=== PATIENT | female | born 1945 | race Caucasian/White ===

== ENCOUNTER 2020-06-02 10:29 | Outpatient (REF) | payer MEDICARE, SELFPAY ==
[2020-06-02 11:39] LABS: MANUAL DIFF FLAG NO
[2020-06-02 11:48] LABS: Basophils Absolute Auto 0.1 X10*3/uL (0.0-0.2); Basophils Percent Auto 0.6 % (0-2); Eosinophils Absolute Auto 0.1 X10*3/uL (0.0-0.4); Eosinophils Percent Auto 1.7 % (0-4); Hematocrit 43.7 % (37-47); Hemoglobin 13.7 g/dl (12.0-16.0); Imm Gran Abs Auto 0.02 X10*3/uL (0.00-0.03); Imm Gran Pct Auto 0.3 % (0.0-0.4); Lymphocytes Absolute Auto 2.1 X10*3/uL (1.2-4.9); Lymphocytes Percent Auto 27.5 % (20-40); Mean Corpuscular HGB Conc 31.4 g/dl (31.0-35.0); Mean Corpuscular Hemoglobin 28.5 pg (27.0-33.0); Mean Corpuscular Volume 90.9 fL (80-98); Mean Platelet Volume 10.3 fL (9.4-12.3); Monocytes Absolute Auto 0.7 X10*3/uL (0.1-1.2); Monocytes Percent Auto 9.6 % (2-11); Neutrophils Absolute Auto 4.6 X10*3/uL (2.0-8.3); Neutrophils Percent Auto 60.3 % (45-73); Platelet Count 246 X10*3/uL (160-400); Red Blood Count 4.81 X10*6/uL (4.20-5.50); Red Cell Distribution Width 14.6 % (11.0-16.0); White Blood Count 7.7 X10*3/uL (4.8-10.8)
[2020-06-02 11:56] LABS: Estimated Average Glucose 318 mg/dL; Hemoglobin A1c % 12.7 %
[2020-06-02 12:07] LABS: Alanine Aminotransferase 13 U/L (0-31); Albumin Level 3.8 g/dL (3.5-5.0); Alkaline Phosphatase 92 U/L (39-117); Anion Gap 14 (12-20); Aspartate Amino Transferase 15 U/L (5-31); Bilirubin Total 0.5 mg/dL (0.0-1.0); Blood Urea Nitrogen 13 mg/dL (9-16); Calcium 9.2 mg/dL (8.4-10.2); Carbon Dioxide 28 mmol/L (22-29); Chloride 103 mmol/L (96-108); Cholesterol 182 mg/dL; Estimated Glomerular Filt Rate > 60; Glucose Fasting 167 mg/dL (60-99); HDL Cholesterol 85 mg/dL; LDL Cholesterol Calculated 84 mg/dl; Potassium 4.1 mmol/l (3.3-5.1); Sodium 141 mmol/L (135-145); Total Protein 7.4 g/dL (6.5-8.0); Triglycerides 67 mg/dL
[2020-06-02 12:14] LABS: Creatinine Urine 109.26 mg/dL; Microalbum/Creatinine Ratio Ur 35.6 ug/mg cr
[2020-06-02 12:20] LABS: TSH reflex Free T4 2.21 mIU/mL (0.32-4.0); Vitamin D 25-OH Total 39.4 ng/mL (>30)
[2020-06-02 12:34] LABS: Folate 19.4 ng/mL (> or = 4.0); Vitamin B12 1329 pg/mL (200-900)
== END 2020-06-02 10:30 | disposition home or self-care (01) ==
LOC: HO.LAB 10:29
PROVIDERS: PCP Internal Medicine; Visit Provider Internal Medicine
DX: E11.65 Type 2 diabetes mellitus with hyperglycemia (principal); E11.29 Type 2 diabetes mellitus with other diabetic kidney complication; R63.6 Underweight; R00.2 Palpitations; Z78.0 Asymptomatic menopausal state
CPT/HCPCS: 36415; 80053; 80061; 82043; 82306; 82607; 82746; 83036; 84443; 85025

== ENCOUNTER 2021-08-19 09:16 | Outpatient (REF) | payer MEDICARE, SELFPAY ==
[2021-08-19 10:43] LABS: Creatinine Urine 98.64 mg/dL; Microalbum/Creatinine Ratio Ur 42.5 ug/mg cr
[2021-08-19 10:50] LABS: Alanine Aminotransferase 14 U/L (0-31); Anion Gap 13 (12-20); Aspartate Amino Transferase 14 U/L (5-31); Blood Urea Nitrogen 15 mg/dL (9-16); Calcium 9.7 mg/dL (8.4-10.2); Carbon Dioxide 30 mmol/L (22-29); Chloride 100 mmol/L (96-108); Cholesterol 192 mg/dL; Estimated Glomerular Filt Rate > 60; Glucose Fasting 165 mg/dL (60-99); HDL Cholesterol 84 mg/dL; LDL Cholesterol Calculated 96 mg/dl; Potassium 4.2 mmol/L (3.3-5.1); Sodium 139 mmol/L (135-145); Triglycerides 63 mg/dL
[2021-08-19 11:00] LABS: Vitamin D 25-OH Total 50.9 ng/mL (>30)
== END 2021-08-19 09:17 | disposition home or self-care (01) ==
LOC: HO.LAB 09:16
PROVIDERS: PCP Internal Medicine; Visit Provider Internal Medicine
DX: E11.65 Type 2 diabetes mellitus with hyperglycemia (principal); E11.29 Type 2 diabetes mellitus with other diabetic kidney complication; R00.2 Palpitations; R63.6 Underweight; R80.9 Proteinuria, unspecified
CPT/HCPCS: 36415; 80048; 80061; 82043; 82306; 84450; 84460

== ENCOUNTER 2022-07-11 18:27 | Inpatient (IN) | payer MEDICARE, SELFPAY ==
--- NOTE | ~2022-07-11 | XR_ITS ---
EXAMINATION: XR CHEST CLINICAL INFORMATION: Shortness of breath, hypoxic with O2 sat of 86% COMPARISON: Chest x-ray 01/22/2019 TECHNIQUE: Frontal view of the chest was obtained. FINDINGS: Blunted costophrenic angles consistent with small bilateral pleural effusions. Patchy bibasilar opacities right greater than left. No pneumothorax. There appears to be mild bronchial wall thickening bilaterally. Cardiomediastinal silhouette within normal limits. Slightly prominent pulmonary vascular markings, similar to prior. No evidence of overt pulmonary edema. No acute osseous injury identified. XR/XR chest 1V IMPRESSION: 1. Small bilateral pleural effusions and bibasilar opacities, right greater than left, which may represent atelectasis, sequela of aspiration, or pneumonia. 2. Mild bilateral bronchial wall thickening.
--- NOTE | 2022-07-11 18:35 | ECG_ITS ---
Test Reason : SOB Blood Pressure : / mmHG Vent. Rate : 103 BPM Atrial Rate : 103 BPM P-R Int : 124 ms QRS Dur : 068 ms QT Int : 320 ms P-R-T Axes : 084 015 069 degrees QTc Int : 419 ms Sinus tachycardia Biatrial enlargement Abnormal ECG When compared with ECG of 03-AUG-2018 10:41, T wave inversion no longer evident in Inferior leads Referred By: Gopi Sarmiento Electronically Signed By:SANJAY HARVEY MD
[2022-07-11 18:37] VITALS: BP 122/68; PULSE 111; RESP 18; TEMP 36.9; O2SAT 86; BMI 16.2
--- NOTE | 2022-07-11 18:41 | ED_ITS ---
HPI - General Adult General Chief complaint: Dyspnea Stated complaint: rapid heart beat/ sob Time Seen by Provider: 07/11/22 19:01 Related Data Home Medications Medication Instructions Recorded Confirmed ascorbic acid (vitamin C) 500 mg mg PO 05/26/20 06/16/22 capsule biotin 1 mg capsule 1 mg PO DAILY 05/26/20 06/16/22 lutein 20 mg capsule 20 mg PO DAILY 05/26/20 06/16/22 magnesium citrate 125 mg capsule 125 mg PO BEDTIME 05/26/20 06/16/22 tceesqbs-fki-uqizb ac 400 tab PO 05/26/20 06/16/22 mcg-calcium carb 500 mg-vit K1 20 mcg tablet (Women's 50 Plus Multivitamin) metformin 500 mg tablet 500 mg PO QPM 06/16/22 06/16/22 Previous Rx's Medication Instructions Recorded blood sugar diagnostic (SpendjiTouch #100 ea 07/08/20 Ultra Blue Test Strip) blood-glucose meter #1 ea 07/08/20 lancets 33 gauge (OneTouch Delica #100 ea 07/08/20 Lancets) Allergies Allergy/AdvReac Type Severity Reaction Status Date / Time sulfa Allergy Unknown diarrhea Verified 06/16/22 14:17 [facility] Past Medical History Medical History (Updated 07/11/22 @ 20:05 by Elizabeth Paredes) Diabetes mellitus with hyperglycemia, without long-term current use of insulin Diabetes mellitus with microalbuminuria, without long-term current use of insulin H/O fracture of wrist Hx of fracture of wrist Intermittent palpitations Pneumothorax Underweight Vaccination refused by patient Surgical History History of femoral hernia repair Family History Family History Father Diabetes mellitus Mother Essential hypertension Sister Breast cancer Social History Social History Housing: House Alcohol intake: current Patient Tobacco Use Status: Never used Tobacco e-Cigarette/Vaping Use: Never Used Advance Directives: No Advance Directives Information Provided: Yes Current occupational status: retired Cognitive needs: No Hearing needs: No Vision needs: No Physical Exam ED Vital Signs: Vital Signs - 24 hr 07/11/22 18:37 07/11/22 19:30 Temperature 98.4 F Pulse Rate 111 H 103 H Respiratory Rate 18 20 Blood Pressure 122/68 Pulse Oximetry 86 L Oxygen Delivery Method Room Air BMI result Body Mass Index 16.2 Course Course Course Narrative: RME; 76 yold garrett presents to the ED for coughing and SOB for couple of weeks. 02 sat on room air 86%. patient is tachychardic. lower extremities negative for swelling, pitting edema, or calf tenderness. lungs sounds are clear, but cough sound wet. Charge nurse Tiffany informed and patient will be brought into the ED. nasal canula placed on patient. Medications Administered Discontinued Medications Generic Name Dose Route Start Last Admin Trade Name Freq PRN Reason Stop Dose Admin Albuterol/Ipratropium 3 ml 07/11/22 19:12 07/11/22 19:30 Albuterol/Iprat 2.5/0.5mg 3 Ml Ampul.Neb INHALE 07/11/22 19:13 3 ml ONCE ONE Administration Methylprednisolone Sodium Succinate 125 mg 07/11/22 19:12 07/11/22 19:43 Methylprednisolone Sod Succ 125 Mg/2 Ml Vial IVPUSH 07/11/22 19:13 125 mg ONCE ONE Administration Medical Decision Making Lab Data 07/11/22 18:45 07/11/22 18:45 Labs: Lab Results 07/11/22 07/11/22 07/11/22 Range/Units 18:45 18:45 18:45 WBC 17.2 H (4.8-10.8) X10*3/uL RBC 4.53 (4.20-5.50) X10*6/uL Hgb 13.3 (12.0-16.0) g/dl Hct 40.5 (37.0-47.0) % MCV 89.4 (80.0-98.0) fL MCH 29.4 (27.0-33.0) pg MCHC 32.8 (31.0-35.0) g/dl RDW 14.4 (11.0-16.0) % Plt Count 379 (160-400) X10*3/uL MPV 9.7 (9.4-12.3) fL Immature Gran % (Auto) 1.5 H (0.0-0.4) % Neut % (Auto) 86.8 H (45-73) % Lymph % (Auto) 5.9 L (20-40) % [place] % (Auto) 5.5 (2-11) % Eos % (Auto) 0.2 (0-4) % Baso % (Auto) 0.1 (0-2) % Lymph # (Auto) 1.0 L (1.2-4.9) X10*3/uL [place] # (Auto) 0.9 (0.1-1.2) X10*3/uL Eos # (Auto) 0.0 (0.0-0.4) X10*3/uL Baso # (Auto) 0.0 (0.0-0.2) X10*3/uL Abs Immat Gran (auto) 0.25 H (0.00-0.03) X10*3/uL Absolute Neuts (auto) 15.0 H (2.0-8.3) x10*3/uL Absolute Nucleated RBC 0.000 (0.0-0.012) X10*3/uL Nucleated RBC % (auto) 0.0 (0.0-0.2) /100WBC PT (10.0-13.1) SEC INR (0.9-1.1) APTT (26.0-36.4) SEC Sodium 138 (135-145) mmol/L Potassium 4.1 (3.3-5.1) mmol/L Chloride 96 (96-108) mmol/L Carbon Dioxide 31 H (22-29) mmol/L Anion Gap 15 (12-20) BUN 19 H (9-16) mg/dL Creatinine 0.81 (0.5-1.4) mg/dL Estim Creat Clear Calc 41.4 Estimated GFR > 60 Random Glucose 480 H* (60-115) mg/dL Lactic Acid (0.5-2.0) mmol/L Calcium 9.4 (8.4-10.2) mg/dL Total Bilirubin 0.4 (0.0-1.0) mg/dL AST 14 (5-31) U/L ALT 19 (0-31) U/L Alkaline Phosphatase 104 (39-117) U/L Troponin I High Sens < 3.5 (<3.5-17.0) ng/L B-Natriuretic Peptide (<100) pg/mL Total Protein 6.6 (6.5-8.0) g/dL Albumin 3.1 L (3.5-5.0) g/dL Influenza Type A (PCR) (Negative) Influenza Type B (PCR) (Negative) RSV RNA Qual (PCR) (Negative) SARS-CoV-2 RNA (RT-PCR) (Negative) 07/11/22 07/11/22 07/11/22 Range/Units 18:45 18:45 18:45 WBC (4.8-10.8) X10*3/uL RBC (4.20-5.50) X10*6/uL Hgb (12.0-16.0) g/dl Hct (37.0-47.0) % MCV (80.0-98.0) fL MCH (27.0-33.0) pg MCHC (31.0-35.0) g/dl RDW (11.0-16.0) % Plt Count (160-400) X10*3/uL MPV (9.4-12.3) fL Immature Gran % (Auto) (0.0-0.4) % Neut % (Auto) (45-73) % Lymph % (Auto) (20-40) % [place] % (Auto) (2-11) % Eos % (Auto) (0-4) % Baso % (Auto) (0-2) % Lymph # (Auto) (1.2-4.9) X10*3/uL [place] # (Auto) (0.1-1.2) X10*3/uL Eos # (Auto) (0.0-0.4) X10*3/uL Baso # (Auto) (0.0-0.2) X10*3/uL Abs Immat Gran (auto) (0.00-0.03) X10*3/uL Absolute Neuts (auto) (2.0-8.3) x10*3/uL Absolute Nucleated RBC (0.0-0.012) X10*3/uL Nucleated RBC % (auto) (0.0-0.2) /100WBC PT 13.5 H (10.0-13.1) SEC INR 1.2 H (0.9-1.1) APTT 30.6 (26.0-36.4) SEC Sodium (135-145) mmol/L Potassium (3.3-5.1) mmol/L Chloride (96-108) mmol/L Carbon Dioxide (22-29) mmol/L Anion Gap (12-20) BUN (9-16) mg/dL Creatinine (0.5-1.4) mg/dL Estim Creat Clear Calc Estimated GFR Random Glucose (60-115) mg/dL Lactic Acid (0.5-2.0) mmol/L Calcium (8.4-10.2) mg/dL Total Bilirubin (0.0-1.0) mg/dL AST (5-31) U/L ALT (0-31) U/L Alkaline Phosphatase (39-117) U/L Troponin I High Sens (<3.5-17.0) ng/L B-Natriuretic Peptide 138 H (<100) pg/mL Total Protein (6.5-8.0) g/dL Albumin (3.5-5.0) g/dL Influenza Type A (PCR) NEGATIVE (Negative) Influenza Type B (PCR) NEGATIVE (Negative) RSV RNA Qual (PCR) NEGATIVE (Negative) SARS-CoV-2 RNA (RT-PCR) NEGATIVE (Negative) 07/11/22 Range/Units 19:31 WBC (4.8-10.8) X10*3/uL RBC (4.20-5.50) X10*6/uL Hgb (12.0-16.0) g/dl Hct (37.0-47.0) % MCV (80.0-98.0) fL MCH (27.0-33.0) pg MCHC (31.0-35.0) g/dl RDW (11.0-16.0) % Plt Count (160-400) X10*3/uL MPV (9.4-12.3) fL Immature Gran % (Auto) (0.0-0.4) % Neut % (Auto) (45-73) % Lymph % (Auto) (20-40) % [place] % (Auto) (2-11) % Eos % (Auto) (0-4) % Baso % (Auto) (0-2) % Lymph # (Auto) (1.2-4.9) X10*3/uL [place] # (Auto) (0.1-1.2) X10*3/uL Eos # (Auto) (0.0-0.4) X10*3/uL Baso # (Auto) (0.0-0.2) X10*3/uL Abs Immat Gran (auto) (0.00-0.03) X10*3/uL Absolute Neuts (auto) (2.0-8.3) x10*3/uL Absolute Nucleated RBC (0.0-0.012) X10*3/uL Nucleated RBC % (auto) (0.0-0.2) /100WBC PT (10.0-13.1) SEC INR (0.9-1.1) APTT (26.0-36.4) SEC Sodium (135-145) mmol/L Potassium (3.3-5.1) mmol/L Chloride (96-108) mmol/L Carbon Dioxide (22-29) mmol/L Anion Gap (12-20) BUN (9-16) mg/dL Creatinine (0.5-1.4) mg/dL Estim Creat Clear Calc Estimated GFR Random Glucose (60-115) mg/dL Lactic Acid 1.6 (0.5-2.0) mmol/L Calcium (8.4-10.2) mg/dL Total Bilirubin (0.0-1.0) mg/dL AST (5-31) U/L ALT (0-31) U/L Alkaline Phosphatase (39-117) U/L Troponin I High Sens (<3.5-17.0) ng/L B-Natriuretic Peptide (<100) pg/mL Total Protein (6.5-8.0) g/dL Albumin (3.5-5.0) g/dL Influenza Type A (PCR) (Negative) Influenza Type B (PCR) (Negative) RSV RNA Qual (PCR) (Negative) SARS-CoV-2 RNA (RT-PCR) (Negative) Discharge Plan Discharge Clinical Impression: Pneumonia, Acute hyperglycemia Patient Disposition: Admitted As Inpatient
--- NOTE | 2022-07-11 18:44 | PC.NURSE ---
Patient placed on 2 L of O2 with good effect O2 sat up to 91% ON o2
--- OUTSIDE RECORDS SUMMARY | 2022-07-11 18:58 | XMS_ITS | Continuity of Care Document ---
:1945 Author Organization [facility] Endocrinology and D willarddavid Address [address] [place] [address]- Care Team Providers Name Role Phone Ho VALENTINO, Rosalinda Li Primary Care Physician [phone] Encounter [facility] [place](s): 12/08/21 - 01/07/22 [facility] Endocrinology and Diabetes [address] [place] [id number] Allergies, Adverse Reactions, Alerts Substance Reaction Severity Status sulfADIAZINE strange feeling all over my body , kind of lik e a hot Active feeling Versed flat lined Active Medications Accu-Chek Sandy Test Strips See Instructions, # 50 bottle, Refills 11, Tot. Refills 11, Maintenance, TEST BLOOD GLUCOSE TWICE DAILY DIRECTED, 11/05/09 13:40:55, [id number], AA Test Pharmacy-Do Not Use Start Date: 11/05/09 Status: OrderedAccu-Chek Multiclix Drum Lancets See Instructions, # 102 application, Refills 11, Tot. Refills 11, Maintenance, TEST BLOOD GLUCOSE TWICE DAILY DIRECTED, 11/05/09 13:41:03, [id number], AA Test Pharmacy-Do Not Use Start Date: 11/05/09 Status: OrderedBiotin By Mouth, Daily, 0 Refills, Maintenance, 12/02/21 13:53:00 EDT, Partial fill upon patient request ifthe prescription is for a schedule II opioid drug. Start Date: 12/02/21 Status: OrderedCalcium Acetate = 2,001 mg, By Mouth, 3 times a day, 0 Refills, Maintenance Start Date: 05/03/12 Status: OrderedFlax Seed Oil By Mouth, Daily, 0 Refills, Maintenance Start Date: 05/03/12 Status: Orderedgabapentin 100 mg oral capsule 100 mg, 1, capsule, By Mouth, 3 times a day, # 90 capsule, Refills 0, Tot. Refills 0, Maintenance, 08/24/17 13:32:45, Route to Pharmacy Electronically, [id number], [id number] Start Date: 08/24/17 Status: OrderedLutein By Mouth, Daily, 0 Refills, Maintenance, 12/02/21 13:53:00 EDT, Partial fill upon patient request ifthe prescription is for a schedule II opioid drug. Start Date: 12/02/21 Status: OrderedMagnesium Magnesium, Refills 0, Maintenance, 12/02/21 13:54:00 EDT, Supply Start Date: 12/02/21 Status: OrderedMagnesium Carbonate 0 Refills, Maintenance Start Date: 05/03/12 Status: OrderedMetformin By Mouth, 0 Refills, Maintenance, 12/02/21 13:54:00 EDT, Partial fill upon patient request if the prescription is for a schedule II opioid drug. Start Date: 12/02/21 Status: OrderedMisc Rx Daily, Refills 0, Maintenance, 05/03/12 14:33:40 Start Date: 05/03/12 Status: OrderedMisc Rx Refills 0, Maintenance, 05/03/12 14:35:07 Start Date: 05/03/12 Status: OrderedMultivitamin By Mouth, Daily, 0 Refills, Maintenance Start Date: 05/03/12 Status: OrderedVitamin B12 0 Refills, Maintenance Start Date: 05/03/12 Status: OrderedVitamin C 0 Refills, Maintenance Start Date: 05/03/12 Status: OrderedVitamin E By Mouth, Daily, 0 Refills, Maintenance Start Date: 05/03/12 Status: Ordered Problem List Condition Effective Dates Status Health Status Informant Underweight(Confirmed) Active Social History Social History Type Response Smoking Status Never smoker entered on: 08/24/17 Sex
--- OUTSIDE RECORDS SUMMARY | 2022-07-11 18:58 | XMS_ITS | Continuity of Care Document ---
:1945 Author Organization [facility] Endocrinology and D willarddavid Address [address] [place] [address]- Care Team Providers Name Role Phone Ho VALENTINO, Rosalinda Li Primary Care Physician Encounter [facility] [place] Date(s): 12/02/21 - 01/01/22 [facility] Endocrinology and Diabetes [address] [place] [id number]- Attending Physician: Storm Obrien Admitting Physician: AdmStorm dawkins Referring Physician: Admtr, Mayo8 Allergies, Adverse Reactions, Alerts Substance Reaction Severity Status sulfADIAZINE strange feeling all over my body , kind of lik e a hot Active feeling Versed flat lined Active Medications Accu-Chek Sandy Test Strips See Instructions, # 50 bottle, Refills 11, Tot. Refills 11, Maintenance, TEST BLOOD GLUCOSE TWICE DAILY DIRECTED, 11/05/09 13:40:55, [id number], AA Test Pharmacy-Do Not Use Start Date: 11/05/09 Status: OrderedAccu-Chek Multiclix Drum Lancets See Instructions, # 102 application, Refills 11, Tot. Refills 11, Maintenance, TEST BLOOD GLUCOSE TWICE DAILY DIRECTED, 11/05/09 13:41:03, [id number], AA Test Pharmacy-Do Not Use Start Date: [...] Maintenance, 08/24/17 13:32:45, Route to Pharmacy Electronically, [id number], [id number] Start Date: 08/24/17 Status: OrderedLutein [...]
--- OUTSIDE RECORDS SUMMARY | 2022-07-11 18:58 | XMS_ITS | Continuity of Care Document ---
:1945 Author Organization [facility] Address [address] [place] [address]- Care Team Providers Name Role Phone Not on Staff, PCP Primary Care Physician Unavailable Encounter [facility] [place] Date(s): 08/17/21 - 09/16/21 [facility] Endocrinology and Diabetes [address] [place] [id number] Allergies, Adverse Reactions, Alerts Substance Reaction Severity Status sulfADIAZINE strange feeling all over my body , kind of lik e a hot Active feeling Versed flat lined Active Medications Accu-Chek Sandy Test Strips See Instructions, # 50 bottle, Refills 11, Tot. Refills 11, Maintenance, TEST BLOOD GLUCOSE TWICE DAILY DIRECTED, 11/05/09 13:40:55, [id number], AA Test Pharmacy-Do Not Use Start Date: 11/05/09 Status: OrderedAccu-Chek Multiclix Drum Lancets See Instructions, # 102 application, Refills 11, Tot. Refills 11, Maintenance, TEST BLOOD GLUCOSE TWICE DAILY DIRECTED, 11/05/09 13:41:03, [id number], AA Test Pharmacy-Do Not Use Start Date: 11/05/09 Status: OrderedCalcium Acetate = 2,001 mg, By Mouth, 3 times a day, 0 Refills, Maintenance Start Date: 05/03/12 Status: OrderedFlax Seed Oil By Mouth, Daily, 0 Refills, Maintenance Start Date: 05/03/12 Status: Orderedgabapentin 100 mg oral capsule 100 mg, 1, capsule, By Mouth, 3 times a day, # 90 capsule, Refills 0, Tot. Refills 0, Maintenance, 08/24/17 13:32:45, Route to Pharmacy Electronically, [id number], [id number] Start Date: 08/24/17 Status: OrderedMagnesium Carbonate 0 Refills, Maintenance Start Date: 05/03/12 Status: OrderedMisc Rx Daily, Refills 0, Maintenance, [...] Refills, Maintenance Start Date: 05/03/12 Status: Ordered Social History Social History Type Response Smoking Status Never smoker entered on: 08/24/17 Sex
--- OUTSIDE RECORDS SUMMARY | 2022-07-11 18:58 | XMS_ITS | Continuity of Care Document ---
:1945 Author Organization [facility] Address [address] [place] [address]- Care Team Providers Name Role Phone Not on Staff, PCP Primary Care Physician Unavailable [place] [facility] [place] [facility] Endocrinology and Diabetes [address] [place] [id number] Allergies, Adverse Reactions, Alerts Substance Reaction Severity Status sulfADIAZINE strange feeling all over my body , kind of lik e a hot Active feeling Versed flat lined Active Medications Accu-Chek Sandy Test Strips See Instructions, # 50 bottle, Refills 11, Tot. Refills 11, Maintenance, TEST BLOOD GLUCOSE TWICE DAILY DIRECTED, 11/05/09 13:40:55, [id number], AA Test Pharmacy-Do Not Use Start Date: 11/05/09 Status: OrderedAccu-Chek Multiclix Drum Lancets See Instructions, # 102 application, Refills 11, Tot. Refills 11, Maintenance, TEST BLOOD GLUCOSE TWICE DAILY DIRECTED, 11/05/09 13:41:03, [id number], AA Test Pharmacy-Do Not Use Start Date: [...] Maintenance, 08/24/17 13:32:45, Route to Pharmacy Electronically, [id number], [id number] Start Date: 08/24/17 Status: [...]
--- OUTSIDE RECORDS SUMMARY | 2022-07-11 18:58 | XMS_ITS | Continuity of Care Document ---
:1945 Author Organization [facility] Endocrinology and D willarddavid Address [address] [place] [address]- Care Team Providers Name Role Phone Ho VALENTINO, Rosalinda Li Primary Care Physician [place] [facility] [place]21 [facility] Endocrinology and Diabetes [address] [place] [place] [id number] Allergies, Adverse Reactions, Alerts Substance Reaction Severity Status sulfADIAZINE strange feeling all over my body , kind of lik e a hot Active feeling Versed flat lined Active Medications Accu-Chek Sandy Test Strips See Instructions, # 50 bottle, Refills 11, Tot. Refills 11, Maintenance, TEST BLOOD GLUCOSE TWICE DAILY DIRECTED, 11/05/09 13:40:55, [id number], AA Test Pharmacy-Do Not Use Start Date: 11/05/09 Status: OrderedAccu-Chek Multiclix Drum Lancets See Instructions, # 102 application, Refills 11, Tot. Refills 11, Maintenance, TEST BLOOD GLUCOSE TWICE DAILY DIRECTED, 11/05/09 13:41:03, [id number], AA Test Pharmacy-Do Not Use Start Date: [...] Maintenance, 08/24/17 13:32:45, Route to Pharmacy Electronically, [id number], [id number] Start Date: 08/24/17 Status: OrderedLutein [...]
[2022-07-11 19:05] LABS: MANUAL DIFF FLAG NO
[2022-07-11 19:12] LABS: Basophils Percent Auto 0.1 % (0-2); Eosinophils Percent Auto 0.2 % (0-4); Hematocrit 40.5 % (37.0-47.0); Hemoglobin 13.3 g/dl (12.0-16.0); INTERNATIONAL NORM RATIO 1.2 (0.9-1.1); Imm Gran Abs Auto 0.25 X10*3/uL (0.00-0.03); Imm Gran Pct Auto 1.5 % (0.0-0.4); Lymphocytes Percent Auto 5.9 % (20-40); Mean Corpuscular HGB Conc 32.8 g/dl (31.0-35.0); Mean Corpuscular Hemoglobin 29.4 pg (27.0-33.0); Mean Corpuscular Volume 89.4 fL (80.0-98.0); Mean Platelet Volume 9.7 fL (9.4-12.3); Monocytes Absolute Auto 0.9 X10*3/uL (0.1-1.2); Monocytes Percent Auto 5.5 % (2-11); Neutrophils Percent Auto 86.8 % (45-73); Platelet Count 379 X10*3/uL (160-400); Prothrombin Time 13.5 SEC (10.0-13.1); Red Blood Count 4.53 X10*6/uL (4.20-5.50); Red Cell Distribution Width 14.4 % (11.0-16.0); White Blood Count 17.2 X10*3/uL (4.8-10.8)
[2022-07-11 19:15] LABS: Partial Thromboplastin Time 30.6 SEC (26.0-36.4)
[2022-07-11 19:30] VITALS: PULSE 103; RESP 20; O2SAT 96
[2022-07-11 19:30] LABS: Alanine Aminotransferase 19 U/L (0-31); Albumin Level 3.1 g/dL (3.5-5.0); Alkaline Phosphatase 104 U/L (39-117); Anion Gap 15 (12-20); Aspartate Amino Transferase 14 U/L (5-31); B Type Natriuretic Peptide 138 pg/mL (<100); Bilirubin Total 0.4 mg/dL (0.0-1.0); Blood Urea Nitrogen 19 mg/dL (9-16); Calcium 9.4 mg/dL (8.4-10.2); Carbon Dioxide 31 mmol/L (22-29); Chloride 96 mmol/L (96-108); Creatinine Clr Calc Pharmacy 41.4; Estimated Glomerular Filt Rate > 60; Glucose Random 480 mg/dL (60-115); Potassium 4.1 mmol/L (3.3-5.1); Sodium 138 mmol/L (135-145); Total Protein 6.6 g/dL (6.5-8.0)
[2022-07-11] MEDS: Albuterol/Iprat 2.5/0.5MG 3 ML AMPUL.NEB INHALE (19:30)
[2022-07-11 19:36] LABS: Troponin-I High Sensitivity < 3.5 ng/L (<3.5-17.0)
[2022-07-11 19:43] LABS: Influenza A PCR NEGATIVE (Negative); Influenza B PCR NEGATIVE (Negative); Resp Syncy Virus RNA Qual PCR NEGATIVE (Negative); SARS COV2 PCR INHOUSE NEGATIVE (Negative)
[2022-07-11] MEDS: methylPREDNISolone Sod Succ 125 MG/2 ML VIAL IVPUSH (19:43)
--- NOTE | 2022-07-11 19:43 | ED_ITS ---
HPI - General Adult General Chief complaint: Dyspnea Stated complaint: rapid heart beat/ sob Time Seen by Provider: 07/11/22 19:01 Source: patient, family and old records reviewed Limitations: no limitations History of Present Illness HPI narrative: Patient with cough for the past 2 weeks now with increasing shortness of breath over the last few days. Today very short of breath even with minimal exertion. Cough with hazel sputum. Chest pain with cough and breathing. No nausea vomiting Some chills no documented fevers No prior history of similar issues. No history of COPD or asthma. She is not a smoker. Never smoked. Some mild pedal edema which is also new. Breathing is worse lying flat. No prior history of cardiac disease or CHF No history of thromboembolic disease Related Data Home Medications Medication Instructions Recorded Confirmed ascorbic acid (vitamin C) 500 mg mg PO 05/26/20 06/16/22 capsule biotin 1 mg capsule 1 mg PO DAILY 05/26/20 06/16/22 lutein 20 mg capsule 20 mg PO DAILY 05/26/20 06/16/22 magnesium citrate 125 mg capsule 125 mg PO BEDTIME 05/26/20 06/16/22 llfobyce-dmw-zualt ac 400 tab PO 05/26/20 06/16/22 mcg-calcium carb 500 mg-vit K1 20 mcg tablet (Women's 50 Plus Multivitamin) metformin 500 mg tablet 500 mg PO QPM 06/16/22 06/16/22 Previous Rx's Medication Instructions Recorded blood sugar diagnostic (Recruit.netTouch #100 ea 07/08/20 Ultra Blue Test Strip) blood-glucose meter #1 ea 07/08/20 lancets 33 gauge (OneTouch Delica #100 ea 07/08/20 Lancets) Allergies Allergy/AdvReac Type Severity Reaction Status Date / Time sulfa Allergy Unknown diarrhea Verified 06/16/22 14:17 Review of Systems Constitutional: Comments: General malaise Cardiovascular: Comments: Chest pain is described Respiratory: Comments: Dyspnea as described Gastrointestinal: Comments: No nausea vomiting diarrhea or abdominal pain Genitourinary: Comments: No dysuria hematuria hesitancy or frequency Musculoskeletal: Comments: Bilateral mild pedal edema Integumentary/Breasts: Comments: No new rash Neurologic: Comments: No weakness numbness or paresthesias [facility] Past Medical History Medical History (Updated 07/11/22 @ 19:51 by Chevy Craft MD) Diabetes mellitus with hyperglycemia, without long-term current use of insulin Diabetes mellitus with microalbuminuria, without long-term current use of insulin H/O fracture of wrist Hx of fracture of wrist Intermittent palpitations Underweight Vaccination refused by patient Surgical History History of femoral hernia repair Family History Family History Father Diabetes mellitus Mother Essential hypertension Sister Breast cancer Social History Social History Housing: House Alcohol intake: current Patient Tobacco Use Status: Never used Tobacco e-Cigarette/Vaping Use: Never Used Advance Directives: No Advance Directives Information Provided: Yes Current occupational status: retired Cognitive needs: No Hearing needs: No Vision needs: No Physical Exam ED Vital Signs: Vital Signs - 24 hr 07/11/22 18:37 07/11/22 19:30 Temperature 98.4 F Pulse Rate 111 H 103 H Respiratory Rate 18 20 Blood Pressure 122/68 Pulse Oximetry 86 L Oxygen Delivery Method Room Air BMI result Body Mass Index 16.2 Const Other: Awake alert. Dyspnea. Resp Other: Bilateral expiratory wheezes. Bibasilar rales. Cardio Other: Regular rate rhythm without murmurs rubs or gallops GI Other: Soft nontender nondistended with normoactive bowel sounds Skin Other: Warm pink and dry without rash Neuro Other: Nonfocal neuro exam Medications Administered Discontinued Medications Generic Name Dose Route Start Last Admin Trade Name Freq PRN Reason Stop Dose Admin Albuterol/Ipratropium 3 ml 07/11/22 19:12 07/11/22 19:30 Albuterol/Iprat 2.5/0.5mg 3 Ml Ampul.Neb INHALE 07/11/22 19:13 3 ml ONCE ONE Administration Methylprednisolone Sodium Succinate 125 mg 07/11/22 19:12 07/11/22 19:43 Methylprednisolone Sod Succ 125 Mg/2 Ml Vial IVPUSH 07/11/22 19:13 125 mg ONCE ONE Administration Medical Decision Making Medical Decision Making MDM Narrative: Patient with acute dyspnea after 2 weeks of cough. Pneumonia, CHF, bronchitis, reactive airways, viral syndrome are all possibilities. More likely infectious at this point. Will order Solu-Medrol with a Duo[place]eb. 19:46[place] [address] Chest x-ray by my interpretation shows right lower lobe infiltrate. Will order IV fluids, ceftriaxone, Zithromax. No evidence of sepsis at this point given normal blood pressure. Awaiting lactic acid. Blood glucose 480. IV insulin ordered Lab Data 07/11/22 18:45 07/11/22 18:45 Labs: Lab Results 07/11/22 07/11/22 07/11/22 Range/Units 18:45 18:45 18:45 WBC 17.2 H (4.8-10.8) X10*3/uL RBC 4.53 (4.20-5.50) X10*6/uL Hgb 13.3 (12.0-16.0) g/dl Hct 40.5 (37.0-47.0) % MCV 89.4 (80.0-98.0) fL MCH 29.4 (27.0-33.0) pg MCHC 32.8 (31.0-35.0) g/dl RDW 14.4 (11.0-16.0) % Plt Count 379 (160-400) X10*3/uL MPV 9.7 (9.4-12.3) fL Immature Gran % (Auto) 1.5 H (0.0-0.4) % Neut % (Auto) 86.8 H (45-73) % Lymph % (Auto) 5.9 L (20-40) % Motley % (Auto) 5.5 (2-11) % Eos % (Auto) 0.2 (0-4) % Baso % (Auto) 0.1 (0-2) % Lymph # (Auto) 1.0 L (1.2-4.9) X10*3/uL Motley # (Auto) 0.9 (0.1-1.2) X10*3/uL Eos # (Auto) 0.0 (0.0-0.4) X10*3/uL Baso # (Auto) 0.0 (0.0-0.2) X10*3/uL Abs Immat Gran (auto) 0.25 H (0.00-0.03) X10*3/uL Absolute Neuts (auto) 15.0 H (2.0-8.3) x10*3/uL Absolute Nucleated RBC 0.000 (0.0-0.012) X10*3/uL Nucleated RBC % (auto) 0.0 (0.0-0.2) /100WBC PT (10.0-13.1) SEC INR (0.9-1.1) APTT (26.0-36.4) SEC Sodium 138 (135-145) mmol/L Potassium 4.1 (3.3-5.1) mmol/L Chloride 96 (96-108) mmol/L Carbon Dioxide 31 H (22-29) mmol/L Anion Gap 15 (12-20) BUN 19 H (9-16) mg/dL Creatinine 0.81 (0.5-1.4) mg/dL Estim Creat Clear Calc 41.4 Estimated GFR > 60 Random Glucose 480 H* (60-115) mg/dL Calcium 9.4 (8.4-10.2) mg/dL Total Bilirubin 0.4 (0.0-1.0) mg/dL AST 14 (5-31) U/L ALT 19 (0-31) U/L Alkaline Phosphatase 104 (39-117) U/L Troponin I High Sens < 3.5 (<3.5-17.0) ng/L B-Natriuretic Peptide (<100) pg/mL Total Protein 6.6 (6.5-8.0) g/dL Albumin 3.1 L (3.5-5.0) g/dL Influenza Type A (PCR) (Negative) Influenza Type B (PCR) (Negative) RSV RNA Qual (PCR) (Negative) SARS-CoV-2 RNA (RT-PCR) (Negative) 07/11/22 07/11/22 07/11/22 Range/Units 18:45 18:45 18:45 WBC (4.8-10.8) X10*3/uL RBC (4.20-5.50) X10*6/uL Hgb (12.0-16.0) g/dl Hct (37.0-47.0) % MCV (80.0-98.0) fL MCH (27.0-33.0) pg MCHC (31.0-35.0) g/dl RDW (11.0-16.0) % Plt Count (160-400) X10*3/uL MPV (9.4-12.3) fL Immature Gran % (Auto) (0.0-0.4) % Neut % (Auto) (45-73) % Lymph % (Auto) (20-40) % Motley % (Auto) (2-11) % Eos % (Auto) (0-4) % Baso % (Auto) (0-2) % Lymph # (Auto) (1.2-4.9) X10*3/uL Motley # (Auto) (0.1-1.2) X10*3/uL Eos # (Auto) (0.0-0.4) X10*3/uL Baso # (Auto) (0.0-0.2) X10*3/uL Abs Immat Gran (auto) (0.00-0.03) X10*3/uL Absolute Neuts (auto) (2.0-8.3) x10*3/uL Absolute Nucleated RBC (0.0-0.012) X10*3/uL Nucleated RBC % (auto) (0.0-0.2) /100WBC PT 13.5 H (10.0-13.1) SEC INR 1.2 H (0.9-1.1) APTT 30.6 (26.0-36.4) SEC Sodium (135-145) mmol/L Potassium (3.3-5.1) mmol/L Chloride (96-108) mmol/L Carbon Dioxide (22-29) mmol/L Anion Gap (12-20) BUN (9-16) mg/dL Creatinine (0.5-1.4) mg/dL Estim Creat Clear Calc Estimated GFR Random Glucose (60-115) mg/dL Calcium (8.4-10.2) mg/dL Total Bilirubin (0.0-1.0) mg/dL AST (5-31) U/L ALT (0-31) U/L Alkaline Phosphatase (39-117) U/L Troponin I High Sens (<3.5-17.0) ng/L B-Natriuretic Peptide 138 H (<100) pg/mL Total Protein (6.5-8.0) g/dL Albumin (3.5-5.0) g/dL Influenza Type A (PCR) NEGATIVE (Negative) Influenza Type B (PCR) NEGATIVE (Negative) RSV RNA Qual (PCR) NEGATIVE (Negative) SARS-CoV-2 RNA (RT-PCR) NEGATIVE (Negative) Discharge Plan Discharge Prescriptions: No Action Women's 50 Plus Multivitamin 400 mcg-500 mg calcium-20 mcg tablet PO magnesium citrate 125 mg capsule 125 mg PO BEDTIME lutein 20 mg capsule 20 mg PO DAILY Rx Instructions: give with meal/snack ascorbic acid (vitamin C) 500 mg capsule PO biotin 1 mg capsule 1 mg PO DAILY (DME) OneTouch Ultra Blue Test Strip Strip See Rx Instructions .ROUTE .MEDSUPPLY Qty: 100 5RF Rx Instructions: Check fasting blood sugar daily at varied time (DME) blood-glucose meter Kit See Rx Instructions .ROUTE .MEDSUPPLY Qty: 1 0RF Rx Instructions: As directed- poc daily at varied time (DME) lancets [OneTouch Delica Lancets] 33 gauge misc See Rx Instructions .ROUTE .MEDSUPPLY Qty: 100 4RF Rx Instructions: Check blood sugar daily at varied time metformin 500 mg tablet 500 mg PO QPM
[2022-07-11 19:56] LABS: Lactic Acid 1.6 mmol/L (0.5-2.0)
[2022-07-11 20:07] VITALS: BP 135/73; PULSE 93; RESP 37; TEMP 36.7; O2SAT 94
[2022-07-11 20:07] LABS: Acetone, serum QL Negative (Negative)
[2022-07-11] MEDS: Insulin Regular, Human 100 UNIT/ML 3 ML VIAL IVPUSH (20:31)
[2022-07-11] MEDS: cefTRIAXone sodium 1 GM in 0.9 % Sodium Chloride 50 ML IV (20:33)
[2022-07-11] MEDS: Azithromycin 500 MG TABLET PO (20:33)
[2022-07-11] MEDS: 0.9 % Sodium Chloride 1,000 ML 999 ML IV (20:35)
--- NOTE | 2022-07-11 20:36 | PC.NURSE ---
pt AOx3, respiratory rate 32, pt on 2L o2, sat 95%. 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 Craft IV fluids to run slowly.
--- NOTE | 2022-07-11 20:46 | PC.NURSE ---
left lower lobe fine crackles noted, +1 pitting edema in feet.
[2022-07-11 21:12] VITALS: BP 134/77; PULSE 94; RESP 19; O2SAT 95
[2022-07-11 21:19] LABS: Glucose, Whole Blood 316 mg/dL (60-115)
--- NOTE | 2022-07-11 21:19 | PHA.MEDREC ---
MED REC COMPLETE, NO ISSUES Pharmacy Consult ? Medication Reconciliation Pharmacy has completed the medication reconciliation.
--- NOTE | 2022-07-11 22:07 | P.HPHOSP_ITS ---
History of Present Illness Date of Service: 07/11/22 Chief Complaint: sob 81-year-old female with past medical history of diabetes, and previous history of pneumonia presents to the hospital with complaints of not feeling well for the past 1 and half week. Patient reports weakness, shortness of breath, coughing, phlegm, rhinorrhea, feeling feverish, chills, weakness in the legs, loss of appetite. Patient reports no chest pain, no abdominal pain, no nausea or vomiting, no diarrhea constipation, no urinary symptoms and no lower extremity edema. Denies any orthopnea or PND. On arrival to the ED patient found to have a heart rate of 111, satting 86% on room air Labs are significant for WBC count of 17.2, left shift, glucose of 40 80, BNP of 138, troponin less than 3.5, COVID-19 RSV influenza negative Chest x-ray shows small bilateral pleural effusion and bibasilar opacities right greater than left which may represent atelectasis or sequelae of aspiration or pneumonia Mild bilateral bronchial wall thickening patient will be admitted for further management Review of Systems Review of Systems: Yes all other systems are reviewed and are negative [facility] Medical History Diabetes mellitus with hyperglycemia, without long-term current use of insulin Diabetes mellitus with microalbuminuria, without long-term current use of insulin H/O fracture of wrist Hx of fracture of wrist Intermittent palpitations Pneumothorax Underweight Vaccination refused by patient Family History Father Diabetes mellitus Mother Essential hypertension Sister Breast cancer Surgical History History of femoral hernia repair Social History Housing: House Alcohol intake: never Patient Tobacco Use Status: Never used Tobacco Smoked in Last 30 Days: No e-Cigarette/Vaping Use: Never Used Use of substances other than those prescribed or required for medical reasons: No Advance Directives: No Advance Directives Information Provided: Yes Current occupational status: retired Cognitive needs: No Hearing needs: No Vision needs: No Meds Allergies Allergy/AdvReac Type Severity Reaction Status Date / Time sulfa Allergy Unknown diarrhea Verified 06/16/22 14:17 Home Medications Medication Instructions Recorded Confirmed Last Taken Type ascorbic acid (vitamin C) 500 mg 500 mg PO DAILY 05/26/20 07/11/22 07/11/22 History capsule biotin 1 mg capsule 1 mg PO DAILY 05/26/20 07/11/22 Unknown History lutein 20 mg capsule 20 mg PO DAILY 05/26/20 07/11/22 Unknown History magnesium citrate 125 mg capsule 125 mg PO BEDTIME 05/26/20 07/11/22 Unknown History txjtorbo-tfz-xphvv ac 400 1 tab PO DAILY 05/26/20 07/11/22 Unknown History mcg-calcium carb 500 mg-vit K1 20 mcg tablet (Women's 50 Plus Multivitamin) metformin 500 mg tablet 500 mg PO BID 06/16/22 07/11/22 07/11/22 History cholecalciferol (vitamin D3) 10 10 mcg PO DAILY 07/11/22 07/11/22 Unknown History mcg (400 unit) tablet (Vitamin D3) Physical Exam Vital Signs and Narrative: Vital Signs: Last Vital Signs Temp 98.1 F 07/11/22 20:07 Pulse 94 07/11/22 21:12 Resp 19 07/11/22 21:12 BP 134/77 07/11/22 21:12 Pulse Ox 95 07/11/22 21:12 O2 Del Method 07/11/22 21:12 O2 Flow Rate 2 07/11/22 20:07 BMI result Body Mass Index 16.2 Const: General: cooperative and no acute distress Orientation/consciousness: patient oriented x3 Eyes: General: appearance normal, both eyes and all related structures Resp: Other: crackles bilaterally Effort & Inspection: normal respiratory effort Cardio: Rate: regular rate Rhythm: regular rhythm GI: Palpation (GI): Soft to palpation Auscultation: normal bowel sounds Skin: General skin exam: no rashes or lesions noted Neuro: General: patient oriented x3 Cognition (Neuro): normal cognition Extrem: General: Yes normal to inspection and Yes no pedal edema Results Labs 07/11/22 18:45 07/11/22 18:45 Labs: Laboratory Results - last 24 hr 07/11/22 07/11/22 07/11/22 18:45 18:45 18:45 MCV 89.4 MCH 29.4 MCHC 32.8 RDW 14.4 Plt Count 379 MPV 9.7 Immature Gran % (Auto) 1.5 H Neut % (Auto) 86.8 H Lymph % (Auto) 5.9 L Curry % (Auto) 5.5 Eos % (Auto) 0.2 Baso % (Auto) 0.1 Lymph # (Auto) 1.0 L Curry # (Auto) 0.9 Eos # (Auto) 0.0 Baso # (Auto) 0.0 Abs Immat Gran (auto) 0.25 H Absolute Neuts (auto) 15.0 H Absolute Nucleated RBC 0.000 Nucleated RBC % (auto) 0.0 PT INR APTT Anion Gap 15 Estim Creat Clear Calc 41.4 Estimated GFR > 60 POC Glucose Random Glucose 480 H* Lactic Acid Calcium 9.4 Total Bilirubin 0.4 AST 14 ALT 19 Alkaline Phosphatase 104 Troponin I High Sens < 3.5 B-Natriuretic Peptide Total Protein 6.6 Albumin 3.1 L Acetone, Qual Negative Influenza Type A (PCR) Influenza Type B (PCR) RSV RNA Qual (PCR) SARS-CoV-2 RNA (RT-PCR) 07/11/22 07/11/22 07/11/22 18:45 18:45 18:45 MCV MCH MCHC RDW Plt Count MPV Immature Gran % (Auto) Neut % (Auto) Lymph % (Auto) Curry % (Auto) Eos % (Auto) Baso % (Auto) Lymph # (Auto) Curry # (Auto) Eos # (Auto) Baso # (Auto) Abs Immat Gran (auto) Absolute Neuts (auto) Absolute Nucleated RBC Nucleated RBC % (auto) PT 13.5 H INR 1.2 H APTT 30.6 Anion Gap Estim Creat Clear Calc Estimated GFR POC Glucose Random Glucose Lactic Acid Calcium Total Bilirubin AST ALT Alkaline Phosphatase Troponin I High Sens B-Natriuretic Peptide 138 H Total Protein Albumin Acetone, Qual Influenza Type A (PCR) NEGATIVE Influenza Type B (PCR) NEGATIVE RSV RNA Qual (PCR) NEGATIVE SARS-CoV-2 RNA (RT-PCR) NEGATIVE 07/11/22 07/11/22 19:31 21:14 MCV MCH MCHC RDW Plt Count MPV Immature Gran % (Auto) Neut % (Auto) Lymph % (Auto) Curry % (Auto) Eos % (Auto) Baso % (Auto) Lymph # (Auto) Curry # (Auto) Eos # (Auto) Baso # (Auto) Abs Immat Gran (auto) Absolute Neuts (auto) Absolute Nucleated RBC Nucleated RBC % (auto) PT INR APTT Anion Gap Estim Creat Clear Calc Estimated GFR POC Glucose 316 H Random Glucose Lactic Acid 1.6 Calcium Total Bilirubin AST ALT Alkaline Phosphatase Troponin I High Sens B-Natriuretic Peptide Total Protein Albumin Acetone, Qual Influenza Type A (PCR) Influenza Type B (PCR) RSV RNA Qual (PCR) SARS-CoV-2 RNA (RT-PCR) Imaging Radiologist's Impressions: Impressions Chest X-Ray 07/11/22 19:40 IMPRESSION: 1. Small bilateral pleural effusions and bibasilar opacities, right greater than left, which may represent atelectasis, sequela of aspiration, or pneumonia. 2. Mild bilateral bronchial wall thickening. Assessment and Plan (1) Community acquired pneumonia: Status: Acute (2) Acute hyperglycemia: Status: Acute Plan 76-year-old female with past medical history of diabetes presents to the hospital with complaints of not feeling well including shortness of breath, cough and sputum production found to have pneumonia # sepsis - patient meets sepsis criteria with leukocytosis as well as tachycardia - pneumonia as a source - follow cultures - IV antibiotics # acute hypoxic respiratory failure - likely secondary to pneumonia - CHF less likely, with no history of CHF, patient has no orthopnea or PND, no lower extremity edema - BNP inconclusive # acute community-acquired pneumonia - has leukocytosis, tachycardia, afebrile, - will treat with IV antibiotics - follow cultures # hyperglycemia - patient on metformin only - comes in with glucose of 400s - not in HHS or DKA - will obtain hemoglobin A1c - will place on insulin low-dose sliding scale DVT prophylaxis: Lovenox given need for IV antibiotics patient require minimal tonight inpatient hospital stay for further management monitor Time Spent With Patient Time: Total time managing care of this patient today ____ minutes. Quality Stroke Does the patient have a stroke diagnosis?: No VTE Prior VTE?: No VTE Risk Level:: Medical - moderate - high VTE Device Contraindication: Treatment Not Indicated VTE Drug Contraindication: N/A - Med Ordered
[2022-07-12] VITALS (8 sets, daily range): BP systolic 108–126; BP diastolic 54–63; PULSE 70–94; RESP 20–22; TEMP 36.6–37.1; O2SAT 91–100
[2022-07-12] MEDS: Enoxaparin Sodium 40 MG/0.4 ML SYRINGE SUBCUT ×2 (00:37→21:36)
[2022-07-12] MEDS: Lactated Ringers 1,000 ML 100 ML IVCONT ×3 (00:37→21:40)
[2022-07-12 06:12] LABS: Glucose, Whole Blood 318 mg/dL (60-115)
[2022-07-12 06:19] LABS: MANUAL DIFF FLAG NO
[2022-07-12 06:23] LABS: Basophils Percent Auto 0.1 % (0-2); Hematocrit 37.4 % (37.0-47.0); Imm Gran Abs Auto 0.06 X10*3/uL (0.00-0.03); Imm Gran Pct Auto 0.5 % (0.0-0.4); Lymphocytes Absolute Auto 0.6 X10*3/uL (1.2-4.9); Lymphocytes Percent Auto 4.9 % (20-40); Mean Corpuscular HGB Conc 32.1 g/dl (31.0-35.0); Mean Corpuscular Hemoglobin 28.6 pg (27.0-33.0); Mean Platelet Volume 9.3 fL (9.4-12.3); Monocytes Absolute Auto 0.1 X10*3/uL (0.1-1.2); Monocytes Percent Auto 0.5 % (2-11); Neutrophils Absolute Auto 11.8 x10*3/uL (2.0-8.3); Platelet Count 301 X10*3/uL (160-400); Red Cell Distribution Width 14.3 % (11.0-16.0); SCAN SMEAR FLAG 1; White Blood Count 12.5 X10*3/uL (4.8-10.8)
[2022-07-12 06:39] LABS: Anion Gap 19 (12-20); Blood Urea Nitrogen 16 mg/dL (9-16); Calcium 8.6 mg/dL (8.4-10.2); Carbon Dioxide 25 mmol/L (22-29); Chloride 102 mmol/L (96-108); Creatinine Clr Calc Pharmacy 53.2; Estimated Glomerular Filt Rate > 60; Glucose Random 341 mg/dL (60-115); Potassium 4.6 mmol/L (3.3-5.1); Sodium 141 mmol/L (135-145)
[2022-07-12] MEDS: Insulin Lispro 100 UNIT/ML 3 ML VIAL SUBCUT ×2 (07:16→13:46)
--- NOTE | 2022-07-12 08:27 | PC.NURSE ---
New LR bag started at 100ml/hr. Pt alert/oriented. Assisted to bedside commode. Requested and given ice chips. No SOB noted on rest or with transfer to commode. Skin midly pale, warm and dry
--- NOTE | 2022-07-12 09:21 | PC.NURSE ---
patient a&ox3, vss, ivf running per order, pt has bilateral lower lobe fine crackles, nurse monitoring intact nsr 80s, call roland within reach, fall precautions intact, will continue to monitor
--- NOTE | 2022-07-12 10:00 | PC.NURSE ---
Dr. Vasques came to speak with patient about new medications, pt refusing to take glipizide Dr. Vasques said to hold the medication- he will discontinue and will also increase the metformin. He does wish for the patient to have metformin and sliding scale.
[2022-07-12] MEDS: metFORMIN HCl 500 MG TABLET PO (11:08)
[2022-07-12] MEDS: Ascorbic Acid 500 MG TABLET PO (11:09)
[2022-07-12] MEDS: Cholecalciferol (Vitamin D3) 10 MCG TABLET PO (11:09)
[2022-07-12] MEDS: Multivitamin TABLET 1 TAB PO (11:09)
--- NOTE | 2022-07-12 11:18 | PC.NURSE ---
pt AOx3, patient medicated with metformin per order. LR running per order. Will continue to monitor.
[2022-07-12 12:58] LABS: Glucose, Whole Blood 286 mg/dL (60-115)
--- NOTE | 2022-07-12 14:42 | MHC.SL.SWA ---
Speech Pathologist Impression: Risk of Aspiration Due to: History of Pneumonia Dysphasia Diet Status: Liquid Consistency and Strategies for Safe Swallow: Liquid Intake Recommendation: Thin Liquid Intake Strategies: Unrestricted Solid Food Consistency: Dietary Recommendations: Regular Additional Modifications to Solid Foods: Oral Medication Intake: Whole with Liquid Please contact the pharmacy regarding appropriate crushable or liquid drug formulations that are available whenever modified delivery is recommended. Compensatory Strategies and Precautions to be Taken for Safe Swallow: Supervision While Eating and Drinking for Safe Swallow: None Needed Foods to Avoid: Swallowing Recommended Treatments: Recommendation for Speech: NA:Typical Evaluation Comment: Patient presents with all aspects of swallow WFL. Continue on regular diet, thin liquids, pills whole with liquid, all unrestricted. Patient is able to independently feed self. No additional services needed, will discharge from speech. MICHELLE VALENTINO notified by secure text. Frequency/Duration: Date Range for Service Req: Timeline to reassess: Air Sealing Technician Clinican/Clinical Fellow: No Supervisory Statement: I have reviewed and agree with the student/clinical fellow's documentation: N/A Speech Language Pathologist: Anna Ladd M.A., CCC-ONLINE MARKETING MANAGER
--- NOTE | 2022-07-12 16:43 | PC.NURSE ---
Addendum entered by Robby Edwards RN 07/12/22 18:10: Pt got a bed, 371; pt aware. Report given to RN receiving the pt. Safety maintained throughout. Pt left the [facility] in the bed at 1820. Original Note: Pt arrived to [facility] at approximately 1600 from ED in a stretcher. Pt settled in bed and is AAOX4. Pt denied any pain. LR infusing at 100mls/hr as ordered. Pt on 2L n/c and satting in the mid 90s. Will continue to monitor.
[2022-07-12 18:41] LABS: Glucose, Whole Blood 55 mg/dL (60-115)
--- NOTE | 2022-07-12 18:42 | P.PNIM_ITS ---
Subjective Subjective Date of Service: 07/12/22 Interval History: Sepsis, acute hypoxic respiratory failure, pneumonia. Review of Systems Shortness of breath seems to be improving still has cough with some sputum. No fevers Fingersticks are fluctuating in 300 range Physical Exam Vital Signs: Vital Signs: Last Vital Signs Temp 98.6 F 07/12/22 18:38 Pulse 94 07/12/22 18:38 Resp 20 07/12/22 14:33 BP 126/58 L 07/12/22 18:38 Pulse Ox 91 L 07/12/22 18:38 O2 Del Method 07/12/22 18:38 O2 Flow Rate 2 07/12/22 18:38 BMI result Body Mass Index 16.2 Appearance: Alert.? Oriented X3.?sob cvs: rrr, [id number] , no murmur res: air entry seems diminshed at bases ,few scattered dry cracles. abd: no rebound or guarding ,nt, bs present. ext pulses present , no cyanosis. neuro: axo3 , nonfocal. Objective Data Active Medications Acetaminophen (Acetaminophen 325 Mg Tablet) 650 mg PO Q6H PRN PRN Reason: Pain, Mild (Pain Scale 1-3) Ascorbic Acid (Ascorbic Acid 500 Mg Tablet) 500 mg PO DAILY [facility] Last Admin: 07/12/22 11:09 Dose: 500 mg Documented By: JUANITO Dextrose (Dextrose 50 % 25 Gm/50 Ml Vial) 25 gm IVPUSH Q15M PRN; Protocol PRN Reason: per Hypoglycemia Standing Ord. Docusate Sodium (Docusate Sodium 100 Mg Capsule) 100 mg PO DAILY PRN PRN Reason: Constipation Enoxaparin Sodium (Enoxaparin Sodium 40 Mg/0.4 Ml Syringe) 40 mg SUBCUT Q24H [facility] Last Admin: 07/12/22 00:37 Dose: 40 mg Documented By: PAYAL Glucose (Glucose Gel 15 Gm Gel..Gram.) 15 gm PO Q15M PRN; Protocol PRN Reason: per Hypoglycemia Standing Ord. Ceftriaxone Sodium 1 gm/ (Sodium Chloride) 50 mls @ 100 mls/hr IV Q24H [facility] Azithromycin 500 mg/ Sodium (Chloride) 250 mls @ 125 mls/hr IV Q24H [facility] Lactated Ringer's (Lr) 1,000 mls @ 100 mls/hr IVCONT .Q10H [facility] Last Admin: 07/12/22 08:27 Dose: 100 mls/hr Documented By: JEFF Insulin Human Lispro (Insulin Lispro 100 Unit/Ml 3 Ml Vial) 0 unit SUBCUT QIDACHS [facility]; Protocol Last Admin: 07/12/22 18:40 Dose: Not Given Documented By: CAYDEN Non-Admin Reason: No Insulin Coverage Metformin HCl (Metformin Hcl 500 Mg Tablet) 500 mg PO BID [facility] Last Admin: 07/12/22 11:08 Dose: 500 mg Documented By: JUANITO Multivitamins/Vitamin C (Multivitamin Tablet) 1 tab PO DAILY [facility] Last Admin: 07/12/22 11:09 Dose: 1 tab Documented By: JUANITO Ondansetron HCl (Ondansetron Hcl 4 Mg/2 Ml Vial) 4 mg IVPUSH Q8H PRN PRN Reason: Nausea and Vomiting Sodium Chloride (0.9 % Sodium Chloride Flush 3 Ml Syringe) 3 ml IVFLUSH QSHIFT [facility] Last Admin: 07/12/22 15:00 Dose: Not Given Documented By: CALISTA Non-Admin Reason: IV Running Vitamin D (Cholecalciferol (Vitamin D3) 10 Mcg Tablet) 10 mcg PO DAILY [facility] Last Admin: 07/12/22 11:09 Dose: 10 mcg Documented By: JUANITO Labs 07/12/22 06:14 07/12/22 06:14 Labs: Laboratory Results - last 24 hr 07/11/22 07/11/22 07/11/22 18:45 18:45 18:45 MCV 89.4 MCH 29.4 MCHC 32.8 RDW 14.4 Plt Count 379 MPV 9.7 Immature Gran % (Auto) 1.5 H Neut % (Auto) 86.8 H Lymph % (Auto) 5.9 L Creek % (Auto) 5.5 Eos % (Auto) 0.2 Baso % (Auto) 0.1 Lymph # (Auto) 1.0 L Creek # (Auto) 0.9 Eos # (Auto) 0.0 Baso # (Auto) 0.0 Abs Immat Gran (auto) 0.25 H Absolute Neuts (auto) 15.0 H Absolute Nucleated RBC 0.000 Nucleated RBC % (auto) 0.0 PT INR APTT Anion Gap 15 Estim Creat Clear Calc 41.4 Estimated GFR > 60 POC Glucose Random Glucose 480 H* Lactic Acid Calcium 9.4 Total Bilirubin 0.4 AST 14 ALT 19 Alkaline Phosphatase 104 Troponin I High Sens < 3.5 B-Natriuretic Peptide Total Protein 6.6 Albumin 3.1 L Acetone, Qual Negative Influenza Type A (PCR) Influenza Type B (PCR) RSV RNA Qual (PCR) SARS-CoV-2 RNA (RT-PCR) 07/11/22 07/11/22 07/11/22 18:45 18:45 18:45 MCV MCH MCHC RDW Plt Count MPV Immature Gran % (Auto) Neut % (Auto) Lymph % (Auto) Creek % (Auto) Eos % (Auto) Baso % (Auto) Lymph # (Auto) Creek # (Auto) Eos # (Auto) Baso # (Auto) Abs Immat Gran (auto) Absolute Neuts (auto) Absolute Nucleated RBC Nucleated RBC % (auto) PT 13.5 H INR 1.2 H APTT 30.6 Anion Gap Estim Creat Clear Calc Estimated GFR POC Glucose Random Glucose Lactic Acid Calcium Total Bilirubin AST ALT Alkaline Phosphatase Troponin I High Sens B-Natriuretic Peptide 138 H Total Protein Albumin Acetone, Qual Influenza Type A (PCR) NEGATIVE Influenza Type B (PCR) NEGATIVE RSV RNA Qual (PCR) NEGATIVE SARS-CoV-2 RNA (RT-PCR) NEGATIVE 07/11/22 07/11/22 07/12/22 19:31 21:14 06:07 MCV MCH MCHC RDW Plt Count MPV Immature Gran % (Auto) Neut % (Auto) Lymph % (Auto) Creek % (Auto) Eos % (Auto) Baso % (Auto) Lymph # (Auto) Creek # (Auto) Eos # (Auto) Baso # (Auto) Abs Immat Gran (auto) Absolute Neuts (auto) Absolute Nucleated RBC Nucleated RBC % (auto) PT INR APTT Anion Gap Estim Creat Clear Calc Estimated GFR POC Glucose 316 H 318 H Random Glucose Lactic Acid 1.6 Calcium Total Bilirubin AST ALT Alkaline Phosphatase Troponin I High Sens B-Natriuretic Peptide Total Protein Albumin Acetone, Qual Influenza Type A (PCR) Influenza Type B (PCR) RSV RNA Qual (PCR) SARS-CoV-2 RNA (RT-PCR) 07/12/22 07/12/22 07/12/22 06:14 06:14 12:32 MCV 89.0 MCH 28.6 MCHC 32.1 RDW 14.3 Plt Count 301 MPV 9.3 L Immature Gran % (Auto) 0.5 H Neut % (Auto) 94.0 H Lymph % (Auto) 4.9 L Creek % (Auto) 0.5 L Eos % (Auto) 0.0 Baso % (Auto) 0.1 Lymph # (Auto) 0.6 L Creek # (Auto) 0.1 Eos # (Auto) 0.0 Baso # (Auto) 0.0 Abs Immat Gran (auto) 0.06 H Absolute Neuts (auto) 11.8 H Absolute Nucleated RBC 0.000 Nucleated RBC % (auto) 0.0 PT INR APTT Anion Gap 19 Estim Creat Clear Calc 53.2 Estimated GFR > 60 POC Glucose 286 H Random Glucose 341 H Lactic Acid Calcium 8.6 D Total Bilirubin AST ALT Alkaline Phosphatase Troponin I High Sens B-Natriuretic Peptide Total Protein Albumin Acetone, Qual Influenza Type A (PCR) Influenza Type B (PCR) RSV RNA Qual (PCR) SARS-CoV-2 RNA (RT-PCR) 07/12/22 18:36 MCV MCH MCHC RDW Plt Count MPV Immature Gran % (Auto) Neut % (Auto) Lymph % (Auto) Creek % (Auto) Eos % (Auto) Baso % (Auto) Lymph # (Auto) Creek # (Auto) Eos # (Auto) Baso # (Auto) Abs Immat Gran (auto) Absolute Neuts (auto) Absolute Nucleated RBC Nucleated RBC % (auto) PT INR APTT Anion Gap Estim Creat Clear Calc Estimated GFR POC Glucose 55 L* Random Glucose Lactic Acid Calcium Total Bilirubin AST ALT Alkaline Phosphatase Troponin I High Sens B-Natriuretic Peptide Total Protein Albumin Acetone, Qual Influenza Type A (PCR) Influenza Type B (PCR) RSV RNA Qual (PCR) SARS-CoV-2 RNA (RT-PCR) Assessment and Plan (1) Community acquired pneumonia: Status: Acute (2) Acute hyperglycemia: Status: Acute (3) Acute hypoxemic respiratory failure: Status: Acute (4) Sepsis: Status: Acute (5) Malnutrition of mild degree: Status: Acute Plan 76-year-old female with past medical history of diabetes presents to the hospit al with complaints of not feeling well including shortness of breath, cough and sputum production found to have pneumonia #? sepsis -? patient meets sepsis criteria with leukocytosis as well as tachycardia- somewhat improving,blood cultures pending -? pneumonia as a source -? follow cultures -? IV antibiotics #? acute hypoxic respiratory failure -? likely secondary to pneumonia -? CHF less likely, with no history of CHF, patient has no orthopnea or PND, no lower extremity edema -? BNP inconclusive #? acute community-acquired pneumonia -? has leukocytosis, tachycardia, afebrile, -? will treat with IV antibiotics -? follow cultures #? dm with hyperglycemia -? patient on metformin only fs improving in 200-300. -? not in HHS or DKA hemoglobin A1c: 10.4 continue metformin and insulin low-dose sliding scale. possible mild protein calorie malnutrition : bmi's in 16 will add bar welder consult ?DVT prophylaxis:? Lovenox inaptient need :sepsis /acute hypoxemic respiratory failure : iv antibiotics ,taper oxygen , uncontrolled dm -needs fs monitoring and renal function and electrolyte monitoring. Time Spent With Patient Time: Total time managing care of this patient today ____ minutes. Quality Stroke Does the patient have a stroke diagnosis?: No VTE Prior VTE?: No VTE Risk Level:: Medical - moderate - high VTE Device Contraindication: Treatment Not Indicated VTE Drug Contraindication: N/A - Med Ordered
[2022-07-12 19:35] LABS: Glucose, Whole Blood 95 mg/dL (60-115)
--- NOTE | 2022-07-12 21:00 | PC.NURSE ---
Patients repeat blood glucose went up to 95. MD notified and said to hold metformin.
[2022-07-12] MEDS: Azithromycin 500 MG in 0.9 % Sodium Chloride 250 ML 125 MG IV (21:34)
[2022-07-13] VITALS (13 sets, daily range): BP systolic 111–140; BP diastolic 57–76; PULSE 74–91; RESP 18–20; TEMP 36.4–37.7; O2SAT 91–98; BMI 16.2
[2022-07-13] MEDS: cefTRIAXone sodium 1 GM in 0.9 % Sodium Chloride 50 ML IV ×2 (00:04→20:53)
[2022-07-13] MEDS: Lactated Ringers 1,000 ML 100 ML IVCONT (05:54)
[2022-07-13 07:34] LABS: Glucose, Whole Blood 136 mg/dL (60-115)
[2022-07-13] MEDS: Multivitamin TABLET 1 TAB PO (07:50)
[2022-07-13] MEDS: Cholecalciferol (Vitamin D3) 10 MCG TABLET PO (07:50)
[2022-07-13] MEDS: metFORMIN HCl 500 MG TABLET PO ×2 (07:50→20:53)
[2022-07-13] MEDS: Ascorbic Acid 500 MG TABLET PO (07:50)
[2022-07-13] MEDS: 0.9 % Sodium Chloride Flush 3 ML SYRINGE IVFLUSH ×3 (07:51→20:56)
--- NOTE | 2022-07-13 09:32 | MHC.CM.PN ---
CM met with Patient at bedside and addressed IMM with her, providing her with the original and placing a copy on the chart.Patient lives in a house with her /HCP and home/self care is the goal.CM has initiated and will follow for dc planning. Patient has received no covid vax and her PCP is Dr. Teague.
--- NOTE | 2022-07-13 10:37 | MHC.CLN ---
NUTRITION CONSULT FOR MALNUTRITION. DIET=DIABETIC 1800 KCALS. ADDING GLUCERNA TID TO PROVIDE ADDITIONAL 870 KCALS, 35 G PROTEIN. TAKES GLUCERNA AT HOME. ENCOURAGE PATIENT TO TAKE TID. POOR APPETITE WITH DECREASED INTAKE X 2 WEEKS DUE TO ACUTE ILLNESS. SIGNIFICANT WEIGHT LOSS X 30 DAYS COMPARING REPORTED RUD=[id number]#. NUTRITION DX MODERATE (NON SEVERE) MALNUTRITION IN THE CONTEXT OF ACUTE ILLNESS. ATE 100% THIS BREAKFAST AND REPORTS IMPROVING APPETITE. FOLLOW FOR INTAKE AND WEIGHT. SEE CLINICAL ASSESSMENT 07/13/22.
[2022-07-13 11:13] LABS: Glucose, Whole Blood 234 mg/dL (60-115)
[2022-07-13] MEDS: Insulin Lispro 100 UNIT/ML 3 ML VIAL SUBCUT ×3 (11:59→20:53)
--- NOTE | 2022-07-13 14:00 | P.PNIM_ITS ---
Subjective Subjective Date of Service: 07/13/22 Interval History: Sepsis, acute hypoxic respiratory failure, pneumonia. Review of Systems Shortness of breath seems to be improving still has cough with some sputum.? No fevers Fingersticks are fluctuating in 300 range Physical Exam Vital Signs: Vital Signs: Last Vital Signs Temp 99.9 F 07/13/22 11:55 Pulse 81 07/13/22 11:55 Resp 19 07/13/22 11:55 BP 123/70 07/13/22 11:55 Pulse Ox 93 07/13/22 11:55 O2 Del Method 07/13/22 11:55 O2 Flow Rate 2.5 07/13/22 11:55 BMI result Body Mass Index 16.2 ?Appearance: Alert.? Oriented X3.?sob cvs: rrr, [id number] , no murmur res: air entry seems diminshed at bases ,few scattered dry cracles. abd: no rebound or guarding ,nt, bs present. ext pulses present , no cyanosis. neuro: axo3 , nonfocal. Objective Data Active Medications Acetaminophen (Acetaminophen 325 Mg Tablet) 650 mg PO Q6H PRN PRN Reason: Pain, Mild (Pain Scale 1-3) Ascorbic Acid (Ascorbic Acid 500 Mg Tablet) 500 mg PO DAILY [facility] Last Admin: 07/13/22 07:50 Dose: 500 mg Documented By: AGATA Dextrose (Dextrose 50 % 25 Gm/50 Ml Vial) 25 gm IVPUSH Q15M PRN; Protocol PRN Reason: per Hypoglycemia Standing Ord. Dextrose (Dextrose 50 % 25 Gm/50 Ml Syringe) 25 gm IVPUSH Q15M PRN PRN Reason: per Hypoglycemia Standing Ord. Docusate Sodium (Docusate Sodium 100 Mg Capsule) 100 mg PO DAILY PRN PRN Reason: Constipation Enoxaparin Sodium (Enoxaparin Sodium 40 Mg/0.4 Ml Syringe) 40 mg SUBCUT Q24H [facility] Last Admin: 07/12/22 21:36 Dose: 40 mg Documented By: HU Glucose (Glucose Gel 15 Gm Gel..Gram.) 15 gm PO Q15M PRN; Protocol PRN Reason: per Hypoglycemia Standing Ord. Ceftriaxone Sodium 1 gm/ (Sodium Chloride) 50 mls @ 100 mls/hr IV Q24H [facility] Last Infusion: 07/13/22 01:15 Dose: 0 mls/hr Documented By: HU Azithromycin 500 mg/ Sodium (Chloride) 250 mls @ 125 mls/hr IV Q24H [facility] Last Infusion: 07/13/22 00:04 Dose: 0 mls/hr Documented By: HU Insulin Human Lispro (Insulin Lispro 100 Unit/Ml 3 Ml Vial) 0 unit SUBCUT QIDACHS [facility]; Protocol Last Admin: 07/13/22 11:59 Dose: 4 unit Documented By: AGATA Metformin HCl (Metformin Hcl 500 Mg Tablet) 500 mg PO BID [facility] Last Admin: 07/13/22 07:50 Dose: 500 mg Documented By: AGATA Multivitamins/Vitamin C (Multivitamin Tablet) 1 tab PO DAILY [facility] Last Admin: 07/13/22 07:50 Dose: 1 tab Documented By: AGATA Ondansetron HCl (Ondansetron Hcl 4 Mg/2 Ml Vial) 4 mg IVPUSH Q8H PRN PRN Reason: Nausea and Vomiting Sodium Chloride (0.9 % Sodium Chloride Flush 3 Ml Syringe) 3 ml IVFLUSH QSHIFT [facility] Last Admin: 07/13/22 07:51 Dose: 3 ml Documented By: AGATA Vitamin D (Cholecalciferol (Vitamin D3) 10 Mcg Tablet) 10 mcg PO DAILY [facility] Last Admin: 07/13/22 07:50 Dose: 10 mcg Documented By: AGATA Labs 07/12/22 06:14 07/12/22 06:14 Labs: Laboratory Results - last 24 hr 07/12/22 07/12/22 07/13/22 18:36 19:01 07:22 POC Glucose 55 L* 95 136 H 07/13/22 11:05 POC Glucose 234 H Microbiology Microbiology Results: Microbiology 07/11/22 19:31 Blood Culture - Preliminary Blood - Venous No growth after 24 hours. 07/11/22 19:31 Blood Culture - Preliminary Blood - Venous No growth after 24 hours. Assessment and Plan (1) Community acquired pneumonia: Status: Acute (2) Acute hyperglycemia: Status: Acute (3) Acute hypoxemic respiratory failure: Status: Acute (4) Sepsis: Status: Acute (5) Malnutrition of mild degree: Status: Acute Plan 76-year-old female with past medical history of diabetes presents to the hospital with complaints of not feeling well including shortness of breath, cough and sputum production found to have pneumonia #? sepsis -? patient meets sepsis criteria with leukocytosis as well as tachycardia- somewhat improving,blood cultures pending -? pneumonia as a source -? follow cultures -? IV antibiotics #? acute hypoxic respiratory failure -? likely secondary to pneumonia -? CHF less likely, with no history of CHF, patient has no orthopnea or PND, no lower extremity edema -? BNP inconclusive #? acute community-acquired pneumonia -? has leukocytosis, tachycardia, afebrile, -? will treat with IV antibiotics -? follow cultures #? dm with hyperglycemia -? patient on metformin only fs improving in 200-300. -? not in HHS or DKA hemoglobin A1c: 10.4 continue metformin and insulin low-dose sliding scale. moderate protein calorie malnutrition : bmi's in 16 will add heel emery buffer consult ?DVT prophylaxis:? Lovenox inaptient need :sepsis /acute hypoxemic respiratory failure : iv antibiotics ,taper oxygen , uncontrolled dm -needs fs monitoring and renal function and electrolyte monitoring. Time Spent With Patient Time: Total time managing care of this patient today ____ minutes. Quality Stroke Does the patient have a stroke diagnosis?: No VTE Prior VTE?: No VTE Risk Level:: Medical - moderate - high VTE Device Contraindication: Treatment Not Indicated VTE Drug Contraindication: N/A - Med Ordered
[2022-07-13 16:01] LABS: Glucose, Whole Blood 188 mg/dL (60-115)
[2022-07-13 19:46] LABS: Glucose, Whole Blood 190 mg/dL (60-115)
[2022-07-13] MEDS: Azithromycin 500 MG in 0.9 % Sodium Chloride 250 ML 125 MG IV (21:33)
[2022-07-13] MEDS: Enoxaparin Sodium 40 MG/0.4 ML SYRINGE SUBCUT (22:57)
--- NOTE | 2022-07-14 | ECG_ITS ---
Test Reason : cp Blood Pressure : / mmHG Vent. Rate : 085 BPM Atrial Rate : 085 BPM P-R Int : 130 ms QRS Dur : 070 ms QT Int : 360 ms P-R-T Axes : 085 038 052 degrees QTc Int : 428 ms Normal sinus rhythm Low voltage QRS Borderline ECG When compared with ECG of 11-JUL-2022 18:49, No significant change was found Referred By: Ricardo Ricks Electronically Signed By:SANJAY HARVEY MD
[2022-07-14 01:35] VITALS: BP 132/62; PULSE 84; RESP 18; TEMP 36.3; O2SAT 96
[2022-07-14 03:39] VITALS: BP 129/63; PULSE 82; RESP 18; TEMP 36.7; O2SAT 97
[2022-07-14 07:31] LABS: Glucose, Whole Blood 88 mg/dL (60-115)
[2022-07-14 07:35] VITALS: BP 117/66; PULSE 80; RESP 18; TEMP 37.1; O2SAT 95
--- NOTE | 2022-07-14 08:05 | MHC.CDI.CONC ---
CDI Concurrent Query Documentation Clarification: PHYSICIAN'S DOCUMENTATION REQUEST Date of Query: 07/14/22 0805 Patient Name: Anu Stephens Admit Date: 07/11/22 Dear Doctor, A review of the medical record indicates additional documentation may be needed. Please review below and update the documentation accordingly. Clinical Indicators: Risk Factors/Clinical Indicators/Treatments PN: 07/13 - Diabetes mellitus Type 2 POC glucose 07/12 - 55L Please clarify the following regarding Diabetes Mellitus (DM): Hypoglycemia No complications of DM Other complication ? please specify Unable to determine Use of terms such as suspected, likely, concern for, or probable (associated with a specific diagnosis that is being evaluated, monitored, or treated as if it exists) are acceptable and can be coded in the inpatient setting, when documented at the time of discharge. Thank you, Kacey Jordan [facility], CDIS Extension: [phone] Please use your independent medical judgment in providing your response. THIS QUERY IS PART OF THE PERMANENT MEDICAL RECORD Provider Response: Other Other Diagnosis: dm with episode of hypoglycemia (asymptomtaic)
[2022-07-14] MEDS: Ascorbic Acid 500 MG TABLET PO (08:09)
[2022-07-14] MEDS: Multivitamin TABLET 1 TAB PO (08:09)
[2022-07-14] MEDS: metFORMIN HCl 500 MG TABLET PO ×2 (08:10→20:18)
[2022-07-14] MEDS: Cholecalciferol (Vitamin D3) 10 MCG TABLET PO (08:10)
[2022-07-14] MEDS: 0.9 % Sodium Chloride Flush 3 ML SYRINGE IVFLUSH ×3 (08:15→23:34)
[2022-07-14 11:06] VITALS: BP 117/66; PULSE 80; O2SAT 95
[2022-07-14 11:20] LABS: Glucose, Whole Blood 185 mg/dL (60-115)
[2022-07-14] MEDS: Insulin Lispro 100 UNIT/ML 3 ML VIAL SUBCUT ×3 (12:00→21:28)
--- NOTE | 2022-07-14 13:15 | HO.PM.IMPN ---
Subjective Subjective Date of Service: 07/14/22 Interval History: Sepsis, acute hypoxic respiratory failure, pneumonia. Review of Systems Shortness of breath seems to be improving still has cough with some sputum.? No fevers Fingersticks are fluctuating 100-190 Physical Exam Vital Signs: Vital Signs: Last Vital Signs Temp 98.8 F 07/14/22 07:35 Pulse 80 07/14/22 11:06 Resp 18 07/14/22 07:35 BP 117/66 07/14/22 11:06 Pulse Ox 95 07/14/22 11:06 O2 Del Method 07/14/22 07:35 O2 Flow Rate 2.5 07/14/22 07:35 BMI result Body Mass Index 16.2 Appearance: Alert.? Oriented X3.?sob cvs: rrr, [id number] , no murmur res: air entry seems diminshed at bases ,few scattered dry cracles. abd: no rebound or guarding ,nt, bs present. ext pulses present , no cyanosis. neuro: axo3 , nonfocal. Objective Data Active Medications Acetaminophen (Acetaminophen 325 Mg Tablet) 650 mg PO Q6H PRN PRN Reason: Pain, Mild (Pain Scale 1-3) Ascorbic Acid (Ascorbic Acid 500 Mg Tablet) 500 mg PO DAILY [facility] Last Admin: 07/14/22 08:09 Dose: 500 mg Documented By: INNA Dextrose (Dextrose 50 % 25 Gm/50 Ml Vial) 25 gm IVPUSH Q15M PRN; Protocol PRN Reason: per Hypoglycemia Standing Ord. Dextrose (Dextrose 50 % 25 Gm/50 Ml Syringe) 25 gm IVPUSH Q15M PRN PRN Reason: per Hypoglycemia Standing Ord. Docusate Sodium (Docusate Sodium 100 Mg Capsule) 100 mg PO DAILY PRN PRN Reason: Constipation Enoxaparin Sodium (Enoxaparin Sodium 40 Mg/0.4 Ml Syringe) 40 mg SUBCUT Q24H [facility] Last Admin: 07/13/22 22:57 Dose: 40 mg Documented By: TORSTEN Glucose (Glucose Gel 15 Gm Gel..Gram.) 15 gm PO Q15M PRN; Protocol PRN Reason: per Hypoglycemia Standing Ord. Ceftriaxone Sodium 1 gm/ (Sodium Chloride) 50 mls @ 100 mls/hr IV Q24H [facility] Last Infusion: 07/13/22 21:23 Dose: 0 mls/hr Documented By: TORSTEN Azithromycin 500 mg/ Sodium (Chloride) 250 mls @ 125 mls/hr IV Q24H [facility] Last Infusion: 07/13/22 23:33 Dose: 0 mls/hr Documented By: TORSTEN Insulin Human Lispro (Insulin Lispro 100 Unit/Ml 3 Ml Vial) 0 unit SUBCUT QIDACHS [facility]; Protocol Last Admin: 07/14/22 12:00 Dose: 2 unit Documented By: INNA Loperamide HCl (Loperamide Hcl 2 Mg Capsule) 2 mg PO Q4H PRN PRN Reason: diarrahae Metformin HCl (Metformin Hcl 500 Mg Tablet) 500 mg PO BID [facility] Last Admin: 07/14/22 08:10 Dose: 500 mg Documented By: INNA Multivitamins/Vitamin C (Multivitamin Tablet) 1 tab PO DAILY [facility] Last Admin: 07/14/22 08:09 Dose: 1 tab Documented By: INNA Omeprazole (Omeprazole 20 Mg Capsule.Dr) 20 mg PO BID@0630,1630 [facility] Ondansetron HCl (Ondansetron Hcl 4 Mg/2 Ml Vial) 4 mg IVPUSH Q8H PRN PRN Reason: Nausea and Vomiting Sodium Chloride (0.9 % Sodium Chloride Flush 3 Ml Syringe) 3 ml IVFLUSH QSHIFT [facility] Last Admin: 07/14/22 08:15 Dose: 3 ml Documented By: INNA Vitamin D (Cholecalciferol (Vitamin D3) 10 Mcg Tablet) 10 mcg PO DAILY [facility] Last Admin: 07/14/22 08:10 Dose: 10 mcg Documented By: INNA Labs 07/12/22 06:14 07/12/22 06:14 Labs: Laboratory Results - last 24 hr 07/13/22 07/13/22 07/14/22 15:34 19:37 07:24 POC Glucose 188 H 190 H 88 07/14/22 11:13 POC Glucose 185 H Microbiology Microbiology Results: Microbiology 07/11/22 19:31 Blood Culture - Preliminary Blood - Venous No growth after 48 hours. 07/11/22 19:31 Blood Culture - Preliminary Blood - Venous No growth after 48 hours. Assessment and Plan (1) Community acquired pneumonia: Status: Acute (2) Acute hyperglycemia: Status: Acute (3) Acute hypoxemic respiratory failure: Status: Acute (4) Malnutrition of mild degree: Status: Acute (5) Hypoglycemia: Status: Acute Plan Hospital day:3. 76-year-old female with past medical history of diabetes presents to the hospital with complaints of not feeling well including shortness of breath, cough and sputum production found to have pneumonia ? sepsis possible sec to , pneumonia as a source sepsis imporved ,blood cultures @48hrs continue IV antibiotics #? acute hypoxic respiratory failure-? likely secondary to pneumonia -? CHF less likely, with no history of CHF, patient has no orthopnea or PND, no lower extremity edema -? BNP inconclusive stilll sob with minimum excersion ,talking with sob. -? has leukocytosis,afebrile. -? will treat with IV antibiotics,slwoly taper oxygen. #? dm with hyperglycemia yesterday has 1 episode of hypoglycemia (asymptomatc) -likely due to poor oral intake. -? patient on metformin only fs improving in 100-190 hemoglobin A1c: 10.4 continue metformin and insulin low-dose sliding scale. moderate protein calorie malnutrition : bmi's in 16 will add industrial mechanic consult generlaised weak: added Pt eval. ?DVT prophylaxis:? Lovenox inaptient need :acute hypoxemic respiratory failure : iv antibiotics ,taper oxygen , uncontrolled dm -needs fs monitoring and renal function and electrolyte monitoring, Pt eval. Time Spent With Patient Time: Total time managing care of this patient today ____ minutes. Quality Stroke Does the patient have a stroke diagnosis?: No VTE Prior VTE?: No VTE Risk Level:: Medical - moderate - high VTE Device Contraindication: Treatment Not Indicated VTE Drug Contraindication: N/A - Med Ordered
[2022-07-14] MEDS: Loperamide HCl 2 MG CAPSULE PO (14:22)
[2022-07-14 16:00] VITALS: BP 120/61; PULSE 91; RESP 17; TEMP 36.8; O2SAT 93
[2022-07-14 16:52] LABS: Glucose, Whole Blood 325 mg/dL (60-115)
[2022-07-14] MEDS: cefTRIAXone sodium 1 GM in 0.9 % Sodium Chloride 50 ML IV (19:37)
[2022-07-14 20:00] VITALS: BP 104/61; BP 124/67; PULSE 84; PULSE 91; RESP 17; RESP 18; TEMP 36.4; TEMP 36.6; O2SAT 93; O2SAT 95
[2022-07-14] MEDS: Azithromycin 500 MG in 0.9 % Sodium Chloride 250 ML 125 MG IV (20:11)
[2022-07-14 20:58] LABS: Troponin-I High Sensitivity < 3.5 ng/L (<3.5-17.0)
[2022-07-14 21:12] LABS: Glucose, Whole Blood 202 mg/dL (60-115)
[2022-07-14] MEDS: Enoxaparin Sodium 40 MG/0.4 ML SYRINGE SUBCUT (23:04)
[2022-07-15 03:28] VITALS: BP 109/52; PULSE 81; RESP 14; TEMP 36.6; O2SAT 97
--- NOTE | 2022-07-15 04:37 | PC.NURSE ---
pt complained above the diaphragm feels pressure up to ears and pain, dr Ricks notified ordered ECG, troponin. hour later she said after burped up feels better and symptoms gone.
[2022-07-15] MEDS: Omeprazole 20 MG CAPSULE.DR PO (05:55)
[2022-07-15 07:29] LABS: Glucose, Whole Blood 74 mg/dL (60-115)
[2022-07-15 07:37] VITALS: BP 129/64; PULSE 90; RESP 16; TEMP 36.9; O2SAT 92
[2022-07-15 09:27] VITALS: BP 129/64; PULSE 90; O2SAT 92
[2022-07-15] MEDS: Ascorbic Acid 500 MG TABLET PO (09:36)
[2022-07-15] MEDS: Cholecalciferol (Vitamin D3) 10 MCG TABLET PO (09:36)
[2022-07-15] MEDS: Multivitamin TABLET 1 TAB PO (09:36)
[2022-07-15] MEDS: metFORMIN HCl 500 MG TABLET PO (09:36)
[2022-07-15] MEDS: 0.9 % Sodium Chloride Flush 3 ML SYRINGE IVFLUSH (09:36)
[2022-07-15 11:17] LABS: Glucose, Whole Blood 213 mg/dL (60-115)
[2022-07-15] MEDS: Insulin Lispro 100 UNIT/ML 3 ML VIAL SUBCUT (12:12)
--- NOTE | 2022-07-15 12:28 | MHC.CM.PN ---
EMR REVIEWED. PER MD ROUNDS, PT NOT MEDICALLY CLEARED FOR DC. (DECREASE IN 02 SAT WITH AMBULATION, SUPPLEMENTAL 02 USE) PER P.T. NOTE, MAY NEED HOME PT. REFERRAL PLACED TO [facility] . CM WILL CONTINUE TO FOLLOW FOR NEEDS.
[2022-07-15 14:01] VITALS: PULSE 102; PULSE 109; PULSE 89; O2SAT 82; O2SAT 84; O2SAT 90; O2SAT 92
--- NOTE | 2022-07-15 14:22 | MHC.CLN ---
F/U DIET=DIABETIC 1800 KCALS. GLUCERNA TID PROVIDES ADDITIONAL 710 KCALS, 30 G PROTEIN. TAKES GLUCERNA AT HOME. ENCOURAGE PATIENT TO TAKE TID. CURRENT INTAKE VARIABLE, 25-100%, WITH MOST MEALS 100%. FOLLOW FOR INTAKE AND WEIGHT.
--- NOTE | 2022-07-15 15:13 | PM.DS ---
DS: Providers Provider Date of Service: 07/15/22 Date of admission: 07/11/22 22:04 Date of discharge: 07/15/22 Primary care physician: Rosalinda Teague MD Attending physician on discharge: Vania Vasques DS: Diagnosis Discharge Diagnosis (1) Community acquired pneumonia: Status: Acute (2) Acute hyperglycemia: Status: Acute (3) Acute hypoxemic respiratory failure: Status: Acute (4) Malnutrition of mild degree: Status: Acute (5) Hypoglycemia: Status: Acute DS: Summary Hospital Course Hospital Course: 81-year-old female with past medical history of diabetes, and previous history of pneumonia presents to the hospital with complaints of not feeling well for the past 1 and half week.? Patient reports weakness, shortness of breath, coughing, phlegm, rhinorrhea, feeling feverish, chills, weakness in the legs, loss of appetite.? Patient reports no chest pain, no abdominal pain, no nausea or vomiting, no diarrhea constipation, no urinary symptoms and no lower extremity edema.? Denies any orthopnea or PND.? On arrival to the ED patient found to have a heart rate of 111, satting 86% on room air Labs are significant for WBC count of 17.2, left shift, glucose of 40 80, BNP of 138, troponin less than 3.5, COVID-19 RSV influenza negative Chest x-ray shows small bilateral pleural effusion and bibasilar opacities right greater than left which may represent atelectasis or sequelae of aspiration or pneumonia Mild bilateral bronchial wall thickening ?patient will be admitted for further management. Hospital course: Patient admitted for acute hypoxemic respite failure secondary to pneumonia: Started on antibiotics seems to improving,oxygen demand is improving also: Patient significantly feeling better, leukocytosis improving, blood cultures negative, no fevers. Patient improved significantly-with going home with p.o. antibiotics, respiratory will arrange home oxygen around 2 liter . Malnutrition : Patient was encouraged for p.o. as consider outpatient supplements if needed. dm: blood sugars flactauatin( one episode of asymptomatic hypoglycemia), continue metformin , repeat hba1c levels outpatient with pcp. plan: Please complete the course of antibiotic, repeat chest imaging in 3-4 weeks to see resolution of pneumonia. Repeat Hemoglobin A1c Slowly taper oxygen out patiently If possible. Assessment and plan coordination time spent 50 minute . Time Spent with Patient Time attestation: Total time managing care of this patient today ____ minutes. Discharge coordination time: Greater than 30 minutes Quality: Safe Use of Opioids Does Pt have an Active Cancer Diagnosis on the Problem List?: No Quality: Stroke Does the patient have a stroke diagnosis?: No Physical Exam Vital Signs: Vital Signs: Last Vital Signs Temp 98.4 F 07/15/22 07:37 Pulse 90 07/15/22 09:27 Resp 16 07/15/22 07:37 BP 129/64 07/15/22 09:27 Pulse Ox 92 07/15/22 09:27 O2 Del Method 07/15/22 07:37 O2 Flow Rate 2.5 07/15/22 07:37 BMI result Body Mass Index 16.2 Appearance: Alert.? Oriented X3.?sob cvs: rrr, [id number] , no murmur res: air entry seems diminshed at bases ,few scattered dry cracles. abd: no rebound or guarding ,nt, bs present. ext pulses present , no cyanosis. neuro: axo3 , nonfocal. DS: Data Data Completed and Pending Labs on day of discharge: Laboratory Results - last 24 hr 07/14/22 07/14/22 07/14/22 16:45 20:25 20:34 POC Glucose 325 H 202 H Troponin I High Sens < 3.5 07/15/22 07/15/22 07:19 11:08 POC Glucose 74 213 H Troponin I High Sens Preliminary micro results at discharge 07/11/22 19:31 Blood Culture - Preliminary Blood - Venous No growth after 48 hours. 07/11/22 19:31 Blood Culture - Preliminary Blood - Venous No growth after 48 hours. Imaging Chest x-ray: Radiologist's impression: ITS Impressions Chest X-Ray 07/11/22 19:40 IMPRESSION: 1. Small bilateral pleural effusions and bibasilar opacities, right greater than left, which may represent atelectasis, sequela of aspiration, or pneumonia. 2. Mild bilateral bronchial wall thickening. Discharge Plan Discharge Anticipated Discharge Date/Time: 07/15/22 15:04 Patient Disposition: Home Health Service Discharge Diagnosis: Acute hypoxemic respiratory failure secondary to pneumonia. Referrals: Rosalinda Teague MD [Primary Care Provider] - 1 Week Discharge Medications: New azithromycin 500 mg tablet 500 mg PO DAILY 5 Days Qty: 5 0RF cefuroxime axetil 500 mg tablet 500 mg PO BID Qty: 12 0RF Continued cholecalciferol (vitamin D3) [Vitamin D3] 10 mcg (400 unit) Tablet 10 mcg PO DAILY Women's 50 Plus Multivitamin 400 mcg-500 mg calcium-20 mcg tablet 1 tab PO DAILY magnesium citrate 125 mg capsule 125 mg PO BEDTIME lutein 20 mg capsule 20 mg PO DAILY Rx Instructions: give with meal/snack ascorbic acid (vitamin C) 500 mg capsule 500 mg PO DAILY biotin 1 mg capsule 1 mg PO DAILY (DME) OneTouch Ultra Blue Test Strip Strip See Rx Instructions .ROUTE .MEDSUPPLY Qty: 100 5RF Rx Instructions: Check fasting blood sugar daily at varied time (DME) blood-glucose meter Kit See Rx Instructions .ROUTE .MEDSUPPLY Qty: 1 0RF Rx Instructions: As directed- poc daily at varied time (DME) lancets [OneTouch Delica Lancets] 33 gauge misc See Rx Instructions .ROUTE .MEDSUPPLY Qty: 100 4RF Rx Instructions: Check blood sugar daily at varied time metformin 500 mg tablet 500 mg PO BID Discharge Orders: Discharge Order (Routine); Ordered 07/15/22 Ordered By: Vania Vasques Diet: Advance to usual diet Activity on Discharge: As tolerated Stand Alone Forms: Patient Portal Discharge page Care Plan Goals: Patient admitted for shortness of breath and pneumonia: Started on antibiotics seems to improving,oxygen demand is improving also: Patient significantly feeling better, leukocytosis improving, blood cultures negative, no fevers. Patient improved significantly-with going home with p.o. antibiotics, respiratory will arrange home oxygen around 2 liter . Malnutrition : Patient was encouraged for p.o. as consider outpatient supplements if needed. dm: blood sugars flactauatin, continue metformin , repeat hba1c levels outpatient with pcp. Health Concerns: as above. Plan of Treatment: as above. Assessment: As above.
--- NOTE | 2022-07-15 15:18 | W.MHC.F2F ---
Service Date Service Date: 07/15/22 Encounter Date of encounter: 07/15/22 Encounter: Acute hypoxemic respiratory failure, pneumonia, nutrition Reasons for Services Signs and symptoms assessed: Shortness of breath, fever or decreased p.o. intake. Reason for nursing home: medication management, medication treatment and teach disease management Reason for physical therapy: home safety and mobility, therapeutic exercises, restore joint function, gait/transfer training, assess need for DME, ADL training, energy conservation and other MD Overseeing Care: Rosalinda Teague Homebound: Leaving the home is medically contraindicated at this time without the asist of a device and/or another person due th the listed conditions above and below. Reason homebound: weakness related to hospital stay Homebound supporting statement: Patient on multiple comorbidities including to hypoxemic respiratory failure with pneumonia, generalized weak and malnutrition need help to go to appointments . Certification: Based on the above findings, I certify that this patient is confined to the home and needs intermittent nursing home care, physical therapy and/or speech therapy, or continues to need occupational therapy. The patient is under my care, and I have initiated the establishment of the plan of care. The patient will be followed by a physician who will periodically review the plan of care. Time Spent With Patient Time: Total time managing care of this patient today ____ minutes.
[2022-07-15 15:20] VITALS: BP 123/63; PULSE 90; RESP 17; TEMP 37.2; O2SAT 92
--- NOTE | 2022-07-15 15:41 | MHC.CM.PN ---
DP: IMM DELIVERED PT HAS BEEN MEDICALLY CLEARED FOR DC HOME WITH NEW [facility] SERVICES FOR SN AND PT. PT WILL HAVE NEW HOME 02 THROUGH [facility]. RN AWARE. PT WILL CALL FOR TRANSPORT.
[2022-07-15] MEDS: Azithromycin 500 MG TABLET PO (16:06)
--- NOTE | 2022-07-19 09:48 | P.CDIR_ITS ---
Documented by User: Kacey Jordan CCS, CDIS 07/19/22 09:51 Retrospective Query PHYSICIAN'S DOCUMENTATION REQUEST Date of Query: 07/19/22948 Patient Name: Anu Stephens Admit Date: 07/11/22 Dear Doctor, A review of the medical record indicates additional documentation may be needed. Please review below and update the documentation accordingly. Risk Factors/Clinical Indicators/Treatments H&P: 2/6 - Assessment/plan - Sepsis due to pneumonia WBC 17.2 HR 111 RR 37 IV Antibiotics/oxygen. Based on the above, could you clarify in the Progress Notes the appropriate diagnosis, if significant, that supports the above abnormalities and additional evaluation, monitoring, and/or treatment rendered: * Sepsis due to pneumonia * Other (please specify) * Unable to determine Use of terms such as suspected, likely, concern for, or probable (associated with a specific diagnosis that is being evaluated, monitored, or treated as if it exists) are acceptable and can be coded in the inpatient setting, when docum ented at the time of discharge. Thank you, Kacey Jordan CCS, CDIS Extension: [phone] Please use your independent medical judgment in providing your response. THIS QUERY IS PART OF THE PERMANENT MEDICAL RECORD Documented by User: Vania Vasques MD 07/19/22 14:00 Retrospective Query Provider Response: Other (sepsis sec to pneumonia)
== END 2022-07-15 16:36 | disposition home health service (06) | DRG 871 ==
LOC: HO.ED 19:51 → HO.EDOVER 22:15 → HO.S3 07-12 17:13
PROVIDERS: Physician Assistant; Admitting Provider Internal Medicine; Emergency Provider Emergency Medicine; PCP Internal Medicine; Visit Provider Internal Medicine
DX: A41.9 Sepsis, unspecified organism (principal); J18.9 Pneumonia, unspecified organism; J96.01 Acute respiratory failure with hypoxia; E44.1 Mild protein-calorie malnutrition; Z68.1 Body mass index [BMI] 19.9 or less, adult; J91.8 Pleural effusion in other conditions classified elsewhere; E11.649 Type 2 diabetes mellitus with hypoglycemia without coma; E11.65 Type 2 diabetes mellitus with hyperglycemia; Z20.822 Contact with and (suspected) exposure to COVID-19; Z87.01 Personal history of pneumonia (recurrent); Z88.2 Allergy status to sulfonamides; Z79.84 Long term (current) use of oral hypoglycemic drugs; Z79.899 Other long term (current) drug therapy
CPT/HCPCS: 0241U; 36415; 71045; 80048; 80053; 82009; 82947; 83605; 83880; 84484; 85025; 85610; 85730; 87040; 92610; 93005; 94640; 97116; 97162; 99285; J0456; J0696; J1650; J2930

== ENCOUNTER → 2022-10-14 11:27 | Outpatient (REF) | payer MEDICARE, SELFPAY ==
--- NOTE | 2022-10-14 11:31 | HM_ITS ---
Conclusion: 1. Patient was monitored for total period of 3 days 2. Baseline was normal sinus rhythm with average heart rate of 88 beats per minute 3. Occasional PVCs noted with total burden of 0.25% 4. No significant pauses greater than 2.5 seconds noted 5. No patient reported events MTDD
== END ==
LOC: HO.CARD 11:27
PROVIDERS: PCP Nurse Practitioner Family; Visit Provider Nurse Practitioner Family
DX: R00.2 Palpitations (principal)
CPT/HCPCS: 93242

== ENCOUNTER → 2022-10-27 14:42 | Outpatient (BNVA) | payer MEDICARE, SELFPAY | PROVIDERS: PCP Nurse Practitioner Family; Visit Provider Internal Medicine | DX: J18.9 Pneumonia, unspecified organism (principal); J43.9 Emphysema, unspecified; R09.02 Hypoxemia | CPT/HCPCS: 99202 ==

== ENCOUNTER 2022-12-21 15:47 | Outpatient (AMB) | payer MEDICARE, SELFPAY ==
[2022-12-21 15:48] VITALS: BP 112/64; PULSE 93; O2SAT 92; BMI 13.9
--- NOTE | 2022-12-21 15:48 | A.OFFPC_ITS ---
Vital Signs 12/21/22 15:48 Height 5 ft 4 in Weight 81 lb 0.6 oz BMI 13.9 BP 112/64 Blood Pressure Location Lt brachial Position Sitting Pulse 93 Pulse Source Pulse Oximeter Temp Source Skin Pulse Oximetry (%) 92 Oxygen Delivery Method Room Air Intake Visit Reasons: F/U DM Intake Note: Patient is here to follow up on DM Manager [employer] Required: No Allergies sulfa Allergy (Unknown, Verified 12/21/22 16:03) diarrhea midazolam [From Versed] Adverse Reaction (Severe, Verified 12/21/22 16:03) bradycardia Medication List - Last Reconciled 12/21/22 by NAVID Arboleda ascorbic acid (vitamin C) 500 mg PO DAILY biotin 1 mg PO DAILY blood sugar diagnostic (Mass Vector Ultra Blue Test Strip) Check fasting blood sugar daily at varied time blood-glucose meter As directed- poc daily at varied time cholecalciferol (vitamin D3) (Vitamin D3) 10 mcg PO DAILY lancets (B2B-[place] Delica Lancets) Check blood sugar daily at varied time lutein 20 mg PO DAILY magnesium citrate 125 mg PO BEDTIME metformin 500 mg PO BID [id number] [id number] 400 mcg-500 mg calcium-20 mcg (Women's 50 Plus Multivitamin) 1 tab PO DAILY Tobacco use date assessed: 12/21/22 Fall risk assessment: No Falls in past year Last assessed Fall Risk: 12/21/22 HPI F/U DM HPI Details Patient is a 77-year-old female presents today to follow-up on diabetes. Medical history significant for diabetes mellitus, intermittent palpitations-will be seeing [facility], underweight, pulmonary emphysema-followed by [facility]. Patient reports that she is compliant with her metformin and she is followed by [facility] endocrinology for diabetes - will request records. She reports diabetic eye exam in spring with Dr. Schofield. She denies shortness of breath or chest pain. Patient is 81 lb today, patient reports that she tries to eat 3 meals per day, will refer to nutrition for an evaluation. Patient was encouraged to complete her blood work that was ordered at the last office visit. [facility] Medical History Diabetes mellitus with hyperglycemia, without long-term current use of insulin Diabetes mellitus with microalbuminuria, without long-term current use of insulin H/O fracture of wrist Hx of fracture of wrist Hypoxemia Intermittent palpitations Pneumothorax Pulmonary emphysema Underweight Vaccination refused by patient Surgical History History of femoral hernia repair Family History Father Diabetes mellitus Mother Essential hypertension Sister Breast cancer Social History Household Members: Significant Other Housing: House Do you presently have visiting nurse or other home services: No Alcohol intake: never Patient Tobacco Use Status: Never used Tobacco e-Cigarette/Vaping Use: Never Used service: No Current occupational status: retired Cognitive needs: No Hearing needs: No Vision needs: No Questionnaire Thrive Questionnaire Date Thrive assessed: 08/24/22 AUDIT C Alcohol Use Questionnaire (AUDIT-C) 1. How often do you have a drink containing alcohol?: Never 3. How often do you have six or more drinks on one occasion?: Never Total Score: 0 Score Reviewed/Action Taken: No ANA MARIA-7 AMB Questionnaire ANA MARIA-7 Date ANA MARIA - 7 assessed: 08/24/22 Source: Developed by Drs. Elias Gautam, Manasa Benedict, Lizandro Thomas and colleagues, with an educational lauren from [employer]. Review of Systems Const Denies body aches, Denies chills, Denies fever(s) and Denies headache(s) Eyes Denies blurry vision and Denies change in vision ENT Denies dizziness, Denies otalgia, Denies headache(s), Denies nasal discharge, Reports post nasal drip, Denies sinus pain and Denies sore throat Card Details: Intermittent palpitations Denies chest pain, Denies edema, Denies lightheadedness and Denies dyspnea Resp Denies cough and Denies dyspnea GI Denies constipation, Denies diarrhea, Denies nausea and Denies vomiting Denies dysuria Musc Denies myalgias Skin/Breast Denies lesions and Denies rash Neuro Denies dizziness and Denies headache(s) Physical exam (Primary Care) Vital Signs: Last Vital Signs Pulse 93 12/21/22 15:48 BP 112/64 12/21/22 15:48 Pulse Ox 92 12/21/22 15:48 Oxygen Delivery Method Room Air 12/21/22 15:48 BMI result Body Mass Index 13.9 Tobacco/Smoking Status: Tobacco use Status Tobacco use date assessed 12/21/22 12/21/22 15:50 Patient Tobacco Use Status Never used Tobacco 12/21/22 15:50 e-Cigarette/Vaping Use Never Used 12/21/22 15:50 Thrive Assessment: Date of Thrive Assessment Date Thrive assessed 08/24/22 12/21/22 15:50 Const General: cooperative and no acute distress Orientation/consciousness: patient oriented x3 HENMT Head: Yes normocephalic and Yes atraumatic Face and sinus: Yes sinuses nontender Mouth: oropharynx normal and moist mucous membranes Throat: Yes posterior oropharynx normal Eyes General: appearance normal, both eyes and all related structures Pupils: Equal, round and reactive pupils present EOM: EOMs intact bilaterally Neck Neck: Yes normal visual inspection, Yes full ROM and Yes no lymphadenopathy Thyroid: Thyroid normal Resp Effort & Inspection: normal respiratory effort and able to speak in complete sentences Auscultation: clear to auscultation bilaterally, no crackles, no rales, no rh onchi and no wheezes Cardio Rate: regular rate Rhythm: regular rhythm Heart sounds: S1 normal heart sound present, S2 normal heart sound present and no murmurs GI Palpation (GI): Soft to palpation, not firm, nontender, no guarding, not rigid and no hepatosplenomegaly Auscultation: normal bowel sounds Skin General skin exam: no rashes or lesions noted Neuro General: patient oriented x3 Cranial nerves: Yes Equal, round and reactive pupils present Gait exam (Neuro): Normal gait present Extrem General: Yes full ROM and No edema Results AMB Hemoglobin A1c AMB Hemoglobin A1c 9.2 % Last Edit by ALICE Domingo on 12/21/22 16:07 Results Reviewed Results Reviewed: Laboratory Last Values Hgb A1c (Clinic) 9.2 % (4.0-6.0) H 12/21/22 15:55 Assessment and Plan Assessment & Plan (1) Diabetes mellitus with microalbuminuria, without long-term current use of insulin: Comment: Currently being seen by Dr. Sue Vincent at [facility] endocrine clinic Code(s): E11.29 - Type 2 diabetes mellitus with other diabetic kidney complication; R80.9 - Proteinuria, unspecified Plan: A1c 9.2 today, goal less than 7 (she reports blood sugars at home ranging between 150 and 160s) Patient is on metformin 500 mg b.i.d. Low carbohydrate diet Patient reports diabetic eye exam in spring with Dr. Schofield Continue to follow-up with [facility] endocrinology - will request records (2) Underweight: Code(s): R63.6 - Underweight Plan: Patient reports that she tries to eat 3 meals per day, her weight is 81 lb today, encouraged 3 meals in a day with snacks.? Patient reports her weight in younger years about 100-110 lb.? Will refer to survey research teacher. (3) Pulmonary emphysema: Comment: Physical examination and the chest x-ray on 07/11/2022, indicate hyperinflated lungs, c/w pulmonary emphysema. Patient has had no pulmonary function testing. I explained to her about the chest x-ray finding, and my clinical impression. She should have pulmonary function test, which will be done before her next visit. Then we can decide if she would benefit from any bronchodilator treatment. Code(s): J43.9 - Emphysema, unspecified Plan: Continue to follow-up with pulmonology Dr. Garcia (4) Intermittent palpitations: Code(s): R00.2 - Palpitations Plan: Patient has an upcoming appointment with [facility] 10/2022 Holter monitor 1. Patient was monitored for total period of 3 days 2. Baseline was normal sinus rhythm with average heart rate of 88 beats per minute 3. Occasional PVCs noted with total burden of 0.25% 4. No significant pauses greater than 2.5 seconds noted 5.? No patient reported events? Plan Follow-up in 4 months for PE or sooner as needed, patient was encouraged to complete her fasting blood work Orders: Orders AMB Hemoglobin A1c Today E11.65 - Type 2 diabetes mellitus with hyperglycemia Referrals [employer] Specialist Nutrition Referral R63.6 - Underweight Coding Level of Care Code Est Pt Level 3 (03457) Diagnoses Diabetes mellitus with microalbuminuria, without long-term current use of insulin E11.29; R80.9 Underweight R63.6 Pulmonary emphysema J43.9 Intermittent palpitations R00.2
== END 2022-12-21 16:35 | disposition home or self-care (01) ==
PROVIDERS: PCP Nurse Practitioner Family; Visit Provider Nurse Practitioner Family
DX: E11.29 Type 2 diabetes mellitus with other diabetic kidney complication (principal); R80.9 Proteinuria, unspecified; R63.6 Underweight; J43.9 Emphysema, unspecified; R00.2 Palpitations; E11.65 Type 2 diabetes mellitus with hyperglycemia
CPT/HCPCS: 83036; 99213

== ENCOUNTER 2023-02-14 09:25 | Outpatient (REF) | payer MEDICARE, SELFPAY ==
[2023-02-14 10:24] LABS: Hematocrit 45.5 % (37.0-47.0); Hemoglobin 14.6 g/dl (12.0-16.0); Mean Corpuscular HGB Conc 32.1 g/dl (31.0-35.0); Mean Corpuscular Hemoglobin 30.5 pg (27.0-33.0); Mean Platelet Volume 10.1 fL (9.4-12.3); Platelet Count 192 X10*3/uL (160-400); Red Blood Count 4.79 X10*6/uL (4.20-5.50); Red Cell Distribution Width 14.6 % (11.0-16.0); White Blood Count 7.1 X10*3/uL (4.8-10.8)
[2023-02-14 11:03] LABS: Alanine Aminotransferase 21 U/L (0-31); Alkaline Phosphatase 60 U/L (39-117); Anion Gap 13 (12-20); Aspartate Amino Transferase 14 U/L (5-31); Bilirubin Total 0.6 mg/dL (0.0-1.0); Blood Urea Nitrogen 19 mg/dL (9-16); Carbon Dioxide 32 mmol/L (22-29); Chloride 101 mmol/L (96-108); Cholesterol 201 mg/dL (<200); Estimated Glomerular Filt Rate > 60; Glucose Fasting 177 mg/dL (60-99); HDL Cholesterol 101 mg/dL (>40); LDL Cholesterol Calculated 87 mg/dL (<100); Potassium 3.8 mmol/L (3.3-5.1); Sodium 142 mmol/L (135-145); Total Protein 7.4 g/dL (6.5-8.0); Triglycerides 69 mg/dL (<150)
[2023-02-14 11:22] LABS: TSH reflex Free T4 2.58 uIU/mL (0.32-4.0); Vitamin D 25-OH Total 54.5 ng/mL (>30)
[2023-02-14 11:26] LABS: Folate 15.6 ng/mL (> or = 4.0); Vitamin B12 739 pg/mL (200-900)
[2023-02-14 11:30] LABS: Creatinine Urine 122.09 mg/dL
[2023-02-14 11:49] LABS: Microalbum/Creatinine Ratio Ur 1205.6 ug/mg cr (<30)
== END 2023-02-14 09:26 | disposition home or self-care (01) ==
LOC: HO.LAB 09:25
PROVIDERS: PCP Nurse Practitioner Family; Visit Provider Nurse Practitioner Family
DX: E11.29 Type 2 diabetes mellitus with other diabetic kidney complication (principal); R80.9 Proteinuria, unspecified; R09.02 Hypoxemia; R00.2 Palpitations
CPT/HCPCS: 36415; 80053; 80061; 82043; 82306; 82570; 82607; 82746; 84443; 85027

== ENCOUNTER 2023-03-30 16:45 | Emergency (ER) | payer MEDICARE, SELFPAY ==
[2023-03-30 17:09] VITALS: BP 127/73; PULSE 100; RESP 16; TEMP 36.7; O2SAT 89; BMI 14.1
--- NOTE | 2023-03-30 17:10 | ED.GENADULT ---
HPI - General Adult General Chief complaint: Epistaxis Stated complaint: nose bleed Time Seen by Provider: 03/30/23 17:32 Source: patient, RN notes reviewed and old records reviewed Mode of arrival: ambulatory Limitations: no limitations History of Present Illness HPI narrative: 77-year-old female presents for evaluation a nosebleed. Patient reports that she noticed her symptoms started 9:00 a.m. this morning about 8 hours prior to arrival Her symptoms started after she was using supplemental oxygen via nasal cannula She is unsure the rate of oxygen that she receives when using p.r.n. oxygen. She has not tried anything to help stop the a nose bleed. She states that in the past she has used saline nasal spray or Vaseline to help prevent mucosal injury while using supplemental oxygen but has not done now over the summer. Denies any pain Related Data Home Medications Medication Instructions Recorded Confirmed ascorbic acid (vitamin C) 500 mg 500 mg PO DAILY 05/26/20 12/21/22 capsule biotin 1 mg capsule 1 mg PO DAILY 05/26/20 12/21/22 lutein 20 mg capsule 20 mg PO DAILY 05/26/20 12/21/22 magnesium citrate 125 mg capsule 125 mg PO BEDTIME 05/26/20 12/21/22 [id number] ac 400 1 tab PO DAILY 05/26/20 12/21/22 mcg-calcium carb 500 mg-vit K1 20 mcg tablet (Women's 50 Plus Multivitamin) metformin 500 mg tablet 500 mg PO BID 06/16/22 12/21/22 cholecalciferol (vitamin D3) 10 10 mcg PO DAILY 07/11/22 12/21/22 mcg (400 unit) tablet (Vitamin D3) Previous Rx's Medication Instructions Recorded blood sugar diagnostic (XAPPmediaTouch #100 ea 07/08/20 Ultra Blue Test Strip) blood-glucose meter #1 ea 07/08/20 lancets 33 gauge (OneTouch Delica #100 ea 07/08/20 Lancets) amoxicillin 875 mg-potassium 1 tab PO Q12H #9 tabs 03/30/23 clavulanate 125 mg tablet Allergies Allergy/AdvReac Type Severity Reaction Status Date / Time sulfa Allergy Unknown diarrhea Verified 03/30/23 17:09 midazolam [From Versed] AdvReac Severe bradycardia Verified 03/30/23 17:09 Review of Systems Constitutional: Constitutional: Denies chills and Denies fever(s) ENT: Reports epistaxis Cardiovascular: Cardiovascular: Denies chest pain and Denies dyspnea Respiratory: Respiratory: Denies cough and Denies dyspnea Gastrointestinal: Gastrointestinal: Denies abdominal pain, Denies melena and Denies hematochezia [facility] Past Medical History Medical History Diabetes mellitus with hyperglycemia, without long-term current use of insulin Diabetes mellitus with microalbuminuria, without long-term current use of insulin H/O fracture of wrist Hx of fracture of wrist Hypoxemia Intermittent palpitations Pneumothorax Pulmonary emphysema Underweight Vaccination refused by patient Surgical History History of femoral hernia repair Family History Family History Father Diabetes mellitus Mother Essential hypertension Sister Breast cancer Social History Social History Household Members: Significant Other Housing: House Do you presently have visiting nurse or other home services: No Alcohol intake: never Patient Tobacco Use Status: Never used Tobacco e-Cigarette/Vaping Use: Never Used Advance Directives: No Advance Directives Information Provided: No service: No Current occupational status: retired Cognitive needs: No Hearing needs: No Vision needs: No Physical Exam ED Vital Signs: Vital Signs - 24 hr 03/30/23 17:09 Temperature 98.1 F Pulse Rate 100 Respiratory Rate 16 Blood Pressure 127/73 Pulse Oximetry 89 L Oxygen Delivery Method Room Air BMI result Body Mass Index 14.1 Const General: healthy appearing, comfortable, no acute distress, alert and awake Nutritional Appearance: well nourished Orientation/consciousness: patient oriented x3 HENMT Head: Yes normocephalic and Yes atraumatic Eyes Eyelids: Yes eyelids normal Conjunctivae: conjunctivae normal Sclerae: sclerae normal Corneas: corneas normal Pupils: Equal, round and reactive pupils present EOM: EOMs intact bilaterally Neck Neck: Yes full ROM Resp Effort & Inspection: normal respiratory effort, able to speak in complete sentences and not labored Skin General skin exam: elasticity normal Neuro General: patient oriented x3 Cranial nerves: Yes Equal, round and reactive pupils present and Yes Bilaterally intact EOM present Cognition (Neuro): normal cognition Extrem Other: Moving all extremities well without any obvious deformities Course Course Course Narrative: RME- 77 year old female presents for evaluation of a nose bleed for the last 8 hours. She reports that she uses oxygen PRN and her symptoms started after removing the nasal canula. Plan for labs and coags Reevaluation(s) Reevaluation #1: Patient is still bleeding after Afrin nasal clamping. Will trial topical cocaine to attempt to stop the nosebleed. I do not see any location amenable to silver nitrate cauterization Time: 18:56 Reevaluation #2: Patient declined topical cocaine use and would prefer to attempt afrin one more time with nasal clamping. If this fails, she will likely require rapid rhino Time: 19:11 Reevaluation #3: Patient still bleeding after 2nd attempt with Afrin nasal clamping. Discussed risks and benefits of ruptured with the patient which will be performed. The patient was provided with an OxyMask slight issue to use her p.r.n. oxygen at home she would not have to use a nasal cannula with her right eye in place. Time: 20:22 Additional Reevaluation(s): Patient has had no further bleeding after rapid rhino inserted. Will discharge patient with Augmentin and ENT follow-up. Patient was given return precautions Medications Administered Discontinued Medications Generic Name Dose Route Start Last Admin Trade Name Freq PRN Reason Stop Dose Admin Cocaine HCl 4 ml 03/30/23 18:41 03/30/23 20:21 Cocaine Hcl 4 % 4 Ml Solution TOPICAL 03/30/23 18:42 Not Given ONCE ONE Protocol Oxymetazoline HCl 2 spray 03/30/23 17:33 03/30/23 17:46 Oxymetazoline Hcl 0.05 % Nasal 15 Ml Paulina NOSTRIL-B 03/30/23 17:34 2 spray ONCE ONE Administration Procedures Procedure Narrative Procedure Narrative: Discussed risks and benefits of the procedure the patient Informed consent was obtained I attempted to insert a 7.5 cm rapid rhino into the patient's right nostril and the patient was unable to tolerate this. This was then removed and I inserted a 5.5 cm rapid rhino into the right nostril all the way to the hub. This was inflated with 6 cc of normal saline Patient tolerated this procedure well without complication Medical Decision Making Medical Decision Making MDM Narrative: 77-year-old male presents for evaluation nose bleed for the last 8 hours. She is not on any anticoagulation or antiplatelet medication. Will trial Afrin nasal spray with nasal clamping initially. Labs were ordered which do not show any significant anemia or coagulopathy Differential Diagnosis Differential Diagnoses: The differential diagnosis associated with the presentation includes Coagulopathy Epistaxis Nose bleed Nasal mucosal injury Lab Data MDM Lab Attestation statement: I reviewed the patient's lab results. No anemia or leukocytosis. The patient does have a high BUN to creatinine ratio which is likely related to blood from and epistaxis getting into the GI tract. She denies any black or bloody stool. 03/30/23 18:08 03/30/23 18:07 Labs: Lab Results 03/30/23 03/30/23 Range/Units 18:07 18:08 WBC 10.1 (4.8-10.8) X10*3/uL RBC 4.26 (4.20-5.50) X10*6/uL Hgb 13.2 (12.0-16.0) g/dl Hct 40.1 (37.0-47.0) % MCV 94.1 (80.0-98.0) fL MCH 31.0 (27.0-33.0) pg MCHC 32.9 (31.0-35.0) g/dl RDW 14.2 (11.0-16.0) % Plt Count 177 (160-400) X10*3/uL MPV 9.9 (9.4-12.3) fL Immature Gran % (Auto) 0.2 (0.0-0.4) % Neut % (Auto) 80.4 H (45-73) % Lymph % (Auto) 11.6 L (20-40) % Frederick % (Auto) 6.4 (2-11) % Eos % (Auto) 1.0 (0-4) % Baso % (Auto) 0.4 (0-2) % Lymph # (Auto) 1.2 (1.2-4.9) X10*3/uL Frederick # (Auto) 0.7 (0.1-1.2) X10*3/uL Eos # (Auto) 0.1 (0.0-0.4) X10*3/uL Baso # (Auto) 0.0 (0.0-0.2) X10*3/uL Abs Immat Gran (auto) 0.02 (0.00-0.03) X10*3/uL Absolute Neuts (auto) 8.1 (2.0-8.3) x10*3/uL Absolute Nucleated RBC 0.000 (0.0-0.012) X10*3/uL Nucleated RBC % (auto) 0.0 (0.0-0.2) /100WBC PT 13.1 (11.1-13.3) SEC INR 1.1 (0.9-1.1) APTT 32.4 (26.0-36.4) SEC Sodium 140 (135-145) mmol/L Potassium 4.1 (3.3-5.1) mmol/L Chloride 99 (96-108) mmol/L Carbon Dioxide 29 (22-29) mmol/L Anion Gap 16 (12-20) BUN 44 H (9-16) mg/dL Creatinine 0.87 (0.5-1.4) mg/dL Estim Creat Clear Calc 37.1 Estimated GFR > 60 Random Glucose 282 H (60-115) mg/dL Calcium 10.2 (8.4-10.2) mg/dL Total Bilirubin 0.4 (0.0-1.0) mg/dL AST 15 (5-31) U/L ALT 17 (0-31) U/L Alkaline Phosphatase 61 (39-117) U/L Total Protein 7.2 (6.5-8.0) g/dL Albumin 3.9 (3.5-5.0) g/dL Discharge Plan Discharge Clinical Impression: Epistaxis Patient Disposition: Home, Self-Care Instructions: Nosebleed (ED) Additional Instructions: You had a Rapid rhino inserted into her nostril to control your nose bleed This needs to stay in for about 3 days You may follow-up with Dr. Ahmadi by calling tomorrow to see if he will given appointment If not, you may return to the ER in 72 hours Take Augmentin twice daily to prevent infection Prescriptions: New amoxicillin-pot clavulanate 875-125 mg tablet 1 tab PO Q12H Qty: 9 0RF No Action cholecalciferol (vitamin D3) [Vitamin D3] 10 mcg (400 unit) Tablet 10 mcg PO DAILY Women's 50 Plus Multivitamin 400 mcg-500 mg calcium-20 mcg tablet 1 tab PO DAILY magnesium citrate 125 mg capsule 125 mg PO BEDTIME lutein 20 mg capsule 20 mg PO DAILY Rx Instructions: give with meal/snack ascorbic acid (vitamin C) 500 mg capsule 500 mg PO DAILY biotin 1 mg capsule 1 mg PO DAILY (DME) OneTouch Ultra Blue Test Strip Strip See Rx Instructions .ROUTE .MEDSUPPLY Qty: 100 5RF Rx Instructions: Check fasting blood sugar daily at varied time (DME) blood-glucose meter Kit See Rx Instructions .ROUTE .MEDSUPPLY Qty: 1 0RF Rx Instructions: As directed- poc daily at varied time (DME) lancets [OneTouch Delica Lancets] 33 gauge misc See Rx Instructions .ROUTE .MEDSUPPLY Qty: 100 4RF Rx Instructions: Check blood sugar daily at varied time metformin 500 mg tablet 500 mg PO BID
[2023-03-30] MEDS: Oxymetazoline HCl 0.05 % Nasal 15 ML SPRAY 2 SPRAY NOSTRIL-B (17:46)
--- NOTE | 2023-03-30 17:51 | PC.NURSE ---
pt medicated per MAR- nose clamp applied- pending provider pamellaal
[2023-03-30 18:11] LABS: MANUAL DIFF FLAG NO
[2023-03-30 18:15] LABS: Basophils Percent Auto 0.4 % (0-2); Eosinophils Absolute Auto 0.1 X10*3/uL (0.0-0.4); Hematocrit 40.1 % (37.0-47.0); Hemoglobin 13.2 g/dl (12.0-16.0); Imm Gran Abs Auto 0.02 X10*3/uL (0.00-0.03); Imm Gran Pct Auto 0.2 % (0.0-0.4); Lymphocytes Absolute Auto 1.2 X10*3/uL (1.2-4.9); Lymphocytes Percent Auto 11.6 % (20-40); Mean Corpuscular HGB Conc 32.9 g/dl (31.0-35.0); Mean Corpuscular Volume 94.1 fL (80.0-98.0); Mean Platelet Volume 9.9 fL (9.4-12.3); Monocytes Absolute Auto 0.7 X10*3/uL (0.1-1.2); Monocytes Percent Auto 6.4 % (2-11); Neutrophils Absolute Auto 8.1 x10*3/uL (2.0-8.3); Neutrophils Percent Auto 80.4 % (45-73); Platelet Count 177 X10*3/uL (160-400); Red Blood Count 4.26 X10*6/uL (4.20-5.50); Red Cell Distribution Width 14.2 % (11.0-16.0); White Blood Count 10.1 X10*3/uL (4.8-10.8)
[2023-03-30 18:24] LABS: INTERNATIONAL NORM RATIO 1.1 (0.9-1.1); Prothrombin Time 13.1 SEC (11.1-13.3)
[2023-03-30 18:26] LABS: Partial Thromboplastin Time 32.4 SEC (26.0-36.4)
[2023-03-30 18:26] LABS: Alanine Aminotransferase 17 U/L (0-31); Albumin Level 3.9 g/dL (3.5-5.0); Alkaline Phosphatase 61 U/L (39-117); Anion Gap 16 (12-20); Aspartate Amino Transferase 15 U/L (5-31); Bilirubin Total 0.4 mg/dL (0.0-1.0); Blood Urea Nitrogen 44 mg/dL (9-16); Calcium 10.2 mg/dL (8.4-10.2); Carbon Dioxide 29 mmol/L (22-29); Chloride 99 mmol/L (96-108); Creatinine Clr Calc Pharmacy 37.1; Estimated Glomerular Filt Rate > 60; Glucose Random 282 mg/dL (60-115); Potassium 4.1 mmol/L (3.3-5.1); Sodium 140 mmol/L (135-145); Total Protein 7.2 g/dL (6.5-8.0)
--- NOTE | 2023-03-30 19:51 | PC.NURSE ---
spoke with respiratory, okay to use oxy mask in place of NC while rhino rocket in place
[2023-03-30] MEDS: Amoxicillin/Potassium Clav 875 MG TABLET PO (20:49)
== END 2023-03-30 21:01 | disposition home or self-care (01) ==
PROVIDERS: Physician Assistant; Emergency Provider Emergency Medicine; PCP Nurse Practitioner Family
DX: R04.0 Epistaxis (principal); Z79.899 Other long term (current) drug therapy
CPT/HCPCS: 30901; 36415; 80053; 85025; 85610; 85730; 99282; 99283

== ENCOUNTER 2023-04-02 17:05 | Emergency (ER) | payer MEDICARE, SELFPAY ==
--- NOTE | 2023-04-02 17:07 | ED.GENADULT ---
HPI - General Adult General Chief complaint: General Medical Stated complaint: Removal of Nasal tube Time Seen by Provider: 04/02/23 18:29 Related Data Home Medications ?Medication ?Instructions ?Recorded ?Confirmed ascorbic acid (vitamin C) 500 mg 500 mg PO DAILY 05/26/20 09/07/23 capsule lutein 20 mg capsule 20 mg PO DAILY 05/26/20 09/07/23 magnesium citrate 125 mg capsule 125 mg PO BEDTIME 05/26/20 09/07/23 ysbevcpf-ylz-wbysj ac 400 1 tab PO DAILY 05/26/20 09/07/23 mcg-calcium carb 500 mg-vit K1 20 mcg tablet (Women's 50 Plus Multivitamin) cholecalciferol (vitamin D3) 10 10 mcg PO DAILY 07/11/22 09/07/23 mcg (400 unit) tablet (Vitamin D3) aspirin 81 mg chewable tablet 81 mg PO DAILY PRN Pain 09/01/23 09/07/23 Previous Rx's ?Medication ?Instructions ?Recorded blood sugar diagnostic (tocarioTouch #100 ea 07/08/20 Ultra Blue Test Strip) blood-glucose meter #1 ea 07/08/20 lancets 33 gauge (OneTouch Delica #100 ea 07/08/20 Lancets) cefuroxime axetil 500 mg tablet 500 mg PO BID 3 days #6 tabs 09/05/23 insulin lispro 100 unit/mL 1 sliding scale dose subcut 09/05/23 subcutaneous half-unit pen USEASDIRECTD #15 mL metformin 850 mg tablet 850 mg PO BID #60 tabs 09/05/23 Allergies Allergy/AdvReac Type Severity Reaction Status Date / Time sulfa Allergy Unknown diarrhea Verified 09/07/23 17:35 midazolam [From Versed] AdvReac Severe bradycardia Verified 09/07/23 17:35 [facility] Past Medical History Medical History Sepsis Pneumonia Acute sinusitis Hypoxemia Pulmonary emphysema Pneumothorax Diabetes mellitus with microalbuminuria, without long-term current use of insulin Vaccination refused by patient Underweight Intermittent palpitations Diabetes mellitus with hyperglycemia, without long-term current use of insulin Hx of fracture of wrist H/O fracture of wrist Surgical History H/O wrist surgery History of femoral hernia repair Family History Family History Father Diabetes mellitus Mother Essential hypertension Sister Breast cancer Social History Social History Household Members: Spouse Housing: House Do you presently have visiting nurse or other home services: No Alcohol intake: never Comment: bed alarm is not working. put chair alarm on her Patient Tobacco Use Status: Never used Tobacco e-Cigarette/Vaping Use: Never Used Advance Directives Date on File: 06/16/22 service: No Current occupational status: retired Cognitive needs: No Hearing needs: No Vision needs: No Physical Exam ED Vital Signs: BMI result Body Mass Index 14.0 Course Course Course Narrative: This is an RME: Additional HPI, ROS, PE not included below will be deferred to primary provider. 77 year old female presents requesting to get her rapid rhino removed had it put in on 03/30/23 reports no bleeding . Taking augmentin. Plan- removal [facility]MC appropriate Discharge Plan Discharge Clinical Impression: Eloped from emergency department Patient Disposition: Left W/O Completing Treatment Prescriptions: No Action cholecalciferol (vitamin D3) [Vitamin D3] 10 mcg (400 unit) Tablet 10 mcg PO DAILY aspirin 81 mg Tablet,Chewable 81 mg PO DAILY PRN (Reason: Pain) cefuroxime axetil 500 mg tablet 500 mg PO BID 3 Days Qty: 6 0RF metformin 850 mg tablet 850 mg PO BID Qty: 60 0RF insulin lispro 100 unit/mL insulin pen, half-unit 1 sliding scale dose subcut USEASDIRECTD Qty: 15 0RF Rx Instructions: BG <111 0 units, 111-150 - 0 units, 151-200 2 units, 201-250 4 units, 251-300 6 units, 301-350 8 units, >350 10 units Women's 50 Plus Multivitamin 400 mcg-500 mg calcium-20 mcg tablet 1 tab PO DAILY magnesium citrate 125 mg capsule 125 mg PO BEDTIME lutein 20 mg capsule 20 mg PO DAILY Rx Instructions: give with meal/snack ascorbic acid (vitamin C) 500 mg capsule 500 mg PO DAILY (DME) OneTouch Ultra Blue Test Strip Strip See Rx Instructions .ROUTE .MEDSUPPLY Qty: 100 5RF Rx Instructions: Check fasting blood sugar daily at varied time (DME) blood-glucose meter Kit See Rx Instructions .ROUTE .MEDSUPPLY Qty: 1 0RF Rx Instructions: As directed- poc daily at varied time (DME) lancets [OneTouch Delica Lancets] 33 gauge misc See Rx Instructions .ROUTE .MEDSUPPLY Qty: 100 4RF Rx Instructions: Check blood sugar daily at varied time Discharge Date/Time: 04/02/23 18:37
[2023-04-02 17:15] VITALS: BP 111/69; PULSE 96; RESP 17; TEMP 36.8; O2SAT 93; BMI 14.0
== END 2023-04-02 18:37 | disposition left against medical advice (07) ==
PROVIDERS: Emergency Provider Emergency Medicine
DX: Z46.89 Encounter for fitting and adjustment of other specified devices (principal)
CPT/HCPCS: 99281

== ENCOUNTER 2023-04-05 14:51 | Outpatient (AMB) | payer MEDICARE, SELFPAY ==
[2023-04-05 14:53] VITALS: BP 96/58; PULSE 105; BMI 14.7
--- NOTE | 2023-04-05 14:53 | A.OFFVIS_ITS ---
Intake Vital Signs 04/05/23 14:53 Height 5 ft 3 in Weight 83 lb 1.828 oz BMI 14.7 BP 96/58 L Blood Pressure Location Lt brachial Position Sitting Pulse 105 H Intake Visit Reasons: NPV/Palpitations/B. [place] Intake Note: NPV Literacy Coach Required: No Accompanied by: Spouse Allergies sulfa Allergy (Unknown, Verified 04/05/23 14:55) diarrhea midazolam [From Versed] Adverse Reaction (Severe, Verified 04/05/23 14:55) bradycardia Medication List - Last Reconciled 04/05/23 by Garfield Rapp MD amoxicillin-pot clavulanate 875-125 mg 1 tab PO Q12H ascorbic acid (vitamin C) 500 mg PO DAILY biotin 1 mg PO DAILY blood sugar diagnostic ([employer] Ultra Blue Test Strip) Check fasting blood sugar daily at varied time blood-glucose meter As directed- poc daily at varied time cholecalciferol (vitamin D3) (Vitamin D3) 10 mcg PO DAILY lancets ([employer] Delica Lancets) Check blood sugar daily at varied time lutein 20 mg PO DAILY magnesium citrate 125 mg PO BEDTIME metformin 500 mg PO BID uz-oqe-hfgsd-calcium carb-K1 400 mcg-500 mg calcium-20 mcg (Women's 50 Plus Multivitamin) 1 tab PO DAILY HPI HPI Comments History of Present Illness Details Anu is here for consultation regarding tachycardia. She states that she has been having elevated heart rates intermittently for quite some t radha. Apparently, she has had heart rate issues being retic for many decades even her 30s. However, more recently she is noticing that her heart rates radically run as much as 180/Min. She is noticing these in her pulse oximeter. Sometimes, these last as much as a few hours. She can feel her heart pounding during those times. Otherwise, no history of any coronary disease myocardial infarction or cardiomyopathy. She seems to be underweight. Carries diagnosis of emphysema, hypoxemia requiring some supplemental oxygen as well as diabetes. [facility], [facility] Medical History Diabetes mellitus with hyperglycemia, without long-term current use of insulin Diabetes mellitus with microalbuminuria, without long-term current use of insulin H/O fracture of wrist Hx of fracture of wrist Hypoxemia Intermittent palpitations Pneumothorax Pulmonary emphysema Underweight Vaccination refused by patient Surgical History History of femoral hernia repair Family History Father Diabetes mellitus Mother Essential hypertension Sister Breast cancer Social History Household Members: Significant Other Housing: House Do you presently have visiting nurse or other home services: No Alcohol intake: never Patient Tobacco Use Status: Never used Tobacco e-Cigarette/Vaping Use: Never Used Advance Directives Date on File: 06/16/22 service: No Current occupational status: retired Cognitive needs: No Hearing needs: No Vision needs: No Review of Systems Const All systems reviewed & are unremarkable except as noted in HPI and below Reports as per HPI and Reports no additional complaints Eyes Reports as per HPI and Denies no additional complaints ENT Denies no additional complaints and Reports as per HPI Card Reports as per HPI, Reports no additional complaints, Denies acrocyanosis, Denies chest pain, Denies leg edema, Denies lightheadedness, Denies palpitations and Denies dyspnea Resp Reports as per HPI, Denies no additional complaints and Denies dyspnea GI Reports as per HPI and Denies no additional complaints Reports as per HPI Musc Reports no additional complaints and Reports as per HPI Skin/Breast Reports system reviewed and no additional complaints, except as documented Neuro Reports no additional complaints and Reports as per HPI Psych Reports no additional complaints and Reports as per HPI Endo Reports no additional complaints, Reports as per HPI and Denies palpitations Félix/Lymph Reports no additional complaints and Reports as per HPI Aller/Immun Reports no additional complaints and Reports as per HPI Physical Exam Vital Signs: Last Vital Signs Pulse 105 H 04/05/23 14:53 BP 96/58 L 04/05/23 14:53 BMI result Body Mass Index 14.7 Const General: comfortable and no acute distress Orientation/consciousness: patient oriented x3 HEENT Other: Unremarkable Head: Yes normal to inspection Neck Neck: Yes normal visual inspection Chest Chest palpation & inspection: normal inspection of the chest Resp Auscultation: clear to auscultation bilaterally Cardio Palpation: normal PMI Heart sounds: S1 normal heart sound present, S2 normal heart sound present, no gallops, no murmurs and no rubs GI Palpation (GI): Soft to palpation Back/Spine/Pelvis Other: unremarkable Skin General skin exam: no rashes or lesions noted Neuro General: patient oriented x3 Extrem General: Yes normal to inspection Psych Mental Status: mental status grossly normal Assessment & Plan Assessment & Plan (1) Tachycardia: Code(s): R00.0 - Tachycardia, unspecified Plan EKG with sinus rhythm at 85/Min; lowered QRS complex in the limb leads; cannot exclude old anterior infarct, but could be from body habitus; normal MD and corrected QT. Holter monitor shows underlying sinus rhythm, 88/Min; occasional PVCs with a burden of 0.25%. Patient described episodes of tachycardia but no clear findings on Holter. We can do longer monitoring for about 2 weeks time as she states the episodes are intermittent. Need to evaluate for atrial arrhythmias like atrial fibrillation. We will also get an echocardiogram for cardiac function assessment including valvular structure and function. Follow-up after testing. Discussed with significant other who came for appointment. Orders: Orders ECG 14 day holter monitor Today R00.0 - Tachycardia, unspecified, R00.2 - Palpitations CA echo transthoracic complete Today I25.10 - Atherosclerotic heart disease of [place] coronary artery without angina pectoris, R00.0 - Tachycardia, unspecified Coding Level of Care Code New Pt Level 3 (28371) Diagnoses Tachycardia R00.0
== END 2023-04-05 15:19 | disposition home or self-care (01) ==
PROVIDERS: PCP Nurse Practitioner Family; Visit Provider Internal Medicine
DX: R00.0 Tachycardia, unspecified (principal)
CPT/HCPCS: 99203

== ENCOUNTER → 2023-04-05 14:51 | Outpatient (BNVA) | payer MEDICARE, SELFPAY | PROVIDERS: PCP Nurse Practitioner Family; Visit Provider Internal Medicine | DX: R00.0 Tachycardia, unspecified (principal) | CPT/HCPCS: 99202 ==

== ENCOUNTER 2023-04-07 14:54 | Outpatient (AMB) | payer MEDICARE, SELFPAY ==
[2023-04-07 15:02] VITALS: BP 96/60; PULSE 105; O2SAT 91; BMI 14.2
--- NOTE | 2023-04-07 15:02 | HO.NEPHOV ---
HPI HPI Comments History of Present Illness Details 77-year-old female presents today to follow-up on diabetes. Medical history significant for diabetes mellitus, intermittent palpitations-will be seeing [facility], underweight, pulmonary emphysema-followed by [place] [facility]. Patient reports that she is compliant with her metformin and she is followed by [facility] endocrinology for diabetes Epistaxis last week Sinus infections 3 x in 2 years [facility] Medical History (Updated 04/07/23 @ 15:19 by Vlad Carmona MD) Hypoxemia Pulmonary emphysema Pneumothorax Diabetes mellitus with microalbuminuria, without long-term current use of insulin Vaccination refused by patient Underweight Intermittent palpitations Diabetes mellitus with hyperglycemia, without long-term current use of insulin Hx of fracture of wrist H/O fracture of wrist Surgical History (Updated 04/07/23 @ 15:05 by Kamille Oglesby MA) H/O wrist surgery History of femoral hernia repair Family History Father Diabetes mellitus Mother Essential hypertension Sister Breast cancer Household Members: Significant Other Housing: House Do you presently have visiting nurse or other home services: No Alcohol intake: never Patient Tobacco Use Status: Never used Tobacco e-Cigarette/Vaping Use: Never Used Advance Directives Date on File: 06/16/22 service: No Current occupational status: retired Cognitive needs: No Hearing needs: No Vision needs: No Vital Signs 04/07/23 15:02 Height 5 ft 3 in Weight 80 lb 2 oz BMI 14.2 BP 96/60 Blood Pressure Location Lt brachial Position Sitting Pulse 105 H Pulse Source Pulse Oximeter Pulse Oximetry (%) 91 L Oxygen Delivery Method Room Air Intake Medication List - Last Reconciled 04/07/23 by Vlad Carmona MD ascorbic acid (vitamin C) 500 mg PO DAILY biotin 1 mg PO DAILY blood sugar diagnostic ([employer] Ultra Blue Test Strip) Check fasting blood sugar daily at varied time blood-glucose meter As directed- poc daily at varied time cholecalciferol (vitamin D3) (Vitamin D3) 10 mcg PO DAILY lancets ([employer] Delica Lancets) Check blood sugar daily at varied time losartan 12.5 mg (1/2 x 25 mg) PO .evening lutein 20 mg PO DAILY magnesium citrate 125 mg PO BEDTIME metformin 500 mg PO BID sv-knq-vergl-calcium carb-K1 400 mcg-500 mg calcium-20 mcg (Women's 50 Plus Multivitamin) 1 tab PO DAILY Physical Exam Vital Signs: Last Vital Signs Pulse 105 H 04/07/23 15:02 BP 96/60 04/07/23 15:02 Pulse Ox 91 L 04/07/23 15:02 Oxygen Delivery Method Room Air 04/07/23 15:02 BMI result Body Mass Index 14.2 Const General: comfortable; No acute distress Nutritional Appearance: well nourished Orientation/consciousness: patient oriented x3 HEENT Head: No normal to inspection Mouth: moist mucous membranes Eyes General: appearance normal, both eyes and all related structures Visual Bolanos: normal visual bolanos by confrontation Neck Neck: Yes supple and Yes no JVD Resp Effort & Inspection: normal respiratory effort and respiratory effort not decreased Auscultation: rhonchi Cardio Jugular venous distension: no JVD Palpation: no palpable S3 and no palpable S4 Heart sounds: no rubs GI Inspection: Yes normal to inspection Palpation (GI): Soft to palpation Percussion: Yes normal to percussion Auscultation: normal bowel sounds General: Yes no CVA tenderness Back/Spine/Pelvis Back: no CVA tenderness Skin General skin exam: no petechiae and no purpura Neuro General: patient oriented x3 and no focal motor deficits Extrem General: No clubbing and No edema Results Reviewed Results Reviewed: Urine microalbumin creatinine ratio of 1205 mg Assessment & Plan Assessment & Plan (1) Proteinuria: Code(s): R80.9 - Proteinuria, unspecified Plan Elderly woman with diabetes mellitus and significant proteinuria of more than 1 g. This may be due to underlying diabetic kidney disease. However other glomerular causes should be ruled out especially with a history of epistaxis. I ordered a serological workup as noted below. In the meantime I will order a small dose of losartan 12.5 mg. Given the degree of proteinuria she will benefit from YANN inhibition in an attempt to preserve the renal function. I have explained this to her. Orders: Orders Complement C3 04/07/23 R80.9 - Proteinuria, unspecified Protein Electrophoresis, Serum 04/07/23 R80.9 - Proteinuria, unspecified Creatinine Urine 04/07/23 R80.9 - Proteinuria, unspecified UA and rflx microscopic 04/07/23 R80.9 - Proteinuria, unspecified OLIVER Reflex Titer and Pattern 04/07/23 R80.9 - Proteinuria, unspecified Neutrophil Cytoplasma Ab 04/07/23 R80.9 - Proteinuria, unspecified Myeloperoxidase Antibody 04/07/23 R80.9 - Proteinuria, unspecified Complement C4 04/07/23 R80.9 - Proteinuria, unspecified Total Protein Urine Random 04/07/23 R80.9 - Proteinuria, unspecified Medications: New losartan 12.5 mg (1/2 x 25 mg) PO .evening 30 tabs 2RF Coding Level of Care Code New Pt Level 4 (53875) Diagnoses Proteinuria R80.9
== END 2023-04-07 15:31 | disposition home or self-care (01) ==
LOC: HO.HKA 14:54
PROVIDERS: PCP Nurse Practitioner Family; Visit Provider Internal Medicine Hypertension Specialist
DX: R80.9 Proteinuria, unspecified (principal)
CPT/HCPCS: 99204

== ENCOUNTER → 2023-04-07 14:54 | Outpatient (BNVA) | payer MEDICARE, SELFPAY | PROVIDERS: PCP Nurse Practitioner Family; Visit Provider Internal Medicine Hypertension Specialist | DX: R80.9 Proteinuria, unspecified (principal) | CPT/HCPCS: 99202 ==

== ENCOUNTER 2023-05-04 15:02 | Outpatient (AMB) | payer MEDICARE, SELFPAY ==
[2023-05-04 15:06] VITALS: BP 96/60; PULSE 72; O2SAT 90; BMI 13.8
--- NOTE | 2023-05-04 15:06 | AM.OFFVISMDC ---
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: No Allergies sulfa Allergy (Unknown, Verified 05/04/23 15:26) diarrhea midazolam [From Versed] Adverse Reaction (Severe, Verified 05/04/23 15:26) bradycardia Medication List - Last Reconciled 05/04/23 by NAVID Arboleda ascorbic acid (vitamin C) 500 mg PO DAILY biotin 1 mg PO DAILY blood sugar diagnostic ([place] Ultra Blue Test Strip) Check fasting blood sugar daily at varied time blood-glucose meter As directed- poc daily at varied time cholecalciferol (vitamin D3) (Vitamin D3) 10 mcg PO DAILY lancets ([employer] Delica Lancets) Check blood sugar daily at varied time losartan 12.5 mg (1/2 x 25 mg) PO .evening lutein 20 mg PO DAILY magnesium citrate 125 mg PO BEDTIME metformin 500 mg PO BID ua-ttb-gmqea-calcium carb-K1 400 mcg-500 mg calcium-20 mcg (Women's 50 Plus Multivitamin) 1 tab PO DAILY HPI AWV HPI Details Patient is a 77-year-old female who presents today for subsequent wellness visit. Today we discussed patient's need for colon cancer screening-she is interested in a Cologuard. Also discussed her need in pneumonia and tetanus vaccines, patient has declined such vaccines. Mammogram normal 10/2022 with [facility]. 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 [place] of care was reviewed with the patient and she was provided with a screening schedule. Healthcare proxy and MOLST forms on file. [facility] Medical History (Updated 05/04/23 @ 17:26 by NAVID Arboleda) Sepsis Pneumonia Acute sinusitis Hypoxemia Pulmonary emphysema Pneumothorax Diabetes mellitus with microalbuminuria, without long-term current use of insulin Vaccination refused by patient Underweight Intermittent palpitations Diabetes mellitus with hyperglycemia, without long-term current use of insulin Hx of fracture of wrist H/O fracture of wrist Surgical History H/O wrist surgery History of femoral hernia repair Family History Father Diabetes mellitus Mother Essential hypertension Sister Breast cancer Social History Household Members: Significant Other Housing: House Do you presently have visiting nurse or other home services: No Alcohol intake: never Patient Tobacco Use Status: Never used Tobacco e-Cigarette/Vaping Use: Never Used Advance Directives Date on File: 06/16/22 service: No Current occupational status: retired Cognitive needs: No Hearing needs: No Vision needs: No Questionnaire Medicare Wellness Checkup [age] What gender do you identify with?: female During the past 4 weeks, how much have you been bothered by emotional problems such as feeling anxious, depressed, irritable, sad or downhearted, and blue?: not at all During the past 4 weeks, has your physical & emotional health limited your social activities with family, friends, neighbors, or groups?: moderately During the past 4 weeks, how much bodily pain have you generally had?: very mild pain (left shoulder pain ) During the past 4 weeks, was someone available to help you if you needed & wanted help?: yes, as much as I wanted During the past 4 weeks, what was the hardest physical activity you could do for at least 2 minutes?: moderate Can you get to places out of walking distance without help? (For eg., can you travel alone on buses, taxis or drive your car?): Yes Can you go shopping for groceries or clothes without someone's help?: Yes Can you prepare your own meals?: Yes Can you do your housework without help?: Yes Because of any health problems, do you need the help of another person with your personal care needs such as eating, bathing, dressing or getting around the house?: No Can you handle your own money without help?: Yes During the past 4 weeks, how would you rate your health in general?: fair During the past 4 weeks how have things been going for you?: good & bad parts about equal Are you having difficulties driving your car?: no Do you always fasten your seat belt when you are in a car?: yes, usually During past 4 weeks, have you been bothered by the following: never: Falling or dizzy when standing up, Sexual problems?, Trouble eating well?, Teeth or denture problems? and Problems using the telephone? and sometimes: Tiredness or fatigue? Have you fallen 2 or more times in the past year?: No Are you afraid of falling?: Yes Are you a smoker?: no During the past 4 weeks, how many drinks of wine, beer, or other alcoholic beverages did you have?: no alcohol at all Do you exercise for about 20 minutes 3 or more times a week?: yes, some of the time Have you been given information to help with the following?: yes: Hazards in your house that might hurt you? and yes: Keeping track of your medications? How often do you have trouble taking medicines the way you have been told to take them?: I always take medicine as prescribed How confident are you that you can control & manage most of your health problems?: somewhat confident What is your race?: White Mini Mental State Exam (MMSE) Orientation What is the (year) (season) (date) (day) (month)?: year, season, date, day and month Score Score: 5 Activity of Daily Living Bathing - sponge bath, tub bath or shower: receives no assistance (gets in/out by self, if usual bathing means Dressing - getting clothes from closets & drawers, including inner/outer garments & fasteners.: gets clothes & gets completely dressed without help Toileting - going to the 'toilet room' for urine/bowel elimination & cleaning self/arranging clothes: goes to toilet room, cleans self, arranges clothes without help Transfer: moves in & out of bed and chair without help (may use support object) Continence: controls urination/bowel movements completely by self Feeding: feeds self without help Total Score: 0 Information obtained from: patient Using telephone: independent Traveling: independent Shopping: independent Preparing meals: independent Housework: independent Taking medicine: independent Managing money: independent PHQ-9 Over the last 2 weeks, how often have you been bothered by any of the following problems? 1. Little interest or pleasure in doing things: not at all 2. Feeling down, depressed, or hopeless: not at all 3. Trouble falling or staying asleep, or sleeping too much: several days 4. Feeling tired or having little energy: not at all 5. Poor appetite or overeating: not at all 6. Feeling bad about yourself - or that you are a failure or have let yourself or your family down: not at all 7. Trouble concentrating on things, such as reading the newspaper or watching television: not at all 8. Moving or speaking so slowly that other people could have noticed. Or the opposite - being so fidgety or restless that you have been moving around a lot more than usual: not at all 9. Thoughts that you would be better off or of hurting yourself in some way: not at all Total score: 1 Depression Screening Interpretation: Negative Depression Screening Done: Yes 24878 - PHQ-9 Billing: Yes Source: Developed by Drs. Elias Gautam, Manasa Benedict, Lizandro Thomas and colleagues, with an educational lauren from [employer]. Physical Exam Vital Signs: Last Vital Signs Pulse 72 05/04/23 15:06 BP 96/60 05/04/23 15:06 Pulse Ox 92 05/04/23 15:26 Oxygen Delivery Method Room Air 05/04/23 15:26 BMI result Body Mass Index 13.8 Const General: cooperative and no acute distress Orientation/consciousness: patient oriented x3 HEENT Other: Whisper test: pass Neuro Other: Balance: Normal Get up and walk: unable to Romberg: negative Tandem gait: unable to General: patient oriented x3 Results AMB Hemoglobin A1c AMB Hemoglobin A1c 10.4 % Last Edit by ALICE Domingo on 05/04/23 15:35 Results Reviewed Results Reviewed: Laboratory Last Values Hgb A1c (Clinic) 10.4 % (4.0-6.0) H 05/04/23 15:35 Assessment & Plan Assessment & Plan (1) Microalbuminuria: Code(s): R80.9 - Proteinuria, unspecified Plan: Continue to follow-up with nephrology Dr. Carmona (2) Pulmonary emphysema: Comment: Physical examination and the chest x-ray on 07/11/2022, indicate hyperinflated lungs, c/w pulmonary emphysema. Patient has had no pulmonary function testing. I explained to her about the chest x-ray finding, and my clinical impression. She should have pulmonary function test, which will be done before her next visit. Then we can decide if she would benefit from any bronchodilator treatment. Code(s): J43.9 - Emphysema, unspecified Plan: Continue to follow-up with Dr. Garcia (3) Diabetes mellitus with microalbuminuria, without long-term current use of insulin: Comment: Currently being seen by Dr. Sue Vincent at [facility] endocrine clinic Code(s): E11.29 - Type 2 diabetes mellitus with other diabetic kidney complication; R80.9 - Proteinuria, unspecified Plan: A1c 10.4 today, goal less than 7 Diabetes is managed by [facility] - currently on metformin 500 mg b.i.d. - patient reports that she saw Endocrinology about 1 month ago, patient is not interested in insulin at this time, will increase metformin to 1 tablet t.i.d. with meals - patient was encouraged to notify her endocrinology about high A1c today. Reinforced low-carbohydrate diet (4) Vaccination refused by patient: Code(s): Z28.21 - Immunization not carried out because of patient refusal Plan: Declined pneumonia and tetanus vaccines (5) Underweight: Code(s): R63.6 - Underweight Plan: Patient reports that she has been improving her diet lately (6) Intermittent palpitations: Code(s): R00.2 - Palpitations Plan: Patient is followed by [facility] (7) Adult general medical exam: Code(s): Z00.00 - Encounter for general adult medical examination without abnormal findings Plan: Repeat in 1 year (8) Screening for colon cancer: Code(s): Z12.11 - Encounter for screening for malignant neoplasm of colon Plan: Cologuard ordered Orders: Orders AMB Hemoglobin A1c Today E11.29 - Type 2 diabetes mellitus with other diabetic kidney complication, R80.9 - Proteinuria, unspecified Referrals Cologuard Test Z12.11 - Encounter for screening for malignant neoplasm of colon, Z12.12 - Encounter for screening for malignant neoplasm of rectum Medications: Changed From metformin 500 mg PO BID E11.29 - Type 2 diabetes mellitus with other diabetic kidney complication, R80.9 - Proteinuria, unspecified To metformin 500 mg PO TID 30 tabs 0RF E11.29 - Type 2 diabetes mellitus with other diabetic kidney complication, R80.9 - Proteinuria, unspecified Quality Reporting (2019) Depression/Bipolar (159/160/161/177) PHQ-9: Total score: 1 Coding Level of Care Code Medicare Subsequent (G0439) Diagnoses Microalbuminuria R80.9 Pulmonary emphysema J43.9 Diabetes mellitus with microalbuminuria, without long-term current use of insulin E11.29; R80.9 Vaccination refused by patient Z28.21 Underweight R63.6 Intermittent palpitations R00.2 Adult general medical exam Z00.00 Screening for colon cancer Z12.11 CPT Codes Advance Care Planning - Advance Care Planning discussion: On file, no changes ([id number]) Advance Care Planning - Time spent: 1-15 minutes, on File ([id number]) Advance Care Planning Advance Care Planning discussion: On file, no changes Date of discussion: 05/04/23 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
[2023-05-04 15:26] VITALS: O2SAT 92
== END 2023-05-04 15:48 | disposition home or self-care (01) ==
PROVIDERS: PCP Nurse Practitioner Family; Visit Provider Nurse Practitioner Family
DX: Z00.00 Encounter for general adult medical examination without abnormal findings (principal); E11.29 Type 2 diabetes mellitus with other diabetic kidney complication; R80.9 Proteinuria, unspecified; J43.9 Emphysema, unspecified; R00.2 Palpitations
CPT/HCPCS: 1123F; 83036; 99213; G0439

== ENCOUNTER → 2023-06-02 14:00 | Outpatient (REF) | payer MEDICARE, SELFPAY ==
--- NOTE | 2023-06-02 14:03 | CA_ITS ---
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 Study Quality: Technically Difficult ECG Rhythm: Sinus Conclusions: - The left ventricular systolic function is normal. The calculated ejection fraction is 62% by biplane method. - No obvious valvular pathology seen on this study. - Mild pulmonary hypertension is present. Findings Procedure Information The study quality is limited by patients body habitus. Left Ventricle Normal left ventricular cavity size. There is normal left ventricular wall thickness. The left ventricular systolic function is normal. The calculated ejection fraction is 62% by biplane method. There is no evidence of regional wall motion abnormalities. Evidence suggests grade I (mild) diastolic dysfunction. Right Ventricle The right ventricle was not well visualized. There is normal right ventricular systolic function. Atria Both atria are normal in size. Aortic Valve There is a normal trileaflet aortic valve. There is no aortic valve stenosis. There is no aortic valve regurgitation. Mitral Valve The mitral valve appears normal. There is no mitral valve regurgitation. There is no mitral valve stenosis. Pulmonic Valve The pulmonic valve is likely normal. Tricuspid Valve There is mild tricuspid valve regurgitation. Mild pulmonary hypertension is present. Great Vessels The asc aorta is normal in size. Venous The inferior vena cava is normal in size and collapses greater than 50% with inspiration. Pericardium/Pleural There is no evidence of pericardial effusion. Prior Study Comparison No prior study available for comparison. Recommendations, Care & Conclusions No obvious valvular pathology seen on this study. Measurements 2D Linear Measurements IVSd: 0.77 0.6-0.9/0.6-1.0 cm LVIDd: 3.03 3.9-5.3/4.2-5.9 cm LVIDd Index: 2.20 2.4-3.2/2.2-3.1 cm/m2 LVIDs: 1.59 2.0-3.6 cm LVPWd: 1.05 0.7-1.1 cm LA Diam: 1.90 2.7-3.8/3.0-4.0 cm LAIDs Index: 1.38 1.5-2.3 cm/m2 LV Mass: 89.64 67-162/88-224 g LV Mass Index: 64.96 43-95/49-115 g/m2 LVOT Diam: 1.80 3.0+(-)1.3 cm 2D Systolic Function EF 4C: 60.90 >55% EF 2C: 64.10 >55% EF BiP: 61.90 >55% Mitral Valve MV Pk E: 0.54 MV PK A: 0.72 MV Decel Time: 153.00 E/A: 0.80 E'Lateral: 6.31 E'Medial: 6.31 E/E' Med: 8.60 E/E' Lat: 8.60 PHT: 45.00 MVA PHT: 4.89 Decel [place]: 3.55 Aortic Valve AoV Pk Lawrence: 0.93 AoV Mn Lawrence: 0.71 AoV VTI: 0.19 AoV Pk Grad: 3.00 Aov Mn Grad: 2.00 GAB Cont.VTI: 2.02 LVOT LVOT Pk Lawrence: 0.76 LVOT Mn Lawrence: 0.53 LVOT VTI: 0.15 LVOT Pk Grad: 2.00 LVOT Mn Grad: 1.00 LVOT Diam: 1.80 LVOT Area: 2.54 Diastolic Function MV Pk E: 0.54 MV Pk A: 0.72 E/A: 0.80 E'Medial: 6.31 E/E' Med: 8.60 E' Laterial: 6.31 E/E' Lat: 8.60 Right Ventricle TAPSE (mm): 19.00 TVS' Lawrence: 10.90 Tricuspid Valve TR Pk Lawrence: 3.05 TR Pk Grad: 37.00 RA Press: 3.00 RVSP: 40.00 Great Vessels Aorta Sinus of Valsalva: 3.70 2.0-3.5 cm Ao Asc: 3.40 2.1-3.4 cm Pulmonary Valve PV Pk Lawrence: 0.61 Peak PV Grad: 1.00 Updated in Other Vendor System with Status of Final Garfield Rapp MD electronically signed on 06/03/2023 2:47:57 PM with status of Final
--- NOTE | 2023-06-02 14:03 | HM_ITS ---
Conclusion: 1. Patient was monitored for total period of 14 days 2. Baseline was normal sinus rhythm with average heart rate of 90 beats per minute 3. No significant pauses noted 4. Occasional PACs noted 5. Twenty-four episodes of SVT, the fastest at 195 beats per minute and longest at 24 beats 6. Patient reported 1 symptom of palpitation with feeling faint correlating with SVT MTDD
== END ==
LOC: HO.CARD 14:00
PROVIDERS: PCP Nurse Practitioner Family; Visit Provider Internal Medicine
DX: R00.2 Palpitations (principal); R00.0 Tachycardia, unspecified; I25.10 Atherosclerotic heart disease of native coronary artery without angina pectoris
CPT/HCPCS: 93246; 93306

== ENCOUNTER → 2023-06-02 14:03 | Outpatient (BNV) | payer MEDICARE, SELFPAY | PROVIDERS: PCP Nurse Practitioner Family; Visit Provider Internal Medicine | DX: I47.10 Supraventricular tachycardia, unspecified (principal) | CPT/HCPCS: 93248; 93306 ==

== ENCOUNTER 2023-06-22 15:13 | Outpatient (AMB) | payer MEDICARE, SELFPAY ==
--- NOTE | 2023-06-22 15:03 | A.OFFVIS_ITS ---
Intake Intake Visit Reasons: fu test results Mail Weigher Required: No Allergies sulfa Allergy (Unknown, Verified 06/22/23 15:06) diarrhea midazolam [From Versed] Adverse Reaction (Severe, Verified 06/22/23 15:06) bradycardia Medication List - Last Reconciled 06/22/23 by Dorys Munson [employer]ALE STACKER-C ascorbic acid (vitamin C) 500 mg PO DAILY biotin 1 mg PO DAILY blood sugar diagnostic (Octane LendingTouch Ultra Blue Test Strip) Check fasting blood sugar daily at varied time blood-glucose meter As directed- poc daily at varied time cholecalciferol (vitamin D3) (Vitamin D3) 10 mcg PO DAILY lancets (Octane LendingTouch Delica Lancets) Check blood sugar daily at varied time losartan 12.5 mg (1/2 x 25 mg) PO .evening lutein 20 mg PO DAILY magnesium citrate 125 mg PO BEDTIME metformin 500 mg PO TID metoprolol succinate ER 12.5 mg (1/2 x 25 mg) PO DAILY 30 days mf-dwl-fqema-calcium carb-K1 400 mcg-500 mg calcium-20 mcg (Women's 50 Plus Multivitamin) 1 tab PO DAILY HPI fu test results HPI Details Parisa is a 77-year-old female with past medical history of being underweight, diabetes, emphysema who was recently seen for report of heart palpitations. She underwent a 2 week Holter and now is having a telephone visit follow-up. Today she reports that she fell in her kitchen 2 days ago due to weakness. She continues to have discomfort in her back and pelvic region but states she is able to walk. If she is still sore tomorrow she will seek emergency medical care. She tells me that feeling weak is not unusual for her. She says she had cut out carbs and lost a lot of weight. Now she is only eating a few carbs daily. She will feel heart palpitations at times, mostly if she bends over and occurring randomly. The episodes are brief and rapid. No presyncope, syncope. She did not fall because of heart palpitations. No chest discomfort at rest or with activity. No concerning shortness of breath, lightheadedness, PND, orthopnea or edema. Compliant with meds. [facility] Medical History Sepsis Pneumonia Acute sinusitis Hypoxemia Pulmonary emphysema Pneumothorax Diabetes mellitus with microalbuminuria, without long-term current use of insulin Vaccination refused by patient Underweight Intermittent palpitations Diabetes mellitus with hyperglycemia, without long-term current use of insulin Hx of fracture of wrist H/O fracture of wrist Surgical History H/O wrist surgery History of femoral hernia repair Family History Father Diabetes mellitus Mother Essential hypertension Sister Breast cancer Social History Household Members: Significant Other Housing: House Do you presently have visiting nurse or other home services: No Alcohol intake: never Patient Tobacco Use Status: Never used Tobacco e-Cigarette/Vaping Use: Never Used Advance Directives Date on File: 06/16/22 service: No Current occupational status: retired Cognitive needs: No Hearing needs: No Vision needs: No Review of Systems Const Details: Fell 2 days ago and has some back and hip area discomfort. Able to walk. All systems reviewed & are unremarkable except as noted in HPI and below Reports weakness Card Denies chest pain, Reports rapid heart rate, Reports palpitations and Denies d yspnea on exertion Resp Denies dyspnea on exertion Neuro Details: No dizziness or presyncope Reports weakness Endo Reports palpitations Assessment & Plan Assessment & Plan (1) Palpitations: Code(s): R00.2 - Palpitations Plan: Report of heart palpitations. Holter monitor done 06/02/2023 for 14 days showed sinus rhythm with average heart rate 90, 24 episodes of SVT, fastest 195 beats per minute and longest 24 beats. Patient is report of palpitations did correlate with SVT. Echocardiogram done 06/02/2023 showed EF 62%, normal valves, mild pulmonary hypertension. Test results reviewed with her in detail. She tells me she has been having heart palpitations like this since she was in her 30s. She was told in the past that she had SVT. She has currently not on any medications to control this rhythm. Her blood pressure does run on the low side. She did have a recent fall which she describes as related to generalized weakness, not palpitations or lightheadedness. Will have her start on metoprolol XL 12.5 mg daily. Instructed to call if she is having any lightheadedness with this medication. Reviewed the need to cut out all caffeine which she says she already has done. Spent time reviewing vagal maneuvers with her in detail. Emergency care if needed for sustained rapid heart palpitations. Cardiology follow-up in 2 months, sooner if needed. (2) Supraventricular tachycardia: Code(s): I47.10 - Supraventricular tachycardia, unspecified Plan: As above (3) Discomfort of back: Code(s): M54.9 - Dorsalgia, unspecified Plan: Patient reports having a fall in her kitchen 2 days ago. She said she had weakness in her legs and was reaching for something then lost her balance. She is experiencing discomfort in her back and pelvic region. She states she is able to ambulate. She tells me that if she continues to have discomfort by tomorrow she will be seeking medical attention. Plan Time spent on chart review, documentation, interview Medications: New metoprolol succinate ER 12.5 mg (1/2 x 25 mg) PO DAILY 30 days 15 tabs 5RF Telehealth Telehealth Location of provider rendering services: practice address Location of patient: address on file Patient Identification confirmed using: Name, : Yes Telehealth method: voice only Patient verbally consented to treatment: Yes Patient verbally consented to billing insurance company: Yes Patient informed of any privacy concerns related to visit: Yes Coding Level of Care Code Est Pt Level 3 (75929) Diagnoses Palpitations R00.2 Supraventricular tachycardia I47.10 Discomfort of back M54.9 Time Spent (min) 20
== END 2023-06-22 16:15 | disposition home or self-care (01) ==
LOC: HO.HCS 15:13
PROVIDERS: PCP Nurse Practitioner Family; Visit Provider Nurse Practitioner Family
DX: R00.2 Palpitations (principal); I47.10 Supraventricular tachycardia, unspecified; M54.9 Dorsalgia, unspecified
CPT/HCPCS: 99213

== ENCOUNTER → 2023-06-22 15:13 | Outpatient (BNVA) | payer MEDICARE, SELFPAY | PROVIDERS: PCP Nurse Practitioner Family; Visit Provider Nurse Practitioner Family | DX: I47.10 Supraventricular tachycardia, unspecified (principal); M54.9 Dorsalgia, unspecified; R00.2 Palpitations | CPT/HCPCS: 99212 ==

== ENCOUNTER 2023-07-01 12:35 | Emergency (ER) | payer MEDICARE, SELFPAY ==
--- NOTE | ~2023-07-01 | XR_ITS ---
EXAMINATION: XR CHEST CLINICAL INFORMATION: SOB and wheezing COMPARISON: Chest x-ray 07/11/2022 TECHNIQUE: Frontal view of the chest was obtained. FINDINGS: The lungs are well-expanded and clear of acute pneumonic process. Heart size and pulmonary vascularity is normal. No gross bony abnormality seen. XR/XR chest 1V IMPRESSION: Unremarkable chest exam.
--- NOTE | ~2023-07-01 | CT_ITS ---
EXAMINATION: CT PELVIS WITHOUT CONTRAST CLINICAL INFORMATION: Sacral pain COMPARISON: None available. TECHNIQUE: Helical scanning was performed with submillimeter collimation through the pelvis. Sagittal and coronal multiplanar 2-D reconstructions were obtained. This CT examination was performed using dose optimization techniques as appropriate, variously including the following: *Automated exposure control *Adjustment of mA and/or kV according to patient size (this includes techniques or standardized protocols for targeted exams where dose is matched to indication/reason for exam; i.e. extremities or head) *Use of iterative reconstruction technique DLP: 324, bowel distention. mGy-cm FINDINGS: PELVIS: There is moderate stool, diverticuli and gas seen in the colon without distention. There are no radiopaque renal or bladder calculi on the visualized images. The bladder is distended without wall thickening. No free air or free fluid seen on the pelvic exam. OSSEOUS STRUCTURES: There is bilateral L5-S1 and L4-L5 facet joint arthropathy and hypertrophy. No aggressive lytic or sclerotic process seen. CT/CT pelvis wo IV con IMPRESSION: Unremarkable CT pelvis without contrast. Especially there is no visible fracture or bony abnormality involving the sacrum or the lower lumbar spine. Constipation with colonic diverticulosis most prominent in the sigmoid region.
--- NOTE | ~2023-07-01 | CT_ITS ---
EXAMINATION: CT LUMBAR SPINE WITHOUT CONTRAST CLINICAL INFORMATION: Lumbar pain and bowel retention. COMPARISON: None available. TECHNIQUE: Multidetector helical imaging acquired in the axial plane with generation of reformatted acquisitions. This CT examination was performed using dose optimization techniques as appropriate, variously including the following: *Automated exposure control *Adjustment of mA and/or kV according to patient size (this includes techniques or standardized protocols for targeted exams where dose is matched to indication/reason for exam; i.e. extremities or head) *Use of iterative reconstruction technique DLP; 324 mGy-cm FINDINGS: Diffuse bony demineralization noted. There is a mild anterolisthesis at the L4 on L5 level. There is an age-indeterminate superior endplate compression fracture deformity with a mild 40% loss of vertebral body height at the L3 level. Very mild osseous retropulsion visible. There is mild vacuum disc phenomenon at the L2-L3 level with an inferior endplate concavity and large Schmorl's node at the L2 level, chronic in appearance, with mild marginal sclerosis. No fractures are identified elsewhere. Mild leftward lumbar spinal curvature evident. L1-L2: Left paracentral disc protrusion with minimal impression upon the ventral thecal sac. No central canal stenosis or foraminal narrowing. L2-L3: Mild anterolisthesis and diffuse disc bulge with exdr-rp-txhbqawe facet arthropathy and mild central canal stenosis. Bulging disc and endplate spurring mildly encroach upon the neural foramina. L3-L4: Generalized disc bulge and moderate facet arthropathy with mild central canal stenosis and mild foraminal narrowing. L4-L5: Mild anterolisthesis and severe facet arthropathy with thickening of ligamentum flavum. Zedf-gx-wvowwutl central canal stenosis and foraminal narrowing with a diffuse disc bulge. L5-S1: Mild disc bulge and severe facet arthropathy without central canal stenosis. Patent neural foramina. Significant sigmoid colonic diverticulosis noted with a large amount of stool in the imaged colon. The lung bases are clear, though mild bronchiectasis is visible with areas of soft tissue impaction in the distal bronchiolar airways. CT/CT lumbar spine wo IV con IMPRESSION: Age-indeterminate mild superior endplate compression fracture at the L3 level. No obvious paraspinal soft tissue inflammatory changes. Mild retropulsion of the superior endplate. Chronic-appearing inferior endplate compression deformity and large Schmorl's node at the L2 level. Significant bony demineralization. Multilevel spondylosis. Focal left paracentral disc protrusion at the L1-L2 level. Mild central canal stenosis at the L2-L3 and L3-L4 levels. Mild anterolisthesis and severe facet arthropathy with dgaw-ie-nehwckhx central canal stenosis and foraminal narrowing at the L4-L5 level. Severe facet arthropathy at the L5-S1 level. Extensive sigmoid colonic diverticulosis and large stool burden. Mild bronchiectasis in the lower lobes with areas of soft tissue impaction in the distal bronchiolar airways.
[2023-07-01 12:39] VITALS: BP 137/81; PULSE 98; RESP 16; TEMP 37.2; O2SAT 90; BMI 14.2
--- NOTE | 2023-07-01 12:39 | ED.FALL ---
HPI - Fall General Chief Complaint: Back Pain/Injury Stated Complaint: fell / back pain Time Seen by Provider: 07/01/23 13:59 Source: patient Mode of arrival: ambulatory Limitations: no limitations History of Present Illness HPI Narrative: 77 year old femal w/ BMI of 14.2, hypoxemia w/ PRN 2L at home as needed, diabetes, presents s/p fall two days ago w/ lower back, rectal numbness, stool retention X 2 days. Patient reports she doesn't quite know how she fell but when she fell she fell right on her lower back, and ? hit her head unclear no LOC however. Reports is having difficulty in walking. Before the fall she was having diarrhea but now states she cant poop she took stool softners and had a bM she was not aware of until she looked in the toiled. Tells me her rectum is very numb and so is the surrounding area and pelvis. Denies hx of incontinence. October of had palpitations prior to fall but unclear. Not n thinners. Related Data Home Medications Medication Instructions Recorded Confirmed ascorbic acid (vitamin C) 500 mg 500 mg PO DAILY 05/26/20 05/04/23 capsule biotin 1 mg capsule 1 mg PO DAILY 05/26/20 05/04/23 lutein 20 mg capsule 20 mg PO DAILY 05/26/20 05/04/23 magnesium citrate 125 mg capsule 125 mg PO BEDTIME 05/26/20 05/04/23 lggnodcb-txg-xpomk ac 400 1 tab PO DAILY 05/26/20 05/04/23 mcg-calcium carb 500 mg-vit K1 20 mcg tablet (Women's 50 Plus Multivitamin) cholecalciferol (vitamin D3) 10 10 mcg PO DAILY 07/11/22 05/04/23 mcg (400 unit) tablet (Vitamin D3) Previous Rx's Medication Instructions Recorded blood sugar diagnostic (Thinking Screen MediaTouch #100 ea 07/08/20 Ultra Blue Test Strip) blood-glucose meter #1 ea 07/08/20 lancets 33 gauge (OneTouch Delica #100 ea 07/08/20 Lancets) losartan 25 mg tablet 12.5 mg (1/2 x 25 mg) PO .evening 04/07/23 #30 tabs metformin 500 mg tablet 500 mg PO TID #30 tabs 05/04/23 metoprolol succinate 25 mg 12.5 mg (1/2 x 25 mg) PO DAILY 30 06/22/23 tablet,extended release 24 hr days #15 tabs Allergies Allergy/AdvReac Type Severity Reaction Status Date / Time sulfa Allergy Unknown diarrhea Verified 07/01/23 12:39 midazolam [From Versed] AdvReac Severe bradycardia Verified 07/01/23 12:39 Review of Systems Review of Systems: Constitutional : No Weight loss, No Fever, No Chills, ENT/Mouth : No Hearing loss, No Ear Pain, No Nasal Congestion, No Sinus Pain, No Hoarseness, No sore throat, No Rhinorrhea, No Swallowing Difficulty Cardiovascular : No Chest Pain, No SOB Respiratory : No Cough, No Dyspnea Gastrointestinal : No Nausea, No Vomiting, No Diarrhea, No abdominal Pain, No Hematochezia, No Melena Genitourinary : No Dysuria, No Urinary Frequency, No Hematuria, No Urinary Incontinence, Musculoskeletal : positive back pain Skin : No Skin Lesions, No rash Neuro : No Weakness, + Numbness, No Paresthesias, + loss of+ bowel no bladder incontinence, no saddle anesthesia Yes all other systems are reviewed and are negative [facility] Past Medical History Attestation statement: The following information was validated with the patient. Source: old records reviewed and nursing notes reviewed Medical History Sepsis Pneumonia Acute sinusitis Hypoxemia Pulmonary emphysema Pneumothorax Diabetes mellitus with microalbuminuria, without long-term current use of insulin Vaccination refused by patient Underweight Intermittent palpitations Diabetes mellitus with hyperglycemia, without long-term current use of insulin Hx of fracture of wrist H/O fracture of wrist Surgical History H/O wrist surgery History of femoral hernia repair Family History Family History Father Diabetes mellitus Mother Essential hypertension Sister Breast cancer Social History Social History Household Members: Significant Other Housing: House Do you presently have visiting nurse or other home services: No Alcohol intake: never Patient Tobacco Use Status: Never used Tobacco Smoked in Last 30 Days: No e-Cigarette/Vaping Use: Never Used Use of substances other than those prescribed or required for medical reasons: No Advance Directives: Yes Advance Directives on File: Yes Advance Directives Date on File: 06/16/22 service: No Current occupational status: retired Cognitive needs: No Hearing needs: No Vision needs: No Physical Exam Vital Signs: Vital Signs: Last Vital Signs Temp 98.0 F 07/01/23 15:16 Pulse 86 07/01/23 15:16 Resp 16 07/01/23 15:16 BP 154/89 H 07/01/23 15:16 Pulse Ox 97 07/01/23 15:16 O2 Del Method Nasal Cannula 07/01/23 15:16 O2 Flow Rate 2.5 07/01/23 15:16 BMI result Body Mass Index 14.2 vss Appearance: Alert.? Oriented X3.? No acute distress.? Head: Normocephalic, atraumatic, no step-offs or deformities Eyes: Pupils equal, round and reactive to light.? ENT: Pharynx normal.? Neck: Normal inspection.? Neck supple.? CVS: Normal heart rate and rhythm.? Pulses normal.? Respiratory: No respiratory distress.? Breath sounds normal.? Abdomen: Soft and nontender.? Skin: Skin warm and dry.? Normal skin color.? Normal skin turgor.? Extremities: No lower extremity edema.? No calf ttp. global weakness on exam Back: Midline tenderness to lower lumbar region and upper sacral region. no C-spine tenderness, full range of motion, no CVA tenderness bilaterally Rectal exam: Normal rectal tone on digital rectal examination w/ diminished sensation ( Vaishnavi PA-S special education resource teacher consent obtianed before hand) Neuro: Oriented X 3.? No motor deficit.? No sensory deficit. CN 2-12 intact Course Course Course Narrative: RME:?77 yo female w/ hx of SVT, DM, CAP here w/ back pain after falling backwards in her kitchen 2 days ago when her right leg suddenly gave out. Reports bumping the back of her head. Denies LOC. Not on AC. Able to ambulate with difficulty secondary to pain. admits to bowel retention since fall. denies urinary incontinence or retention. CT ordered in triage. Full HPI, ROS and PE to be performed by the primary ED provider. Reevaluation(s) Reevaluation #1: Chest x-ray unremarkable chest exam. CT abdomen and pelvis unremarkable pelvis without contrast. No visible fracture bony abnormality involving the sacrum or the lower lumbar spine. Constipation without colonic diverticulosis most prominent in the sigmoid region. CT lumbar spine age indeterminate mild superior endplate compression fracture of L3 no obvious paraspinal soft tissue inflammatory changes. Mild retropulsion of the superior endplate. Chronic appearing inferior endplate compression deformity at large stromal node at L2. Multilevel spondylosis focal left paracentral disc protrusion at the L1-L2 level with mild central canal stenosis at L2-L3 and L3 and L4. Central canal stenosis and foraminal narrowing at L4 and L5. Facet arthropathy at L5-S1. Will reach out to [facility] neuro spine. Time: 15:57 Reevaluation #2: Neuro Surgery from [facility] recommends STAT MRI and transfer if needed based of sx. Time: 16:08 Reevaluation #3: MRI oncall till 5, patient will likely need neuro spine eval for foraminal narrowing and numbness to rectal region. Will speak to [facility] and ask whether or not they want MRI before transfer or if they will get one there. Did confirm w/ Dr. Goodman they do not do inpatient consults. Time: 16:14 Additional Reevaluation(s): 1624 Dr. Barahona accept transfer [facility] Emergency Department, explained this to patient agreeable to plan. He recommends just transferring patient there soon as possible in obtaining MRI there. No need to call an MRI here. 1626 CBC with slight leukocytosis this could be reactive secondary to fall and or pain. Chemistry unremarkable no acute findings requiring intervention. Troponin negative. CRP slightly elevated 0.88. Medications Administered Discontinued Medications Generic Name Dose Route Start Last Admin Trade Name Prudencioq PRN Reason Stop Dose Admin Lidocaine 1 patch 07/01/23 15:38 07/01/23 15:55 Lidocaine 4 % Patch Adh..Patch TRANSDERMA 07/01/23 15:39 1 patch ONCE ONE Administration Protocol Morphine Sulfate 15 mg 07/01/23 15:38 07/01/23 15:56 Morphine Sulfate Immed Release 15 Mg Tablet PO 07/01/23 15:39 Not Given ONCE ONE Medical Decision Making Medical Decision Making MDM Narrative: 77-year-old female presents for evaluation of back pain status post fall 2 days ago now experiencing numbness in the periarea as well as incontinence of stool. This has been going on for 2 days. Having severe pain. Physical exam patient reports perirectal numbness, normal rectal tone. No numbness in the legs. Will rule out fracture/dislocation of lumbar and sacral region as this was a traumatic fall. Also some concern for cord compression or cauda equina due to patient history and physical exam. Unlikely epidural abscess. There was no head strike or loss of consciousness. Patient not on blood thinners. Unlikely traumatic injury to head, neck, chest, abdomen or pelvis. Low suspicion for ACS or PE . Patient hypoxic at baseline and has home O2 this is unlikely acute. Plan at this time labs, imaging. Differential Diagnosis Differential Diagnoses: The differential diagnosis associated with the presentation includes Will rule out fracture/dislocation of lumbar and sacral region as this was a traumatic fall. Also some concern for cord compression or cauda equina due to patient history and physical exam. Unlikely epidural abscess. There was no head strike or loss of consciousness. Patient not on blood thinners. Unlikely traumatic injury to head, neck, chest, abdomen or pelvis. Low suspicion for ACS or PE . Patient hypoxic at baseline and has home O2 this is unlikely acute. Admission/Observation Consideration of admission/observation: Escalation of care including admission/observation considered Possible Consult Healthcare Provider Management of the patient was discussed with: Poultry Husbandman Lab Data MDM Lab Attestation statement: I reviewed the patient's lab results. 07/01/23 15:47 07/01/23 15:47 Labs: Lab Results 07/01/23 Range/Units 15:47 WBC 12.1 H (4.8-10.8) X10*3/uL RBC 4.19 L (4.20-5.50) X10*6/uL Hgb 12.4 (12.0-16.0) g/dl Hct 37.4 (37.0-47.0) % MCV 89.3 (80.0-98.0) fL MCH 29.6 (27.0-33.0) pg MCHC 33.2 (31.0-35.0) g/dl RDW 15.9 (11.0-16.0) % Plt Count 320 D (160-400) X10*3/uL MPV 8.9 L (9.4-12.3) fL Immature Gran % (Auto) 0.3 (0.0-0.4) % Neut % (Auto) 84.7 H (45-73) % Lymph % (Auto) 8.2 L (20-40) % [place] % (Auto) 5.8 (2-11) % Eos % (Auto) 0.8 (0-4) % Baso % (Auto) 0.2 (0-2) % Lymph # (Auto) 1.0 L (1.2-4.9) X10*3/uL [place] # (Auto) 0.7 (0.1-1.2) X10*3/uL Eos # (Auto) 0.1 (0.0-0.4) X10*3/uL Baso # (Auto) 0.0 (0.0-0.2) X10*3/uL Abs Immat Gran (auto) 0.04 H (0.00-0.03) X10*3/uL Absolute Neuts (auto) 10.3 H (2.0-8.3) x10*3/uL Absolute Nucleated RBC 0.000 (0.0-0.012) X10*3/uL Nucleated RBC % (auto) 0.0 (0.0-0.2) /100WBC D-Dimer High Sensitivty Cancelled Sodium 140 (135-145) mmol/L Potassium 4.2 (3.3-5.1) mmol/L Chloride 99 (96-108) mmol/L Carbon Dioxide 32 H (22-29) mmol/L Anion Gap 13 (12-20) BUN 29 H (9-16) mg/dL Creatinine 0.80 (0.5-1.4) mg/dL Estim Creat Clear Calc 34.8 Estimated GFR > 60 Random Glucose 224 H (60-115) mg/dL Calcium 9.4 D (8.4-10.2) mg/dL Magnesium 2.0 (1.6-2.6) mg/dL Total Bilirubin 0.4 (0.0-1.0) mg/dL AST 16 (5-31) U/L ALT 14 (0-31) U/L Alkaline Phosphatase 137 H (39-117) U/L Troponin I High Sens 4.6 (<3.5-17.0) ng/L C-Reactive Protein 0.88 H (< or = 0.50) mg/dL Total Protein 7.0 (6.5-8.0) g/dL Albumin 3.3 L (3.5-5.0) g/dL Independent Interpretation I performed an independent interpretation of an: CT Scan (CT/CT pelvis wo IV con IMPRESSION: Unremarkable CT pelvis without contrast. Especially there is no visible fracture or bony abnormality involving the sacrum or the lower lumbar spine. Constipation with colonic diverticulosis most prominent in the sigmoid region. ) Interpretation: CT/CT lumbar spine wo IV con IMPRESSION: Age-indeterminate mild superior endplate compression fracture at the L3 level. No obvious paraspinal soft tissue inflammatory changes. Mild retropulsion of the superior endplate. Chronic-appearing inferior endplate compression deformity and large Schmorl's node at the L2 level. Significant bony demineralization. Multilevel spondylosis. Focal left paracentral disc protrusion at the L1-L2 level. Mild central canal stenosis at the L2-L3 and L3-L4 levels. Mild anterolisthesis and severe facet arthropathy with [id number]-fm-jyewkpgy central canal stenosis and foraminal narrowing at the L4-L5 level. Severe facet arthropathy at the L5-S1 level. Extensive sigmoid colonic diverticulosis and large stool burden. Mild bronchiectasis in the lower lobes with areas of soft tissue impaction in the distal bronchiolar airways. Radiology Impression Discussion of test interpretation with radiology: I have reviewed the radiologist's reading. External Record Review External record reviewed: Inpatient record, Office record, Outpatient record, Prior outpatient labs, Prior outpatient radiology, Primary care record and Outside ED record Critical Care Time Critical Care Time Critical Care Time: Yes Total Critical Care Time: 45 Attestation: I attest to this time spent taking care of the patient, obtaining history, physical, reviewing labs, imaging, speaking to my attending, speaking to specialist. Discharge Plan Discharge Clinical Impression: Lower back pain, Fall, Closed compression fracture of L3 vertebra, Central stenosis of spinal canal, Saddle anesthesia Patient Disposition: er [facility] Transfer Details: Dr. Barahona [facility] ED--> ED Prescriptions: No Action cholecalciferol (vitamin D3) [Vitamin D3] 10 mcg (400 unit) Tablet 10 mcg PO DAILY Women's 50 Plus Multivitamin 400 mcg-500 mg calcium-20 mcg tablet 1 tab PO DAILY magnesium citrate 125 mg capsule 125 mg PO BEDTIME lutein 20 mg capsule 20 mg PO DAILY Rx Instructions: give with meal/snack ascorbic acid (vitamin C) 500 mg capsule 500 mg PO DAILY biotin 1 mg capsule 1 mg PO DAILY (DME) OneTouch Ultra Blue Test Strip Strip See Rx Instructions .ROUTE .MEDSUPPLY Qty: 100 5RF Rx Instructions: Check fasting blood sugar daily at varied time (DME) blood-glucose meter Kit See Rx Instructions .ROUTE .MEDSUPPLY Qty: 1 0RF Rx Instructions: As directed- poc daily at varied time (DME) lancets [OneTouch Delica Lancets] 33 gauge misc See Rx Instructions .ROUTE .MEDSUPPLY Qty: 100 4RF Rx Instructions: Check blood sugar daily at varied time metformin 500 mg tablet 500 mg PO TID Qty: 30 0RF losartan 25 mg tablet 12.5 mg PO .evening Qty: 30 2RF metoprolol succinate 25 mg tablet extended release 24 hr 12.5 mg PO DAILY 30 Days Qty: 15 5RF
[2023-07-01 13:38] VITALS: BP 130/78; PULSE 95; RESP 18; TEMP 36.8; O2SAT 88
--- NOTE | 2023-07-01 13:47 | PC.NURSE ---
Pt awake, alert and oriented. Breathing even and unlabored, pt noted to have congestion and wet-sounding cough. Skin warm and dry. Pt reports slip and fall at home on Monday, with head hit, no LOC. Pt reports she hit the back of her head and lower back/ buttocks on kitchen floor. Pt reports lower back and buttocks pain worsening, 8/10, describes as constant and sharp. Pt does report some numbness in her lower back as well. CSMsX4 intact. No bleeding, swelling or deformity noted to back of head.
--- NOTE | 2023-07-01 13:50 | PC.NURSE ---
Pts vitals assessed, SPO2 on RA noted to be 86-87%. Pt reports she is on O2 at home as needed since she had pneumonia. Provider aware, pt placed on 2L O2 via NC per provider order with improvements in SPO2 to 94-96%.
[2023-07-01 15:16] VITALS: BP 154/89; PULSE 86; RESP 16; TEMP 36.7; O2SAT 97
[2023-07-01 15:51] LABS: MANUAL DIFF FLAG NO
[2023-07-01 15:53] LABS: Basophils Percent Auto 0.2 % (0-2); Eosinophils Absolute Auto 0.1 X10*3/uL (0.0-0.4); Eosinophils Percent Auto 0.8 % (0-4); Hematocrit 37.4 % (37.0-47.0); Hemoglobin 12.4 g/dl (12.0-16.0); Imm Gran Abs Auto 0.04 X10*3/uL (0.00-0.03); Imm Gran Pct Auto 0.3 % (0.0-0.4); Lymphocytes Percent Auto 8.2 % (20-40); Mean Corpuscular HGB Conc 33.2 g/dl (31.0-35.0); Mean Corpuscular Hemoglobin 29.6 pg (27.0-33.0); Mean Corpuscular Volume 89.3 fL (80.0-98.0); Mean Platelet Volume 8.9 fL (9.4-12.3); Monocytes Absolute Auto 0.7 X10*3/uL (0.1-1.2); Monocytes Percent Auto 5.8 % (2-11); Neutrophils Absolute Auto 10.3 x10*3/uL (2.0-8.3); Neutrophils Percent Auto 84.7 % (45-73); Platelet Count 320 X10*3/uL (160-400); Red Blood Count 4.19 X10*6/uL (4.20-5.50); Red Cell Distribution Width 15.9 % (11.0-16.0); White Blood Count 12.1 X10*3/uL (4.8-10.8)
[2023-07-01] MEDS: Lidocaine 4 % Patch ADH..PATCH 1 PATCH TRANSDERMA (15:55)
[2023-07-01 16:06] LABS: Alanine Aminotransferase 14 U/L (0-31); Albumin Level 3.3 g/dL (3.5-5.0); Alkaline Phosphatase 137 U/L (39-117); Anion Gap 13 (12-20); Aspartate Amino Transferase 16 U/L (5-31); Bilirubin Total 0.4 mg/dL (0.0-1.0); Blood Urea Nitrogen 29 mg/dL (9-16); C Reactive Protein 0.88 mg/dL (< or = 0.50); Calcium 9.4 mg/dL (8.4-10.2); Carbon Dioxide 32 mmol/L (22-29); Chloride 99 mmol/L (96-108); Creatinine Clr Calc Pharmacy 34.8; Estimated Glomerular Filt Rate > 60; Glucose Random 224 mg/dL (60-115); Potassium 4.2 mmol/L (3.3-5.1); Sodium 140 mmol/L (135-145)
--- NOTE | 2023-07-01 16:08 | PC.NURSE ---
Pt refused PO morphine, reports she would like to try the lido patch only at this time. Patch applied to lower back, pt reports pain is 5/10 at this time.
[2023-07-01 16:13] LABS: Troponin-I High Sensitivity 4.6 ng/L (<3.5-17.0)
--- NOTE | 2023-07-01 16:25 | ECG_ITS ---
Test Reason : FALL Blood Pressure : / mmHG Vent. Rate : 078 BPM Atrial Rate : 078 BPM P-R Int : 134 ms QRS Dur : 078 ms QT Int : 378 ms P-R-T Axes : 083 072 079 degrees QTc Int : 430 ms Normal sinus rhythm Biatrial enlargement Minimal voltage criteria for LVH, may be normal variant ( Isacc product ) Nonspecific T wave abnormality Abnormal ECG When compared to the previous EKG of nonspecific T wave changes Present Referred By: Raven Carrillo Electronically Signed By:Deon Laura
[2023-07-01 16:30] LABS: Erythrocyte Sedimentation Rate 28 MM/HR (0-20)
[2023-07-01 17:35] VITALS: BP 158/82; PULSE 77; RESP 16; TEMP 36.7; O2SAT 97
--- NOTE | 2023-07-01 17:50 | PC.NURSE ---
Report called to RN at [facility] ED via phone. EMS here now to transport pt.
== END 2023-07-01 17:57 | disposition short-term general hospital (02) ==
PROVIDERS: Physician Assistant; Emergency Provider Emergency Medicine
DX: S32.030A Wedge compression fracture of third lumbar vertebra, initial encounter for closed fracture (principal); W18.39XA Other fall on same level, initial encounter; M48.061 Spinal stenosis, lumbar region without neurogenic claudication; M40.46 Postural lordosis, lumbar region; M54.50 Low back pain, unspecified; Y93.89 Activity, other specified; Y92.030 Kitchen in apartment as the place of occurrence of the external cause; Y99.9 Unspecified external cause status; E11.9 Type 2 diabetes mellitus without complications; R09.02 Hypoxemia; R63.6 Underweight; Z68.1 Body mass index [BMI] 19.9 or less, adult; Z79.84 Long term (current) use of oral hypoglycemic drugs; Z79.899 Other long term (current) drug therapy
CPT/HCPCS: 36415; 71045; 72131; 72192; 80053; 83735; 84484; 85025; 85652; 86140; 93005; 99285

== ENCOUNTER → 2023-07-01 16:25 | Outpatient (BNV) | payer MEDICARE, SELFPAY | PROVIDERS: Emergency Provider Emergency Medicine; Visit Provider Internal Medicine Cardiovascular Disease | DX: R94.31 Abnormal electrocardiogram [ECG] [EKG] (principal) | CPT/HCPCS: 93010 ==

== ENCOUNTER → 2023-08-25 14:33 | Outpatient (BNVA) | payer MEDICARE, SELFPAY | PROVIDERS: PCP Nurse Practitioner Family; Visit Provider Nurse Practitioner Family | DX: R00.2 Palpitations (principal); I47.10 Supraventricular tachycardia, unspecified | CPT/HCPCS: 99212 ==

== ENCOUNTER 2023-08-25 14:34 | Outpatient (AMB) | payer MEDICARE, SELFPAY ==
[2023-08-25 14:35] VITALS: BP 150/62; PULSE 98; BMI 13.3
--- NOTE | 2023-08-25 14:35 | A.OFFVIS_ITS ---
Intake Vital Signs 08/25/23 14:35 Height 5 ft 3 in Weight 74 lb 15.315 oz BMI 13.3 BP 150/62 H Blood Pressure Location Lt brachial Position Sitting Pulse 98 Pulse Source Pulse Oximeter Intake Visit Reasons: 2 mth f/up Intake Note: pt its here for 2 mnth f/up/ pt states that her o2 has been low, in OV its 89, Cost Coordinator Required: No Accompanied by: Self / Same As Patient Allergies sulfa Allergy (Unknown, Verified 07/01/23 12:39) diarrhea midazolam [From Versed] Adverse Reaction (Severe, Verified 07/01/23 12:39) bradycardia Medication List - Last Reconciled 08/25/23 by ROHITH Wadsworth ascorbic acid (vitamin C) 500 mg PO DAILY biotin 1 mg PO DAILY blood sugar diagnostic ([place] [employer] Ultra Blue Test Strip) Check fasting blood sugar daily at varied time blood-glucose meter As directed- poc daily at varied time cholecalciferol (vitamin D3) (Vitamin D3) 10 mcg PO DAILY lancets (RhapsoTouch Delica Lancets) Check blood sugar daily at varied time losartan 12.5 mg (1/2 x 25 mg) PO .evening lutein 20 mg PO DAILY magnesium citrate 125 mg PO BEDTIME metformin 500 mg PO TID metoprolol succinate ER 12.5 mg (1/2 x 25 mg) PO DAILY 30 days ff-rbi-cckqn-calcium carb-K1 400 mcg-500 mg calcium-20 mcg (Women's 50 Plus Multivitamin) 1 tab PO DAILY HPI 2 mth f/up HPI Details Parisa is a 77-year-old female with past medical history of being underweight, diabetes, emphysema who recently reported heart palpitations and was found to have runs of SVT. She was started on low-dose metoprolol for heart rate control. Today she reports that she continues to notice brief heart palpitations. She says when she gets the episodes she just sits still and it will go away suddenly. She has been experiencing some weakness and fatigue. She tells me she has a lack of appetite and has been trying to gain weight. No concerning shortness of breath, lightheadedness, presyncope, syncope, falls. She is still recovering from a prior fall where she hurt her pelvic region. No PND, orthopnea or edema. She tells me she checks her oxygen with a sat monitor periodically during the day. She believes that her readings have been lower since starting the metoprolol. She has had readings as low as 78. She has oxygen that she can wear as needed. She says she typically wears it if her sat is less than 89%. [facility] Medical History Sepsis Pneumonia Acute sinusitis Hypoxemia Pulmonary emphysema Pneumothorax Diabetes mellitus with microalbuminuria, without long-term current use of insulin Vaccination refused by patient Underweight Intermittent palpitations Diabetes mellitus with hyperglycemia, without long-term current use of insulin Hx of fracture of wrist H/O fracture of wrist Surgical History H/O wrist surgery History of femoral hernia repair Family History Father Diabetes mellitus Mother Essential hypertension Sister Breast cancer Social History Household Members: Significant Other Housing: House Do you presently have visiting nurse or other home services: No Alcohol intake: never Patient Tobacco Use Status: Never used Tobacco e-Cigarette/Vaping Use: Never Used Advance Directives Date on File: 06/16/22 service: No Current occupational status: retired Cognitive needs: No Hearing needs: No Vision needs: No Review of Systems Const Details: frailty All systems reviewed & are unremarkable except as noted in HPI and below Denies chills, Denies fatigue, Denies fever(s), Denies frequent falls, Denies weakness, Denies weight gain and Reports weight loss ENT Denies dizziness Card Details: hypoxia at times, wears O2 for sat < 89% Denies chest pain, Denies leg edema, Denies lightheadedness, Denies palpitations, Denies dyspnea and Reports dyspnea on exertion Resp Denies cough, Denies dyspnea and Reports dyspnea on exertion GI Denies hematochezia Musc Denies abnormal gait, Denies muscle weakness, Denies numbness, Denies radiating pain into limb and Denies tingling Neuro Denies abnormal gait, Denies dizziness, Denies frequent falls, Denies numbness, Denies tingling and Denies weakness Endo Denies fatigue and Denies palpitations Physical Exam Vital Signs: Last Vital Signs Pulse 98 03/22/24 14:35 BP 150/62 H 08/25/23 14:35 BMI result Body Mass Index 13.3 Const Other: thin, frail elderly female General: comfortable and no acute distress Orientation/consciousness: patient oriented x3 Neck Neck: Yes normal visual inspection Resp Effort & Inspection: normal respiratory effort Auscultation: clear to auscultation bilaterally, no rales, no rhonchi and no wheezes Cardio Jugular venous distension: no JVD Rate: regular rate Rhythm: regular rhythm Heart sounds: S1 normal heart sound present, S2 normal heart sound present, no murmurs and no rubs Neuro General: patient oriented x3 Extrem General: Yes normal to inspection and No no pedal edema Psych Mental Status: mental status grossly normal Speech and movement: Normal speech and movement present Assessment & Plan Assessment & Plan (1) Palpitations: Code(s): R00.2 - Palpitations Plan: Report of heart palpitations. Holter monitor done 06/02/2023 for 14 days showed sinus rhythm with average heart rate 90, 24 episodes of SVT, fastest 195 beats per minute and longest 24 beats. Patient is report of palpitations did correlate with SVT. Echocardiogram done 06/02/2023 showed EF 62%, normal valves, mild pulmonary hypertension. On last visit she was started on low-dose metoprolol. She tells me she continues to have brief episodes of heart palpitations. She also is noticing decreasing oxygen saturations since the addition of metoprolol. She does have a known history of emphysema and wears oxygen as needed. 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 Instructed to call if she is having any lightheadedness with this medication. Reviewed the need to cut out all caffeine which she says she already has done. Spent time reviewing vagal maneuvers with her in detail. Emergency care if needed for sustained rapid heart palpitations. Cardiology follow-up in 3 months, sooner if needed. (2) Supraventricular tachycardia: Code(s): I47.10 - Supraventricular tachycardia, unspecified Plan: As above Plan Time spent on chart review, documentation, interview Medications: New diltiazem HCl Stop Metoprolol Start Diltiazem 30 mg PO BID 60 tabs 5RF Discontinued metoprolol succinate ER Discontinued Reason: Doctor's Order 12.5 mg (1/2 x 25 mg) PO DAILY 30 days 15 tabs 5RF Coding Level of Care Code Est Pt Level 3 (77536) Diagnoses Palpitations R00.2 Supraventricular tachycardia I47.10 Time Spent (min) 24
== END 2023-08-25 15:07 | disposition home or self-care (01) ==
PROVIDERS: PCP Nurse Practitioner Family; Visit Provider Nurse Practitioner Family
DX: R00.2 Palpitations (principal); I47.10 Supraventricular tachycardia, unspecified
CPT/HCPCS: 99213

== ENCOUNTER 2023-08-31 23:10 | Inpatient (IN) | payer MEDICARE, SELFPAY ==
--- NOTE | ~2023-08-31 | XR_ITS ---
EXAMINATION: XR CHEST CLINICAL INFORMATION: Hypoxia. COMPARISON: Chest 07/01/2023 TECHNIQUE: Frontal view of the chest was obtained. FINDINGS: The lungs are hyperinflated with increased interstitial markings and groundglass opacities throughout both lungs slightly more prominent than 07/11/2022 and 07/01/2023. No focal consolidation seen. There is minimal blunting of CP angle. Heart size and pulmonary vascularity is normal. There is mild bilateral apical pleural thickening. No gross bony abnormality seen. XR/XR chest 1V IMPRESSION: Hyperinflated lungs with increased interstitial markings and groundglass opacities throughout both lungs slightly more prominent than 07/11/2022 and 07/01/2023. Findings are suggestive of chronic parenchymal changes. Superimposed pneumonitis cannot be excluded.
--- NOTE | ~2023-08-31 | CT_ITS ---
EXAMINATION: CT ANGIOGRAM OF THE CHEST WITH AND WITHOUT CONTRAST (CT PULMONARY ANGIOGRAM FOR PE) CLINICAL INFORMATION: Reason for Exam hypoxic, tachycardic COMPARISON: Chest x-ray 08/31/2023 TECHNIQUE: Prior to contrast administration, noncontrast localization images were obtained. Subsequently, multidetector volumetric imaging was performed from the thoracic inlet to below the diaphragms following the administration of 65 mL Omnipaque 350 intravenous contrast. No contrast reaction reported Sagittal, coronal, and MIP oblique sagittal reformatted images were obtained on the CT workstation, uploaded to PACS, and reviewed. This CT examination was performed using dose optimization techniques as appropriate, variously including the following: *Automated exposure control *Adjustment of mA and/or kV according to patient size (this includes techniques or standardized protocols for targeted exams where dose is matched to indication/reason for exam; i.e. extremities or head) *Use of iterative reconstruction technique Total exam dose-length product 169 mGy-cm FINDINGS: QUALITY OF STUDY/CONTRAST BOLUS: Satisfactory. PULMONARY ARTERIES: No pulmonary emboli. THORACIC AORTA: Scattered calcifications. No evidence of dissection. LUNG: There are moderately extensive, multifocal regions of groundglass opacity bilaterally. Impacted airways are present most prominently in the bilateral lower lobes, lingula, and right middle lobe. Patchy areas of denser consolidation are present in the basilar lower lobes. PLEURA: No pneumothorax or pleural effusion. MEDIASTINUM: Thyroid gland is grossly unremarkable. No discrete lymphadenopathy is seen. Cardiac size is within normal limits; no pericardial effusion. CORONARY ARTERY CALCIFICATION: Present CHEST WALL/AXILLA: No axillary or internal mammary lymphadenopathy. OSSEOUS STRUCTURES: Moderate to severe compression deformity of T9, age-indeterminate UPPER ABDOMEN: Unremarkable. No reflux of contrast into the hepatic veins to suggest elevated right heart pressures. CT/CT angio chest PE protocol IMPRESSION: 1. No pulmonary embolus identified. 2. Moderately extensive multifocal regions of groundglass opacity bilaterally. Impacted airways most prominently in the bilateral lower lobes, lingula, and right middle lobe. Patchy areas of denser consolidation in the basilar lower lobes. Appearance is nonspecific and may be secondary to aspiration or multifocal pneumonia. 3. Moderate to severe compression deformity of T9, age-indeterminate. VTE: negative.
--- NOTE | ~2023-08-31 | XR_ITS ---
EXAMINATION: XR CHEST CLINICAL INFORMATION: Pneumonia COMPARISON: CTA chest September 01, 2023 and chest x-ray August 31, 2023 TECHNIQUE: 2 views of the chest were obtained. FINDINGS: Cardiac silhouette is normal in size. The lungs are hyperinflated. Similar diffuse coarsening of the interstitial markings. Mild patchy airspace opacities. There is mildly accentuated blunting of both costophrenic angles which may represent tiny developing bilateral pleural effusions. Biapical scarring. No pneumothorax. XR/XR chest 2V IMPRESSION: Chronic emphysematous changes of the lungs with no superimposed airspace disease and suspected tiny developing bilateral pleural effusions. Follow-up imaging recommended status post treatment to ensure resolution.
--- NOTE | 2023-08-31 23:23 | ECG_ITS ---
Test Reason : WEAKNESS Blood Pressure : / mmHG Vent. Rate : 082 BPM Atrial Rate : 082 BPM P-R Int : 136 ms QRS Dur : 072 ms QT Int : 384 ms P-R-T Axes : 077 064 051 degrees QTc Int : 448 ms Normal sinus rhythm Possible Left atrial enlargement Borderline ECG When compared with ECG of 01-JUL-2023 17:47, No significant change was found Referred By: Nora Marcelino Electronically Signed By:Deon Laura
[2023-08-31 23:32] VITALS: BP 143/85; PULSE 78; RESP 17; TEMP 36.4; O2SAT 91
--- NOTE | 2023-08-31 23:32 | ED_ITS ---
HPI - General Adult General Chief complaint: Upper Respiratory Symptoms Stated complaint: sob x1wk,weakness,RA 80'S,NONREBREATHER,O2 NOW 96% Time Seen by Provider: 08/31/23 23:22 Source: patient and EMS Mode of arrival: EMS Limitations: no limitations History of Present Illness HPI narrative: Patient comes to the emergency room complaining of shortness of breath for 2 weeks. Patient states that earlier today, patient seemed to be almost unconscious when her found her, he got scared and called 911. Patient woke up immediately. Patient states that she has been feeling short of breath for 2 weeks, coughing more than usual. Patient states that she does not have history of asthma or COPD or any significant cardiac history other than palpitations. Patient does have oxygen at home p.r.n. shortness of breath. Patient states that she has oxygen p.r.n. since the last time she was diagnosed with pneumonia. Usually patient does not needed but for the last 2 weeks she has been using it almost all the time. When EMS arrived, patient's oxygen saturation was in the low 80s on room air. When patient walked from her couch to the stretcher, with mild exertion, oxygen dropped to the 70s. Patient was put on non-rebreather and recovered to the mid 90s. Related Data Home Medications Medication Instructions Recorded Confirmed ascorbic acid (vitamin C) 500 mg 500 mg PO DAILY 05/26/20 08/25/23 capsule biotin 1 mg capsule 1 mg PO DAILY 05/26/20 08/25/23 lutein 20 mg capsule 20 mg PO DAILY 05/26/20 08/25/23 magnesium citrate 125 mg capsule 125 mg PO BEDTIME 05/26/20 08/25/23 boimsneu-ljg-obeci ac 400 1 tab PO DAILY 05/26/20 08/25/23 mcg-calcium carb 500 mg-vit K1 20 mcg tablet (Women's 50 Plus Multivitamin) cholecalciferol (vitamin D3) 10 10 mcg PO DAILY 07/11/22 08/25/23 mcg (400 unit) tablet (Vitamin D3) Previous Rx's Medication Instructions Recorded blood sugar diagnostic ([employer] #100 ea 07/08/20 Ultra Blue Test Strip) blood-glucose meter #1 ea 07/08/20 lancets 33 gauge (OneTouch Delica #100 ea 07/08/20 Lancets) losartan 25 mg tablet 12.5 mg (1/2 x 25 mg) PO .evening 04/07/23 #30 tabs metformin 500 mg tablet 500 mg PO TID #30 tabs 05/04/23 diltiazem HCl 30 mg tablet 30 mg PO BID #60 tabs 08/25/23 Allergies Allergy/AdvReac Type Severity Reaction Status Date / Time sulfa Allergy Unknown diarrhea Verified 08/31/23 23:33 midazolam [From Versed] AdvReac Severe bradycardia Verified 08/31/23 23:33 Review of Systems 2 Review of Systems: Constitutional : No Weight loss, No Fever, No Chills, No Night Sweats, No Fatigue, No Malaise ENT/Mouth : No Hearing loss, No Ear Pain, No Nasal Congestion, No Sinus Pain, No Hoarseness, No sore throat, No Rhinorrhea, No Swallowing Difficulty Eyes: No Eye Pain, No Swelling, No Redness, No Foreign Body, No Discharge, No Vision Changes Cardiovascular : No Chest Pain, palpitations, new orthopnea, no lower extremity edema Respiratory : Complaining of cough, no wheezing, shortness of breath worse with exertion Gastrointestinal : No Nausea, No Vomiting, No Diarrhea, No Constipation, No abdominal Pain, No Hematochezia, No Melena Genitourinary : no irregular bleeding, No Dysuria, No Urinary Frequency, No Hematuria, No Urinary Incontinence, No Urgency, No Flank Pain, No Urinary Flow Changes, No Hesitancy Musculoskeletal : No joint pain, No Myalgias, No Joint Swelling Skin : No Skin Lesions, No rash Neuro : No Weakness, No Numbness, No Paresthesias, No Loss of Consciousness, No Dizziness, No Headache Psych : No Anxiety/Panic, No Depression, No SI/HI/AH/VH, No Social Issues, Heme/Lymph: No Bruising, No Bleeding,No Lymphadenopathy Endocrine : No Polyuria, No Polydipsia, No Temperature Intolerance PMFSH Past Medical History Medical History Sepsis Pneumonia Acute sinusitis Hypoxemia Pulmonary emphysema Pneumothorax Diabetes mellitus with microalbuminuria, without long-term current use of insulin Vaccination refused by patient Underweight Intermittent palpitations Diabetes mellitus with hyperglycemia, without long-term current use of insulin Hx of fracture of wrist H/O fracture of wrist Surgical History H/O wrist surgery History of femoral hernia repair Family History Family History Father Diabetes mellitus Mother Essential hypertension Sister Breast cancer Social History Social History Household Members: Significant Other Housing: House Do you presently have visiting nurse or other home services: No Alcohol intake: never Patient Tobacco Use Status: Never used Tobacco e-Cigarette/Vaping Use: Never Used Advance Directives: Yes Advance Directives on File: Yes Advance Directives Date on File: 06/16/22 service: No Current occupational status: retired Cognitive needs: No Hearing needs: No Vision needs: No Physical Exam ED Vital Signs: Vital Signs - 24 hr 08/31/23 23:32 08/31/23 23:34 Temperature 97.6 F 97.6 F Pulse Rate 78 84 Respiratory Rate 17 30 H Blood Pressure 143/85 H 132/87 Pulse Oximetry 91 L 85 L Oxygen Delivery Method Room Air Room Air BMI result Body Mass Index 13.8 Const Other: Appearance: Alert. Oriented X3. No acute distress. Cachectic Eyes: Pupils equal, round and reactive to light. ENT: Pharynx normal. Neck: Normal inspection. Neck supple. No lymph nodes noted. No crepitus CVS: Normal heart rate and rhythm. Pulses normal. Normal S1 and S2 Respiratory: Patient is speaking in full sentences, oxygen saturation 95% on room air. However, with minimal exertion before even getting out of bed, oxygen dropped to the low 80s. To recover, patient was initially placed on 6 L of oxygen, O2 saturation state in the mid 80s, patient has switched to a non- rebreather, oxygen saturation improved to the low 90s. Abdomen: Soft and nontender. No rigidity. No distention. Skin: Skin warm and dry. Normal skin color. Normal skin turgor. Extremities: No lower extremity edema. No Lacerations. No Rash Neuro: Oriented X 3. No motor deficit. No sensory deficit. Moving all extremities. No slurred speech. CN 2 through 12 grossly intact Psych: calm, cooperative, normal affect Course Course Course Narrative: Patient receiving IV fluids and antibiotics. Patient is significantly hypoxic. Patient is empirically being treated with IV fluids and antibiotics. -patient's blood pressure, heart rate within normal limits. No fever, Sepsis is not suspected at this time, 23:48. -all of patient's labs and imaging pending Medications Administered Discontinued Medications Generic Name Dose Route Start Last Admin Trade Name Trish PRN Reason Stop Dose Admin Iohexol 65 ml 09/01/23 00:48 09/01/23 00:49 Iohexol 350 Mg/Ml 100 Ml Infus..Btl IV 09/01/23 00:49 65 ml ONCE ONE Administration Medical Decision Making Medical Decision Making [facility] Narrative: -my interpretation of labs: Hematology and chemistry no significant abnormalities, glucose 361, BNP 252 (on physical exam no crackles, no lower extremity edema) -patient was empirically treated with IV antibiotics and fluids -patient received 5 units of insulin for hyperglycemia. -my interpretation of CTA scan: No obvious pulmonary embolism, multifocal pneumonia present -I discussed the patient with Dr. Jansen, patient being admitted Differential Diagnosis Differential Diagnoses: The differential diagnosis associated with the presentation includes (Pulmonary embolism, COVID, pneumonia) Admission/Observation Consideration of admission/observation: Escalation of care including admission/observation considered Consult Healthcare Provider Management of the patient was discussed with: Hospitalist Lab Data [facility] Lab Attestation statement: I reviewed the patient's lab results. 08/31/23 23:45 08/31/23 23:45 Labs: Lab Results 08/31/23 08/31/23 08/31/23 Range/Units 23:39 23:45 23:49 WBC 7.1 (4.8-10.8) X10*3/uL RBC 4.36 (4.20-5.50) X10*6/uL Hgb 12.8 (12.0-16.0) g/dl Hct 39.5 (37.0-47.0) % MCV 90.6 (80.0-98.0) fL MCH 29.4 (27.0-33.0) pg MCHC 32.4 (31.0-35.0) g/dl RDW 15.6 (11.0-16.0) % Plt Count 245 (160-400) X10*3/uL MPV 9.1 L (9.4-12.3) fL Immature Gran % (Auto) 0.1 (0.0-0.4) % Neut % (Auto) 75.2 H (45-73) % Lymph % (Auto) 11.4 L (20-40) % Talbot % (Auto) 7.8 (2-11) % Eos % (Auto) 5.1 H (0-4) % Baso % (Auto) 0.4 (0-2) % Lymph # (Auto) 0.8 L (1.2-4.9) X10*3/uL Talbot # (Auto) 0.6 (0.1-1.2) X10*3/uL Eos # (Auto) 0.4 (0.0-0.4) X10*3/uL Baso # (Auto) 0.0 (0.0-0.2) X10*3/uL Abs Immat Gran (auto) 0.01 (0.00-0.03) X10*3/uL Absolute Neuts (auto) 5.3 (2.0-8.3) x10*3/uL Absolute Nucleated RBC 0.000 (0.0-0.012) X10*3/uL Nucleated RBC % (auto) 0.0 (0.0-0.2) /100WBC PT 11.7 (11.1-13.3) SEC INR 1.0 (0.9-1.1) VBG pH 7.40 (7.32-7.43) VBG pCO2 69 mmHg VBG pO2 43 mmHg VBG HCO3 43 H (22-26) mmol/L VBG O2 Saturation 64.0 % VBG Base Excess 15.5 mmol/L Sodium 140 (135-145) mmol/L Potassium 4.2 (3.3-5.1) mmol/L Chloride 94 L (96-108) mmol/L Carbon Dioxide 35 H (22-29) mmol/L Anion Gap 15 (12-20) BUN 28 H (9-16) mg/dL Creatinine 0.80 (0.5-1.4) mg/dL Estim Creat Clear Calc 33.3 Estimated GFR > 60 Random Glucose 361 H* (60-115) mg/dL Lactic Acid 1.0 (0.5-2.0) mmol/L Calcium 9.9 (8.4-10.2) mg/dL Magnesium 1.7 (1.6-2.6) mg/dL Total Bilirubin 0.3 (0.0-1.0) mg/dL Direct Bilirubin 0.2 (0.0-0.5) mg/dL AST 11 (5-31) U/L ALT 11 (0-31) U/L Alkaline Phosphatase 79 (39-117) U/L Troponin I High Sens 4.2 (<3.5-17.0) ng/L B-Natriuretic Peptide 252 H (<100) pg/mL Total Protein 6.9 (6.5-8.0) g/dL Albumin 3.1 L (3.5-5.0) g/dL Influenza Type A (PCR) NEGATIVE (Negative) Influenza Type B (PCR) NEGATIVE (Negative) RSV RNA Qual (PCR) NEGATIVE (Negative) SARS-CoV-2 RNA (RT-PCR) NEGATIVE (Negative) Independent Interpretation I performed an independent interpretation of an: EKG (My interpretation of EKG, normal sinus rhythm, heart rate 82, no ST segment depression, nonspecific less than 1 mm elevation in V3 with T-wave inversion, QTC 448), Plain X-Ray (My interpretation of chest x-ray: No obvious infiltrates) and CT Scan Radiology Impression Discussion of test interpretation with radiology: I have reviewed the radiologist's reading. Radiologist Impression: FINDINGS: QUALITY OF STUDY/CONTRAST BOLUS: Satisfactory. PULMONARY ARTERIES: No pulmonary emboli. THORACIC AORTA: Scattered calcifications. No evidence of dissection. LUNG: There are moderately extensive, multifocal regions of groundglass opacity bilaterally. Impacted airways are present most prominently in the bilateral lower lobes, lingula, and right middle lobe. Patchy areas of denser consolidation are present in the basilar lower lobes. PLEURA: No pneumothorax or pleural effusion. MEDIASTINUM: Thyroid gland is grossly unremarkable. No discrete lymphadenopathy is seen. Cardiac size is within normal limits; no pericardial effusion. CORONARY ARTERY CALCIFICATION: Present CHEST WALL/AXILLA: No axillary or internal mammary lymphadenopathy. OSSEOUS STRUCTURES: Moderate to severe compression deformity of T9, age-indeterminate UPPER ABDOMEN: Unremarkable. No reflux of contrast into the hepatic veins to suggest elevated right heart pressures. CT/CT angio chest PE protocol IMPRESSION: 1. No pulmonary embolus identified. 2. Moderately extensive multifocal regions of groundglass opacity bilaterally. Impacted airways most prominently in the bilateral lower lobes, lingula, and right middle lobe. Patchy areas of denser consolidation in the basilar lower lobes. Appearance is nonspecific and may be secondary to aspiration or multifocal pneumonia. 3. Moderate to severe compression deformity of T9, age-indeterminate. VTE: negative. Critical Care Time Critical Care Time Critical Care Time: Yes Total Critical Care Time: 75 Attestation: I have personally provided critical care time. Time includes review of lab data, radiology results, discussion with consultants, and monitoring for potential decompensation. Intervention performed as documented. Discharge Plan Discharge Clinical Impression: Multifocal pneumonia, Acute hyperglycemia Patient Disposition: Admitted As Inpatient Prescriptions: No Action cholecalciferol (vitamin D3) [Vitamin D3] 10 mcg (400 unit) Tablet 10 mcg PO DAILY Women's 50 Plus Multivitamin 400 mcg-500 mg calcium-20 mcg tablet 1 tab PO DAILY magnesium citrate 125 mg capsule 125 mg PO BEDTIME lutein 20 mg capsule 20 mg PO DAILY Rx Instructions: give with meal/snack ascorbic acid (vitamin C) 500 mg capsule 500 mg PO DAILY biotin 1 mg capsule 1 mg PO DAILY (DME) OneTouch Ultra Blue Test Strip Strip See Rx Instructions .ROUTE .MEDSUPPLY Qty: 100 5RF Rx Instructions: Check fasting blood sugar daily at varied time (DME) blood-glucose meter Kit See Rx Instructions .ROUTE .MEDSUPPLY Qty: 1 0RF Rx Instructions: As directed- poc daily at varied time (DME) lancets [OneTouch Delica Lancets] 33 gauge misc See Rx Instructions .ROUTE .MEDSUPPLY Qty: 100 4RF Rx Instructions: Check blood sugar daily at varied time metformin 500 mg tablet 500 mg PO TID Qty: 30 0RF diltiazem HCl 30 mg tablet 30 mg PO BID Qty: 60 5RF Rx Instructions: Stop Metoprolol Start Diltiazem losartan 25 mg tablet 12.5 mg PO .evening Qty: 30 2RF
[2023-08-31 23:34] VITALS: BP 132/87; PULSE 84; RESP 30; TEMP 36.4; O2SAT 85; O2SAT 88; BMI 13.8
[2023-08-31 23:49] LABS: MANUAL DIFF FLAG NO
[2023-08-31 23:51] LABS: Basophils Percent Auto 0.4 % (0-2); Eosinophils Absolute Auto 0.4 X10*3/uL (0.0-0.4); Eosinophils Percent Auto 5.1 % (0-4); Hematocrit 39.5 % (37.0-47.0); Hemoglobin 12.8 g/dl (12.0-16.0); Imm Gran Abs Auto 0.01 X10*3/uL (0.00-0.03); Imm Gran Pct Auto 0.1 % (0.0-0.4); Lymphocytes Absolute Auto 0.8 X10*3/uL (1.2-4.9); Lymphocytes Percent Auto 11.4 % (20-40); Mean Corpuscular HGB Conc 32.4 g/dl (31.0-35.0); Mean Corpuscular Hemoglobin 29.4 pg (27.0-33.0); Mean Corpuscular Volume 90.6 fL (80.0-98.0); Mean Platelet Volume 9.1 fL (9.4-12.3); Monocytes Absolute Auto 0.6 X10*3/uL (0.1-1.2); Monocytes Percent Auto 7.8 % (2-11); Neutrophils Absolute Auto 5.3 x10*3/uL (2.0-8.3); Neutrophils Percent Auto 75.2 % (45-73); Platelet Count 245 X10*3/uL (160-400); Red Blood Count 4.36 X10*6/uL (4.20-5.50); Red Cell Distribution Width 15.6 % (11.0-16.0); White Blood Count 7.1 X10*3/uL (4.8-10.8)
[2023-08-31 23:52] LABS: Venous Blood Gas Refer to POC result
[2023-08-31 23:56] LABS: VBG Base Excess 15.5 mmol/L; VBG HCO3 43 mmol/L (22-26); VBG pCO2 69 mmHg; VBG pO2 43 mmHg
[2023-08-31 23:56] LABS: Prothrombin Time 11.7 SEC (11.1-13.3)
[2023-09-01 00:10] LABS: Alanine Aminotransferase 11 U/L (0-31); Albumin Level 3.1 g/dL (3.5-5.0); Alkaline Phosphatase 79 U/L (39-117); Anion Gap 15 (12-20); Aspartate Amino Transferase 11 U/L (5-31); Bilirubin Direct 0.2 mg/dL (0.0-0.5); Bilirubin Total 0.3 mg/dL (0.0-1.0); Blood Urea Nitrogen 28 mg/dL (9-16); Calcium 9.9 mg/dL (8.4-10.2); Carbon Dioxide 35 mmol/L (22-29); Chloride 94 mmol/L (96-108); Creatinine Clr Calc Pharmacy 33.3; Estimated Glomerular Filt Rate > 60; Glucose Random 361 mg/dL (60-115); Magnesium 1.7 mg/dL (1.6-2.6); Potassium 4.2 mmol/L (3.3-5.1); Sodium 140 mmol/L (135-145); Total Protein 6.9 g/dL (6.5-8.0)
[2023-09-01 00:12] LABS: Troponin-I High Sensitivity 4.2 ng/L (<3.5-17.0)
[2023-09-01 00:17] LABS: B Type Natriuretic Peptide 252 pg/mL (<100)
[2023-09-01 00:28] LABS: Influenza A PCR NEGATIVE (Negative); Influenza B PCR NEGATIVE (Negative); Resp Syncy Virus RNA Qual PCR NEGATIVE (Negative); SARS COV2 PCR INHOUSE NEGATIVE (Negative)
[2023-09-01] MEDS: iohexoL 350 MG/ML 100 ML INFUS..BTL 65 ML IV (00:49)
[2023-09-01] MEDS: cefTRIAXone sodium 1 GM in 0.9 % Sodium Chloride 50 ML IV ×2 (01:50→22:13)
[2023-09-01] MEDS: 0.9 % Sodium Chloride 1,200 ML 999 ML IVCONT (01:50)
[2023-09-01] MEDS: Insulin Regular, Human 100 UNIT/ML 3 ML VIAL IVPUSH (01:54)
[2023-09-01] MEDS: Azithromycin 500 MG in 0.9 % Sodium Chloride 250 ML 125 MG IV ×2 (02:00→22:15)
[2023-09-01 02:25] VITALS: BP 133/87; PULSE 83; RESP 22; TEMP 36.9; O2SAT 95
--- NOTE | 2023-09-01 02:27 | P.HPHOSP_ITS ---
History of Present Illness Date of Service: 09/01/23 Chief Complaint: Dyspnea This is a 78-year-old female with pertinent history of qri-essnmhc-bpptytqok diabetes mellitus, essential hypertension, chronic hypoxemic respiratory failure due to pneumonia with 1-2 L baseline oxygen as needed who presents to the emergency department for evaluation of dyspnea. Patient is a poor historian. Patient states she has home oxygen which she was given while she was in the hospital a year ago. Patient states she only uses oxygen as needed. Patient was feeling short of breath for the last few days. She checked her home O2 sat with pulse ox and it was found to be low. She tried to use her oxygen but her O2 sat was not coming up. Also endorses productive cough that has been ongoing for the last few days. No history of asthma or COPD. No history of smoking tobacco. No coughing episodes or choking episodes with food or water. No fever, chills, chest discomfort, palpitations, abdominal pain, changes in urinary or bowel habits. In the emergency department, patient was found be hypoxemic and requiring 5 L supplemental oxygen. Imaging with multifocal pneumonia. Review of Systems 2 Constitutional: Constitutional: Reports fatigue, Reports lethargy, Reports malaise, Reports poor appetite and Reports weakness Cardiovascular: Cardiovascular: Reports dyspnea on exertion Respiratory: Respiratory: Reports cough and Reports dyspnea on exertion Gastrointestinal: Gastrointestinal: Reports no additional gastrointestinal complaints Genitourinary: Genitourinary: Reports no additional female genitourinary complaints Musculoskeletal: Musculoskeletal: Reports no additional musculoskeletal complaints Neurologic: Reports weakness Endocrine: Endocrine: Reports fatigue [facility] Medical History Sepsis Pneumonia Acute sinusitis Hypoxemia Pulmonary emphysema Pneumothorax Diabetes mellitus with microalbuminuria, without long-term current use of insulin Vaccination refused by patient Underweight Intermittent palpitations Diabetes mellitus with hyperglycemia, without long-term current use of insulin Hx of fracture of wrist H/O fracture of wrist Family History Father Diabetes mellitus Mother Essential hypertension Sister Breast cancer Surgical History H/O wrist surgery History of femoral hernia repair Social History Household Members: Significant Other Housing: House Do you presently have visiting nurse or other home services: No Alcohol intake: never Patient Tobacco Use Status: Never used Tobacco e-Cigarette/Vaping Use: Never Used Advance Directives: Yes Advance Directives on File: Yes Advance Directives Date on File: 06/16/22 service: No Current occupational status: retired Cognitive needs: No Hearing needs: No Vision needs: No Meds Allergies Allergy/AdvReac Type Severity Reaction Status Date / Time sulfa Allergy Unknown diarrhea Verified 08/31/23 23:33 midazolam [From Versed] AdvReac Severe bradycardia Verified 08/31/23 23:33 Home Medications Medication Instructions Recorded Confirmed Last Taken Type ascorbic acid (vitamin C) 500 mg 500 mg PO DAILY 05/26/20 08/25/23 07/11/22 History capsule biotin 1 mg capsule 1 mg PO DAILY 05/26/20 08/25/23 Unknown History lutein 20 mg capsule 20 mg PO DAILY 05/26/20 08/25/23 Unknown History magnesium citrate 125 mg capsule 125 mg PO BEDTIME 05/26/20 08/25/23 Unknown History pmyjszfq-jdg-mtaec ac 400 1 tab PO DAILY 05/26/20 08/25/23 Unknown History mcg-calcium carb 500 mg-vit K1 20 mcg tablet (Women's 50 Plus Multivitamin) cholecalciferol (vitamin D3) 10 10 mcg PO DAILY 07/11/22 08/25/23 Unknown History mcg (400 unit) tablet (Vitamin D3) Physical Exam 2 Vital Signs and Narrative: Vital Signs: Last Vital Signs Temp 97.6 F 08/31/23 23:34 Pulse 84 08/31/23 23:34 Resp 30 H 08/31/23 23:34 BP 132/87 08/31/23 23:34 Pulse Ox 85 L 08/31/23 23:34 O2 Del Method Room Air 08/31/23 23:34 BMI result Body Mass Index 13.8 Middle-aged female in mild distress on supplemental oxygen Neck supple, no JVD Regular rate and rhythm, S1-S2 heard Bilateral crackles without wheezing Abdomen soft nontender, no guarding, no rigidity Patient is awake, alert and oriented to self, place, disoriented to time ; no focal motor deficit Psych: Normal mood No pedal edema Results Labs 08/31/23 23:45 08/31/23 23:45 Labs: Laboratory Results - last 24 hr 08/31/23 08/31/23 08/31/23 23:39 23:45 23:49 MCV 90.6 MCH 29.4 MCHC 32.4 RDW 15.6 Plt Count 245 MPV 9.1 L Immature Gran % (Auto) 0.1 Neut % (Auto) 75.2 H Lymph % (Auto) 11.4 L [place] % (Auto) 7.8 Eos % (Auto) 5.1 H Baso % (Auto) 0.4 Lymph # (Auto) 0.8 L [place] # (Auto) 0.6 Eos # (Auto) 0.4 Baso # (Auto) 0.0 Abs Immat Gran (auto) 0.01 Absolute Neuts (auto) 5.3 Absolute Nucleated RBC 0.000 Nucleated RBC % (auto) 0.0 PT 11.7 INR 1.0 VBG pH 7.40 VBG pCO2 69 VBG pO2 43 VBG HCO3 43 H VBG O2 Saturation 64.0 VBG Base Excess 15.5 Anion Gap 15 Estim Creat Clear Calc 33.3 Estimated GFR > 60 Random Glucose 361 H* Lactic Acid 1.0 Calcium 9.9 Magnesium 1.7 Total Bilirubin 0.3 Direct Bilirubin 0.2 AST 11 ALT 11 Alkaline Phosphatase 79 Troponin I High Sens 4.2 B-Natriuretic Peptide 252 H Total Protein 6.9 Albumin 3.1 L Influenza Type A (PCR) NEGATIVE Influenza Type B (PCR) NEGATIVE RSV RNA Qual (PCR) NEGATIVE SARS-CoV-2 RNA (RT-PCR) NEGATIVE Imaging Radiologist's Impressions: Impressions Chest X-Ray 08/31/23 23:34 IMPRESSION: Hyperinflated lungs with increased interstitial markings and groundglass opacities throughout both lungs slightly more prominent than 07/11/2022 and 07/01/2023. Findings are suggestive of chronic parenchymal changes. Superimposed pneumonitis cannot be excluded. Chest CTA 09/01/23 00:50 IMPRESSION: 1. No pulmonary embolus identified. 2. Moderately extensive multifocal regions of groundglass opacity bilaterally. Impacted airways most prominently in the bilateral lower lobes, lingula, and right middle lobe. Patchy areas of denser consolidation in the basilar lower lobes. Appearance is nonspecific and may be secondary to aspiration or multifocal pneumonia. 3. Moderate to severe compression deformity of T9, age-indeterminate. VTE: negative. Assessment and Plan (1) Hypoxia: Status: Acute (2) Multifocal pneumonia: Status: Acute Plan This is a 78-year-old female with pertinent history of suc-gikpljm-kcjjagqec diabetes mellitus, essential hypertension, chronic hypoxemic respiratory failure due to pneumonia with 1-2 L baseline oxygen as needed who presents to the emergency department for evaluation of dyspnea. #. Acute on chronic hypoxemic respiratory failure due to multifocal pneumonia: Will admit patient with supplemental oxygen. Initiating empiric IV antibiotics. Sputum culture and blood culture pending. Monitor O2 saturation and wean as tolerated. Concern for aspiration, will keep NPO until patient passes swallow screen #. Krf-uhisxhu-lqbkxzixf diabetes mellitus with hyperglycemia: Initiating basal plus insulin regimen #. Essential hypertension: Continue home antihypertensives #. Protein calorie malnutrition: Patient is underweight with BMI of 13. Nutrition consult Med rec pending DVT prophylaxis: Lovenox Full code Admit as inpatient and will require two night minimum hospital stay for IV antibiotics, supplemental oxygen (as above), which is not possible in a lesser acute setting. Quality Stroke Does the patient have a stroke diagnosis?: No VTE Prior VTE?: No VTE Risk Level:: Medical - moderate - high VTE Device Contraindication: Treatment Not Indicated VTE Drug Contraindication: N/A - Med Ordered
[2023-09-01 03:15] LABS: Glucose, Whole Blood 175 mg/dL (60-115)
[2023-09-01] MEDS: Enoxaparin Sodium 40 MG/0.4 ML SYRINGE SUBCUT (03:32)
[2023-09-01] MEDS: Insulin Glargine,Hum.rec.anlog 100 UNIT/ML 10 ML VIAL SUBCUT ×2 (03:32→21:48)
[2023-09-01 05:31] LABS: MANUAL DIFF FLAG NO
[2023-09-01 05:35] LABS: Basophils Percent Auto 0.5 % (0-2); Eosinophils Absolute Auto 0.6 X10*3/uL (0.0-0.4); Eosinophils Percent Auto 6.9 % (0-4); Hematocrit 37.3 % (37.0-47.0); Hemoglobin 11.8 g/dl (12.0-16.0); Imm Gran Abs Auto 0.04 X10*3/uL (0.00-0.03); Imm Gran Pct Auto 0.5 % (0.0-0.4); Lymphocytes Absolute Auto 0.9 X10*3/uL (1.2-4.9); Mean Corpuscular HGB Conc 31.6 g/dl (31.0-35.0); Mean Corpuscular Hemoglobin 29.4 pg (27.0-33.0); Mean Platelet Volume 9.4 fL (9.4-12.3); Monocytes Absolute Auto 0.8 X10*3/uL (0.1-1.2); Monocytes Percent Auto 9.4 % (2-11); Neutrophils Absolute Auto 5.8 x10*3/uL (2.0-8.3); Neutrophils Percent Auto 71.7 % (45-73); Platelet Count 271 X10*3/uL (160-400); Red Blood Count 4.01 X10*6/uL (4.20-5.50); Red Cell Distribution Width 15.5 % (11.0-16.0); White Blood Count 8.1 X10*3/uL (4.8-10.8)
[2023-09-01 05:55] LABS: Anion Gap 9 (12-20); Blood Urea Nitrogen 24 mg/dL (9-16); Calcium 8.9 mg/dL (8.4-10.2); Carbon Dioxide 31 mmol/L (22-29); Chloride 104 mmol/L (96-108); Creatinine Clr Calc Pharmacy 38.1; Estimated Glomerular Filt Rate > 60; Glucose Random 181 mg/dL (60-115); Sodium 140 mmol/L (135-145)
--- NOTE | 2023-09-01 06:50 | PC.NURSE ---
Pt titrated off of oxy mask down to 6L nasal cannula. O2 sat 100% on 6L, titrated down to 2L nasal cannula. O2 sat 99% at this time.
[2023-09-01 06:53] VITALS: PULSE 85
[2023-09-01 07:11] VITALS: O2SAT 95
--- NOTE | 2023-09-01 07:50 | HO.PM.IMPN ---
Subjective Subjective Date of Service: 09/01/23 Interval History: follow-up on acute hypoxic respiratory failure due to multifocal pneumonia. Interval history: her breathing is better, ans seems more comfotaable, she is on oxyen at home but could not tell what the reason is Physical Exam Vital Signs: Vital Signs: Last Vital Signs Temp 98.5 F 09/01/23 02:25 Pulse 83 09/01/23 02:25 Resp 22 H 09/01/23 02:25 BP 133/87 09/01/23 02:25 Pulse Ox 95 09/01/23 07:11 O2 Del Method Nasal Cannula 09/01/23 07:11 O2 Flow Rate 4 09/01/23 02:25 Oxygen Flow Rate 2 09/01/23 07:11 BMI result Body Mass Index 13.8 General: AO X 3, no acute distress, frail and cachectic looking Resp: beto rhonchi, normal respiratory effort CVS: S1,S2,RRR GI: +BS, NT, no distention Skin: No rash Neuro: motor grossly intact Psych: appropriate affect Objective Data Active Medications Acetaminophen (Acetaminophen 325 Mg Tablet) 650 mg PO Q6H PRN PRN Reason: Pain, Mild (Pain Scale 1-3) Dextrose (Dextrose 50 % 25 Gm/50 Ml Syringe) 25 gm IVPUSH Q15M PRN; Protocol PRN Reason: per Hypoglycemia Standing Ord. Enoxaparin Sodium (Enoxaparin Sodium 40 Mg/0.4 Ml Syringe) 40 mg SUBCUT DAILY@0600 [facility] Last Admin: 09/01/23 03:32 Dose: 40 mg Documented By: HERBERT Glucose (Glucose Gel 15 Gm Gel..Gram.) 15 gm PO Q15M PRN; Protocol PRN Reason: per Hypoglycemia Standing Ord. Ceftriaxone Sodium 1 gm/ (Sodium Chloride) 50 mls @ 100 mls/hr IV Q24H MARBELLA Azithromycin 500 mg/ Sodium (Chloride) 250 mls @ 125 mls/hr IV Q24H [facility] Insulin Glargine (Insulin Glargine,Hum.Rec.Anlog 100 Unit/Ml 10 Ml Vial) 5 unit SUBCUT BEDTIME [facility] Last Admin: 09/01/23 03:32 Dose: 5 unit Documented By: HERBERT Insulin Human Lispro (Insulin Lispro 100 Unit/Ml 3 Ml Vial) 0 unit SUBCUT QIDACHS [facility]; Protocol Melatonin (Melatonin 3 Mg Tablet) 6 mg PO BEDTIME PRN PRN Reason: Insomnia Ondansetron HCl (Ondansetron Hcl 4 Mg/2 Ml Vial) 4 mg IVPUSH Q8H PRN PRN Reason: Nausea and Vomiting Sodium Chloride (0.9 % Sodium Chloride Flush 3 Ml Syringe) 3 ml IVFLUSH QSHIFT [facility] Labs 09/01/23 04:57 09/01/23 04:57 Labs: Laboratory Results - last 24 hr 08/31/23 08/31/23 08/31/23 23:39 23:45 23:49 MCV 90.6 MCH 29.4 MCHC 32.4 RDW 15.6 Plt Count 245 MPV 9.1 L Immature Gran % (Auto) 0.1 Neut % (Auto) 75.2 H Lymph % (Auto) 11.4 L [place] % (Auto) 7.8 Eos % (Auto) 5.1 H Baso % (Auto) 0.4 Lymph # (Auto) 0.8 L [place] # (Auto) 0.6 Eos # (Auto) 0.4 Baso # (Auto) 0.0 Abs Immat Gran (auto) 0.01 Absolute Neuts (auto) 5.3 Absolute Nucleated RBC 0.000 Nucleated RBC % (auto) 0.0 PT 11.7 INR 1.0 VBG pH 7.40 VBG pCO2 69 VBG pO2 43 VBG HCO3 43 H VBG O2 Saturation 64.0 VBG Base Excess 15.5 Anion Gap 15 Estim Creat Clear Calc 33.3 Estimated GFR > 60 POC Glucose Random Glucose 361 H* Lactic Acid 1.0 Calcium 9.9 Magnesium 1.7 Total Bilirubin 0.3 Direct Bilirubin 0.2 AST 11 ALT 11 Alkaline Phosphatase 79 Troponin I High Sens 4.2 B-Natriuretic Peptide 252 H Total Protein 6.9 Albumin 3.1 L Influenza Type A (PCR) NEGATIVE Influenza Type B (PCR) NEGATIVE RSV RNA Qual (PCR) NEGATIVE SARS-CoV-2 RNA (RT-PCR) NEGATIVE 09/01/23 09/01/23 03:11 04:57 MCV 93.0 MCH 29.4 MCHC 31.6 RDW 15.5 Plt Count 271 MPV 9.4 Immature Gran % (Auto) 0.5 H Neut % (Auto) 71.7 Lymph % (Auto) 11.0 L [place] % (Auto) 9.4 Eos % (Auto) 6.9 H Baso % (Auto) 0.5 Lymph # (Auto) 0.9 L [place] # (Auto) 0.8 Eos # (Auto) 0.6 H Baso # (Auto) 0.0 Abs Immat Gran (auto) 0.04 H Absolute Neuts (auto) 5.8 Absolute Nucleated RBC 0.000 Nucleated RBC % (auto) 0.0 PT INR VBG pH VBG pCO2 VBG pO2 VBG HCO3 VBG O2 Saturation VBG Base Excess Anion Gap 9 L Estim Creat Clear Calc 38.1 Estimated GFR > 60 POC Glucose 175 H Random Glucose 181 H Lactic Acid Calcium 8.9 D Magnesium Total Bilirubin Direct Bilirubin AST ALT Alkaline Phosphatase Troponin I High Sens B-Natriuretic Peptide Total Protein Albumin Influenza Type A (PCR) Influenza Type B (PCR) RSV RNA Qual (PCR) SARS-CoV-2 RNA (RT-PCR) Assessment and Plan (1) Multifocal pneumonia: Status: Acute Plan 78-year-old female with pertinent history of ejh-ncpbxba-njxhziayr diabetes mellitus, essential hypertension, chronic hypoxemic respiratory failure due to pneumonia with 1-2 L baseline oxygen as needed who presents to the emergency department for evaluation of dyspnea. Acute on chronic hypoxemic respiratory failure due to multifocal pneumonia -treat underlying Pneumonia with abx -oxygen with gaol of O2 88 to 92 -pulmonology consult if worsening Multifocal PNA with, with initial concern of asspiration but no sings of aspiration on swallowig test -continue Azithromycin + Ceftriaxone -follow cultures -speech swallow eval d/t cocern for aspiration--safe for regular food Fsn-rgebftr-wkggaqzys diabetes mellitus with hyperglycemia -continue sliding scale + Lantus, hold Metformin until eating, check glucose per protocol, check A1C Hypertension: BP within normal. Med rec not yet completed Severe Protein calorie malnutrition: Nutrition consult, suplement Med rec pending DVT prophylaxis: Lovenox Full code hospitalization for acute hypoxic resp failure due to PNA and in need for IV Abx A Quality Stroke Does the patient have a stroke diagnosis?: No VTE Prior VTE?: No VTE Risk Level:: Medical - moderate - high VTE Device Contraindication: Treatment Not Indicated VTE Drug Contraindication: N/A - Med Ordered
[2023-09-01 08:19] LABS: Glucose, Whole Blood 123 mg/dL (60-115)
[2023-09-01 10:25] VITALS: BP 115/65; PULSE 87; RESP 23; TEMP 37.1; O2SAT 92
[2023-09-01] MEDS: 0.9 % Sodium Chloride Flush 3 ML SYRINGE IVFLUSH ×3 (10:26→22:13)
--- NOTE | 2023-09-01 11:04 | PHA.MEDREC ---
Pharmacy Consult ? Medication Reconciliation Pharmacy has completed the medication reconciliation. Spoke to patient and confirmed medication list. Patient was prescribed metformin 500 mg tid but only takes it as bid (due to side effect of diarrhea when she takes it tid). She also felt palpitations, not sure if it's due to taking metoprolol, so she spoke to her doctor (Dorys Munson). Her doctor then changed her to diltiazem 30 mg but patient was worried about the side effects of diltiazem so she hasn't started taking it yet.
[2023-09-01 11:17] LABS: Estimated Average Glucose 272 mg/dL; Hemoglobin A1c % 11.1 % (<6.0)
--- NOTE | 2023-09-01 11:36 | MHC.CM.PN ---
Met with patient in regards to discharge planning. Patient lives with her , has a walker at home if needed and has PRN oxygen at home through [facility]. PCP verified. Copy of HCP verified to be on file. Patient has not received any Covid vaccines. IMM explained and signed. Patient was inquiring about changing filters on her home concentrator and portable tanks. Patient was encouraged to reach out to [facility] for assistance with this. Patient's will transport her home when medically stable. Continue to monitor for d/c needs.
--- NOTE | 2023-09-01 11:55 | MHC.SL.SWA ---
Speech Pathologist Impression: WFL Risk of Aspiration Due to: History of Pneumonia Dysphasia Diet Status: Start on REGULAR/THIN w/ periodic supervision Liquid Consistency and Strategies for Safe Swallow: Liquid Intake Recommendation: Thin Liquid Intake Strategies: Small Sips Solid Food Consistency: Dietary Recommendations: Regular Additional Modifications to Solid Foods: Patient seen for bedside dysphagia evaluation this morning while in the ED. Patient was able to feed herself without difficulty. She consumed crackers and water by self-administered cup. Oral phase was timely and efficient. Timely swallow. Good oral clearance. No overt s/s of aspiration with PO intake. Patient was recommended UPGRADE from NPO, START on REGULAR solids and THIN liquids with intermittent supervision and aspiration precautions. Oral Medication Intake: Whole with Liquid Please contact the pharmacy regarding appropriate crushable or liquid drug formulations that are available whenever modified delivery is recommended. Compensatory Strategies and Precautions to be Taken for Safe Swallow: Sitting Upright (90 deg) No Straw Small Bites and Sips Alternate Liquids/Solids Rate of Ingestion Change Supervision While Eating and Drinking for Safe Swallow: Intermittent Supervision Swallowing Recommended Treatments: Compens. Strategy Educat. Recommendation for Speech: Inpatient Speech Therapy Comment: 1 f/u to monitor Frequency/Duration: Date Range for Service Req: Timeline to reassess: Ride Mechanic Clinican/Clinical Fellow: No Supervisory Statement: I have reviewed and agree with the student/clinical fellow's documentation: N/A Speech Language Pathologist: Chayo Mandel M.A., CCC-LAY OUT MAKER
[2023-09-01] MEDS: Insulin Lispro 100 UNIT/ML 3 ML VIAL SUBCUT ×3 (13:08→21:48)
[2023-09-01 13:09] LABS: Glucose, Whole Blood 225 mg/dL (60-115)
--- NOTE | 2023-09-01 13:10 | PC.NURSE ---
insulin administered per sliding scale. pt continues to rest in bed in no apparent distress at this time. pt remains on 2L via NC. no sob/wob noted. respirations even and unlabored. pt positioned upright to promote patent airway. pt c/o slight headache - rating pain at a 2/10. requesting medication. pt waiting for bed assignment at this time. call roland placed within reach.
[2023-09-01] MEDS: Acetaminophen 325 MG TABLET 650 MG PO (13:37)
--- NOTE | 2023-09-01 13:50 | PC.NURSE ---
admission worksheet complete. transport notified that pt is ready to be transported upstairs at this time.
[2023-09-01 14:07] VITALS: BMI 13.8
--- NOTE | 2023-09-01 14:26 | MHC.CLN ---
NUTRITION CONSULT FOR UNDERWEIGHT. VISITED PATIENT IN ED. WANTS TO CONTINUE DIABETIC DIET. READS FOOD LABELS FOR CARBOHYDRATE CONTENT. BROUGHT ENSURE MAX PROTEIN TO PATIENT AND WOULD NOT TRY UNTIL SHE READ THE LABEL. AGREES TO ENSURE MAX PROTEIN BID. PROVIDES 300 KCALS, 60 G PROTEIN. QUALIFIES SEVERELY MALNOURISHED WITH SEVERE DEPLETION OF BODY FAT AND MUSCLE MASS NOTED. OBTAINED FOOD PREFERENCES FROM PATIENT AND COMMUNICATED WITH [facility]. PROVIDE FOOD PREFERENCES AND ENCOURAGE PO ABLE. SEE CLINICAL NUTRITION ASSESSMENT 09/01/23.
--- NOTE | 2023-09-01 14:54 | PC.NURSE ---
pt being transported upstairs at this time.
[2023-09-01 15:06] VITALS: BP 135/71; PULSE 93; RESP 16; TEMP 36.6; O2SAT 92
[2023-09-01 16:23] LABS: Glucose, Whole Blood 272 mg/dL (60-115)
[2023-09-01 19:37] VITALS: BP 131/67; PULSE 96; RESP 18; TEMP 36.6; O2SAT 93
[2023-09-01 20:18] LABS: Glucose, Whole Blood 245 mg/dL (60-115)
[2023-09-02] VITALS (9 sets, daily range): BP systolic 135–147; BP diastolic 68–82; PULSE 87–100; RESP 18–32; TEMP 36.2–36.6; O2SAT 87–98
[2023-09-02 00:01] LABS: Glucose, Whole Blood 146 mg/dL (60-115)
[2023-09-02 04:42] LABS: Glucose, Whole Blood 107 mg/dL (60-115)
[2023-09-02] MEDS: Enoxaparin Sodium 40 MG/0.4 ML SYRINGE SUBCUT (06:13)
[2023-09-02 07:49] LABS: Glucose, Whole Blood 79 mg/dL (60-115)
[2023-09-02] MEDS: 0.9 % Sodium Chloride Flush 3 ML SYRINGE IVFLUSH ×3 (09:01→21:20)
[2023-09-02] MEDS: Ascorbic Acid 500 MG TABLET PO (09:01)
[2023-09-02] MEDS: Cholecalciferol (Vitamin D3) 10 MCG TABLET PO (09:01)
[2023-09-02] MEDS: Acetaminophen 325 MG TABLET PO ×2 (09:05→18:04)
--- NOTE | 2023-09-02 09:05 | P.PNIM_ITS ---
Subjective Subjective Date of Service: 09/02/23 Interval History: follow-up on acute hypoxic respiratory failure due to multifocal pneumonia. Interval history: she continues to make progress, still requiring more O2 Overall remains hypoxic and requiring oxygen Physical Exam 2 Vital Signs: Vital Signs: Last Vital Signs Temp 97.9 F 09/02/23 07:41 Pulse 90 09/02/23 07:41 Resp 24 H 09/02/23 07:41 BP 138/74 09/02/23 07:41 Pulse Ox 91 L 09/02/23 07:41 O2 Del Method Nasal Cannula 09/02/23 07:41 O2 Flow Rate 4 09/02/23 07:41 Oxygen Flow Rate 2 09/01/23 07:11 BMI result Body Mass Index 13.8 General: AO X 3, no acute distress, frail and cachectic looking Resp: beto rhonchi, some wheezing, normal respiratory effort CVS: S1,S2,RRR GI: +BS, NT, no distention Skin: No rash Neuro: motor grossly intact Psych: appropriate affect Objective Data Active Medications Acetaminophen (Acetaminophen 325 Mg Tablet) 325 mg PO Q6H PRN PRN Reason: Pain, Mild (Pain Scale 1-3) Ascorbic Acid (Ascorbic Acid 500 Mg Tablet) 500 mg PO DAILY [facility] Last Admin: 09/02/23 09:01 Dose: 500 mg Documented By: DIOGO Dextrose (Dextrose 50 % 25 Gm/50 Ml Syringe) 25 gm IVPUSH Q15M PRN; Protocol PRN Reason: per Hypoglycemia Standing Ord. Enoxaparin Sodium (Enoxaparin Sodium 40 Mg/0.4 Ml Syringe) 40 mg SUBCUT DAILY@0600 [facility] Last Admin: 09/02/23 06:13 Dose: 40 mg Documented By: TORSTEN Glucose (Glucose Gel 15 Gm Gel..Gram.) 15 gm PO Q15M PRN; Protocol PRN Reason: per Hypoglycemia Standing Ord. Ceftriaxone Sodium 1 gm/ (Sodium Chloride) 50 mls @ 100 mls/hr IV Q24H [facility] Last Infusion: 09/01/23 22:43 Dose: Infused Documented By: TORSTEN Azithromycin 500 mg/ Sodium (Chloride) 250 mls @ 125 mls/hr IV Q24H [facility] Last Infusion: 09/02/23 00:15 Dose: Infused Documented By: TORSTEN Insulin Glargine (Insulin Glargine,Hum.Rec.Anlog 100 Unit/Ml 10 Ml Vial) 5 unit SUBCUT BEDTIME [facility] Last Admin: 09/01/23 21:48 Dose: 5 unit Documented By: TORSTEN Insulin Human Lispro (Insulin Lispro 100 Unit/Ml 3 Ml Vial) 0 unit SUBCUT QIDACHS [facility]; Protocol Last Admin: 09/02/23 07:48 Dose: Not Given Documented By: DIOGO Non-Admin Reason: No Insulin Coverage Melatonin (Melatonin 3 Mg Tablet) 6 mg PO BEDTIME PRN PRN Reason: Insomnia Ondansetron HCl (Ondansetron Hcl 4 Mg/2 Ml Vial) 4 mg IVPUSH Q8H PRN PRN Reason: Nausea and Vomiting Sodium Chloride (0.9 % Sodium Chloride Flush 3 Ml Syringe) 3 ml IVFLUSH QSHIFT [facility] Last Admin: 09/02/23 09:01 Dose: 3 ml Documented By: DIOGO Vitamin D (Cholecalciferol (Vitamin D3) 10 Mcg Tablet) 10 mcg PO DAILY [facility] Last Admin: 09/02/23 09:01 Dose: 10 mcg Documented By: DIOGO Labs 09/01/23 04:57 09/01/23 04:57 Labs: Laboratory Results - last 24 hr 09/01/23 09/01/23 09/01/23 04:57 13:00 16:18 POC Glucose 225 H 272 H Estimat Average Glucose 272 Hemoglobin A1c % 11.1 H 09/01/23 09/01/23 09/02/23 20:10 23:54 04:38 POC Glucose 245 H 146 H 107 Estimat Average Glucose Hemoglobin A1c % 09/02/23 07:45 POC Glucose 79 Estimat Average Glucose Hemoglobin A1c % Microbiology Microbiology Results: Microbiology 09/01/23 01:49 Blood Culture - Preliminary Blood - Venous No growth after 24 hours. 09/01/23 01:49 Blood Culture - Preliminary Blood - Venous No growth after 24 hours. Assessment and Plan (1) Multifocal pneumonia: Status: Acute Plan 78-year-old female with pertinent history of xzo-wgcobfu-uzhznamvx diabetes mellitus, essential hypertension, chronic hypoxemic respiratory failure due to copd with 1-2 L baseline oxygen as needed who presents to the emergency department for evaluation of dyspnea. Acute on chronic hypoxemic respiratory failure due to multifocal pneumonia -treat underlying Pneumonia with abx -oxygen with gaol of O2 88 to 92 -pulmonology consult if worsening COPD with probably exacerbation -Add inhalers -IV steroid, solumedrol 20 bid Multifocal PNA with, with initial concern of asspiration but no sings of aspiration on swallowig test -continue Azithromycin + Ceftriaxone for CAP -follow cultures -speech swallow eval d/t cocern for aspiration--safe for regular food Vzw-epopjhe-dbdlcqkkd diabetes mellitus with hyperglycemia -continue sliding scale + Lantus, hold Metformin for 48 post iv contrast, check glucose per protocol, A1C =11 Hypertension: BP within normal. Not on meds Severe Protein calorie malnutrition: Nutrition consult, suplement DVT prophylaxis: Lovenox Full code hospitalization for acute hypoxic resp failure due to PNA and in need for IV Abx Quality Stroke Does the patient have a stroke diagnosis?: No VTE Prior VTE?: No VTE Risk Level:: Medical - moderate - high VTE Device Contraindication: Treatment Not Indicated VTE Drug Contraindication: N/A - Med Ordered
[2023-09-02] MEDS: methylPREDNISolone Sod Succ 40 MG/ML VIAL 20 MG IVPUSH ×2 (10:10→21:12)
[2023-09-02] MEDS: Albuterol Sulfate (0.083%) 2.5 MG/3 ML VIAL.NEB INHALE ×3 (11:25→20:11)
[2023-09-02 11:37] LABS: Glucose, Whole Blood 256 mg/dL (60-115)
[2023-09-02] MEDS: Insulin Lispro 100 UNIT/ML 3 ML VIAL SUBCUT ×3 (11:51→21:20)
[2023-09-02 15:57] LABS: Glucose, Whole Blood 318 mg/dL (60-115)
[2023-09-02 21:08] LABS: Glucose, Whole Blood 321 mg/dL (60-115)
[2023-09-02] MEDS: Insulin Glargine,Hum.rec.anlog 100 UNIT/ML 10 ML VIAL SUBCUT (21:19)
[2023-09-02] MEDS: cefTRIAXone sodium 1 GM in 0.9 % Sodium Chloride 50 ML IV (21:47)
[2023-09-02] MEDS: Azithromycin 500 MG in 0.9 % Sodium Chloride 250 ML 125 MG IV (22:20)
[2023-09-03] VITALS (9 sets, daily range): BP systolic 127–155; BP diastolic 70–83; PULSE 80–106; RESP 16–24; TEMP 36.2–36.7; O2SAT 88–98
[2023-09-03] MEDS: Magnesium Hydrox/Alum Hydrox 30 ML ORAL.SUSP 15 ML PO (05:09)
[2023-09-03] MEDS: Enoxaparin Sodium 40 MG/0.4 ML SYRINGE SUBCUT (05:09)
[2023-09-03 07:42] LABS: Glucose, Whole Blood 170 mg/dL (60-115)
[2023-09-03] MEDS: Insulin Lispro 100 UNIT/ML 3 ML VIAL SUBCUT ×6 (07:48→21:14)
[2023-09-03] MEDS: 0.9 % Sodium Chloride Flush 3 ML SYRINGE IVFLUSH ×3 (07:48→21:14)
[2023-09-03] MEDS: Albuterol Sulfate (0.083%) 2.5 MG/3 ML VIAL.NEB INHALE ×4 (07:54→20:31)
[2023-09-03] MEDS: Ascorbic Acid 500 MG TABLET PO (07:59)
[2023-09-03] MEDS: Cholecalciferol (Vitamin D3) 10 MCG TABLET PO (07:59)
--- NOTE | 2023-09-03 08:04 | P.PNIM_ITS ---
Subjective Subjective Date of Service: 09/03/23 Interval History: follow-up on acute hypoxic respiratory failure due to multifocal pneumonia. Interval history: She is feeling better today, oxygenation seems better as well, no fever or chills of note, oxygen level is poor in the finger and has better result in the left big toe with huge discrepencies Physical Exam 2 Vital Signs: Vital Signs: Last Vital Signs Temp 97.2 F 09/03/23 07:40 Pulse 83 09/03/23 07:57 Resp 20 09/03/23 07:57 BP 140/70 H 09/03/23 07:40 Pulse Ox 93 09/03/23 07:40 O2 Del Method Nasal Cannula 09/03/23 07:40 O2 Flow Rate 2 09/03/23 07:40 Oxygen Flow Rate 2 09/01/23 07:11 BMI result Body Mass Index 13.8 General: AO X 3, no acute distress, frail and cachectic looking Resp: beto rhonchi, some wheezing, normal respiratory effort CVS: S1,S2,RRR GI: +BS, NT, no distention Skin: No rash Neuro: motor grossly intact Psych: appropriate affect Objective Data Active Medications Acetaminophen (Acetaminophen 325 Mg Tablet) 325 mg PO Q6H PRN PRN Reason: Pain, Mild (Pain Scale 1-3) Last Admin: 09/02/23 18:04 Dose: 325 mg Documented By: DIOGO Albuterol Sulfate (Albuterol Sulfate (0.083%) 2.5 Mg/3 Ml Vial.Neb) 2.5 mg INHALE RQ4H WHILE AWAKE [facility] Last Admin: 09/03/23 07:54 Dose: 2.5 mg Documented By: CALLIE Albuterol Sulfate (Albuterol Sulfate (0.083%) 2.5 Mg/3 Ml Vial.Neb) 2.5 mg INHALE Q2H PRN PRN Reason: Shortness of Breath/Wheezing Ascorbic Acid (Ascorbic Acid 500 Mg Tablet) 500 mg PO DAILY [facility] Last Admin: 09/03/23 07:59 Dose: 500 mg Documented By: MED Aspirin (Aspirin 81 Mg Tab.Chew) 81 mg PO DAILY PRN PRN Reason: Pain, Moderate(Pain Scale 4-6) Dextrose (Dextrose 50 % 25 Gm/50 Ml Syringe) 25 gm IVPUSH Q15M PRN; Protocol PRN Reason: per Hypoglycemia Standing Ord. Enoxaparin Sodium (Enoxaparin Sodium 40 Mg/0.4 Ml Syringe) 40 mg SUBCUT DAILY@0600 [facility] Last Admin: 09/03/23 05:09 Dose: 40 mg Documented By: TORSTEN Glucose (Glucose Gel 15 Gm Gel..Gram.) 15 gm PO Q15M PRN; Protocol PRN Reason: per Hypoglycemia Standing Ord. Ceftriaxone Sodium 1 gm/ (Sodium Chloride) 50 mls @ 100 mls/hr IV Q24H [facility] Last Infusion: 09/02/23 22:17 Dose: Infused Documented By: TORSTEN Azithromycin 500 mg/ Sodium (Chloride) 250 mls @ 125 mls/hr IV Q24H [facility] Last Infusion: 09/03/23 00:20 Dose: Infused Documented By: TORSTEN Insulin Glargine (Insulin Glargine,Hum.Rec.Anlog 100 Unit/Ml 10 Ml Vial) 5 unit SUBCUT BEDTIME [facility] Last Admin: 09/02/23 21:19 Dose: 5 unit Documented By: TORSTEN Insulin Human Lispro (Insulin Lispro 100 Unit/Ml 3 Ml Vial) 0 unit SUBCUT QIDACHS [facility]; Protocol Last Admin: 09/03/23 07:48 Dose: 2 unit Documented By: MED Melatonin (Melatonin 3 Mg Tablet) 6 mg PO BEDTIME PRN PRN Reason: Insomnia Methylprednisolone Sodium Succinate (Methylprednisolone Sod Succ 40 Mg/Ml Vial) 20 mg IVPUSH Q12H [facility] Last Admin: 09/02/23 21:12 Dose: 20 mg Documented By: TORSTEN Multivitamins/Vitamin C (Multivitamin Tablet) 1 tab PO DAILY [facility] Ondansetron HCl (Ondansetron Hcl 4 Mg/2 Ml Vial) 4 mg IVPUSH Q8H PRN PRN Reason: Nausea and Vomiting Sodium Chloride (0.9 % Sodium Chloride Flush 3 Ml Syringe) 3 ml IVFLUSH QSHIFT [facility] Last Admin: 09/03/23 07:48 Dose: 3 ml Documented By: MED Vitamin D (Cholecalciferol (Vitamin D3) 10 Mcg Tablet) 10 mcg PO DAILY [facility] Last Admin: 09/03/23 07:59 Dose: 10 mcg Documented By: MED Labs 09/01/23 04:57 09/01/23 04:57 Labs: Laboratory Results - last 24 hr 09/02/23 09/02/23 09/02/23 11:32 15:46 20:52 POC Glucose 256 H 318 H 321 H 09/03/23 07:38 POC Glucose 170 H Microbiology Microbiology Results: Microbiology 09/01/23 01:49 Blood Culture - Preliminary Blood - Venous No growth after 48 hours. 09/01/23 01:49 Blood Culture - Preliminary Blood - Venous No growth after 48 hours. Assessment and Plan (1) Multifocal pneumonia: Status: Acute Plan 78-year-old female with pertinent history of ecu-dykgita-gzdjexzlr diabetes mellitus, essential hypertension, chronic hypoxemic respiratory failure due to copd with 1-2 L baseline oxygen as needed who presents to the emergency department for evaluation of dyspnea. Acute on chronic hypoxemic respiratory failure due to multifocal pneumonia -treat underlying Pneumonia with abx -oxygen with gaol of O2 88 to 92 -pulmonology consult if worsening COPD with probably exacerbation -continue inhalers -IV steroid, solumedrol 20 bid Multifocal PNA with, with initial concern of asspiration but no sings of aspiration on swallowig test, clinically responding to IV -continue Azithromycin + Ceftriaxone for CAP -cultures thus far negative, -speech swallow eval d/t cocern for aspiration--safe for regular food -repeat CXR -if continues to improve, change to PO Abx by tomorrow Yuw-retiejn-swkeodumj diabetes mellitus with hyperglycemia -continue sliding scale + Lantus, resume metformin, check glucose per protocol, A1C =11 Hypertension: BP within normal. Not on meds Severe Protein calorie malnutrition: Nutrition consult, suplement DVT prophylaxis: Lovenox Full code hospitalization for acute hypoxic resp failure due to PNA and in need for IV Abx Quality Stroke Does the patient have a stroke diagnosis?: No VTE Prior VTE?: No VTE Risk Level:: Medical - moderate - high VTE Device Contraindication: Treatment Not Indicated VTE Drug Contraindication: N/A - Med Ordered
[2023-09-03] MEDS: methylPREDNISolone Sod Succ 40 MG/ML VIAL 20 MG IVPUSH (09:50)
[2023-09-03] MEDS: Multivitamin TABLET 1 TAB PO (09:50)
[2023-09-03 11:18] LABS: Glucose, Whole Blood 373 mg/dL (60-115)
[2023-09-03] MEDS: metFORMIN HCl 500 MG TABLET PO ×2 (12:16→17:31)
[2023-09-03 16:28] LABS: Glucose, Whole Blood 343 mg/dL (60-115)
[2023-09-03] MEDS: Insulin Lispro 100 UNIT/ML 3 ML VIAL 7 UNIT SUBCUT (17:31)
[2023-09-03 20:31] LABS: Glucose, Whole Blood 323 mg/dL (60-115)
[2023-09-03] MEDS: methylPREDNISolone Sod Succ 40 MG/ML VIAL 10 MG IVPUSH (21:12)
[2023-09-03] MEDS: Insulin Glargine,Hum.rec.anlog 100 UNIT/ML 10 ML VIAL 10 UNIT SUBCUT (21:13)
[2023-09-03] MEDS: cefTRIAXone sodium 1 GM in 0.9 % Sodium Chloride 50 ML IV (21:14)
[2023-09-03] MEDS: Azithromycin 500 MG in 0.9 % Sodium Chloride 250 ML 125 MG IV (22:32)
[2023-09-04 03:50] VITALS: BP 149/95; PULSE 94; RESP 17; TEMP 36.7; O2SAT 93
[2023-09-04 05:01] LABS: Glucose, Whole Blood 114 mg/dL (60-115)
[2023-09-04] MEDS: Enoxaparin Sodium 40 MG/0.4 ML SYRINGE SUBCUT (05:45)
[2023-09-04 06:34] LABS: Hematocrit 36.4 % (37.0-47.0); Hemoglobin 11.8 g/dl (12.0-16.0); Mean Corpuscular HGB Conc 32.4 g/dl (31.0-35.0); Mean Corpuscular Hemoglobin 29.1 pg (27.0-33.0); Mean Corpuscular Volume 89.9 fL (80.0-98.0); Mean Platelet Volume 9.7 fL (9.4-12.3); Platelet Count 297 X10*3/uL (160-400); Red Blood Count 4.05 X10*6/uL (4.20-5.50); Red Cell Distribution Width 15.7 % (11.0-16.0); White Blood Count 9.3 X10*3/uL (4.8-10.8)
[2023-09-04 06:56] LABS: Anion Gap 12 (12-20); Blood Urea Nitrogen 31 mg/dL (9-16); Calcium 9.2 mg/dL (8.4-10.2); Carbon Dioxide 36 mmol/L (22-29); Chloride 100 mmol/L (96-108); Creatinine Clr Calc Pharmacy 40.4; Estimated Glomerular Filt Rate > 60; Glucose Random 122 mg/dL (60-115); Potassium 5.5 mmol/L (3.3-5.1); Sodium 142 mmol/L (135-145)
[2023-09-04 07:20] VITALS: BP 154/84; PULSE 91; RESP 18; TEMP 36; O2SAT 94
[2023-09-04 07:51] LABS: Glucose, Whole Blood 134 mg/dL (60-115)
[2023-09-04] MEDS: Multivitamin TABLET 1 TAB PO (09:36)
[2023-09-04] MEDS: Cholecalciferol (Vitamin D3) 10 MCG TABLET PO (09:36)
[2023-09-04] MEDS: metFORMIN HCl 500 MG TABLET PO ×2 (09:36→17:58)
[2023-09-04] MEDS: 0.9 % Sodium Chloride Flush 3 ML SYRINGE IVFLUSH ×3 (09:36→21:23)
[2023-09-04] MEDS: Ascorbic Acid 500 MG TABLET PO (09:36)
[2023-09-04] MEDS: methylPREDNISolone Sod Succ 40 MG/ML VIAL 10 MG IVPUSH ×2 (09:36→21:22)
--- NOTE | 2023-09-04 10:09 | MHC.CLN ---
F/U DIET=DIABETIC 1800 KCALS. ENSURE MAX PROTEIN BID PROVIDES 300 KCALS, 60 G PROTEIN. QUALIFIES SEVERELY MALNOURISHED WITH SEVERE DEPLETION OF BODY FAT AND MUSCLE MASS NOTED. PATIENT DID NOT WANT TO LIBERALIZE DIET TO REGULAR. PO INTAKE PER DOC USUALLY GOOD, 50-75%. PROVIDE FOOD PREFERENCES AND ENCOURAGE PO ABLE.
[2023-09-04 11:15] LABS: Glucose, Whole Blood 264 mg/dL (60-115)
[2023-09-04] MEDS: Insulin Lispro 100 UNIT/ML 3 ML VIAL SUBCUT ×3 (12:35→21:22)
--- NOTE | 2023-09-04 13:33 | MHC.CM.PN ---
pt recommends homewith pt referal made to [facility] will notify vna when dcd
--- NOTE | 2023-09-04 14:06 | MHC.SL.SWA ---
Speech Pathologist Impression: Risk of aspiration Risk of Aspiration Due to: History of Pneumonia Dysphasia Diet Status: No changes Liquid Consistency and Strategies for Safe Swallow: Liquid Intake Recommendation: Thin Liquid Intake Strategies: Small Sips No Straws Solid Food Consistency: Dietary Recommendations: Regular Additional Modifications to Solid Foods: Patient is tolerating REGULAR solids and THIN liquids (AVOID STRAWS). Recommend pills to be administered one at a time WHOLE with bites of PUREE. Continue with aspiration precautions and periodic supervision. Please re-refer if [employer] can be of further assistance. Oral Medication Intake: Whole with Puree Please contact the pharmacy regarding appropriate crushable or liquid drug formulations that are available whenever modified delivery is recommended. Compensatory Strategies and Precautions to be Taken for Safe Swallow: Sitting Upright (90 deg) No Straw Small Bites and Sips Alternate Liquids/Solids Rate of Ingestion Change Supervision While Eating and Drinking for Safe Swallow: Intermittent Supervision Swallowing Recommended Treatments: Compens. Strategy Educat. Recommendation for Speech: D/C Program Specialist Clinican/Clinical Fellow: No Supervisory Statement: I have reviewed and agree with the student/clinical fellow's documentation: N/A Speech Language Pathologist: Chayo Mandel M.A., [facility]
[2023-09-04 14:58] VITALS: PULSE 91; RESP 18; O2SAT 92
[2023-09-04] MEDS: Albuterol Sulfate (0.083%) 2.5 MG/3 ML VIAL.NEB INHALE ×2 (14:58→19:52)
--- NOTE | 2023-09-04 14:59 | HO.PM.IMPN ---
Subjective Subjective Date of Service: 10/03/23 Interval History: follow-up on acute hypoxic respiratory failure due to multifocal pneumonia. Interval history: Continue to feel better, breathing is comfortable, no fever or cough, no wheeze, blood sugars are better Physical Exam Vital Signs: Vital Signs: Last Vital Signs Temp 96.8 F 09/04/23 07:20 Pulse 91 09/04/23 14:58 Resp 18 09/04/23 14:58 BP 154/84 H 09/04/23 07:20 Pulse Ox 94 09/04/23 07:20 O2 Del Method Nasal Cannula 09/04/23 07:20 O2 Flow Rate 2 09/04/23 07:20 Oxygen Flow Rate 2 09/01/23 07:11 BMI result Body Mass Index 13.8 General: AO X 3, no acute distress Resp: CTA bilateral CVS: S1,S2,RRR GI: +BS, NT, no distention Skin: No rash, no accessory muslce use Neuro: motor grossly intact Psych: appropriate affect Objective Data Active Medications Acetaminophen (Acetaminophen 325 Mg Tablet) 325 mg PO Q6H PRN PRN Reason: Pain, Mild (Pain Scale 1-3) Last Admin: 09/02/23 18:04 Dose: 325 mg Documented By: DIOGO Albuterol Sulfate (Albuterol Sulfate (0.083%) 2.5 Mg/3 Ml Vial.Neb) 2.5 mg INHALE RQ4H WHILE AWAKE [facility] Last Admin: 09/04/23 14:58 Dose: 2.5 mg Documented By: MARISA Albuterol Sulfate (Albuterol Sulfate (0.083%) 2.5 Mg/3 Ml Vial.Neb) 2.5 mg INHALE Q2H PRN PRN Reason: Shortness of Breath/Wheezing Ascorbic Acid (Ascorbic Acid 500 Mg Tablet) 500 mg PO DAILY [facility] Last Admin: 09/04/23 09:36 Dose: 500 mg Documented By: COTEMA Aspirin (Aspirin 81 Mg Tab.Chew) 81 mg PO DAILY PRN PRN Reason: Pain, Moderate(Pain Scale 4-6) Dextrose (Dextrose 50 % 25 Gm/50 Ml Syringe) 25 gm IVPUSH Q15M PRN; Protocol PRN Reason: per Hypoglycemia Standing Ord. Enoxaparin Sodium (Enoxaparin Sodium 40 Mg/0.4 Ml Syringe) 40 mg SUBCUT DAILY@0600 [facility] Last Admin: 09/04/23 05:45 Dose: 40 mg Documented By: TORSTEN Glucose (Glucose Gel 15 Gm Gel..Gram.) 15 gm PO Q15M PRN; Protocol PRN Reason: per Hypoglycemia Standing Ord. Ceftriaxone Sodium 1 gm/ (Sodium Chloride) 50 mls @ 100 mls/hr IV Q24H [facility] Last Infusion: 09/03/23 21:44 Dose: Infused Documented By: TORSTEN Azithromycin 500 mg/ Sodium (Chloride) 250 mls @ 125 mls/hr IV Q24H [facility] Last Infusion: 09/04/23 00:32 Dose: Infused Documented By: TORSTEN Insulin Glargine (Insulin Glargine,Hum.Rec.Anlog 100 Unit/Ml 10 Ml Vial) 10 unit SUBCUT BEDTIME [facility] Last Admin: 09/03/23 21:13 Dose: 10 unit Documented By: TORSTEN Insulin Human Lispro (Insulin Lispro 100 Unit/Ml 3 Ml Vial) 0 unit SUBCUT QIDACHS [facility]; Protocol Last Admin: 09/04/23 12:35 Dose: 6 unit Documented By: JOSELYN Melatonin (Melatonin 3 Mg Tablet) 6 mg PO BEDTIME PRN PRN Reason: Insomnia Metformin HCl (Metformin Hcl 500 Mg Tablet) 500 mg PO BIDWM [facility] Last Admin: 09/04/23 09:36 Dose: 500 mg Documented By: PEPEEMA Methylprednisolone Sodium Succinate (Methylprednisolone Sod Succ 40 Mg/Ml Vial) 10 mg IVPUSH Q12H [facility] Last Admin: 09/04/23 09:36 Dose: 10 mg Documented By: PEPEEMA Multivitamins/Vitamin C (Multivitamin Tablet) 1 tab PO DAILY [facility] Last Admin: 09/04/23 09:36 Dose: 1 tab Documented By: PEPEEMA Ondansetron HCl (Ondansetron Hcl 4 Mg/2 Ml Vial) 4 mg IVPUSH Q8H PRN PRN Reason: Nausea and Vomiting Sodium Chloride (0.9 % Sodium Chloride Flush 3 Ml Syringe) 3 ml IVFLUSH QSHIFT [facility] Last Admin: 09/04/23 09:36 Dose: 3 ml Documented By: PEPEEMA Vitamin D (Cholecalciferol (Vitamin D3) 10 Mcg Tablet) 10 mcg PO DAILY [facility] Last Admin: 09/04/23 09:36 Dose: 10 mcg Documented By: JOSELYN Labs 09/04/23 05:45 09/04/23 05:45 Labs: Laboratory Results - last 24 hr 09/03/23 09/03/23 09/04/23 16:22 20:27 04:57 MCV MCH MCHC RDW Plt Count MPV Absolute Nucleated RBC Nucleated RBC % (auto) Anion Gap Estim Creat Clear Calc Estimated GFR POC Glucose 343 H 323 H 114 Random Glucose Calcium 09/04/23 09/04/23 09/04/23 05:45 07:24 11:07 MCV 89.9 MCH 29.1 MCHC 32.4 RDW 15.7 Plt Count 297 MPV 9.7 Absolute Nucleated RBC 0.000 Nucleated RBC % (auto) 0.0 Anion Gap 12 Estim Creat Clear Calc 40.4 Estimated GFR > 60 POC Glucose 134 H 264 H Random Glucose 122 H Calcium 9.2 Microbiology Microbiology Results: Microbiology 09/02/23 12:36 Gram Stain - Final Sputum - Expectorated Sputum Culture - Final Assessment and Plan (1) Diabetes: Status: Inactive Plan 78-year-old female with pertinent history of psb-hztmmth-onkqkcxop diabetes mellitus, essential hypertension, chronic hypoxemic respiratory failure due to copd with 1-2 L baseline oxygen as needed who presents to the emergency department for evaluation of dyspnea. Acute on chronic hypoxemic respiratory failure due to multifocal pneumonia -treat underlying Pneumonia with abx -oxygen with gaol of O2 88 to 92 COPD with probably exacerbation -continue inhalers solumedrol 20 bid Multifocal PNA with, with initial concern of asspiration but no sings of aspiration on swallowig test, clinically responding to IV -continue Azithromycin + Ceftriaxone for CAP -cultures thus far negative, -speech swallow eval d/t cocern for aspiration--safe for regular food -transition to po Abx Uil-wkmfovl-drbisadge diabetes mellitus with hyperglycemia -continue sliding scale + Lantus, resume metformin, check glucose per protocol, A1C =11, i have proposed that she use insulin at home Hypertension: BP within normal. Not on meds Severe Protein calorie malnutrition: ensure need for hospitalazation; pneumonia, copd exacerbation neding iv abx, iv steroid and use of of oxygen Quality Stroke Does the patient have a stroke diagnosis?: No VTE Prior VTE?: No VTE Risk Level:: Medical - moderate - high VTE Device Contraindication: Treatment Not Indicated VTE Drug Contraindication: N/A - Med Ordered
[2023-09-04 15:11] VITALS: BP 126/75; PULSE 98; RESP 16; TEMP 37.1; O2SAT 99
[2023-09-04 16:48] LABS: Glucose, Whole Blood 298 mg/dL (60-115)
[2023-09-04 19:27] VITALS: BP 128/80; PULSE 95; RESP 17; TEMP 36.7; O2SAT 98
[2023-09-04 19:52] VITALS: PULSE 95; RESP 16; O2SAT 98
[2023-09-04 19:59] LABS: Glucose, Whole Blood 294 mg/dL (60-115)
[2023-09-04] MEDS: Insulin Glargine,Hum.rec.anlog 100 UNIT/ML 10 ML VIAL 10 UNIT SUBCUT (21:22)
[2023-09-04] MEDS: cefTRIAXone sodium 1 GM in 0.9 % Sodium Chloride 50 ML IV (21:45)
[2023-09-04] MEDS: Azithromycin 500 MG in 0.9 % Sodium Chloride 250 ML 125 MG IV (21:46)
[2023-09-05 03:39] VITALS: BP 138/75; PULSE 92; RESP 17; TEMP 36.8; O2SAT 97
[2023-09-05] MEDS: Enoxaparin Sodium 40 MG/0.4 ML SYRINGE SUBCUT (06:09)
[2023-09-05 07:15] VITALS: BP 152/77; PULSE 85; RESP 16; TEMP 36.4; O2SAT 100
[2023-09-05 07:41] VITALS: PULSE 85; RESP 16; O2SAT 96
[2023-09-05] MEDS: Albuterol Sulfate (0.083%) 2.5 MG/3 ML VIAL.NEB INHALE ×2 (07:41→11:21)
[2023-09-05 08:10] LABS: Glucose, Whole Blood 46 mg/dL (60-115)
[2023-09-05] MEDS: Glucose Gel 15 GM GEL..GRAM. PO (08:21)
[2023-09-05 08:22] LABS: Glucose, Whole Blood 47 mg/dL (60-115)
[2023-09-05] MEDS: 0.9 % Sodium Chloride Flush 3 ML SYRINGE IVFLUSH (08:23)
[2023-09-05] MEDS: Multivitamin TABLET 1 TAB PO (08:32)
[2023-09-05] MEDS: methylPREDNISolone Sod Succ 40 MG/ML VIAL 10 MG IVPUSH (08:32)
[2023-09-05] MEDS: Cholecalciferol (Vitamin D3) 10 MCG TABLET PO (08:32)
[2023-09-05] MEDS: Ascorbic Acid 500 MG TABLET PO (08:32)
[2023-09-05 09:03] LABS: Glucose, Whole Blood 99 mg/dL (60-115)
[2023-09-05 11:02] LABS: Glucose, Whole Blood 167 mg/dL (60-115)
[2023-09-05 11:21] VITALS: PULSE 80; RESP 16; O2SAT 94
[2023-09-05] MEDS: Insulin Lispro 100 UNIT/ML 3 ML VIAL SUBCUT (11:27)
[2023-09-05 13:59] LABS: Glucose, Whole Blood 290 mg/dL (60-115)
[2023-09-05 15:27] VITALS: BP 119/60; PULSE 90; RESP 18; TEMP 36.7; O2SAT 91
--- NOTE | 2023-09-06 10:15 | P.F2F_ITS ---
Service Date Service Date: 09/06/23 Encounter Date of encounter: 09/05/23 Reasons for Services Signs and symptoms assessed: shortness of breath Reason for care home: diabetic teaching, medication management and teach disease management Homebound: Leaving the home is medically contraindicated at this time without the asist of a device and/or another person due th the listed conditions above and below. Reason homebound: shortness of breath with minimal effort and weakness related to hospital stay Homebound supporting statement: homebound due to shortness of with minimal effort, weakness due to recent hospitalization and therefore needs the assistance of another person Certification: Based on the above findings, I certify that this patient is confined to the home and needs intermittent care home care, physical therapy and/or speech therapy, or continues to need occupational therapy. The patient is under my care, and I have initiated the establishment of the plan of care. The patient will be followed by a physician who will periodically review the plan of care. Time Spent With Patient Time: Total time managing care of this patient today ____ minutes.
--- NOTE | 2023-10-03 13:20 | PM.DS ---
DS: Providers Provider Date of Service: 09/05/23 Date of admission: 09/01/23 02:25 Primary care physician: Gigi Osorio MD DS: Diagnosis Discharge Diagnosis (1) Diabetes: Status: Inactive DS: Summary Hospital Course Hospital Course: Admission hpi Chief Complaint: Dyspnea This is a 78-year-old female with pertinent history of mjn-stwmejj-uzqqkwkka diabetes mellitus, essential hypertension, chronic hypoxemic respiratory failure due to pneumonia with 1-2 L baseline oxygen as needed who presents to the emergency department for evaluation of dyspnea. Patient is a poor historian. Patient states she has home oxygen which she was given while she was in the hospital a year ago. Patient states she only uses oxygen as needed. Patient was feeling short of breath for the last few days. She checked her home O2 sat with pulse ox and it was found to be low. She tried to use her oxygen but her O2 sat was not coming up. Also endorses productive cough that has been ongoing for the last few days. No history of asthma or COPD. No history of smoking tobacco. No coughing episodes or choking episodes with food or water. No fever, chills, chest discomfort, palpitations, abdominal pain, changes in urinary or bowel habits. In the emergency department, patient was found be hypoxemic and requiring 5 L supplemental oxygen. Imaging with multifocal pneumonia. hospital course: 78-year-old female with pertinent history of xdu-rjmqqmy-gugjmgiba diabetes mellitus, essential hypertension, chronic hypoxemic respiratory failure due to copd with 1-2 L baseline oxygen as needed who presents to the emergency department for evaluation of dyspnea. Acute on chronic hypoxemic respiratory failure due to multifocal pneumonia, complicated by copd exacerbation. Her treatement conisted of IV Abx for pneumonia, oxygen to maintain O2 of 88 to 92, Steroid and bronchodilators for exacerbation of copd. She made gradual improvement and is being transition to oral antibiotics to complete treatment for pneumonia. As for copd exacerbation, this has resolved with treatment with IV steroid, bronchodilators by Neb and Oxygen. She instructed to avoid smoking. Cvg-fpkrcob-jjqshdhap diabetes mellitus with hyperglycemia due to steroid but in general her blood sugars are not well controlled and she's not compliant, in addtion to metformin, insulin is being added to her regimena and she's agreable to to this. Hypertension: BP within normal, not on med Severe Protein calorie malnutrition Final diagnoses: Acute hypoxic respiratory failure Multifocal pneumonia acute exacerbation of copd diabetes with hyperglycemia Severe protein calory manutrtition Time Attestation Discharge Coordination Time (in mins): 35 Quality: Safe Use of Opioids Does Pt have an Active Cancer Diagnosis on the Problem List?: No Quality: Stroke Does the patient have a stroke diagnosis?: No Physical Exam Vital Signs: Vital Signs: Last Vital Signs Temp 98.1 F 09/05/23 15:27 Pulse 90 09/05/23 15:27 Resp 18 09/05/23 15:27 BP 119/60 09/05/23 15:27 Pulse Ox 91 L 09/05/23 15:27 O2 Del Method Nasal Cannula 09/05/23 15:27 O2 Flow Rate 2 09/05/23 15:27 Oxygen Flow Rate 2 09/01/23 07:11 BMI result Body Mass Index 13.8 Discharge Plan Discharge Anticipated Discharge Date/Time: 09/05/23 13:52 Patient Disposition: Home Health Service Discharge Diagnosis: pneumonia, copd, diabetes Referrals: hvns [Other] - 1 Week Gigi Osorio MD [Primary Care Provider] - 1 Week Discharge Medications: New metformin 850 mg tablet 850 mg PO BID Qty: 60 0RF Continued cholecalciferol (vitamin D3) [Vitamin D3] 10 mcg (400 unit) Tablet 10 mcg PO DAILY Women's 50 Plus Multivitamin 400 mcg-500 mg calcium-20 mcg tablet 1 tab PO DAILY magnesium citrate 125 mg capsule 125 mg PO BEDTIME lutein 20 mg capsule 20 mg PO DAILY Rx Instructions: give with meal/snack ascorbic acid (vitamin C) 500 mg capsule 500 mg PO DAILY (DME) OneTouch Ultra Blue Test Strip Strip See Rx Instructions .ROUTE .MEDSUPPLY Qty: 100 5RF Rx Instructions: Check fasting blood sugar daily at varied time (DME) blood-glucose meter Kit See Rx Instructions .ROUTE .MEDSUPPLY Qty: 1 0RF Rx Instructions: As directed- poc daily at varied time (DME) lancets [OneTouch Delica Lancets] 33 gauge misc See Rx Instructions .ROUTE .MEDSUPPLY Qty: 100 4RF Rx Instructions: Check blood sugar daily at varied time Discontinued metformin 500 mg tablet 500 mg PO BID No Action metoprolol succinate 25 mg tablet extended release 24 hr 12.5 mg PO DAILY Qty: 30 0RF diltiazem HCl 30 mg tablet 30 mg PO BID Discharge Orders: Discharge Order (Routine); Ordered 09/05/23 Ordered By: Devin Juárez Diet: Diabetic diet Activity on Discharge: As tolerated Stand Alone Forms: Patient Portal Discharge page Print Language: Italian Care Plan Goals: Recovery from pneumonia Health Concerns: see above Plan of Treatment: Take Cefuroxime as recommend to complete treatment for pneumonia and follow up with your Doctor Metformin dose has been increased to 850 twice daily from 500 twice daily. In addition take insulin per sliding scale depending on your sugar level Please check your sugars before meals and at bedtime and adhere to diabetic diet Call your printing machine operator for follo up Make an appointment to go see your Doctor in a week, call for an appointment Assessment: see above Patient Instructions: Insulin Lispro Protamine/Insulin Lispro (By injection), Insulin Glargine (By injection), Basic Carbohydrate Counting (GEN), Meal Planning with the Plate Method (DC), Pneumonia (GEN), Type 2 Diabetes in the Older Adult (GEN) Discharge Date/Time: 09/05/23 16:57
== END 2023-09-05 16:57 | disposition home health service (06) | DRG 193 ==
LOC: HO.ED 09-01 01:45 → HO.EDOVER 09-01 02:29 → HO.S3 09-01 13:32
PROVIDERS: Admitting Provider Student in an Organized Health Care Education/Training Program; Emergency Provider Emergency Medicine; PCP Internal Medicine; Visit Provider Internal Medicine
DX: J18.9 Pneumonia, unspecified organism (principal); E43 Unspecified severe protein-calorie malnutrition; J96.21 Acute and chronic respiratory failure with hypoxia; Z68.1 Body mass index [BMI] 19.9 or less, adult; J43.9 Emphysema, unspecified; E88.A Wasting disease (syndrome) due to underlying condition; Z91.148 Patient's other noncompliance with medication regimen for other reason; I10 Essential (primary) hypertension; Z20.822 Contact with and (suspected) exposure to COVID-19; Z99.81 Dependence on supplemental oxygen; Z79.82 Long term (current) use of aspirin; Z79.4 Long term (current) use of insulin; Z79.84 Long term (current) use of oral hypoglycemic drugs; Z79.899 Other long term (current) drug therapy
CPT/HCPCS: 0241U; 36415; 71045; 71046; 71275; 80048; 80076; 82803; 82947; 83036; 83605; 83735; 83880; 84484; 85025; 85027; 85610; 87040; 87070; 87205; 92526; 92610; 93005; 94640; 97116; 97161; 99285; J0456; J0696; J1650; J2920; Q9967

== ENCOUNTER → 2023-08-31 23:23 | Outpatient (BNV) | payer MEDICARE, SELFPAY | PROVIDERS: Admitting Provider Student in an Organized Health Care Education/Training Program; Emergency Provider Emergency Medicine; PCP Internal Medicine; Visit Provider Internal Medicine Cardiovascular Disease | DX: R53.1 Weakness (principal) | CPT/HCPCS: 93010 ==

== ENCOUNTER → 2023-09-01 02:25 | Outpatient (BNV) | payer MEDICARE, SELFPAY | PROVIDERS: Admitting Provider Student in an Organized Health Care Education/Training Program; Emergency Provider Emergency Medicine; Visit Provider Student in an Organized Health Care Education/Training Program | DX: E11.9 Type 2 diabetes mellitus without complications (principal) | CPT/HCPCS: 99222; 99232; 99239; 99499; G0180 ==

== ENCOUNTER 2023-09-07 17:16 | Observation (INO) | payer MEDICARE, SELFPAY ==
--- NOTE | ~2023-09-07 | XR_ITS ---
EXAMINATION: XR CHEST CLINICAL INFORMATION: Cough. COMPARISON: 09/03/2023. Correlation made with CT performed 09/01/2023. TECHNIQUE: Frontal view of the chest was obtained. FINDINGS: The cardiomediastinal silhouette is stable. There is emphysematous change with diffuse increased markings and patchy faint multilobar lung opacities. There is blunting costophrenic angles with patchy opacities at both lung bases. The bony structures are osteopenic. The soft tissues are unremarkable. XR/XR chest 1V IMPRESSION: Emphysematous change with diffuse increased markings and patchy multilobar lung opacities. Similar findings were seen previously and on prior CT. Blunted costophrenic angles with bibasilar airspace disease possibly atelectasis or infiltrate.
--- NOTE | 2023-09-07 17:31 | ECG_ITS ---
Test Reason : SOB Blood Pressure : / mmHG Vent. Rate : 094 BPM Atrial Rate : 094 BPM P-R Int : 134 ms QRS Dur : 072 ms QT Int : 364 ms P-R-T Axes : 075 062 071 degrees QTc Int : 455 ms Normal sinus rhythm Possible Left atrial enlargement Borderline ECG When compared with ECG of 31-AUG-2023 23:27, No significant change was found Referred By: Nora Marcelino Electronically Signed By:SANJAY HARVEY MD
--- NOTE | 2023-09-07 17:32 | ED.GENADULT ---
HPI - General Adult General Chief complaint: Dyspnea Stated complaint: SOB, hypoxia, 77 RA, 96% on 4L Time Seen by Provider: 09/07/23 17:18 Source: patient and EMS Mode of arrival: EMS Limitations: no limitations History of Present Illness HPI narrative: patient comes to the emergency room complaining of low oxygen. Patient was recently discharged, 2 days ago from this hospital for multifocal pneumonia. Patient was discharged home with a home oxygen concentrator. Patient states that she has not been using it. seems that patient is not sure how to use it. Patient believes that she is supposed to have an oxygen tank which she does not Have 1 at home, since she has a concentrated your. Patient started coughing, started wheezing. EMS gave the patient 1 DuoNeb. Patient states that when she is at rest, she feels well. But when she walks, her oxygen drops. According to EMS, patient has a working concentrator and also enough tubing. Related Data Home Medications ?Medication ?Instructions ?Recorded ?Confirmed ascorbic acid (vitamin C) 500 mg 500 mg PO DAILY 05/26/20 09/07/23 capsule lutein 20 mg capsule 20 mg PO DAILY 05/26/20 09/07/23 magnesium citrate 125 mg capsule 125 mg PO BEDTIME 05/26/20 09/07/23 [id number] ac 400 1 tab PO DAILY 05/26/20 09/07/23 mcg-calcium carb 500 mg-vit K1 20 mcg tablet (Women's 50 Plus Multivitamin) cholecalciferol (vitamin D3) 10 10 mcg PO DAILY 07/11/22 09/07/23 mcg (400 unit) tablet (Vitamin D3) aspirin 81 mg chewable tablet 81 mg PO DAILY PRN Pain 09/01/23 09/07/23 Previous Rx's ?Medication ?Instructions ?Recorded blood sugar diagnostic (NDI MedicalTouch #100 ea 07/08/20 Ultra Blue Test Strip) blood-glucose meter #1 ea 07/08/20 lancets 33 gauge (OneTouch Delica #100 ea 07/08/20 Lancets) cefuroxime axetil 500 mg tablet 500 mg PO BID 3 days #6 tabs 09/05/23 insulin lispro 100 unit/mL 1 sliding scale dose subcut 09/05/23 subcutaneous half-unit pen USEASDIRECTD #15 mL metformin 850 mg tablet 850 mg PO BID #60 tabs 09/05/23 Allergies Allergy/AdvReac Type Severity Reaction Status Date / Time sulfa Allergy Unknown diarrhea Verified 09/07/23 17:35 midazolam [From Versed] AdvReac Severe bradycardia Verified 09/07/23 17:35 Review of Systems Review of Systems: Constitutional : No Weight loss, No Fever, No Chills, No Night Sweats, No Fatigue, No Malaise ENT/Mouth : No Hearing loss, No Ear Pain, No Nasal Congestion, No Sinus Pain, No Hoarseness, No sore throat, No Rhinorrhea, No Swallowing Difficulty Eyes: No Eye Pain, No Swelling, No Redness, No Foreign Body, No Discharge, No Vision Changes Cardiovascular : No Chest Pain, No SOB, No orthopnea, no edema or palpitations Respiratory : No Cough, No Sputum, complaining of wheezing and shortness of breath with exertion Gastrointestinal : No Nausea, No Vomiting, No Diarrhea, No Constipation, No abdominal Pain, No Hematochezia, No Melena Genitourinary : no irregular bleeding, No Dysuria, No Urinary Frequency, No Hematuria, No Urinary Incontinence, No Urgency, No Flank Pain, No Urinary Flow Changes, No Hesitancy Musculoskeletal : No joint pain, No Myalgias, No Joint Swelling Skin : No Skin Lesions, No rash Neuro : No Weakness, No Numbness, No Paresthesias, No Loss of Consciousness, No Dizziness, No Headache Psych : No Anxiety/Panic, No Depression, No SI/HI/AH/VH, No Social Issues, Heme/Lymph: No Bruising, No Bleeding,No Lymphadenopathy Endocrine : No Polyuria, No Polydipsia, No Temperature Intolerance PMFSH Past Medical History Medical History Sepsis Pneumonia Acute sinusitis Hypoxemia Pulmonary emphysema Pneumothorax Diabetes mellitus with microalbuminuria, without long-term current use of insulin Vaccination refused by patient Underweight Intermittent palpitations Diabetes mellitus with hyperglycemia, without long-term current use of insulin Hx of fracture of wrist H/O fracture of wrist Surgical History H/O wrist surgery History of femoral hernia repair Family History Family History Father Diabetes mellitus Mother Essential hypertension Sister Breast cancer Social History Social History Household Members: Spouse Housing: House Do you presently have visiting nurse or other home services: No Alcohol intake: never Comment: bed alarm is not working. put chair alarm on her Patient Tobacco Use Status: Never used Tobacco e-Cigarette/Vaping Use: Never Used Advance Directives: Yes Advance Directives on File: Yes Advance Directives Date on File: 06/16/22 service: No Current occupational status: retired Cognitive needs: No Hearing needs: No Vision needs: No Physical Exam ED Vital Signs: Vital Signs - 24 hr 09/07/23 17:34 09/07/23 18:59 09/07/23 22:30 Temperature 98.0 F 97.9 F Pulse Rate 98 94 88 Respiratory Rate 32 H 24 H 16 Blood Pressure 107/63 118/67 142/66 H Pulse Oximetry 86 L 96 96 Oxygen Delivery Method Room Air Nasal Cannula Nasal Cannula Oxygen Flow Rate 2 2 BMI result Body Mass Index 15.8 Const Other: Appearance: Alert. Oriented X3. No acute distress. Eyes: Pupils equal, round and reactive to light. ENT: Pharynx normal. Neck: Normal inspection. Neck supple. No lymph nodes noted. No crepitus CVS: Normal heart rate and rhythm. Pulses normal. Normal S1 and S2 Respiratory: No respiratory distress. Breath sounds normal. no wheezing, bilateral rales, no crackles Abdomen: Soft and nontender. No rigidity. No distention. Skin: Skin warm and dry. Normal skin color. Normal skin turgor. Extremities: No lower extremity edema. No Lacerations. No Rash Neuro: Oriented X 3. No motor deficit. No sensory deficit. Moving all extremities. No slurred speech. CN 2 through 12 grossly intact Psych: calm, cooperative, normal affect Course Course Course Narrative: - seems that patient is having trouble learning how to use her concentrated. We ask Respiratory therapy to talk to her while she is here in the emergency room to explain to her that she does not need a physical tank of oxygen at home since she has the concentrated. Medications Administered Discontinued Medications Generic Name Dose Route Start Last Admin Trade Name Freq PRN Reason Stop Dose Admin Sodium Chloride 1,000 mls @ 999 mls/hr 09/07/23 20:39 09/07/23 22:49 Ns IVCONT 09/07/23 21:39 Infused .Q1H1M ONE Infusion Insulin Human Regular 10 unit 09/07/23 20:39 09/07/23 21:04 Insulin Regular, Human 100 Unit/Ml 3 Ml Vial IVPUSH 09/07/23 20:40 10 unit ONCE ONE Administration Methylprednisolone Sodium Succinate 125 mg 09/07/23 17:32 09/07/23 17:58 Methylprednisolone Sod Succ 125 Mg/2 Ml Vial IVPUSH 09/07/23 17:33 125 mg ONCE ONE Administration Medical Decision Making Medical Decision Making MDM Narrative: -my interpretation of labs: Hematology at baseline, patient's chemistry shows the patient is a bit dehydrated, patient given IV fluids, glucose 395, also received IV insulin. Troponin negative, BNP 126 at baseline. -my interpretation of EKG: Normal sinus rhythm, heart rate 94, no ST segment depression or elevation, no T-wave inversion, QTC 455 -patient is doing very well on oxygen 2 L. the problem at home is that the patient would benefit from using oxygen 26/12. However, patient states that she was informed per Helen mcfadden, the she currently only has orders for p.r.n. oxygen and they can not changes setting. They need a doctor's note or a respiratory therapist notes from her last admission here, both which could not be found on the patient's chart. -after talking with the patient, carries management and respiratory therapist, the best course of action would be to have a full respiratory therapist evaluation. However, they can not do this from an outpatient basis, patient will have to be admitted. -I discussed the above-mentioned situation with our hospitalist Dr. Samson, patient being admitted under observation Lab Data 09/07/23 17:49 09/07/23 17:49 Labs: Lab Results 09/07/23 09/07/23 09/07/23 Range/Units 17:49 17:50 17:55 WBC 8.7 (4.8-10.8) X10*3/uL RBC 3.93 L (4.20-5.50) X10*6/uL Hgb 11.6 L (12.0-16.0) g/dl Hct 36.4 L (37.0-47.0) % MCV 92.6 (80.0-98.0) fL MCH 29.5 (27.0-33.0) pg MCHC 31.9 (31.0-35.0) g/dl RDW 15.2 (11.0-16.0) % Plt Count 258 (160-400) X10*3/uL MPV 9.3 L (9.4-12.3) fL Immature Gran % (Auto) 0.7 H (0.0-0.4) % Neut % (Auto) 80.6 H (45-73) % Lymph % (Auto) 9.4 L (20-40) % Hutchinson % (Auto) 5.9 (2-11) % Eos % (Auto) 3.1 (0-4) % Baso % (Auto) 0.3 (0-2) % Lymph # (Auto) 0.8 L (1.2-4.9) X10*3/uL Hutchinson # (Auto) 0.5 (0.1-1.2) X10*3/uL Eos # (Auto) 0.3 (0.0-0.4) X10*3/uL Baso # (Auto) 0.0 (0.0-0.2) X10*3/uL Abs Immat Gran (auto) 0.06 H (0.00-0.03) X10*3/uL Absolute Neuts (auto) 7.0 (2.0-8.3) x10*3/uL Absolute Nucleated RBC 0.000 (0.0-0.012) X10*3/uL Nucleated RBC % (auto) 0.0 (0.0-0.2) /100WBC PT 11.5 (11.1-13.3) SEC INR 0.9 (0.9-1.1) VBG pH 7.49 H (7.32-7.43) VBG pCO2 57 mmHg VBG pO2 101 mmHg VBG HCO3 45 H (22-26) mmol/L VBG O2 Saturation 99.0 % VBG Base Excess 18.7 mmol/L Sodium 137 (135-145) mmol/L Potassium 4.3 D (3.3-5.1) mmol/L Chloride 92 L (96-108) mmol/L Carbon Dioxide 39 H (22-29) mmol/L Anion Gap 10 L (12-20) BUN 29 H (9-16) mg/dL Creatinine 0.73 (0.5-1.4) mg/dL Estim Creat Clear Calc 41.9 Estimated GFR > 60 POC Glucose (60-115) mg/dL Random Glucose 395 H* (60-115) mg/dL Calcium 9.4 (8.4-10.2) mg/dL Total Bilirubin 0.2 (0.0-1.0) mg/dL Direct Bilirubin < 0.2 (0.0-0.5) mg/dL AST 14 (5-31) U/L ALT 16 (0-31) U/L Alkaline Phosphatase 70 (39-117) U/L Troponin I High Sens < 2.7 (<3.5-17.0) ng/L B-Natriuretic Peptide 126 H (<100) pg/mL Total Protein 6.0 L (6.5-8.0) g/dL Albumin 2.8 L (3.5-5.0) g/dL Influenza Type A (PCR) NEGATIVE (Negative) Influenza Type B (PCR) NEGATIVE (Negative) RSV RNA Qual (PCR) NEGATIVE (Negative) SARS-CoV-2 RNA (RT-PCR) NEGATIVE (Negative) 09/07/23 09/07/23 09/07/23 Range/Units 17:57 19:58 22:00 WBC (4.8-10.8) X10*3/uL RBC (4.20-5.50) X10*6/uL Hgb (12.0-16.0) g/dl Hct (37.0-47.0) % MCV (80.0-98.0) fL MCH (27.0-33.0) pg MCHC (31.0-35.0) g/dl RDW (11.0-16.0) % Plt Count (160-400) X10*3/uL MPV (9.4-12.3) fL Immature Gran % (Auto) (0.0-0.4) % Neut % (Auto) (45-73) % Lymph % (Auto) (20-40) % Hutchinson % (Auto) (2-11) % Eos % (Auto) (0-4) % Baso % (Auto) (0-2) % Lymph # (Auto) (1.2-4.9) X10*3/uL Hutchinson # (Auto) (0.1-1.2) X10*3/uL Eos # (Auto) (0.0-0.4) X10*3/uL Baso # (Auto) (0.0-0.2) X10*3/uL Abs Immat Gran (auto) (0.00-0.03) X10*3/uL Absolute Neuts (auto) (2.0-8.3) x10*3/uL Absolute Nucleated RBC (0.0-0.012) X10*3/uL Nucleated RBC % (auto) (0.0-0.2) /100WBC PT (11.1-13.3) SEC INR (0.9-1.1) VBG pH (7.32-7.43) VBG pCO2 mmHg VBG pO2 mmHg VBG HCO3 (22-26) mmol/L VBG O2 Saturation % VBG Base Excess mmol/L Sodium (135-145) mmol/L Potassium (3.3-5.1) mmol/L Chloride (96-108) mmol/L Carbon Dioxide (22-29) mmol/L Anion Gap (12-20) BUN (9-16) mg/dL Creatinine (0.5-1.4) mg/dL Estim Creat Clear Calc Estimated GFR POC Glucose 348 H 368 H* 329 H (60-115) mg/dL Random Glucose (60-115) mg/dL Calcium (8.4-10.2) mg/dL Total Bilirubin (0.0-1.0) mg/dL Direct Bilirubin (0.0-0.5) mg/dL AST (5-31) U/L ALT (0-31) U/L Alkaline Phosphatase (39-117) U/L Troponin I High Sens (<3.5-17.0) ng/L B-Natriuretic Peptide (<100) pg/mL Total Protein (6.5-8.0) g/dL Albumin (3.5-5.0) g/dL Influenza Type A (PCR) (Negative) Influenza Type B (PCR) (Negative) RSV RNA Qual (PCR) (Negative) SARS-CoV-2 RNA (RT-PCR) (Negative) Discharge Plan Discharge Clinical Impression: Hypoxemia Patient Disposition: Admitted as Observation Prescriptions: No Action cholecalciferol (vitamin D3) [Vitamin D3] 10 mcg (400 unit) Tablet 10 mcg PO DAILY aspirin 81 mg Tablet,Chewable 81 mg PO DAILY PRN (Reason: Pain) cefuroxime axetil 500 mg tablet 500 mg PO BID 3 Days Qty: 6 0RF metformin 850 mg tablet 850 mg PO BID Qty: 60 0RF insulin lispro 100 unit/mL insulin pen, half-unit 1 sliding scale dose subcut USEASDIRECTD Qty: 15 0RF Rx Instructions: BG <111 0 units, 111-150 - 0 units, 151-200 2 units, 201-250 4 units, 251-300 6 units, 301-350 8 units, >350 10 units Women's 50 Plus Multivitamin 400 mcg-500 mg calcium-20 mcg tablet 1 tab PO DAILY magnesium citrate 125 mg capsule 125 mg PO BEDTIME lutein 20 mg capsule 20 mg PO DAILY Rx Instructions: give with meal/snack ascorbic acid (vitamin C) 500 mg capsule 500 mg PO DAILY (DME) OneTouch Ultra Blue Test Strip Strip See Rx Instructions .ROUTE .MEDSUPPLY Qty: 100 5RF Rx Instructions: Check fasting blood sugar daily at varied time (DME) blood-glucose meter Kit See Rx Instructions .ROUTE .MEDSUPPLY Qty: 1 0RF Rx Instructions: As directed- poc daily at varied time (DME) lancets [OneTouch Delica Lancets] 33 gauge misc See Rx Instructions .ROUTE .MEDSUPPLY Qty: 100 4RF Rx Instructions: Check blood sugar daily at varied time Print Language: Spanish
[2023-09-07 17:34] VITALS: BP 107/63; PULSE 98; RESP 32; TEMP 36.7; O2SAT 86; BMI 15.8
[2023-09-07 17:38] VITALS: O2SAT 77
--- NOTE | 2023-09-07 17:38 | PC.NURSE ---
Addendum entered by Nikki Robins 09/07/23 17:38: placed on 2L nasal cannula now 93% Original Note: found to be 86% on room air during triage, -oa
--- NOTE | 2023-09-07 17:54 | PHA.MEDREC ---
Pharmacy Consult ? Medication Reconciliation Pharmacy has completed the medication reconciliation. Patient just discharge 09/04 from [facility] [place], utilized discharge summary for med rec. Fiorella Colon, KvngD
[2023-09-07 17:58] LABS: MANUAL DIFF FLAG NO
[2023-09-07] MEDS: methylPREDNISolone Sod Succ 125 MG/2 ML VIAL IVPUSH (17:58)
[2023-09-07 18:03] LABS: Venous Blood Gas Refer to POC result
[2023-09-07 18:03] LABS: VBG Base Excess 18.7 mmol/L; VBG HCO3 45 mmol/L (22-26); VBG pCO2 57 mmHg; VBG pH 7.49 (7.32-7.43); VBG pO2 101 mmHg
[2023-09-07 18:06] LABS: INTERNATIONAL NORM RATIO 0.9 (0.9-1.1); Prothrombin Time 11.5 SEC (11.1-13.3)
[2023-09-07 18:11] LABS: Basophils Percent Auto 0.3 % (0-2); Eosinophils Absolute Auto 0.3 X10*3/uL (0.0-0.4); Eosinophils Percent Auto 3.1 % (0-4); Hematocrit 36.4 % (37.0-47.0); Hemoglobin 11.6 g/dl (12.0-16.0); Imm Gran Abs Auto 0.06 X10*3/uL (0.00-0.03); Imm Gran Pct Auto 0.7 % (0.0-0.4); Lymphocytes Absolute Auto 0.8 X10*3/uL (1.2-4.9); Lymphocytes Percent Auto 9.4 % (20-40); Mean Corpuscular HGB Conc 31.9 g/dl (31.0-35.0); Mean Corpuscular Hemoglobin 29.5 pg (27.0-33.0); Mean Corpuscular Volume 92.6 fL (80.0-98.0); Mean Platelet Volume 9.3 fL (9.4-12.3); Monocytes Absolute Auto 0.5 X10*3/uL (0.1-1.2); Monocytes Percent Auto 5.9 % (2-11); Neutrophils Percent Auto 80.6 % (45-73); Platelet Count 258 X10*3/uL (160-400); Red Blood Count 3.93 X10*6/uL (4.20-5.50); Red Cell Distribution Width 15.2 % (11.0-16.0); White Blood Count 8.7 X10*3/uL (4.8-10.8)
[2023-09-07 18:29] LABS: Glucose, Whole Blood 348 mg/dL (60-115)
[2023-09-07 18:30] LABS: B Type Natriuretic Peptide 126 pg/mL (<100)
[2023-09-07 18:32] LABS: Alanine Aminotransferase 16 U/L (0-31); Albumin Level 2.8 g/dL (3.5-5.0); Alkaline Phosphatase 70 U/L (39-117); Anion Gap 10 (12-20); Aspartate Amino Transferase 14 U/L (5-31); Bilirubin Direct < 0.2 mg/dL (0.0-0.5); Bilirubin Total 0.2 mg/dL (0.0-1.0); Blood Urea Nitrogen 29 mg/dL (9-16); Calcium 9.4 mg/dL (8.4-10.2); Carbon Dioxide 39 mmol/L (22-29); Chloride 92 mmol/L (96-108); Creatinine Clr Calc Pharmacy 41.9; Estimated Glomerular Filt Rate > 60; Glucose Random 395 mg/dL (60-115); Potassium 4.3 mmol/L (3.3-5.1); Sodium 137 mmol/L (135-145)
[2023-09-07 18:33] LABS: Troponin-I High Sensitivity < 2.7 ng/L (<3.5-17.0)
[2023-09-07 18:51] LABS: Influenza A PCR NEGATIVE (Negative); Influenza B PCR NEGATIVE (Negative); Resp Syncy Virus RNA Qual PCR NEGATIVE (Negative); SARS COV2 PCR INHOUSE NEGATIVE (Negative)
[2023-09-07 18:59] VITALS: BP 118/67; PULSE 94; RESP 24; O2SAT 96
--- NOTE | 2023-09-07 19:17 | MHC.CM.ED ---
Pt d[place]c [place] [facility] [place]04 with [facility]. Has home Oxygen used at hs. O2sats decreased at home. [facility] felt patient needed to be seen in ED.
[2023-09-07 20:02] LABS: Glucose, Whole Blood 368 mg/dL (60-115)
[2023-09-07] MEDS: 0.9 % Sodium Chloride 1,000 ML 999 ML IVCONT (21:04)
[2023-09-07] MEDS: Insulin Regular, Human 100 UNIT/ML 3 ML VIAL 10 UNIT IVPUSH (21:04)
[2023-09-07 22:03] LABS: Glucose, Whole Blood 329 mg/dL (60-115)
[2023-09-07 22:30] VITALS: BP 142/66; PULSE 88; RESP 16; TEMP 36.6; O2SAT 96
--- NOTE | 2023-09-07 23:20 | MHC.CM.ED ---
Dr. Marcelino requested CM to speak with patient regarding her home oxygen. Pt tells CM that she has had home oxygen with a concentrator from [facility] for the past 2 years. She was only using it prn. She sees Dr. Garcia. When patient was discharged home on 09/04 on 09/04, she was told she needed oxygen /. No discharge summary on record and no resp notes found. Pt states she called [facility] and they told her she needs a respiratory test for her oxygen. She has no emergency tank or small portable tanks to take when she leaves home. Pt did not have respiratory testing done prior to discharge according to medical record. Pt thought she could not use concentrator near her stove, so she was taking it off. CM explained that oxygen is reclaimed and concentrated from the ambient air and she can wear it near the stove. Pt did de-sat without her oxygen on. Dr. Marcelino aware. CM did speak with respiratory. Pt will be admitted and have respiratory assessment for continuous oxygen at home. Respiratory will then order appropriate supplies from [facility]. [facility] requested to follow patient for discharge via [facility].
[2023-09-08] VITALS: BP 107/58; PULSE 85; RESP 20; O2SAT 99
[2023-09-08 00:17] LABS: Glucose, Whole Blood 367 mg/dL (60-115)
[2023-09-08] MEDS: cefuroxime axetiL 500 MG TABLET PO (01:13)
[2023-09-08] MEDS: 0.9 % Sodium Chloride 500 ML IV (01:16)
[2023-09-08] MEDS: Insulin Lispro 100 UNIT/ML 3 ML VIAL 8 UNIT SUBCUT (01:17)
--- NOTE | 2023-09-08 01:22 | PC.NURSE ---
Pt is nervous about sugars dropping quickly, requested that I space out insulin administrations. We will recheck sugars prior to next dose
[2023-09-08 01:54] LABS: Glucose, Whole Blood 343 mg/dL (60-115)
[2023-09-08] MEDS: Insulin Glargine,Hum.rec.anlog 100 UNIT/ML 10 ML VIAL 10 UNIT SUBCUT (01:57)
--- NOTE | 2023-09-08 02:38 | P.HPHOSP_ITS ---
History of Present Illness Date of Service: 09/08/23 Attending physician on admission: Eric Vega Chief Complaint: Issues with oxygen concentrator Anu Stephens is a 78 years old woman with past medical history significant for COPD -on home O2 a recent discharge from the hospital after being found to have hypoxic respiratory failure due to multifocal pneumonia presents to the emergency department stating that she was discharged home with a home oxygen concentrator but needs an oxygen tank as now she is requiring oxygen 24/ (she said that she used to use home O2 only as needed). She is currently denying shortness on breath or chest pain. Persists with some cough. She denied any headache, palpitation, dizziness, fevers chills. She also did not report any acute gastrointestinal or genitourinary symptoms. In the ED, she was found to have stable vital signs except low oxygen saturation on room air. She is currently requiring 2 L/min of supplemental oxygen. Her blood workup including CBC, CMP, BNP and troponin are basically unchanged if not better than prior; except for marked hyperglycemia. CXR findings are similar to prior. ECG showed no acute ischemia. ED tx: Solu-Medrol 125 mg IV, NS 1 L bolus, insulin R 10 mg IV. Review of Systems 2 Review of Systems: All 12 systems were reviewed and normal except as noted in HPI. [facility] Medical History Sepsis Pneumonia Acute sinusitis Hypoxemia Pulmonary emphysema Pneumothorax Diabetes mellitus with microalbuminuria, without long-term current use of insulin Vaccination refused by patient Underweight Intermittent palpitations Diabetes mellitus with hyperglycemia, without long-term current use of insulin Hx of fracture of wrist H/O fracture of wrist Family History Father Diabetes mellitus Mother Essential hypertension Sister Breast cancer Surgical History H/O wrist surgery History of femoral hernia repair Social History Household Members: Spouse Housing: House Do you presently have visiting nurse or other home services: No Alcohol intake: never Comment: bed alarm is not working. put chair alarm on her Patient Tobacco Use Status: Never used Tobacco e-Cigarette/Vaping Use: Never Used Advance Directives: Yes Advance Directives on File: Yes Advance Directives Date on File: 06/16/22 service: No Current occupational status: retired Cognitive needs: No Hearing needs: No Vision needs: No Meds Allergies Allergy/AdvReac Type Severity Reaction Status Date / Time sulfa Allergy Unknown diarrhea Verified 09/07/23 17:35 midazolam [From Versed] AdvReac Severe bradycardia Verified 09/07/23 17:35 Active Medications: Current Medications Acetaminophen (Acetaminophen 325 Mg Tablet) 650 mg PO Q6H PRN PRN Reason: Pain, Mild (Pain Scale 1-3) Cefuroxime Axetil (Cefuroxime Axetil 500 Mg Tablet) 500 mg PO BID [facility] Last Admin: 09/08/23 01:13 Dose: 500 mg Dextrose (Dextrose 50 % 25 Gm/50 Ml Syringe) 25 gm IVPUSH Q15M PRN; Protocol PRN Reason: per Hypoglycemia Standing Ord. Glucose (Glucose Gel 15 Gm Gel..Gram.) 15 gm PO Q15M PRN; Protocol PRN Reason: per Hypoglycemia Standing Ord. Insulin Glargine (Insulin Glargine,Hum.Rec.Anlog 100 Unit/Ml 10 Ml Vial) 10 unit SUBCUT BEDTIME [facility] Last Admin: 09/08/23 01:57 Dose: 10 unit Insulin Human Lispro (Insulin Lispro 100 Unit/Ml 3 Ml Vial) 0 unit SUBCUT QIDACHS [facility]; Protocol Metformin HCl (Metformin Hcl 850 Mg Tablet) 850 mg PO BID [facility] Non-Formulary Medication (Lutein) 20 mg PO DAILY [facility] Non-Formulary Medication (Magnesium Citrate) 125 mg PO BEDTIME [facility] Sodium Chloride (0.9 % Sodium Chloride Flush 3 Ml Syringe) 3 ml IVFLUSH QSHIFT [facility] Home Medications ?Medication ?Instructions ?Recorded ?Confirmed ?Last Taken ?Type ascorbic acid (vitamin C) 500 mg 500 mg PO DAILY 05/26/20 09/07/23 08/31/23 History capsule lutein 20 mg capsule 20 mg PO DAILY 05/26/20 09/07/23 08/31/23 History magnesium citrate 125 mg capsule 125 mg PO BEDTIME 05/26/20 09/07/23 Unknown History omxczrer-jnp-dckzx ac 400 1 tab PO DAILY 05/26/20 09/07/23 08/31/23 History mcg-calcium carb 500 mg-vit K1 20 mcg tablet (Women's 50 Plus Multivitamin) cholecalciferol (vitamin D3) 10 10 mcg PO DAILY 07/11/22 09/07/23 08/31/23 History mcg (400 unit) tablet (Vitamin D3) aspirin 81 mg chewable tablet 81 mg PO DAILY PRN Pain 09/01/23 09/07/23 Unknown History Physical Exam 2 Vital Signs and Narrative: Vital Signs: Last Vital Signs Temp 97.9 F 09/07/23 22:30 Pulse 85 09/08/23 00:00 Resp 20 09/08/23 00:00 BP 107/58 L 09/08/23 00:00 Pulse Ox 99 09/08/23 00:00 O2 Del Method Nasal Cannula 09/08/23 00:00 O2 Flow Rate 3 09/08/23 00:00 BMI result Body Mass Index 15.8 Constitutional - Awake and Alert, No apparent distress. NC in place. Cachectic. HEENT - atraumatic. Temporal wasting. Normal sclerae. Dry oral mucosa. Heart - S1S2, RRR. Lungs - Normal lung expansion, Normal respiratory effort, No respiratory distress, CTA bilaterally Abdomen - NT, mildly distended; +BS; No rebound or guarding Extremities - no calf tenderness bilaterally, no swelling Musculoskeletal - atrophic muscles Skin - Warm/Dry Neurological - Alert & oriented x3. No focal weakness. Normal speech. Psychological - Appropriate affect Results Labs 09/07/23 17:49 09/07/23 17:49 Labs: Laboratory Results - last 24 hr 09/07/23 09/07/23 09/07/23 17:49 17:50 17:55 MCV 92.6 MCH 29.5 MCHC 31.9 RDW 15.2 Plt Count 258 MPV 9.3 L Immature Gran % (Auto) 0.7 H Neut % (Auto) 80.6 H Lymph % (Auto) 9.4 L [place] % (Auto) 5.9 Eos % (Auto) 3.1 Baso % (Auto) 0.3 Lymph # (Auto) 0.8 L [place] # (Auto) 0.5 Eos # (Auto) 0.3 Baso # (Auto) 0.0 Abs Immat Gran (auto) 0.06 H Absolute Neuts (auto) 7.0 Absolute Nucleated RBC 0.000 Nucleated RBC % (auto) 0.0 PT 11.5 INR 0.9 VBG pH 7.49 H VBG pCO2 57 VBG pO2 101 VBG HCO3 45 H VBG O2 Saturation 99.0 VBG Base Excess 18.7 Anion Gap 10 L Estim Creat Clear Calc 41.9 Estimated GFR > 60 POC Glucose Random Glucose 395 H* Calcium 9.4 Total Bilirubin 0.2 Direct Bilirubin < 0.2 AST 14 ALT 16 Alkaline Phosphatase 70 Troponin I High Sens < 2.7 B-Natriuretic Peptide 126 H Total Protein 6.0 L Albumin 2.8 L Influenza Type A (PCR) NEGATIVE Influenza Type B (PCR) NEGATIVE RSV RNA Qual (PCR) NEGATIVE SARS-CoV-2 RNA (RT-PCR) NEGATIVE 09/07/23 09/07/23 09/07/23 17:57 19:58 22:00 MCV MCH MCHC RDW Plt Count MPV Immature Gran % (Auto) Neut % (Auto) Lymph % (Auto) [place] % (Auto) Eos % (Auto) Baso % (Auto) Lymph # (Auto) [place] # (Auto) Eos # (Auto) Baso # (Auto) Abs Immat Gran (auto) Absolute Neuts (auto) Absolute Nucleated RBC Nucleated RBC % (auto) PT INR VBG pH VBG pCO2 VBG pO2 VBG HCO3 VBG O2 Saturation VBG Base Excess Anion Gap Estim Creat Clear Calc Estimated GFR POC Glucose 348 H 368 H* 329 H Random Glucose Calcium Total Bilirubin Direct Bilirubin AST ALT Alkaline Phosphatase Troponin I High Sens B-Natriuretic Peptide Total Protein Albumin Influenza Type A (PCR) Influenza Type B (PCR) RSV RNA Qual (PCR) SARS-CoV-2 RNA (RT-PCR) 09/08/23 09/08/23 00:09 01:50 MCV MCH MCHC RDW Plt Count MPV Immature Gran % (Auto) Neut % (Auto) Lymph % (Auto) [place] % (Auto) Eos % (Auto) Baso % (Auto) Lymph # (Auto) [place] # (Auto) Eos # (Auto) Baso # (Auto) Abs Immat Gran (auto) Absolute Neuts (auto) Absolute Nucleated RBC Nucleated RBC % (auto) PT INR VBG pH VBG pCO2 VBG pO2 VBG HCO3 VBG O2 Saturation VBG Base Excess Anion Gap Estim Creat Clear Calc Estimated GFR POC Glucose 367 H* 343 H Random Glucose Calcium Total Bilirubin Direct Bilirubin AST ALT Alkaline Phosphatase Troponin I High Sens B-Natriuretic Peptide Total Protein Albumin Influenza Type A (PCR) Influenza Type B (PCR) RSV RNA Qual (PCR) SARS-CoV-2 RNA (RT-PCR) Imaging Radiologist's Impressions: Impressions Chest X-Ray 09/08/23 00:30 IMPRESSION: Emphysematous change with diffuse increased markings and patchy multilobar lung opacities. Similar findings were seen previously and on prior CT. Blunted costophrenic angles with bibasilar airspace disease possibly atelectasis or infiltrate. 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 insulin use: without adjunct faculty for medical terminology use Diabetes mellitus complication status: without complication Qualified Code(s): E11.9 - Type 2 diabetes mellitus without complications Status: Acute (3) Multifocal pneumonia: Status: Acute (4) Uncontrolled type 2 diabetes mellitus with hyperglycemia: Status: Acute (5) Malnutrition: Qualifiers: Malnutrition type: protein-calorie malnutrition Protein-calorie malnutrition severity: severe Qualified Code(s): E43 - Unspecified severe protein-calorie malnutrition Status: Acute Plan Anu Stephens is a 78 years old woman with past medical history significant for COPD -on home O2 a recent * Hypoxia, chronic secondary to COPD. Continue supplemental oxygen. RT consult to assess for home oxygen. Case management consult for home oxygen arrangements. * Multifocal pneumonia, clinically improving. Continue PO cefuroxime 500 mg PO BID. * Essential hypertension. Blood pressure is soft. Avoid anti hypertensive meds for now. Continue to monitor. * Uncontrolled diabetes, last A1c 11%. Continue Lantus, insulin sliding scale and metformin. Blood glucose monitoring before meals and bedtime. * Severe protein caloric malnutrition, BMI 15.8 kg/m2. Glucerna. Quality Stroke Does the patient have a stroke diagnosis?: No VTE Prior VTE?: No VTE Risk Level:: Medical - moderate - high VTE Device Contraindication: N/A - Device Ordered VTE Drug Contraindication: Treatment Not Indicated
[2023-09-08 03:01] LABS: Glucose, Whole Blood 301 mg/dL (60-115)
[2023-09-08] MEDS: Insulin Lispro 100 UNIT/ML 3 ML VIAL SUBCUT ×2 (03:42→12:26)
[2023-09-08 04:16] LABS: Glucose, Whole Blood 234 mg/dL (60-115)
[2023-09-08 05:23] LABS: Hemoglobin 10.8 g/dl (12.0-16.0); Imm Gran Abs Auto 0.02 X10*3/uL (0.00-0.03); Imm Gran Pct Auto 0.4 % (0.0-0.4); Lymphocytes Absolute Auto 0.3 X10*3/uL (1.2-4.9); Lymphocytes Percent Auto 4.7 % (20-40); MANUAL DIFF FLAG SCAN; Mean Corpuscular HGB Conc 31.8 g/dl (31.0-35.0); Mean Corpuscular Hemoglobin 29.3 pg (27.0-33.0); Mean Corpuscular Volume 92.1 fL (80.0-98.0); Mean Platelet Volume 8.9 fL (9.4-12.3); Monocytes Absolute Auto 0.2 X10*3/uL (0.1-1.2); Monocytes Percent Auto 3.2 % (2-11); Neutrophils Absolute Auto 4.9 x10*3/uL (2.0-8.3); Neutrophils Percent Auto 91.7 % (45-73); Platelet Count 218 X10*3/uL (160-400); Red Blood Count 3.69 X10*6/uL (4.20-5.50); Red Cell Distribution Width 15.2 % (11.0-16.0); SCAN SMEAR FLAG 1; White Blood Count 5.3 X10*3/uL (4.8-10.8)
[2023-09-08 05:43] LABS: Alanine Aminotransferase 14 U/L (0-31); Albumin Level 2.6 g/dL (3.5-5.0); Alkaline Phosphatase 62 U/L (39-117); Anion Gap 8 (12-20); Aspartate Amino Transferase 11 U/L (5-31); Bilirubin Total 0.2 mg/dL (0.0-1.0); Blood Urea Nitrogen 25 mg/dL (9-16); Calcium 9.1 mg/dL (8.4-10.2); Carbon Dioxide 36 mmol/L (22-29); Chloride 101 mmol/L (96-108); Creatinine Clr Calc Pharmacy 50.2; Estimated Glomerular Filt Rate > 60; Glucose Random 233 mg/dL (60-115); Potassium 4.1 mmol/L (3.3-5.1); Sodium 141 mmol/L (135-145); Total Protein 5.5 g/dL (6.5-8.0)
[2023-09-08 05:59] LABS: SLIDE REVIEW VERIFIED
[2023-09-08 06:59] VITALS: BP 107/63; PULSE 72; RESP 19; TEMP 36.5; O2SAT 94
[2023-09-08 07:25] LABS: Glucose, Whole Blood 143 mg/dL (60-115)
--- NOTE | 2023-09-08 07:25 | PC.RT ---
I went to see patient and do her Home Oxygen Evaluation. Pt refused to do it now as she wants breakfast susana. Her Sats are 99% on 3 liters I turned it down to 2 liters. Pt does have oxygen at home at 2 liters for night time. Pt said she does not know how to work the oxygen concentrator at home and she thinks that the oxygen tanks need to be filled. I educated her on this matter. I also will speak to Matthias today about re-educating the patient and the family on how to use the 0xygen concentraor and the tanks at home if needed. Once patient goes to [facility], I will do her Home Oxygen Evaluation.
[2023-09-08 08:00] VITALS: BP 103/57; PULSE 81; RESP 18; TEMP 36.4; O2SAT 91
[2023-09-08] MEDS: 0.9 % Sodium Chloride Flush 3 ML SYRINGE IVFLUSH (08:23)
--- NOTE | 2023-09-08 08:34 | PC.NURSE ---
Pt refusing AM Metformin. Pt educated last admission extensively about Diabetes and Resp status. Discharged last week, Questions pt compliance?
[2023-09-08 10:47] VITALS: PULSE 81; PULSE 94; PULSE 96; O2SAT 87; O2SAT 88; O2SAT 91
--- NOTE | 2023-09-08 11:13 | PM.DS ---
DS: Providers Provider Date of Service: 09/08/23 Date of admission: 09/08/23 01:13 Date of discharge: 09/08/23 Primary care physician: NAVID Arboleda Consults: 09/08/23 03:06 Consult to Case Management Routine Comment: Home O2 arrangements Attending physician on discharge: Vania Vasques Discharging clinician: Vania Vasques DS: Diagnosis Discharge Diagnosis (1) Hypoxemia: Status: Acute (2) Diabetes: Status: Acute (3) Multifocal pneumonia: Status: Acute (4) Uncontrolled type 2 diabetes mellitus with hyperglycemia: Status: Acute (5) Malnutrition: Status: Acute DS: Summary Hospital Course Hospital Course: 78 years old woman with past medical history significant for COPD -on home O2 a recent discharge from the hospital after being found to have hypoxic respiratory failure due to multifocal pneumonia presents to the emergency department stating that she was discharged home with a home oxygen concentrator but needs an oxygen tank as now she is requiring oxygen 24/7 (she said that she used to use home O2 only as needed). She is currently denying shortness on breath or chest pain. Persists with some cough. She denied any headache, palpitation, dizziness, fevers chills. She also did not report any acute gastrointestinal or genitourinary symptoms. In the ED, she was found to have stable vital signs except low oxygen saturation on room air. She is currently requiring 2 L/min of supplemental oxygen. Her blood workup including CBC, CMP, BNP and troponin are basically unchanged if not better than prior; except for marked hyperglycemia. CXR findings are similar to prior. ECG showed no acute ischemia. ED tx: Solu-Medrol 125 mg IV, NS 1 L bolus, insulin R 10 mg IV. Hospital course: Hypoxia, chronic secondary to COPD. Continue supplemental oxygen. RT consult to assess for home oxygen. consult for home oxygen arrangements-seen by repiratrory -home oxygen arrnaged -use oxygen 2 liter with ambulationa nd 1 liter at rest. dm with hyper glycemia :fs improving ,seems like received iv Solu-Medrol that might have caused more hypercalcemia which is improving now. Continue diabetic diet, diabetic education given, continue current diabetic regimen, follow-up with PCP for further management. Malnutrition: Patient was strongly advised for adequate p.o. intake, consider nutrition supplements out patiently. recently discharged for Multifocal pneumonia, clinically improving.complete antibiotics course as given last admission . Denies any cough or fever , no leukocytosis this admission. Consider repeating chest imaging in next 3 to 4 weeks . Follow-up PCP outpatient. Above management discussed with the patient in detail length with the present, time spent 40 min. Both understand above management and in agreement with the plan. Time Attestation Total time managing care of this patient today: 40 mintues. Discharge Coordination Time (in mins): 40min Quality: Safe Use of Opioids Does Pt have an Active Cancer Diagnosis on the Problem List?: No Quality: Stroke Does the patient have a stroke diagnosis?: No Physical Exam Vital Signs: Vital Signs: Last Vital Signs Temp 97.6 F 09/08/23 08:00 Pulse 81 09/08/23 08:00 Resp 18 09/08/23 08:00 BP 103/57 L 09/08/23 08:00 Pulse Ox 91 L 09/08/23 08:00 O2 Del Method Nasal Cannula 09/08/23 08:00 O2 Flow Rate 2 09/08/23 08:00 BMI result Body Mass Index 15.8 Appearance: Alert.? Oriented X3.? comfortable. cvs: rrr, [id number] , no murmur res: clear to auscultation ,no rhonchii or wheezing abd: no rebound or guarding ,nt, bs present. ext pulses present , no cyanosis . neuro: axo3 , nonfocal. DS: Data Data Completed and Pending Labs on day of discharge: Laboratory Results - last 24 hr 09/07/23 09/07/23 09/07/23 17:49 17:50 17:55 WBC 8.7 RBC 3.93 L Hgb 11.6 L Hct 36.4 L MCV 92.6 MCH 29.5 MCHC 31.9 RDW 15.2 Plt Count 258 MPV 9.3 L Immature Gran % (Auto) 0.7 H Neut % (Auto) 80.6 H Lymph % (Auto) 9.4 L [place] % (Auto) 5.9 Eos % (Auto) 3.1 Baso % (Auto) 0.3 Lymph # (Auto) 0.8 L [place] # (Auto) 0.5 Eos # (Auto) 0.3 Baso # (Auto) 0.0 Abs Immat Gran (auto) 0.06 H Absolute Neuts (auto) 7.0 Absolute Nucleated RBC 0.000 Nucleated RBC % (auto) 0.0 Smear Tech's Comments PT 11.5 INR 0.9 VBG pH 7.49 H VBG pCO2 57 VBG pO2 101 VBG HCO3 45 H VBG O2 Saturation 99.0 VBG Base Excess 18.7 Sodium 137 Potassium 4.3 D Chloride 92 L Carbon Dioxide 39 H Anion Gap 10 L BUN 29 H Creatinine 0.73 Estim Creat Clear Calc 41.9 Estimated GFR > 60 POC Glucose Random Glucose 395 H* Calcium 9.4 Total Bilirubin 0.2 Direct Bilirubin < 0.2 AST 14 ALT 16 Alkaline Phosphatase 70 Troponin I High Sens < 2.7 B-Natriuretic Peptide 126 H Total Protein 6.0 L Albumin 2.8 L Influenza Type A (PCR) NEGATIVE Influenza Type B (PCR) NEGATIVE RSV RNA Qual (PCR) NEGATIVE SARS-CoV-2 RNA (RT-PCR) NEGATIVE 09/07/23 09/07/23 09/07/23 17:57 19:58 22:00 WBC RBC Hgb Hct MCV MCH MCHC RDW Plt Count MPV Immature Gran % (Auto) Neut % (Auto) Lymph % (Auto) [place] % (Auto) Eos % (Auto) Baso % (Auto) Lymph # (Auto) [place] # (Auto) Eos # (Auto) Baso # (Auto) Abs Immat Gran (auto) Absolute Neuts (auto) Absolute Nucleated RBC Nucleated RBC % (auto) Smear Tech's Comments PT INR VBG pH VBG pCO2 VBG pO2 VBG HCO3 VBG O2 Saturation VBG Base Excess Sodium Potassium Chloride Carbon Dioxide Anion Gap BUN Creatinine Estim Creat Clear Calc Estimated GFR POC Glucose 348 H 368 H* 329 H Random Glucose Calcium Total Bilirubin Direct Bilirubin AST ALT Alkaline Phosphatase Troponin I High Sens B-Natriuretic Peptide Total Protein Albumin Influenza Type A (PCR) Influenza Type B (PCR) RSV RNA Qual (PCR) SARS-CoV-2 RNA (RT-PCR) 09/08/23 09/08/23 09/08/23 00:09 01:50 02:56 WBC RBC Hgb Hct MCV MCH MCHC RDW Plt Count MPV Immature Gran % (Auto) Neut % (Auto) Lymph % (Auto) [place] % (Auto) Eos % (Auto) Baso % (Auto) Lymph # (Auto) [place] # (Auto) Eos # (Auto) Baso # (Auto) Abs Immat Gran (auto) Absolute Neuts (auto) Absolute Nucleated RBC Nucleated RBC % (auto) Smear Tech's Comments PT INR VBG pH VBG pCO2 VBG pO2 VBG HCO3 VBG O2 Saturation VBG Base Excess Sodium Potassium Chloride Carbon Dioxide Anion Gap BUN Creatinine Estim Creat Clear Calc Estimated GFR POC Glucose 367 H* 343 H 301 H Random Glucose Calcium Total Bilirubin Direct Bilirubin AST ALT Alkaline Phosphatase Troponin I High Sens B-Natriuretic Peptide Total Protein Albumin Influenza Type A (PCR) Influenza Type B (PCR) RSV RNA Qual (PCR) SARS-CoV-2 RNA (RT-PCR) 09/08/23 09/08/23 09/08/23 04:12 05:13 07:22 WBC 5.3 RBC 3.69 L Hgb 10.8 L Hct 34.0 L MCV 92.1 MCH 29.3 MCHC 31.8 RDW 15.2 Plt Count 218 MPV 8.9 L Immature Gran % (Auto) 0.4 Neut % (Auto) 91.7 H Lymph % (Auto) 4.7 L [place] % (Auto) 3.2 Eos % (Auto) 0.0 Baso % (Auto) 0.0 Lymph # (Auto) 0.3 L [place] # (Auto) 0.2 Eos # (Auto) 0.0 Baso # (Auto) 0.0 Abs Immat Gran (auto) 0.02 Absolute Neuts (auto) 4.9 Absolute Nucleated RBC 0.000 Nucleated RBC % (auto) 0.0 Smear Tech's Comments VERIFIED PT INR VBG pH VBG pCO2 VBG pO2 VBG HCO3 VBG O2 Saturation VBG Base Excess Sodium 141 Potassium 4.1 Chloride 101 Carbon Dioxide 36 H Anion Gap 8 L BUN 25 H Creatinine 0.61 Estim Creat Clear Calc 50.2 Estimated GFR > 60 POC Glucose 234 H 143 H Random Glucose 233 H Calcium 9.1 Total Bilirubin 0.2 Direct Bilirubin AST 11 ALT 14 Alkaline Phosphatase 62 Troponin I High Sens B-Natriuretic Peptide Total Protein 5.5 L Albumin 2.6 L Influenza Type A (PCR) Influenza Type B (PCR) RSV RNA Qual (PCR) SARS-CoV-2 RNA (RT-PCR) Imaging Chest x-ray: Radiologist's impression: ITS Impressions Chest X-Ray 09/08/23 00:30 IMPRESSION: Emphysematous change with diffuse increased markings and patchy multilobar lung opacities. Similar findings were seen previously and on prior CT. Blunted costophrenic angles with bibasilar airspace disease possibly atelectasis or infiltrate. Discharge Plan Discharge Anticipated Discharge Date/Time: 09/08/23 11:00 Patient Disposition: Home, Self-Care Discharge Diagnosis: hypoxia- sec to copd ,need oxygen arrangement Referrals: Angel CRAWFORD [Outside] Vicky Treviño FNP [Primary Care Provider] - 1 Week Discharge Medications: Continued cholecalciferol (vitamin D3) [Vitamin D3] 10 mcg (400 unit) Tablet 10 mcg PO DAILY aspirin 81 mg Tablet,Chewable 81 mg PO DAILY PRN (Reason: Pain) cefuroxime axetil 500 mg tablet 500 mg PO BID 3 Days Qty: 6 0RF metformin 850 mg tablet 850 mg PO BID Qty: 60 0RF insulin lispro 100 unit/mL insulin pen, half-unit 1 sliding scale dose subcut USEASDIRECTD Qty: 15 0RF Rx Instructions: BG <111 0 units, 111-150 - 0 units, 151-200 2 units, 201-250 4 units, 251-300 6 units, 301-350 8 units, >350 10 units Women's 50 Plus Multivitamin 400 mcg-500 mg calcium-20 mcg tablet 1 tab PO DAILY magnesium citrate 125 mg capsule 125 mg PO BEDTIME lutein 20 mg capsule 20 mg PO DAILY Rx Instructions: give with meal/snack ascorbic acid (vitamin C) 500 mg capsule 500 mg PO DAILY (DME) OneTouch Ultra Blue Test Strip Strip See Rx Instructions .ROUTE .MEDSUPPLY Qty: 100 5RF Rx Instructions: Check fasting blood sugar daily at varied time (DME) blood-glucose meter Kit See Rx Instructions .ROUTE .MEDSUPPLY Qty: 1 0RF Rx Instructions: As directed- poc daily at varied time (DME) lancets [OneTouch Delica Lancets] 33 gauge misc See Rx Instructions .ROUTE .MEDSUPPLY Qty: 100 4RF Rx Instructions: Check blood sugar daily at varied time Discharge Orders: Discharge Order (Routine); Ordered 09/08/23 Ordered By: Vania Vasques Diet: Advance to usual diet Activity on Discharge: As tolerated Stand Alone Forms: Patient Portal Discharge page Print Language: [place] Care Plan Goals: Hypoxia, chronic secondary to COPD. Continue supplemental oxygen. RT consult to assess for home oxygen. consult for home oxygen arrangements-seen by repiratrory -home oxygen arrnaged -use oxygen 2 liter with ambulationa nd 1 liter at rest. recently discharged for Multifocal pneumonia, clinically improving.complete antibiotics course as given last admission . Consider repeating chest imaging in next 3 to 4 weeks . Follow-up PCP outpatient. Health Concerns: As above. Plan of Treatment: as above . Assessment: as above .
[2023-09-08 11:28] LABS: Glucose, Whole Blood 283 mg/dL (60-115)
[2023-09-08 12:00] VITALS: BP 110/55; PULSE 87; RESP 18; TEMP 36.2; O2SAT 91
--- NOTE | 2023-09-08 12:04 | PC.RT ---
Home Oxygen Evaluation done. Pt will require 1 L at rest and 2 L during ambulation. pt was showed how to use the Oxygen tank when she is at home. Matthias tank was given in full. [employer] rep well aware that the patient and family will need re-education on the use of her 02 concentrator as well as the use of the oxygen tank at home. I reminded pt to call Matthias when she got home with her .
== END 2023-09-08 13:45 | disposition home or self-care (01) ==
LOC: HO.ED 09-08 00:13 → HO.EDOVER 09-08 01:23 → HO.S3 09-08 07:17
PROVIDERS: Admitting Provider Internal Medicine; Emergency Provider Emergency Medicine; PCP Nurse Practitioner Family; Visit Provider Internal Medicine
DX: J96.11 Chronic respiratory failure with hypoxia (principal); J18.9 Pneumonia, unspecified organism; E11.65 Type 2 diabetes mellitus with hyperglycemia; R05.9 Cough, unspecified; E43 Unspecified severe protein-calorie malnutrition; Z68.1 Body mass index [BMI] 19.9 or less, adult; I10 Essential (primary) hypertension; E86.0 Dehydration; Z11.52 Encounter for screening for COVID-19; Z20.828 Contact with and (suspected) exposure to other viral communicable diseases; Z99.81 Dependence on supplemental oxygen; Z79.899 Other long term (current) drug therapy
CPT/HCPCS: 0241U; 36415; 71045; 80048; 80053; 80076; 82803; 82947; 83880; 84484; 85025; 85610; 93005; 96361; 96374; 99221; 99285; J2919; J2930

== ENCOUNTER → 2023-09-07 17:31 | Outpatient (BNV) | payer MEDICARE, SELFPAY | PROVIDERS: Admitting Provider Internal Medicine; Emergency Provider Emergency Medicine; PCP Nurse Practitioner Family; Visit Provider Internal Medicine Cardiovascular Disease | DX: R06.02 Shortness of breath (principal) | CPT/HCPCS: 93010 ==

== ENCOUNTER → 2023-09-08 01:13 | Outpatient (BNV) | payer MEDICARE, SELFPAY | PROVIDERS: Admitting Provider Internal Medicine; Emergency Provider Emergency Medicine; PCP Nurse Practitioner Family; Visit Provider Internal Medicine | DX: R09.02 Hypoxemia (principal); E11.9 Type 2 diabetes mellitus without complications; J18.9 Pneumonia, unspecified organism; E11.65 Type 2 diabetes mellitus with hyperglycemia; E43 Unspecified severe protein-calorie malnutrition | CPT/HCPCS: 99234; 99499 ==

== ENCOUNTER 2023-09-21 09:20 | Outpatient (AMB) | payer MEDICARE, SELFPAY ==
[2023-09-21 09:37] VITALS: PULSE 170; O2SAT 91; BMI 14.3
--- NOTE | 2023-09-21 09:37 | A.OFFVIS_ITS ---
Intake Vital Signs 09/21/23 09:37 Height 5 ft 3 in Weight 80 lb 7.5 oz BMI 14.3 Pulse 170 H Pulse Source Pulse Oximeter Pulse Oximetry (%) 91 L Oxygen Delivery Method Nasal Cannula Oxygen Flow Rate 2 Intake Visit Reasons: S/p hospital admit Intake Note: pt is here for follow up from , and states she is concerned over pulse being high, she is getting short, mostly doing things, moving around getting ready. Matthias is DME. Stock Selector Required: No Allergies sulfa Allergy (Unknown, Verified 09/21/23 10:15) diarrhea midazolam [From Versed] Adverse Reaction (Severe, Verified 09/21/23 10:15) bradycardia Medication List - Last Reconciled 09/21/23 by May Garcia MD ascorbic acid (vitamin C) 500 mg PO DAILY blood sugar diagnostic ([employer] Ultra Blue Test Strip) Check fasting blood sugar daily at varied time blood-glucose meter As directed- poc daily at varied time cholecalciferol (vitamin D3) (Vitamin D3) 10 mcg PO DAILY diltiazem HCl 30 mg PO BID lancets (RidePostTouch Delica Lancets) Check blood sugar daily at varied time lutein 20 mg PO DAILY magnesium citrate 125 mg PO BEDTIME metformin 850 mg PO BID [id number]-calcium carb-K1 400 mcg-500 mg calcium-20 mcg (Women's 50 Plus Multivitamin) 1 tab PO DAILY Do you need a note to return to daycare/school/sports/work: No HPI S/p hospital admit HPI Details 78 YEARS OLD FEMALE OF A VERY THIN BUILD , POST DISCHARGE FROM THE HOSPITAL, COMES FOR PULMONARY FOLLOW-UP. SHE DESCRIBES THE MAIN GOAL FOR COMING HERE IS TO GET [facility] FOR PORTABILITY. SHE WAS TREATED IN THE HOSPITAL 2 WEEKS AGO FOR PNEUMONIA AND RESPIRATORY FAILURE, TREATED WITH STEROIDS AND ANTIBIOTICS. DISCHARGED HOME ON OXYGEN, PATIENT HAS NOT BEEN USING ANY INHALER. SHE HAS BEEN USING OXYGEN , 2 L/MINUTE. SHE WAS PROBABLY FOUND TO BE TACHYCARDIAC WHEN SHE WAS IN THE HOSPITAL AND SHE IS SUPPOSED TO BE TAKING DILTIAZEM 30 MG B.I.D.. SHE IS NOT SURE IF SHE IS TAKING THIS MEDICINE. SHE IS VERY POOR HISTORIAN DENIES FEVER OR CHILLS . [facility] Medical History (Updated 09/21/23 @ 10:19 by May Garcia MD) Hypotension Hypotension Tachycardia Diabetes Sepsis Pneumonia Acute sinusitis Hypoxemia Pulmonary emphysema Pneumothorax Diabetes mellitus with microalbuminuria, without long-term current use of insulin Vaccination refused by patient Underweight Intermittent palpitations Diabetes mellitus with hyperglycemia, without long-term current use of insulin Hx of fracture of wrist H/O fracture of wrist Surgical History H/O wrist surgery History of femoral hernia repair Family History Father Diabetes mellitus Mother Essential hypertension Sister Breast cancer Social History Household Members: Spouse Housing: House Do you presently have visiting nurse or other home services: No Alcohol intake: never Comment: bed alarm is not working. put chair alarm on her Patient Tobacco Use Status: Never used Tobacco e-Cigarette/Vaping Use: Never Used Advance Directives Date on File: 06/16/22 service: No Current occupational status: retired Cognitive needs: No Hearing needs: No Vision needs: No Physical Exam Vital Signs: Last Vital Signs Pulse 170 H 09/21/23 09:37 Pulse Ox 91 L 09/21/23 09:37 Oxygen Delivery Method Nasal Cannula 09/21/23 09:37 Oxygen Flow Rate 2 09/21/23 09:37 BMI result Body Mass Index 14.3 Assessment & Plan Assessment & Plan (1) Pulmonary emphysema: Comment: Physical examination and the chest x-ray on 07/11/2022, indicate hyperinflated lungs, c/w pulmonary emphysema. Patient has had no pulmonary function testing. She was seen last year for the similar reason, never came back for follow-up and never had pulmonary function test. Again she is post hospitalization and treatment for pneumonia with respiratory failure. The main reason she comes in today is with the expectation that she will get a POC. It is hard for her to understand the process. Code(s): J43.9 - Emphysema, unspecified Plan: see below (2) Hypoxemia: Comment: Patient has chronic respiratory failure, with hypoxemia and mild hypercapnia. She is on oxygen at home 2 L/minute with the oxygen concentrator. She does have portable cylinders. Code(s): R09.02 - Hypoxemia Plan: She I advised her that she needs to have testing for oxygen conserving unit before she can get POC. (3) Tachycardia: Comment: She was sitting and the heart rate is persistently 170 per minute. Code(s): R00.0 - Tachycardia, unspecified Plan: Patient is being transported to the emergency room for cardiac monitoring and necessary treatment (4) Hypotension: Comment: She was sitting and we were not able to check her blood pressure. It may be because of persistent tachycardia. Code(s): I95.9 - Hypotension, unspecified Plan: See under tachycardia Coding Level of Care Code Est Pt Level 4 (98849) Diagnoses Pulmonary emphysema J43.9 Hypoxemia R09.02 Tachycardia R00.0 Hypotension I95.9
== END 2023-09-21 10:05 | disposition home or self-care (01) ==
PROVIDERS: PCP Nurse Practitioner Family; Visit Provider Internal Medicine
DX: J43.9 Emphysema, unspecified (principal); R09.02 Hypoxemia; R00.0 Tachycardia, unspecified; I95.9 Hypotension, unspecified
CPT/HCPCS: 99214

== ENCOUNTER 2023-09-21 10:10 | Emergency (ER) | payer MEDICARE, SELFPAY ==
--- NOTE | 2023-09-21 | ECG_ITS ---
Test Reason : TACHYCARDIA Blood Pressure : / mmHG Vent. Rate : 167 BPM Atrial Rate : 000 BPM P-R Int : 000 ms QRS Dur : 088 ms QT Int : 276 ms P-R-T Axes : 000 139 161 degrees QTc Int : 460 ms Suspect limb lead reversal, interpretation assumes no reversal Supraventricular tachycardia Minimal voltage criteria for LVH, may be normal variant ( [place] product ) Lateral infarct , age undetermined Abnormal ECG When compared with ECG of 07-SEP-2023 19:42, Vent. rate has increased BY 73 BPM Lateral infarct is now Present Referred By: Generic ED Physician Electronically Signed By:DELFINO YODER
--- NOTE | ~2023-09-21 | XR_ITS ---
EXAMINATION: XR CHEST CLINICAL INFORMATION: Tachycardia COMPARISON: Chest radiograph 09/08/2023 and 09/03/2023. CT angiogram chest 09/01/2023 TECHNIQUE: Frontal view of the chest was obtained. FINDINGS: The lungs are hyperinflated. Heart size is normal. There is no evidence of CHF. Chronic changes are seen consistent with bronchial thickening and plugging better demonstrated on the recent CT chest. No new focal consolidation. No significant pleural effusions or pneumothorax. XR/XR chest 1V IMPRESSION: No acute intrathoracic disease. Chronic changes as described above.
[2023-09-21 10:12] VITALS: BP 91/74; PULSE 168; RESP 18; TEMP 36.6; O2SAT 95; BMI 14.6
--- NOTE | 2023-09-21 10:44 | ED_ITS ---
HPI - Arrhythmia/Palpitations General Chief Complaint: Arrhythmia/Palpitations Stated Complaint: unable to find heart rate Time Seen by Provider: 09/21/23 10:25 Source: patient, family and old records reviewed Mode of arrival: ambulatory Limitations: no limitations History of Present Illness HPI narrative: 78 yo female with hx of hypotension, frequent SVT was on metoprolol until 08/24 switched to diltiazem 30mg by Arpit given her dyspnea and O2 needs, emphysema, DM, she comes in with c/o intermittent worsening heart rate that normally resolves when she goes to sleep but now her HR goes up to 170s and stays there. She has runs of this that last 2 days and go away. She thinks the diltiazem made it worse so she stopped it a couple of days ago. She feels more short of breath. She denies CP, dizziness, n/v/d. MD complaint: rapid heart beat, heart racing and palpitations Onset (ago): day(s) (1) Duration: constant Severity: severe Context: occurred during rest and occurred during exertion Arrhythmia history: SVT Associated symptoms: shortness of breath Related Data Home Medications ?Medication ?Instructions ?Recorded ?Confirmed ascorbic acid (vitamin C) 500 mg 500 mg PO DAILY 05/26/20 09/21/23 capsule lutein 20 mg capsule 20 mg PO DAILY 05/26/20 09/21/23 magnesium citrate 125 mg capsule 125 mg PO BEDTIME 05/26/20 09/21/23 yraolsjv-ksv-wtdey ac 400 1 tab PO DAILY 05/26/20 09/21/23 mcg-calcium carb 500 mg-vit K1 20 mcg tablet (Women's 50 Plus Multivitamin) cholecalciferol (vitamin D3) 10 10 mcg PO DAILY 07/11/22 09/21/23 mcg (400 unit) tablet (Vitamin D3) diltiazem HCl 30 mg tablet 30 mg PO BID 09/21/23 09/21/23 Previous Rx's ?Medication ?Instructions ?Recorded blood sugar diagnostic ([employer] #100 ea 07/08/20 Ultra Blue Test Strip) blood-glucose meter #1 ea 07/08/20 lancets 33 gauge (OneTouch Delica #100 ea 07/08/20 Lancets) metformin 850 mg tablet 850 mg PO BID #60 tabs 09/05/23 metoprolol succinate 25 mg 12.5 mg (1/2 x 25 mg) PO DAILY #30 09/21/23 tablet,extended release 24 hr tabs Allergies Allergy/AdvReac Type Severity Reaction Status Date / Time sulfa Allergy Unknown diarrhea Verified 09/21/23 10:15 midazolam [From Versed] AdvReac Severe bradycardia Verified 09/21/23 10:15 Review of Systems 2 Review of Systems: Constitutional : No Fever, No Chills ENT/Mouth : No sore throat, No Rhinorrhea, No Swallowing Difficulty Eyes: No Eye Pain, No Swelling, No Redness Cardiovascular : No Chest Pain, positive SOB, No Orthopnea, no Edema, pos palpitations Respiratory : No Cough, No Sputum, No Wheezing, positive dyspnea Gastrointestinal : No Nausea, No Vomiting, No Diarrhea, No abdominal Pain, No Hematochezia, No Melena Genitourinary : No Dysuria, No Urinary Frequency, No Hematuria Musculoskeletal : No joint pain, No Myalgias Skin : No Skin Lesions, No rash Neuro : No Weakness, No Numbness, No Dizziness, No Headache Psych : No Anxiety/Panic, No Depression All other systems reviewed and are negative [facility] Past Medical History Attestation statement: The following information was validated with the patient. Source: old records reviewed Medical History Hypotension Hypotension Tachycardia Diabetes Sepsis Pneumonia Acute sinusitis Hypoxemia Pulmonary emphysema Pneumothorax Diabetes mellitus with microalbuminuria, without long-term current use of insulin Vaccination refused by patient Underweight Intermittent palpitations Diabetes mellitus with hyperglycemia, without long-term current use of insulin Hx of fracture of wrist H/O fracture of wrist Surgical History H/O wrist surgery History of femoral hernia repair Family History Family History Father Diabetes mellitus Mother Essential hypertension Sister Breast cancer Social History Social History Household Members: Spouse Housing: House Do you presently have visiting nurse or other home services: No Alcohol intake: never Comment: bed alarm is not working. put chair alarm on her Patient Tobacco Use Status: Never used Tobacco e-Cigarette/Vaping Use: Never Used Advance Directives: Yes Advance Directives on File: Yes Advance Directives Date on File: 06/16/22 service: No Current occupational status: retired Cognitive needs: No Hearing needs: No Vision needs: No Physical Exam 2 Vital Signs: Vital Signs: Last Vital Signs Temp 97.4 F 09/21/23 10:46 Pulse 73 09/21/23 10:57 Resp 25 H 09/21/23 10:57 BP 99/65 09/21/23 10:57 Pulse Ox 96 09/21/23 10:57 O2 Del Method Room Air 09/21/23 10:57 Oxygen Flow Rate 2 09/21/23 10:12 BMI result Body Mass Index 14.6 Appearance: Alert. Oriented X3. No acute distress. Frail and thin Eyes: Pupils equal, round and reactive to light. ENT: Pharynx normal. Neck: Normal inspection. Neck supple. CVS: tachycardic and regular heart rate and rhythm. Pulses normal. Respiratory: No respiratory distress. Breath sounds diminished Abdomen: Soft and nontender. Skin: Skin warm and dry. Normal skin color. Normal skin turgor. Extremities: No lower extremity edema. Neuro: Oriented X 3. No motor deficit. No sensory deficit. Course Course Course Narrative: broke after 2.5mg of lopressor Reevaluation(s) Reevaluation #1: the patient's blood sugar is high she keeps eating and we have spoken to her about holding off but she continues to try to eat and is demanding a diet. I am worried at times she is not able to grasp her medical disease and issues. Reevaluation #2: IVF not given we have tried to control her blood sugar from the beginning but she is repeatedly just drinking and eating sugary things and does not want to follow diet. at this time she can manage her DM with her doctor as she is not following treatment in ED Medications Administered Discontinued Medications Generic Name Dose Route Start Last Admin Trade Name Freq PRN Reason Stop Dose Admin Sodium Chloride 1,000 mls @ 999 mls/hr 09/21/23 10:30 09/21/23 13:29 Ns IV 09/21/23 11:30 Infused .Q1H1M MARBELLA Infusion Insulin Human Regular 5 unit 09/21/23 11:59 09/21/23 12:53 Insulin Regular, Human 100 Unit/Ml 3 Ml Vial IVPUSH 09/21/23 12:00 5 unit ONCE ONE Administration Metoprolol Tartrate 2.5 mg 09/21/23 10:41 09/21/23 10:53 Metoprolol Tartrate 5 Mg/5 Ml Vial IVPUSH 09/21/23 10:42 2.5 mg ONCE ONE Administration Protocol Medical Decision Making Medical Decision Making [facility] Narrative: 78 yo female with hx of hypotension, frequent SVT was on metoprolol until 08/24 switched to diltiazem 30mg by Arpit given her dyspnea and O2 needs, emphysema, DM here with narrow complex tachycardia has known SVT in setting of not taking her diltiazem because it makes her feel worse. She has soft pressures but mentating well. At this time will obtain labs, CXR, EKG and start on very low dose lopressor 2.5mg. No signs of clinical CHF Differential Diagnosis Differential Diagnoses: The differential diagnosis associated with the presentation includes SVT, noncompliance, lyte abnormality Admission/Observation Consideration of admission/observation: Escalation of care including admission/observation considered trop no delta has been in NSR no clinical signs of CHF but BNP is elevated Consult Healthcare Provider Management of the patient was discussed with: Urban Forester will put her back on metoprolol 12.5mg daily ER as she tolerated that better after discussion with cardiology I think the BNP is from rapid rate no increased O2 use, no hypoxia, no peripheral edema, no JVD and no CHF on CXR Lab Data [facility] Lab Attestation statement: I reviewed the patient's lab results. 09/21/23 13:39 09/21/23 11:26 Labs: Lab Results 09/21/23 09/21/23 09/21/23 Range/Units 10:42 11:26 11:26 Sodium 140 (135-145) mmol/L Potassium 4.4 (3.3-5.1) mmol/L Chloride 103 (96-108) mmol/L Carbon Dioxide 28 (22-29) mmol/L Anion Gap 13 (12-20) BUN 29 H (9-16) mg/dL Creatinine 1.17 (0.5-1.4) mg/dL Estim Creat Clear Calc 23.4 Estimated GFR 45 POC Glucose (60-115) mg/dL Random Glucose 447 H* (60-115) mg/dL Calcium 9.5 (8.4-10.2) mg/dL Magnesium 1.9 1.9 (1.6-2.6) mg/dL Total Bilirubin 0.3 (0.0-1.0) mg/dL AST 22 (5-31) U/L ALT 20 (0-31) U/L Alkaline Phosphatase 88 (39-117) U/L Troponin I High Sens 69.3 H* D (<3.5-17.0) ng/L B-Natriuretic Peptide 1353 H (<100) pg/mL Total Protein 7.0 (6.5-8.0) g/dL Albumin 3.4 L (3.5-5.0) g/dL TSH 2.74 (0.32-4.0) uIU/mL 09/21/23 09/21/23 Range/Units 12:53 13:39 Sodium (135-145) mmol/L Potassium (3.3-5.1) mmol/L Chloride (96-108) mmol/L Carbon Dioxide (22-29) mmol/L Anion Gap (12-20) BUN (9-16) mg/dL Creatinine (0.5-1.4) mg/dL Estim Creat Clear Calc Estimated GFR POC Glucose 398 H* (60-115) mg/dL Random Glucose (60-115) mg/dL Calcium (8.4-10.2) mg/dL Magnesium (1.6-2.6) mg/dL Total Bilirubin (0.0-1.0) mg/dL AST (5-31) U/L ALT (0-31) U/L Alkaline Phosphatase (39-117) U/L Troponin I High Sens 79.3 H* (<3.5-17.0) ng/L B-Natriuretic Peptide (<100) pg/mL Total Protein (6.5-8.0) g/dL Albumin (3.5-5.0) g/dL TSH (0.32-4.0) uIU/mL Independent Interpretation I performed an independent interpretation of an: EKG and Plain X-Ray (no CHF) Interpretation: Rate: 167 Rhythm: narrow regular complex tachycardia [place]: rightward. Normal QRS complex. ST T wave : artifact noted but no CATINA qTC: 460 prior studies: The study has been interpreted contemporaneously by me. Rate: 83 Rhythm: NSR [place]: normal Normal P waves. Normal NOEL. Normal QRS complex. ST T wave : normal no [place], inverted t waves V1 and V2 qTC: 437 prior studies: no acute ischemia The study has been interpreted contemporaneously by me. . Radiology Impression Discussion of test interpretation with radiology: I have reviewed the radiologist's reading. Independent Historian Clinical information obtained from an independent historian. History obtained from or confirmed by: Spouse External Record Review External record reviewed: Inpatient record and Office record Prescription Management I considered prescription management with: Other Critical Care Time Critical Care Time Critical Care Time: Yes Total Critical Care Time: 60 Attestation: repeat labs, IV insulin, IV lopressor, treatment of SVT I attest to this time spent taking care of the patient Discharge Plan Discharge Clinical Impression: Supraventricular tachycardia, Acute hyperglycemia Patient Disposition: Home, Self-Care Instructions: Supraventricular Tachycardia (ED), Diabetic Hyperglycemia (ED) Additional Instructions: return for worsening breathing, swelling, chest pain, dizziness or any other concerns. STOP THE DILTIAZEM start back on metoprolol succinate 12.5mg daily follow up your heart doctor Prescriptions: New metoprolol succinate 25 mg tablet extended release 24 hr 12.5 mg PO DAILY Qty: 30 0RF No Action cholecalciferol (vitamin D3) [Vitamin D3] 10 mcg (400 unit) Tablet 10 mcg PO DAILY metformin 850 mg tablet 850 mg PO BID Qty: 60 0RF Women's 50 Plus Multivitamin 400 mcg-500 mg calcium-20 mcg tablet 1 tab PO DAILY magnesium citrate 125 mg capsule 125 mg PO BEDTIME lutein 20 mg capsule 20 mg PO DAILY Rx Instructions: give with meal/snack ascorbic acid (vitamin C) 500 mg capsule 500 mg PO DAILY (DME) OneTouch Ultra Blue Test Strip Strip See Rx Instructions .ROUTE .MEDSUPPLY Qty: 100 5RF Rx Instructions: Check fasting blood sugar daily at varied time (DME) blood-glucose meter Kit See Rx Instructions .ROUTE .MEDSUPPLY Qty: 1 0RF Rx Instructions: As directed- poc daily at varied time (DME) lancets [OneTouch Delica Lancets] 33 gauge misc See Rx Instructions .ROUTE .MEDSUPPLY Qty: 100 4RF Rx Instructions: Check blood sugar daily at varied time diltiazem HCl 30 mg tablet 30 mg PO BID Print Language: American
[2023-09-21 10:46] VITALS: BP 81/48; PULSE 165; RESP 26; TEMP 36.3
[2023-09-21] MEDS: Metoprolol Tartrate 5 MG/5 ML VIAL 2.5 MG IVPUSH (10:53)
[2023-09-21] MEDS: 0.9 % Sodium Chloride 1,000 ML 999 ML IV (10:53)
[2023-09-21 10:57] VITALS: BP 99/65; PULSE 73; RESP 25; O2SAT 96
--- NOTE | 2023-09-21 11:02 | ECG_ITS ---
Test Reason : CONVERTED TO NSR Blood Pressure : / mmHG Vent. Rate : 083 BPM Atrial Rate : 083 BPM P-R Int : 144 ms QRS Dur : 072 ms QT Int : 372 ms P-R-T Axes : 077 064 065 degrees QTc Int : 437 ms Normal sinus rhythm Possible Left atrial enlargement Borderline ECG When compared with ECG of 21-SEP-2023 10:23, Vent. rate has decreased BY 84 BPM Criteria for Lateral infarct are no longer Present Nonspecific T wave abnormality no longer evident in Lateral leads Referred By: Diana Wright Electronically Signed By:DELFINO YODER
[2023-09-21 11:16] LABS: Troponin-I High Sensitivity 69.3 ng/L (<3.5-17.0)
[2023-09-21 11:50] LABS: Alanine Aminotransferase 20 U/L (0-31); Albumin Level 3.4 g/dL (3.5-5.0); Alkaline Phosphatase 88 U/L (39-117); Anion Gap 13 (12-20); Aspartate Amino Transferase 22 U/L (5-31); Bilirubin Total 0.3 mg/dL (0.0-1.0); Blood Urea Nitrogen 29 mg/dL (9-16); Calcium 9.5 mg/dL (8.4-10.2); Carbon Dioxide 28 mmol/L (22-29); Chloride 103 mmol/L (96-108); Creatinine Clr Calc Pharmacy 23.4; Estimated Glomerular Filt Rate 45; Magnesium 1.9 mg/dL (1.6-2.6); Potassium 4.4 mmol/L (3.3-5.1); Sodium 140 mmol/L (135-145)
[2023-09-21 11:52] LABS: Glucose Random 447 mg/dL (60-115)
[2023-09-21 11:55] LABS: B Type Natriuretic Peptide 1353 pg/mL (<100)
[2023-09-21 11:56] LABS: Magnesium 1.9 mg/dL (1.6-2.6)
[2023-09-21 12:13] LABS: TSH reflex Free T4 2.74 uIU/mL (0.32-4.0)
[2023-09-21] MEDS: Insulin Regular, Human 100 UNIT/ML 3 ML VIAL IVPUSH (12:53)
[2023-09-21 12:58] LABS: Glucose, Whole Blood 398 mg/dL (60-115)
[2023-09-21 14:14] LABS: Troponin-I High Sensitivity 79.3 ng/L (<3.5-17.0)
[2023-09-21 15:15] VITALS: BP 98/61; PULSE 82; RESP 33; TEMP 36.4; O2SAT 97
== END 2023-09-21 17:00 | disposition home or self-care (01) ==
PROVIDERS: Emergency Provider Emergency Medicine; PCP Nurse Practitioner Family
DX: I47.10 Supraventricular tachycardia, unspecified (principal); E11.65 Type 2 diabetes mellitus with hyperglycemia; J43.9 Emphysema, unspecified; Z79.899 Other long term (current) drug therapy
CPT/HCPCS: 36415; 71045; 80053; 82947; 83735; 83880; 84443; 84484; 93005; 96361; 96374; 96375; 99212; 99284

== ENCOUNTER → 2023-09-21 10:23 | Outpatient (BNV) | payer MEDICARE, SELFPAY | PROVIDERS: Emergency Provider Emergency Medicine; PCP Nurse Practitioner Family; Visit Provider Internal Medicine | DX: R00.0 Tachycardia, unspecified (principal) | CPT/HCPCS: 93010 ==

== ENCOUNTER 2023-09-25 10:26 | Outpatient (AMB) | payer MEDICARE, SELFPAY ==
[2023-09-25 10:38] VITALS: BP 122/80; PULSE 91; O2SAT 91; BMI 14.5
--- NOTE | 2023-09-25 10:38 | A.OFFVIS_ITS ---
Vital Signs 09/25/23 10:38 Height 5 ft 2 in Weight 79 lb 5.863 oz BMI 14.5 BP 122/80 Blood Pressure Location Lt brachial Position Sitting Pulse 91 Pulse Source Pulse Oximeter Pulse Oximetry (%) 91 L Oxygen Delivery Method Nasal Cannula Oxygen Flow Rate 2 Intake Visit Reasons: HH f/u Intake Note: pt is here for follow up heart rate and pulse are much better, she would like a poc trial. 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 Allergies sulfa Allergy (Unknown, Verified 09/25/23 11:05) diarrhea midazolam [From Versed] Adverse Reaction (Severe, Verified 09/25/23 11:05) bradycardia Medication List - Last Reconciled 09/25/23 by May Garcia MD ascorbic acid (vitamin C) 500 mg PO DAILY blood sugar diagnostic ([employer] Ultra Blue Test Strip) Check fasting blood sugar daily at varied time blood-glucose meter As directed- poc daily at varied time cholecalciferol (vitamin D3) (Vitamin D3) 10 mcg PO DAILY diltiazem HCl 30 mg PO BID lancets (ImagistxTouch Delica Lancets) Check blood sugar daily at varied time lutein 20 mg PO DAILY magnesium citrate 125 mg PO BEDTIME metformin 850 mg PO BID metoprolol succinate ER 12.5 mg (1/2 x 25 mg) PO DAILY gz-fet-jeqym-calcium carb-K1 400 mcg-500 mg calcium-20 mcg (Women's 50 Plus Multivitamin) 1 tab PO DAILY Do you need a note to return to daycare/school/sports/work: No HPI HPI HH f/u: Details: 78 years old female of a very thin build, a case of pulmonary emphysema/COPD , Was here on 09/20, and was found to be tachycardiac/hypotensive, so sent to the emergency room. She was treated with IV metoprolol and converted to sinus rhythm. She was not admitted to the hospital and was sent home. Since that day she is on metoprolol ER 12.5 mg a day, and she is not using diltiazem. Her. Heart rate has remained under control Her COPD is still there but she has not using any active bronchodilators. Her main problem is she becomes short of breath on minimal exertion with hypoxemia. She does have a portable cylinder, , which is heavy to carry and she is anxious to get POC . [facility] Medical History Hypotension Hypotension Tachycardia Diabetes Sepsis Pneumonia Acute sinusitis Hypoxemia Pulmonary emphysema Pneumothorax Diabetes mellitus with microalbuminuria, without long-term current use of insulin Vaccination refused by patient Underweight Intermittent palpitations Diabetes mellitus with hyperglycemia, without long-term current use of insulin Hx of fracture of wrist H/O fracture of wrist Surgical History H/O wrist surgery History of femoral hernia repair Family History Father Diabetes mellitus Mother Essential hypertension Sister Breast cancer Social History Household Members: Spouse Housing: House Do you presently have visiting nurse or other home services: No Alcohol intake: never Comment: bed alarm is not working. put chair alarm on her Patient Tobacco Use Status: Never used Tobacco e-Cigarette/Vaping Use: Never Used Advance Directives Date on File: 06/16/22 service: No Current occupational status: retired Cognitive needs: No Hearing needs: No Vision needs: No Review of Systems Const All systems reviewed & are unremarkable except as noted in HPI and below Eyes Reports no additional complaints ENT Reports no additional complaints Card Denies chest pain, Denies irregular heart rhythm, Denies leg edema and Reports dyspnea on exertion Resp Reports as per HPI and Reports dyspnea on exertion GI Reports no additional complaints Reports no additional complaints Musc Reports muscle weakness (Part of general weakness) Skin/Breast Reports system reviewed and no additional complaints, except as documented Neuro Reports no additional complaints Psych Reports no additional complaints Endo Reports no additional complaints Aller/Immun Reports no additional complaints Physical Exam Vital Signs: Last Vital Signs Pulse 91 09/25/23 10:38 BP 122/80 09/25/23 10:38 Pulse Ox 91 L 09/25/23 10:38 Oxygen Delivery Method Nasal Cannula 09/25/23 10:38 Oxygen Flow Rate 2 09/25/23 10:38 BMI result Body Mass Index 14.5 Last Vital Signs Const Other: She is of a thin build, somewhat emaciated . General: comfortable, no acute distress, alert and awake Orientation/consciousness: patient oriented x3 HEENT Head: Yes normal to inspection General nose exam: No nasal polyps present and No nasal discharge present Face and sinus: Yes sinuses nontender Mouth: oropharynx normal Throat: Yes posterior oropharynx normal Eyes General: appearance normal, both eyes and all related structures Neck Neck: Yes normal visual inspection, Yes no lymphadenopathy, Yes trachea midline and Yes no JVD Thyroid: Thyroid normal Chest Chest palpation & inspection: normal inspection of the chest, normal palpation of entire chest wall and no tenderness Resp Other: Chest wall is very thin. Percussion note hyper-resonant. Breath sounds are slightly distant, there are no crepitations or wheezes. Cardio Palpation: normal PMI Rate: regular rate Rhythm: regular rhythm Heart sounds: no gallops and no murmurs GI Palpation (GI): Soft to palpation, nontender, No hepatosplenomegaly present and no masses Auscultation: normal bowel sounds Back/Spine/Pelvis Thoracic/Lumbar Spine: thoracic and lumbar spine normal to inspection Skin General skin exam: no rashes or lesions noted Neuro General: patient oriented x3 and no focal motor deficits Cranial nerves: Yes CN's II-XII intact bilaterally Extrem General: Yes normal to inspection, Yes no clubbing, cyanosis or edema and Yes no calf tenderness Psych Speech and movement: Normal speech and movement present Office Procedures 6 Minute Walk Time:: 11:25 SPO2 % at rest: 90 Pulse at rest: 85 SPO2 % during excercise: 86 Pulse during excercise: 88 SPO2 % after excercise: 93 Pulse after excercise: 94 Distance in yards walked: 100 Barry Score: 7 Performance Observations:: Patient walked slowly on level ground without assist. O2 saturation dropped to 86% after only 3 yards. Stopped to rest and applied pulsed O2 on at setting 3. O2 saturation recovered to 93% pulse of 96. Patient tires easily but maintained O2 saturation of 93% for the walk on setting 3. [id number] - 6 Minute Walk Results Reviewed Results Reviewed: 09/21/23 CHEST XRAY The lungs are hyperinflated. Heart size is normal. There is no evidence of CHF. Chronic changes are seen consistent with bronchial thickening and plugging better demonstrated on the recent CT chest. No new focal consolidation. No significant pleural effusions or pneumothorax. Assessment & Plan Assessment & Plan (1) Pulmonary emphysema: Comment: Physical examination and the chest x-ray ,c/w Pulmonary Emphysema. Lungs clear Code(s): J43.9 - Emphysema, unspecified Category: Medical Plan: Patient not using any bronchodilators. Does not smoke at present. Mainly being treated with oxygen . (2) Hypoxemia: Comment: Patient has chronic respiratory failure, with hypoxemia and mild hypercapnia. She is on oxygen at home 2 L/minute with the oxygen concentrator. She does have portable cylinders. Code(s): R09.02 - Hypoxemia Category: Medical Plan: Had 6 minute walk, , desaturates quickly and needs O2 2 L/minute. Then she was walked with the, O2 conserving mode, she did okay with O2 3 L/minute, maintaining the O2 sat at 92%. We are going to order, oxygen conserving unit for her, POC at 3 L/minute. Orders: Orders AMB 6 minute walk Today J43.9 - Emphysema, unspecified, R09.02 - Hypoxemia
[2023-09-25 11:59] VITALS: PULSE 85; O2SAT 90
== END 2023-09-25 13:20 | disposition home or self-care (01) ==
PROVIDERS: PCP Nurse Practitioner Family; Visit Provider Internal Medicine
DX: J43.9 Emphysema, unspecified (principal); R09.02 Hypoxemia
CPT/HCPCS: 94618; 99213

== ENCOUNTER → 2023-09-25 10:28 | Outpatient (BNVA) | payer MEDICARE, SELFPAY | PROVIDERS: PCP Nurse Practitioner Family; Visit Provider Internal Medicine | DX: J43.9 Emphysema, unspecified (principal); R09.02 Hypoxemia | CPT/HCPCS: 94618; 99212 ==

== ENCOUNTER → 2023-10-25 14:04 | Outpatient (BNVA) | payer MEDICARE, SELFPAY | PROVIDERS: PCP Nurse Practitioner Family; Visit Provider Internal Medicine | DX: J43.9 Emphysema, unspecified (principal); R09.02 Hypoxemia; Z99.81 Dependence on supplemental oxygen | CPT/HCPCS: 99212 ==

== ENCOUNTER 2023-10-25 14:05 | Outpatient (AMB) | payer MEDICARE, SELFPAY ==
[2023-10-25 14:13] VITALS: BP 110/62; PULSE 95; O2SAT 94; BMI 14.4
--- NOTE | 2023-10-25 14:13 | A.OFFVIS_ITS ---
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: No Allergies sulfa Allergy (Unknown, Verified 10/25/23 14:21) diarrhea midazolam [From Versed] Adverse Reaction (Severe, Verified 10/25/23 14:21) bradycardia Medication List - Last Reconciled 10/25/23 by May Garcia MD ascorbic acid (vitamin C) 500 mg PO DAILY blood sugar diagnostic ([employer] Ultra Blue Test Strip) Check fasting blood sugar daily at varied time blood-glucose meter As directed- poc daily at varied time cholecalciferol (vitamin D3) (Vitamin D3) 10 mcg PO DAILY diltiazem HCl 30 mg PO BID lancets (RecondoTouch Delica Lancets) Check blood sugar daily at varied time lutein 20 mg PO DAILY magnesium citrate 125 mg PO BEDTIME metformin 850 mg PO BID metoprolol succinate ER 12.5 mg (1/2 x 25 mg) PO DAILY mx-nbv-kblde-calcium carb-K1 400 mcg-500 mg calcium-20 mcg (Women's 50 Plus Mult ivitamin) 1 tab PO DAILY Do you need a note to return to daycare/school/sports/work: No HPI HPI Hypoxia: Details: 78 YEARS OLD VERY PLEASANT FEMALE OF A THIN BUILD, WITH DIAGNOSIS OF CHRONIC OBSTRUCTIVE PULMONARY DISEASE/HYPOXEMIA. IS ON O2 1 L/MINUTE AT REST AND 2 L/MINUTE WHEN SHE WALKS AROUND. SHE IS STILL WAITING TO GET POC, BUT SHE DOES HAVE A SMALL PORTABLE CYLINDER FOR PORTABILITY AND A STATIONARY CONCENTRATOR AT HOME. DENIES ANY. COUGH FEVER OR CHILLS DENIES ANY NASAL CONGESTION. FEELS RELATIVELY BETTER THAN BEFORE LONG SHE STAYS ON OXYGEN. HER MAIN CONCERN IS HOW SOON IS SHE GOING TO GET THE POC. THE PATIENT AND HER DID HAVE SOME QUESTIONS ABOUT THE OXYGEN , LEVELS AND DEFINITION OF HYPOXEMIA ETC.. I HAD A GOOD TALK WITH THEM AND EXPLAINED EVERYTHING IN DETAIL.. [facility] Medical History Hypotension Hypotension Tachycardia Diabetes Sepsis Pneumonia Acute sinusitis Hypoxemia Pulmonary emphysema Pneumothorax Diabetes mellitus with microalbuminuria, without long-term current use of insulin Vaccination refused by patient Underweight Intermittent palpitations Diabetes mellitus with hyperglycemia, without long-term current use of insulin Hx of fracture of wrist H/O fracture of wrist Surgical History H/O wrist surgery History of femoral hernia repair Family History Father Diabetes mellitus Mother Essential hypertension Sister Breast cancer Social History Household Members: Spouse Housing: House Do you presently have visiting nurse or other home services: No Alcohol intake: never Comment: bed alarm is not working. put chair alarm on her Patient Tobacco Use Status: Never used Tobacco e-Cigarette/Vaping Use: Never Used Advance Directives Date on File: 06/16/22 service: No Current occupational status: retired Cognitive needs: No Hearing needs: No Vision needs: No Review of Systems Const All systems reviewed & are unremarkable except as noted in HPI and below Eyes Reports no additional complaints ENT Reports no additional complaints Card Denies chest pain, Denies irregular heart rhythm, Denies leg edema and Reports dyspnea on exertion Resp Reports as per HPI and Reports dyspnea on exertion GI Reports no additional complaints Reports no additional complaints Musc Reports muscle weakness (Part of general weakness) Skin/Breast Reports system reviewed and no additional complaints, except as documented Neuro Reports no additional complaints Psych Reports no additional complaints Endo Reports no additional complaints Aller/Immun Reports no additional complaints Physical Exam Vital Signs: Last Vital Signs Const Other: She is of a thin build, somewhat emaciated . General: comfortable, no acute distress, alert and awake Orientation/consciousness: patient oriented x3 HEENT Head: Yes normal to inspection General nose exam: No nasal polyps present and No nasal discharge present Face and sinus: Yes sinuses nontender Mouth: oropharynx normal Throat: Yes posterior oropharynx normal Eyes General: appearance normal, both eyes and all related structures Neck Neck: Yes normal visual inspection, Yes no lymphadenopathy, Yes trachea midline and Yes no JVD Thyroid: Thyroid normal Chest Chest palpation & inspection: normal inspection of the chest, normal palpation of entire chest wall and no tenderness Resp Other: Chest wall is very thin. Percussion note hyper-resonant. Breath sounds are slightly distant, there are no crepitations or wheezes. Cardio Palpation: normal PMI Rate: regular rate Rhythm: regular rhythm Heart sounds: no gallops and no murmurs GI Palpation (GI): Soft to palpation, nontender, No hepatosplenomegaly present and no masses Auscultation: normal bowel sounds Back/Spine/Pelvis Thoracic/Lumbar Spine: thoracic and lumbar spine normal to inspection Skin General skin exam: no rashes or lesions noted Neuro General: patient oriented x3 and no focal motor deficits Cranial nerves: Yes CN's II-XII intact bilaterally Extrem General: Yes normal to inspection, Yes no clubbing, cyanosis or edema and Yes no calf tenderness Psych Speech and movement: Normal speech and movement present Assessment & Plan Assessment & Plan (1) Pulmonary emphysema: Comment: Physical examination and the chest x-ray ,c/w Pulmonary Emphysema. Lungs clear Code(s): J43.9 - Emphysema, unspecified Category: Medical Plan: NO NEED OF USING ANY BRONCHODILATOR INHALER, SHE DOES NOT HAVE ANY WHEEZES. (2) Hypoxemia: Comment: Patient has chronic respiratory failure, with hypoxemia and mild hypercapnia. She is on oxygen at home 2 L/minute with the oxygen concentrator. She does have portable cylinders. Waiting to get a POC . Code(s): R09.02 - Hypoxemia Category: Medical Plan: For the time being continue O2 1 L/minute at rest and 2 L/minute with the portable unit. Coding Level of Care Code Est Pt Level 3 (89717) Diagnoses Pulmonary emphysema J43.9 Hypoxemia R09.02
== END 2023-10-25 15:13 | disposition home or self-care (01) ==
PROVIDERS: PCP Nurse Practitioner Family; Visit Provider Internal Medicine
DX: J43.9 Emphysema, unspecified (principal); R09.02 Hypoxemia
CPT/HCPCS: 99213

== ENCOUNTER 2023-11-10 14:19 | Outpatient (AMB) | payer MEDICARE, SELFPAY ==
--- NOTE | 2023-11-10 14:23 | A.OFFVIS_ITS ---
Vital Signs 11/10/23 14:24 Height 5 ft 2 in Weight 73 lb 3.095 oz BMI 13.4 BP 94/62 Blood Pressure Location Lt brachial Position Sitting Pulse 101 H Pulse Source Pulse Oximeter Intake Visit Reasons: 3 month f/u Facilities Manager Required: No Allergies sulfa Allergy (Unknown, Verified 11/10/23 14:26) diarrhea midazolam [From Versed] Adverse Reaction (Severe, Verified 11/10/23 14:26) bradycardia Medication List - Last Reconciled 11/10/23 by ROHITH Wadsworth ascorbic acid (vitamin C) 500 mg PO DAILY blood sugar diagnostic (IceBreaker Ultra Blue Test Strip) Check fasting blood sugar daily at varied time blood-glucose meter As directed- poc daily at varied time cholecalciferol (vitamin D3) (Vitamin D3) 10 mcg PO DAILY lancets (BEST Athlete ManagementTouch Delica Lancets) Check blood sugar daily at varied time lutein 20 mg PO DAILY magnesium citrate 125 mg PO BEDTIME metformin 500 mg PO TID metoprolol succinate ER 12.5 mg (1/2 x 25 mg) PO DAILY db-xak-umirp-calcium carb-K1 400 mcg-500 mg calcium-20 mcg (Women's 50 Plus Multivitamin) 1 tab PO DAILY HPI HPI 3 month f/u: Details: Parisa is a 78-year-old female with past medical history of being underweight, diabetes, emphysema, runs of SVT. She was started on low-dose metoprolol for heart rate control and reported a drop in her oxygen levels. On last visit she was changed to diltiazem. She was then seen in the emergency room for SVT and was treated with low-dose Lopressor with conversion to sinus rhythm. She was taken off diltiazem and put back on metoprolol. Her troponin was mildly elevated. Today she reports that she has been doing well since her hospital discharge. She has not noticed heart palpitations or elevated heart rates. She is taking the metoprolol as directed. At this time she is no longer reporting a drop in her oxygen saturations with metoprolol like she had in the past. She tells me that her breathing is chronically short with physical activity. When she is at rest her breathing is comfortable. She is wearing her oxygen continually. She denies having any chest discomfort at rest or with activity. Even the day of her recent ER evaluation she did not have chest discomfort. No lightheadedness, presyncope, syncope, falls. No PND, orthopnea or edema. She tells me she checks her oxygen with a sat monitor several times a day. Her lowest readings recently have been in the 80s. Taking meds as directed. [facility] Medical History Hypotension Hypotension Tachycardia Diabetes Sepsis Pneumonia Acute sinusitis Hypoxemia Pulmonary emphysema Pneumothorax Diabetes mellitus with microalbuminuria, without long-term current use of insulin Vaccination refused by patient Underweight Intermittent palpitations Diabetes mellitus with hyperglycemia, without long-term current use of insulin Hx of fracture of wrist H/O fracture of wrist Surgical History H/O wrist surgery History of femoral hernia repair Family History Father Diabetes mellitus Mother Essential hypertension Sister Breast cancer Social History Household Members: Spouse Housing: House Do you presently have visiting nurse or other home services: No Alcohol intake: never Comment: bed alarm is not working. put chair alarm on her Patient Tobacco Use Status: Never used Tobacco e-Cigarette/Vaping Use: Never Used Advance Directives Date on File: 06/16/22 service: No Current occupational status: retired Cognitive needs: No Hearing needs: No Vision needs: No Review of Systems Const All systems reviewed & are unremarkable except as noted in HPI and below ENT Denies dizziness Card Denies chest pain, Denies chest pain at rest, Denies chest pain with activity, Denies rapid heart rate, Denies pedal edema, Denies edema, Denies leg edema, Denies lightheadedness, Denies palpitations, Reports dyspnea, Reports dyspnea on exertion and Denies orthopnea Resp Denies cough, Reports dyspnea and Reports dyspnea on exertion GI Denies hematochezia and Denies change in stool character Musc Denies abnormal gait, Denies limited range of motion, Denies muscle cramps, Denies muscle weakness, Denies numbness, Denies radiating pain into limb, Denies stiffness and Denies tingling Neuro Denies abnormal gait, Denies dizziness, Denies numbness and Denies tingling Endo Denies palpitations Physical Exam Vital Signs: Last Vital Signs Pulse 101 H 11/10/23 14:24 BP 94/62 11/10/23 14:24 BMI result Body Mass Index 13.4 Const Other: thin, frail elderly female General: comfortable and no acute distress Orientation/consciousness: patient oriented x3 Neck Neck: Yes normal visual inspection Resp Effort & Inspection: normal respiratory effort Auscultation: clear to auscultation bilaterally, no rales, no rhonchi and no wheezes Cardio Jugular venous distension: no JVD Rate: regular rate Rhythm: regular rhythm Heart sounds: S1 normal heart sound present, S2 normal heart sound present, no murmurs and no rubs Neuro General: patient oriented x3 Extrem General: Yes normal to inspection and No no pedal edema Psych Mental Status: mental status grossly normal Speech and movement: Normal speech and movement present Assessment & Plan Assessment & Plan (1) Palpitations: Code(s): R00.2 - Palpitations Category: Medical Plan: Patient Reported of heart palpitations. She wore a Holter monitor 06/02/2023 for 14 days showed sinus rhythm with average heart rate 90, 24 episodes of SVT, fastest 195 beats per minute and longest 24 beats. Patient is report of palpitations did correlate with SVT. Echocardiogram done 06/02/2023 showed EF 62%, normal valves, mild pulmonary hypertension. She was then started on low- dose metoprolol. On last visit she reported a drop in her oxygen saturation with metoprolol use. She was put on diltiazem low dose 30 mg b.i.d.. Then on follow-up with she was noted to have very elevated heart rate. She was sent to the emergency room for evaluation with EKG showing SVT. She was treated with Lopressor 2.5 mg IV with conversion to sinus rhythm. She was taken off the diltiazem and put back on metoprolol XL 12.5 mg daily. Since that time she has not had recurrent rapid heart rates. She has no longer reporting low sats with metoprolol use. Her blood pressure is low. Unable to further titrate metoprolol. She does have a known history of emphysema and wears oxygen most of the time. Reviewed the need to cut out all caffeine, dark chocolate. Spent time reviewing vagal maneuvers with her in detail. Emergency care if needed for sustained rapid heart palpitations. Cardiology follow-up in 6 months, sooner if needed. (2) Supraventricular tachycardia: Code(s): I47.10 - Supraventricular tachycardia, unspecified Category: Medical Plan: As above (3) Hospital discharge follow-up: Code(s): Z09 - Encounter for follow-up examination after completed treatment for conditions other than malignant neoplasm Category: Medical Plan: As above. Troponin was elevated at last ER visit, peak 79.3. She has no reports of chest discomfort. She does have chronic shortness of breath from emphysema. Her elevated troponin was likely related to the elevated heart rates from SVT. Discussed obtaining a nuclear stress test on her and she declines. She says she is not interested and it would make her too nervous. Signs and symptoms of angina reviewed. Plan Time spent on chart review, documentation, interview, assessment Coding Level of Care Code Est Pt Level 4 (71611) Diagnoses Palpitations R00.2 Supraventricular tachycardia I47.10 Hospital discharge follow-up Z09 Time Spent (min) 30
[2023-11-10 14:24] VITALS: BP 94/62; PULSE 101; BMI 13.4
== END 2023-11-10 15:07 | disposition home or self-care (01) ==
LOC: HO.HCS 14:19
PROVIDERS: PCP Nurse Practitioner Family; Visit Provider Nurse Practitioner Family
DX: R00.2 Palpitations (principal); I47.10 Supraventricular tachycardia, unspecified; Z09 Encounter for follow-up examination after completed treatment for conditions other than malignant neoplasm
CPT/HCPCS: 99214

== ENCOUNTER → 2023-11-10 14:19 | Outpatient (BNVA) | payer MEDICARE, SELFPAY | PROVIDERS: PCP Nurse Practitioner Family; Visit Provider Nurse Practitioner Family | DX: Z09 Encounter for follow-up examination after completed treatment for conditions other than malignant neoplasm (principal); R00.2 Palpitations; I47.10 Supraventricular tachycardia, unspecified | CPT/HCPCS: 99212 ==

== ENCOUNTER 2024-01-13 13:26 | Inpatient (IN) | payer MEDICARE, SELFPAY ==
[2024-01-13] VITALS (7 sets, daily range): BP systolic 83–125; BP diastolic 50–73; PULSE 66–166; RESP 18–26; TEMP 36.2–36.4; O2SAT 90–100; BMI 13.7
--- NOTE | ~2024-01-13 | CT_ITS ---
EXAMINATION: CT HEAD WITHOUT CONTRAST, CT CERVICAL SPINE WITHOUT CONTRAST CLINICAL INFORMATION: Injury. Pain COMPARISON: None. TECHNIQUE: Multidetector CT examination of the head is performed without contrast. Multidetector CT of the cervical spine without contrast. Multiplanar postprocessing This CT examination was performed using dose optimization techniques as appropriate, variously including the following: *Automated exposure control *Adjustment of mA and/or kV according to patient size (this includes techniques or standardized protocols for targeted exams where dose is matched to indication/reason for exam; i.e. extremities or head) *Use of iterative reconstruction technique DLP: 767 mGy-cm FINDINGS: Head CT: There is no evidence of a recent intracranial hemorrhage or extra-axial collection. The midline structures are nondisplaced. The ventricles, cisterns, and sulci are within normal limits. There is no evidence of an intra-axial mass. There are no suspicious focal areas of abnormal brain attenuation. The al-white interface is within normal limits. There is no evidence of acute territorial infarct. The paranasal sinuses and mastoids are within normal limits. No fracture demonstrated. There is extensive arterial calcification Cervical CT: No acute fracture or subluxation. No focal lesion or loss of volume. There is moderate narrowing of the C5/C6 disc. There is ankylosis of the posterior elements at C3 and C4 bilaterally. There are disc osteophyte complexes greatest at L4/C5 and C5/C6. There is some foraminal narrowing. There are some pleural and parenchymal opacities in the visualized apex of the chest which likely represent fibrocalcific postinflammatory changes. CT/CT cervical spine wo IV con IMPRESSION: 1. There is no evidence of a recent intracranial hemorrhage. 2. No acute infarct. 3. No acute fracture or subluxation of the cervical spine There are degenerative changes in the cervical spine and there are some opacities in the apex of the chest which are likely postinflammatory
--- NOTE | ~2024-01-13 | XR_ITS ---
EXAMINATION: XR HIP, LEFT CLINICAL INFORMATION: Pain. Injury. COMPARISON: 06/24/2017 TECHNIQUE: AP view the pelvis and AP and frog-leg lateral views of the left hip. FINDINGS: Comminuted varus impacted intertrochanteric fracture of the left proximal femur. Bones are osteopenic. Femoral head remains appropriately situated at the acetabulum. 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 Osseous pelvis otherwise appears intact. XR/XR hip LT w PEL1V IMPRESSION: Comminuted varus impacted intertrochanteric fracture of the left proximal femur.
--- NOTE | ~2024-01-13 | XR_ITS ---
EXAMINATION: XR CHEST CLINICAL INFORMATION: Preoperative chest x-ray COMPARISON: 09/21/2023 TECHNIQUE: Frontal view of the chest was obtained. FINDINGS: Lungs are hyperexpanded with chronic foci of peripheral pleural scarring. No consolidation, pneumothorax, or pleural effusion. Cardiac and mediastinal contours are normal. Pulmonary vasculature is unremarkable. Bones are osteopenic. No acute osseous findings. XR/XR chest 1V IMPRESSION: No acute pulmonary disease.
--- NOTE | ~2024-01-13 | XR_ITS ---
EXAMINATION: XR KNEE, LEFT CLINICAL INFORMATION: Left knee pain. Injury. COMPARISON: None available. TECHNIQUE: Three views of the left knee. FINDINGS: Bones are osteopenic. No fracture or malalignment. Joint spaces are well-preserved. Soft tissues are unremarkable. Atherosclerotic calcifications are noted. XR/XR knee LT 3V IMPRESSION: 1. No acute fracture or malalignment. 2. Osteopenia.
--- NOTE | 2024-01-13 13:34 | ED_ITS ---
HPI - General Adult General Chief complaint: Extremity Injury, Lower Stated complaint: L HIP DISLOCATION PER EMS Time Seen by Provider: 01/13/24 13:33 Source: patient and EMS Mode of arrival: EMS Limitations: no limitations History of Present Illness ED Provider: Danyell Helms PA-C HPI narrative: Patient is a 78 year old assigned female at with a history of hypotension, SVT on metoprolol, and DM, presenting to the emergency department today after a fall. Patient states that she fell down onto her toilet seat and is now having left sided hip pain and deformity. Patient denies any dizziness, lightheadedness, abdominal pain, nausea, vomiting, fever, chills, blurry vision, double vision, loss of vision, chest pain, difficulty breathing, shortness of breath, back pain, night sweats, pain with urination, increased urinary frequency, increased urinary urgency, blood in her urine or stool, syncope or a near syncopal episode, recent trauma or falls, bowel incontinence, bladder incontinence, or any other complaints at this time. Location: pelvis and left Relieving factors: none Exacerbating factors: none Related Data Home Medications ?Medication ?Instructions ?Recorded ?Confirmed ascorbic acid (vitamin C) 500 mg 500 mg PO DAILY 05/26/20 11/10/23 capsule lutein 20 mg capsule 20 mg PO DAILY 05/26/20 11/10/23 magnesium citrate 125 mg capsule 125 mg PO BEDTIME 05/26/20 11/10/23 sedikyeq-xku-ivnsj ac 400 1 tab PO DAILY 05/26/20 11/10/23 mcg-calcium carb 500 mg-vit K1 20 mcg tablet (Women's 50 Plus Multivitamin) cholecalciferol (vitamin D3) 10 10 mcg PO DAILY 07/11/22 11/10/23 mcg (400 unit) tablet (Vitamin D3) metformin 500 mg tablet 500 mg PO TID 11/10/23 11/10/23 Previous Rx's ?Medication ?Instructions ?Recorded blood sugar diagnostic (Done In :60 SecondsTouch #100 ea 07/08/20 Ultra Blue Test Strip) blood-glucose meter #1 ea 07/08/20 lancets 33 gauge (OneTouch Delica #100 ea 07/08/20 Lancets) metoprolol succinate 25 mg 12.5 mg (1/2 x 25 mg) PO DAILY #45 10/31/23 tablet,extended release 24 hr tabs Allergies Allergy/AdvReac Type Severity Reaction Status Date / Time sulfa Allergy Unknown diarrhea Verified 01/13/24 13:41 midazolam [From Versed] AdvReac Severe bradycardia Verified 01/13/24 13:41 Review of Systems 2 Constitutional: Constitutional: Reports no additional constitutional complaints, Denies chills, Denies fever(s) and Denies night sweats Eyes: Eyes: Reports no additional eye complaints, Denies blurry vision, Denies change in vision, Denies diplopia, Denies eye discharge, Denies loss of vision and Denies eye pain ENT: Denies dizziness Cardiovascular: Cardiovascular: Reports no additional cardiovascular complaints, Denies chest pain, Denies lightheadedness, Denies Loss of Consciousness and Denies dyspnea Respiratory: Respiratory: Reports no additional respiratory complaints and Denies dyspnea Gastrointestinal: Gastrointestinal: Reports no additional gastrointestinal complaints, Denies abdominal pain, Denies melena, Denies hematochezia, Denies change in bowel habits and Denies change in stool character Genitourinary: Genitourinary: Denies hematuria, Denies urinary frequency, Denies dysuria, Denies urinary incontinence, Denies urinary hesitancy and Denies urinary urgency Musculoskeletal: Musculoskeletal: Reports no additional musculoskeletal complaints, Denies numbness and Denies tingling Comments: left hip pain Neurologic: Denies dizziness, Denies loss of vision, Denies numbness and Denies tingling Psychiatric: Psychiatric: Reports no additional psychiatric complaints Endocrine: Endocrine: Reports no additional endocrine complaints Hematologic/Lymphatic: Hematologic/Lymphatic: Reports no additional hematologic/lymphatic complaints Allergic/Immunologic: Allergic/Immunologic: Reports no additional allergic/immunologic complaints [facility] Past Medical History Attestation statement: The following information was validated with the patient. Source: old records reviewed and nursing notes reviewed Medical History Hypotension Hypotension Tachycardia Diabetes Sepsis Pneumonia Acute sinusitis Hypoxemia Pulmonary emphysema Pneumothorax Diabetes mellitus with microalbuminuria, without long-term current use of insulin Vaccination refused by patient Underweight Intermittent palpitations Diabetes mellitus with hyperglycemia, without long-term current use of insulin Hx of fracture of wrist H/O fracture of wrist Surgical History H/O wrist surgery History of femoral hernia repair Family History Family History Father Diabetes mellitus Mother Essential hypertension Sister Breast cancer Social History Social History Household Members: Spouse Housing: House Do you presently have visiting nurse or other home services: No Alcohol intake: never Comment: bed alarm is not working. put chair alarm on her Patient Tobacco Use Status: Never used Tobacco Smoked in Last 30 Days: No e-Cigarette/Vaping Use: Never Used Use of substances other than those prescribed or required for medical reasons: No Advance Directives: Yes Advance Directives on File: Yes Advance Directives Date on File: 06/16/22 Do you have a plan to hurt others: No Plan service: No Current occupational status: retired Cognitive needs: No Hearing needs: No Vision needs: No Physical Exam ED Vital Signs: Vital Signs - 24 hr 01/13/24 13:38 01/13/24 14:31 01/13/24 15:15 Temperature 97.6 F Pulse Rate 166 H 150 H 147 H Respiratory Rate 20 18 26 H Blood Pressure 83/50 L 93/62 84/60 L Pulse Oximetry 93 96 99 Oxygen Delivery Method Nasal Cannula Nasal Cannula Nasal Cannula Oxygen Flow Rate 2 2 BMI result Body Mass Index 13.7 Const General: cooperative, no acute distress, alert and awake Nutritional Appearance: well nourished Orientation/consciousness: patient oriented x3 Limitations: no limitations HENMT Head: Yes normal to inspection and Yes atraumatic Ears: hearing grossly normal bilaterally and external ears normal General nose exam: Normal external nose present, no nasal discharge noted and no epistaxis Face and sinus: Yes normal facial exam, No abrasion and No laceration Mouth: Normal oral and palatal mucosa present, no drooling and no muffled voice Eyes General: appearance normal, both eyes and all related structures Periorbital: periorbital findings normal Eyelids: Yes eyelids normal Conjunctivae: conjunctivae normal Pupils: Equal, round and reactive pupils present EOM: EOMs intact bilaterally Neck Neck: Yes normal visual inspection, Yes full ROM and Yes no lymphadenopathy Chest Chest palpation & inspection: normal inspection of the chest Resp Effort & Inspection: normal respiratory effort and able to speak in complete sentences Cardio Rate: tachycardic Rhythm: regular rhythm GI Inspection: Yes normal to inspection Neuro General: patient oriented x3 and moves all extremities Cranial nerves: Yes Equal, round and reactive pupils present Cognition (Neuro): normal cognition Extrem Other: left leg is shortened and externally rotated small abrasion to the left knee - no active bleeding General: Yes full ROM and Yes capillary refill normal Psych Appearance: grossly normal Mental Status: mental status grossly normal Affect: normal affect Attitude: cooperative Thought process: Normal thought process present Thought content: Normal thought content present Insight: Good insight present (Psych) Medications Administered Discontinued Medications Generic Name Dose Route Start Last Admin Trade Name Trish PRN Reason Stop Dose Admin Sodium Chloride 1,000 mls @ 999 mls/hr 01/13/24 13:45 01/13/24 14:49 Ns IV 01/13/24 14:45 Infused .Q1H1M MARBELLA Infusion Metoprolol Tartrate 2.5 mg 01/13/24 13:48 01/13/24 14:36 Metoprolol Tartrate 5 Mg/5 Ml Vial IVPUSH 01/13/24 13:49 2.5 mg ONCE ONE Administration Protocol Metoprolol Tartrate 2.5 mg 01/13/24 14:57 01/13/24 15:17 Metoprolol Tartrate 5 Mg/5 Ml Vial IVPUSH 01/13/24 14:58 2.5 mg ONCE ONE Administration Protocol Medical Decision Making Medical Decision Making MDM Narrative: Patient is a 78 year old assigned female at with a history of hypotension, SVT on metoprolol, and DM presenting to the emergency department today with left hip pain. Patient's physical exam showed an external rotated and shortened left leg as well as tachycardia. Patient's blood work is pending. Patient's EKG showed SVT. Patient's left knee x-ray showed no acute process. Patient's chest x-ray is pending. Patient's CT head and c-spine are pending. Patient's left hip x-ray radiology interpretation is pending however, when I reviewed the imaging - it is obviously broken. Patient received a total of 5mg of lopressor which has adequately decreased her heart rate to the normal range. I spoke to the orthopedic team who recommended medical admission and NPO after midnight tonight for probable surgery tomorrow. I spoke to the hospitalist team and at this time - they have declined admission stating that the patient's heart rate needs to remain within normal range with a systolic blood pressure >90 for 2 hours. I explained my physical exam findings as well as all test results to the patient. I answered all questions asked by the patient. Patient signed out to evening [facility] pending labs, imaging results, and hospitalist criteria being met for admission. Differential Diagnosis Differential Diagnoses: The differential diagnosis associated with the presentation includes Left hip fracture Fall SVT Hypotension Admission/Observation Consideration of admission/observation: Escalation of care including admission/observation considered Patient will be admitted after she maintains a heart rate in the normal range and a systolic blood pressure >90 for longer than 2 hours. Consult Healthcare Provider Management of the patient was discussed with: Hospitalist (as noted in the MDM Rationale portion of this note.) and Machine Setter [employer] (spoke to the orthopedic provider as noted in the MDM Rationale portion of this note.) Lab Data 01/13/24 15:54 01/13/24 15:54 Independent Interpretation I performed an independent interpretation of an: Plain X-Ray Interpretation: My interpretation is in agreement with the radiologist's impression of this imaging study. - EXAMINATION: XR KNEE, LEFT CLINICAL INFORMATION: Left knee pain. Injury. COMPARISON: None available. TECHNIQUE: Three views of the left knee. FINDINGS: Bones are osteopenic. No fracture or malalignment. Joint spaces are well-preserved. Soft tissues are unremarkable. Atherosclerotic calcifications are noted. XR/XR knee LT 3V IMPRESSION: 1. No acute fracture or malalignment. 2. Osteopenia. Dictated By: Rashi Pruitt MD Signed By: Electronically signed by Rashi Pruitt MD 01/13/24 1414 - Vent. Rate: 167 BPM Atrial Rate: 000 BPM P-R Int: 000 ms QRS Dur: 100 ms QT Int: 276 ms P-R-T Axes: 000 071 -10 degrees QTc Int: 460 ms Supraventricular tachycardia Incomplete right bundle branch block Nonspecific ST abnormality Abnormal QRS-T angle, consider primary T wave abnormality Abnormal ECG When compared with ECG of 21-SEP-2023 11:46, Vent. rate has increased BY 84 BPM Incomplete right bundle branch block is now Present DD/ 1337 Radiology Impression Discussion of test interpretation with radiology: I have reviewed the radiologist's reading. Independent Historian Clinical information obtained from an independent historian. History obtained from or confirmed by: EMS (EMS provided additional history and confirmed the history provided by the patient. ) Critical Care Time Critical Care Time Critical Care Time: Yes Total Critical Care Time: 38 Attestation: I spent 38 minutes of Critical Care Time with this patient. This does not include time spent on separately reported billable procedures. Discharge Plan Discharge Clinical Impression: Closed hip fracture, SVT (supraventricular tachycardia), Fall, Chronic hypotension Patient Disposition: Still a Patient Prescriptions: No Action metoprolol succinate 25 mg tablet extended release 24 hr 12.5 mg PO DAILY Qty: 45 1RF cholecalciferol (vitamin D3) [Vitamin D3] 10 mcg (400 unit) Tablet 10 mcg PO DAILY Women's 50 Plus Multivitamin 400 mcg-500 mg calcium-20 mcg tablet 1 tab PO DAILY magnesium citrate 125 mg capsule 125 mg PO BEDTIME lutein 20 mg capsule 20 mg PO DAILY Rx Instructions: give with meal/snack ascorbic acid (vitamin C) 500 mg capsule 500 mg PO DAILY (DME) Techoz Ultra Blue Test Strip Strip See Rx Instructions .ROUTE .MEDSUPPLY Qty: 100 5RF Rx Instructions: Check fasting blood sugar daily at varied time (DME) blood-glucose meter Kit See Rx Instructions .ROUTE .MEDSUPPLY Qty: 1 0RF Rx Instructions: As directed- poc daily at varied time (DME) lancets [OneTouch Delica Lancets] 33 gauge misc See Rx Instructions .ROUTE .MEDSUPPLY Qty: 100 4RF Rx Instructions: Check blood sugar daily at varied time metformin 500 mg tablet 500 mg PO TID Print Language: French
--- NOTE | 2024-01-13 13:35 | ECG_ITS ---
Test Reason : tachycardia Blood Pressure : / mmHG Vent. Rate : 167 BPM Atrial Rate : 000 BPM P-R Int : 000 ms QRS Dur : 100 ms QT Int : 276 ms P-R-T Axes : 000 071 -10 degrees QTc Int : 460 ms Supraventricular tachycardia Incomplete right bundle branch block Nonspecific ST abnormality Abnormal QRS-T angle, consider primary T wave abnormality Abnormal ECG When compared with ECG of 21-SEP-2023 11:46, Vent. rate has increased BY 84 BPM Incomplete right bundle branch block is now Present Referred By: Danyell Helms Electronically Signed By:SANJAY HARVEY MD
[2024-01-13] MEDS: 0.9 % Sodium Chloride 1,000 ML 999 ML IV ×2 (13:46→18:05)
[2024-01-13] MEDS: Metoprolol Tartrate 5 MG/5 ML VIAL 2.5 MG IVPUSH ×2 (14:36→15:17)
--- NOTE | 2024-01-13 15:17 | PC.NURSE ---
per Danyell INGRAM ok to give lopressor with BP soft d/t HR 147
--- NOTE | 2024-01-13 15:57 | ECG_ITS ---
Test Reason : RODRISA Blood Pressure : / mmHG Vent. Rate : 069 BPM Atrial Rate : 069 BPM P-R Int : 140 ms QRS Dur : 070 ms QT Int : 408 ms P-R-T Axes : 076 077 076 degrees QTc Int : 437 ms Normal sinus rhythm Possible Left atrial enlargement Nonspecific T wave abnormality Abnormal ECG When compared with ECG of 13-JAN-2024 13:37, Normal sinus rhythm has replaced Supraventricular tachycardia Vent. rate has decreased BY 98 BPM Incomplete right bundle branch block is no longer Present Nonspecific T wave abnormality, worse in Anterior leads Referred By: Danyell Helms Electronically Signed By:SANJAY HARVEY MD
[2024-01-13 15:59] LABS: Basophils Percent Auto 0.2 % (0-2); Eosinophils Percent Auto 0.1 % (0-4); Hematocrit 34.4 % (37.0-47.0); Hemoglobin 11.1 g/dl (12.0-16.0); Imm Gran Abs Auto 0.06 X10*3/uL (0.00-0.03); Imm Gran Pct Auto 0.5 % (0.0-0.4); Lymphocytes Absolute Auto 0.5 X10*3/uL (1.2-4.9); Lymphocytes Percent Auto 4.1 % (20-40); MANUAL DIFF FLAG SCAN; Mean Corpuscular HGB Conc 32.3 g/dl (31.0-35.0); Mean Corpuscular Hemoglobin 30.5 pg (27.0-33.0); Mean Corpuscular Volume 94.5 fL (80.0-98.0); Mean Platelet Volume 9.7 fL (9.4-12.3); Monocytes Absolute Auto 0.6 X10*3/uL (0.1-1.2); Monocytes Percent Auto 4.4 % (2-11); Neutrophils Absolute Auto 11.7 x10*3/uL (2.0-8.3); Neutrophils Percent Auto 90.7 % (45-73); Platelet Count 176 X10*3/uL (160-400); Red Blood Count 3.64 X10*6/uL (4.20-5.50); Red Cell Distribution Width 16.2 % (11.0-16.0); SCAN SMEAR FLAG 1; White Blood Count 12.9 X10*3/uL (4.8-10.8)
--- NOTE | 2024-01-13 16:04 | P.CONOP_ITS ---
History of Present Illness HPI Consult date: 01/13/24 Chief complaint: L HIP DISLOCATION PER EMS Narrative: Patient is a 78-year-old female past medical history significant for paroxysmal SVT and diabetes mellitus who presents to the emergency department for evaluation of left hip pain. Patient reports that, early this morning, she sat on her toilet to attempt to use the bathroom, and she felt a discomfort in her left hip and was unable to use her left leg. The patient reports that she asked her to help her off of the toilet and to sit her in the chair in her living room, and the ambulance was called approximately 1 hour later at approximately 08:00. Since then, the patient reports that she has been experiencing significant pain in her left hip. Patient has been nonweightbearing since presentation to the emergency department. X-rays taken in the ED revealed a displaced left intertrochanteric hip fracture. Patient reports that her pain is fairly well controlled at this time, but that she experiences severe episodes of a stabbing pain whenever she attempts to have any motion of her left leg. No other acute complaints or concerns at this time. [facility] Past Medical History Medical History Hypotension Hypotension Tachycardia Diabetes Sepsis Pneumonia Acute sinusitis Hypoxemia Pulmonary emphysema Pneumothorax Diabetes mellitus with microalbuminuria, without long-term current use of insulin Vaccination refused by patient Underweight Intermittent palpitations Diabetes mellitus with hyperglycemia, without long-term current use of insulin Hx of fracture of wrist H/O fracture of wrist Family History Family History Father Diabetes mellitus Mother Essential hypertension Sister Breast cancer Surgical History Surgical History H/O wrist surgery History of femoral hernia repair Social History Social History Household Members: Spouse Housing: House Do you presently have visiting nurse or other home services: No Alcohol intake: never Comment: bed alarm is not working. put chair alarm on her Patient Tobacco Use Status: Never used Tobacco Smoked in Last 30 Days: No e-Cigarette/Vaping Use: Never Used Use of substances other than those prescribed or required for medical reasons: No Advance Directives: Yes Advance Directives on File: Yes Advance Directives Date on File: 06/16/22 Do you have a plan to hurt others: No Plan service: No Current occupational status: retired Cognitive needs: No Hearing needs: No Vision needs: No Meds Allergies Allergy/AdvReac Type Severity Reaction Status Date / Time sulfa Allergy Unknown diarrhea Verified 01/13/24 13:41 midazolam [From Versed] AdvReac Severe bradycardia Verified 01/13/24 13:41 Home Medications ?Medication ?Instructions ?Recorded ?Confirmed ?Last Taken ?Type ascorbic acid (vitamin C) 500 mg 500 mg PO DAILY 05/26/20 11/10/23 08/31/23 History capsule lutein 20 mg capsule 20 mg PO DAILY 05/26/20 11/10/23 08/31/23 History magnesium citrate 125 mg capsule 125 mg PO BEDTIME 05/26/20 11/10/23 Unknown History oxhvlgnw-plh-bpbpl ac 400 1 tab PO DAILY 05/26/20 11/10/23 08/31/23 History mcg-calcium carb 500 mg-vit K1 20 mcg tablet (Women's 50 Plus Multivitamin) cholecalciferol (vitamin D3) 10 10 mcg PO DAILY 07/11/22 11/10/23 08/31/23 History mcg (400 unit) tablet (Vitamin D3) metformin 500 mg tablet 500 mg PO TID 11/10/23 11/10/23 Unknown History Physical Exam 2 Vital Signs: Vital Signs: Last Vital Signs Temp 97.6 F 01/13/24 13:38 Pulse 147 H 01/13/24 15:15 Resp 26 H 01/13/24 15:15 BP 84/60 L 01/13/24 15:15 Pulse Ox 99 01/13/24 15:15 O2 Del Method Nasal Cannula 01/13/24 15:15 O2 Flow Rate 2 01/13/24 15:15 Oxygen Flow Rate 2 01/13/24 13:38 BMI result Body Mass Index 13.7 Extrem: Other: On inspection, the left leg is noted to be externally rotated and shortened There is a significant area of edema on the anterior aspect of the left hip, as well as a visible and palpable deformity on the lateral aspect of the left hip No lacerations or abrasions noted No erythema or evidence of infection Patient is tender to very gentle palpation of the left hip Nontender to palpation distal left lower extremity Patient is able to flex and extend the toes of the left foot Able to plantar flex and dorsiflex the left foot Distal sensation slightly diminished, but patient reports that this is baseline due to her diabetes Pedal pulses intact Capillary refill brisk Results Labs 01/13/24 15:54 01/13/24 15:54 Labs: Abnormal lab results 01/13/24 Range/Units 15:54 WBC 12.9 H (4.8-10.8) X10*3/uL RBC 3.64 L (4.20-5.50) X10*6/uL Hgb 11.1 L (12.0-16.0) g/dl Hct 34.4 L (37.0-47.0) % RDW 16.2 H (11.0-16.0) % Immature Gran % (Auto) 0.5 H (0.0-0.4) % Neut % (Auto) 90.7 H (45-73) % Lymph % (Auto) 4.1 L (20-40) % Lymph # (Auto) 0.5 L (1.2-4.9) X10*3/uL Abs Immat Gran (auto) 0.06 H (0.00-0.03) X10*3/uL Absolute Neuts (auto) 11.7 H (2.0-8.3) x10*3/uL H & H 01/13/24 Range/Units 15:54 Hgb 11.1 L (12.0-16.0) g/dl Hct 34.4 L (37.0-47.0) % All other labs normal. Diagnostic results Hip x-ray: report reviewed and image reviewed (X-rays obtained in the emergency department today and independently reviewed by me, Kenny Barr PA-C, demonstrate displaced intertrochanteric fracture of the left hip with shortening. ) Assessment and Plan (1) Closed intertrochanteric fracture of left hip: Qualifiers: Encounter type: initial encounter Fracture alignment: displaced Q ualified Code(s): S72.142A - Displaced intertrochanteric fracture of left femur, initial encounter for closed fracture Status: Acute Plan 1. Displaced Intertrochanteric fracture of left hip Date of injury 01/13/2024 Patient was discussed with Dr. Tay, and a collaborative treatment plan was formed: Patient will be admitted to medicine today Plan is to bring the patient for left IM nail placement tomorrow Risks and benefits of surgery discussed with the patient today Patient is amenable to proceeding with surgery Patient is advised to remain totally nonweightbearing until after surgery NPO at midnight for surgery tomorrow Continue with all other recommendations per Medicine upon admission Procedures Date of Service Date of Service: 01/13/24
[2024-01-13 16:34] LABS: Alanine Aminotransferase 39 U/L (0-31); Albumin Level 3.3 g/dL (3.5-5.0); Alkaline Phosphatase 64 U/L (39-117); Anion Gap 17 (12-20); Aspartate Amino Transferase 47 U/L (5-31); Bilirubin Total 0.5 mg/dL (0.0-1.0); Blood Urea Nitrogen 38 mg/dL (9-16); Calcium 9.3 mg/dL (8.4-10.2); Carbon Dioxide 24 mmol/L (22-29); Chloride 104 mmol/L (96-108); Creatinine Clr Calc Pharmacy 19.7; Estimated Glomerular Filt Rate 38; Glucose Random 358 mg/dL (60-115); Magnesium 1.9 mg/dL (1.6-2.6); Potassium 4.8 mmol/L (3.3-5.1); Sodium 140 mmol/L (135-145); Total Protein 6.6 g/dL (6.5-8.0)
[2024-01-13 16:38] LABS: SLIDE REVIEW VERIFIED
--- NOTE | 2024-01-13 17:58 | PM.IMHP ---
History of Present Illness Date of Service: 01/13/24 Attending physician on admission: Noel Sparrow Chief Complaint: left leg pain This is a 78-year-old female who presents to the emergency department with left leg pain. She states that she requested help from her to go to the bathroom overnight. When she went to stand up her left leg gave out on her and she ?had a hard landing? on the toilet seat. Following that she reports having left-sided leg pain and was unable to stand up or ambulate. She denies falling, she denies hitting her head. In the emergency department imaging revealed comminuted varus impacted intertrochanteric fracture of the left proximal femur. She was also noted to be tachycardic and EKG revealed SVT. Patient has history of SVT. She received 2 doses of IV Lopressor and converted back to normal sinus rhythm. Subsequently she reported to have low blood pressure readings. Currently she denies any chest pain, palpitations, shortness of breath. The orthopedic team evaluated the patient while she was in the emergency department and recommend she be admitted to the medical service. Surgical intervention is planned for tomorrow. Review of Systems Review of Systems: Yes all other systems are reviewed and are negative Constitutional: Constitutional: Denies chills and Denies fever(s) ENT: Denies dizziness Cardiovascular: Cardiovascular: Denies chest pain and Denies palpitations Respiratory: Respiratory: Denies cough Gastrointestinal: Gastrointestinal: Denies abdominal pain Neurologic: Denies dizziness Endocrine: Endocrine: Denies palpitations [facility] Medical History Hypotension Hypotension Tachycardia Diabetes Sepsis Pneumonia Acute sinusitis Hypoxemia Pulmonary emphysema Pneumothorax Diabetes mellitus with microalbuminuria, without long-term current use of insulin Vaccination refused by patient Underweight Intermittent palpitations Diabetes mellitus with hyperglycemia, without long-term current use of insulin Hx of fracture of wrist H/O fracture of wrist Family History Father Diabetes mellitus Mother Essential hypertension Sister Breast cancer Surgical History H/O wrist surgery History of femoral hernia repair Social History Household Members: Spouse Housing: House Do you presently have visiting nurse or other home services: No Alcohol intake: never Comment: bed alarm is not working. put chair alarm on her Patient Tobacco Use Status: Never used Tobacco Smoked in Last 30 Days: No e-Cigarette/Vaping Use: Never Used Use of substances other than those prescribed or required for medical reasons: No Advance Directives: Yes Advance Directives on File: Yes Advance Directives Date on File: 06/16/22 Do you have a plan to hurt others: No Plan service: No Current occupational status: retired Cognitive needs: No Hearing needs: No Vision needs: No Meds Allergies Allergy/AdvReac Type Severity Reaction Status Date / Time sulfa Allergy Unknown diarrhea Verified 01/13/24 13:41 midazolam [From Versed] AdvReac Severe bradycardia Verified 01/13/24 13:41 Active Medications: Current Medications Acetaminophen (Acetaminophen 325 Mg Tablet) 650 mg PO Q6H PRN PRN Reason: Pain, Mild (Pain Scale 1-3), fever or headache Docusate Sodium (Docusate Sodium 100 Mg Capsule) 100 mg PO BID [facility], [facility]1983 Glucose (Glucose Gel 15 Gm Gel..Gram.) 15 gm PO Q15M PRN; Protocol PRN Reason: per Hypoglycemia Standing Ord. Sodium Chloride (Ns) 1,000 mls @ 999 mls/hr IV .Q1H1M [facility], 1928–1983 Stop: 01/13/24 18:00 Dextrose (D10) 250 mls @ 750 mls/hr IV Q15M PRN; Protocol PRN Reason: per Hypoglycemia Standing Ord. Insulin Human Lispro (Insulin Lispro 100 Unit/Ml 3 Ml Vial) 0 unit SUBCUT QIDACHS [facility]LY [facility], 1928–1983; Protocol Magnesium Hydroxide (Milk Of Magnesia 30 Ml Oral.Susp) 30 ml PO DAILY PRN PRN Reason: Constipation Melatonin (Melatonin 3 Mg Tablet) 6 mg PO BEDTIME PRN PRN Reason: Insomnia Oxycodone HCl (Oxycodone Hcl Immed Release 5 Mg Tablet) 5 mg PO Q6H PRN PRN Reason: Pain, Severe (Pain Scale 7-10) Polyethylene Glycol (Polyethylene Glycol 3350 17 Gm Powd.Pack) 17 gm PO DAILY PRN PRN Reason: Constipation Sodium Chloride (0.9 % Sodium Chloride Flush 3 Ml Syringe) [facility] Medications ?Medication ?Instructions ?Recorded ?Confirmed ?Last Taken ?Type ascorbic acid (vitamin C) 500 mg 500 mg PO DAILY 05/26/20 11/10/23 08/31/23 History capsule lutein 20 mg capsule 20 mg PO DAILY 05/26/20 11/10/23 08/31/23 History magnesium citrate 125 mg capsule 125 mg PO BEDTIME 05/26/20 11/10/23 Unknown History esbjbsvs-vfy-vcsxm ac 400 1 tab PO DAILY 05/26/20 11/10/23 08/31/23 History mcg-calcium carb 500 mg-vit K1 20 mcg tablet (Women's 50 Plus Multivitamin) cholecalciferol (vitamin D3) 10 10 mcg PO DAILY 07/11/22 11/10/23 08/31/23 History mcg (400 unit) tablet (Vitamin D3) metformin 500 mg tablet 500 mg PO TID 11/10/23 11/10/23 Unknown History Physical Exam Vital Signs and Narrative: Vital Signs: Last Vital Signs Temp 97.1 F 01/13/24 16:00 Pulse 70 01/13/24 16:00 Resp 21 H 01/13/24 16:00 BP 101/67 01/13/24 16:00 Pulse Ox 96 01/13/24 16:00 O2 Del Method Nasal Cannula 01/13/24 16:00 O2 Flow Rate 2 01/13/24 16:00 Oxygen Flow Rate 2 01/13/24 13:38 BMI result Body Mass Index 13.7 Const: General: comfortable, no acute distress, alert and awake Nutritional Appearance: cachectic and thin Orientation/consciousness: patient oriented x3 Resp: Effort & Inspection: normal respiratory effort, able to speak in complete sentences, no respiratory distress and no use of accessory muscles Cardio: Rate: regular rate GI: Inspection: No distended Palpation (GI): Soft to palpation and nontender Neuro: General: patient oriented x3, moves all extremities and CN's II-XI intact bilaterally Extrem: Other: LLE ER and shortened Results Labs 01/13/24 15:54 01/13/24 15:54 Labs: Laboratory Results - last 24 hr 01/13/24 15:54 MCV 94.5 MCH 30.5 MCHC 32.3 RDW 16.2 H Plt Count 176 MPV 9.7 Immature Gran % (Auto) 0.5 H Neut % (Auto) 90.7 H Lymph % (Auto) 4.1 L [place] % (Auto) 4.4 Eos % (Auto) 0.1 Baso % (Auto) 0.2 Lymph # (Auto) 0.5 L [place] # (Auto) 0.6 Eos # (Auto) 0.0 Baso # (Auto) 0.0 Abs Immat Gran (auto) 0.06 H Absolute Neuts (auto) 11.7 H Absolute Nucleated RBC 0.000 Nucleated RBC % (auto) 0.0 Smear Tech's Comments VERIFIED Anion Gap 17 Estim Creat Clear Calc 19.7 Estimated GFR 38 Random Glucose 358 H* Calcium 9.3 Magnesium 1.9 Total Bilirubin 0.5 AST 47 H ALT 39 H Alkaline Phosphatase 64 Total Creatine Kinase 137 Total Protein 6.6 Albumin 3.3 L Imaging Radiologist's Impressions: Impressions Knee X-Ray 01/13/24 14:05 IMPRESSION: 1. No acute fracture or malalignment. 2. Osteopenia. Hip/Pelvis X-Ray 01/13/24 14:26 IMPRESSION: Comminuted varus impacted intertrochanteric fracture of the left proximal femur. Chest X-Ray 01/13/24 14:28 IMPRESSION: No acute pulmonary disease. Assessment and Plan (1) Closed intertrochanteric fracture of left hip: Qualifiers: Encounter type: initial encounter Fracture alignment: displaced Qualified Code(s): S72.142A - Displaced intertrochanteric fracture of left femur, initial encounter for closed fracture Status: Acute (2) SVT (supraventricular tachycardia): Status: Acute Plan This is a 78-year-old female with history of COPD on 2 L home O2, SVT, protein calorie malnutrition, diabetes who came to the emergency department with left leg pain found to have left femur fracture and SVT Left proximal femur fracture Seen by orthopedic service, plan for surgical intervention in a.m. Given probable underlying coronary artery disease, pulmonary disease and poor nutritional status patient likely at moderate to high risk for surgery. However patient will have to remain nonweightbearing/bed-bound without surgical intervention. Cardiology consultation for preoperative evaluation NPO at midnight SVT resolved with IV lopressor Continue low-dose oral metoprolol Diabetes, uncontrolled Hold metformin SSI, POCs, ADA diet Severe protein calorie malnutrition BMI 13 Dietary supplements Chronic respiratory failure due to underlying COPD Currently stable on baseline 2 L of supplemental oxygen No acute exacerbation Elevated cardiac enzymes Likely secondary to demand from NSVT Has previously been elevated in the past Has followed up with Cardiology and was offered stress test however patient has declined as recently as November of this year. No chest pain Hypotension Likely due to SVT and medications. Not due to sepsis Baseline patient has blood pressure on the lower side Chronic normocytic anemia Above transfusion threshold Follow CBC Mild transaminitis No abdominal pain Trend LFTs Med reconciliation pending at the time of admission DVT prophylaxis-mechanical devices as surgical intervention planned in a.m.. Resume chemo prophylaxis when safe from surgical perspective Code status-full code Healthcare proxy Patient will likely require 2 midnight stay in the hospital for surgical intervention due to femur fracture and close perioperative monitoring Quality Stroke Does the patient have a stroke diagnosis?: No VTE Prior VTE?: No VTE Risk Level:: Medical - moderate - high VTE Device Contraindication: N/A - Device Ordered VTE Drug Contraindication: N/A - Med Ordered
[2024-01-13 18:45] LABS: Glucose, Whole Blood 303 mg/dL (60-115)
[2024-01-13 18:51] LABS: Estimated Average Glucose 246 mg/dL; Hemoglobin A1c % 10.2 % (<6.0)
--- NOTE | 2024-01-13 19:54 | PC.NURSE ---
Assumed care of pt. Pt bedding changed and pt made more comfortable. VSS at this time, provider notified for continuation of admission process.
[2024-01-13] MEDS: Albumin Human 25 % 100 ML IV ×2 (20:27→21:47)
--- NOTE | 2024-01-13 20:27 | PC.NURSE ---
Delayed administration for Albumin d/t prior shift
[2024-01-13 21:45] LABS: INTERNATIONAL NORM RATIO 1.1 (0.9-1.1); Prothrombin Time 13.3 SEC (11.1-13.3)
[2024-01-13 21:47] LABS: Partial Thromboplastin Time 29.8 SEC (26.0-36.8)
[2024-01-13 22:28] LABS: Glucose, Whole Blood 351 mg/dL (60-115)
[2024-01-13] MEDS: Insulin Lispro 100 UNIT/ML 3 ML VIAL SUBCUT (22:30)
[2024-01-14] VITALS (12 sets, daily range): BP systolic 102–159; BP diastolic 55–80; PULSE 73–83; RESP 16–20; TEMP 35.9–36.9; O2SAT 91–97
[2024-01-14] MEDS: Acetaminophen 325 MG TABLET 650 MG PO (01:01)
[2024-01-14] MEDS: 0.9 % Sodium Chloride Flush 3 ML SYRINGE IVFLUSH ×4 (01:05→22:06)
[2024-01-14 07:15] LABS: Hematocrit 31.4 % (37.0-47.0); Hemoglobin 10.1 g/dl (12.0-16.0); Mean Corpuscular HGB Conc 32.2 g/dl (31.0-35.0); Mean Corpuscular Hemoglobin 30.9 pg (27.0-33.0); Mean Platelet Volume 10.5 fL (9.4-12.3); Platelet Count 163 X10*3/uL (160-400); Red Blood Count 3.27 X10*6/uL (4.20-5.50); Red Cell Distribution Width 16.4 % (11.0-16.0); White Blood Count 8.6 X10*3/uL (4.8-10.8)
[2024-01-14 07:51] LABS: Alanine Aminotransferase 25 U/L (0-31); Albumin Level 3.8 g/dL (3.5-5.0); Alkaline Phosphatase 49 U/L (39-117); Anion Gap 10 (12-20); Aspartate Amino Transferase 22 U/L (5-31); Bilirubin Direct 0.3 mg/dL (0.0-0.5); Bilirubin Total 0.5 mg/dL (0.0-1.0); Blood Urea Nitrogen 32 mg/dL (9-16); Calcium 9.3 mg/dL (8.4-10.2); Carbon Dioxide 32 mmol/L (22-29); Chloride 105 mmol/L (96-108); Creatinine Clr Calc Pharmacy 30.3; Estimated Glomerular Filt Rate > 60; Glucose Random 173 mg/dL (60-115); Potassium 4.2 mmol/L (3.3-5.1); Sodium 143 mmol/L (135-145); Total Protein 6.5 g/dL (6.5-8.0)
[2024-01-14 08:24] LABS: Glucose, Whole Blood 168 mg/dL (60-115)
[2024-01-14] MEDS: Metoprolol Succinate ER 12.5 MG HALFTAB.ER.24H PO (08:41)
--- NOTE | 2024-01-14 10:14 | PM.PNORT ---
Subjective Subjective Date of Service: 01/14/24 Interval history: Patient is a 78-year-old female who is admitted to the hospital for left intertrochanteric hip fracture. This morning, the patient reports that she is still experiencing pain in her left hip, but that this has not increased from yesterday. Patient inquires why her surgery was not performed at 08:00 as was previously planned yesterday. No other acute complaints or concerns at this time. Physical Exam Vital Signs: Vital Signs: Last Vital Signs Temp 98.0 F 01/14/24 07:08 Pulse 80 01/14/24 07:08 Resp 18 01/14/24 07:08 BP 132/74 01/14/24 07:08 Pulse Ox 91 L 01/14/24 08:49 O2 Del Method Nasal Cannula 01/14/24 08:49 O2 Flow Rate 5 01/14/24 08:49 Oxygen Flow Rate 2 01/13/24 13:38 BMI result Body Mass Index 13.7 Extrem: Other: On inspection, the left leg is noted to be externally rotated and shortened There is a significant area of edema on the anterior aspect of the left hip, as well as a visible and palpable deformity on the lateral aspect of the left hip No lacerations or abrasions noted No erythema or evidence of infection Patient is tender to very gentle palpation of the left hip Nontender to palpation distal left lower extremity Patient is able to flex and extend the toes of the left foot Able to plantar flex and dorsiflex the left foot Distal sensation slightly diminished, but patient reports that this is baseline due to her diabetes Pedal pulses intact Capillary refill brisk Procedures Date of Service Date of Service: 01/14/24 Progress Note: A&P Assessment and plan (1) Closed intertrochanteric fracture of left hip: Status: Acute Plan 1. Displaced, comminuted Left hip intertrochanteric fracture Date of injury 01/13/2024 Patient was discussed with Dr. Tay, and a collaborative treatment plan was formed: Patient is informed that she needed cardiology clearance prior to surgery due to her pre-existing heart conditions Patient is informed that cardiology will be in the hospital later this morning to evaluate her for surgical clearance Patient is amenable to this The patient's is with her in her room this morning, and inquires about what the surgical procedure that would be performed is, how long it might take, and what the typical recovery course Patient and her are educated on her injury, the procedure to be performed if she receives clearance, and the typical recovery course Plan is to await cardiology clearance for surgery, and if patient is cleared for surgery to proceed with left IM nail placement with Dr. Tay later this afternoon Continue with all other recommendations per Medicine and Cardiology Time Spent With Patient Time: Total time managing care of this patient today ____ minutes. Quality Stroke Does the patient have a stroke diagnosis?: No VTE Prior VTE?: No VTE Risk Level:: Medical - moderate - high VTE Device Contraindication: N/A - Device Ordered VTE Drug Contraindication: N/A - Med Ordered
--- NOTE | 2024-01-14 11:25 | P.PNIM_ITS ---
Subjective Subjective Date of Service: 01/14/24 Interval History: Seen and examined this morning Follow-up for left proximal femur fracture No overnight events Pain under adequate control if she does not move. No specific complaints Review of Systems Review of Systems: Yes all other systems are reviewed and are negative Constitutional Constitutional: Denies chills and Denies fever(s) Cardiovascular Cardiovascular: Denies chest pain, Denies palpitations and Denies dyspnea Respiratory Respiratory: Denies cough and Denies dyspnea Gastrointestinal Gastrointestinal: Denies abdominal pain, Denies nausea and Denies vomiting Endocrine Endocrine: Denies palpitations Physical Exam 2 Vital Signs: Vital Signs: Last Vital Signs Temp 98.5 F 01/14/24 11:07 Pulse 82 01/14/24 11:07 Resp 20 01/14/24 11:07 BP 154/80 H 01/14/24 11:07 Pulse Ox 92 01/14/24 11:07 O2 Del Method Nasal Cannula 01/14/24 11:07 O2 Flow Rate 1 01/14/24 11:07 Oxygen Flow Rate 2 01/13/24 13:38 BMI result Body Mass Index 13.7 Const: General: comfortable, no acute distress, alert and awake Nutritional Appearance: cachectic and thin Orientation/consciousness: patient oriented x3 Resp: Effort & Inspection: normal respiratory effort, able to speak in complete sentences, no respiratory distress and no use of accessory muscles Cardio: Rate: regular rate GI: Inspection: No distended Palpation (GI): Soft to palpation and nontender Neuro: General: patient oriented x3, moves all extremities and CN's II-XI intact bilaterally Extrem: Other: LLE ER and shortened Objective Data Active Medications Acetaminophen (Acetaminophen 325 Mg Tablet) 650 mg PO Q6H PRN PRN Reason: Pain, Mild (Pain Scale 1-3), fever or headache Last Admin: 01/14/24 01:01 Dose: 325 mg Documented By: HARRY Comments: PER PT. REQUEST, PT. ONLY WANTS 1 TYLENOL. Pt. does not want anything stronger at this time for pain. Docusate Sodium (Docusate Sodium 100 Mg Capsule) 100 mg PO BID MARBELLA Last Admin: 01/14/24 08:32 Dose: Not Given Documented By: ANGELO Non-Admin Reason: Patient Refused Glucose (Glucose Gel 15 Gm Gel..Gram.) 15 gm PO Q15M PRN; Protocol PRN Reason: per Hypoglycemia Standing Ord. Dextrose (D10) 250 mls @ 750 mls/hr IV Q15M PRN; Protocol PRN Reason: per Hypoglycemia Standing Ord. Insulin Human Lispro (Insulin Lispro 100 Unit/Ml 3 Ml Vial) 0 unit SUBCUT QIDACHS [facility]; Protocol Last Admin: 01/14/24 08:41 Dose: Not Given Documented By: ANGELO Non-Admin Reason: NPO Magnesium Hydroxide (Milk Of Magnesia 30 Ml Oral.Susp) 30 ml PO DAILY PRN PRN Reason: Constipation Melatonin (Melatonin 3 Mg Tablet) 6 mg PO BEDTIME PRN PRN Reason: Insomnia Metoprolol Succinate (Metoprolol Succinate Er 12.5 Mg Halftab.Er.24h) 12.5 mg PO DAILY [facility]; Protocol Last Admin: 01/14/24 08:41 Dose: 12.5 mg Documented By: ANGELO Oxycodone HCl (Oxycodone Hcl Immed Release 5 Mg Tablet) 5 mg PO Q6H PRN PRN Reason: Pain, Severe (Pain Scale 7-10) Polyethylene Glycol (Polyethylene Glycol 3350 17 Gm Powd.Pack) 17 gm PO DAILY PRN PRN Reason: Constipation Sodium Chloride (0.9 % Sodium Chloride Flush 3 Ml Syringe) 3 ml IVFLUSH QSHIFT [facility] Last Admin: 01/14/24 08:41 Dose: 3 ml Documented By: ANGELO Labs 01/14/24 05:51 01/14/24 05:51 Labs: Laboratory Results - last 24 hr 01/13/24 01/13/24 01/13/24 15:54 18:41 21:19 MCV 94.5 MCH 30.5 MCHC 32.3 RDW 16.2 H Plt Count 176 MPV 9.7 Immature Gran % (Auto) 0.5 H Neut % (Auto) 90.7 H Lymph % (Auto) 4.1 L [place] % (Auto) 4.4 Eos % (Auto) 0.1 Baso % (Auto) 0.2 Lymph # (Auto) 0.5 L [place] # (Auto) 0.6 Eos # (Auto) 0.0 Baso # (Auto) 0.0 Abs Immat Gran (auto) 0.06 H Absolute Neuts (auto) 11.7 H Absolute Nucleated RBC 0.000 Nucleated RBC % (auto) 0.0 Smear Tech's Comments VERIFIED PT 13.3 INR 1.1 APTT 29.8 Anion Gap 17 Estim Creat Clear Calc 19.7 Estimated GFR 38 POC Glucose 303 H Random Glucose 358 H* Estimat Average Glucose 246 Hemoglobin A1c % 10.2 H Calcium 9.3 Magnesium 1.9 Total Bilirubin 0.5 Direct Bilirubin AST 47 H ALT 39 H Alkaline Phosphatase 64 Total Creatine Kinase 137 Total Protein 6.6 Albumin 3.3 L 01/13/24 01/14/24 01/14/24 22:24 05:51 08:20 MCV 96.0 MCH 30.9 MCHC 32.2 RDW 16.4 H Plt Count 163 MPV 10.5 Immature Gran % (Auto) Neut % (Auto) Lymph % (Auto) [place] % (Auto) Eos % (Auto) Baso % (Auto) Lymph # (Auto) [place] # (Auto) Eos # (Auto) Baso # (Auto) Abs Immat Gran (auto) Absolute Neuts (auto) Absolute Nucleated RBC 0.000 Nucleated RBC % (auto) 0.0 Smear Tech's Comments PT INR APTT Anion Gap 10 L Estim Creat Clear Calc 30.3 Estimated GFR > 60 POC Glucose 351 H* 168 H Random Glucose 173 H Estimat Average Glucose Hemoglobin A1c % Calcium 9.3 Magnesium Total Bilirubin 0.5 Direct Bilirubin 0.3 AST 22 ALT 25 Alkaline Phosphatase 49 Total Creatine Kinase Total Protein 6.5 Albumin 3.8 Assessment and Plan (1) Closed intertrochanteric fracture of left hip: Status: Acute Plan This is a 78-year-old female with history of COPD on 2 L home O2, SVT, protein calorie malnutrition, diabetes who came to the emergency department with left leg pain found to have left femur fracture and SVT Left proximal femur fracture Seen by orthopedic service, plan for surgery today Given probable underlying coronary artery disease, pulmonary disease and poor nutritional status, uncontrolled diabetes patient at high risk for surgery. However patient will have to remain nonweightbearing/bed-bound without surgical intervention and therefor plan to procedure with surgical intervention. seen by cardiology SVT resolved with IV lopressor Continue low-dose oral metoprolol Diabetes, uncontrolled Hold metformin hba1c >10. patient does not want to be on insulin upon discharge She follows with endocrinology and has plan for continuous glucose monitoring in the near future During hospitalization will cover with insulin sliding scale and depending on insulin needs consider starting low-dose Lantus Severe protein calorie malnutrition BMI 13 Dietary supplements Chronic respiratory failure due to underlying COPD Currently stable on baseline 1-2 L of supplemental oxygen No acute exacerbation Elevated cardiac enzymes Likely secondary to demand from NSVT Has previously been elevated in the past Has followed up with Cardiology and was offered stress test however patient has declined as recently as November of this year. No chest pain Hypotension Likely due to SVT and medications. Not due to sepsis Baseline patient has blood pressure on the lower side Chronic normocytic anemia Above transfusion threshold Follow CBC Mild transaminitis No abdominal pain Trend LFTs DVT prophylaxis-mechanical devices as surgical intervention planned in a.m.. Resume chemo prophylaxis when safe from surgical perspective Code status-full code Healthcare proxy Requires ongoing inpatient stay for surgical intervention due to femur fracture and close perioperative monitoring Quality Stroke Does the patient have a stroke diagnosis?: No VTE Prior VTE?: No VTE Risk Level:: Medical - moderate - high VTE Device Contraindication: N/A - Device Ordered VTE Drug Contraindication: N/A - Med Ordered
[2024-01-14 11:37] LABS: Glucose, Whole Blood 156 mg/dL (60-115)
--- NOTE | 2024-01-14 11:50 | PHA.MEDREC ---
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 Medication Reconciliation Pharmacy has completed the medication reconciliation. Patient states they should be on metformin 1000 mg daily, split into divided doses. Currently cuts her 850 mg tablets to reflect this, but states that she normally takes 500 mg tablets and split those to reflect 250 mg QID. The reasoning for this was because she was experiencing diarrhea with full tablets and also had trouble swallowing the tablets. Med rec to reflect this with metformin 250 mg QID (1000 mg daily).
--- NOTE | 2024-01-14 11:52 | P.CONCA_ITS ---
History of Present Illness History of Present Illness Date of Service: 01/14/24 Consult reason: pre-op evaluation Chief complaint: Leg pain Narrative: I was consulted to see Parisa in cardiology consultation today for preoperative cardiovascular risk stratification prior to hip surgery. She is a 78-year-old female with very limited functionality significantly malnourished, chronic respiratory failure on home oxygen probably related to COPD although she declines that, SVT on medical therapy, diabetes, presented to the hospital with a fall and hip fracture. Patient to undergo hip surgery urgently. Cardiology consult was called. On presentation she was noted to be in persistent SVT which was then suppressed with IV Lopressor although she had elevated troponins which are flat suggestive of myocardial distress/minimal injury. Patient denies any chest pain but did have symptoms of palpitations. She denies any prior cardiovascular events such as myocardial infarction coronary artery disease. She had been recommended in the past to undergo stress test although she had declined it for the fear of testing. Echocardiogram done last May showed normal LV ejection fraction without valvular abnormality with mild pulmonary hypertension. Review of Systems 2 Constitutional: Constitutional: Reports frequent falls, Reports lethargy, Reports poor appetite and Reports weakness Cardiovascular: Cardiovascular: Denies chest pain, Denies leg edema, Denies lightheadedness, Denies Loss of Consciousness, Reports palpitations and Reports dyspnea on exertion Respiratory: Respiratory: Reports dyspnea on exertion Gastrointestinal: Gastrointestinal: Reports no additional gastrointestinal complaints Musculoskeletal: Musculoskeletal: Reports abnormal gait Neurologic: Reports abnormal gait, Reports frequent falls and Reports weakness Psychiatric: Psychiatric: Reports no additional psychiatric complaints Endocrine: Endocrine: Reports palpitations PMFSH Past Medical History Medical History Hypotension Hypotension Tachycardia Diabetes Sepsis Pneumonia Acute sinusitis Hypoxemia Pulmonary emphysema Pneumothorax Diabetes mellitus with microalbuminuria, without long-term current use of insulin Vaccination refused by patient Underweight Intermittent palpitations Diabetes mellitus with hyperglycemia, without long-term current use of insulin Hx of fracture of wrist H/O fracture of wrist Family History Family History Father Diabetes mellitus Mother Essential hypertension Sister Breast cancer Surgical History Surgical History H/O wrist surgery History of femoral hernia repair Social History Social History Household Members: Spouse Housing: House Do you presently have visiting nurse or other home services: No Alcohol intake: never Comment: bed alarm is not working. put chair alarm on her Patient Tobacco Use Status: Never used Tobacco e-Cigarette/Vaping Use: Never Used Second Hand Smoke Exposure: Yes ( smoker) Advance Directives Date on File: 06/16/22 service: No Current occupational status: retired Cognitive needs: No Hearing needs: No Vision needs: No Meds Allergies Allergy/AdvReac Type Severity Reaction Status Date / Time sulfa Allergy Unknown diarrhea Verified 01/13/24 13:41 midazolam [From Versed] AdvReac Severe bradycardia Verified 01/13/24 13:41 Active Medications: Current Medications Acetaminophen (Acetaminophen 325 Mg Tablet) 650 mg PO Q6H PRN PRN Reason: Pain, Mild (Pain Scale 1-3), fever or headache Last Admin: 01/14/24 01:01 Dose: 325 mg Ascorbic Acid (Ascorbic Acid 500 Mg Tablet) 500 mg PO DAILY [facility] Docusate Sodium (Docusate Sodium 100 Mg Capsule) 100 mg PO BID [facility] Last Admin: 01/14/24 08:32 Dose: Not Given Glucose (Glucose Gel 15 Gm Gel..Gram.) 15 gm PO Q15M PRN; Protocol PRN Reason: per Hypoglycemia Standing Ord. Dextrose (D10) 250 mls @ 750 mls/hr IV Q15M PRN; Protocol PRN Reason: per Hypoglycemia Standing Ord. Insulin Human Lispro (Insulin Lispro 100 Unit/Ml 3 Ml Vial) 0 unit SUBCUT QIDACHS [facility]; Protocol Last Admin: 01/14/24 08:41 Dose: Not Given Magnesium Hydroxide (Milk Of Magnesia 30 Ml Oral.Susp) 30 ml PO DAILY PRN PRN Reason: Constipation Melatonin (Melatonin 3 Mg Tablet) 6 mg PO BEDTIME PRN PRN Reason: Insomnia Metoprolol Succinate (Metoprolol Succinate Er 12.5 Mg Halftab.Er.24h) 12.5 mg PO DAILY [facility]; Protocol Last Admin: 01/14/24 08:41 Dose: 12.5 mg Oxycodone HCl (Oxycodone Hcl Immed Release 5 Mg Tablet) 5 mg PO Q6H PRN PRN Reason: Pain, Severe (Pain Scale 7-10) Polyethylene Glycol (Polyethylene Glycol 3350 17 Gm Powd.Pack) 17 gm PO DAILY PRN PRN Reason: Constipation Sodium Chloride (0.9 % Sodium Chloride Flush 3 Ml Syringe) 3 ml IVFLUSH QSHIFT [facility] Last Admin: 01/14/24 08:41 Dose: 3 ml Home Medications ?Medication ?Instructions ?Recorded ?Confirmed ?Last Taken ?Type ascorbic acid (vitamin C) 500 mg 500 mg PO DAILY 05/26/20 01/14/24 01/12/24 History capsule lutein 20 mg capsule 20 mg PO DAILY 05/26/20 01/14/24 01/12/24 History magnesium citrate 125 mg capsule 125 mg PO BEDTIME 05/26/20 01/14/24 01/12/24 History lehkwzfq-tyd-dilea ac 400 1 tab PO DAILY 05/26/20 01/14/24 01/12/24 History mcg-calcium carb 500 mg-vit K1 20 mcg tablet (Women's 50 Plus Multivitamin) cholecalciferol (vitamin D3) 10 10 mcg PO DAILY 07/11/22 01/14/24 01/12/24 History mcg (400 unit) tablet (Vitamin D3) biotin 2,500 mcg chewable tablet 1,250 mcg PO DAILY 01/14/24 01/14/24 01/12/24 History clobetasol 0.05 % topical ointment 1 appl topical MOFR@0900 01/14/24 01/14/24 01/12/24 History metformin 500 mg tablet 250 mg PO QID 01/14/24 01/14/24 01/12/24 History Physical Exam 2 Vital Signs: Vital Signs: Last Vital Signs Temp 98.5 F 01/14/24 11:07 Pulse 82 01/14/24 11:07 Resp 20 01/14/24 11:07 BP 154/80 H 01/14/24 11:07 Pulse Ox 92 01/14/24 11:07 O2 Del Method Nasal Cannula 01/14/24 11:07 O2 Flow Rate 1 01/14/24 11:07 Oxygen Flow Rate 2 01/13/24 13:38 BMI result Body Mass Index 13.7 Const: General: cooperative, alert, awake and in distress mild and respiratory Nutritional Appearance: cachectic Orientation/consciousness: patient oriented x3 HEENT: Head: Yes normocephalic and Yes atraumatic Neck: Neck: Yes trachea midline, Yes supple and Yes no JVD Resp: Effort & Inspection: normal respiratory effort Auscultation: no crackles, no wheezes and diminished lung sounds Cardio: Jugular venous distension: no JVD Rate: regular rate Rhythm: r egular rhythm Heart sounds: S1 normal heart sound present, S2 normal heart sound present, no click, no gallops and no murmurs GI: Auscultation: normal bowel sounds Skin: General skin exam: no rashes or lesions noted and ecchymosis Neuro: General: patient oriented x3 and no focal motor deficits Objective Labs and Meds 01/14/24 05:51 01/14/24 05:51 Lab results: Laboratory Results - last 24 hr 01/13/24 01/13/24 01/13/24 15:54 18:41 21:19 WBC 12.9 H RBC 3.64 L Hgb 11.1 L Hct 34.4 L MCV 94.5 MCH 30.5 MCHC 32.3 RDW 16.2 H Plt Count 176 MPV 9.7 Immature Gran % (Auto) 0.5 H Neut % (Auto) 90.7 H Lymph % (Auto) 4.1 L [place] % (Auto) 4.4 Eos % (Auto) 0.1 Baso % (Auto) 0.2 Lymph # (Auto) 0.5 L [place] # (Auto) 0.6 Eos # (Auto) 0.0 Baso # (Auto) 0.0 Abs Immat Gran (auto) 0.06 H Absolute Neuts (auto) 11.7 H Absolute Nucleated RBC 0.000 Nucleated RBC % (auto) 0.0 Smear Tech's Comments VERIFIED PT 13.3 INR 1.1 APTT 29.8 Sodium 140 Potassium 4.8 Chloride 104 Carbon Dioxide 24 Anion Gap 17 BUN 38 H Creatinine 1.34 Estim Creat Clear Calc 19.7 Estimated GFR 38 POC Glucose 303 H Random Glucose 358 H* Estimat Average Glucose 246 Hemoglobin A1c % 10.2 H Calcium 9.3 Magnesium 1.9 Total Bilirubin 0.5 Direct Bilirubin AST 47 H ALT 39 H Alkaline Phosphatase 64 Total Creatine Kinase 137 Total Protein 6.6 Albumin 3.3 L 01/13/24 01/14/24 01/14/24 22:24 05:51 08:20 WBC 8.6 RBC 3.27 L Hgb 10.1 L Hct 31.4 L MCV 96.0 MCH 30.9 MCHC 32.2 RDW 16.4 H Plt Count 163 MPV 10.5 Immature Gran % (Auto) Neut % (Auto) Lymph % (Auto) [place] % (Auto) Eos % (Auto) Baso % (Auto) Lymph # (Auto) [place] # (Auto) Eos # (Auto) Baso # (Auto) Abs Immat Gran (auto) Absolute Neuts (auto) Absolute Nucleated RBC 0.000 Nucleated RBC % (auto) 0.0 Smear Tech's Comments PT INR APTT Sodium 143 Potassium 4.2 Chloride 105 Carbon Dioxide 32 H Anion Gap 10 L BUN 32 H Creatinine 0.87 Estim Creat Clear Calc 30.3 Estimated GFR > 60 POC Glucose 351 H* 168 H Random Glucose 173 H Estimat Average Glucose Hemoglobin A1c % Calcium 9.3 Magnesium Total Bilirubin 0.5 Direct Bilirubin 0.3 AST 22 ALT 25 Alkaline Phosphatase 49 Total Creatine Kinase Total Protein 6.5 Albumin 3.8 01/14/24 11:33 WBC RBC Hgb Hct MCV MCH MCHC RDW Plt Count MPV Immature Gran % (Auto) Neut % (Auto) Lymph % (Auto) [place] % (Auto) Eos % (Auto) Baso % (Auto) Lymph # (Auto) [place] # (Auto) Eos # (Auto) Baso # (Auto) Abs Immat Gran (auto) Absolute Neuts (auto) Absolute Nucleated RBC Nucleated RBC % (auto) Smear Tech's Comments PT INR APTT Sodium Potassium Chloride Carbon Dioxide Anion Gap BUN Creatinine Estim Creat Clear Calc Estimated GFR POC Glucose 156 H Random Glucose Estimat Average Glucose Hemoglobin A1c % Calcium Magnesium Total Bilirubin Direct Bilirubin AST ALT Alkaline Phosphatase Total Creatine Kinase Total Protein Albumin Imaging Radiologist's impression: Impressions Knee X-Ray 01/13/24 14:05 IMPRESSION: 1. No acute fracture or malalignment. 2. Osteopenia. Hip/Pelvis X-Ray 01/13/24 14:26 IMPRESSION: Comminuted varus impacted intertrochanteric fracture of the left proximal femur. Chest X-Ray 01/13/24 14:28 IMPRESSION: No acute pulmonary disease. Cervical Spine CT 01/13/24 17:42 IMPRESSION: 1. There is no evidence of a recent intracranial hemorrhage. 2. No acute infarct. 3. No acute fracture or subluxation of the cervical spine There are degenerative changes in the cervical spine and there are some opacities in the apex of the chest which are likely postinflammatory Head CT 01/13/24 17:42 IMPRESSION: 1. There is no evidence of a recent intracranial hemorrhage. 2. No acute infarct. 3. No acute fracture or subluxation of the cervical spine There are degenerative changes in the cervical spine and there are some opacities in the apex of the chest which are likely postinflammatory Assessment and Plan (1) Preoperative cardiovascular examination: Status: Acute Preoperative cardiovascular risk stratification in this elderly woman with very limited exercise capacity related to COPD and significant musculoskeletal disability with significant frailty and malnourishment presents to the hospital with fall leading to acute hip fracture that requires repair under general anesthesia urgently. Patient presentation SVT which has been bothering her since age of 32 but this time led to some troponin elevation suggestive of myocardial injury. It is possible that she was underlying significant coronary artery disease that is not well assessed at this point in time. She has no active cardiac symptoms of angina or symptoms of angina with her SVT. She does have significant shortness of breath. He also has underlying uncontrolled diabetes. Current time from cardiac risk perspective she is high risk for perioperative cardiovascular morbidity mortality given her multiple overall risk factors. At this point time although she requires the surgery to be done to prevent short term and care home poor outcome. Discussed with anesthesia team as well as the orthopedic team about her risk. Continue metoprolol therapy in the perioperative. Cardioprotective anesthesia. Aggressively treat hypotension as well as blood loss. Can use IV esmolol during surgical. If she has recurrent SVT to control myocardial ill demand. Will sign of the case at this point time. Thank you for allowing me to partake in her care Procedures Date of Service Date of Service: 01/14/24
--- NOTE | 2024-01-14 11:54 | MHC.CM.PN ---
IMM 01/14/24, pt lives with her , She has had VNA services in the past from [facility], she has DME of home O2 from [facility], and a walker, but she does not use it. HCP on file and confirmed, her Joseph. DCP: to be determined following her surgery. CM to follow and assist with DC plan.
[2024-01-14] MEDS: levalbuterol HCL 1.25 MG/3 ML VIAL.NEB 3.75 MG INHALE (12:47)
--- NOTE | 2024-01-14 14:27 | P.CONAN_ITS ---
[facility] Active Problems Active Problems: All Active Problems Preoperative cardiovascular examination (Acute) Closed intertrochanteric fracture of left hip (Acute) Chronic hypotension (Acute) Fall (Acute) SVT (supraventricular tachycardia) (Acute) Closed hip fracture (Acute) Hypotension (Acute) Hypotension (Acute) Malnutrition (Acute) Uncontrolled type 2 diabetes mellitus with hyperglycemia (Acute) Hypoxemia (Acute) Discomfort of back (Acute) Supraventricular tachycardia (Acute) Palpitations (Acute) Screening for colon cancer (Acute) Adult general medical exam (Acute) Proteinuria (Acute) Tachycardia (Acute) Microalbuminuria (Acute) Hypoxemia (Acute) Pulmonary emphysema (Acute) Hospital discharge follow-up (Acute) Hypoglycemia (Acute) Malnutrition of mild degree (Acute) Acute hypoxemic respiratory failure (Acute) Community acquired pneumonia (Acute) Acute hyperglycemia (Acute) Diabetes mellitus with microalbuminuria, without long-term current use of insulin (Acute) Vaccination refused by patient (Acute) Underweight (Acute) Intermittent palpitations (Acute) Diabetes mellitus with hyperglycemia, without long-term current use of insulin (Acute) Past Medical History Medical History Hypotension Hypotension Tachycardia Diabetes Sepsis Pneumonia Acute sinusitis Hypoxemia Pulmonary emphysema Pneumothorax Diabetes mellitus with microalbuminuria, without long-term current use of insulin Vaccination refused by patient Underweight Intermittent palpitations Diabetes mellitus with hyperglycemia, without long-term current use of insulin Hx of fracture of wrist H/O fracture of wrist Functional capacity: independent ambulation Patient : No Family History Family History Father Diabetes mellitus Mother Essential hypertension Sister Breast cancer Family history of problems with anesthesia: No Surgical History Surgical History H/O wrist surgery History of femoral hernia repair History of Problems with Anesthesia: No Social History Social History Household Members: Spouse Housing: House Do you presently have visiting nurse or other home services: No Alcohol intake: never Comment: bed alarm is not working. put chair alarm on her Patient Tobacco Use Status: Never used Tobacco Smoked in Last 30 Days: No e-Cigarette/Vaping Use: Never Used Patient Interested in Nicotine Replacement: No Patient Given Instructions on How to Stop Smoking: No Second Hand Smoke Exposure: Yes ( smoker) Use of substances other than those prescribed or required for medical reasons: No Currently Displaying Signs/Symptoms of Drug Intoxication Withdrawal: No Any prior treatment program specific to substance use: No Have you been hit, kicked, punched, or otherwise hurt by someone within the past year? If so, by whom?: No Do you feel safe in your current relationship?: Yes Is there a partner from a previous relationship who is making you feel unsafe now?: No Are you made to feel afraid or neglected: No Advance Directives: Yes Advance Directives Information Provided: No Advance Directives on File: Yes Advance Directives Date on File: 06/16/22 Do you have a plan to hurt others: No Plan Nutrition Risks: No Nutritional Risk Patient : No : No Poor oral hygiene: No service: No Current occupational status: retired Cognitive needs: No Hearing needs: No Vision needs: No Meds Allergies Allergy/AdvReac Type Severity Reaction Status Date / Time sulfa Allergy Unknown diarrhea Verified 01/13/24 13:41 midazolam [From Versed] AdvReac Severe bradycardia Verified 01/13/24 13:41 Active Medications: Current Medications Acetaminophen (Acetaminophen 325 Mg Tablet) 650 mg PO Q6H PRN PRN Reason: Pain, Mild (Pain Scale 1-3), fever or headache Last Admin: 01/14/24 01:01 Dose: 325 mg Ascorbic Acid (Ascorbic Acid 500 Mg Tablet) 500 mg PO DAILY [facility] Docusate Sodium (Docusate Sodium 100 Mg Capsule) 100 mg PO BID [facility] Last Admin: 01/14/24 08:32 Dose: Not Given Glucose (Glucose Gel 15 Gm Gel..Gram.) 15 gm PO Q15M PRN; Protocol PRN Reason: per Hypoglycemia Standing Ord. Dextrose (D10) 250 mls @ 750 mls/hr IV Q15M PRN; Protocol PRN Reason: per Hypoglycemia Standing Ord. Insulin Human Lispro (Insulin Lispro 100 Unit/Ml 3 Ml Vial) 0 unit SUBCUT QIDACHS [facility]; Protocol Last Admin: 01/14/24 12:46 Dose: Not Given Magnesium Hydroxide (Milk Of Magnesia 30 Ml Oral.Susp) 30 ml PO DAILY PRN PRN Reason: Constipation Melatonin (Melatonin 3 Mg Tablet) 6 mg PO BEDTIME PRN PRN Reason: Insomnia Metoprolol Succinate (Metoprolol Succinate Er 12.5 Mg Halftab.Er.24h) 12.5 mg PO DAILY [facility]; Protocol Last Admin: 01/14/24 08:41 Dose: 12.5 mg Oxycodone HCl (Oxycodone Hcl Immed Release 5 Mg Tablet) 5 mg PO Q6H PRN PRN Reason: Pain, Severe (Pain Scale 7-10) Polyethylene Glycol (Polyethylene Glycol 3350 17 Gm Powd.Pack) 17 gm PO DAILY PRN PRN Reason: Constipation Sodium Chloride (0.9 % Sodium Chloride Flush 3 Ml Syringe) 3 ml IVFLUSH QSHIFT [facility] Last Admin: 01/14/24 08:41 Dose: 3 ml Home Medications ?Medication ?Instructions ?Recorded ?Confirmed ?Last Taken ?Type ascorbic acid (vitamin C) 500 mg 500 mg PO DAILY 05/26/20 01/14/24 01/12/24 History capsule lutein 20 mg capsule 20 mg PO DAILY 05/26/20 01/14/24 01/12/24 History magnesium citrate 125 mg capsule 125 mg PO BEDTIME 05/26/20 01/14/24 01/12/24 History xjjoksfh-ozg-[id number] ac 400 1 tab PO DAILY 05/26/20 01/14/24 01/12/24 History mcg-calcium carb 500 mg-vit K1 20 mcg tablet (Women's 50 Plus Multivitamin) cholecalciferol (vitamin D3) 10 10 mcg PO DAILY 07/11/22 01/14/24 01/12/24 History mcg (400 unit) tablet (Vitamin D3) biotin 2,500 mcg chewable tablet 1,250 mcg PO DAILY 01/14/24 01/14/24 01/12/24 History clobetasol 0.05 % topical ointment 1 appl topical [id number] 01/14/24 01/14/24 01/12/24 History metformin 500 mg tablet 250 mg PO QID 01/14/24 01/14/24 01/12/24 History Exam Height,Weight and Vital Signs: Height 5 ft 3 in Weight 35 kg Last Vital Signs Temp 98.5 F 01/14/24 11:07 Pulse 74 01/14/24 12:50 Resp 18 01/14/24 12:50 BP 154/80 H 01/14/24 11:07 Pulse Ox 92 01/14/24 11:07 O2 Del Method Nasal Cannula 01/14/24 11:07 O2 Flow Rate 1 01/14/24 11:07 Oxygen Flow Rate 2 01/13/24 13:38 Pertinent Lab Results Pertinent Lab Results: Laboratory Tests 01/13/24 01/13/24 01/13/24 15:54 18:41 21:19 WBC 12.9 H RBC 3.64 L Hgb 11.1 L Hct 34.4 L MCV 94.5 MCH 30.5 MCHC 32.3 RDW 16.2 H Plt Count 176 MPV 9.7 Immature Gran % (Auto) 0.5 H Neut % (Auto) 90.7 H Lymph % (Auto) 4.1 L [place] % (Auto) 4.4 Eos % (Auto) 0.1 Baso % (Auto) 0.2 Lymph # (Auto) 0.5 L [place] # (Auto) 0.6 Eos # (Auto) 0.0 Baso # (Auto) 0.0 Abs Immat Gran (auto) 0.06 H Absolute Neuts (auto) 11.7 H Absolute Nucleated RBC 0.000 Nucleated RBC % (auto) 0.0 Smear Tech's Comments VERIFIED PT 13.3 INR 1.1 APTT 29.8 Sodium 140 Potassium 4.8 Chloride 104 Carbon Dioxide 24 Anion Gap 17 BUN 38 H Creatinine 1.34 Estim Creat Clear Calc 19.7 Estimated GFR 38 POC Glucose 303 H Random Glucose 358 H* Estimat Average Glucose 246 Hemoglobin A1c % 10.2 H Calcium 9.3 Magnesium 1.9 Total Bilirubin 0.5 Direct Bilirubin AST 47 H ALT 39 H Alkaline Phosphatase 64 Total Creatine Kinase 137 Total Protein 6.6 Albumin 3.3 L Blood Type Antibody Screen 01/13/24 01/14/24 01/14/24 22:24 05:51 08:20 WBC 8.6 RBC 3.27 L Hgb 10.1 L Hct 31.4 L MCV 96.0 MCH 30.9 MCHC 32.2 RDW 16.4 H Plt Count 163 MPV 10.5 Immature Gran % (Auto) Neut % (Auto) Lymph % (Auto) [place] % (Auto) Eos % (Auto) Baso % (Auto) Lymph # (Auto) [place] # (Auto) Eos # (Auto) Baso # (Auto) Abs Immat Gran (auto) Absolute Neuts (auto) Absolute Nucleated RBC 0.000 Nucleated RBC % (auto) 0.0 Smear Tech's Comments PT INR APTT Sodium 143 Potassium 4.2 Chloride 105 Carbon Dioxide 32 H Anion Gap 10 L BUN 32 H Creatinine 0.87 Estim Creat Clear Calc 30.3 Estimated GFR > 60 POC Glucose 351 H* 168 H Random Glucose 173 H Estimat Average Glucose Hemoglobin A1c % Calcium 9.3 Magnesium Total Bilirubin 0.5 Direct Bilirubin 0.3 AST 22 ALT 25 Alkaline Phosphatase 49 Total Creatine Kinase Total Protein 6.5 Albumin 3.8 Blood Type Antibody Screen 01/14/24 01/14/24 11:33 12:34 WBC RBC Hgb Hct MCV MCH MCHC RDW Plt Count MPV Immature Gran % (Auto) Neut % (Auto) Lymph % (Auto) [place] % (Auto) Eos % (Auto) Baso % (Auto) Lymph # (Auto) [place] # (Auto) Eos # (Auto) Baso # (Auto) Abs Immat Gran (auto) Absolute Neuts (auto) Absolute Nucleated RBC Nucleated RBC % (auto) Smear Tech's Comments PT INR APTT Sodium Potassium Chloride Carbon Dioxide Anion Gap BUN Creatinine Estim Creat Clear Calc Estimated GFR POC Glucose 156 H Random Glucose Estimat Average Glucose Hemoglobin A1c % Calcium Magnesium Total Bilirubin Direct Bilirubin AST ALT Alkaline Phosphatase Total Creatine Kinase Total Protein Albumin Blood Type O Positive Antibody Screen NEGATIVE Airway Mallampati Class: II TM Dist: >3cm Neck ROM: Full Heart: RRR Lungs: CTA breathing is not labored after Xopenex inhalation treatment Assessment and Plan Assessment Anesthesia Assessment: Anesthesia Plan Discussed Final Anesthetic Review Family History of Problems with Anesthesia: No History of Problems with Anesthesia: No NPO: Yes ASA Class: IV and Emergency Final Preanesthetic Review: Meds/Allgs Chart Reviewed, Consent Obtained/Reviewed and Anes Risks/Benef Reviewed Patient Risk: High Procedure Risk: Intermediate Anesthetic Plan Anesthetic Plan: GA Disposition: Standard PACU
--- NOTE | 2024-01-14 15:21 | P.BOP_ITS ---
Brief Operative Note Date of Service: 01/14/24 Pre-op diagnosis: Left hip intertrochanteric fracture Post-op diagnosis: same Procedure: Open reduction and internal fixation of left hip intertrochanteric fracture with placement of a short gamma nail Implants: Tiera short gamma nail measuring 11 mm in diameter by 180 mm in length, a standard set screw, lag screw measuring 100 mm in length, distal locking bolt measuring 35 mm in length Surgeon: Eugenio Tay MD Anesthesia: GETA Was an [employer] used for this Procedure?: No Estimated blood loss (mL): 100 Pathology: none sent Condition: stable Disposition: PACU
--- NOTE | 2024-01-14 15:22 | W.PM.OPN ---
Operative Note Operative Note Date of Service: 01/14/24 Narrative: After the patient was identified as Anu Stephens and her left hip was initialed by myself they were brought to the operating room where general anesthesia was induced by the anesthesiologist in routine fashion. The patient was given 2 g of IV Ancef for infection prophylaxis. The patient was then gently transferred from the hospital bed onto the fracture table. The patient's right lower extremity was placed into the well leg ash. The patient's left lower extremity was placed in gentle in-line traction with their patella parallel to the floor. All bony prominences were well padded. C-arm AP and lateral radiographs were taken to confirm good fracture reduction. The patient's left hip region was prepped and draped in sterile fashion. A formal time-out was completed. A #10 scalpel blade was used to make a 5 cm incision just proximal to the tip of the greater trochanter. A curved cannulated awl was introduced into the proximal femur in routine fashion. A ball-tipped guidewire was then placed through the cannula and into the femoral canal. The awl was removed. Reaming was begun with a 9 mm reamer. Reaming was increased incrementally up to a size 13 reamer distally. The proximal canal was reamed with a 15.5 mm reamer. The gamma nail measuring 11 mm in diameter by 180 mm in length was passed over the guidewire. Good fracture reduction and nail positioning were confirmed using C-arm AP and lateral radiographs. A 2 cm incision was then made where the lag screw trocar met the patient's lateral thigh. The subcutaneous tissues and fascia ana were split down to the lateral cortex of the femur using a hemostat. The lag screw trocar was passed down to the lateral cortex of the femur. A threaded guidewire was then placed into the inferior aspect of the femoral head on the AP x-ray and the center of the femoral head on the lateral x-ray. The guidewire measured 100 mm in length. Reaming was then performed over the guidewire to a depth of 100 mm. The lag screw measuring 100 mm in length was then placed over the guidewire. The guidewire was removed. The set screw was then placed into the nail and tightened fully. It was then turned 1/4 of a turn counter-clockwise to allow for fracture compression. The end cap was then put into place in routine fashion. A 2 cm incision was then made where the distal locking bolt trocar met the lateral aspect of the patient's thigh. The subcutaneous tissues and the fascia ana were split down to the lateral cortex of the femur. The locking bolt hole was drilled in routine fashion. The drill bit measured 35 mm in length. The distal locking bolt measuring 35 mm in length was put into place without difficulty. Final AP and lateral radiographs showed good fracture reduction and hardware positioning. All 3 wounds were irrigated with copious amounts of normal saline solution. The distal 2 wounds were closed with 2-0 Vicryl and skin todd. The proximal wound was once again irrigated. The fascia ana was closed with 0 Vicryl [id number] interrupted suture. The wound was once again irrigated. The subcutaneous tissues were closed with 2-0 Vicryl interrupted suture. The skin was closed with skin todd. Dry sterile dressing was placed over all incisions. The patient was gently transferred from the fracture table onto their hospital bed. The patient was awoken and extubated in the operating room. The patient was transferred to the recovery room in stable condition.
[2024-01-14 16:09] LABS: Glucose, Whole Blood 169 mg/dL (60-115)
[2024-01-14] MEDS: Insulin Lispro 100 UNIT/ML 3 ML VIAL SUBCUT ×2 (16:47→22:11)
[2024-01-14 20:42] LABS: Glucose, Whole Blood 159 mg/dL (60-115)
[2024-01-14] MEDS: Aspirin 325 MG TABLET PO (22:05)
[2024-01-14] MEDS: ceFAZolin Sodium/Dextrose,Iso 2 GM/50 ML PIGGYBACK IV (22:06)
[2024-01-15 03:44] VITALS: BP 111/51; PULSE 79; RESP 20; TEMP 36.1; O2SAT 98
[2024-01-15] MEDS: ceFAZolin Sodium/Dextrose,Iso 2 GM/50 ML PIGGYBACK IV (06:47)
--- NOTE | 2024-01-15 07:38 | PC.NURSE ---
Patient was somnolent at change of shift and then woke up and is alert and oriented x3 speech is clear. Patient follows all commands, she denies pain unless repositioned.Ice and pillow applied to left hip fracture , dressing is CDI . Patient takes medications whole with no complications, she is 98%on 2L , extremities are cool to touch. Patient refused colace overnight, purewick in place.
[2024-01-15 07:40] LABS: Hematocrit 29.5 % (37.0-47.0); Hemoglobin 9.3 g/dl (12.0-16.0); Mean Corpuscular HGB Conc 31.5 g/dl (31.0-35.0); Mean Corpuscular Hemoglobin 30.1 pg (27.0-33.0); Mean Corpuscular Volume 95.5 fL (80.0-98.0); Mean Platelet Volume 10.7 fL (9.4-12.3); Platelet Count 178 X10*3/uL (160-400); Red Blood Count 3.09 X10*6/uL (4.20-5.50); Red Cell Distribution Width 16.1 % (11.0-16.0); White Blood Count 15.3 X10*3/uL (4.8-10.8)
[2024-01-15 07:57] LABS: Glucose, Whole Blood 237 mg/dL (60-115)
[2024-01-15 08:00] VITALS: BP 104/62; PULSE 74; RESP 20; TEMP 36.3
[2024-01-15 08:06] LABS: Anion Gap 10 (12-20); Blood Urea Nitrogen 33 mg/dL (9-16); Calcium 8.7 mg/dL (8.4-10.2); Carbon Dioxide 31 mmol/L (22-29); Chloride 103 mmol/L (96-108); Estimated Glomerular Filt Rate > 60; Glucose Random 280 mg/dL (60-115); Sodium 139 mmol/L (135-145)
--- NOTE | 2024-01-15 08:08 | PM.PNORT ---
Subjective Subjective Date of Service: 01/15/24 Interval history: Patient is a 78-year-old female who is postop day 1 status post left IM nail placement with Dr. Tay, DOS 01/14/2024. Today, the patient reports that she is feeling well, and has no pain in her left hip at this time. The patient does report that she is experiencing some back pain at this time, but that this is her baseline due to a previous history of known spinal issues. Patient reports that she has not ambulated since surgery. No other acute complaints or concerns at this time. Physical Exam Vital Signs: Vital Signs: Last Vital Signs Temp 97.0 F 01/15/24 03:44 Pulse 79 01/15/24 03:44 Resp 20 01/15/24 03:44 BP 111/51 L 01/15/24 03:44 Pulse Ox 98 01/15/24 03:44 O2 Del Method Nasal Cannula 01/15/24 03:44 O2 Flow Rate 4 01/15/24 03:44 Oxygen Flow Rate 2 01/13/24 13:38 BMI result Body Mass Index 13.7 Extrem: Other: On inspection, dressing clean, dry, intact No surrounding erythema or evidence of infection Patient reports no tenderness to palpation about the incision sites Compartments soft, nontender Patient is able to plantar flex and dorsiflex the left foot and digits Distal sensation slightly diminished, but at patient's baseline Capillary refill brisk Procedures Date of Service Date of Service: 01/15/24 Progress Note: A&P Assessment and plan (1) Closed intertrochanteric fracture of left hip: Status: Acute Plan 1. Left intertrochanteric hip fracture, Status post left intramedullary nail placement DOS 01/14/2024 Patient appears to be recovering well postoperatively Patient is educated about the typical recovery course Patient is informed that she will be evaluated by Physical therapy in the next day or 2 for assessment as to her discharge disposition Patient is informed that during assessment with PT she will likely be attempting ambulation Patient is amenable to this plan Continue with all other recommendations per Medicine and Cardiology Time Spent With Patient Time: Total time managing care of this patient today ____ minutes. Quality Stroke Does the patient have a stroke diagnosis?: No VTE Prior VTE?: No VTE Risk Level:: Medical - moderate - high VTE Device Contraindication: N/A - Device Ordered VTE Drug Contraindication: N/A - Med Ordered
[2024-01-15] MEDS: Insulin Lispro 100 UNIT/ML 3 ML VIAL SUBCUT ×4 (08:26→20:46)
[2024-01-15] MEDS: Ascorbic Acid 500 MG TABLET PO (08:26)
[2024-01-15] MEDS: Acetaminophen 325 MG TABLET 650 MG PO ×2 (08:26→16:35)
[2024-01-15] MEDS: Aspirin 325 MG TABLET PO ×2 (08:26→20:46)
[2024-01-15] MEDS: Docusate Sodium 100 MG CAPSULE PO ×2 (08:26→20:46)
[2024-01-15] MEDS: 0.9 % Sodium Chloride Flush 3 ML SYRINGE IVFLUSH ×2 (08:31→15:36)
--- NOTE | 2024-01-15 08:44 | HO.POSTANES ---
Post Anesthesia Evaluation Post Anesthesia Evaluation Date of Service: 01/14/24 Vital Signs: Vital Signs Temp Pulse Resp BP Pulse Ox O2 Del Method O2 Flow Rate 01/15/24 03:44 97.0 F 79 20 111/51 L 98 Nasal Cannula 4 01/15/24 00:00 Nasal Cannula 4 Anesthesia: General Mental Status: Awake Pain Control: Satisfactory Nausea/Vomiting: None Hydration: Adequate Anesthesia-Related Issues: No Anes. Related Issues
[2024-01-15 10:12] VITALS: BMI 13.7
--- NOTE | 2024-01-15 10:21 | MHC.CLN ---
RE: CONSULT PT IS SEVERELY MALNOURISHED PT WITH SEVERELY DEPLETED SUBCUTANEOUS FAT AND MUSCLE MASS WITH BMI 13.7 WITH CHRONIC POOR PO INTAKE AND POSSIBLE DISORDERED EATING PATTERNS PT IS FOCUSED ON CARBOHYDRATE COUNTING R/T DM. FAMILIAR WITH PT FROM PREVIOUS ADMISSIONS. WT HX STABLE WITHOUT SIGNIFICANT CHANGES HOWEVER PT DX FROM MODERATE TO NOW SEVERELY MALNOURISHED. PT IS HYPER FOCUSED ON DM AND CARBOHYDRATE COUNTING. REVIEWED IMPORTANCE OF CALORIE INTAKE R/T MALNUTRITION. PT DRINKS GLUCERNA AT HOME. DIET RX: RECOMMEND REGULAR DIET TO INCREASE VARIETY AND PROMOTE WT GAIN PT CURRENTLY RECEIVING ENSURE TID AND PT'S STATES OVERWHELMED WITH SUPPLEMENTS RECOMMEND REDUCING ENSURE TO BID TO PROVIDE 700KCALS, 40G PROTEIN BID SUPP TO PROVIDE 67% EST KCAL NEEDS, 95% EST PROTEIN NEEDS MONITOR PO INTAKE AND ENCOURAGE SUPPLEMENTS SEE ALSO FULL CLINICAL NUTRITION ASSESSMENT
--- NOTE | 2024-01-15 10:30 | HO.PM.IMPN ---
Subjective Subjective Date of Service: 01/15/24 Interval History: Seen and examined this morning Follow-up for left proximal femur fracture No overnight events Pain under adequate control if she does not move. No specific complaints Review of Systems Review of Systems: Yes all other systems are reviewed and are negative Constitutional Constitutional: Denies chills and Denies fever(s) Cardiovascular Cardiovascular: Denies chest pain, Denies palpitations and Denies dyspnea Respiratory Respiratory: Denies cough and Denies dyspnea Gastrointestinal Gastrointestinal: Denies abdominal pain, Denies nausea and Denies vomiting Endocrine Endocrine: Denies palpitations Physical Exam Vital Signs: Vital Signs: Last Vital Signs Temp 97.4 F 01/15/24 08:00 Pulse 74 01/15/24 08:00 Resp 20 01/15/24 08:00 BP 104/62 01/15/24 08:00 Pulse Ox 98 01/15/24 03:44 O2 Del Method Nasal Cannula 01/15/24 08:00 O2 Flow Rate 2 01/15/24 08:00 Oxygen Flow Rate 2 01/13/24 13:38 BMI result Body Mass Index 13.7 Appearing in no acute distress lung sounds are clear to auscultation heart regular rate rhythm, clear S1, S2 positive bowel sounds, abdomen is soft, nontender neuro patient is alert x3, no focal deficits Left hip surgical dsg intact Objective Data Active Medications Acetaminophen (Acetaminophen 325 Mg Tablet) 650 mg PO Q6H PRN PRN Reason: Pain, Mild (Pain Scale 1-3), fever or headache Last Admin: 01/15/24 08:26 Dose: 650 mg Documented By: TRISTON Ascorbic Acid (Ascorbic Acid 500 Mg Tablet) 500 mg PO DAILY [facility] Last Admin: 01/15/24 08:26 Dose: 500 mg Documented By: TRISTON Aspirin (Aspirin 325 Mg Tablet) 325 mg PO BID [facility] Last Admin: 01/15/24 08:26 Dose: 325 mg Documented By: TRISTON Calcium Carbonate (Calcium Carbonate 750 Mg Tab.Chew) 750 mg PO Q4H PRN PRN Reason: Heartburn Docusate Sodium (Docusate Sodium 100 Mg Capsule) 100 mg PO BID [facility] Last Admin: 01/15/24 08:26 Dose: 100 mg Documented By: TRISTON Glucose (Glucose Gel 15 Gm Gel..Gram.) 15 gm PO Q15M PRN; Protocol PRN Reason: per Hypoglycemia Standing Ord. Dextrose (D10) 250 mls @ 750 mls/hr IV Q15M PRN; Protocol PRN Reason: per Hypoglycemia Standing Ord. Cefazolin Sodium/Dextrose (Ancef) 2 gm in 50 mls @ 100 mls/hr IV Q8H [facility] Stop: 01/15/24 12:00 Last Infusion: 01/15/24 07:37 Dose: Infused Documented By: ADORE Insulin Human Lispro (Insulin Lispro 100 Unit/Ml 3 Ml Vial) 0 unit SUBCUT QIDACHS [facility]; Protocol Last Admin: 01/15/24 08:26 Dose: 4 unit Documented By: TRISTON Magnesium Hydroxide (Milk Of Magnesia 30 Ml Oral.Susp) 30 ml PO DAILY PRN PRN Reason: Constipation Melatonin (Melatonin 3 Mg Tablet) 6 mg PO BEDTIME PRN PRN Reason: Insomnia Metoprolol Succinate (Metoprolol Succinate Er 12.5 Mg Halftab.Er.24h) 12.5 mg PO DAILY [facility]; Protocol Last Admin: 01/14/24 08:41 Dose: 12.5 mg Documented By: ANGELO Oxycodone HCl (Oxycodone Hcl Immed Release 5 Mg Tablet) 5 mg PO Q3H PRN PRN Reason: Pain, Severe (Pain Scale 7-10) Oxycodone HCl (Oxycodone Hcl Immed Release 5 Mg Tablet) 2.5 mg PO Q3H PRN PRN Reason: Pain, Moderate(Pain Scale 4-6) Polyethylene Glycol (Polyethylene Glycol 3350 17 Gm Powd.Pack) 17 gm PO DAILY PRN PRN Reason: Constipation Sodium Chloride (0.9 % Sodium Chloride Flush 3 Ml Syringe) 3 ml IVFLUSH [facility] Last Admin: 01/15/24 08:31 Dose: 3 ml Documented By: TRISTON Sodium Chloride (0.9 % Sodium Chloride Flush 3 Ml Syringe) 3 ml IVFLUSH [facility] Last Admin: 01/15/24 08:35 Dose: Not Given Documented By: TRISTON Non-Admin Reason: already given Labs 01/15/24 06:19 01/15/24 06:19 Labs: Laboratory Results - last 24 hr 01/14/24 01/14/24 01/14/24 11:33 12:34 16:06 MCV MCH MCHC RDW Plt Count MPV Absolute Nucleated RBC Nucleated RBC % (auto) Anion Gap Estim Creat Clear Calc Estimated GFR POC Glucose 156 H 169 H Random Glucose Calcium Blood Type O Positive Antibody Screen NEGATIVE 01/14/24 01/15/24 01/15/24 20:29 06:19 07:34 MCV 95.5 MCH 30.1 MCHC 31.5 RDW 16.1 H Plt Count 178 MPV 10.7 Absolute Nucleated RBC 0.000 Nucleated RBC % (auto) 0.0 Anion Gap 10 L Estim Creat Clear Calc 30.0 Estimated GFR > 60 POC Glucose 159 H 237 H Random Glucose 280 H Calcium 8.7 D Blood Type Antibody Screen Assessment and Plan (1) Closed intertrochanteric fracture of left hip: Status: Acute Plan This is a 78-year-old female with history of COPD on 2 L home O2, SVT, protein calorie malnutrition, diabetes who came to the emergency department with left leg pain found to have left femur fracture and SVT Left proximal femur fracture s/p ORIF with short gamma nail Minimal c/o pain PT consult OOB to chair Leukocytosis likely secondary to surgery no infection SVT resolved with IV lopressor Continue low-dose oral metoprolol Diabetes, uncontrolled Hold metformin hba1c >10. patient does not want to be on insulin upon discharge She follows with endocrinology and has plan for continuous glucose monitoring in the near future During hospitalization will cover with insulin sliding scale and depending on insulin needs consider starting low-dose Lantus Severe protein calorie malnutrition BMI 13 Dietary supplements Chronic respiratory failure due to underlying COPD Currently stable on baseline 1-2 L of supplemental oxygen No acute exacerbation Elevated cardiac enzymes Likely secondary to demand from NSVT Has previously been elevated in the past Has followed up with Cardiology and was offered stress test however patient has declined as recently as November of this year. No chest pain Hypotension. Resolved Likely due to SVT and medications. Not due to sepsis Baseline patient has blood pressure on the lower side Chronic normocytic anemia Above transfusion threshold Follow CBC Mild transaminitis No abdominal pain Trend LFTs DVT prophylaxis-full dose asa Code status-full code Healthcare proxy Requires ongoing inpatient stay for surgical intervention due to femur fracture and close perioperative monitoring Quality Stroke Does the patient have a stroke diagnosis?: No VTE Prior VTE?: No VTE Risk Level:: Medical - moderate - high VTE Device Contraindication: N/A - Device Ordered VTE Drug Contraindication: N/A - Med Ordered
[2024-01-15 10:49] VITALS: BP 91/53; PULSE 83; RESP 20; TEMP 37.2; O2SAT 97
[2024-01-15 11:32] LABS: Glucose, Whole Blood 257 mg/dL (60-115)
--- NOTE | 2024-01-15 15:34 | MHC.CM.PN ---
EMR REVIEWED, PT W/LEFT HIP FX IN NEED OF STR, [facility] ACCEPTING HOWEVER FAMILY PREFERS [facility], REFERRAL PLACED AND CM AWAITING RESPONSE, CM WILL CONT TO FOLLOW DC NEEDS.
[2024-01-15] MEDS: Milk of Magnesia 30 ML ORAL.SUSP PO (15:35)
[2024-01-15] MEDS: 0.9 % Sodium Chloride 1,000 ML 100 ML IVCONT (15:47)
[2024-01-15 16:00] VITALS: BP 91/54; PULSE 81; RESP 20; TEMP 36.4; O2SAT 92
[2024-01-15 16:48] LABS: Glucose, Whole Blood 250 mg/dL (60-115)
[2024-01-15 19:32] VITALS: BP 113/58; PULSE 92; RESP 20; TEMP 36.7; O2SAT 93
[2024-01-15 20:54] LABS: Glucose, Whole Blood 364 mg/dL (60-115)
[2024-01-15 23:38] VITALS: BP 126/61; PULSE 84; RESP 18; TEMP 36.4; O2SAT 98
[2024-01-16 04:00] VITALS: BP 113/63; PULSE 87; RESP 20; TEMP 36.2; O2SAT 98
[2024-01-16] MEDS: Acetaminophen 325 MG TABLET 650 MG PO (06:02)
[2024-01-16 06:26] LABS: Glucose, Whole Blood 184 mg/dL (60-115)
[2024-01-16 07:49] VITALS: BP 116/64; PULSE 87; RESP 20; TEMP 36.1; O2SAT 100
[2024-01-16 08:01] LABS: Glucose, Whole Blood 212 mg/dL (60-115)
[2024-01-16] MEDS: Aspirin 325 MG TABLET PO (09:17)
[2024-01-16] MEDS: Ascorbic Acid 500 MG TABLET PO (09:17)
[2024-01-16] MEDS: Insulin Lispro 100 UNIT/ML 3 ML VIAL SUBCUT (09:18)
[2024-01-16] MEDS: 0.9 % Sodium Chloride Flush 3 ML SYRINGE IVFLUSH (09:18)
--- NOTE | 2024-01-16 09:24 | MHC.CM.PN ---
Pt has been medically cleared for DC, she will go today to [facility] for STR via BLS. This was pt.'s choice.
--- NOTE | 2024-01-16 09:36 | P.DS_ITS ---
DS: Providers Provider Date of Service: 01/16/24 Date of admission: 01/13/24 19:55 Primary care physician: NAVID Arboleda Consults: 01/14/24 16:53 Consult to Orthopedics Routine Consulting Provider: [facility] Reason for consultation: left femur fracture Has provider been notified: Yes DS: Diagnosis Discharge Diagnosis (1) Closed intertrochanteric fracture of left hip: Status: Acute DS: Summary Hospital Course Hospital Course: HP as per admitting provider. This is a 78-year-old female who presents to the emergency department with left leg pain. She states that she requested help from her to go to the bathroom overnight. When she went to stand up her left leg gave out on her and she ?had a hard landing? on the toilet seat. Following that she reports having left-sided leg pain and was unable to stand up or ambulate. She denies falling, she denies hitting her head. In the emergency department imaging revealed comminuted varus impacted intertrochanteric fracture of the left proximal femur. She was also noted to be tachycardic and EKG revealed SVT. Patient has history of SVT. She received 2 doses of IV Lopressor and converted back to normal sinus rhythm. Subsequently she reported to have low blood pressure readings. Currently she denies any chest pain, palpitations, shortness of breath. The orthopedic team evaluated the patient while she was in the emergency department and recommend she be admitted to the medical service. Surgical intervention is planned for tomorrow. 78-year-old woman Status post left proximal femur fracture, ORIF with short gamma nail. She was seen by Physical therapy who recommended short-term rehab. Patient has been out of bed and ambulating with minimal amount of pain. She was noted to have leukocytosis which was likely secondary to surgery and no infection. She did have an episode of SVT which resolved with IV Lopressor, she will continue on her oral metoprolol. Plan is for patient to discharge to short-term rehab. Diabetes mellitus type 2. Continue metformin Severe protein calorie malnutrition. BMI 13. Continue dietary supplements and protein Chronic respiratory failure due to underlying COPD. Currently on baseline oxygen of 1-2 L. No exacerbation during hospitalization Elevated cardiac enzymes. Likely secondary to demand from SVT Hypotension. Resolved, likely secondary to SVT and not sepsis, baseline blood pressure is on the lower side Chronic normocytic anemia. Above transfusion threshold during hospitalization Mild transaminitis. No abdominal pain. Resolved during hospitalization Time Attestation Discharge Coordination Time (in mins): 40 Quality: Safe Use of Opioids Does Pt have an Active Cancer Diagnosis on the Problem List?: No Quality: Stroke Does the patient have a stroke diagnosis?: No Physical Exam Vital Signs: Vital Signs: Last Vital Signs Temp 97 F 01/16/24 07:49 Pulse 87 01/16/24 07:49 Resp 20 01/16/24 07:49 BP 116/64 01/16/24 07:49 Pulse Ox 100 01/16/24 07:49 O2 Del Method Nasal Cannula 01/16/24 07:49 O2 Flow Rate 2 01/16/24 07:49 Oxygen Flow Rate 2 01/13/24 13:38 BMI result Body Mass Index 13.7 Appearing in no acute distress head is normocephalic atraumatic eyes pupils are PERRLA sclera is anicteric mouth throat mucous membranes are intact and moist neck is supple no lymphadenopathy, no JVD noted lung sounds are clear to auscultation heart regular rate rhythm, clear S1, S2 positive bowel sounds, abdomen is soft, nontender neuro patient is alert x3, no focal deficits DS: Data Data Completed and Pending Labs on day of discharge: Laboratory Results - last 24 hr 01/15/24 01/15/24 01/15/24 11:26 16:19 20:40 POC Glucose 257 H 250 H 364 H* 01/16/24 01/16/24 06:21 07:56 POC Glucose 184 H 212 H Discharge Plan Discharge Anticipated Discharge Date/Time: 01/16/24 09:28 Patient Disposition: Xfer SNF Discharge Diagnosis: Status post left IM nail Referrals: Rosa Miranda [address] [Outside] - 1 Week Rosa M Tesfaye PA-C [Physician Director Environmental] - 2 Weeks (02/01/24 14:15 [facility] Rosa M Tesfaye PA-C) Vicky Treviño FNP [Primary Care Provider] - 1 Week Discharge Medications: New aspirin 325 mg Tablet 325 mg PO BID 28 Days Qty: 56 0RF omeprazole 20 mg capsule,delayed release(DR/EC) 20 mg PO DAILY 28 Days Qty: 28 0RF Continued metoprolol succinate 25 mg tablet extended release 24 hr 12.5 mg PO DAILY Qty: 45 1RF cholecalciferol (vitamin D3) [Vitamin D3] 10 mcg (400 unit) Tablet 10 mcg PO DAILY clobetasol 0.05 % ointment 1 appl topical MOFR@0900 metformin 500 mg tablet 250 mg PO QID biotin 2,500 mcg Tablet,Chewable 1,250 mcg PO DAILY Women's 50 Plus Multivitamin 400 mcg-500 mg calcium-20 mcg tablet 1 tab PO DAILY magnesium citrate 125 mg capsule 125 mg PO BEDTIME lutein 20 mg capsule 20 mg PO DAILY Rx Instructions: give with meal/snack ascorbic acid (vitamin C) 500 mg capsule 500 mg PO DAILY (DME) OneTouch Ultra Blue Test Strip Strip See Rx Instructions .ROUTE .MEDSUPPLY Qty: 100 5RF Rx Instructions: Check fasting blood sugar daily at varied time (DME) blood-glucose meter Kit See Rx Instructions .ROUTE .MEDSUPPLY Qty: 1 0RF Rx Instructions: As directed- poc daily at varied time (DME) lancets [OneTouch Delica Lancets] 33 gauge misc See Rx Instructions .ROUTE .MEDSUPPLY Qty: 100 4RF Rx Instructions: Check blood sugar daily at varied time Discharge Orders: Discharge Order (Routine); Ordered 01/16/24 Ordered By: Estefanía David Diet: Advance to usual diet Activity on Discharge: As tolerated Stand Alone Forms: Patient Portal Discharge page Print Language: French Care Plan Goals: Continue all medications as prescribed Follow-up with primary care provider as needed Health Concerns: Status post left IM nail Plan of Treatment: Gait training, strengthening, ADLs Continue anticoagulation ASA 325bid x6 w eeks Keep dressing clean, dry, intact, no showering or tub baths Follow up with Orthopedics in 2 weeks Assessment: See discharge summary
== END 2024-01-16 11:18 | disposition skilled nursing facility (03) | DRG 480 ==
LOC: HO.ED 15:57 → HO.EDOVER 20:53 → HO.IMC 22:02
PROVIDERS: Orthopaedic Surgery; Physician Assistant; Physician Assistant Medical; Admitting Provider Student in an Organized Health Care Education/Training Program; Emergency Provider Emergency Medicine; PCP Nurse Practitioner Family; Visit Provider Nurse Practitioner Acute Care
PROC: 0QS704Z Reposition Left Upper Femur with Internal Fixation Device, Open Approach (ICD-10-PCS; principal; 2024-01-14 13:00)
DX: S72.142A Displaced intertrochanteric fracture of left femur, initial encounter for closed fracture (principal); E43 Unspecified severe protein-calorie malnutrition; I47.10 Supraventricular tachycardia, unspecified; Z68.1 Body mass index [BMI] 19.9 or less, adult; J96.10 Chronic respiratory failure, unspecified whether with hypoxia or hypercapnia; D64.9 Anemia, unspecified; I95.9 Hypotension, unspecified; E11.9 Type 2 diabetes mellitus without complications; J44.9 Chronic obstructive pulmonary disease, unspecified; R74.01 Elevation of levels of liver transaminase levels; X58.XXXA Exposure to other specified factors, initial encounter; Z99.81 Dependence on supplemental oxygen; Z79.82 Long term (current) use of aspirin; Z79.84 Long term (current) use of oral hypoglycemic drugs; Z79.899 Other long term (current) drug therapy
CPT/HCPCS: 36415; 70450; 71045; 72125; 73502; 73562; 80048; 80053; 80076; 82550; 82947; 83036; 83735; 85025; 85027; 85610; 85730; 86850; 86900; 86901; 93005; 94640; 97110; 97162; 97166; 97530; 99285; C1713; J0131; J0690; J1100; J2371; J2405; J2704; J3010; P9047

== ENCOUNTER → 2024-01-13 19:55 | Outpatient (BNV) | payer MEDICARE, SELFPAY | PROVIDERS: Admitting Provider Student in an Organized Health Care Education/Training Program; Emergency Provider Emergency Medicine; PCP Nurse Practitioner Family; Visit Provider Internal Medicine Cardiovascular Disease | DX: I47.10 Supraventricular tachycardia, unspecified (principal); Z01.810 Encounter for preprocedural cardiovascular examination | CPT/HCPCS: 93010; 99222 ==

== ENCOUNTER → 2024-01-13 19:55 | Outpatient (BNV) | payer MEDICARE, SELFPAY | PROVIDERS: Admitting Provider Student in an Organized Health Care Education/Training Program; Emergency Provider Emergency Medicine; PCP Nurse Practitioner Family | DX: S72.142A Displaced intertrochanteric fracture of left femur, initial encounter for closed fracture (principal) | CPT/HCPCS: 27245; 99024; 99222 ==

== ENCOUNTER → 2024-01-13 19:55 | Outpatient (BNV) | payer MEDICARE, SELFPAY | PROVIDERS: Admitting Provider Student in an Organized Health Care Education/Training Program; Emergency Provider Emergency Medicine; PCP Nurse Practitioner Family; Visit Provider Physician Assistant Medical | DX: S72.142A Displaced intertrochanteric fracture of left femur, initial encounter for closed fracture (principal) | CPT/HCPCS: 99223; 99232; 99239 ==

== ENCOUNTER 2024-02-01 14:01 | Outpatient (AMB) | payer MEDICARE, SELFPAY ==
--- NOTE | 2024-02-01 15:05 | A.OFFVIS_ITS ---
Intake Visit Reasons: PO - Left IMN 01/14/24 Intake Note: Anu is a 78 year old female who presents today for a post op appointment s/p L IMN 01/14/24 Patient reports she is doing well, having some pain. Allergies sulfa Allergy (Unknown, Verified 01/13/24 13:41) diarrhea midazolam [From Versed] Adverse Reaction (Severe, Verified 01/13/24 13:41) bradycardia HPI HPI PO - Left IMN 01/14/24 DR: Details: 78-year-old female who presents in the office today 18 days status post open reduction and internal fixation of left hip intertrochanteric fracture with placement of a short gamma nail, which was performed by Dr. Tay on 01/14/24.? ? While in the office today, the patient reports she is doing well but having some pain.? [facility] Medical History (Updated 02/01/24 @ 15:12 by Analilia Bernardo) Closed intertrochanteric fracture of left hip Chronic hypotension Closed hip fracture Hypotension Hypotension Tachycardia Diabetes Sepsis Pneumonia Acute sinusitis Hypoxemia Pulmonary emphysema Pneumothorax Diabetes mellitus with microalbuminuria, without long-term current use of insulin Vaccination refused by patient Underweight Intermittent palpitations Diabetes mellitus with hyperglycemia, without long-term current use of insulin Hx of fracture of wrist H/O fracture of wrist Surgical History H/O wrist surgery History of femoral hernia repair Family History Father Diabetes mellitus Mother Essential hypertension Sister Breast cancer Social History Household Members: Spouse Housing: House Do you presently have visiting nurse or other home services: No Alcohol intake: never Comment: bed alarm is not working. put chair alarm on her Patient Tobacco Use Status: Never used Tobacco e-Cigarette/Vaping Use: Never Used Second Hand Smoke Exposure: Yes ( smoker) Advance Directives Date on File: 06/16/22 service: No Current occupational status: retired Cognitive needs: No Hearing needs: No Vision needs: No Review of Systems Const All systems reviewed & are unremarkable except as noted in HPI and below Physical Exam Const General: cooperative, healthy appearing and no acute distress Resp Effort & Inspection: normal respiratory effort and able to speak in complete sentences Cardio Rate: regular rate Peripheral pulses: Peripheral pulses 2+ throughout GI Palpation (GI): Soft to palpation Skin Lesions: no lesions Rashes: no rashes Extrem Other: Left hip: Incision sites are?clean, dry, and intact. [place] are intact. No surrounding erythema or drainage. No signs of infection. Good ROM. NVI.? ? Left lower extremity: Edema noted.? Assessment & Plan Assessment & Plan (1) Closed intertrochanteric fracture of left hip: Code(s): S72.142A - Displaced intertrochanteric fracture of left femur, initial encounter for closed fracture Category: Medical Qualifiers: Encounter type: initial encounter Fracture alignment: displaced Qualified Code(s): S72.142A - Displaced intertrochanteric fracture of left femur, initial encounter for closed fracture Plan Ms. Stephens is a 78-year-old female who presents in the office today 18 days status post open reduction and internal fixation of left hip intertrochanteric fracture with placement of a short gamma nail, which was performed by Dr. Tay on 01/14/24.? ? While in the office today, the patient reports she is doing well but having some pain.? ? Paras were removed and steri-stripes were applied. The patient will continue to work with physical therapy on glute, core, and quad strengthening, as well as gait training. Follow-up will be in four weeks with Dr. Tay, or sooner if needed. ? ? X-rays of the left hip which were obtained while in the office today and were reviewed by me, Rosa M Tesfaye PA-C, revealed intact orthopedic hardware with routine healing.? Orders: Orders XR femur LT 2V Today S72.142A - Displaced intertrochanteric fracture of left femur, initial encounter for closed fracture Patient Instructions: Scribed by Analilia Bernardo outside medical sales representative, for Rosa M Tesfaye PA-C on 02/01/2024 at 2:48 pm, EST.? Coding Level of Care Code Global (17351) Diagnoses Closed displaced intertrochanteric fracture of left femur, initial encounter S72.142A Encounter type: initial encounter Fracture alignment: displaced
== END 2024-02-01 15:36 | disposition home or self-care (01) ==
PROVIDERS: PCP Nurse Practitioner Family; Visit Provider Physician Assistant
DX: S72.142A Displaced intertrochanteric fracture of left femur, initial encounter for closed fracture (principal)
CPT/HCPCS: 99024

== ENCOUNTER 2024-02-01 14:32 | Outpatient (REF) | payer MEDICARE, SELFPAY ==
--- NOTE | ~2024-02-01 | XR_ITS ---
EXAMINATION: XR FEMUR, LEFT CLINICAL INFORMATION: Displaced intertrochanteric fracture of left femur. COMPARISON: 01/14/2024 fluoroscopy in OR, 01/13/2024. TECHNIQUE: AP and lateral views of the left femur were obtained. FINDINGS: Status post ORIF with intramedullary nail and compression screw device transfixing previously noted comminuted impacted intertrochanteric fracture of the left femur. A transverse screw is seen along the distal portion of the femoral component. Hardware appears intact. Left hip alignment maintained. Diffuse demineralization. Vascular calcifications. Mild degenerative changes in the left hip and knee. XR/XR femur LT 2V IMPRESSION: Status post ORIF with intramedullary nail and compression screw device transfixing previously noted comminuted impacted intertrochanteric fracture of the left femur. Electronically signed by: Rebecca Nguyen MD 02/21/2024 11:55 AM EDT
== END 2024-02-01 14:33 | disposition home or self-care (01) ==
LOC: HO.HOSX 14:32
PROVIDERS: Visit Provider Physician Assistant
DX: S72.142D Displaced intertrochanteric fracture of left femur, subsequent encounter for closed fracture with routine healing (principal); X58.XXXD Exposure to other specified factors, subsequent encounter; Z98.890 Other specified postprocedural states
CPT/HCPCS: 73552; 99212

== ENCOUNTER 2024-02-15 08:03 | Emergency (ER) | payer MEDICARE, SELFPAY ==
[2024-02-15] VITALS (7 sets, daily range): BP systolic 78–145; BP diastolic 49–73; PULSE 61–155; RESP 16–20; TEMP 36.3; O2SAT 96–100; BMI 17.5
--- NOTE | ~2024-02-15 | US_ITS ---
EXAMINATION: US TRIPLEX LOWER EXTREMITY, LEFT CLINICAL INFORMATION: Pain. Recent hip surgery. COMPARISON: None available. TECHNIQUE: Color-flow triplex imaging with spectral analysis and compression Doppler were performed on the left lower extremity. FINDINGS: Respiratory variation, normal compression and augmented flow are noted throughout the left lower extremity. The visualized common femoral vein, superficial femoral vein, profunda femoral vein, popliteal vein and midcalf peroneal and posterior tibial venous segments show no evidence of deep venous thrombosis. There is no Finch's cyst. US/US venous duplex LE LT IMPRESSION: No evidence of deep venous thrombosis involving the left lower extremity. Electronically signed by: Tang Ludwig MD 02/15/2024 10:46 AM EDT
--- NOTE | ~2024-02-15 | XR_ITS ---
EXAMINATION: XR CHEST CLINICAL INFORMATION: Dyspnea COMPARISON: Chest radiograph from 01/13/2024 TECHNIQUE: Frontal view of the chest was obtained. FINDINGS: Pacer pads, wires, and electronic devices overlying the chest, limiting evaluation. Chronic interstitial lung markings. Trace left pleural effusion with subjacent atelectasis. Bibasilar atelectasis. Hyperinflation of bilateral lung bolanos. Flattening of the bilateral hemidiaphragms. Biapical pleural parenchymal scarring. No pneumothorax. Trachea is midline. Cardiac mediastinal silhouette is not enlarged. Aorta demonstrates atherosclerotic calcifications. Chronic appearing fracture deformity of the right proximal humeral metadiaphysis. Degenerative changes of the thoracolumbar spine with dextrocurvature of the thoracolumbar junction. Soft tissues are unremarkable. XR/XR chest 1V IMPRESSION: 1. Pacer pads, wires, and electronic devices overlying the chest, limiting evaluation. 2. Chronic interstitial lung markings. 3. Trace left pleural effusion with subjacent atelectasis. 4. Bibasilar atelectasis. 5. Hyperinflation of bilateral lung bolanos. 6. Flattening of the bilateral hemidiaphragms. 7. Biapical pleural parenchymal scarring. Electronically signed by: Leora Brice MD 02/15/2024 10:57 AM EDT
--- NOTE | 2024-02-15 08:07 | ECG_ITS ---
Test Reason : svt Blood Pressure : / mmHG Vent. Rate : 160 BPM Atrial Rate : 000 BPM P-R Int : 000 ms QRS Dur : 074 ms QT Int : 286 ms P-R-T Axes : 000 071 050 degrees QTc Int : 466 ms Supraventricular tachycardia Nonspecific ST and T wave abnormality Abnormal ECG When compared with ECG of 13-JAN-2024 16:00, Vent. rate has increased BY [address] now depressed in Inferior leads Nonspecific T wave abnormality now evident in Inferior leads Nonspecific T wave abnormality, improved in Anterolateral leads Referred By: Diana Wright Electronically Signed By:CAT MANUEL
--- NOTE | 2024-02-15 08:13 | ECG_ITS ---
Test Reason : CONVERTED TO NSR Blood Pressure : / mmHG Vent. Rate : 064 BPM Atrial Rate : 064 BPM P-R Int : 138 ms QRS Dur : 070 ms QT Int : 412 ms P-R-T Axes : 077 076 064 degrees QTc Int : 425 ms Normal sinus rhythm Possible Left atrial enlargement Anterior infarct , age undetermined Abnormal ECG When compared with ECG of 15-FEB-2024 08:06, Vent. rate has decreased BY [address] no longer depressed in Inferior leads Nonspecific T wave abnormality no longer evident in Inferior leads Referred By: Diana Wright Electronically Signed By:CAT MANUEL
[2024-02-15] MEDS: 0.9 % Sodium Chloride 500 ML IV (08:19)
--- NOTE | 2024-02-15 08:24 | ED.ARRPALP ---
HPI - Arrhythmia/Palpitations General Chief Complaint: Dizziness Stated Complaint: HIGH HR 170 @SNF,LOW BP PER EMS Time Seen by Provider: 02/15/24 08:05 Source: patient and old records reviewed Mode of arrival: EMS Limitations: no limitations History of Present Illness ED Provider: DENNIS NAVA narrative: 78 yo female with PMH of SVT on metoprolol 25mg PO BID, hypotension, recent L prox femur fracture s/p ORIF with gamma nail in january 2024, DM2, COPD on 1-2L NC, anemia last hemoglobin 9.3 on 02/05 here with c/o noticing her heart was racing around 7am with dyspnea. She notes she has been getting better overall with her hip. EMS notes that she was given her metoprolol at 230am per SNF. No meds this AM. Patient was 60s/40s per EMS given 500NS and BP coming up initial HR in 170s. Patinet states she is feeling better, denies CP. Hx of same back in January and has hx of same in past. She tells me the metoprolol causes her symptoms. MD complaint: heart racing and palpitations Onset (ago): hour(s) (7am) Duration: intermittent Severity: moderate Context: occurred during rest Arrhythmia history: SVT Associated symptoms: shortness of breath Treatments prior to arrival: other (IVF) Related Data Home Medications ?Medication ?Instructions ?Recorded ?Confirmed ascorbic acid (vitamin C) 500 mg 500 mg PO DAILY 05/26/20 01/14/24 capsule lutein 20 mg capsule 20 mg PO DAILY 05/26/20 01/14/24 magnesium citrate 125 mg capsule 125 mg PO BEDTIME 05/26/20 01/14/24 otlpvdhg-iqh-mzdwe ac 400 1 tab PO DAILY 05/26/20 01/14/24 mcg-calcium carb 500 mg-vit K1 20 mcg tablet (Women's 50 Plus Multivitamin) cholecalciferol (vitamin D3) 10 10 mcg PO DAILY 07/11/22 01/14/24 mcg (400 unit) tablet (Vitamin D3) biotin 2,500 mcg chewable tablet 1,250 mcg PO DAILY 01/14/24 01/14/24 clobetasol 0.05 % topical ointment 1 appl topical MOFR@0900 01/14/24 01/14/24 metformin 500 mg tablet 250 mg PO QID 01/14/24 01/14/24 Previous Rx's ?Medication ?Instructions ?Recorded blood sugar diagnostic (OneTouch #100 ea 07/08/20 Ultra Blue Test Strip) blood-glucose meter #1 ea 07/08/20 lancets 33 gauge (OneTouch Delica #100 ea 07/08/20 Lancets) metoprolol succinate 25 mg 12.5 mg (1/2 x 25 mg) PO DAILY #45 10/31/23 tablet,extended release 24 hr tabs aspirin 325 mg tablet 325 mg PO BID 4 weeks #56 tabs 01/16/24 omeprazole 20 mg capsule,delayed 20 mg PO DAILY 4 weeks #28 caps 01/16/24 release cefuroxime axetil 250 mg tablet 250 mg PO BID 7 days #14 tabs 02/15/24 Allergies Allergy/AdvReac Type Severity Reaction Status Date / Time sulfa Allergy Unknown diarrhea Verified 02/15/24 08:22 midazolam [From Versed] AdvReac Severe bradycardia Verified 02/15/24 08:22 Review of Systems Review of Systems: Constitutional : No Fever, No Chills ENT/Mouth : No sore throat, No Rhinorrhea, No Swallowing Difficulty Eyes: No Eye Pain, No Swelling, No Redness Cardiovascular : No Chest Pain, positive SOB, No Orthopnea, no Edema, pos palpitations Respiratory : No Cough, No Sputum, No Wheezing, positive dyspnea Gastrointestinal : No Nausea, No Vomiting, No Diarrhea, No abdominal Pain, No Hematochezia, No Melena Genitourinary : No Dysuria, No Urinary Frequency, No Hematuria Musculoskeletal : No joint pain, No Myalgias Skin : No Skin Lesions, No rash Neuro : No Weakness, No Numbness, No Dizziness, No Headache Psych : No Anxiety/Panic, No Depression All other systems reviewed and are negative [facility] Past Medical History Attestation statement: The following information was validated with the patient. Source: old records reviewed Medical History Closed intertrochanteric fracture of left hip Chronic hypotension Closed hip fracture Hypotension Hypotension Tachycardia Diabetes Sepsis Pneumonia Acute sinusitis Hypoxemia Pulmonary emphysema Pneumothorax Diabetes mellitus with microalbuminuria, without long-term current use of insulin Vaccination refused by patient Underweight Intermittent palpitations Diabetes mellitus with hyperglycemia, without long-term current use of insulin Hx of fracture of wrist H/O fracture of wrist Surgical History H/O wrist surgery History of femoral hernia repair Family History Family History Father Diabetes mellitus Mother Essential hypertension Sister Breast cancer Social History Social History Household Members: Spouse Housing: House Do you presently have visiting nurse or other home services: No Alcohol intake: never Comment: bed alarm is not working. put chair alarm on her Patient Tobacco Use Status: Never used Tobacco e-Cigarette/Vaping Use: Never Used Second Hand Smoke Exposure: Yes ( smoker) Advance Directives Date on File: 06/16/22 service: No Current occupational status: retired Cognitive needs: No Hearing needs: No Vision needs: No Physical Exam Vital Signs: Vital Signs: Last Vital Signs Pulse 73 02/15/24 11:15 Resp 18 02/15/24 11:15 BP 145/73 H 02/15/24 11:15 Pulse Ox 100 02/15/24 11:15 O2 Del Method Nasal Cannula 02/15/24 11:15 O2 Flow Rate 2 02/15/24 11:15 Oxygen Flow Rate 2 02/15/24 08:19 BMI result Body Mass Index 17.5 Appearance: Alert. Oriented X3. mild acute distress. Eyes: Pupils equal, round and reactive to light. ENT: Pharynx normal. Neck: Normal inspection. Neck supple. CVS: regular tachycardic heart rate and rhythm. Pulses normal. Respiratory: No respiratory distress. Breath sounds normal. Abdomen: Soft and nontender. Skin: Skin warm and dry. pale skin color. Normal skin turgor. Extremities: L leg bruised yellow no pitting edema - distal pulse intact is is more swollen compared to left Neuro: Oriented X 3. No motor deficit. No sensory deficit. Course Course Course Narrative: converted to NSR 853am Medications Administered Discontinued Medications Generic Name Dose Route Start Last Admin Trade Name Freq PRN Reason Stop Dose Admin Sodium Chloride 500 mls @ 500 mls/hr 02/15/24 08:13 02/15/24 09:24 Ns IV 02/15/24 09:12 Infused .Q1H ONE Infusion Ceftriaxone Sodium 1 gm/ 50 mls @ 100 mls/hr 02/15/24 12:23 02/15/24 14:20 Sodium Chloride IV 02/15/24 12:52 Infused ONCE ONE Infusion Metoprolol Tartrate 2.5 mg 02/15/24 08:13 02/15/24 08:58 Metoprolol Tartrate 5 Mg/5 Ml Vial IVPUSH 02/15/24 08:14 1.5 mg ONCE ONE Administration Protocol Medical Decision Making Medical Decision Making [facility] Narrative: 78 yo female with PMH of SVT on metoprolol 25mg PO BID, hypotension, recent L prox femur fracture s/p ORIF with gamma nail in january 2024, DM2, COPD on 1-2L NC, anemia here with onset of SVT and hypotension hx of same in past - at this time she has pads on and will attempt to slow her down with gentle low dose lopressor after we get her pressure above 90s. She is mentating and not unstable but she has responded in the past to 2.5mg lopressor. She last took her dose 230am per SNF to EMS. I am also going to obtain labs and DVT study of LLE. She has had the same presentation in past. If she becomes unstable will cardiovert her. Differential Diagnosis Differential Diagnoses: The differential diagnosis associated with the presentation includes SVT, anemia, VTE Admission/Observation Consideration of admission/observation: Escalation of care including admission/observation considered HR converted BP at baseline chronic recent WBC count afebrile + UTI will dose with ceftriaxone stable for DC Lab Data [facility] Lab Attestation statement: I reviewed the patient's lab results. H/H at baseline chronic wbc count recently BNP likely due to rate and no signs of edema has no complaints feels much better 02/15/24 08:55 02/15/24 08:55 Labs: Lab Results 02/15/24 02/15/24 02/15/24 Range/Units 08:55 11:52 12:37 WBC 15.1 H (4.8-10.8) X10*3/uL RBC 3.08 L (4.20-5.50) X10*6/uL Hgb 9.5 L (12.0-16.0) g/dl Hct 31.0 L (37.0-47.0) % MCV 100.6 H (80.0-98.0) fL MCH 30.8 (27.0-33.0) pg MCHC 30.6 L (31.0-35.0) g/dl RDW 16.6 H (11.0-16.0) % Plt Count 225 D (160-400) X10*3/uL MPV 9.0 L (9.4-12.3) fL Immature Gran % (Auto) 0.8 H (0.0-0.4) % Neut % (Auto) 91.0 H (45-73) % Lymph % (Auto) 4.4 L (20-40) % [place] % (Auto) 3.3 (2-11) % Eos % (Auto) 0.2 (0-4) % Baso % (Auto) 0.3 (0-2) % Lymph # (Auto) 0.7 L (1.2-4.9) X10*3/uL [place] # (Auto) 0.5 (0.1-1.2) X10*3/uL Eos # (Auto) 0.0 (0.0-0.4) X10*3/uL Baso # (Auto) 0.1 (0.0-0.2) X10*3/uL Abs Immat Gran (auto) 0.12 H (0.00-0.03) X10*3/uL Absolute Neuts (auto) 13.7 H (2.0-8.3) x10*3/uL Absolute Nucleated RBC 0.000 (0.0-0.012) X10*3/uL Nucleated RBC % (auto) 0.0 (0.0-0.2) /100WBC Smear Tech's Comments VERIFIED PT 12.8 (11.1-13.3) SEC INR 1.1 (0.9-1.1) Sodium 140 (135-145) mmol/L Potassium 4.7 (3.3-5.1) mmol/L Chloride 103 (96-108) mmol/L Carbon Dioxide 29 (22-29) mmol/L Anion Gap 13 (12-20) BUN 23 H (9-16) mg/dL Creatinine 0.80 (0.5-1.4) mg/dL Estim Creat Clear Calc 42.2 Estimated GFR > 60 POC Glucose 197 H (60-115) mg/dL Random Glucose 192 H (60-115) mg/dL Calcium 8.5 (8.4-10.2) mg/dL Magnesium 1.6 (1.6-2.6) mg/dL Total Bilirubin 0.7 (0.0-1.0) mg/dL Direct Bilirubin 0.5 (0.0-0.5) mg/dL AST 56 H (5-31) U/L ALT 28 (0-31) U/L Alkaline Phosphatase 148 H (39-117) U/L Troponin I High Sens 5.6 D (<3.5-17.0) ng/L B-Natriuretic Peptide 741 H (<100) pg/mL Total Protein 6.3 L (6.5-8.0) g/dL Albumin 2.8 L (3.5-5.0) g/dL Lipase 22 (8-78) U/L Urine Color Yellow Urine Appearance Cloudy Urine pH 5.5 (5.0-9.0) Ur Specific [place] 1.015 (1.005-1.025) Urine Protein 100 (2+) H (Neg-Trace) mg/dL Urine Glucose (UA) Negative (Negative) mg/dL Urine Ketones Trace (Negative) mg/dL Urine Blood Negative (Negative) Urine Nitrite Negative (Negative) Ur Leukocyte Esterase Large (3+) H (Negative) Urine RBC 0-2 (0-2) /HPF Urine WBC >50 H (0-5) /HPF Ur Squamous Epith Cells 0-2 (0-2) /HPF Urine Bacteria Trace (None Seen) Hyaline Casts 3-5 (0-2) /LPF Urine Yeast Present Influenza Type A (PCR) NEGATIVE (Negative) Influenza Type B (PCR) NEGATIVE (Negative) RSV RNA Qual (PCR) NEGATIVE (Negative) SARS-CoV-2 RNA (RT-PCR) NEGATIVE (Negative) Independent Interpretation I performed an independent interpretation of an: EKG, Plain X-Ray (no pneumonia) and Ultrasound (no DVT) Interpretation: Rate: 160 Rhythm: SVT [place]: normal Normal P waves. Normal NOEL. Normal QRS complex. ST T wave : no CAT[place], flat t wave aVL, nonspecific ST T wave changes lateral leads qTC: 466 prior studies: hx of same The study has been interpreted contemporaneously by me. EKG #2 Rate: 64 Rhythm: NSR [place]: normal Normal P waves. Normal NOEL. Normal QRS complex. ST T wave : inverted t waves V1 and V3, no CATINA qTC: 425 prior studies: hx of same in past The study has been interpreted contemporaneously by me. . Radiology Impression Discussion of test interpretation with radiology: I have reviewed the radiologist's reading. Independent Historian Clinical information obtained from an independent historian. History obtained from or confirmed by: EMS External Record Review External record reviewed: Inpatient record Critical Care Time Critical Care Time Critical Care Time: Yes Total Critical Care Time: 35 Attestation: review of records, IVF, IV lopressor for SVT I attest to this time spent taking care of the patient Discharge Plan Discharge Clinical Impression: Supraventricular tachycardia, Acute UTI Patient Disposition: Xfer [facility] Transfer Details: BACK TO [facility] Instructions: Supraventricular Tachycardia (ED), Urinary Tract Infection in Women (ED) Additional Instructions: given dose of ceftriaxone in the ED return for fevers, elevated HR, vomiting or any other concerns start ceftin tomorrow morning take metoprolol tonight, monitor blood pressure chest xray no pneumonia no DVT of LLE Prescriptions: New cefuroxime axetil 250 mg tablet 250 mg PO BID 7 Days Qty: 14 0RF No Action metoprolol succinate 25 mg tablet extended release 24 hr 12.5 mg PO DAILY Qty: 45 1RF cholecalciferol (vitamin D3) [Vitamin D3] 10 mcg (400 unit) Tablet 10 mcg PO DAILY clobetasol 0.05 % ointment 1 appl topical MOFR@0900 metformin 500 mg tablet 250 mg PO QID biotin 2,500 mcg Tablet,Chewable 1,250 mcg PO DAILY aspirin 325 mg Tablet 325 mg PO BID 28 Days Qty: 56 0RF omeprazole 20 mg capsule,delayed release(DR/EC) 20 mg PO DAILY 28 Days Qty: 28 0RF Women's 50 Plus Multivitamin 400 mcg-500 mg calcium-20 mcg tablet 1 tab PO DAILY magnesium citrate 125 mg capsule 125 mg PO BEDTIME lutein 20 mg capsule 20 mg PO DAILY Rx Instructions: give with meal/snack ascorbic acid (vitamin C) 500 mg capsule 500 mg PO DAILY (DME) OneTouch Ultra Blue Test Strip Strip See Rx Instructions .ROUTE .MEDSUPPLY Qty: 100 5RF Rx Instructions: Check fasting blood sugar daily at varied time (DME) blood-glucose meter Kit See Rx Instructions .ROUTE .MEDSUPPLY Qty: 1 0RF Rx Instructions: As directed- poc daily at varied time (DME) lancets [OneTouch Delica Lancets] 33 gauge misc See Rx Instructions .ROUTE .MEDSUPPLY Qty: 100 4RF Rx Instructions: Check blood sugar daily at varied time Referrals: Eddy Oliver MD [Primary Care Provider] - Print Language: Malay
--- OUTSIDE RECORDS SUMMARY | 2024-02-15 08:38 | XMS_ITS | Continuity of Care Document ---
Author Organization [facility] Address [address] [place] [address]- Care Team Providers Care Patient Case Manager Name Role Phone Hudson DILLARD, Vicky Primary Care Physician Encounter [facility] Date(s): 01/16/23 - 02/15/23 [facility] [address] [place] [address]- Allergies, Adverse Reactions, Alerts Substance Reaction Severity Status sulfADIAZINE strange feeling al l over my body , kind of like a hot feeling Active Versed flat lined Active Medications Accu-Chek Sandy Test Strips See Instructions, # 50 bottle, Refills 11, Tot. Refills 11, Maintenance, TEST BLOOD GLUCOSE TWICE DAILY DIRECTED, 11/05/09 13:40:55, [id number], AA Test Pharmacy-Do Not Use Start Date: 11/05/09 Status: Ordered Accu-Chek Multiclix Drum Lancets See Instructions, # 102 application, Refills 11, Tot. Refills 11, Maintenance, TEST BLOOD GLUCOSE TWICE DAILY DIRECTED, 11/05/09 13:41:03, [id number], AA Test Pharmacy-Do Not Use Start Date: 11/05/09 Status: Ordered Biotin By Mouth, Daily, 0 Refills, Maintenance, 12/02/21 13:53:00 EDT, Partial fill upon patient request if the prescription is for a schedule II opioid drug. Start Date: 12/02/21 Status: Ordered Calcium Acetate = 2,001 mg, By Mouth, 3 times a day, 0 Refills, Maintenance Start Date: 05/03/12 Status: Ordered Flax Seed Oil By Mouth, Daily, 0 Refills, Maintenance Start Date: 05/03/12 Status: Ordered gabapentin 100 mg oral capsule 100 mg, 1, capsule, By Mouth, 3 times a day, # 90 capsule, Refills 0, Tot. Refills 0, Maintenance, 08/24/17 13:32:45, Route to Pharmacy Electronically, [id number], [id number] Start Date: 08/24/17 Status: Ordered Lutein By Mouth, Daily, 0 Refills, Maintenance, 12/02/21 13:53:00 EDT, Partial fill upon patient request if the prescription is for a schedule II opioid drug. Start Date: 12/02/21 Status: Ordered Magnesium Magnesium, Refills 0, Maintenance, 12/02/21 13:54:00 EDT, Supply Start Date: 12/02/21 Status: Ordered Magnesium Carbonate 0 Refills, Maintenance Start Date: 05/03/12 Status: Ordered metFORMIN 500 mg oral tablet 1 tablet = 500 mg, By Mouth, 3 times a day, one with each meal e11.9, # 90 tablet, 9 Refills, Maintenance, 02/15/23 14:35:00 EDT, Tablet, [id number], Partial fill upon patient request if the prescription is for a schedule II opioid drug.,... Start Date: 02/15/23 Stop Date: 12/12/23 Status: Ordered metFORMIN 750 mg oral tablet, extended release 1 tablet = 750 mg, By Mouth, Daily, # 30 tablet, 0 Refills, Maintenance, 10/21/22 15:14:00 EDT, ER Tablet, [id number], Partial fill upon patient request if the prescription is for a schedule II opioid drug., 162, cm, 10/21/22 14:30:00 EDT,... Start Date: 10/21/22 Status: Ordered metFORMIN 750 mg oral tablet, extended release 1 tablet = 750 mg, By Mouth, Daily, Take with first meal of the day for T2DM. E11.9, # 30 tablet, 6Refills, Maintenance, 10/21/22 15:17:00 EDT, ER Tablet, [id number], Partial fill upon patient request if the prescription is for a schedule... Start Date: 10/21/22 Status: Ordered Misc Rx Daily, Refills 0, Maintenance, 05/03/12 14:33:40 Start Date: 05/03/12 Status: Ordered Misc Rx Refills 0, Maintenance, 05/03/12 14:35:07 Start Date: 05/03/12 Status: Ordered Multivitamin By Mouth, Daily, 0 Refills, Maintenance Start Date: 05/03/12 Status: Ordered One Touch Ultra Test Strips See Instructions, # 200 each, Refills 5, Tot. Refills 5, Maintenance, use to check blood sugar up to 3 times per day e11.9, 02/15/23 14:00:00 EDT, Supply, 162, cm, 02/15/23 13:36:00 EDT, Height Start Date: 02/15/23 Stop Date: 08/14/23 Status: Ordered One Touch UltraSoft Lancets See Instructions, # 200 each, Refills 5, Tot. Refills 5, Maintenance, use to check blood sugar up to 3 times per day e11.9, 02/15/23 14:00:00 EDT, Supply, 162, cm, 02/15/23 13:36:00 EDT, Height Start Date: 02/15/23 Stop Date: 08/14/23 Status: Ordered Vitamin B12 0 Refills, Maintenance Start Date: 05/03/12 Status: Ordered Vitamin C 0 Refills, Maintenance Start Date: 05/03/12 Status: Ordered Vitamin E By Mouth, Daily, 0 Refills, Maintenance Start Date: 05/03/12 Status: Ordered Problem List Condition Confirmation Course Effective Dates Status Health St atus Informant Underweight Confirmed Active Social History Social History Type Response Smoking Status Never smoker entered on: 08/24/17 Sex Patient Care team information Care Team Personnel Name: Vicky Treviño NP Position: Reference Physician Member Role: PCP Address: Address: [address] [place] [address]- Care Team Related Persons Name: DIANE MOORE Address: home [address] [place] [address]
--- OUTSIDE RECORDS SUMMARY | 2024-02-15 08:38 | XMS_ITS | Continuity of Care Document ---
Author Organization [facility] Address [address] [place] [address] [address], [address] [place] [address]- Care Team Providers Care Relay Tester Helper Name Role Phone Hudson DILLARD, Vicky Primary Care Physician [phone] Encounter [facility] Date(s): 07/31/23 - 08/30/23 [facility] [address] [place] [address] Drive, [address] [place] [address]- Allergies, Adverse Reactions, Alerts Substance Reaction Severity Status sulfADIAZINE strange feeling al l over my body , kind of like a hot feeling Active Versed flat lined Active Medications Accu-Chek Sandy Test Strips See Instructions, # 50 bottle, Refills 11, Tot. Refills 11, Maintenance, TEST BLOOD GLUCOSE TWICE DAILY DIRECTED, 11/05/09 13:40:55, [id number], AA Test Pharmacy-Do Not Use Start Date: 11/05/09 Status: Ordered Accu-Chek Multiclix Drum Lancets See Instructions, # 102 application, Refills 11, Tot. Refills 11, Maintenance, TEST BLOOD GLUCOSE TWICE DAILY DIRECTED, 11/05/09 13:41:03, [id number], AA Test Pharmacy-Do Not Use Start Date: [...] Refills, Maintenance Start Date: 05/03/12 Status: Ordered Lutein By Mouth, Daily, 0 [...] 9 Refills, Maintenance, 02/15/23 14:35:00 EDT, Tablet, [id number], Partial fill upon patient request if the prescription is for a schedule II opioid drug.,... Start Date: 02/15/23 Stop Date: 12/12/23 Status: Ordered Metoprolol Succinate ER 25 mg oral tablet, extended release 0 Refills, Maintenance, 08/18/23 14:47:00 EDT, Partial fill upon patient request if the prescription is for a schedule II opioid drug. Start Date: 08/18/23 Status: Ordered Misc Rx Daily, Refills 0, Maintenance, 05/03/12 14:33:40 Start Date: 05/03/12 Status: Ordered Misc Rx Refills 0, Maintenance, 05/03/12 14:35:07 Start Date: 05/03/12 Status: Ordered Multivitamin By Mouth, Daily, 0 Refills, Maintenance Start Date: 05/03/12 Status: Ordered One touch delica lancets extra fine 33g One touch delica lancets extra fine 33g, See Instructions, # 100 each, Refills 7, Tot. Refills 7, Maintenance, use to test BG daily E11.9, 06/29/23 14:23:00 EST, Supply, 162, cm, 03/28/23 16:16:00 EDT, Height Start Date: 06/29/23 Status: Ordered One Touch Ultra Test Strips See Instructions, # 90 each, Refills 2, Tot. Refills 2, Maintenance, use to check blood sugar one time daily e11.9, 03/01/23 14:50:00 EDT, Supply, 162, cm, 02/15/23 13:36:00 EDT, Height Start Date: 03/01/23 Stop Date: 05/30/23 Status: Ordered Tylenol 325 mg oral tablet 325 mg, By Mouth, Every 6 hours, PRN, # 120 tablet, Refills 0, Tot. Refills 0, Maintenance, Pain , Mild, 07/05/23 11:39:00 EST, Route to Pharmacy Electronically, [facility], Partial fill upon patient request if the prescription is for a... Start Date: 07/05/23 Status: Ordered Vitamin B12 0 Refills, Maintenance [...] Care team information Care Team Personnel Name: Kristine VALENTINO, Vlad Goldberg Position: [facility] Renal MD Member Role: Lifetime Consulting Physician Address: Address: [address] [place] [address] [address] [place] [address]- [place] Name: Ashlee Brewer RN Position: [facility] RN Member Role: Primary Care Nurse Name: Angie Carl RN Position: S RN Member Role: Primary Care Nurse Name: Vicky Treviño NP Position: [facility] Outreach Member Role: PCP Address: Address: [facility] [address] [place] [address]- [place] Name: Serena Genao RN Position: S RN Member Role: Primary Care Nurse Care Team Related Persons Name: DIANE MOORE Address: [address] [place] [address] Name: TOMMY MOORE
--- OUTSIDE RECORDS SUMMARY | 2024-02-15 08:38 | XMS_ITS | Continuity of Care Document ---
Author Organization [facility] ter Address [address] [place] [address]- Care Team Providers Care Bulwark Carpenter Name Role Phone Hudson DILLARD, Vicky Primary Care Physician Encounter [facility] [place] Date(s): 01/25/23 - 04/12/[address] [address] Attending Physician: Phyllis Crane MD Admitting Physician: Phyllis Crane MD Referring Physician: Vicky Treviño NP Allergies, Adverse Reactions, Alerts Substance Reaction Severity Status sulfADIAZINE strange feeling al l over my body , kind of like a hot feeling Active Versed flat lined Active Medications Accu-Chek Sandy Test Strips See Instructions, # 50 bottle, Refills 11, Tot. Refills 11, Maintenance, TEST BLOOD GLUCOSE TWICE DAILY DIRECTED, 11/05/09 13:40:55, [id number], AA Test Pharmacy-Do Not Use Start Date: 11/05/09 Status: Ordered Accu-Chek Multiclix Drum Lancets See Instructions, # 102 application, Refills 11, Tot. Refills 11, Maintenance, TEST BLOOD GLUCOSE TWICE DAILY DIRECTED, 11/05/09 13:41:03, [id number], AA Test Pharmacy-Do Not Use Start Date: [...] Maintenance, 08/24/17 13:32:45, Route to Pharmacy Electronically, [id number], [facility] Start Date: 08/24/17 [...] 9 Refills, Maintenance, 02/15/23 14:35:00 EDT, Tablet, [facility], Partial fill upon patient request if the prescription is for a schedule II opioid drug.,... Start Date: 02/15/23 Stop Date: 12/12/23 Status: Ordered metFORMIN 750 mg oral tablet, extended release 1 tablet = 750 mg, By Mouth, Daily, # 30 tablet, 0 Refills, Maintenance, 10/21/22 15:14:00 EDT, ER Tablet, [facility], Partial fill upon [...] 6Refills, Maintenance, 10/21/22 15:17:00 EDT, ER Tablet, [facility], Partial fill upon [...] Date: 03/01/23 Stop Date: 05/30/23 Status: Ordered One Touch UltraSoft Lancets See Instructions, # 90 each, Refills 2, Tot. Refills 2, Maintenance, use to check blood sugar one time daily e11.9, 03/01/23 14:51:00 EDT, Supply, 162, cm, 02/15/23 13:36:00 EDT, Height Start Date: 03/01/23 Stop Date: 05/30/23 Status: Ordered Vitamin B12 0 Refills, Maintenance [...] Personnel Name: Kristine VALENTINO, Vlad Goldberg Position: [facility] Renal MD Member Role: Lifetime Consulting Physician Address: Address: [address] [place] [address] [address] [place] [address]- [place] Name: Vicky Treviño NP Position: Reference Physician Member Role: PCP Address: Address: [address] [place] [address]- [place] Care Team Related Persons Name: DIANE MOORE Address: home [address] [place] [address]
--- OUTSIDE RECORDS SUMMARY | 2024-02-15 08:38 | XMS_ITS | Continuity of Care Document ---
Author Organization [facility] [employer] [employer] Address [address] [place] [address], [address] [place] [address]- Care Team Providers Care City Detective Name Role Phone Hudson DILLARD, Vicky Primary Care Physician Encounter [facility] [id number] Date(s): 10/24/22 - 11/23/22 [facility] [facility] [address] [facility], 4th [address] [place], [place] [address] Attending Physician: Storm Obrien Admitting Physician: AdmStorm dawkins Referring Physician: AdmtrStorm Allergies, Adverse Reactions, Alerts Substance Reaction Severity Status sulfADIAZINE strange feeling al l over my body , kind of like a hot feeling Active Versed flat lined Active Medications Accu-Chek Sandy Test Strips See Instructions, # 50 bottle, Refills 11, Tot. Refills 11, Maintenance, TEST BLOOD GLUCOSE TWICE DAILY DIRECTED, 11/05/09 13:40:55, [id number], AA Test Pharmacy-Do Not Use Start Date: 11/05/09 Status: Ordered Accu-Chek Multiclix Drum Lancets See Instructions, # 102 application, Refills 11, Tot. Refills 11, Maintenance, TEST BLOOD GLUCOSE TWICE DAILY DIRECTED, 11/05/09 13:41:03, [id number], AA Test Pharmacy-Do Not Use Start Date: [...] Maintenance, 08/24/17 13:32:45, Route to Pharmacy Electronically, [id number], [id number] Start Date: 08/24/17 Status: [...] 1 tablet = 500 mg, By Mouth, 2 times a day, # 60 tablet, 5 Refills, Maintenance, 06/24/22 13:15:00 EST, Tablet, [facility], Partial fill upon patient request if the prescription is for a schedule II opioid drug., 162, cm, 12/02/21 13:46:00... Start Date: 06/24/22 Stop Date: 12/21/22 Status: Ordered metFORMIN 750 mg oral tablet, extended release 1 tablet = 750 mg, By Mouth, Daily, # 30 tablet, 0 Refills, Maintenance, 10/21/22 15:14:00 EDT, ER Tablet, [facility], Partial [...] 6Refills, Maintenance, 10/21/22 15:17:00 EDT, ER Tablet, [facility], Partial fill upon patient request if the prescription is for a schedule... Start Date: 10/21/22 Status: Ordered Misc Rx Daily, Refills 0, Maintenance, 05/03/12 14:33:40 Start Date: 05/03/12 Status: Ordered Misc Rx Refills 0, Maintenance, 05/03/12 14:35:07 Start Date: 05/03/12 Status: Ordered Multivitamin By Mouth, Daily, 0 Refills, Maintenance Start Date: 05/03/12 Status: Ordered Vitamin B12 0 Refills, Maintenance [...] PCP Address: Address: [address] [place] [address]- Care Team Related Persons Name: DIANE MOORE Address: home [address] [place] [address]
--- OUTSIDE RECORDS SUMMARY | 2024-02-15 08:38 | XMS_ITS | Continuity of Care Document ---
Author Organization [facility] Address [address] [place] [address]- Care Team Providers Care Director Regulatory Compliance Name Role Phone Vicky Treviño NP Primary Care Physician [phone] [place] [facility] [id number] Date(s): 06/26/23 - 07/26/23 [facility] [address] [place] [address]- Allergies, Adverse Reactions, Alerts Substance Reaction Severity Status sulfADIAZINE strange feeling al l over my body , kind of like a hot feeling Active Versed flat lined Active Medications Accu-Chek Sandy Test Strips See Instructions, # 50 bottle, Refills 11, Tot. Refills 11, Maintenance, TEST BLOOD GLUCOSE TWICE DAILY DIRECTED, 11/05/09 13:40:55, [id number], AA Test Pharmacy-Do Not Use Start Date: 11/05/09 Status: Ordered Accu-Chek Multiclix Drum Lancets See Instructions, # 102 application, Refills 11, Tot. Refills 11, Maintenance, TEST BLOOD GLUCOSE TWICE DAILY DIRECTED, 11/05/09 13:41:03, [id number], AA Test Pharmacy-Do Not Use Start Date: [...] 9 Refills, Maintenance, 02/15/23 14:35:00 EDT, Tablet, [facility], Partial fill upon patient request if the prescription is for a schedule II opioid drug.,... Start Date: 02/15/23 Stop Date: 12/12/23 Status: Ordered Misc Rx Daily, Refills 0, [...] 07/05/23 11:39:00 EST, Route to Pharmacy Electronically, [facility], Partial fill upon patient [...] Personnel Name: Kristine VALENTINO, Vlad Goldberg Position: [facility] Renal MD Member Role: Lifetime Consulting Physician Address: Address: [address] [place] [address] [address] [place] [address]- [place] Name: Ashlee Brewer RN Position: S RN Member Role: Primary Care Nurse Name: Angie Carl RN Position: S RN Member Role: Primary Care Nurse Name: Vicky Treviño NP Position: [facility] Outreach Member Role: PCP Address: Address: [address] [place] [address] [address] [place] [address]- [place] Name: Serena Genao RN Position: S RN Member Role: Primary Care Nurse Care Team Related Persons Name: DIANE MOORE Address: [address] [place] [address] Name: TOMMY MOORE
--- OUTSIDE RECORDS SUMMARY | 2024-02-15 08:38 | XMS_ITS | Continuity of Care Document ---
Author Organization [facility] Address [address] [place] [address] [address], [address] [place] [address]- Care Team Providers Care Sales Representative Public Utilities Name Role Phone Hudson DILLARD, Vicky Primary Care Physician Encounter [facility] Date(s): 08/18/23 - 08/25/23 [facility] [address] [place] [address] Drive, [address] [place] [address]- Attending Physician: Not on Staff, Attending MD Allergies, Adverse Reactions, Alerts Substance Reaction Severity Status sulfADIAZINE strange feeling al l over my body , kind of like a hot feeling Active Versed flat lined Active Medications Accu-Chek Sandy Test Strips See Instructions, # 50 bottle, Refills 11, Tot. Refills 11, Maintenance, TEST BLOOD GLUCOSE TWICE DAILY DIRECTED, 11/05/09 13:40:55, [id number], AA Test Pharmacy-Do Not Use Start Date: 11/05/09 Status: Ordered Accu-Chek Multiclix Drum Lancets See Instructions, # 102 application, Refills 11, Tot. Refills 11, Maintenance, TEST BLOOD GLUCOSE TWICE DAILY DIRECTED, 11/05/09 13:41:03, [id number], AA Test Pharmacy-Do Not Use Start Date: [...] 9 Refills, Maintenance, 02/15/23 14:35:00 EDT, Tablet, [facility], Partial fill upon patient [...] 07/05/23 11:39:00 EST, Route to Pharmacy Electronically, [facility], Partial fill upon patient [...] [facility] Informant Underweight Confirmed Active Vital Signs Most recent to oldest [Reference Range]: 1 Height 161 cm (08/18/23 2:46 PM) Weight 36.8 kg (08/18/23 2:46 PM) Body Mass Index [18.5-24.99 kg/m2] 14.2 kg/m2 *L* (08/18/23 2:46 PM) Social History Social History Type Response Smoking Status Never smoker entered on: 08/24/17 Sex Patient Care team information Care Team Personnel Name: Kristine VALENTINO, Vlad Goldberg Position: [facility] Renal MD Member Role: Lifetime Consulting Physician Address: Address: [address] [place] [address] [address] [place] [address]- [place] Name: Ashlee Brewer RN Position: S RN Member Role: Primary Care Nurse Name: Angie Carl RN Position: S RN Member Role: Primary Care Nurse Name: Vicky Treviño NP Position: [facility] Outreach Member Role: PCP Address: Address: [facility] [address] [place] [address]- [place] Name: Serena Genao RN Position: S RN Member Role: Primary Care Nurse Care Team Related Persons Name: DIANE MOORE Address: home [address] [place] [address] Name: TOMMY MOORE
--- OUTSIDE RECORDS SUMMARY | 2024-02-15 08:38 | XMS_ITS | Continuity of Care Document ---
Author Organization [facility] Address [address] [place] [address]- Care Team Providers Care Cast Iron Drain Pipe Layer Name Role Phone Hudson DILLARD, Vicky Primary Care Physician En[place] [facility] [place] Date(s): 09/04/23 - 10/04/23 [facility] [address] [place] [address]- Allergies, Adverse Reactions, Alerts Substance Reaction Severity Status sulfADIAZINE strange feeling al l over my body , kind of like a hot feeling Active Versed flat lined Active Medications Accu-Chek Sandy Test Strips See Instructions, # 50 bottle, Refills 11, Tot. Refills 11, Maintenance, TEST BLOOD GLUCOSE TWICE DAILY DIRECTED, 11/05/09 13:40:55, [id number], AA Test Pharmacy-Do Not Use Start Date: 11/05/09 Status: Ordered Accu-Chek Multiclix Drum Lancets See Instructions, # 102 application, Refills 11, Tot. Refills 11, Maintenance, TEST BLOOD GLUCOSE TWICE DAILY DIRECTED, 11/05/09 13:41:03, [id number], AA Test Pharmacy-Do Not Use Start Date: [...] 9 Refills, Maintenance, 02/15/23 14:35:00 EDT, Tablet, [facility], Partial fill upon patient [...] 07/05/23 11:39:00 EST, Route to Pharmacy Electronically, [facility], Partial fill upon [...] Personnel Name: Kristine VALENTINO, Vlad Goldberg Position: [facility] Renal MD Member Role: Lifetime Consulting Physician Address: Address: [address] [place] [address] [address] [place] [address]- Name: Ashlee Brewer RN Position: S RN Member Role: Primary Care Nurse Name: Angie Carl RN Position: S RN Member Role: Primary Care Nurse Name: Vicky Treviño NP Position: [facility] Outreach Member Role: PCP Address: Address: [address] [place] [address] [address] [place] [address]- [place] Name: Serena Genao RN Position: S RN Member Role: Primary Care Nurse Care Team Related Persons Name: DIANE MOORE Address: [address] [place] [address] Name: TOMMY MOORE
--- OUTSIDE RECORDS SUMMARY | 2024-02-15 08:38 | XMS_ITS | Continuity of Care Document ---
Author Organization [facility] Address [address] [place] [address]- Care Team Providers Care Potato Seed Cutter Name Role Phone Ho VALENTINO, Rosalinda Li Primary Care Physician [place] [facility] [place] 06/24/22 - 07/24/22 [facility] [address] [place] [address] Allergies, Adverse Reactions, Alerts Substance Reaction Severity Status sulfADIAZINE strange feeling al l over my body , kind of like a hot feeling Active Versed flat lined Active Medications Accu-Chek Sandy Test Strips See Instructions, # 50 bottle, Refills 11, Tot. Refills 11, Maintenance, TEST BLOOD GLUCOSE TWICE DAILY DIRECTED, 11/05/09 13:40:55, [id number], AA Test Pharmacy-Do Not Use Start Date: 11/05/09 Status: Ordered Accu-Chek Multiclix Drum Lancets See Instructions, # 102 application, Refills 11, Tot. Refills 11, Maintenance, TEST BLOOD GLUCOSE TWICE DAILY DIRECTED, 11/05/09 13:41:03, [id number], AA Test Pharmacy-Do Not Use Start Date: [...] Maintenance, 08/24/17 13:32:45, Route to Pharmacy Electronically, [id number], [facility] Start Date: 08/24/17 [...] 5 Refills, Maintenance, 06/24/22 13:15:00 EST, Tablet, [facility], Partial fill upon patient request if the prescription is for a schedule II opioid drug., 162, cm, 12/02/21 13:46:00... Start Date: 06/24/22 Stop Date: 12/21/22 Status: Ordered Misc Rx Daily, Refills 0, [...] Care team information Care Team Personnel Name: Ho VALENTINO , Rosalinda Li Position: Reference Physician Member Role: PCP Address: Address: [address] [place] [id number] Care Team Related Persons Name: DIANE MOORE Address: home [address] [place] [address]
--- OUTSIDE RECORDS SUMMARY | 2024-02-15 08:38 | XMS_ITS | Continuity of Care Document ---
Author Organization [facility] Address [address] [place] [address]- Care Team Providers Care Solar Engineer Name Role Phone Hudson DILLARD, Vicky Primary Care Physician Encounter [facility] [place] Date(s): 10/26/22 - 11/25/22 [facility] [address] [place] [address]- Allergies, Adverse Reactions, Alerts Substance Reaction Severity Status sulfADIAZINE strange feeling al l over my body , kind of like a hot feeling Active Versed flat lined Active Medications Accu-Chek Sandy Test Strips See Instructions, # 50 bottle, Refills 11, Tot. Refills 11, Maintenance, TEST BLOOD GLUCOSE TWICE DAILY DIRECTED, 11/05/09 13:40:55, [id number], AA Test Pharmacy-Do Not Use Start Date: 11/05/09 Status: Ordered Accu-Chek Multiclix Drum Lancets See Instructions, # 102 application, Refills 11, Tot. Refills 11, Maintenance, TEST BLOOD GLUCOSE TWICE DAILY DIRECTED, 11/05/09 13:41:03, [id number], AA Test Pharmacy-Do Not Use Start Date: [...] Maintenance, 08/24/17 13:32:45, Route to Pharmacy Electronically, [id number], [facility] Start Date: 08/24/17 Status: Ordered [...] 5 Refills, Maintenance, 06/24/22 13:15:00 EST, Tablet, [facility], Partial fill upon patient request if the prescription is for a schedule II opioid drug., 162, cm, 12/02/21 13:46:00... Start Date: 06/24/22 Stop Date: 12/21/22 Status: Ordered metFORMIN 750 mg oral tablet, extended release 1 tablet = 750 mg, By Mouth, Daily, # 30 tablet, 0 Refills, Maintenance, 10/21/22 15:14:00 EDT, ER Tablet, [facility], Partial fill upon patient request if the prescription is for a schedule II opioid drug., 162, cm, 10/21/22 14:30:00 EDT,... Start Date: 10/21/22 Status: Ordered metFORMIN 750 mg oral tablet, extended release 1 tablet = 750 mg, By Mouth, Daily, Take with first meal of the day for T2DM. E11.9, # 30 tablet, 6Refills, Maintenance, 10/21/22 15:17:00 EDT, ER Tablet, [facility], Partial fill upon patient [...] PCP Address: Address: [address] [place] [address]- Care Team Related Persons Name: DIANE MOORE Address: [address] [address]
--- OUTSIDE RECORDS SUMMARY | 2024-02-15 08:39 | XMS_ITS | Continuity of Care Document ---
Author Organization [facility] Address [address] [place] [address]- Care Team Providers Care Deposition Operator Name Role Phone Vicky Treviño NP Primary Care Physician En[place] [facility] [place] Date(s): 02/15/23 - 03/17/23 [facility] [address] [place] [id number] Attending Physician: Storm Obrien Admitting Physician: Admtr, Storm Referring Physician: Admtr Ar8 Allergies, Adverse Reactions, Alerts Substance Reaction Severity Status sulfADIAZINE strange feeling al l over my body , kind of like a hot feeling Active Versed flat lined Active Medications Accu-Chek Sandy Test Strips See Instructions, # 50 bottle, Refills 11, Tot. Refills 11, Maintenance, TEST BLOOD GLUCOSE TWICE DAILY DIRECTED, 11/05/09 13:40:55, [id number], AA Test Pharmacy-Do Not Use Start Date: 11/05/09 Status: Ordered Accu-Chek Multiclix Drum Lancets See Instructions, # 102 application, Refills 11, Tot. Refills 11, Maintenance, TEST BLOOD GLUCOSE TWICE DAILY DIRECTED, 11/05/09 13:41:03, [id number], AA Test Pharmacy-Do Not Use Start Date: [...] Maintenance, 08/24/17 13:32:45, Route to Pharmacy Electronically, [id number], [facility] Start Date: 08/24/17 Status: [...] 9 Refills, Maintenance, 02/15/23 14:35:00 EDT, Tablet, [facility], Partial fill upon patient request if the prescription is for a schedule II opioid drug.,... Start Date: 02/15/23 Stop Date: 12/12/23 Status: Ordered metFORMIN 750 mg oral tablet, extended release 1 tablet = 750 mg, By Mouth, Daily, # 30 tablet, 0 Refills, Maintenance, 10/21/22 15:14:00 EDT, ER Tablet, [facility], Partial fill upon patient request if the prescription is for a schedule II opioid drug., 162, cm, 10/21/22 14:30:00 EDT,... Start Date: 10/21/22 Status: Ordered metFORMIN 750 mg oral tablet, extended release 1 tablet = 750 mg, By Mouth, Daily, Take with first meal of the day for T2DM. E11.9, # 30 tablet, 6Refills, Maintenance, 10/21/22 15:17:00 EDT, ER Tablet, [facility], Partial fill upon patient [...] PCP Address: Address: [address] [place] [address]- Care Team Related Persons Name: DIANE MOORE Address: home [address] [place] [address]
--- OUTSIDE RECORDS SUMMARY | 2024-02-15 08:39 | XMS_ITS | Continuity of Care Document ---
Author Organization [facility] Address [address] [place] [address]- Care Team Providers Care Mat Roller Name Role Phone Hudson DILLARD, Vicky Primary Care Physician Encounter [facility] [place] Date(s): 10/21/22 - 11/20/22 [facility] [address] [place] [address] Attending Physician: Storm Obrien Admitting Physician: Storm Obrien Referring Physician: AdmtrStorm Allergies, Adverse Reactions, Alerts Substance Reaction Severity Status sulfADIAZINE strange feeling al l over my body , kind of like a hot feeling Active Versed flat lined Active Medications Accu-Chek Sandy Test Strips See Instructions, # 50 bottle, Refills 11, Tot. Refills 11, Maintenance, TEST BLOOD GLUCOSE TWICE DAILY DIRECTED, 11/05/09 13:40:55, [id number], [facility] Test Pharmacy-Do Not Use Start Date: 11/05/09 Status: Ordered Accu-Chek Multiclix Drum Lancets See Instructions, # 102 application, Refills 11, Tot. Refills 11, Maintenance, TEST BLOOD GLUCOSE TWICE DAILY DIRECTED, 11/05/09 13:41:03, [id number], AA Test Pharmacy-Do Not Use Start Date: [...] Maintenance, 08/24/17 13:32:45, Route to Pharmacy Electronically, [id number], [facility] Start Date: 08/24/17 [...] 5 Refills, Maintenance, 06/24/22 13:15:00 EST, Tablet, [facility], Partial fill upon patient request if the prescription is for a schedule II opioid drug., 162, cm, 12/02/21 13:46:00... Start Date: 06/24/22 Stop Date: 12/21/22 Status: Ordered metFORMIN 750 mg oral tablet, extended release 1 tablet = 750 mg, By Mouth, Daily, # 30 tablet, 0 Refills, Maintenance, 10/21/22 15:14:00 EDT, ER Tablet, [facility], Partial fill upon patient request if the prescription is for a schedule II opioid drug., 162, cm, 10/21/22 14:30:00 EDT,... Start Date: 10/21/22 Status: Ordered metFORMIN 750 mg oral tablet, extended release 1 tablet = 750 mg, By Mouth, Daily, Take with first meal of the day for T2DM. E11.9, # 30 tablet, 6Refills, Maintenance, 10/21/22 15:17:00 EDT, ER Tablet, [facility], Partial fill upon patient [...] Physician Member Role: PCP Address: Address: [address] [place] [address]- Care Team Related Persons Name: DIANE MOORE Address: home [address] [place] [address]
--- OUTSIDE RECORDS SUMMARY | 2024-02-15 08:39 | XMS_ITS | Continuity of Care Document ---
Author Organization [facility] Address [address] [place] [address]- Care Team Providers Care Moving Consultant Name Role Phone Vicky Treviño NP Primary Care Physician [place] [facility] [place]s): 06/29/23 - 07/29/23 [facility] [address] [place] [address]- Allergies, Adverse Reactions, Alerts Substance Reaction Severity Status sulfADIAZINE strange feeling al l over my body , kind of like a hot feeling Active Versed flat lined Active Medications Accu-Chek Sandy Test Strips See Instructions, # 50 bottle, Refills 11, Tot. Refills 11, Maintenance, TEST BLOOD GLUCOSE TWICE DAILY DIRECTED, 11/05/09 13:40:55, [id number], AA Test Pharmacy-Do Not Use Start Date: 11/05/09 Status: Ordered Accu-Chek Multiclix Drum Lancets See Instructions, # 102 application, Refills 11, Tot. Refills 11, Maintenance, TEST BLOOD GLUCOSE TWICE DAILY DIRECTED, 11/05/09 13:41:03, [id number], AA Test Pharmacy-Do Not Use Start Date: [...] 9 Refills, Maintenance, 02/15/23 14:35:00 EDT, Tablet, [facility], Partial fill upon [...] 07/05/23 11:39:00 EST, Route to Pharmacy Electronically, [facility], Partial fill upon patient [...] Personnel Name: Kristine VALENTINO, Vlad Goldberg Position: [facility] Renal MD Member Role: Lifetime Consulting Physician Address: Address: [address] [place] [address] [address] [place] [address]- [place] Name: Ashlee Brewer RN Position: S RN Member Role: Primary Care Nurse Name: Angie Carl RN Position: S RN Member Role: Primary Care Nurse Name: Vicky Treviño NP Position: [facility] Outreach Member Role: PCP Address: Address: [address] [place] [address] [address] [place] [address]- [place] Name: Serena Genao RN Position: S RN Member Role: Primary Care Nurse Care Team Related Persons Name: DIANE MOORE Address: [address] [place] [address] Name: TOMMY MOORE
--- OUTSIDE RECORDS SUMMARY | 2024-02-15 08:39 | XMS_ITS | Continuity of Care Document ---
Author Organization [facility] Address [address] [place] [address]- Care Team Providers Care Rn Plasma Center Name Role Phone Vicky Treviño NP Primary Care Physician Encounter [facility] [place] Date(s): 02/17/23 - 03/19/23 [facility] [address] [place] [address]- Allergies, Adverse Reactions, Alerts Substance Reaction Severity Status sulfADIAZINE strange feeling al l over my body , kind of like a hot feeling Active Versed flat lined Active Medications Accu-Chek Sandy Test Strips See Instructions, # 50 bottle, Refills 11, Tot. Refills 11, Maintenance, TEST BLOOD GLUCOSE TWICE DAILY DIRECTED, 11/05/09 13:40:55, [id number], AA Test Pharmacy-Do Not Use Start Date: 11/05/09 Status: Ordered Accu-Chek Multiclix Drum Lancets See Instructions, # 102 application, Refills 11, Tot. Refills 11, Maintenance, TEST BLOOD GLUCOSE TWICE DAILY DIRECTED, 11/05/09 13:41:03, [id number], AA Test Pharmacy-Do Not Use Start Date: [...] Maintenance, 08/24/17 13:32:45, Route to Pharmacy Electronically, [id number], [facility] Start Date: 08/24/17 Status: [...] 9 Refills, Maintenance, 02/15/23 14:35:00 EDT, Tablet, [facility], Partial fill upon patient request if the prescription is for a schedule II opioid drug.,... Start Date: 02/15/23 Stop Date: 12/12/23 Status: Ordered metFORMIN 750 mg oral tablet, extended release 1 tablet = 750 mg, By Mouth, Daily, # 30 tablet, 0 Refills, Maintenance, 10/21/22 15:14:00 EDT, ER Tablet, [facility], Partial fill upon patient request if the prescription is for a schedule II opioid drug., 162, cm, 10/21/22 14:30:00 EDT,... Start Date: 10/21/22 Status: Ordered metFORMIN 750 mg oral tablet, extended release 1 tablet = 750 mg, By Mouth, Daily, Take with first meal of the day for T2DM. E11.9, # 30 tablet, 6Refills, Maintenance, 10/21/22 15:17:00 EDT, ER Tablet, [facility], Partial fill upon patient request if the prescription is for a schedule... Start Date: 10/21/22 Status: Ordered Misc Rx Daily, Refills 0, Maintenance, 05/03/12 14:33:40 Start Date: 11/29/12 Status: Ordered Misc Rx Refills 0, Maintenance, [...] PCP Address: Address: [address] [place] [address]- Care Team Related Persons Name: DIANE MOORE Address: home [address] [place] [address]
--- OUTSIDE RECORDS SUMMARY | 2024-02-15 08:39 | XMS_ITS | Continuity of Care Document ---
Author Organization [facility] ter Address [address] [place] [address]- Care Team Providers Care Cook Candy Name Role Phone Hudson DILLARD, Vicky Primary Care Physician [phone] [place] [facility] [place] - 09/02/[address] [address] Attending Physician: Melvin Myers Admitting Physician: Melvin Myers Referring Physician: Melvin Meyrs Allergies, Adverse Reactions, Alerts Substance Reaction Severity Status sulfADIAZINE strange feeling al l over my body , kind of like a hot feeling Active Versed flat lined Active Medications Accu-Chek Sandy Test Strips See Instructions, # 50 bottle, Refills 11, Tot. Refills 11, Maintenance, TEST BLOOD GLUCOSE TWICE DAILY DIRECTED, 11/05/09 13:40:55, [id number], AA Test Pharmacy-Do Not Use Start Date: 11/05/09 Status: Ordered Accu-Chek Multiclix Drum Lancets See Instructions, # 102 application, Refills 11, Tot. Refills 11, Maintenance, TEST BLOOD GLUCOSE TWICE DAILY DIRECTED, 11/05/09 13:41:03, [id number], AA Test Pharmacy-Do Not Use Start Date: [...] 9 Refills, Maintenance, 02/15/23 14:35:00 EDT, Tablet, [facility], Partial fill upon patient [...] 07/05/23 11:39:00 EST, Route to Pharmacy Electronically, [facility], Partial fill upon patient request [...] Personnel Name: Kristine VALENTINO, Vlad Goldberg Position: [facility] Renal MD Member Role: Lifetime Consulting Physician Address: Address: [address] [place] [address] [address] [place] [address]- [place] Name: Ashlee Brewer RN Position: [facility] RN Member Role: Primary Care Nurse Name: Angie Carl RN Position: [facility] RN Member Role: Primary Care Nurse Name: Vicky Treviño NP Position: [facility] Outreach Member Role: PCP Address: Address: [address] [place] [address] [address] [place] [address]- [place] Name: Serena Genao RN Position: S RN Member Role: Primary Care Nurse Care Team Related Persons Name: DIANE MOORE Address: [address] [place] [address] Name: TOMMY MOORE
--- OUTSIDE RECORDS SUMMARY | 2024-02-15 08:39 | XMS_ITS | Continuity of Care Document ---
Author Organization [facility] Address [address] [place] [address]- Care Team Providers Care Air Route Controller Name Role Phone Vicky Treviño NP Primary Care Physician Encounter [facility] [place] [id number] Date(s): 06/26/23 - 07/26/23 [facility] [address] [place] [address]- Allergies, Adverse Reactions, Alerts Substance Reaction Severity Status sulfADIAZINE strange feeling al l over my body , kind of like a hot feeling Active Versed flat lined Active Medications Accu-Chek Sandy Test Strips See Instructions, # 50 bottle, Refills 11, Tot. Refills 11, Maintenance, TEST BLOOD GLUCOSE TWICE DAILY DIRECTED, 11/05/09 13:40:55, [id number], AA Test Pharmacy-Do Not Use Start Date: 11/05/09 Status: Ordered Accu-Chek Multiclix Drum Lancets See Instructions, # 102 application, Refills 11, Tot. Refills 11, Maintenance, TEST BLOOD GLUCOSE TWICE DAILY DIRECTED, 11/05/09 13:41:03, [id number], AA Test Pharmacy-Do Not Use Start Date: [...] 9 Refills, Maintenance, 02/15/23 14:35:00 EDT, Tablet, [facility], Partial fill upon patient request [...] 07/05/23 11:39:00 EST, Route to Pharmacy Electronically, [facility], Partial fill upon patient [...] Personnel Name: Kristine VALENTINO, Vlad Goldberg Position: [facility] Renal MD Member Role: Lifetime Consulting Physician Address: Address: [address] [place] [address] [address] [place] [address]- [place] Name: Ashlee Brewer RN Position: S RN Member Role: Primary Care Nurse Name: Angie Carl RN Position: S RN Member Role: Primary Care Nurse Name: Vicky Treviño NP Position: [facility] Outreach Member Role: PCP Address: Address: [address] [place] [address] [address] [place] [address]- [place] Name: Serena Genao RN Position: S RN Member Role: Primary Care Nurse Care Team Related Persons Name: DIANE MOORE Address: [address] [place] [address] Name: TOMMY MOORE
--- OUTSIDE RECORDS SUMMARY | 2024-02-15 08:39 | XMS_ITS | Continuity of Care Document ---
Author Organization [facility] ter Address [address] [place] [address]- Care Team Providers Care Health Coach Name Role Phone Hudson DILLARD, Vicky Primary Care Physician [phone] [place] [id number] Date(s): 04/26/23 - 05/26/[address] [address]- Attending Physician: Storm Obrien Admitting Physician: AdmtrStorm Referring Physician: Admtr ArYakelin Allergies, Adverse Reactions, Alerts Substance Reaction Severity Status sulfADIAZINE strange feeling al l over my body , kind of like a hot feeling Active Versed flat lined Active Medications Accu-Chek Sandy Test Strips See Instructions, # 50 bottle, Refills 11, Tot. Refills 11, Maintenance, TEST BLOOD GLUCOSE TWICE DAILY DIRECTED, 11/05/09 13:40:55, [id number], AA Test Pharmacy-Do Not Use Start Date: 11/05/09 Status: Ordered Accu-Chek Multiclix Drum Lancets See Instructions, # 102 application, Refills 11, Tot. Refills 11, Maintenance, TEST BLOOD GLUCOSE TWICE DAILY DIRECTED, 11/05/09 13:41:03, [id number], AA Test Pharmacy-Do Not Use Start Date: [...] Maintenance, 08/24/17 13:32:45, Route to Pharmacy Electronically, [id number], [facility] Start Date: 08/24/17 Status: [...] 9 Refills, Maintenance, 02/15/23 14:35:00 EDT, Tablet, [facility], Partial fill upon patient request if the prescription is for a schedule II opioid drug.,... Start Date: 02/15/23 Stop Date: 12/12/23 Status: Ordered metFORMIN 750 mg oral tablet, extended release 1 tablet = 750 mg, By Mouth, Daily, # 30 tablet, 0 Refills, Maintenance, 10/21/22 15:14:00 EDT, ER Tablet, [facility], Partial fill upon patient request if the prescription is for a schedule II opioid drug., 162, cm, 10/21/22 14:30:00 EDT,... Start Date: 10/21/22 Status: Ordered metFORMIN 750 mg oral tablet, extended release 1 tablet = 750 mg, By Mouth, Daily, Take with first meal of the day for T2DM. E11.9, # 30 tablet, 6Refills, Maintenance, 10/21/22 15:17:00 EDT, ER Tablet, [facility], Partial fill upon patient [...] Personnel Name: Kristine VALENTINO, Vlad Goldberg Position: [facility] Renal MD Member Role: Lifetime Consulting Physician Address: Address: [address] [place] [address] [address] [place] [address]- [place] Name: Vicky Treviño NP Position: Reference Physician Member Role: PCP Address: Address: [address] [place] [address]- [place] Care Team Related Persons Name: DIANE MOORE Address: [address] [place] [address]
--- OUTSIDE RECORDS SUMMARY | 2024-02-15 08:39 | XMS_ITS | Continuity of Care Document ---
Author Organization [facility] Address [address] [place] [address]- Care Team Providers Care Modeling Director Name Role Phone Hudson DILLARD, Vicky Primary Care Physician [phone] [place] [facility] [place](s[place] 03/01/23 - 03/31/23 [facility] [address] [place] [address]- Allergies, Adverse Reactions, Alerts Substance Reaction Severity Status sulfADIAZINE strange feeling al l over my body , kind of like a hot feeling Active Versed flat lined Active Medications Accu-Chek Sandy Test Strips See Instructions, # 50 bottle, Refills 11, Tot. Refills 11, Maintenance, TEST BLOOD GLUCOSE TWICE DAILY DIRECTED, 11/05/09 13:40:55, [id number], AA Test Pharmacy-Do Not Use Start Date: 11/05/09 Status: Ordered Accu-Chek Multiclix Drum Lancets See Instructions, # 102 application, Refills 11, Tot. Refills 11, Maintenance, TEST BLOOD GLUCOSE TWICE DAILY DIRECTED, 11/05/09 13:41:03, [id number], AA Test Pharmacy-Do Not Use Start Date: [...] Maintenance, 08/24/17 13:32:45, Route to Pharmacy Electronically, [id number], [facility]278 Start Date: 08/24/17 [...] Refills, Maintenance, 10/21/22 15:14:00 EDT, ER Tablet, [facility], [...] 6Refills, Maintenance, 10/21/22 15:17:00 EDT, ER Tablet, [facility], [...] PCP Address: Address: [address] [place] [address]- Care Team Related Persons Name: DIANE MOORE Address: home [address] [place] [address]
--- OUTSIDE RECORDS SUMMARY | 2024-02-15 08:39 | XMS_ITS | Continuity of Care Document ---
Author Organization [facility] Address [address] [place] [address]- Care Team Providers Care Roller Skate Repairer Name Role Phone Ho VALENTINO, Rosalinda Li Primary Care Physician [place] [facility] [place] 07/24/22 [facility] [address] [place] [address] Allergies, Adverse Reactions, Alerts Substance Reaction Severity Status sulfADIAZINE strange feeling al l over my body , kind of like a hot feeling Active Versed flat lined Active Medications Accu-Chek Sandy Test Strips See Instructions, # 50 bottle, Refills 11, Tot. Refills 11, Maintenance, TEST BLOOD GLUCOSE TWICE DAILY DIRECTED, 11/05/09 13:40:55, [id number], [facility] Test Pharmacy-Do Not Use Start Date: 11/05/09 Status: Ordered Accu-Chek Multiclix Drum Lancets See Instructions, # 102 application, Refills 11, Tot. Refills 11, Maintenance, TEST BLOOD GLUCOSE TWICE DAILY DIRECTED, 11/05/09 13:41:03, [id number], [facility] Test Pharmacy-Do Not Use Start Date: [...] Maintenance, 08/24/17 13:32:45, Route to Pharmacy Electronically, [id number], [facility] Start Date: 08/24/17 Status: [...] 5 Refills, Maintenance, 06/24/22 13:15:00 EST, Tablet, [facility], Partial fill upon patient [...] Reference Physician Member Role: PCP Address: Address: [address] [place] [id number] Care Team Related Persons Name: DIANE MOORE Address: home [address] [place] [address]
--- OUTSIDE RECORDS SUMMARY | 2024-02-15 08:39 | XMS_ITS | Continuity of Care Document ---
Author Organization [facility] Address [address] [place] [address]- Care Team Providers Care Masseur/Masseuse Name Role Phone Hudson DILLARD, Vicky Primary Care Physician [phone] [place] [facility] [place](s): 06/21/23 - 07/21/23 [facility] [address] [place] [address]- Allergies, Adverse Reactions, Alerts Substance Reaction Severity Status sulfADIAZINE strange feeling al l over my body , kind of like a hot feeling Active Versed flat lined Active Medications Accu-Chek Sandy Test Strips See Instructions, # 50 bottle, Refills 11, Tot. Refills 11, Maintenance, TEST BLOOD GLUCOSE TWICE DAILY DIRECTED, 11/05/09 13:40:55, [id number], [facility] Test Pharmacy-Do Not Use Start Date: 11/05/09 Status: Ordered Accu-Chek Multiclix Drum Lancets See Instructions, # 102 application, Refills 11, Tot. Refills 11, Maintenance, TEST BLOOD GLUCOSE TWICE DAILY DIRECTED, 11/05/09 13:41:03, [id number], [facility] Test Pharmacy-Do Not Use Start Date: [...] 9 Refills, Maintenance, 02/15/23 14:35:00 EDT, Tablet, [facility], Partial fill upon patient [...] 07/05/23 11:39:00 EST, Route to Pharmacy Electronically, [facility], Partial fill upon patient request [...] Personnel Name: Kristine VALENTINO, Vlad Goldberg [facility] Renal MD Member Role: Lifetime Consulting Physician Address: Address: [address] [place] [address] [address] [place] [address]- Name: Ashlee Brewer RN Position: S RN Member Role: Primary Care Nurse Name: Angie Carl RN Position: S RN Member Role: Primary Care Nurse Name: Vicky Treviño NP Position: [facility] Outreach Member Role: PCP Address: Address: [address] [place] [address] [address] [place] [address]- [place] Name: Serena Genao RN Position: [facility] RN Member Role: Primary Care Nurse Care Team Related Persons Name: DIANE MOORE Address: [address] [place] [address] Name: TOMMY MOORE
--- OUTSIDE RECORDS SUMMARY | 2024-02-15 08:39 | XMS_ITS | Continuity of Care Document ---
Author Organization [facility] Address [address] [place] [address] [address], [address] [place] [address]- Care Team Providers Care Making Machine Operator Name Role Phone Hudson DILLARD, Vicky Primary Care Physician En[place] [facility] [place] Date(s): 07/25/23 - 08/24/23 [facility] [address] [place] [address] Drive, [address] [place] [address]- Allergies, Adverse Reactions, Alerts Substance Reaction Severity Status sulfADIAZINE strange feeling al l over my body , kind of like a hot feeling Active Versed flat lined Active Medications Accu-Chek Sandy Test Strips See Instructions, # 50 bottle, Refills 11, Tot. Refills 11, Maintenance, TEST BLOOD GLUCOSE TWICE DAILY DIRECTED, 11/05/09 13:40:55, [id number], [facility] Test Pharmacy-Do Not Use Start Date: 11/05/09 Status: Ordered Accu-Chek Multiclix Drum Lancets See Instructions, # 102 application, Refills 11, Tot. Refills 11, Maintenance, TEST BLOOD GLUCOSE TWICE DAILY DIRECTED, 11/05/09 13:41:03, [id number], AA Test Pharmacy-Do Not Use Start Date: [...] 9 Refills, Maintenance, 02/15/23 14:35:00 EDT, Tablet, [facility], Partial fill upon patient request [...] 07/05/23 11:39:00 EST, Route to Pharmacy Electronically, [facility], Partial fill upon patient [...] Personnel Name: Kristine VALENTINO, Vlad Goldberg Position: [facility] Renal MD Member Role: Lifetime Consulting Physician Address: Address: [address] [place] [address] [address] [place] [address]- [place] Name: Ashlee Brewer RN Position: [facility] RN Member Role: Primary Care Nurse Name: Angie Carl RN Position: S RN Member Role: Primary Care Nurse Name: Vicky Treviño NP Position: [facility] Outreach Member Role: PCP Address: Address: [facility] [address] [place] [address]- [place] Name: Serena Genao RN Position: S RN Member Role: Primary Care Nurse Care Team Related Persons Name: DIANE MOORE Address: home [address] [place] [address] Name: TOMMY MOORE
--- OUTSIDE RECORDS SUMMARY | 2024-02-15 08:39 | XMS_ITS | Continuity of Care Document ---
Author Organization [facility] Address [address] [place] [address]- Care Team Providers Care Manager Mechanical Name Role Phone Ho VALENTINO, Rosalinda Li Primary Care Physician [place] [facility] [place] - 07/24/22 [facility] Diabetes [address] [place] [address]- Allergies, Adverse Reactions, Alerts Substance Reaction Severity Status sulfADIAZINE strange feeling al l over my body , kind of like a hot feeling Active Versed flat lined Active Medications Accu-Chek Sandy Test Strips See Instructions, # 50 bottle, Refills 11, Tot. Refills 11, Maintenance, TEST BLOOD GLUCOSE TWICE DAILY DIRECTED, 11/05/09 13:40:55, [id number], [facility] Test Pharmacy-Do Not Use Start Date: 11/05/09 Status: Ordered Accu-Chek Multiclix Drum Lancets See Instructions, # 102 application, Refills 11, Tot. Refills 11, Maintenance, TEST BLOOD GLUCOSE TWICE DAILY DIRECTED, 11/05/09 13:41:03, [id number], [facility] Test Pharmacy-Do Not Use Start Date: [...] Maintenance, 08/24/17 13:32:45, Route to Pharmacy Electronically, [id number], [facility]278 Start Date: 08/24/17 Status: [...] 5 Refills, Maintenance, 06/24/22 13:15:00 EST, Tablet, [facility], Partial fill upon patient [...] Reference Physician Member Role: PCP Address: Address: [address] [place] [address] Care Team Related Persons Name: DIANE MOORE Address: home [address] [facility] [address]
--- OUTSIDE RECORDS SUMMARY | 2024-02-15 08:39 | XMS_ITS | Continuity of Care Document ---
Author Organization [facility] ter Address [address] [place] [address]- Care Team Providers Care Powder And Primer Canning Leader Name Role Phone Hudson DILLARD, Vicky Primary Care Physician En[place] [facility] [place] [id number] Date(s): 03/28/23 - 05/26/[address] [address] Attending Physician: Phyllis Crane MD Admitting Physician: [...] BLOOD GLUCOSE TWICE DAILY DIRECTED, 11/05/09 13:40:55, [id number], [facility] Test Pharmacy-Do Not Use Start Date: 11/05/09 Status: Ordered Accu-Chek Multiclix Drum Lancets See Instructions, # 102 application, Refills 11, Tot. Refills 11, Maintenance, TEST BLOOD GLUCOSE TWICE DAILY DIRECTED, 11/05/09 13:41:03, [id number], [facility] Test Pharmacy-Do Not Use Start Date: [...] Maintenance, 08/24/17 13:32:45, Route to Pharmacy Electronically, [id number], [facility] Start Date: 08/24/17 [...] 9 Refills, Maintenance, 02/15/23 14:35:00 EDT, Tablet, [facility], Partial fill upon patient request if the prescription is for a schedule II opioid drug.,... Start Date: 02/15/23 Stop Date: 12/12/23 Status: Ordered metFORMIN 750 mg oral tablet, extended release 1 tablet = 750 mg, By Mouth, Daily, # 30 tablet, 0 Refills, Maintenance, 10/21/22 15:14:00 EDT, ER Tablet, [facility], Partial fill upon [...] 6Refills, Maintenance, 10/21/22 15:17:00 EDT, ER Tablet, [facility], Partial fill upon [...] Personnel Name: Kristine VALENTINO, Vlad Goldberg Position: [facility] Renal MD Member Role: Lifetime Consulting Physician Address: Address: [address] [place] [address]- [place] Name: Vicky Treviño NP Position: Reference Physician Member Role: PCP Address: Address: [address] [place] [address]- [place] Care Team Related Persons Name: FRANCISCO JAVIERJONELDIANE LOMELI Address: [address] [place] [address]
--- OUTSIDE RECORDS SUMMARY | 2024-02-15 08:39 | XMS_ITS | Continuity of Care Document ---
Author Organization [facility] and Diabetes Address [address] [place] [id number]- Care Team Providers Care Director Auto Name Role Phone Vicky Treviño NP Primary Care Physician Encounter [facility] Date(s): 02/15/23 - 03/17/23 [facility] [address] [place] [id number]- Allergies, Adverse Reactions, Alerts Substance Reaction Severity Status sulfADIAZINE strange feeling al l over my body , kind of like a hot feeling Active Versed flat lined Active Medications Accu-Chek Sandy Test Strips See Instructions, # 50 bottle, Refills 11, Tot. Refills 11, Maintenance, TEST BLOOD GLUCOSE TWICE DAILY DIRECTED, 11/05/09 13:40:55, [id number], [facility] Pharmacy-Do Not Use Start Date: 11/05/09 Status: Ordered Accu-Chek Multiclix Drum Lancets See Instructions, # 102 application, Refills 11, Tot. Refills 11, Maintenance, TEST BLOOD GLUCOSE TWICE DAILY DIRECTED, 11/05/09 13:41:03, [id number], [facility] Pharmacy-Do Not Use Start Date: [...] Maintenance, 08/24/17 13:32:45, Route to Pharmacy Electronically, [id number], [id number] Start Date: [...] 9 Refills, Maintenance, 02/15/23 14:35:00 EDT, Tablet, [id number], Partial fill upon patient request if the prescription is for a schedule II opioid drug.,... Start Date: 02/15/23 Stop Date: 12/12/23 Status: Ordered metFORMIN 750 mg oral tablet, extended release 1 tablet = 750 mg, By Mouth, Daily, # 30 tablet, 0 Refills, Maintenance, 10/21/22 15:14:00 EDT, ER Tablet, [id number], Partial fill [...] 6Refills, Maintenance, 10/21/22 15:17:00 EDT, ER Tablet, [id number], Partial fill [...] PCP Address: Address: [address] [place] [address]- Care Team Related Persons Name: DIANE MOORE Address: [address] [place] [address]
--- OUTSIDE RECORDS SUMMARY | 2024-02-15 08:39 | XMS_ITS | Continuity of Care Document ---
Author Organization [facility] ter Address [address] [place] [id number]- Care Team Providers Care Hose Maker Name Role Phone Hudson DILLARD, Vicky Primary Care Physician Encounter [facility] [place] ACCT R [id number] Date(s): 07/01/23 - 07/05/[address] [address]- Encounter Diagnosis Fall(Final) - 07/01/23 Compression fracture of spine(Final) - 07/01/23 Back pain(Final) - 07/01/23 Discharge Disposition: A-Transfer VNA/Home Health Attending Physician: Barbara Morales MD Admitting Physician: Rex Vasques MD Referring Physician: Not on Staff, Referring MD Allergies, Adverse Reactions, Alerts Substance Reaction Severity Status sulfADIAZINE strange feeling al l over my body , kind of like a hot feeling Active Versed flat lined Active Medications Accu-Chek Sandy Test Strips See Instructions, # 50 bottle, Refills 11, Tot. Refills 11, Maintenance, TEST BLOOD GLUCOSE TWICE DAILY DIRECTED, 11/05/09 13:40:55, [id number], AA Test Pharmacy-Do Not Use Start Date: 11/05/09 Status: Ordered Accu-Chek Multiclix Drum Lancets See Instructions, # 102 application, Refills 11, Tot. Refills 11, Maintenance, TEST BLOOD GLUCOSE TWICE DAILY DIRECTED, 11/05/09 13:41:03, [id number], AA Test Pharmacy-Do Not Use Start Date: [...] 9 Refills, Maintenance, 02/15/23 14:35:00 EDT, Tablet, [id number], Partial fill upon patient [...] Tylenol 325 mg oral tablet 325 mg, Tablet, By Mouth, Every 6 hours, PRN for Pain , Mild, Routine, 07/02/23 9:00:00 EST Start Date: 07/02/23 Stop Date: 07/06/23 Status: Discontinued Tylenol 325 mg oral tablet 325 mg, By Mouth, Every 6 hours, PRN, # 120 tablet, Refills 0, Tot. Refills 0, Maintenance, Pain , Mild, 07/05/23 11:39:00 EST, Route to Pharmacy Electronically, [facility], Partial fill upon [...] [facility] Informant Underweight Confirmed Active Results Radiology Reports * Exam Date Time Procedure Performing Provider Status 07/02/23 5:52 PM MRI Thoracic Spine W/O Contrast Kelsea Perez; Kwabena (Verified) Notes: (MRI Thoracic Spine W/O Contrast) Reason For Exam: Pain/Trauma RESULT: MRI Thoracic Spine W/O Contrast MRI Thoracic Spine W/O Contrast Reason: Pain Trauma; Clinical Question(s): Fracture Dislocation; Special Instructions: better evaluation of T9 burst fracture; Order Comment: Please see Reference Text for complete list of contraindications / Fracture/Dislocation TECHNIQUE: MRI of the thoracic spine was performed without intravenous contrast utilizing sagittal T1, sagittal T2, sagittal STIR, axial T1, and axial T2- weighted sequences. COMPARISON: CT 06/24/2023 FINDINGS: Sagittal T2-weighted localizer images include the cervical and lumbar spine. No significant abnormality of the vertebral bodies or spinal canal is demonstrated in these segments. There is a central disc herniation at C4-5 without definite spinal cord compression. ALIGNMENT, VERTEBRAE, MARROW, AND DISCS: A burst fracture of T9 is again demonstrated with 3 mm of retropulsion seen at the level of the mid vertebral body. An approximately 50% loss of height is present with the minimum height measuring 9 mm. There is T1 hypointensity and STIR hyperintensity in the vertebral body but not in the posterior elements. Minor paravertebral edema is present but no paravertebral mass is noted. There is no mass effect on the spinal cord. A small amount of STIR hyperintensity is present in the anterior inferior T7 vertebral body and could reflect edema and a bone bruise. No definite loss of height of this vertebral body is noted in the posterior cortical margin is intact. No marrow signal abnormality is noted elsewhere to suggest the presence of metastatic disease. CORD: The thoracic cord is normal in signal and contour. PARASPINAL TISSUES: No mass is identified. There are scattered areas of parenchymal disease in either lung. A small central disc herniation at T7-8 does not appear to be significant. IMPRESSION: 1. Mild to moderate burst fracture of T9 with a minimum vertebral body height of 9 mm and 3 mm of retropulsion. No spinal cord compression is produced. Edema in the vertebral bodies consistent with an acute injury. There are no associated features to suggest that this is pathologic. 2. Small amount of STIR hyperintensity in the anterior inferior T7 vertebral body which could represent a bone bruise. 3. Small central disc herniation at T7-8 of doubtful clinical significance. WSN: [id number] Ordering Physician: Karan Rinaldi Dictated By: Cr Ashton MD Dictated Date/Time: 07/03/23 7:34 am Reviewed By: Cr Ashton MD Signed By: Cr Ashton MD Signed Date/Time: 07/03/23 7:34 am Transcribed By: SHARON Transcribed Date/Time: 07/03/23 7:25 am * Exam Date Time Procedure Performing Provider Status 07/02/23 5:[address] Thoracic Spine W/O Contrast Eric Doyle; Kwabena (Verified) Notes: (CT Thoracic Spine W/O Contrast) Reason For Exam: Back Pain RESULT: CT Thoracic Spine W/O Contrast CT Thoracic Spine W/O Contrast INDICATION: Reason: Back Pain; Clinical Question(s): Fracture Dislocation; Order Comment: COMPARISON: TECHNIQUE: Spiral CT scan was performed through the thoracic spine. Bone and soft tissue algorithmswere reconstructed along with axial, coronal and sagittal reformats. FINDINGS: Bony structures: There is a sclerotic line seen through the T9 vertebral body. There appears to be mild retropulsion and moderate loss of vertebral body height. This likely represents acute or subacute fracture. Probable Schmorl's node at L2. Alignment and intervertebral disc spaces: The alignment is maintained. Degenerative changes are noted including disc height loss, anterior osteophytes and posterior disc osteophyte complexes at multiple levels Soft tissues and lung apices: Diffuse bronchiectasis noted. IMPRESSION: Likely acute or subacute T9 fracture with mild retropulsion. WSN: [id number] Ordering Physician: Karan Rinaldi Dictated By: Benjamin Cervantes MD Dictated Date/Time: 07/02/23 7:35 pm Reviewed By: Benjamin Cervantes MD Signed By: Benjamin Cervantes MD Signed Date/Time: 07/02/23 7:35 pm Transcribed By: SHARON Transcribed Date/Time: 07/02/23 7:28 pm * Exam Date Time Procedure Performing Provider Status 07/02/23 2:[address] 3D Rend W/O Post Proc Bel Doyle; Kwabena (Verified) Notes: (CT 3D Rend W/O Post Proc) Reason For Exam: sacral fracture;Other: RESULT: CT 3D Rend W/O Post Proc CT Pelvis W/O Contrast, CT 3D Rend W/O Post Proc Reason: Pain; Clinical Question(s): Other:; Sacral fracture; Special Instructions: Eval sacral fracture; TECHNIQUE: Spiral CT without IV contrast through the pelvis only formatted in 3 planes. Enteric contrast was not administered. Complex multiplanar 2-D and 3-D reformations were performed on an outside, independent workstation under the direct supervision of the radiologist. Automatic tube modulation and/or iterative dose reconstruction were used to optimize exposure parameters. CTDIvol Body: 4.50 mGy, DLP Body: 184 mGy*cm. COMPARISON: None FINDINGS: Cook Helper Vegetable View Findings, Lines and Tubes: None. Bone and joints: There is an acute oblique fracture extending through the S3 sacral segment withoutsignificant displacement. Additionally, there is slight angulation of the anterior cortex of the [id number] segment, which may reflect sequela of prior trauma. Soft tissues: There is generalized decreased muscle bulk with more focal fatty atrophy of both gluteus minimus muscles. There is severe diverticulosis of the sigmoid colon. Mild stool retention. The visualized portion of the inferior right hepatic lobe, include gallbladder and lower pole of the right kidney are unremarkable. Mild scattered atherosclerotic vascular calcifications are seen. IMPRESSION: Acute nondisplaced oblique fracture through the S3 sacral segment. WSN: [id number] Ordering Physician: Zach Santos Dictated By: Rhea Martin MD Dictated Date/Time: 07/02/23 5:33 pm Reviewed By: Rhea Martin MD Signed By: Rhea Martin MD Signed Date/Time: 07/02/23 5:33 pm Transcribed By: SHARON Transcribed Date/Time: 07/02/23 5:25 pm * Exam Date Time Procedure Performing Provider Status 07/02/23 1:[address] Pelvis W/O Contrast Julien Doyle ne; Auth (Verified) Notes: (CT Pelvis W/O Contrast) Reason For Exam: Pain RESULT: CT Pelvis W/O Contrast CT Pelvis W/O Contrast, CT 3D Rend W/O Post Proc Reason: Pain; Clinical Question(s): Other:; Sacral fracture; Special Instructions: Eval sacral fracture; TECHNIQUE: Spiral CT without IV contrast through the pelvis only formatted in 3 planes. Enteric contrast was not administered. Complex multiplanar 2-D and 3-D reformations were performed on an outside, independent workstation under the direct supervision of the radiologist. Automatic tube modulation and/or iterative dose reconstruction were used to optimize exposure parameters. CTDIvol Body: 4.50 mGy, DLP Body: 184 mGy*cm. COMPARISON: None FINDINGS: Cook Helper Vegetable View Findings, Lines and Tubes: None. Bone and joints: There is an acute oblique fracture extending through the S3 sacral segment withoutsignificant displacement. Additionally, there is slight angulation of the anterior cortex of the [id number] segment, which may reflect sequela of prior trauma. Soft tissues: There is generalized decreased muscle bulk with more focal fatty atrophy of both gluteus minimus muscles. There is severe diverticulosis of the sigmoid colon. Mild stool retention. The visualized portion of the inferior right hepatic lobe, include gallbladder and lower pole of the right kidney are unremarkable. Mild scattered atherosclerotic vascular calcifications are seen. IMPRESSION: Acute nondisplaced oblique fracture through the S3 sacral segment. WSN: [id number] Ordering Physician: Zach Santos Dictated By: Rhea Martin MD Dictated Date/Time: 07/02/23 5:33 pm Reviewed By: Rhea Martin MD Signed By: Rhea Martin MD Signed Date/Time: 07/02/23 5:33 pm Transcribed By: SHARON Transcribed Date/Time: 07/02/23 5:25 pm * Exam Date Time Procedure Performing Provider Status 07/02/23 2:20 PM Sacrum and Coccyx Min 2 Views Roni , Dacia; Auth (Verified) Notes: (Sacrum and Coccyx Min 2 Views) Reason For Exam: Pain RESULT: Sacrum and Coccyx Min 2 Views Sacrum and coccyx 3 views dated July 02, 2023. No prior studies are available. HISTORY: Pain. FINDINGS: Today's study is limited as the sacrum is a crosstable lateral This examination shows no evidence of fracture or dislocation. IMPRESSION: Limited study showing no evidence of fracture or dislocation. Further evaluation can be performed with a CT, as conically needed. Thank you for allowing me to participate in the care of this patient. WSN: [id number] Ordering Physician: Zach Santos Dictated By: Antonio Quezada MD Dictated Date/Time: 07/02/23 4:30 pm Reviewed By: Antonio Quezada MD Signed By: Antonio Quezada MD Signed Date/Time: 07/02/23 4:30 pm Transcribed By: SHARON Transcribed Date/Time: 07/02/23 4:30 pm * Exam Date Time Procedure Performing Provider Status 07/02/23 2:20 PM Pelvis Min 3 Views Roni , Dacia; Aut h (Verified) Notes: (Pelvis Min 3 Views) Reason For Exam: Pain RESULT: Pelvis Min 3 Views Pelvis 3 views dated July 02, 2023. Comparison films are unavailable. HISTORY: Pain. FINDINGS: This examination shows no evidence of fracture or dislocation. Joint spaces are fairly well-preserved. Probable rectal tube. IMPRESSION: No evidence of fracture or dislocation. Probable rectal tube in place. Thank you for allowing me to participate in the care of this patient. WSN: [id number] Ordering Physician: Zach Santos Dictated By: Antonio Quezada MD Dictated Date/Time: 07/02/23 4:28 pm Reviewed By: Antonio Quezada MD Signed By: Antonio Quezada MD Signed Date/Time: 07/02/23 4:28 pm Transcribed By: SHARON Transcribed Date/Time: 07/02/23 4:28 pm * Exam Date Time Procedure Performing Provider Status 07/01/23 11:07 PM MRI Lumbar Spine W/O Contrast Kelsea Perez; Kwabena (Verified) Notes: (MRI Lumbar Spine W/O Contrast) Reason For Exam: Low back pain, cauda equina syndrome suspected;Other: RESULT: MRI Lumbar Spine W/O Contrast MRI Lumbar Spine W/O Contrast INDICATION: Hx of Present Illness: [place] [facility] and dx with L3 fx. Pt has positive CMS to all extremities, a ox4.; Reason: Other:; Low back pain, cauda equina syndrome suspected;Clinical Question(s): Cord Cauda Equina Compression; Order Comment: Please see Reference Text for complete list of contraindications Cord/Cauda Equina Compression TECHNIQUE: MRI of the lumbar spine was performed without intravenous contrast utilizing sagittal T1, sagittal T2, sagittal STIR, axial T1, and axial T2- weighted sequences. COMPARISON: No prior studies are available for comparison at the time of interpretation. FINDINGS: LOCALIZER: On the sagittal localizer images, there is a posterior disc herniation at C4-C5 with mild to mild-moderate central canal narrowing. * There is a burst fracture of the T9 vertebral body with moderate loss of height and slight anterior and posterior displacement of bone. No suspected epidural hematoma or cord compression. NUMBERING: The study assumes 5 [id number]-arf-[id number] lumbar type vertebral bodies. ALIGNMENT, VERTEBRAE, MARROW, AND DISCS: Mild degenerative anterolisthesis of L2 on L3 through L5 on S1. A mild chronic compression fracture of L3 is present without retropulsion of bone. Mild chronic loss of height of the L2 vertebral body is present in conjunction with a prominent Schmorl's node extending through the inferior endplate. No lumbar marrow edema or spondylolysis. No significant loss of lumbar disc space height. Marginal spurring at L2-L3 and L3-L4. Multilevel facet arthroses. CONUS: The conus is normal in signal and contour, with normal level of termination at L1. PARASPINAL TISSUES: No acute retroperitoneal abnormality. * Diffuse patchy STIR bright signal of the sacrum is noted on the sagittal STIR images. Irregularity of the S2, S3, and S4 sacral vertebrae are noted on the sagittal images. Layering mild T2 hypointense signal is noted upper sacral canal through S1-S2 compatible with subarachnoid hemorrhage. Heterogeneous T1 and T2 bright signal is noted within the right posterior epidural space at S2, which is compatible with subacute blood products. This measures up to 14 mm on the axial images and indents the right thecal sac. Diverticulosis of the sigmoid colon. DETAILED FINDINGS BY LEVEL: L1-L2: Small central disc protrusion with mild central canal narrowing. No foraminal stenosis. L2-L3: Concentric disc-osteophyte complex and mild facet arthrosis and ligamentum flavum infolding.Minimal central canal narrowing. Mild right and mild-moderate left foraminal narrowing. L3-L4: Mild broad-based posterior disc bulge, facet arthrosis, and ligamentum flavum infolding. Mild right central canal narrowing. Mild right and no left foraminal narrowing. L4-L5: Facet arthrosis, ligamentum flavum infolding, and mild degenerative anterolisthesis. Minimalcentral canal narrowing. Mild to mild-moderate right and mild left foraminal narrowing. L5-S1: Facet arthrosis. No central canal or foraminal stenosis. IMPRESSION: 1. There is heterogeneous T1 hypointense and STIR bright signal of the sacrum on the sagittal images, which are suspicious for fractures given the history of a recent fall. 2. Layering T2 hypointense signal is noted within the sacral canal which is compatible with subarachnoid hemorrhage. T1 and T2 bright signal within the posterior epidural space at S2 narrows the thecal sac and is compatible with subacute hemorrhage. 3. Mild chronic compression fractures of L2 and L3. No acute compression fracture of the lumbar spine. 4. On the sagittal localizer images, there is an age-indeterminate burst fracture of T9 without significant retropulsion of bone. This can be correlated with any pain in the lower thoracic region. CTor MRI of the thoracic spine can also be obtained for further evaluation. A preliminary report was issued to the emergency room by the [facility] service 07/01/2023 at 11:28 PM. This did not note the finding in impression #4. A critical results message will be sent. An actionable message ([place]) has been communicated via the [employer] system on 07/02/2023 9:37 AM, Message ID [id number]. WSN: [id number] Ordering Physician: May Morel Dictated By: Daniel Farah MD Dictated Date/Time: 07/02/23 9:37 am Reviewed By: Danile Farah MD Signed By: Daniel Farah MD Signed Date/Time: 07/02/23 9:37 am Transcribed By: SHARON Transcribed Date/Time: 07/02/23 9:22 am * Exam Date Time Procedure Performing Provider Status 07/01/23 11:[address] Cervical Spine W/O Contrast Analilia Gold; Auth (Verified) Notes: (CT Cervical Spine W/O Contrast) Reason For Exam: Neck trauma, dangerous injury mechanism;Other: RESULT: CT Cervical Spine W/O Contrast CT Head/Brain W/O Contrast, CT Cervical Spine W/O Contrast INDICATION: Reason: Trauma; Clinical Question(s): Hematoma; Order Comment: TECHNIQUE: Noncontrast head CT using axial technique was reconstructed in axial and coronal planes.Noncontrast spiral CT through the cervical spine was formatted in 3 planes. Automatic tube modulation was used for the cervical spine and iterative dose reconstruction was used for both the head and cervical spine to optimize scan parameters and image quality. CTDIvol Body: 6.90 mGy, DLP Body: 174 mGy*cm. CTDIvol Head: 39.60 mGy, DLP Head: 672 mGy*cm. COMPARISON: None. FINDINGS: Cook Helper Vegetable View Findings, Lines and Tubes: None. BRAIN AND EXTRA-AXIAL SPACES: No parenchymal hemorrhage, midline shift, or mass effect. Garvey-white matter differentiation is wellpreserved. No acute infarct. Ventricles, sulci, and basilar cisterns are normal. No white matter lesions. No subarachnoid hemorrhage. No subdural or epidural collection. CALVARIUM, SKULL BASE, AND SOFT TISSUES: No fractures or suspicious bony lesions. Moderate to severe diffuse paranasal sinus mucosal thickening. The mastoid air cells are clear. Visualized orbits and globes are intact. The extracranial soft tissues are unremarkable. CERVICAL SPINE: No fracture. No acute osseous abnormalities. Normal alignment. No locked or perched facet. Moderate multilevel degenerative disc space narrowingand end plate irregularity. Small to moderate disc annulus bulge at C4-5.. OTHER BONES: No acute abnormality. CERVICAL SOFT TISSUES AND LUNG APICES: Normal soft tissues. Extensive biapical scarring and mucosal plugging within distal bronchioles. Normal thyroid. IMPRESSION: No acute abnormality of the head or cervical spine. Pansinusitis. Extensive biapical scarring and mucosal plugging within distal bronchioles. I have personally reviewed the images and I agree with this report. WSN: [id number] Ordering Physician: May Morel Dictated By: Helen Haddad MD Dictated Date/Time: 07/02/23 6:26 am Reviewed By: Antonio Quezada MD Signed By: Antonio Quezada MD Signed Date/Time: 07/02/23 6:31 am Transcribed By: SHARON Transcribed Date/Time: 07/02/23 0:10 am * Exam Date Time Procedure Performing Provider Status 07/01/23 11:[address] Head/Brain W/O Contrast Lorenzo Gold da; Auth (Verified) Notes: (CT Head/Brain W/O Contrast) Reason For Exam: Trauma RESULT: CT Head/Brain W/O Contrast CT Head/Brain W/O Contrast, CT Cervical Spine W/O Contrast INDICATION: Reason: Trauma; Clinical Question(s): Hematoma; Order Comment: TECHNIQUE: Noncontrast head CT using axial technique was reconstructed in axial and coronal planes.Noncontrast spiral CT through the cervical spine was formatted in 3 planes. Automatic tube modulation was used for the cervical spine and iterative dose reconstruction was used for both the head and cervical spine to optimize scan parameters and image quality. CTDIvol Body: 6.90 mGy, DLP Body: 174 mGy*cm. CTDIvol Head: 39.60 mGy, DLP Head: 672 mGy*cm. COMPARISON: None. FINDINGS: Cook Helper Vegetable View Findings, Lines and Tubes: None. BRAIN AND EXTRA-AXIAL SPACES: No parenchymal hemorrhage, midline shift, or mass effect. Garvey-white matter differentiation is wellpreserved. No acute infarct. Ventricles, sulci, and basilar cisterns are normal. No white matter lesions. No subarachnoid hemorrhage. No subdural or epidural collection. CALVARIUM, SKULL BASE, AND SOFT TISSUES: No fractures or suspicious bony lesions. Moderate to severe diffuse paranasal sinus mucosal thickening. The mastoid air cells are clear. Visualized orbits and globes are intact. The extracranial soft tissues are unremarkable. CERVICAL SPINE: No fracture. No acute osseous abnormalities. Normal alignment. No locked or perched facet. Moderate multilevel degenerative disc space narrowingand end plate irregularity. Small to moderate disc annulus bulge at C4-5.. OTHER BONES: No acute abnormality. CERVICAL SOFT TISSUES AND LUNG APICES: Normal soft tissues. Extensive biapical scarring and mucosal plugging within distal bronchioles. Normal thyroid. IMPRESSION: No acute abnormality of the head or cervical spine. Pansinusitis. Extensive biapical scarring and mucosal plugging within distal bronchioles. I have personally reviewed the images and I agree with this report. WSN: [id number] Ordering Physician: May Morel Dictated By: Helen Haddad MD Dictated Date/Time: 07/02/23 6:26 am Reviewed By: Antonio Quezada MD Signed By: Antonio Quezada MD Signed Date/Time: 07/02/23 6:31 am Transcribed By: SHARON Transcribed Date/Time: 07/02/23 0:10 am Vital Signs Most recent to oldest [Reference Range]: 1 2 3 Height 161 cm (07/05/23 11:44 AM) 161 cm (07/04/23 11:33 AM) 161 cm (07/04/23 11:31 AM) Weight 34.2 kg (07/02/23 3:17 AM) Oxygen Saturation [94-100 %] 94 % (07/05/23 11:44 AM) 95 % (07/05/23 7:00 AM) 100 % (07/05/23 3:00 AM) Pulse Rate [55-90 bpm] 91 bpm *H* (07/05/23 11:44 AM) 87 bpm (07/05/23 7:00 AM) 84 bpm (07/05/23 3:00 AM) Body Mass Index [18.5-24.99 kg/m2] 13.19 kg/m2 *L* (07/02/23 3:17 AM) Blood Pressure [90-138/55-84 mm Hg] 128/79mm Hg (07/05/23 11:44 AM) 128/74mm Hg (07/05/23 7:00 AM) 115/82mm Hg (07/05/23 3:00 AM) Respiratory Rate [16-30 br/min] 18 br/min (07/05/23 11:44 AM) 18 br/min (07/05/23 10:48 AM) 18 br/min (07/05/23 7:00 AM) Temperature [96.8-100.4 DegF] 97.8 DegF (07/05/23 11:44 AM) 97.8 DegF (07/05/23 7:00 AM) 97.5 DegF (07/05/23 3:00 AM) Liters per Minute 2 L/min (07/05/23 7:00 AM) 2 L/min (07/05/23 3:00 AM) 2 L/min (07/04/23 11:00 PM) Mode of Delivery (Oxygen) Room air (07/05/23 11:44 AM) Nasal cannula (07/05/23 7:00 AM) Nasal cannula (07/05/23 3:00 AM) Blood pressure sites Arm, right (07/05/23 11:44 AM) Arm, left (07/05/23 7:00 AM) Arm, right (07/05/23 3:00 AM) Temperature Route Oral (07/05/23 11:44 AM) Oral (07/05/23 7:00 AM) Oral (07/05/23 3:00 AM) Dry Weight 34.2 kg (07/02/23 3:17 AM) Social History Social History Type Response Smoking Status Never smoker entered on: 08/24/17 Sex Consult note * Anna Milan: PERFORM Event Display: Consultation Note Authored Date: [id number] Patient: ??SUDHIR MOORE ? Age:??77 Years?Sex:??Female?:??1945?? This is a 77 y/o female transferred from [facility] after a fall.?? She suffered a T9 fracture without spinal cord injury and has age-indeterminate lumbar fractures without concern for cauda equina syndrome; she has been seen by Neurosurgery and is being followed by PMR.?? Orthopedics was consulted for possible S1-S4 fractures.?? MRI and CT imaging reviewed by attending surgeon.?? Fractures noted at S2/S3, non-displaced and without pelvic dissociation.?? No acute operative Orthopedic intervention indicated.?? She may WBAT B/L LE from Orthopedic perspective.?? She may follow-up with Dr. Santos upon discharge in approximately 2 weeks, [facility] Dayana duncan [place], [place] .?? Please page [phone] with any further Orthopedic questions/concerns. * Fuentes Peterson MD: MODIFY, MODIFY, PERFORM, MODIFY, MODIFY, MODIFY Event Display: Consult Authored Date: Patient: ??SUDHIR MOORE ? Age:??77 Years?Sex:??Female?:??1945?? Chief Complaint/Reason for Consult [place] [facility] m[place], dx with L3 fx. needs neuro consult. History of Present Illness Patient is a 77-year-old female with a past medical history of COPD on 2 L home O2, type 2 diabetes, failure to thrive with a dry weight of 34 kg who presented as a transfer from [facility] after a fall from standing.?? The patient fell on 06/28 from ground-level.?? The patient did not lose any consciousness or blackout.?? She does report that she hit her head.?? Imaging was done at [place] with a CT?? pelvis that revealed no significant injury of the viscera however there was evidence of spondylosis and left sided protrusion at L1 and L2 with mild central canal stenosis from L2-L4and mild to moderate central canal stenosis and foraminal narrowing from L4 and L5, and L3 compressi on fracture.?? The patient did have positive neurologic symptoms including perineal numbness.?? Dueto concern for spinal injury the patient was transported to [facility] for neurosurgical consultation.?? Neurosurgery was consulted on 07/01.?? The patient was subsequently worked up witha CT of the head and cervical spine that did not reveal any acute injuries.?? Neurosurgery recommended his MRI of the lumbar spine.?? This imaging revealed a sacral fracture as well as evidence of subarachnoid hemorrhage within the posterior epidural space at the level of S2.?? The MRI also revealed mild chronic compression fractures of L2 and L3 but no acute compression fractures of lumbar spine.?? There is also evidence of age-indeterminate burst fracture of T9 without significant retropulsion of the bone and the patient is scheduled for a dedicated CT of the thoracic spine for this finding.?? On laboratory findings the patient has a elevated white count at 13.4 and electrolytes show a elevated blood glucose in the 200s but no other significant derangements.?? The patient was admitted to the medicine service with PMNR consultation as well as neurosurgical consultation following.revealed Review of Systems Constitutional: No weight loss, fever, chills, weakness or fatigue. Eyes: No visual loss, blurred vision, double vision?? ENT: No hearing loss, sneezing, congestion, runny nose or sore throat. Respiratory: No shortness of breath, cough Cardiovascular: No chest pain, chest pressure or chest discomfort. Gastrointestinal: No nausea, vomiting or diarrhea. No abdominal pain or blood in stool. Genitourinary: No burning micturition. No urinary frequency or incontinence. Neurologic: No headache, dizziness, syncope, unilateral weakness. Musculoskeletal: No muscle pain, back pain, joint pain or stiffness. Skin: No rash or itching. Psychiatric: No depression or anxiety.?? Physical Exam Vitals & Measurements T:??98.4?F?? HR:??88??(Peripheral)?? RR:??18?? BP:??128/86?? SpO2:??96%?? HT:??161??cm?? WT:??34.2??kg?? BMI:??13.19?General: no acute distress, alert, awake. ?Head: normocephalic, atraumatic, no hematomas, no abrasions, no wounds, no deformities ?Face: no ecchymosis, no abrasions, no wounds ?Eyes: pupils are 3mm, equal, round, and reactive; extraocular movement intact ?Ears: no hemotympanum, no blood in external auditory canal, no abrasions ?Nose: no epistaxis, no deformity ?Mandible: no deformity, no malocclusion ?Neck: in place, no hematoma, no ecchymosis, no wounds, trachea midline ?Chest: symmetric, no deformity, sternum, chest wall, and clavicles are nontender to palpation, no crepitus appreciated ?Heart: regular rate and rhythm ?Lungs: clear to auscultation bilaterally ?Abdomen: soft,??mild distention but non tender ?Pelvis: stable,??Reports pelvic pain ?Back: no ecchymosis, no abrasions, no hematoma, no wounds. ?Cervical spine: no midline deformities or stepoffs, no tenderness ?Thoracic spine: no midline deformities or stepoffs, no tenderness. ?Lumbar spine: no midline deformities or stepoffs, no tenderness ?Extremities: no long bone deformities, no wounds, no abrasions, no ecchymosis, no hematomas, full active range of motion ?Neurologic: GCS15. Strength is 5/5 in upper and lower extremities bilaterally. ??Sensation is intact to light touch in all major nerve distributions of upper and lower extremities bilaterally. ??Cranial nerves II- XII are intact and symmetric. No complaints of??saddle anesthesia, patient repo rts this has improved. ?Vascular: palpable dorsalis pedis and radial pulses bilaterally ? Assessment/Plan Patient is a 77-year-old female with a past medical history of COPD on 2 L home O2, type 2 diabetes, failure to thrive with a dry weight of 34 kg who presented as a transfer from [facility] after a fall from standing. CT pelvis that revealed no significant injury of the viscera however there was evidence of spondylosis and left sided protrusion at L1 and L2 with mild central canal sten osis from L2-L4 and mild to moderate central canal stenosis and foraminal narrowing from L4 and L5,and L3 compression fracture. Imaging revealed a sacral fracture as well as evidence of subarachnoidhemorrhage within the posterior epidural space at the level of S2.?? The MRI also revealed mild chronic compression fractures of L2 and L3 but no acute compression fractures of lumbar spine.??CT of the pelvis confirmed an??acute nondisplaced oblique fracture through the S3 sacral segment for which ortho is following.??There is also evidence of age-indeterminate burst fracture of T9 without significant retropulsion of the bone and the patient is scheduled for a dedicated CT of the thoracic spinefor this finding. ?? Consultants: DIVYA: No surgical intervention for the Sacral SAH PMR: appreciate recs ORTHO: pending final recs ?? Injuries: Acute nondisplaced oblique fracture through the S3 sacral segment. Sacral canal subarachnoid hemorrhage. Acute or subacute T9 fracture with mild retropulsion ? Recommendations: ???Follow-up??CT and MRI??of thoracic spine reads ???Maintain spinal??log roll precaution until the NSG team has weighed in about the thoracic compression fx. ???Pain control??as needed ?Ortho consultation for the sacral fracture found on MRI and CT; f/u their final recs ?Clarify from neurosurgery when it is safe to resume??prophylactic anticoagulation given the sacral subarachnoid hemorrhage and her likely prolong immobility. ???When appropriate??and??weightbearing status??provided by trauma Ortho??patient will need PT evaluation??to help with mobilization ???Agree with??PMNR consultation ???No further??injuries identified on??trauma??evaluation. ? Case discussed with Dr. Li Trauma [id number] Problem List/Past Medical History Ongoing Underweight COPD DMII FTT Procedure/Surgical History No qualifying data available. Prior??inguinal hernia repair Home Medications Ascorbic Acid Biotin: By Mouth, Daily Calcium Acetate: 2,001 mg, By Mouth, 3 times a day Cyanocobalamin Durable Medical Equipment: See Instructions, TEST BLOOD GLUCOSE TWICE DAILY DIRECTED Durable Medical Equipment: See Instructions, TEST BLOOD GLUCOSE TWICE DAILY DIRECTED Durable Medical Equipment: See Instructions, use to check blood sugar one time [id number] Durable Medical Equipment (One touch delica lancets extra fine 33g): See Instructions, use to test BG daily E11.9 Flax: By Mouth, Daily Lutein: By Mouth, Daily Magnesium Carbonate Metformin: 500 mg = 1 tablet, By Mouth, 3 times a day, one with each meale11.9 Miscellaneous Rx: Daily Miscellaneous Rx Miscellaneous Rx (Magnesium) Multivitamin: By Mouth, Daily Vitamin E: By Mouth, Daily Allergies Versed??( flat lined ) sulfADIAZINE??( strange feeling all over my body , kind of like a hot feeling ) Social History Tobacco Never smoker Family History No family history recorded. No known history of clotting disorders in the family Radiology RESULT: CT Cervical Spine W/O Contrast CT Head/Brain W/O Contrast, CT Cervical Spine W/O Contrast? INDICATION: Reason: Trauma; Clinical Question(s): Hematoma; Order Comment: ?? TECHNIQUE: Noncontrast head CT using axial technique was reconstructed in axial and coronal planes.Noncontrast spiral CT through the cervical spine was formatted in 3 planes. Automatic tube modulation was used for the cervical spine and iterative dose reconstruction was used for both the head and cervical spine to optimize scan parameters and image quality. ? CTDIvol Body: 6.90 mGy, ??DLP Body: 174 mGy*cm. ? CTDIvol Head: 39.60 mGy, DLP Head: 672 mGy*cm. ? COMPARISON: None. ?? FINDINGS:? Cook Helper Vegetable View Findings, Lines and Tubes: None. ?? BRAIN AND EXTRA-AXIAL SPACES: No parenchymal hemorrhage, midline shift, or mass effect. Garvey-white matter differentiation is wellpreserved. No acute infarct. ?? Ventricles, sulci, and basilar cisterns are normal.? No white matter lesions. ?? No subarachnoid hemorrhage. No subdural or epidural collection. ?? CALVARIUM, SKULL BASE, AND SOFT TISSUES: No fractures or suspicious bony lesions.? Moderate to severe diffuse paranasal sinus mucosal thickening. The mastoid air cells are clear. ?? Visualized orbits and globes are intact.? The extracranial soft tissues are unremarkable. ?? CERVICAL SPINE:?? No fracture. No acute osseous abnormalities. ?? Normal alignment. No locked or perched facet. Moderate multilevel degenerative disc space narrowingand end plate irregularity. Small to moderate disc annulus bulge at C4-5.. ?? OTHER BONES:?? No acute abnormality. ?? CERVICAL SOFT TISSUES AND LUNG APICES:?? Normal soft tissues. Extensive biapical scarring and mucosal plugging within distal bronchioles. Normal thyroid. ?? IMPRESSION: ?? No acute abnormality of the head or cervical spine. Pansinusitis. Extensive biapical scarring and mucosal plugging within distal bronchioles. ?? I have personally reviewed the images and I agree with this report. ?? RESULT: MRI Lumbar Spine W/O Contrast MRI Lumbar Spine W/O Contrast ?? INDICATION: ??Hx of Present Illness: [place] [facility] monday and dx with L3 fx. Pt has positive CMS to all extremities, a ox4.; Reason: Other:; Low back pain, cauda equina syndrome suspected; Clinical Question(s): Cord Cauda Equina Compression; Order Comment: Please see Reference Text forcomplete list of contraindications ??Cord/Cauda Equina Compression ?? TECHNIQUE: MRI of the lumbar spine was performed without intravenous contrast utilizing sagittal T1, sagittal T2, sagittal STIR, axial T1, and axial T2- weighted sequences. ?? COMPARISON: No prior studies are available for comparison at the time of interpretation. ?? FINDINGS:? LOCALIZER: On the sagittal localizer images, there is a posterior disc herniation at C4-C5 with mild to mild-moderate central canal narrowing. ?? * ??There is a burst fracture of the T9 vertebral body with moderate loss of height and slight anterior and posterior displacement of bone. No suspected epidural hematoma or cord compression. ?? NUMBERING: The study assumes 5 [id number] lumbar type vertebral bodies. ?? ALIGNMENT, VERTEBRAE, MARROW, AND DISCS: Mild degenerative anterolisthesis of L2 on L3 through L5 on S1. A mild chronic compression fracture of L3 is present without retropulsion of bone. Mild chronic loss of height of the L2 vertebral body is present in conjunction with a prominent Schmorl's node extending through the inferior endplate. No lumbar marrow edema or spondylolysis. No significant loss of lumbar disc space height. Marginal spurring at L2-L3 and L3-L4. Multilevel facet arthroses. ?? CONUS: The conus is normal in signal and contour, with normal level of termination at L1.? PARASPINAL TISSUES: No acute retroperitoneal abnormality. ?? * ??Diffuse patchy STIR bright signal of the sacrum is noted on the sagittal STIR images. Irregularity of the S2, S3, and S4 sacral vertebrae are noted on the sagittal images. Layering mild T2 hypointense signal is noted upper sacral canal through S1-S2 compatible with subarachnoid hemorrhage. Heterogeneous T1 and T2 bright signal is noted within the right posterior epidural space at S2, which iscompatible with subacute blood products. This measures up to 14 mm on the axial images and indents the right thecal sac. ? Diverticulosis of the sigmoid colon. ? DETAILED FINDINGS BY LEVEL: ?? L1-L2: Small central disc protrusion with mild central canal narrowing. No foraminal stenosis. ?? L2-L3: Concentric disc-osteophyte complex and mild facet arthrosis and ligamentum flavum infolding.Minimal central canal narrowing. Mild right and mild-moderate left foraminal narrowing. ?? L3-L4: Mild broad-based posterior disc bulge, facet arthrosis, and ligamentum flavum infolding. Mild right central canal narrowing. Mild right and no left foraminal narrowing. ?? L4-L5: Facet arthrosis, ligamentum flavum infolding, and mild degenerative anterolisthesis. Minimalcentral canal narrowing. Mild to mild-moderate right and mild left foraminal narrowing. ?? L5-S1: Facet arthrosis. No central canal or foraminal stenosis. ? IMPRESSION: ?? 1. There is heterogeneous T1 hypointense and STIR bright signal of the sacrum on the sagittal images, which are suspicious for fractures given the history of a recent fall.? 2. Layering T2 hypointense signal is noted within the sacral canal which is compatible with subarachnoid hemorrhage. T1 and T2 bright signal within the posterior epidural space at S2 narrows the thecal sac and is compatible with subacute hemorrhage. ?? 3. Mild chronic compression fractures of L2 and L3. No acute compression fracture of the lumbar spine. ?? 4. On the sagittal localizer images, there is an age-indeterminate burst fracture of T9 without significant retropulsion of bone. This can be correlated with any pain in the lower thoracic region. CTor MRI of the thoracic spine can also be obtained for further evaluation. ?? A preliminary report was issued to the emergency room by the [facility] service 07/01/2023 at 11:28 PM. This did not note the finding in impression #4. A critical results message will be sent. ?? RESULT: CT Pelvis W/O Contrast CT Pelvis W/O Contrast, CT 3D Rend W/O Post Proc? Reason: Pain; Clinical Question(s): Other:; Sacral fracture; Special Instructions: Eval sacral fracture;? TECHNIQUE: Spiral CT without IV contrast through the pelvis only formatted in 3 planes. Enteric contrast was not administered. Complex multiplanar 2-D and 3-D reformations were performed on an outside, independent workstation under the direct supervision of the radiologist. Automatic tube modulation and/or iterative dose reconstruction were used to optimize exposure parameters.? CTDIvol Body: 4.50 mGy, ??DLP Body: 184 mGy*cm. ? COMPARISON: None ?? FINDINGS:? Cook Helper Vegetable View Findings, Lines and Tubes: None. ?? Bone and joints: There is an acute oblique fracture extending through the S3 sacral segment withoutsignificant displacement. Additionally, there is slight angulation of the anterior cortex of the C0srmsvs segment, which may reflect sequela of prior trauma. ?? Soft tissues: There is generalized decreased muscle bulk with more focal fatty atrophy of both gluteus minimus muscles. There is severe diverticulosis of the sigmoid colon. Mild stool retention. The visualized portion of the inferior right hepatic lobe, include gallbladder and lower pole of the right kidney are unremarkable. Mild scattered atherosclerotic vascular calcifications are seen. ?? IMPRESSION:? Acute nondisplaced oblique fracture through the S3 sacral segment. ?? Lab Results Labs Last 24 Hours BLOOD COUNT & DIFF ? Event Name?? Event Result?? Date/Time?? WBC 13.4 k/mm3??High 07/02/23 07:14:00 RBC 4.71 m/mm3 07/02/23 07:14:00 Hgb 13.8 Gm/dL 07/02/23 07:14:00 Hct 42.4 % 07/02/23 07:14:00 MCV 90 femtoliters 07/02/23 07:14:00 MCH 29.3 pg 07/02/23 07:14:00 MCHC 32.5 g/dL??Low 07/02/23 07:14:00 Platelet Count 327 k/mm3 07/02/23 07:14:00 MPV 9.2 femtoliters??Low 07/02/23 07:14:00 Nucleated RBC (Automated) 0 #/100 WBC'S 07/02/23 07:14:00 ? CHEM GENERAL ? Event Name?? Event Result?? Date/Time?? Sodium 139 mmol/L 07/01/23 23:43:00 Chloride 98 mmol/L 07/01/23 23:43:00 Bicarbonate Level 31 mmol/L??High 07/01/23 23:43:00 Anion Gap 10 07/01/23 23:43:00 Glucose Level 130 mg/dL??High 07/01/23 23:43:00 BUN 23 mg/dL 07/01/23 23:43:00 Creatinine-Blood 0.6 mg/dL 07/01/23 23:43:00 Magnesium 1.8 mg/dL 07/01/23 23:43:00 Alkaline Phosphatase 153 units/L??High 07/01/23 23:43:00 AST (SGOT) 17 units/L 07/01/23 23:43:00 ALT (SGPT) 14 units/L 07/01/23 23:43:00 Bilirubin, Total 0.5 mg/dL 07/01/23 23:43:00 ? * Filemon VALENTINO, Jos éMiguel: MODIFY, PERFORM Event Display: Consultation Note Authored Date: Patient: ??SUDHIR MOORE ? Age:??77 Years?Sex:??Female?:??1945?? Chief Complaint/Reason for Consult pt [place] [facility]. fell monday, dx with L3 fx. needs neuro consult. History of Present Illness Ms. Moore is a 77-year-old female with history of type II DM, failure to thrive, and COPD on intermittent 2 L home O2. She presented to [facility] after a fall at home.??Patient reports sustaining a ground-level mechanical fall on 06/28.??She thinks she may have hit her head, does not think she lost consciousness.?? Imaging at [facility] included CXR (no rib fractures), CT abdomen/pelvis (unremarkable).?? CT lumbar spine revealed multiple levels of spondylosis, left paracentral disc protrusion at L1-L2, mild central canal stenosis at L2-L3 and L3-L4, severe facet arthropathy at L5-S1,and mild to moderate central canal stenosis and foraminal narrowing at L4-L5.?? Patient reported some perianal numbness and difficulty moving her bowels since the fall, raising concern for cauda equina syndrome and prompting transfer to [facility].??Neurosurgery who recommended MRI and head imaging.? CT head shows no acute intracranial process (discussed with on-call radiologist).?? MRI lumbar spine reveals hyperintense marrow edema within S1-S4 vertebral bodies and bilateral sacral ala concerning for acute fractures.?? Also with fluid levels within the sacral spinal canal and neural foramina consistent with mixed spinal subarachnoid and subdural hemorrhage, NO evidence of spinal cord compression.?L2 and L3??endplate compression fractures look to be chronic on MRI. ??There was also??aT9 burst fracture which could be old. ??The imaging results were discussed with neurosurgery who did not recommend any surgical intervention.? We are asked to see her regarding her fractures, pain and rehab plan. ?? She lives with her ??who??has some chronic illnesses and uses a cane.?? He has several steps to enter the home??and is on the first floor. Physical Exam Vitals & Measurements T:??98.2?F?? HR:??90??(Peripheral)?? RR:??19?? BP:??141/88?? SpO2:??91%?? HT:??161??cm?? WT:??34.2??kg?? BMI:??13.19?? General:??Alert.?? No apparent distress.?? Frail-appearing Psychiatric: Mood:??Normal.?? Pleasant & Cooperative Oriented X 3 ?? HEENT: Cranial Nerves II-XII:??Normal, no central facial droop.?? EOMI.? Visual bolanos: Grossly normal No diplopia or disconjugate gaze. ??No nystagmus. ?? Tracks:??Bilaterally ?? Extremities:?? Edema:??None.?? Passive ROM:??Normal all limbs.? Neurologic? Follows Commands:??1 step well Memory:??Grossly normal Language:??Normal. ??Dysarthria:??None. ??Dysphonia:??None.? Motor Exam:??Motor strength 4-/5??upper and lower extremities. ??Some coccyx/sacral pain??with leg movements against resistance.?? Sensory Exam: light touch??normal Coordination Exam:??Grossly normal Deep Tendon Reflexes decreased throughout ?? Spasticity Exam:??None.? Mobility Exam: Deferred due to pain??and awaiting confirmation that she can weight-bear as tolerated. Assessment/Plan 77-year-old frail??woman??with prior??wrist??and spine fractures??likely due to falls and osteoporosis??presenting with fractures as above??is nonfocal??except for the perianal numbness. ?? I have consulted??Ortho trauma. ??Formal consult pending.?? They have ordered pelvic x-ray and CT??and recommended nonweightbearing??for now. ?? Recommendations: ?? Activity:??Mobilize with PTonce cleared forout of bed Bowel Regimen:??I change the Senokot to 2 at night and ordered a as needed suppository. Bladder:??Bladder scan for post void residual Q shift X 3 to rule out retention. Straight cath if > 250 ml.. ??Orders entered. Cognition/psychopharmacology:??Essentially normal though a little bit vague on history.?? DVT prophylaxis:??Would start subcutaneous heparin or enoxaparin if no contraindications ?? Neurology:??Appreciate Neurosurgery Note. ?? Pain Management:??She is comfortable at rest. ??Continue current regimen. ??May need to increase opioids for mobility if pain is greatly limiting..? Spasticity:??None ?? Current rehab treatment & further recommendations: Occupational Therapy:??Can start in rehab.?? Should be seen here if??discharge home appears possible ?? Physical Therapy:??I removef the order pending??further information for orthopedics.?? Please order once she is cleared to weight-bear and has out of bed orders. ?? Disposition: Rehab versus home??depending on how she does with physical therapy (and her weightbearing status). Likely will need rehab. ?? Code Status:??Full Resuscitation HCP:??Has HCP in [facility] Problem List/Past Medical History Ongoing Underweight Procedure/Surgical History No qualifying data available. Home Medications Ascorbic Acid Biotin: By Mouth, Daily Calcium Acetate: 2,001 mg, By Mouth, 3 times a day Cyanocobalamin Durable Medical Equipment: See Instructions, TEST BLOOD GLUCOSE TWICE DAILY DIRECTED Durable Medical Equipment: See Instructions, TEST BLOOD GLUCOSE TWICE DAILY DIRECTED Durable Medical Equipment: See Instructions, use to check blood sugar one time [id number] Durable Medical Equipment (One touch delica lancets extra fine 33g): See Instructions, use to test BG daily E11.9 Flax: By Mouth, Daily Lutein: By Mouth, Daily Magnesium Carbonate Metformin: 500 mg = 1 tablet, By Mouth, 3 times a day, one with each meale11.9 Miscellaneous Rx: Daily Miscellaneous Rx Miscellaneous Rx (Magnesium) Multivitamin: By Mouth, Daily Vitamin E: By Mouth, Daily Hospital Medications Medications (15) Active SCHEDULED: (8) Acetaminophen 325 mg Tablet (Tylenol 325 mg oral tablet) ??975 mg, By Mouth, 3 times a day after meals Albuterol/Ipratropium Inhalation Madeline 3mL (Duoneb Inhalation Solution) ??1 vials, BAND Nebulizer, 4 times a day Influenza Quad Adult High Dose (> 65yr) Fluzone 0.7mL (Influenza, Quad High Dose Vaccine (Fluzone High Dose)) ??0.7 mL, Intramuscular, Once Insulin Lispro 100 units/mL Inj (3mL) (Insulin LISPRO Sliding Scale) ??2-10 units, Subcutaneous Injection, 3 times a day before meals OxyCODONE 5 mg IR Tablet (oxyCODONE 5 mg oral tablet) ??5 mg, By Mouth, Every 6 hours Polyethylene Glycol 17 Gm Powder (MiraLax Powder) ??17 Gm 1 pack/packet, By Mouth, Daily Senna Tablet (Senna 8.6 mg oral tablet) ??8.6 mg 1 tablet, By Mouth, Daily Vitamin D 1000 IU Tablet (Vitamin D3 1000 intl units oral tablet) ??1,000 International_Units, By Mouth, Daily CONTINUOUS: (0) PRN: (7) Al hydroxide/Mg hydroxide/simethicone 200 mg-200 mg-20 mg/5 mL Susp UD (Maalox Plus Liquid) ??30 mL, By Mouth, Every 4 hours Dextrose Inj Syringe (Dextrose 50% Inj Syringe (25Gm)) ??12.5 Gm, IV Push Slowly, Every 20 minutes Dextrose Inj Syringe (Dextrose 50% Inj Syringe (25Gm)) ??25 Gm, IV Push Slowly, Every 15 minutes Glucagon 1 mg Inj (Glucagon Inj) ??1 mg, Intramuscular, Once Glucose 40% Gel (15 Gm) (Glucose Gel) ??15 Gm, By Mouth, Every 20 minutes Glucose 40% Gel (15 Gm) (Glucose Gel) ??30 Gm, By Mouth, Every 20 minutes Magnesium Hydroxide 8% Susp UD (Milk of Magnesia Liquid) ??30 mL, By Mouth, Every 4 hours Lab Results PM&R Labs WBC:??13.4 k/mm3??High (07/02/23) Platelet Count: 327 k/mm3 (07/02/23) Sodium: 139 mmol/L (07/01/23) BUN: 23 mg/dL (07/01/23) Creatinine-Blood: 0.6 mg/dL (07/01/23) AST (SGOT): 17 units/L (07/01/23 23:43:00) ALT (SGPT): 14 units/L (07/01/23 23:43:00) * Jak INGRAM, Zac Li: PERFORM, MODIFY Event Display: Consultation Note Authored Date: Patient: ??SUDHIR MOORE ? Age:??77 Years?Sex:??Female?:??1945?? Provider Clinical Summary s/p fall L3 compression fx History of Present Illness ?? This is a 77-year-old female that was transferred from [facility] after presenting with complaint of back pain.?? According to patient she had fallen approximately 2 days prior after her right lower extremity gave out from under her.?? Patient did not seek any medical attention at that time however, her back pain was not improving thus, she presented to [facility] for further evaluation. CT lumbar spine indicate age indeterminate superior endplat??L3??compression fx.?? Patient reports constipation however she stated that she has taken laxative and had a bowel movement night prior to her presentation to the hospital.?? She reports urinary incontinence at baseline.?? She also stated that she has decreased sensation of her genitalia that she noted around the time of the fall.?? No reported bowel incontinence.?? She denies any radicular pain or new numbness of her extremities other than her existing numbness in her feet due diabetes she stated. Review of Systems see HPI Physical Exam Vitals & Measurements T:??98.1?F?? HR:??77??(Peripheral)?? RR:??20?? BP:??175/100?? SpO2:??94%? Physical Exam?? GENERAL:??In no apparent distress HEENT:??PERRL,Moist mucous membrane. Neck supple. 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 - EOMI?? -Following commands?? - Moving all extremities?? -Strength 5/5 bilat upper and lower extremity? -Sensation grossly intact?? -Patient refused genitalia and rectal examination GCS:15 ?? PSYCHIATRIC:??Calm and co-operative HEME:??No lymphadenopathy. SKIN:??Warm and dry. Assessment/Plan 77-year-old female status post fall reported age indeterminate superior endplate ??L3 compression fracture??with subjective perianal and genitalia numbness and baseline urinary incontinence. patient refused genitalia and rectal examination.? Recommendations Stat MRI of lumbar spine without contrast Further recs pending results Pain control Any questions page [id number] ? Attending Dr. Bee Total Time Spent ? including medical decision making of Low Complexity (20-29 minutes for established patient) Problem List/Past Medical History Ongoing Underweight Procedure/Surgical History No qualifying data available. Home Medications Ascorbic Acid Biotin: By Mouth, Daily Calcium Acetate: 2,001 mg, By Mouth, 3 times a day Cyanocobalamin Durable Medical Equipment: See Instructions, TEST BLOOD GLUCOSE TWICE DAILY DIRECTED Durable Medical Equipment: See Instructions, TEST BLOOD GLUCOSE TWICE DAILY DIRECTED Durable Medical Equipment: See Instructions, use to check blood sugar one time [id number] Durable Medical Equipment (One touch delica lancets extra fine 33g): See Instructions, use to test BG daily E11.9 Flax: By Mouth, Daily Gabapentin: 100 mg = 1 capsule, By Mouth, 3 times a day Lutein: By Mouth, Daily Magnesium Carbonate Metformin: 750 mg = 1 tablet, By Mouth, Daily Metformin: 750 mg = 1 tablet, By Mouth, Daily, Take with first meal of the day for T2DM. E11.9 Metformin: 500 mg = 1 tablet, By Mouth, 3 times a day, one with each meale11.9 Miscellaneous Rx: Daily Miscellaneous Rx Miscellaneous Rx (Magnesium) Multivitamin: By Mouth, Daily Vitamin E: By Mouth, Daily Allergies Versed??( flat lined ) sulfADIAZINE??( strange feeling all over my body , kind of like a hot feeling ) Social History Tobacco Never smoker Family History No family history recorded. * Zac Rahman: PERFORM Event Display: Consultation Note Authored Date: MRI lumbar spine reviewed by Attending Dr. Bee??no evidence to support cauda equinia syndrome. No neurosurgical intervention necessary regarding Vrad reading of sacral??SAH and SDH?? * Charles INGRAM, Melvin Fields: PERFORM Event Display: Consultation Note Authored Date: Paged earlier in day regarding finding of T9 burst fx noted on MRI lumbar athletic scout image. Difficult todetermine fx's influence on cord and evaluate posterior elements so MRI and CT t-spine requested for further eval while pt stays on logroll precautions. CT imaging completed and reviewed with attn ofrecord. On MRI - No significant cord compression and STIR sig in VB indicates fx is likely acute. On CT - posterior elements of T9 vertebrae without compromise. Pt may be off of log roll precautions and work with PT if necessary.??Further recs: Soft TLSO PRN comfort if pt has mid-back pain, especially with weight bearing; We will plan to f/u in outpt clinic in [address] t-spine. Pt should present to closest ED promptly for any new or worsening symptoms. Admission evaluation note * Chantal Lorenzo MD: MODIFY, PERFORM Event Display: Admission Note Authored Date: [id number] Patient: ??SUDHIR MOORE ? Age:??77 Years?Sex:??Female?:??1945?? Chief Complaint/Reason for Consultation [place] [facility] m[place], dx with L3 fx. needs neuro consult. History of Present Illness Ms. Moore is a 77-year-old female with history of type II DM, failure to thrive, COPD on intermittent 2 L home O2, presenting as a transfer from [facility] after a fall at home for ongoing neurosurgery surgical evaluation.?? Patient reports sustaining a ground-level mechanical fall on 06/28.?? There is no associated chest pain, difficulty breathing, focal weakness/numbness.?? She thinks she may have hit her head, does not think she lost consciousness.?? Imaging at [facility] included CXR (no rib fractures), CT abdomen/pelvis (unremarkable).?? CT lumbar spine revealed multiple levels of spondylosis, left paracentral disc protrusion at L1-L2, mild central canal stenosis at L2-L3 and L3-L4, severe facet arthropathy at L5-S1, and mild to moderate central canal stenosis and foraminal narrowing at L4-L5.?? Patient reported some perianal numbness and difficulty moving her bowels since the fall, raising concern for cauda equina syndrome and prompting transfer to [facility] [place].?? The case was discussed with neurosurgery who recommended MRI and head imaging.?? At [facility] [place], she has been afebrile, hypertensive to 160s/100s, saturating high 90s on 0- 2 L.?? Labs here show WBC 14.6, CBC otherwise unremarkable, CMP unremarkable, glucose 130, TSH 2.42.?? CT head shows no acute intracranial process (discussed with on-call radiologist).?? MRI lumbar spine reveals hyperintense marrow edema within S1-S4 vertebral bodies and bilateral sacral ala concerning for acute fractures.?? Also with fluid levels within the sacral spinal canal and neural foramina consistent with mixed spinal subarachnoid and subdural hemorrhage, NO evidence of spinal cord compression.?L2 and L3??endplate compression fractures look to be chronic on MRI. ??The imaging results were discussed with neurosurgery who did not recommend any surgical intervention, okay for Q4 neuro checks and admission to acute level of care.? On my arrival at bedside, patient was resting comfortably in the stretcher, denying any significant back pain currently or since arrival to [facility].?? She endorses stable perianal numbness but notes that she has been moving her bowels since the fall, just with a little extra straining.?? She has chronic urinary incontinence and now has a Velez placed.?? She denies any headache, dizziness, chest pain, difficulty breathing, vision changes.?? She denies frequent falls at home,??unsure of exactly what prompted the fall??leading up to this.?? She has a remote history of a wrist fracture??after a fall, denies other??fractures.?? She does take a vitamin D supplement at home. Review of Systems A full ROS was performed with all pertinent positives and negatives as per HPI.?? Objective ? Vital Signs?? Temperature: 97.1 DegF (07/02/23 03:17:00) Temperature Route: Temporal (07/02/23 03:17:00) Pulse Rate: 81 bpm (07/02/23 03:17:00) Respiratory Rate: 18 br/min (07/02/23 03:17:00) Systolic Blood Pressure:??151 mm Hg??High (07/02/23 03:17:00) Diastolic Blood Pressure:??85 mm Hg??High (07/02/23 03:17:00) Blood pressure sites: Arm, right (07/02/23 03:17:00) Mean Arterial Pressure: 107 mm Hg (07/02/23 03:17:00) Pulse Pressure: 66 mm Hg (07/02/23 03:17:00) Oxygen Saturation: 95 % (07/02/23 03:17:00) Liters per Minute: 2 L/min (07/01/23 23:54:00) Mode of Delivery (Oxygen): Room air (07/02/23 03:17:00) Early Warning Score: 4 (07/02/23 03:22:55) ? Physical Exam General:??Alert, thin, NAD. Mental Status:??Oriented to person, time and place. Normal affect HEENT:??Normocephalic. PERRL, EOMI. MMM. Neck supple. Respiratory:??Normal work of breathing. CTAB. Cardiovascular: RRR, normal S1 and S2. No murmur. No lower extremity edema. Gastrointestinal:??Normal bowel sounds. Abdomen soft, non-tender, non-distended. No masses Neurologic:??Cranial nerves II-XII grossly intact. Strength 5/5 in upper and lower extremities. Sensation to light touch intact throughout extremities. Rectal exam deferred.?? Skin:??No rashes, lesions or ecchymoses?? Extremities:??No gross deformities. Normal range of motion Assessment/Plan Diagnoses Back pain ??(M54.9) Compression fracture of spine ??(M48.50XA) Failure to thrive in adult ??(R62.7) Fall ??(W19.XXXA) Type 2 diabetes mellitus ??(E11.9) Underweight ??(R63.6) Vertebral pathologic fracture ??(M84.48XA) ?? 77-year-old female with history of type II DM, failure to thrive, COPD on intermittent 2 L home O2,presenting as a transfer from [facility] after a fall at home on 06/28 with subsequent??perianal??numbness??concerning for cauda equina syndrome??with??imaging revealing??chronic??L2-L3 compression fracture??and??sacral vertebral body fractures??without evidence of??spinal cord compression, no indication for neurosurgical intervention at this time. ??Being admitted for??neurologic monitoring and ongoing pain management. ?? S1-S4 vertebral body??fractures Mixed spinal subarachnoid and subdural hemorrhage Chronic lumbar compression fractures Pt reporting subjective perianal numbness and some constipation. Reportedly with intact sphincter tone at [facility]. ??No bowel incontinence. Urinary incontinence is chronic. MRI imaging??fortunately without evidence of cauda equina. ??Per neurosurgery team, no need for surgical??intervention for the??sacral vertebral fractures and??subarachnoid/subdural hemorrhage. ?? Plan: -Tylenol 975 mg scheduled 3 times daily -Oxycodone 5 mg every 6 hours as needed -Scheduled MiraLAX and senna -Neuro checks Q4 -PM&R consult placed ? Failure to thrive, underweight BMI 14.?? Patient denies any??significant??changes in weight recently, but has been losing weight??gradually ever since being diagnosed with diabetes and??monitoring her carb intake. ?? Plan: -Continue home vitamin D supplement -Should have PCP follow-up and??DEXA scan, OP Endo referral if concern for osteoporosis ? Chronic/stable: Type 2 diabetes mellitus: Hold home metformin. ??Lispro SS,??hypoglycemia measures COPD:??Does not use inhalers at home.?On intermittent 2 L??nasal cannula at home.?Breathing at baseline here.??DuoNebs as needed ordered. ? Quality Measures VTE Prophlylaxis: Hold chemical prophylaxis due to??subarachnoid/subdural hemorrhage.?? Pneumobootsordered. Code Status: Full code Diet: Diabetic ? Chantal Lorenzo MD Med-Peds PGY-3 P. 72042 or??[employer] ?? This patient was seen and discussed with attending physician, Dr. Vasques Histories Allergies Allergies ?(Active and Proposed Allergies Only) sulfADIAZINE? (Severity: Unknown severity, Onset: Unknown) ?Reactions: strange feeling all over my body , kind of like a hot feeling Versed? (Severity: Unknown severity, Onset: Unknown) ?Reactions: flat lined ? Past Medical History/Problem List Active Problems??(1) Underweight ? Past Surgical History No surgery history documented. ? Social History Tobacco Details:??Never smoker Denies alcohol use No MJ or illicit substance use ?? Family History No family history of??osteoporosis or pathologic fractures ?? Medications Home Medications Biotin?By Mouth?Daily Calcium Acetate?2,001?Milligram?By Mouth?3 times a day Durable Medical Equipment (Accu-Chek Sandy Test Strips)?See Instructions?TEST BLOOD GLUCOSE TWICE DAILY DIRECTED Durable Medical Equipment (Accu-Chek Multiclix Drum Lancets)?See Instructions?TEST BLOOD GLUCOSE TWICE DAILY DIRECTED Durable Medical Equipment (One Touch Ultra Test Strips)?See Instructions?for 30?Days?use to check blood sugar one time aadiwc30.9 Durable Medical Equipment (One touch delica lancets extra fine 33g)?See Instructions?use to test BG daily E11.9 Flax (Flax Seed Oil)?By Mouth?Daily Lutein?By Mouth?Daily Metformin (metFORMIN 500 mg oral tablet)?1?tab(s)?500?Milligram?By Mouth?3 times a day?for 30?Days?one with each meale11.9 Miscellaneous Rx (Misc Rx)?Daily Multivitamin?By Mouth?Daily Vitamin E?By Mouth?Daily ? Results Recent Labs BLOOD COUNT & DIFF WBC 14.6 k/mm3 (High)?? 07/01/2023 23:43 RBC 4.64 m/mm3 ()?? 07/01/2023 23:43 Hgb 13.6 Gm/dL ()?? 07/01/2023 23:43 Hct 41.9 % ()?? 07/01/2023 23:43 MCV 90.3 femtoliters ()?? 07/01/2023 23:43 MCH 29.3 pg ()?? 07/01/2023 23:43 MCHC 32.5 g/dL (Low)?? 07/01/2023 23:43 Platelet Count 326 k/mm3 ()?? 07/01/2023 23:43 RDW-SD 52.0 femtoliters (High)?? 07/01/2023 23:43 MPV 9.2 femtoliters (Low)?? 07/01/2023 23:43 Nucleated RBC (Automated) 0.0 #/100 WBC'S ()?? 07/01/2023 23:43 Abs. NRBC 0.0 k/mm3 ()?? 07/01/2023 23:43 Abs. Neut 12.1 k/mm3 (High)?? 07/01/2023 23:43 Abs. Lymph 1.1 k/mm3 ()?? 07/01/2023 23:43 Abs. [place] 1.1 k/mm3 (High)?? 07/01/2023 23:43 Abs. Eo 0.2 k/mm3 ()?? 07/01/2023 23:43 Abs. Baso 0.0 k/mm3 ()?? 07/01/2023 23:43 Neut % 83.0 % (High)?? 07/01/2023 23:43 Lymph % 7.8 % (Low)?? 07/01/2023 23:43 [place] % 7.3 % ()?? 07/01/2023 23:43 Eos % 1.3 % ()?? 07/01/2023 23:43 Baso % 0.2 % ()?? 07/01/2023 23:43 Imm Gran 0.4 % ()?? 07/01/2023 23:43 Abs. Imm Gran 0.1 k/mm3 ()?? 07/01/2023 23:43 ?? CHEM GENERAL Sodium 139 mmol/L ()?? 07/01/2023 23:43 Potassium 4.7 mmol/L ()?? 07/01/2023 23:43 Chloride 98 mmol/L ()?? 07/01/2023 23:43 Bicarbonate Level 31 mmol/L (High)?? 07/01/2023 23:43 Anion Gap 10 ()?? 07/01/2023 23:43 Glucose Level 130 mg/dL (High)?? 07/01/2023 23:43 BUN 23 mg/dL ()?? 07/01/2023 23:43 Creatinine-Blood 0.6 mg/dL ()?? 07/01/2023 23:43 Estimated GFR Creatinine 95 ML/MIN/1.73 M2 ()?? 07/01/2023 23:43 Calcium 9.4 mg/dL ()?? 07/01/2023 23:43 Magnesium 1.8 mg/dL ()?? 07/01/2023 23:43 Protein, Total 6.8 Gm/dL ()?? 07/01/2023 23:43 Albumin 3.8 Gm/dL ()?? 07/01/2023 23:43 AG Ratio 1.3 ()?? 07/01/2023 23:43 Alkaline Phosphatase 153 units/L (High)?? 07/01/2023 23:43 AST (SGOT) 17 units/L ()?? 07/01/2023 23:43 ALT (SGPT) 14 units/L ()?? 07/01/2023 23:43 Bilirubin, Total 0.5 mg/dL ()?? 07/01/2023 23:43 ?? ENDOCRINE/TUMOR MARKER TSH 2.42 uIU/mL ()?? 07/01/2023 23:43 ? * Rex Vasques MD: PERFORM Event Display: Admission Note Authored Date: [id number] ?? Attending Attestation: I have seen and evaluated this patient.?? I have discussed the case and its management with the resident and agree with the findings and jennifer documented in the resident's note.?? I?? will continue to provide care to this patient till 7 AMof the admitting date.? 77-year-old female with a past medical history of type 2 diabetes mellitus, failure to thrive, COPDon home oxygen had a mechanical fall 3 days back and went to [facility].?? CT of the concerning of multiple levels of spondylosis, left paracentral disc protrusion at L1-L2, mild central canal stenosis at L2-L3 and L3-L4, severe facet arthropathy at L5-S1, and mild to moderate central canal stenosis and foraminal narrowing at L4-L5.?? Patient [facility] ED for neurosurgeryevaluation.?? MRI of the brain showed?? MRI lumbar spine reveals hyperintense marrow edema within S1-S4 vertebral bodies and bilateral sacral ala concerning for acute fractures. There was?? sacral spinal canal and neural foramina consistent with mixed spinal subarachnoid and subdural hemorrhage, NOevidence of spinal cord compression.?? L2 and L3 endplate compression fractures look to be chronic on MRI.?? On clinical examination no brisk deep tendon reflexes.?? Plantar is normal.?? No clonus.??Patient has a chronic history of incontinence of urine.?? Neurosurgery has recommended against any acute intervention.?? Will follow-up with PMR.?? Will also get PT evaluation.?? Will continue with the pain management supportive treatment for sacral fracture. Hospital Progress note * Ivory Bhatti RN: PERFORM, SIGN, VERIFY Event Display: Progress Note Hospital Authored Date: Patient: SUDHIR MOORE Age: 77 years Sex: Female : 1945 Associated Diagnoses: None Author: Ivory Bhatti RN Findings Problem Related to Alteration in Neurological : Alteration in Neurological Function/new 07/05/2023 7:00 EST Alteration in Neuro status Related to Other: SC compression, L2-3 fx Goals & Outcomes, Neurological Lab studies/diagnostic tests within pt specific limits, Pt is safe with transfers & activities, Pt will be discharged without infection, Pt will be hemodynamically stable, Pt will be Neurologically stable, Pt will become pain free with appropriate intervention, Pt will maintain intact skin integrity, Pt will remain free from injury, Pt will resume/maintain ad equate cardiac output, Pt will state importance of adhering to medication regime, Pt/caregiver willreceive psychosocial support as needed, Pt/caregiver will state understanding of rehab plan, Pt/caregiver will state strategies to reduce risk factors, Pt/caregiver will state understanding aspiration precautions, Pt/caregiver will state understanding dietary modifications, Pt/caregiver will state understanding of disease process, Pt/caregiver will state understanding of plan/goals of care, Pt/caregiver will state understanding of the D/C plan Interventions, Neurological Assess/monitor neurologic status, Assess/monitor VS per unit standards & prn, Call/Report variances in assessments to provider, Collaborate w/ provider to implement appropriate guidelines, Collaborate with Nutrition, Collaborate with provider re: medication regime, Identify psychosocial issues related to diagnosis/illness, If no bowel movement in 3 days activate bowel regime, Hixson alternate means of communication, Keep patient's head & body in good alignment, Maintain patient safety if unsteady gait, Physical assessment per unit standards, Provide emotional support to Pt/caregiver Goals/Interventions, Neurological Yes Neurological, Problem Start 07/02/2023 4:14 Reviewed plan with, Neurological Patient Patient Progression, Neurological Pt progressing according to plan . Nursing Data Neurological Data. : Neurological Data. 07/05/2023 9:30 EST Tongue Disposition Midline Neurological Symptoms Unsteady gait/Ataxia, Weakness or loss of muscle strength Level of Consciousness Full Consciousness Orientated to person, place, time Person, Place, Time, Event Facial Symmetry Intact Characteristics of Speech Clear and normal Swallowing Difficulty None Pupil description, left Round Pupil description, right Round Pupil Size, Left 2 mm Pupil Size, Right 2 mm Strength LUE 5-Active movement against gravity & full resistance (Modified) Strength RUE 5-Active movement against gravity & full resistance Strength LLE 4-Active movement against gravity & some resistance Strength RLE 4-Active movement against gravity & some resistance Tone LUE Normal Tone RUE Normal Tone LLE Normal Tone RLE Normal Sensation LUE Intact Sensation RUE Intact Sensation LLE Intact Sensation RLE Intact Movement LUE Spontaneous, To command Movement RUE Spontaneous, To command Movement LLE Spontaneous, To command Movement RLE Spontaneous, To command Gait Unsteady Tremors None Response Eye Opening Spontaneously Motor Response-Adult Obeys commands Verbal Response-Adult Oriented and converses [place] Coma Score 15 1 - 10 Pain Scale Score 7 Neuro WNL except Eyes and Movements Conjugate gaze: Move in same direction at same speed Headache None Memory Intact Swallow - Neuro Normal . Evaluation AO 4. Speech clear. PERRLA. Bladder discomfort 12/12. PRN APAP for + relief. Denies HERRERA, dizziness, visual changes, numbness, tingling. Moves upper extremities 5/5, lower 4/5. Ambulates with walker + standby. CMS +. Alternates between RA and humidified 2L NC. Satting 95% on 2L. Upper right lobe clear. Left lobe, lower lobes dim. Denies cough, CP, SOB. Duoned X 1. LBM 07-05. IV LAC patent. Bed in lowest position, rails up, wheels locked, bed alarm on. Call roland within reach. Pending transfer to [facility] 3. Report via phone to [facility]. Will continue to monitor and document changes in CIS. . * Osman FERRER, Ashlee: PERFORM, MODIFY, MODIFY, SIGN, VERIFY Event Display: Progress Note Hospital Authored Date: Patient: SUDHIR MOORE Age: 77 years Sex: Female : 1945 Associated Diagnoses: None Author: Osman FERRER, Ashlee Findings Problem Related to Alteration in Neurological : Alteration in Neurological Function/new 07/04/2023 23:00 EST Alteration in Neuro status Related to Other: SC compression, L2-3 fx Goals & Outcomes, Neurological Lab studies/diagnostic tests within pt specific limits, Pt is safe with transfers & activities, Pt will be discharged without infection, Pt will be hemodynamically stable, Pt will be Neurologically stable, Pt will become pain free with appropriate intervention, Pt will maintain intact skin integrity, Pt will remain free from injury, Pt will resume/maintain ad equate cardiac output, Pt will state importance of adhering to medication regime, Pt/caregiver willreceive psychosocial support as needed, Pt/caregiver will state understanding of rehab plan, Pt/caregiver will state strategies to reduce risk factors, Pt/caregiver will state understanding aspiration precautions, Pt/caregiver will state understanding dietary modifications, Pt/caregiver will state understanding of disease process, Pt/caregiver will state understanding of plan/goals of care, Pt/caregiver will state understanding of the D/C plan Interventions, Neurological Assess/monitor neurologic status, Assess/monitor VS per unit standards & prn, Call/Report variances in assessments to provider, Collaborate w/ provider to implement appropriate guidelines, Document & Monitor O2 Sats; Administer O2 as ordered, Emergency airway equipment at bedside, Identify psychosocial issues related to diagnosis/illness, If no bowel movement in 3 days activate bowel regime, Hixson alternate means of communication, Keep patient's head & body in good alignment, Maintain normothermia, report temp >101.5 F, Maintain patient safety ifunsteady gait, Maintain strict intake & output, Monitor Fluid & Electrolytes, Serum Osmolarity, Monitor for headaches, nausea, vomiting, Monitor speech fluency, aphasia, word finding difficulty, Physical assessment per unit standards, Provide emotional support to Pt/caregiver, Teach & encourage deep breath & cough exercises, Teach and encourage use of Incentive spirometer, Teach pt/caregiver on plan of care, treatment, s/s & meds, Teach pt/caregiver on use of pain scale BH Goals/Interventions, Neurological Yes Neurological, Problem Start 07/02/2023 4:14 Reviewed plan with, Neurological Patient Patient Progression, Neurological Pt progressing according to plan . Nursing Data Neurological Data. : Neurological Data. 07/04/2023 23:27 EST Tongue Disposition Midline Neurological Symptoms Back pain, Unsteady gait/Ataxia, Weakness or loss of muscle strength Level of Consciousness Full Consciousness Orientated to person, place, time Person, Place, Time, Event Facial Symmetry Intact Strength LUE 5-Active movement against gravity & full resistance Strength RUE 5-Active movement against gravity & full resistance Strength LLE 5-Active movement against gravity & full resistance Strength RLE 5-Active movement against gravity & full resistance Movement LUE Spontaneous Movement RUE Spontaneous Movement LLE Spontaneous Movement RLE Spontaneous Gait Unsteady Response Eye Opening Spontaneously Motor Response-Adult Obeys commands Verbal Response-Adult Oriented and converses [place] Coma Score 15 Pain Interventions Pharmacological Pain relief acceptable Yes Pain Comment Pain Comment Neuro WNL except Eyes and Movements Conjugate gaze: Move in same direction at same speed Headache None Swallow - Neuro Normal . Evaluation A&Ox4. Able to make needs known. Face symmetric, tongue midline, ROBERTSON 5/5. Denies HERRERA, n/v. C/o back pain, Tylenol administered with positive effect. Pt voiding small amounts of urine. Bladder scans completed, volume <450, no straight cath this shift. Last BM 07/04. Bed in lowest position, calllight within reach, and bed alarm on. Safety maintained. See CIS for more information. . * Marilyn VALENTINO, Luz Elena: PERFORM, MODIFY, MODIFY Event Display: Progress Note Hospital Authored Date: [id number] Patient: ??SUDHIR MOORE ? Age:??77 Years?Sex:??Female?:??1945?? Subjective Overnight events???patient was noted to be retaining urine of 400 cc and had straight cath Vitals???afebrile, heart rate in 80s to 90s, systolic blood pressures ranging from 115-1 120s, satting well on 2 L nasal cannula Lab work???basic metabolic panel shows bicarb of 32 and BUN of 28.? On my evaluation, she states that she overall feels well and denies any numbness sensation but endorses not being able to notice when she is going.?? She states that she has been seen by urogyn and is noted to have overflow incontinence.?? She states she otherwise feels fine and denies any complaints.?? She does endorse having multiple bowel movements today. Review of Systems Gen:??Negative fevers/chills Cardiac:??Negative palpitations, Negative chest pain, Negative Edema Respiratory: Denies dyspnea, cough?? GI:??Negative abdominal pain, Negative diarrhea/constipation : Negative dysuria MSK:??Negative arthralgia/myalgias Neurological:??Negative tingling, numbness? All other review of systems is negative except for those mentioned in HPI Objective Vital Signs?? Temperature: 97.6 DegF (07/04/23 15:00:00) Temperature Route: Oral (07/04/23 15:00:00) Pulse Rate: 89 bpm (07/04/23 15:00:00) Respiratory Rate: 16 br/min (07/04/23 15:00:00) Systolic Blood Pressure: 133 mm Hg (07/04/23 15:00:00) Diastolic Blood Pressure: 81 mm Hg (07/04/23 15:00:00) Blood pressure sites: Arm, right (07/04/23 15:00:00) Mean Arterial Pressure: 81 mm Hg (07/04/23 11:31:00) Pulse Pressure: 39 mm Hg (07/04/23 11:31:00) Oxygen Saturation: 97 % (07/04/23 15:00:00) Liters per Minute: 2 L/min (07/04/23 11:33:00) Mode of Delivery (Oxygen): Room air (07/04/23 15:00:00) Early Warning Score: 2 (07/04/23 16:30:10) ?? Intake/Output? 07/01 23:35 07/04 07:00 07/03 07:00 07/02 07:00 07/01 07:00 ?? 07/04 17:15 07/04 17:15 07/04 06:59 07/03 06:59 07/02 06:59 Intake ? 1740 ?240 ?840 ?660 ?0 Output ? 1550 ?0 ?400 ?450 ?700 Net Total ?190 ?240 ?440 ?210 ? -700 ? Urine Count ?1 ?0 ?1 ?0 ?0 ?? Physical Exam General??: No apparent distress, laying comfortably, cachectic?? HEENT: Normocephalic, EOMI,??dry oral mucosa?? Cardiovascular??: RRR, S1??and S2 heard,??No M/G/R.?? Respiratory??Clear to auscultation bilaterally??no wheezes, no rales or rhonchi. Abdomen/GI??Non-distended. Normal bowel sounds. Soft, non-tender.?? Extremities??No lower extremity??edema.?? Vascular??Peripheral pulsations intact, warm extremities Neurologic??no focal neurological deficits. moving all extremities spontaneously _ Home Medications Biotin?By Mouth?Daily Calcium Acetate?2,001?Milligram?By Mouth?3 times a day Durable Medical Equipment (Accu-Chek Sandy Test Strips)?See Instructions?TEST BLOOD GLUCOSE TWICE DAILY DIRECTED Durable Medical Equipment (Accu-Chek Multiclix Drum Lancets)?See Instructions?TEST BLOOD GLUCOSE TWICE DAILY DIRECTED Durable Medical Equipment (One Touch Ultra Test Strips)?See Instructions?for 30?Days?use to check blood sugar one time [id number] Durable Medical Equipment (One touch delica lancets extra fine 33g)?See Instructions?use to test BG daily E11.9 Flax (Flax Seed Oil)?By Mouth?Daily Lutein?By Mouth?Daily Metformin (metFORMIN 500 mg oral tablet)?1?tab(s)?500?Milligram?By Mouth?3 times a day?for 30?Days?one with each meale11.9 Miscellaneous Rx (Misc Rx)?Daily Multivitamin?By Mouth?Daily Vitamin E?By Mouth?Daily ?? Inpatient Medications Medications (15) Active SCHEDULED: (6) Albuterol/Ipratropium Inhalation Madeline 3mL (Duoneb Inhalation Solution) ??1 vials, BAND Nebulizer, 4 times a day Insulin Lispro 100 units/mL Inj (3mL) (Insulin LISPRO Sliding Scale) ??2-10 units, Subcutaneous Injection, 3 times a day before meals Multivitamin Therapeutic / Minerals Tablet (Multivit Therapeutic/Minerals Tablet) ??1 tablet, By Mouth, Daily Polyethylene Glycol 17 Gm Powder (MiraLax Powder) ??17 Gm 1 pack/packet, By Mouth, Daily Senna Tablet (Senna 8.6 mg oral tablet) ??8.6 mg 1 tablet, By Mouth, Daily Vitamin D 1000 IU Tablet (Vitamin D3 1000 intl units oral tablet) ??1,000 International_Units, By Mouth, Daily CONTINUOUS: (0) PRN: (9) Acetaminophen 325 mg Tablet (Tylenol 325 mg oral tablet) ??325 mg, By Mouth, Every 6 hours Al hydroxide/Mg hydroxide/simethicone 200 mg-200 mg-20 mg/5 mL Susp UD (Maalox Plus Liquid) ??30 mL, By Mouth, Every 4 hours Bisacodyl 10 mg Suppository (Dulcolax Supp) ??10 mg 1 supp, Rectally, Daily Dextrose Inj Syringe (Dextrose 50% Inj Syringe (25Gm)) ??12.5 Gm, IV Push Slowly, Every 20 minutes Dextrose Inj Syringe (Dextrose 50% Inj Syringe (25Gm)) ??25 Gm, IV Push Slowly, Every 15 minutes Glucagon 1 mg Inj (Glucagon Inj) ??1 mg, Intramuscular, Once Glucose 40% Gel (15 Gm) (Glucose Gel) ??15 Gm, By Mouth, Every 20 minutes Glucose 40% Gel (15 Gm) (Glucose Gel) ??30 Gm, By Mouth, Every 20 minutes Magnesium Hydroxide 8% Susp UD (Milk of Magnesia Liquid) ??30 mL, By Mouth, Every 4 hours Results Recent Labs CHEM GENERAL Sodium 137 mmol/L ()?? 07/04/2023 12:25 Potassium 5.0 mmol/L ()?? 07/04/2023 12:25 Chloride 96 mmol/L (Low)?? 07/04/2023 12:25 Bicarbonate Level 32 mmol/L (High)?? 07/04/2023 12:25 Anion Gap 9 ()?? 07/04/2023 12:25 Glucose Level 287 mg/dL (High)?? 07/04/2023 12:25 Glucose, POC 137 mg/dL (High)?? 07/04/2023 16:28 BUN 28 mg/dL (High)?? 07/04/2023 12:25 Creatinine-Blood 0.6 mg/dL ()?? 07/04/2023 12:25 Estimated GFR Creatinine 93 ML/MIN/1.73 M2 ()?? 07/04/2023 12:25 Calcium 8.9 mg/dL ()?? 07/04/2023 12:25 Assessment/Plan Assessment:??Ms. Moore is a 77-year-old female with history of type II DM, failure to thrive, COPD on intermittent 2 L home O2, presenting as a transfer from [facility] after a fall at home on 06/28 with subsequent perianal numbness concerning for cauda equina syndrome with imaging revealing chronic L2-L3 compression fracture and sacral vertebral body fractures without evidence of spinal cord compression, no indication for neurosurgical intervention at this time. She was also seen by orthopedics for her possible S1- S4 fractures and recommened not acute OR intervention. She was admitted for neurologic monitoring and has been stable. She was seen by physical therapy who recommended rehab, however patient is choosing to go home with services instead. ?? Urinary retention Patient noted to be retaining urine??overnight??(400 cc) and was??straight cathed Patient has history of??mixed urinary incontinence??and was referred to urogynecology She is states that she is seeing urogynecology and was told she had overflow incontinence She is currently not endorsing saddle anesthesia and states she is just unaware of when she needs to urinate ?? Plan: -Bladder scans q6h -Straight cath for >450 -F/u with urogyn outpt ?? Acute or subacute T9 fracture with mild retropulsion Sacral canal subarachnoid hemorrhage MRI imaging fortunately without evidence of cauda equina. Per neurosurgery team, no need for surgical intervention for the sacral vertebral fractures and subarachnoid/subdural hemorrhage. ?? Recommendations: ??-Patient may be off of log roll precautions and work with PT if necessary ??-Soft TLSO PRN comfort if pt has mid-back pain, especially with weight bearing ??-f/u in outpt clinic with trauma surgery in [address] T-spine ?? Acute nondisplaced oblique fracture through the S3 sacral segment Ortho consulted and recommended no acute intervention ?? Recommendations: -F/u outpatient - Dr. Santos upon discharge in approximately 2 weeks, [facility], [place], [place] -WBAT B/L LE per ortho ?? Failure to thrive, underweight: BMI 14. Patient denies any significant changes in weight recently, but has been losing weight gradually ever since being diagnosed with diabetes and monitoring her carb intake. ?? Recommendations: ??-Continue home vitamin D supplement ??-F/u with PCP ?? Chronic/stable: ??Type 2 diabetes mellitus:??POC and sliding scale inpt ??COPD: Does not use inhalers at home. On intermittent 2 L nasal cannula at home. Follow-up with PCP ?? Luz Elena Sanders MD Internal Medicine PGY-3 Pager: [phone] ?? Patient seen and discussed with Dr. Bates, chief resident * Andrew VALENTINO, Barbara: PERFORM Event Display: Progress Note Hospital Authored Date: Attending Attestation:??I have seen and??evaluated this??patient independently. ??I have also discussed the case and its management with Dr. Bates (chief resident and [facility] faculty attending on-service) and agree with the findings and plan as documented in the resident???s note. ?? Date of service: 07/04/23 Note * Birgit FERRER, Serena: PERFORM Event Display: Discharge/Transfer Note Hospital Authored Date: [id number] Nursing Discharge Note Entered On: 07/05/2023 13:25 EST Performed On: 07/05/2023 13:24 EST by Birgit FERRER Serena Nursing Discharge Note 2 Discharge Time : 07/05/2023 14:04 EST Birgit FERRER Serena - 07/05/2023 16:12 EST Discharge Level of Care at Discharge : Homehealth/VNA Discharge VNA/Hospice/Home Care(v001) : [facility] Patient Left Unit Via : Wheelchair Patient Accompanied Off Unit with : Responsible adult, Other: STAFF DC Instructions Provided & Signed by Pt : Yes Patient Understands D/C Instructions : Yes Patient Instructions Discharge Signed : Yes Did Pt have Specialty Bed or Wound Vac : No Birgit FERRER, Serena - 07/05/2023 13:24 EST * Luz Elena Sanders MD: MODIFY, MODIFY, MODIFY, PERFORM Event Display: Discharge/Transfer Note Hospital Authored Date: [id number] Patient: ??SUDHIR MOORE ? Age:??77 Years?Sex:??Female?:??1945?? Patient Information Discharge Location: A Primary Care Physician: Vicky Treviño NP Admit Date/Time: 07/01/23 23:35 Discharge Date: 07/05/23 Discharge Disposition Discharge Disposition: Home with Home Health Discharge Diagnosis Constipation, unspecified constipation type (K59.00) Closed fracture of sacrum, unspecified portion of sacrum, sequela (S32.10XS) Back pain (M54.9) Compression fracture of spine (M48.50XA) Failure to thrive in adult (R62.7) Fall (W19.XXXA) Type 2 diabetes mellitus (E11.9) Underweight (R63.6) Vertebral pathologic fracture (M84.48XA) Urinary Retention ?? _ Discharge Medications Acetaminophen (Tylenol 325 mg oral tablet)?325?Milligram?By Mouth?Every 6 hours?as needed?Pain , Mild Biotin?By Mouth?Daily Calcium Acetate?2,001?Milligram?By Mouth?3 times a day Durable Medical Equipment (Accu-Chek Sandy Test Strips)?See Instructions?TEST BLOOD GLUCOSE TWICE DAILY DIRECTED Durable Medical Equipment (Accu-Chek Multiclix Drum Lancets)?See Instructions?TEST BLOOD GLUCOSE TWICE DAILY DIRECTED Durable Medical Equipment (One Touch Ultra Test Strips)?See Instructions?for 30?Days?use to check blood sugar one time [id number] Durable Medical Equipment (One touch delica lancets extra fine 33g)?See Instructions?use to test BG daily E11.9 Flax (Flax Seed Oil)?By Mouth?Daily Lutein?By Mouth?Daily Metformin (metFORMIN 500 mg oral tablet)?1?tab(s)?500?Milligram?By Mouth?3 times a day?for 30?Days?one with each meale11.9 Miscellaneous Rx (Misc Rx)?Daily Multivitamin?By Mouth?Daily Vitamin E?By Mouth?Daily ?? Medications Started Tylenol as needed for pain every 6 hours Medications Discontinued None Doses Changed None Allergies Allergies ?(Active and Proposed Allergies Only) sulfADIAZINE? (Severity: Unknown severity, Onset: Unknown) ?Reactions: strange feeling all over my body , kind of like a hot feeling Versed? (Severity: Unknown severity, Onset: Unknown) ?Reactions: flat lined PCP Follow-Up/Heads-Up Patient presented after fall at home with perianal numbness with concern for cauda equina syndrome.??She underwent??imaging showing chronic L2-L3 compression fracture with sacral vertebral body fractures??but no spinal cord compression. ??She was seen by neurosurgery and orthopedics both recommending no??acute surgical intervention at this time. ??She will have follow-up with both??of the specialist outpatient Please follow-up on??neurosurgery appointment on July 31 and??Ortho appointment to be scheduledin [address] Santos Please follow-up on patient's pain control (stated she has Tylenol at home) Please follow-up with patient's BMI and??nutritional status Please follow-up with patient's COPD and??O2 use Please follow-up with urogyn outpt for incontinence Future Appointments Monday 9:00 AM EST ?? Where: [facility] [address] [place] [address] Drive [address] [place] [address]- Status: Pending Hospital Course Ms. Moore is a 77-year-old female with history of type II DM, failure to thrive, COPD on intermittent 2 L home O2, presenting as a transfer from [facility] after a fall at home on 06/28 with subsequent perianal numbness concerning for cauda equina syndrome with imaging revealing chronic L2-L3 compression fracture and sacral vertebral body fractures without evidence of spinal cord compression, no indication for neurosurgical intervention at this time. She was also seen by orthopedics for her possible S1-S4 fractures and recommend not acute OR intervention. She was admitted for neurologic monitoring and has been stable. She was seen by physical therapy who recommended rehab, how ever patient is choosing to go home with services instead. ?? Acute or subacute T9 fracture with mild retropulsion Sacral canal subarachnoid hemorrhage MRI imaging fortunately without evidence of cauda equina. Per neurosurgery team, no need for surgical intervention for the sacral vertebral fractures and subarachnoid/subdural hemorrhage. ?? Recommendations: ??-Patient may be off of log roll precautions and work with PT if necessary ??-Soft TLSO PRN comfort if pt has mid-back pain, especially with weight bearing ??-f/u in outpt clinic with??neurosurgery in [address] T-spine ?? Acute nondisplaced oblique fracture through the S3 sacral segment Ortho consulted and recommended no acute intervention ?? Recommendations: -F/u outpatient - Dr. Santos upon discharge in approximately 2 weeks, [facility] [address], [place], [place] -WBAT B/L LE per ortho ?? Urinary retention Patient noted to be retaining urine??overnight??(400 cc) and was??straight cathed Patient has history of??mixed urinary incontinence??and was referred to urogynecology She is states that she is seeing urogynecology and was told she had overflow incontinence She is currently not endorsing saddle anesthesia and states she is just unaware of when she needs to urinate ?? Recommendations: -F/u with urogyn outpt ?? Failure to thrive, underweight: BMI 14. Patient denies any significant changes in weight recently, but has been losing weight gradually ever since being diagnosed with diabetes and monitoring her carb intake. Recommendations: ??-Continue home vitamin D supplement -F/u with PCP ?? Chronic/stable: ??Type 2 diabetes mellitus: Continue home medications ??COPD: Does not use inhalers at home. On intermittent 2 L nasal cannula at home. Follow-up with PCP ? Objective Vital Signs?? Temperature: 97.7 DegF (07/04/23 04:00:00) Temperature Route: Oral (07/04/23 04:00:00) Pulse Rate: 80 bpm (07/04/23 04:00:00) Respiratory Rate: 18 br/min (07/04/23 04:00:00) Systolic Blood Pressure: 108 mm Hg (07/04/23 04:00:00) Diastolic Blood Pressure: 69 mm Hg (07/04/23 04:00:00) Blood pressure sites: Arm, left (07/04/23 04:00:00) Mean Arterial Pressure: 92 mm Hg (07/03/23 15:23:00) Pulse Pressure: 62 mm Hg (07/03/23 15:23:00) Oxygen Saturation: 97 % (07/04/23 04:00:00) Liters per Minute: 2 L/min (07/04/23 04:00:00) Mode of Delivery (Oxygen): Nasal cannula (07/04/23 04:00:00) Early Warning Score: 2 (07/04/23 06:55:03) ? . Physical Exam General??: No apparent distress, laying comfortably HEENT: Normocephalic, EOMI,??dry oral mucosa?? Cardiovascular??: RRR, S1??and S2 heard,??No M/G/R.?? Respiratory??Clear to auscultation bilaterally??no wheezes, no rales or rhonchi. Abdomen/GI??Non-distended. Normal bowel sounds. Soft, non-tender.?? Extremities??No lower extremity??edema.?? Vascular??Peripheral pulsations intact, warm extremities Neurologic??no focal neurological deficits. moving all extremities spontaneously Consultants Ortho - Carline INGRAM, Anna PM&R - Filemon VALENTINO, José Miguel Trauma - Kristen VALENTINO, Fuentes Neurosurgery - Jak INGRAM, Zac Physical Therapy - Elizabeth Wayne ?? Pending Results No Pending Results Patient Education Titles Hemorrhagic Stroke: Subarachnoid Hemorrhage?? Neck or Spine Fractures (Broken Neck or Spine)?? Back Fracture (Compression Fracture)?? Follow-Up Appointments Added Follow Up ?Time Frame ?Comments Hudson DILLARD, Vicky?Within two weeks Patient Instructions You had come to the emergency room after having a fall and had imaging done showing a compression fracture in your lumbar spine.?? You were evaluated by neurosurgery who did not recommend any surgeries at this time.?? You were seen by orthopedics due to a possible sacral fracture, however, also recommended no surgery during this hospitalization.?? You were seen by physical therapy who recommendedgoing to rehab, however, you had stated that you prefer going home with services.?? Please follow-up with your PCP in regards to this hospitalization ?? Please follow-up with orthopedics (Dr. Santos) in 2 weeks [place] [address] [place] You have a neurosurgery appointment scheduled for July 31 at 9 AM ?? Medications started: Tylenol as needed for pain every 6 hours ?? Medications stopped: None ?? Occasion doses change: None Home Health Face to Face *Denotes mandatory bolanos ?? *I certify that this patient is under my care and that I or an allowed non- physician working with me had a face to face encounter with the patient on this date:??07/04/2023 08:06 ?? *The encounter with the patient was in whole, or in part, for the following medical condition, which is the primary diagnosis(es) for home health care:??Constipation, unspecified constipation type (K59.00) Closed fracture of sacrum, unspecified portion of sacrum, sequela (S32.10XS) Back pain (M54.9) Compression fracture of spine (M48.50XA) Failure to thrive in adult (R62.7) Fall (W19.XXXA) Type 2 diabetes mellitus (E11.9) Underweight (R63.6) Vertebral pathologic fracture (M84.48XA) ? *Select the indications for the discipline/s that are being arranged for this patient. Nursing (select all that apply): [_] None [x] Medication management (reconciliation, teaching)?? [x] Chronic disease management?? [_] Wound care and treatment?? [_] Home safety evaluation [_] Administer SQ/IM/IV medications?? [_] Cath care?? [_] Drain care?? [_] Trach or GT care?? Other _ Occupation Therapy (select all that apply): [_] None [_] ADL Management [_] Fall prevention training [_] Energy conservation [_] Cognitive training Other _ Physical Therapy (select all that apply): [_] None [x] Functional mobility training [x] Home exercise program to strengthen [_] Increase ROM?? [x] Falls prevention training [_] Home maintenance program for chronic disease Other _ Speech Therapy (select all that apply): [_] None [_] Swallow evaluation and training [_] Speech and language training [_] Cognitive training to process, organize, and/or recall information Other _ ? *Homebound due to (select all that apply): [x] Inability to leave home without assistance/supervision [_] Inability to ambulate without assistance [_] Pain [_] Decreased strength and endurance [_] Unsteady gait [_] Severe SOB and fatigue [_] Impaired transfers [_] Inability to negotiate stairs [_] Limited weight bearing [_] Mental status change? *Physician Signature:??Luz Elena Sanders MD ?? *By signing this, I certify that I have personally evaluated the patient and agree with the findings and recommendations as documented above. ?? Results Discharge Labs BLOOD COUNT & DIFF WBC 13.4 k/mm3 (High)?? 07/02/2023 07:14 RBC 4.71 m/mm3 ()?? 07/02/2023 07:14 Hgb 13.8 Gm/dL ()?? 07/02/2023 07:14 Hct 42.4 % ()?? 07/02/2023 07:14 MCV 90.0 femtoliters ()?? 07/02/2023 07:14 MCH 29.3 pg ()?? 07/02/2023 07:14 MCHC 32.5 g/dL (Low)?? 07/02/2023 07:14 Platelet Count 327 k/mm3 ()?? 07/02/2023 07:14 RDW-SD 51.5 femtoliters (High)?? 07/02/2023 07:14 MPV 9.2 femtoliters (Low)?? 07/02/2023 07:14 Nucleated RBC (Automated) 0.0 #/100 WBC'S ()?? 07/02/2023 07:14 Abs. NRBC 0.0 k/mm3 ()?? 07/02/2023 07:14 Abs. Neut 12.1 k/mm3 (High)?? 07/01/2023 23:43 Abs. Lymph 1.1 k/mm3 ()?? 07/01/2023 23:43 Abs. [place] 1.1 k/mm3 (High)?? 07/01/2023 23:43 Abs. Eo 0.2 k/mm3 ()?? 07/01/2023 23:43 Abs. Baso 0.0 k/mm3 ()?? 07/01/2023 23:43 Neut % 83.0 % (High)?? 07/01/2023 23:43 Lymph % 7.8 % (Low)?? 07/01/2023 23:43 [place] % 7.3 % ()?? 07/01/2023 23:43 Eos % 1.3 % ()?? 07/01/2023 23:43 Baso % 0.2 % ()?? 07/01/2023 23:43 Imm Gran 0.4 % ()?? 07/01/2023 23:43 Abs. Imm Gran 0.1 k/mm3 ()?? 07/01/2023 23:43 ?? CHEM GENERAL Sodium 139 mmol/L ()?? 07/01/2023 23:43 Potassium 4.7 mmol/L ()?? 07/01/2023 23:43 Chloride 98 mmol/L ()?? 07/01/2023 23:43 Bicarbonate Level 31 mmol/L (High)?? 07/01/2023 23:43 Anion Gap 10 ()?? 07/01/2023 23:43 Glucose Level 130 mg/dL (High)?? 07/01/2023 23:43 Glucose, POC 158 mg/dL (High)?? 07/04/2023 06:52 BUN 23 mg/dL ()?? 07/01/2023 23:43 Creatinine-Blood 0.6 mg/dL ()?? 07/01/2023 23:43 Estimated GFR Creatinine 95 ML/MIN/1.73 M2 ()?? 07/01/2023 23:43 Calcium 9.4 mg/dL ()?? 07/01/2023 23:43 Magnesium 1.8 mg/dL ()?? 07/01/2023 23:43 Protein, Total 6.8 Gm/dL ()?? 07/01/2023 23:43 Albumin 3.8 Gm/dL ()?? 07/01/2023 23:43 AG Ratio 1.3 ()?? 07/01/2023 23:43 Alkaline Phosphatase 153 units/L (High)?? 07/01/2023 23:43 AST (SGOT) 17 units/L ()?? 07/01/2023 23:43 ALT (SGPT) 14 units/L ()?? 07/01/2023 23:43 Bilirubin, Total 0.5 mg/dL ()?? 07/01/2023 23:43 ? ENDOCRINE/TUMOR MARKER TSH 2.42 uIU/mL ()?? 07/01/2023 23:43 ? MISC. CHEMISTRY 25 OH-Vitamin D Level 52.2 ng/mL (High)?? 07/02/2023 07:16 ? URINE OTHER Est Creatinine Clearance 43.74 mL/min ()?? 07/02/2023 04:05 ? 35??minutes spent on discharge * Serena Genao RN: PERFORM Event Display: Patient Education/Instruction Authored Date: Inpatient Adult Discharge Instructions [address] [address] Name: SUDHIR MOORE : 1945 Visit: 07/01/2023 23:35:00 Current Date: 07/05/2023 13:26 Account: [id number] Inpatient Adult Discharge Instructions We would like to thank you for allowing us to assist you with your healthcare needs. The following includes patient education materials and information regarding your injury/illness. Our entire staffstrives to provide an excellent experience for our patients and their families. PLEASE ENSURE YOU FOLLOW-UP PER THE INSTRUCTIONS BELOW! ?? YOUR OPINION IS IMPORTANT TO US! Please complete the survey you may receive by mail or email. Your feedback will be used to make improvements to the healthcare experiences of our patients and their families. Surveys are administered by [employer] ?? If further treatment with your primary care physician or another doctor is recommended, it is important for you to keep the appointment. Call your primary care physician or return to the Emergency Department immediately if your condition worsens, fails to improve, or new symptoms develop. If you need to find a doctor, you can call [facility] Link for a referral at [phone] or toll free at [phone] or log in to [email or web address].. ?? [facility], in keeping with [facility] guidance, no longer requires face masks for staff, patientsor visitors in most situations. Similiar to time spent indoors at other locations, there is the chance that you were exposed to repiratory viruses during your time with us (such as flu or COVID-19). If you develop symptoms concerning for a viral respiratory infection, please seek testing (and treatment if indicated) from your medical provider or home test kit. ?? You can view and manage your care through the patient portal or by using a health care katy of your choosing. [employer] is a website that allows you to securely view your medical information including your hospital discharge summary, office visit summaries, medications and follow-up visits. You can also request appointments, renew medications, and request access to your medical information using a health care katy of your choosing, or just ask a question. You can enroll at [email or web address] or register during your next office visit. You have been discharged from [facility], Patient Care Unit: S3. If you have any questions regarding these instructions after you leave, please call us and we will be happy to assist you. [facility] Your Care Team Attending Physician Andrew VALENTINO, Barbara Consulting Providers Filemon VALENTINO, Patrica Santos MD, Zach Ruiz Discharging Providers Marilyn VALENTINO, Luz Elena Reason for Admission [place] [facility] [place], dx with L3 fx. needs neuro consult. 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 You may have had other tests and procedures not included in this list. Please discuss all test results with your provider. Basic Metabolic Panel CBC CBC w/ Differential Comprehensive Metabolic Panel GLUCOSE POC Magnesium Level TSH with T4 Reflex (Adults Only) Vitamin D [address] 3D Rend W/O Post Proc CT Cervical Spine W/O Contrast CT Head/Brain W/O Contrast CT Pelvis W/O Contrast CT Thoracic Spine W/O Contrast MRI Lumbar Spine W/O Contrast MRI Thoracic Spine W/O Contrast XR Pelvis Min 3 Views XR Sacrum and Coccyx Min 2 Views Primary Care Provider Vicky Treviño NP Advance Directive Health Care Proxy on File No Patient is <18 years old Discharge Vitals Temperature: 97.8 DegF Height: 161 cm Pulse Rate:??91 bpm??High Weight: 34.2 kg Respiratory Rate: 18 br/min Body Mass Index:??13.19 kg/m2??Low Systolic Blood Pressure: 128 mm Hg Body surface area: 1.24 Diastolic Blood Pressure: 79 mm Hg ?? Oxygen Saturation: 94 % ?? Studies Pending All tests and labs ordered during this hospital stay have been completed unless listed below. Please discuss all pending results with your provider listed above in these instructions. ?? No incomplete studies found What to do next Instructions From Your Doctor You had come to the emergency room after having a fall and had imaging done showing a compression fracture in your lumbar spine.?? You were evaluated by neurosurgery who did not recommend any surgeries at this time.?? You were seen by orthopedics due to a possible sacral fracture, however, also recommended no surgery during this hospitalization.?? You were seen by physical therapy who recommendedgoing to rehab, however, you had stated that you prefer going home with services.?? Please follow-up with your PCP in regards to this hospitalization ?? Please follow-up with orthopedics (Dr. Santos) in 2 weeks [facility] [address], [place], [place] You have a neurosurgery appointment scheduled for July 31 at 9 AM ?? Medications started: Tylenol as needed for pain every 6 hours ?? Medications stopped: None ?? Occasion doses change: None Discharge Orders Scheduled Follow-Up Appointments Monday 9:00 AM EST ?? Where: [facility] [address] [place] [address] Drive [address] [place] [address]- Status: Pending You Need to Schedule the Following Appointments Follow Up with??Vicky Treviño NP When:??Within Within two weeks Where: [address] [place] [address]- Discharge Medications OSCAR SUDHIR :1945 Visit Date:07/01/2023 Medications: Please continue your medications until treatment is completed or stopped by your provider. Medications not listed below should be discontinued. Discuss any questions related to medications with your provider. What How Much When Instructions Next Dose New Acetaminophen (Tylenol 325 mg oral tablet) 325 Milligram Oral Every 6 hours as needed for Pain , Mild Pickup at [facility] 3 as needed Changed Metformin (metFORMIN 500 mg oral tablet) 1 tab(s) Oral 3 times a day Duration: 30 Days one with each meal e11.9 ?? with meal Unchanged Ascorbic Acid (Vitamin C) 9am 07/06 Unchanged Biotin Oral Daily 9am 07/06 Unchanged Calcium Acetate 2,001 Milligram Oral 3 times a day 07/05 Unchanged Cyanocobalamin (Vitamin B12) 07/06 Unchanged Durable Medical Equipment (Accu-Chek Sandy Test Strips) See instructions TEST BLOOD GLUCOSE TWICE DAILY DIRECTED ?? see instructions Unchanged Durable Medical Equipment (Accu-Chek Multiclix Drum Lancets) See instructions TEST BLOOD GLUCOSE TWICE DAILY DIRECTED ?? see instructions Unchanged Durable Medical Equipment (One touch delica lancets extra fine 33g) See instructions use to test BG daily E11.9 ?? see instructions Unchanged Durable Medical Equipment (One Touch Ultra Test Strips) See instructions Duration: 30 Days use to check blood sugar one time daily e11.9 ?? seeinstructions Unchanged Flax (Flax Seed Oil) Oral Daily 9am 2 Unchanged Lutein Oral Daily 9am 07/06 Unchanged Magnesium Carbonate take as ordered by PCP Unchanged Miscellaneous Rx (Magnesium) take as ordered by PCP Unchanged Miscellaneous Rx (Misc Rx) Daily [id number] Unchanged Miscellaneous Rx (Misc Rx) [id number] Unchanged Multivitamin Oral Daily 9am 07/06 Unchanged Vitamin E Oral Daily 9am 07/06 Pharmacy Information [facility] [address] [place], [place] [id number] [phone] ?? What How Much When Comments Stop Taking Gabapentin (gabapentin 100 mg oral capsule) 1 capsule Oral 3 times a day Test Results Below is a partial list of the most recent Laboratory test results done prior to this discharge. You may have had other tests and procedures not included in this list. Please discuss all test resultswith your provider. Est Creatinine Clearance - 43.74 mL/min (07/02/2023) Basic Metabolic Panel (07/04/2023) ???Sodium - 137 mmol/L???Potassium - 5.0 mmol/L???Chloride - 96 mmol/L???Bicarbonate Level - 32 mmol/L???Anion Gap - 9???Glucose Level - 287 mg/dL???BUN - 28 mg/dL???Creatinine-Blood - 0.6 mg/dL???Estimated GFR Creatinine - 93 ML/MIN/1.73 M2???Calcium - 8.9 mg/dL CBC (07/02/2023) ???WBC - 13.4 k/mm3???RBC - 4.71 m/mm3???Hgb - 13.8 Gm/dL???Hct - 42.4 %???MCV - 90.0 femtoliters???MCH - 29.3 pg???MCHC - 32.5 g/dL???Platelet Count - 327 k/mm3???RDW-SD - 51.5 femtoliters???MPV - 9.2 femtoliters???Nucleated RBC (Automated) - 0.0 #/100 WBC'S???Abs. NRBC - 0.0 k/mm3 CBC w/ Differential (07/01/2023) ???WBC - 14.6 k/mm3???RBC - 4.64 m/mm3???Hgb - 13.6 Gm/dL???Hct - 41.9 %???MCV - 90.3 femtoliters???MCH - 29.3 pg???MCHC - 32.5 g/dL???Platelet Count - 326 k/mm3???RDW-SD - 52.0 femtoliters???MPV - 9.2 femtoliters???Nucleated RBC (Automated) - 0.0 #/100 WBC'S???Abs. NRBC - 0.0 k/mm3???Abs. Neut - 12.1 k/mm3???Abs. Lymph - 1.1 k/mm3???Abs. One[place] - 1.1 k/mm3???Abs. Eo - 0.2 k/mm3???Abs. Baso - 0.0 k/mm3???Neut % - 83.0 %???Lymph % - 7.8 %???One[place] % - 7.3 %???Eos % - 1.3 %???Baso % - 0.2 %???Imm Gran - 0.4 %???Abs. Imm Gran - 0.1 k/mm3 Comprehensive Metabolic Panel (07/01/2023) ???Sodium - 139 mmol/L???Potassium - 4.7 mmol/L???Chloride - 98 mmol/L???Bicarbonate Level - 31 mmol/L???Anion Gap - 10???Glucose Level - 130 mg/dL???BUN - 23 mg/dL???Creatinine-Blood - 0.6 mg/dL???Estimated GFR Creatinine - 95 ML/MIN/1.73 M2???Calcium - 9.4 mg/dL???Protein, Total - 6.8 Gm/dL???Albu min - 3.8 Gm/dL???AG Ratio - 1.3???Alkaline Phosphatase - 153 units/L???AST (SGOT) - 17 units/L???ALT (SGPT) - 14 units/L???Bilirubin, Total - 0.5 mg/dL GLUCOSE POC (07/05/2023) ???Glucose, POC - 273 mg/dL Magnesium Level (07/01/2023) ???Magnesium - 1.8 mg/dL TSH with T4 Reflex (Adults Only) (07/01/2023) ???TSH - 2.42 uIU/mL Vitamin D 25 Hydroxy Level (07/02/2023) ???25 OH-Vitamin D Level - 52.2 ng/mL Immunizations This Visit Not Given Vaccine Commentsinfluenza virus vaccine, inactivated Permanently Refused Allergies (NKA means No Known Allergies) Versed??( flat lined ) sulfADIAZINE??( strange feeling all over my body , kind of like a hot feeling ) Problems Active Problems??(1) Underweight?? Education Materials Below is the list of Educational Leaflet Providered with your Discharge Instructions. Hemorrhagic Stroke: Subarachnoid Hemorrhage?? Neck or Spine Fractures (Broken Neck or Spine)?? Back Fracture (Compression Fracture)?? Valuables and Belongings I fully understand and agree that [facility] accepts no responsibility for all my personal property including clothing, toilet articles, radios, jewelry, dentures, hearing aids, rings, money, or any other property that is in my possession or is brought to me after admission. I understand certain valuables may be placed in a hospital safe for a short period of time. I understand that the hospital is not liable for loss or damage due to accident, fire, or other natural occurrence while said property is in the safe. I accept full responsibility for any personal property that I keep with me, and will not hold the hospital responsible in case of loss or disappearance. I acknowledge that i have been encouraged to send valuables and belongings home. ?? Review of Valuable and Belonging List: With patient, With family Date for Pt to Sign Valuables/Belongings: 07/05/23 11:44:00 ?? Other Discharge Information ? Case Management Discharge Plan?? Discharge Plan?? Discharge Agency Information?? Discharge Level of Care at Discharge: Homehealth/VNA Name of Agency #1: [facility] Dis[facility] V[facility]/Hospice/Home Care: [facility] Categories #1: Physical Therapy, Shelter ?? Service Comments #1: [facility] will call you to set up visit. If you don't hear from them please call [phone] ?? Pulmonary Rehab Status?? Pulmonary Rehab Discharge Status?? Respiratory Rate: 18 br/min ? Common Emergency Awareness Tips IS IT A STROKE? Act FAST and Check for these signs: FACE Does the face look uneven? ARM Does one arm drift down? SPEECH Does their speech sound strange? TIME Call at any sign of stroke ?? Heart Attack Signs Chest discomfort: Most heart attacks involve discomfort in the center of the chest and lasts more than a few minutes, or goes away and comes back. It can feel like uncomfortable pressure, squeezing, fullness or pain. Discomfort in upper body: Symptoms can include pain or discomfort in one or both arms, back, neck, jaw or stomach. Shortness of breath: With or without discomfort. Other signs: Breaking out in a cold sweat, nausea, or lightheaded. Remember, MINUTES DO MATTER. If you experience any of these heart attack warning signs, call to get immediate medical attention! ?? Smoking can increase your chances of developing chronic health problems and can cause harmful effects to other family members in your house. If you smoke, you are strongly encouraged to quit. Please call [facility] Link at [phone] or [phone] ([phone]) or log in to [email or web address] for referrals to smoking cessation programs. ?? 430 Suicide & Crisis Lifeline is available 26/12 if you or someone you know needs to find a reason to keep living. By calling 343 you'll be connected to a skilled, trained counselor at a crisis center in your area. INPATIENT DISCHARGE INSTRUCTIONS SIGNATURE PAGE SUDHIR MOORE Location:[facility] Registration Date and Time:07/01/2023 23:35 EST Primary Care Physician: Vicky Treviño NP, Attending Physician: Barbara Morales MD, I SUDHIR MOORE, have received the above patient education materials/instructions and have verbalized understanding. If ambulance or transport services are being used I further acknowledge beinggiven a choice of service. ?? If you need to contact me, please call me at this number: . Patient/Lead Quality Control Technician Name: Patient/Lead Quality Control Technician Signature: Relationship to Patient: Witness Name/Signature: Date: * Luz Elena Sanders MD: PERFORM Event Display: Patient Education Leaflets Authored Date: [id number] Hemorrhagic Stroke: Subarachnoid Hemorrhage ?? [address] Hemorrhagic Stroke: Subarachnoid Hemorrhage A hemorrhagic stroke happens when a blood vessel in the brain ruptures or leaks. A blood vessel on the surface of the brain bursts and bleeds (hemorrhages). This spills blood into the subarachnoid space around the brain and sometimes into the brain. The arachnoid is one of the 3 membranes that surround the brain. In a subarachnoid hemorrhage, the blood leaks under this membrane and around the brain (in the subarachnoid space). This type of stroke often happens suddenly, with little warning. It's the most serious of all typesof strokes. What happens during a subarachnoid hemorrhage? This type of stroke happens when a major blood vessel bursts on the surface of the brain. Normally,the subarachnoid space is filled with a clear fluid, the cerebrospinal fluid (CSF). When the blood vessel bursts, blood flows into the CSF. The amount of fluid in the subarachnoid space increases andputs pressure on the brain. This extra blood and CSF is named hydrocephalus. In addition to flowingaround the brain, blood can also enter and damage the brain. Blood in the brain is called a brain hematoma or blood clot. Most of these strokes happen when a cerebral aneurysm or arteriovenous malformations bursts. An aneurysm is a weak spot in the wall of a blood vessel. A bubble often forms in this weak spot. In some cases, a cerebral aneurysm causes pain or other symptoms. In most cases, though, an aneurysm causes no symptoms until it bursts. ?? What are the symptoms of a subarachnoid hemorrhage? Any stroke is a medical emergency. If you have any of these symptoms, even if they seem to get better, call 911 right away: ??? Sudden, excruciating headache with no known cause ??? Nausea and vomiting (often with headache) ??? Sudden confusion or decrease in alertness ??? Trouble moving or loss offeeling, especially on the face, arm, or leg specifically on one side of the body ??? Sudden trouble walking, dizziness, loss of balance or coordination ??? Sudden trouble talking or understanding speech? Sudden mood changes ??? Sudden dimness, double vision, or loss of vision, particularly in one eye ??? Eyes suddenly very sensitive to light ??? Neck and shoulder pain or stiff neck ??? Seizure ?? How is a hemorrhagic stroke treated??? The short-term (acute) phase lasts from the first minutes to hours after symptoms start. During this phase, treatment focuses on easing pressure on the brain and preventing more damage. You may have a procedure or surgery to repair the burst (ruptured) aneurysm. A drain may be placed into the brainto remove CSF and ease pressure to treat the hydrocephalus. This drain can also be used to measure the brain pressure. You may get medicines through an IV line to control blood pressure. You may alsoget seizure medicine. Tests will likely be done to check for other aneurysms in the brain. If they are found, you may need surgery to reduce the risk that they will burst and bleed. Even if there is no more risk of bleeding, after a subarachnoid hemorrhage people are at risk of a stroke from tightening of the blood vessels (vasospasm) for about 14 days. After the acute phase, treatment focuses on recovery. Long-term damage from a stroke can include paralysis, trouble speaking or understanding, and trouble thinking clearly. Rehab can help reduce these effects and regain skills. Rehab starts in the hospital and generally??continues in an inpatient or outpatient facility, and eventually at home. It will focus on regaining lost skills. It may include: ??? Help regaining movement ??? Therapy for speech and language ??? Help with swallowing ??? Help reducing risk factors for another stroke, such as smoking In addition, medicines that help prevent another stroke may be given. These include medicines to control blood pressure and prevent bleeding. ?? Last Reviewed Date: 2021 ?? [employer] All rights reserved. This information is not intended as a substitute for professional medical care. Always follow your healthcare professional's instructions. ?? * Luz Elena Sanders MD: PERFORM Event Display: Patient Education Leaflets Authored Date: [id number] Neck or Spine Fractures (Broken Neck or Spine) ?? 14516 Neck or Spine Fractures (Broken Neck or Spine) The spine stretches from the base of the skull to the tailbone. It's made up of 33 bones (vertebrae) that help support the body. These bones also protect the spinal cord, the important branch of yournervous system that carries messages from??the brain to the body. A broken (fractured) bone in the neck or spine can be very serious. In some cases, it can lead to paralysis or . Emergency care is vital. Keep neck and spine injuries still Don't move a person with a neck or spine injury.??The person should lie still and wait for an emergency medical team. It can help for someone to gently hold the person's head to keep it from moving until help arrives. ?? When to go to the emergency room (ER) If you come upon a person with a neck or spine injury, call 911 for emergency help right away. Waitfor emergency services personnel to arrive and take over.??A person with a neck or spinal injury may have symptoms that include: ??? Not being awake or aware (unconscious) ??? Severe back or neck pain ??? Bruising and swelling over the neck or back ??? Tingling or loss of feeling in the hands or feet ??? Loss of bowel or bladder function ??? Loss of feeling and movement below the level of injury ??? Weakness or inability to move arms or legs ?? What to expect in the ER Here's what will happen in the ER:? The injured person??may be placed on a??spine board that prevents movement for??examination. ??? X-rays of the neck or spine may be taken. ??? An MRI or CT scan may be done. These provide more detailed images of the structures in??the neck and back. ??? Medicine??may be given to lessen pain. ?? Treatment The goal of treatment is to return the neck or spine to its normal position. ??? A minor neck fracture or simple spine fracture may be treated with a neck brace for??6 to 8 weeks until the bone heals. In this case, it's very important to do what your provider advises for home care and keep all follow-up appointments. ??? Severe or complex fractures often need surgery to ease the pressure on the spinal cord or spinal nerves and to realign the spine with metal rods, screws, and bone grafts. In that case, a spine surgeon (orthopedic surgeon or neurosurgeon) is needed. ?? Last Reviewed Date: 2021 ?? [employer] All rights reserved. This information is not intended as a substitute for professional medical care. Always follow your healthcare professional's instructions. ?? * Luz Elena Sanders MD: PERFORM Event Display: Patient Education Leaflets Authored Date: [id number] Back Fracture (Compression Fracture) ?? 40124 Back Fracture (Compression Fracture) Your spine stretches from the base of your skull to your tailbone. It's composed of 33 bones (vertebrae) stacked on top of one another. These bones are strong enough to support the weight of your upper body. But certain injuries can damage 1 or more of the vertebrae and cause them to collapse. A collapsed bone in your spine is known as a compression fracture. As you age, your bones lose calcium. This can lead to bone loss (osteopenia) or osteoporosis. This raises the risk for compression fractures and other fractures, such as in the hip. What to expect in the ER A??healthcare provider??will ask about your health history and examine you. In some cases, you may have X-rays. You also may have other tests, such as a CT scan or MRI. These tests can give detailed images of your bones and spinal cord. ?? Treatment Treatment will depend on the type and cause of the fracture. You will be given??medicine for pain. Severe fractures or those that cause nerve problems may need surgery. Many compression fractures mend on their own. ?? Follow-up As you improve, you may be given exercises to strengthen your bones. Your healthcare provider may also order a dual-energy X-ray absorptiometry (DEXA). This is a special type of X-ray that measures bone mineral density and bone loss. If the DEXA shows your bone density is lower than expected for your age, it means you have a risk for osteoporosis and bone fractures. If you have osteoporosis, your healthcare provider??may prescribe a??medicine to treat it. Sometimes you may have pain even after the bone has healed. In that case, your??healthcare provider??will discuss your options. ?? Causes of compression fracture Many compression fractures result from osteoporosis. This disease thins and weakens your bones so they can't withstand normal pressure and are more likely to break. Trauma from a car accident or hardfall can fracture even healthy vertebrae. In rare cases,a tumor in the bone may be the cause of a fracture. Sometimes vertebrae may fracture for unknown reasons. ?? When to go to the emergency room (ER) Call 911 if you've been in an accident or had a fall and have neck or back pain, especially when pain occurs with any of these symptoms: ??? Loss of control over your bowels or bladder ??? Numbness or weakness ??? High fever ??? Unexplained back pain in a person with cancer ?? Last Reviewed Date: 2021 ?? 3053-5513 [employer]. All rights reserved. This information is not intended as a substitute for professional medical care. Always follow your healthcare professional's instructions. ?? * Event Display: Provider Clarification Note Please click on pdf link to open report Patient Care team information Care Team Personnel Name: Kristine VALENTINO, Vlad Goldberg Position: [facility] Renal MD Member Role: Lifetime Consulting Physician Address: Address: [address] [place] [address] [address] [place] [address]- Name: Ashlee Brewer RN Position: [facility] RN Member Role: Primary Care Nurse Name: Angie Carl RN Position: [facility] RN Member Role: Primary Care Nurse Name: Vicky Treviño NP Position: [facility] Outreach Member Role: PCP Address: Address: [facility] [address] [place] [address]- [place] Name: Serena Genao RN Position: [facility] RN Member Role: Primary Care Nurse Care Team Related Persons Name: DIANE MOORE Address: [address] [address] Name: TOMMY MOORE
--- OUTSIDE RECORDS SUMMARY | 2024-02-15 08:39 | XMS_ITS | Continuity of Care Document ---
Author Organization [facility] Address [address] [place] [address] [address]al kramer, [address] [place] [address]- Care Team Providers Care Junior Mechanical Engineer Name Role Phone Hudson DILLARD, Vicky Primary Care Physician Encounter [facility] Date(s): 08/18/23 - 09/17/23 [facility] [address] [place] [address] Drive [address] [place] [address]- Attending Physician: AdmStorm dawkins Admitting Physician: Admtr, Ar8 Referring Physician: Admtr, Ar8 Allergies, Adverse Reactions, Alerts Substance Reaction Severity Status sulfADIAZINE strange feeling al l over my body , kind of like a hot feeling Active Versed flat lined Active Medications Accu-Chek Sandy Test Strips See Instructions, # 50 bottle, Refills 11, Tot. Refills 11, Maintenance, TEST BLOOD GLUCOSE TWICE DAILY DIRECTED, 11/05/09 13:40:55, [id number], AA Test Pharmacy-Do Not Use Start Date: 11/05/09 Status: Ordered Accu-Chek Multiclix Drum Lancets See Instructions, # 102 application, Refills 11, Tot. Refills 11, Maintenance, TEST BLOOD GLUCOSE TWICE DAILY DIRECTED, 11/05/09 13:41:03, [id number], AA Test Pharmacy-Do Not Use Start Date: [...] 9 Refills, Maintenance, 02/15/23 14:35:00 EDT, Tablet, [id number], Partial fill upon patient [...] 07/05/23 11:39:00 EST, Route to Pharmacy Electronically, [facility], Partial fill upon patient [...] Personnel Name: Kristine VALENTINO, Vlad Goldberg Position: [facility] Renal MD Member Role: Lifetime Consulting Physician Address: Address: [address] [place] [address] [address] [place] [address]- [place] Name: Ashlee Brewer RN Position: S RN Member Role: Primary Care Nurse Name: Angie Carl RN Position: S RN Member Role: Primary Care Nurse Name: Vicky Treviño NP Position: [facility] Outreach Member Role: PCP Address: Address: [address] [place] [address]- [place] Name: Serena Genao RN Position: S RN Member Role: Primary Care Nurse Care Team Related Persons Name: DIANE MOORE Address: home [address] [place] [address] Name: TOMMY MOORE
[2024-02-15] MEDS: Metoprolol Tartrate 5 MG/5 ML VIAL 2.5 MG IVPUSH (08:58)
[2024-02-15 09:00] LABS: Basophils Absolute Auto 0.1 X10*3/uL (0.0-0.2); Basophils Percent Auto 0.3 % (0-2); Eosinophils Percent Auto 0.2 % (0-4); Hemoglobin 9.5 g/dl (12.0-16.0); Imm Gran Abs Auto 0.12 X10*3/uL (0.00-0.03); Imm Gran Pct Auto 0.8 % (0.0-0.4); Lymphocytes Absolute Auto 0.7 X10*3/uL (1.2-4.9); Lymphocytes Percent Auto 4.4 % (20-40); MANUAL DIFF FLAG SCAN; Mean Corpuscular HGB Conc 30.6 g/dl (31.0-35.0); Mean Corpuscular Hemoglobin 30.8 pg (27.0-33.0); Mean Corpuscular Volume 100.6 fL (80.0-98.0); Monocytes Absolute Auto 0.5 X10*3/uL (0.1-1.2); Monocytes Percent Auto 3.3 % (2-11); Neutrophils Absolute Auto 13.7 x10*3/uL (2.0-8.3); Platelet Count 225 X10*3/uL (160-400); Red Blood Count 3.08 X10*6/uL (4.20-5.50); Red Cell Distribution Width 16.6 % (11.0-16.0); SCAN SMEAR FLAG 1; White Blood Count 15.1 X10*3/uL (4.8-10.8)
--- NOTE | 2024-02-15 09:03 | PC.NURSE ---
During Metoprolol only 1.5 mg given pt noted with hr down to 60 rapidly. Metoprolol admin stopped. SBP 90s, Provider aware. Pt feeling better. Repeat EKG to be obtained. at bedside
[2024-02-15 09:10] LABS: INTERNATIONAL NORM RATIO 1.1 (0.9-1.1); Prothrombin Time 12.8 SEC (11.1-13.3)
[2024-02-15 09:18] LABS: Alanine Aminotransferase 28 U/L (0-31); Albumin Level 2.8 g/dL (3.5-5.0); Alkaline Phosphatase 148 U/L (39-117); Anion Gap 13 (12-20); Aspartate Amino Transferase 56 U/L (5-31); Bilirubin Direct 0.5 mg/dL (0.0-0.5); Bilirubin Total 0.7 mg/dL (0.0-1.0); Blood Urea Nitrogen 23 mg/dL (9-16); Calcium 8.5 mg/dL (8.4-10.2); Carbon Dioxide 29 mmol/L (22-29); Chloride 103 mmol/L (96-108); Creatinine Clr Calc Pharmacy 42.2; Estimated Glomerular Filt Rate > 60; Glucose Random 192 mg/dL (60-115); Lipase 22 U/L (8-78); Magnesium 1.6 mg/dL (1.6-2.6); Potassium 4.7 mmol/L (3.3-5.1); Sodium 140 mmol/L (135-145); Total Protein 6.3 g/dL (6.5-8.0)
[2024-02-15 09:22] LABS: B Type Natriuretic Peptide 741 pg/mL (<100)
[2024-02-15 09:25] LABS: Troponin-I High Sensitivity 5.6 ng/L (<3.5-17.0)
--- NOTE | 2024-02-15 09:28 | PC.NURSE ---
HR remains 60-70s, NSR
[2024-02-15 09:37] LABS: SLIDE REVIEW VERIFIED
[2024-02-15 09:58] LABS: Influenza A PCR NEGATIVE (Negative); Influenza B PCR NEGATIVE (Negative); Resp Syncy Virus RNA Qual PCR NEGATIVE (Negative); SARS COV2 PCR INHOUSE NEGATIVE (Negative)
--- NOTE | 2024-02-15 10:14 | PC.NURSE ---
Bedside u/s at this time
[2024-02-15 12:04] LABS: Appearance Urine Cloudy; Color Urine Yellow; Glucose Urine UA Negative (Negative); Leukocyte Esterase Urine Large (3+) (Negative); Nitrite Urine Negative (Negative); PH 5.5 (5.0-9.0); Specific Gravity - Urine 1.015 (1.005-1.025); UMIC TRIGGER UACC YES; Urine Blood Negative (Negative); Urine Ketones Trace mg/dL (Negative); Urine Protein 100 (2+) mg/dL (Neg-Trace)
[2024-02-15 12:15] LABS: Bacteria Urine Trace (None Seen); RBC Urine 0-2 /HPF (0-2); Squamous Epithelial Cell Urine 0-2 /HPF (0-2); UACC Culture Trigger YES; WBC Urine >50 /HPF (0-5)
[2024-02-15 12:41] LABS: Glucose, Whole Blood 197 mg/dL (60-115)
[2024-02-15] MEDS: cefTRIAXone sodium 1 GM in 0.9 % Sodium Chloride 50 ML IV (13:51)
--- NOTE | 2024-02-15 13:58 | MHC.CM.ED ---
Received notification from Janice at [facility] that patient is a private pay bed hold. Patient will be d/c'd back to [facility]. Return referral made to [facility]. Continue to monitor for d/c needs.
--- NOTE | 2024-02-15 15:40 | PC.NURSE ---
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 She is on a sliding scale and takes Lispro and no need for insulin until it reaches 200. POC at the time was 197 and prior to that it was 192. Explained to this patient that there was no need to have any insulin based on her current POC. Lunch was ordered.
--- NOTE | 2024-02-15 17:42 | MHC.EDTECH ---
Patient inc and does not want to changed
--- NOTE | 2024-02-15 18:36 | MHC.EDTECH ---
Patient walked to bathroom and changed
--- NOTE | 2024-02-15 18:58 | MHC.EDTECH ---
Called [facility] to check on ETA for this patients trip that was booked by our [facility] prior to my shift. Per Glenys at [facility] there was no record of this trip. Original ETA was supposed to be 1730. I booked new trip through dispatch. New eta 2000
== END 2024-02-15 19:59 | disposition skilled nursing facility (03) ==
PROVIDERS: Emergency Provider Emergency Medicine; PCP Internal Medicine
DX: I47.10 Supraventricular tachycardia, unspecified (principal); N39.0 Urinary tract infection, site not specified; R42 Dizziness and giddiness; R60.0 Localized edema; R06.02 Shortness of breath; Z03.818 Encounter for observation for suspected exposure to other biological agents ruled out; Z79.899 Other long term (current) drug therapy
CPT/HCPCS: 0241U; 36415; 71045; 80048; 80076; 81001; 81003; 82947; 83690; 83735; 83880; 84484; 85025; 85610; 87086; 87088; 93005; 93971; 96361; 96365; 96375; 99284; 99285; J0696

== ENCOUNTER 2024-02-22 13:42 | Outpatient (AMB) | payer MEDICARE, SELFPAY ==
--- NOTE | 2024-02-22 13:43 | A.OFFVIS_ITS ---
Vital Signs 02/22/24 13:44 Height 5 ft 3 in Intake Visit Reasons: ? incisional hernia Intake Note: This patient presents for ? incisional hernia. Pt c/o; reports bloating and pain on the umbilical region, reports diarrhea, reports she will like a test order to check the good and bad bacteria in her body and to check for parasites. 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 Accompanied by: Friend Allergies sulfa Allergy (Unknown, Verified 02/22/24 13:55) diarrhea midazolam [From Versed] Adverse Reaction (Severe, Verified 02/22/24 13:55) bradycardia Medication List - Last Reconciled 02/22/24 by Zach Urrutia MD ascorbic acid (vitamin C) 500 mg PO DAILY aspirin 325 mg PO BID 4 weeks biotin 1,250 mcg PO DAILY blood sugar diagnostic (Molecular Partnersuch Ultra Blue Test Strip) Check fasting blood sugar daily at varied time blood-glucose meter As directed- poc daily at varied time cefuroxime axetil 250 mg PO BID 7 days cholecalciferol (vitamin D3) (Vitamin D3) 10 mcg PO DAILY clobetasol 0.05% 1 appl topical MOFR@0900 insulin aspart U-100 (Novolog FlexPen U-100 Insulin aspart) subcut lancets (ProNoxisTouch Delica Lancets) Check blood sugar daily at varied time lutein 20 mg PO DAILY magnesium citrate 125 mg PO BEDTIME metformin 250 mg PO QID metoprolol succinate ER 12.5 mg (1/2 x 25 mg) PO DAILY mv-wea-hssjl-calcium carb-K1 400 mcg-500 mg calcium-20 mcg (Women's 50 Plus Multivitamin) 1 tab PO DAILY omeprazole 20 mg PO DAILY 4 weeks HPI HPI ? incisional hernia: Details: 78-year-old female self referred for a question of a ventral hernia. She says that she had felt her abdominal wall to be ?lumpy? after she had di arrhea for several weeks. She says that she had the area because she was started on metformin. She has been switched to insulin. I had done repair of incarcerated femoral hernia on the right in 2018 and she wanted to be evaluated for question of other hernias. She denies abdominal pain. She is on O2 by nasal cannula. She is mostly wheelchair-bound because of a recent hip fracture. She has shortness of breath as well as baseline. [facility] Medical History (Updated 02/22/24 @ 14:12 by Zach Urrutia MD) Abdominal wall bulge Closed intertrochanteric fracture of left hip Chronic hypotension Closed hip fracture Hypotension Hypotension Tachycardia Diabetes Sepsis Pneumonia Acute sinusitis Hypoxemia Pulmonary emphysema Pneumothorax Diabetes mellitus with microalbuminuria, without long-term current use of insulin Vaccination refused by patient Underweight Intermittent palpitations Diabetes mellitus with hyperglycemia, without long-term current use of insulin Hx of fracture of wrist H/O fracture of wrist Surgical History H/O wrist surgery History of femoral hernia repair Family History Father Diabetes mellitus Mother Essential hypertension Sister Breast cancer Social History Household Members: Spouse Housing: House Do you presently have visiting nurse or other home services: No Alcohol intake: never Comment: bed alarm is not working. put chair alarm on her Patient Tobacco Use Status: Never used Tobacco e-Cigarette/Vaping Use: Never Used Second Hand Smoke Exposure: Yes ( smoker) Advance Directives Date on File: 06/16/22 service: No Current occupational status: retired Cognitive needs: No Hearing needs: No Vision needs: No Review of Systems Const Details: On wheelchair, frail looking but answers questions Denies chills and Denies fever(s) Card Denies chest pain, Reports dyspnea and Reports dyspnea on exertion Resp Denies cough, Reports dyspnea and Reports dyspnea on exertion GI Denies hematochezia, Denies change in bowel habits and Reports diarrhea Denies hematuria Musc Denies back pain and Denies limited range of motion Neuro Denies focal weakness and Denies convulsions Psych Denies depression and Denies mood swings Physical Exam Const Other: On wheelchair, appears short of breath General: comfortable and no acute distress Orientation/consciousness: patient oriented x3 Neck Neck: Yes no lymphadenopathy Resp Other: Appears short of breath Auscultation: clear to auscultation bilaterally Cardio Rate: regular rate Rhythm: regular rhythm GI Other: No palpable hernia, no palpable masses Palpation (GI): Soft to palpation, nontender and no guarding Neuro General: patient oriented x3 Assessment & Plan Assessment & Plan (1) Abdominal wall bulge: Code(s): R19.00 - Intra-abdominal and pelvic swelling, mass and lump, unspecified site Category: Medical Plan: I assured her that at this time I do not feel any palpable hernia even with Valsalva maneuvers. She has no significant pain or tenderness. I do not feel any palpable masses on the abdominal wall either Her main complaint is that she has had frequent diarrhea although she blames this on being on metformin. She has been switched to insulin I explained to her that she should continue to follow up with primary care physician. She does have multiple medical issues and is very frail looking. She scores very low on the frailty index. She can follow up with me on a p.r.n. basis. Coding Level of Care Code New Pt Level 3 (00946) Diagnoses Abdominal wall bulge R19.00
== END 2024-02-22 14:04 | disposition home or self-care (01) ==
PROVIDERS: PCP Nurse Practitioner Family; Visit Provider Surgery
DX: R19.00 Intra-abdominal and pelvic swelling, mass and lump, unspecified site (principal)
CPT/HCPCS: 99203

== ENCOUNTER → 2024-02-22 13:42 | Outpatient (BNVA) | payer MEDICARE, SELFPAY | PROVIDERS: PCP Nurse Practitioner Family; Visit Provider Surgery | DX: R19.00 Intra-abdominal and pelvic swelling, mass and lump, unspecified site (principal) | CPT/HCPCS: 99202 ==

== ENCOUNTER 2024-02-26 14:00 | Outpatient (AMB) | payer MEDICARE, SELFPAY ==
[2024-02-26 14:02] VITALS: BP 100/52; PULSE 80; BMI 15.1
--- NOTE | 2024-02-26 14:02 | MHC.OFFVIS ---
Vital Signs 02/26/24 14:02 Height 5 ft 3 in Weight 85 lb BMI 15.1 BP 100/52 L Pulse 80 Pulse Source Monitor Intake Visit Reasons: experiencing tachycardia while resting Manager Music Required: No Allergies sulfa Allergy (Unknown, Verified 02/26/24 14:04) diarrhea midazolam [From Versed] Adverse Reaction (Severe, Verified 02/26/24 14:04) bradycardia HPI HPI experiencing tachycardia while resting: Details: Parisa is a 78-year-old female with past medical history of being underweight, diabetes, emphysema, runs of SVT, who has been in the emergency room 3 times in the last 5 months with SVT treated with IV metoprolol with conversion. She has been on on metoprolol tartrate 25 mg b.i.d. which she is tolerating -she was on this dose when she presented with the most recent SVT episode. Does not further titrated due to low blood pressure readings. Today she reports that she has been doing well since her last ER visit on 02/15/2024. When she has the SVT she feels the rapid heart palpitation. She is taking the metoprolol as directed. Her breathing has been stable. She wears her oxygen continually. No PND, orthopnea or edema. No chest discomfort at rest or with activity. No lightheadedness, presyncope, syncope, falls. She has done research about her condition and would like to undergo an SVT ablation. [facility] Medical History Abdominal wall bulge Closed intertrochanteric fracture of left hip Chronic hypotension Closed hip fracture Hypotension Hypotension Tachycardia Diabetes Sepsis Pneumonia Acute sinusitis Hypoxemia Pulmonary emphysema Pneumothorax Diabetes mellitus with microalbuminuria, without long-term current use of insulin Vaccination refused by patient Underweight Intermittent palpitations Diabetes mellitus with hyperglycemia, without long-term current use of insulin Hx of fracture of wrist H/O fracture of wrist Surgical History H/O wrist surgery History of femoral hernia repair Family History Father Diabetes mellitus Mother Essential hypertension Sister Breast cancer Social History Household Members: Spouse Housing: House Do you presently have visiting nurse or other home services: No Alcohol intake: never Comment: bed alarm is not working. put chair alarm on her Patient Tobacco Use Status: Never used Tobacco e-Cigarette/Vaping Use: Never Used Second Hand Smoke Exposure: Yes ( smoker) Advance Directives Date on File: 06/16/22 service: No Current occupational status: retired Cognitive needs: No Hearing needs: No Vision needs: No Review of Systems Const All systems reviewed & are unremarkable except as noted in HPI and below ENT Denies dizziness Card Details: wears O2 continually Denies chest pain, Denies chest pain at rest, Denies chest pain with activity, Reports rapid heart rate, Denies pedal edema, Denies edema, Denies leg edema, Denies lightheadedness, Denies palpitations, Denies dyspnea, Reports dyspnea on exertion and Denies orthopnea Resp Denies cough, Denies dyspnea and Reports dyspnea on exertion GI Denies hematochezia and Denies change in stool character Musc Denies abnormal gait, Denies limited range of motion, Denies muscle cramps, Reports muscle weakness, Denies numbness, Denies radiating pain into limb, Denies stiffness and Denies tingling Neuro Denies abnormal gait, Denies dizziness, Denies numbness and Denies tingling Endo Denies palpitations Physical Exam Vital Signs: Last Vital Signs Pulse 80 02/26/24 14:02 BP 100/52 L 02/26/24 14:02 BMI result Body Mass Index 15.1 Const Other: thin, frail elderly female General: comfortable and no acute distress Orientation/consciousness: patient oriented x3 Neck Neck: Yes normal visual inspection Resp Other: wearing O2 with nasal cannula Effort & Inspection: normal respiratory effort Auscultation: clear to auscultation bilaterally, no rales, no rhonchi and no wheezes Cardio Jugular venous distension: no JVD Rate: regular rate Rhythm: regular rhythm Heart sounds: S1 normal heart sound present, S2 normal heart sound present, no murmurs and no rubs Neuro General: patient oriented x3 Extrem General: Yes normal to inspection and No no pedal edema Psych Mental Status: mental status grossly normal Speech and movement: Normal speech and movement present Office Procedures EKG Details: Today, read by me, normal sinus rhythm, biatrial enlargement, T-wave abnormality V3 through V5, no significant change from prior EKG, rate 80, QTC 440 milliseconds [id number], Complete Assessment & Plan Assessment & Plan (1) Palpitations: Code(s): R00.2 - Palpitations Category: Medical Plan: Cardiac evaluation for heart palpitations with Holter monitor 06/02/2023 for 14 days showed sinus rhythm with average heart rate 90, 24 episodes of SVT, fastest 195 beats per minute and longest 24 beats. Patient is report of palpitations did correlate with SVT. Echocardiogram done 06/02/2023 showed EF 62%, normal valves, mild pulmonary hypertension. She was then started on low-dose metoprolol. She initially thought it was making her oxygen go down and she was put on diltiazem instead. She still had breakthrough SVT and was put back on metoprolol which she is now tolerating. She had episodes of SVT in the emergency room on 09/21/2023, 01/13/2024 and 02/15/2024. He was given low-dose IV metoprolol with conversion of her rhythm. On last ER visit they were unable to further titrate her home metoprolol dose due to low blood pressure readings. Today her blood pressure is 100/52. Her EKG shows normal sinus rhythm with biatrial enlargement, T-wave abnormality anteriorly, unchanged from prior EKG rate 80. Reviewed with Dr. Dolan. Will start on digoxin 0.125 mg every other day. Digoxin level after 5 doses. Patient states she has done her own research. She is very interested in having SVT ablation. She would like referral to the acupressure therapist. Informed her that she may not be a good candidate for the procedure with her current respiratory condition and frailty. Referral will be done at her request however it will be up to the acupressure therapist as to whether the procedure will be done or not. She is aware. She has no known triggers to her SVT. Reviewed the avoidance of all caffeine, dark chocolate. Spent time reviewing vagal maneuvers with her in detail. Emergency care if needed for sustained rapid heart palpitations. Cardiology follow-up in 3 months, sooner if needed. (2) Supraventricular tachycardia: Code(s): I47.10 - Supraventricular tachycardia, unspecified Category: Medical Plan: As above (3) Elevated troponin: Code(s): R79.89 - Other specified abnormal findings of blood chemistry Category: Medical Plan: Troponin was elevated ER visit 2023 for SVT episode, peak 79.3. She has no reports of chest discomfort. She does have chronic shortness of breath from emphysema. Her elevated troponin was likely related to the elevated heart rates from SVT. Previously discussed obtaining a nuclear stress test on her and she declines. She says she is not interested and it would make her too nervous. Signs and symptoms of angina reviewed. Plan Time spent on chart review, documentation, interview, assessment Orders: Orders Digoxin 10 Days I47.10 - Supraventricular tachycardia, unspecified Referrals Cardiac Electrophysiology Referral I47.10 - Supraventricular tachycardia, unspecified Medications: New metoprolol tartrate 25 mg PO BID 30 days 60 tabs 5RF digoxin 125 mcg PO .every other day 30 days 15 tabs 5RF digoxin 125 mcg PO .every other day 15 tabs 5RF 30 days metoprolol tartrate 25 mg PO BID 60 tabs 5RF 30 days Discontinued metoprolol succinate ER Discontinued Reason: Doctor's Order 12.5 mg (1/2 x 25 mg) PO DAILY 45 tabs 1RF Coding Level of Care Code Est Pt Level 4 (75925) Diagnoses Palpitations R00.2 Supraventricular tachycardia I47.10 Elevated troponin R79.89 CPT Codes EKG - CPT: 79971-[id number], Complete ([id number]) Time Spent (min) 30
== END 2024-02-26 14:50 | disposition home or self-care (01) ==
PROVIDERS: PCP Nurse Practitioner Family; Visit Provider Nurse Practitioner Family
DX: R00.2 Palpitations (principal); I47.10 Supraventricular tachycardia, unspecified; R79.89 Other specified abnormal findings of blood chemistry
CPT/HCPCS: 93010; 99214

== ENCOUNTER → 2024-02-26 14:00 | Outpatient (BNVA) | payer MEDICARE, SELFPAY | PROVIDERS: PCP Nurse Practitioner Family; Visit Provider Nurse Practitioner Family | DX: R00.2 Palpitations (principal); I47.10 Supraventricular tachycardia, unspecified; R79.89 Other specified abnormal findings of blood chemistry | CPT/HCPCS: 93005; 99212 ==

== ENCOUNTER 2024-02-28 15:43 | Outpatient (AMB) | payer MEDICARE, SELFPAY ==
--- NOTE | 2024-02-28 15:51 | MHC.OFFVIS ---
Vital Signs 02/28/24 15:53 Height 5 ft 3 in Weight 83 lb 12.41 oz BMI 14.8 BP 84/58 L Blood Pressure Location Rt brachial Position Sitting Pulse 71 Intake Visit Reasons: T2DM Intake Note: NEW Patient presents today to re-establish treatment for Type 2 Diabetes Mellitus: Last Diabetic eye exam was on: DUE Last Podiatry exam was on: Does not see a Senior Auditor Most recent HbA1c: 10.2%, 01/13/2024 Random Glucose- 344 mg/dL, Today Accompanied by: Self / Same As Patient Allergies sulfa Allergy (Unknown, Verified 02/28/24 15:56) diarrhea midazolam [From Versed] Adverse Reaction (Severe, Verified 02/28/24 15:56) bradycardia Medication List - Last Reconciled 02/28/24 by Anna Vazquez MD ascorbic acid (vitamin C) 500 mg PO DAILY biotin 1,250 mcg PO DAILY blood sugar diagnostic (HealthyRoadTouch Ultra Blue Test Strip) Check fasting blood sugar daily at varied time blood-glucose meter As directed- poc daily at varied time cefuroxime axetil 250 mg PO BID 7 days cholecalciferol (vitamin D3) (Vitamin D3) 10 mcg PO DAILY clobetasol 0.05% 1 appl topical MOFR@0900 digoxin 125 mcg PO .every other day 30 days insulin aspart U-100 (Novolog FlexPen U-100 Insulin aspart) subcut lancets (OneTouch Delica Lancets) Check blood sugar daily at varied time lutein 20 mg PO DAILY magnesium citrate 125 mg PO BEDTIME metoprolol tartrate 25 mg PO BID 30 [address] pl-nde-wtxuj-calcium carb-K1 400 mcg-500 mg calcium-20 mcg (Women's 50 Plus Multivitamin) 1 tab PO DAILY HPI Comments Details: 78-year-old female presents today for diabetic consultation. Medical history: Emphysema, SVT, osteopenia, hip fracture Previously following with [facility] endocrinology Of note she was recently hospitalized and thereafter was in [facility]. She was adminstered insulin during this time and discharged on insulin. She left [facility] 02/21 A1C was 10.2 01/2024 Current prescribed medications: Insulin glargine 10 units daily, lispro-sliding scale she is unsure of her sliding scale. Reviewed her glucometer today 02/21-02/27. Avg 235 with range 110-385. Her last two readings were 110s. She is interested in CGM ROS CONSTITUTIONAL: Denies weight loss, fever and chills. HEENT: Denies changes in vision and hearing. RESPIRATORY: Denies SOB and cough. CV: Denies palpitations and CP GI: Denies abdominal pain, nausea, vomiting and diarrhea. : Denies dysuria and urinary frequency. MSK: Denies new myalgia and joint pain. SKIN: Denies rash and pruritus. NEUROLOGICAL: Denies headache PSYCHIATRIC: Denies recent changes in mood. PHYSICAL EXAM: GENERAL: Alert and oriented x 3. NAD EYES: EOMI. Anicteric. HENT: Moist mucous membranes. No scleral icterus. No cervical lymphadenopathy. LUNGS: Clear to auscultation bilaterally. CARDIOVASCULAR: Regular rate and rhythm. No murmur. No JVD. ABDOMEN: Soft, non-tender +bs EXTREMITIES: No edema. Non-tender. SKIN: No rashes or lesions. Warm. NEUROLOGIC: No focal neurological deficits. CN II-XII grossly intact PSYCHIATRIC: Cooperative. Appropriate mood and affect [facility] Medical History Abdominal wall bulge Closed intertrochanteric fracture of left hip Chronic hypotension Closed hip fracture Hypotension Hypotension Tachycardia Diabetes Sepsis Pneumonia Acute sinusitis Hypoxemia Pulmonary emphysema Pneumothorax Diabetes mellitus with microalbuminuria, without long-term current use of insulin Vaccination refused by patient Underweight Intermittent palpitations Diabetes mellitus with hyperglycemia, without long-term current use of insulin Hx of fracture of wrist H/O fracture of wrist Surgical History H/O wrist surgery History of femoral hernia repair Family History Father Diabetes mellitus Mother Essential hypertension Sister Breast cancer Social History Household Members: Spouse Housing: House Do you presently have visiting nurse or other home services: No Alcohol intake: never Comment: bed alarm is not working. put chair alarm on her Patient Tobacco Use Status: Never used Tobacco e-Cigarette/Vaping Use: Never Used Second Hand Smoke Exposure: Yes ( smoker) Advance Directives Date on File: 06/16/22 service: No Current occupational status: retired Cognitive needs: No Hearing needs: No Vision needs: No Physical Exam Vital Signs: Last Vital Signs Pulse 71 02/28/24 15:53 BP 84/58 L 02/28/24 15:53 BMI result Body Mass Index 14.8 Results Reviewed Results Reviewed: Laboratory Last Values Glucose (Clinic) 344 mg/dL (60-115) H 02/28/24 16:00 Assessment & Plan Assessment & Plan (1) Uncontrolled type 2 diabetes mellitus with hyperglycemia: Code(s): E11.65 - Type 2 diabetes mellitus with hyperglycemia Category: Medical Plan: Reviewed the six days of data. Not enough to make any insulin changes with especially given the last two readings were really good. I will see her back in short term follow up with 2 more weeks of readings to review prior to making any adjustments. CGM ordered. She will f/up with early childhood educator aide. (2) Insulin long-term use: Code(s): Z79.4 - buttermaker continuous churn (current) use of insulin Category: Medical Plan: see above Medications: New FreeStyle Silvina 3 Sensor (blood-glucose sensor) As directed 6 ea 3RF NS E11.65 - Type 2 diabetes mellitus with hyperglycemia insulin glargine 10 units subcut DAILY FreeStyle Silvina 3 [place] (blood-glucose meter,continuous) As directed 1 ea 0RF NS E11.65 - Type 2 diabetes mellitus with hyperglycemia Coding Level of Care Code New Pt Level 4 (96808) Diagnoses Uncontrolled type 2 diabetes mellitus with hyperglycemia E11.65 Insulin long-term use Z79.4
[2024-02-28 15:53] VITALS: BP 84/58; PULSE 71; BMI 14.8
[2024-02-28 16:03] LABS: Glucose, Whole Blood 344 mg/dL (60-115)
== END 2024-02-28 16:25 | disposition home or self-care (01) ==
PROVIDERS: PCP Internal Medicine; Visit Provider Internal Medicine
DX: E11.65 Type 2 diabetes mellitus with hyperglycemia (principal); Z79.4 Long term (current) use of insulin

== ENCOUNTER → 2024-02-28 15:43 | Outpatient (BNVA) | payer MEDICARE, SELFPAY | PROVIDERS: PCP Internal Medicine; Visit Provider Internal Medicine | DX: E11.65 Type 2 diabetes mellitus with hyperglycemia (principal); E11.69 Type 2 diabetes mellitus with other specified complication; R80.9 Proteinuria, unspecified; Z79.4 Long term (current) use of insulin | CPT/HCPCS: 82947; 99202 ==

== ENCOUNTER 2024-03-06 14:04 | Outpatient (REF) | payer MEDICARE, SELFPAY | END 2024-03-06 14:05 | disposition home or self-care (01) | LOC: HO.HOSX 14:04 | PROVIDERS: Visit Provider Orthopaedic Surgery | DX: Z13.89 Encounter for screening for other disorder (principal) ==

== ENCOUNTER 2024-03-08 14:35 | Outpatient (REF) | payer MEDICARE, SELFPAY ==
--- NOTE | ~2024-03-08 | US_ITS ---
EXAMINATION: US TRIPLEX LOWER EXTREMITY, LEFT CLINICAL INFORMATION: Leg pain and swelling COMPARISON: Venous duplex 02/15/24 TECHNIQUE: Color-flow triplex imaging with spectral analysis and compression Doppler were performed on the left lower extremity. FINDINGS: Respiratory variation, normal compression and augmented flow are noted throughout the left lower extremity. The visualized common femoral vein, superficial femoral vein, profunda femoral vein, popliteal vein and midcalf peroneal and posterior tibial venous segments show no evidence of deep venous thrombosis. There is no Finch's cyst. US/US venous duplex LE IMPRESSION: No evidence of deep venous thrombosis involving the left lower extremity. Electronically signed by: Tang Ludwig MD 03/08/2024 03:35 PM EDT
== END 2024-03-08 14:36 | disposition home or self-care (01) ==
LOC: HO.US 14:35
PROVIDERS: PCP Internal Medicine; Visit Provider Nurse Practitioner Family
DX: M25.552 Pain in left hip (principal); M79.662 Pain in left lower leg; R22.42 Localized swelling, mass and lump, left lower limb
CPT/HCPCS: 73502; 93971

== ENCOUNTER 2024-03-20 13:01 | Outpatient (REF) | payer MEDICARE, SELFPAY | END 2024-03-20 13:02 | disposition home or self-care (01) | LOC: HO.HOSX 13:01 | PROVIDERS: Visit Provider Orthopaedic Surgery | DX: Z13.89 Encounter for screening for other disorder (principal) ==

== ENCOUNTER 2024-05-22 14:46 | Outpatient (AMB) | payer MEDICARE, SELFPAY ==
--- NOTE | 2024-05-22 14:53 | A.OFFVIS_ITS ---
Vital Signs 05/22/24 15:47 Height 5 ft 3 in Weight 83 lb BMI 14.7 BP 100/62 Blood Pressure Location Rt brachial Position Sitting Pulse 74 Pulse Source Pulse Oximeter Intake Visit Reasons: T2DM/Confirmed Intake Note: Patient presents today for a follow-up on Type 2 Diabetes Mellitus: Last Diabetic eye exam was on: DUE Last Podiatry exam was on: Does not see a Food Cashier Most recent HbA1c: 8.3%, 05/22/2024 Random Glucose- 160 mg/dL, Today Accompanied by: Self / Same As Patient Allergies sulfa Allergy (Unknown, Verified 02/28/24 15:56) diarrhea midazolam [From Versed] Adverse Reaction (Severe, Verified 02/28/24 15:56) bradycardia HPI Comments Details: 78-year-old female presents today for diabetic follow up Medical history: Emphysema, SVT, osteopenia, hip fracture Previously following with [facility] A1C 8.3% from 10.2 01/2024 Current prescribed medications: Insulin glargine 10 units daily, lispro-sliding scale she is unsure of her sliding scale-not using She just finished her about with early childhood special educator specialist-she set up her CGM and her sensor is in place. Review of recent glucose readings with fasting readings 70s-160. ROS CONSTITUTIONAL: Denies weight loss, fever and chills. HEENT: Denies changes in vision and hearing. RESPIRATORY: Denies SOB and cough. CV: Denies palpitations and CP GI: Denies abdominal pain, nausea, vomiting and diarrhea. : Denies dysuria and urinary frequency. MSK: Denies new myalgia and joint pain. SKIN: Denies rash and pruritus. NEUROLOGICAL: Denies headache PSYCHIATRIC: Denies recent changes in mood. PHYSICAL EXAM: GENERAL: Alert and oriented x 3. NAD EYES: EOMI. Anicteric. HENT: Moist mucous membranes. No scleral icterus. No cervical lymphadenopathy. LUNGS: Clear to auscultation bilaterally. CARDIOVASCULAR: Regular rate and rhythm. No murmur. No JVD. ABDOMEN: Soft, non-tender +bs EXTREMITIES: No edema. Non-tender. SKIN: No rashes or lesions. Warm. NEUROLOGIC: No focal neurological deficits. CN II-XII grossly intact PSYCHIATRIC: Cooperative. Appropriate mood and affect [facility] Medical History Abdominal wall bulge Closed intertrochanteric fracture of left hip Chronic hypotension Closed hip fracture Hypotension Hypotension Tachycardia Diabetes Sepsis Pneumonia Acute sinusitis Hypoxemia Pulmonary emphysema Pneumothorax Diabetes mellitus with microalbuminuria, without long-term current use of insulin Vaccination refused by patient Underweight Intermittent palpitations Diabetes mellitus with hyperglycemia, without long-term current use of insulin Hx of fracture of wrist H/O fracture of wrist Surgical History H/O wrist surgery History of femoral hernia repair Family History Father Diabetes mellitus Mother Essential hypertension Sister Breast cancer Social History Household Members: Spouse Housing: House Do you presently have visiting nurse or other home services: No Alcohol intake: never Comment: bed alarm is not working. put chair alarm on her Patient Tobacco Use Status: Never used Tobacco e-Cigarette/Vaping Use: Never Used Second Hand Smoke Exposure: Yes ( smoker) Advance Directives Date on File: 06/16/22 service: No Current occupational status: retired Cognitive needs: No Hearing needs: No Vision needs: No Physical Exam Vital Signs: Last Vital Signs Pulse 74 05/22/24 15:47 BP 100/62 05/22/24 15:47 BMI result Body Mass Index 14.7 Results AMB Hemoglobin A1c AMB Hemoglobin A1c 8.3 % Last Edit by ALICE Harrison on 05/22/24 15:41 Results Reviewed Results Reviewed: Laboratory Last Values Glucose (Clinic) 160 mg/dL (60-115) H 05/22/24 15:30 Hgb A1c (Clinic) 8.3 % (4.0-6.0) H 05/22/24 14:54 Assessment & Plan Assessment & Plan (1) Uncontrolled type 2 diabetes mellitus with hyperglycemia: Code(s): E11.65 - Type 2 diabetes mellitus with hyperglycemia Category: Medical Plan: She is having borderline low readings at times. The CGM data will be very helpful toward directing medication changes. Have told her that is she has frequent low blood glucose readings to decrease her lantus dosing. She will return in 2 weeks Orders: Orders AMB Hemoglobin A1c 05/22/24 E11.29 - Type 2 diabetes mellitus with other diabetic kidney complication, R80.9 - Proteinuria, unspecified Medications: New pen needle, diabetic (Comfort EZ Pen [place]) once daily 100 ea 3RF E11.65 - Type 2 diabetes mellitus with hyperglycemia, Z79.4 - care home (current) use of insulin Coding Level of Care Code Est Pt Level 4 (20897) Diagnoses Uncontrolled type 2 diabetes mellitus with hyperglycemia E11.65
[2024-05-22 15:35] LABS: Glucose, Whole Blood 160 mg/dL (60-115)
[2024-05-22 15:47] VITALS: BP 100/62; PULSE 74; BMI 14.7
== END 2024-05-22 15:49 | disposition home or self-care (01) ==
PROVIDERS: PCP Internal Medicine; Visit Provider Internal Medicine
DX: E11.65 Type 2 diabetes mellitus with hyperglycemia (principal)

== ENCOUNTER 2024-05-22 14:46 | Outpatient (AMB) | payer MEDICARE, SELFPAY ==
--- NOTE | 2024-05-22 15:23 | MHC.AMDMED ---
Intake Intake Visit Reasons: CGM Radiology Therapist Required: No Accompanied by: Self / Same As Patient Allergies sulfa Allergy (Unknown, Verified 02/28/24 15:56) diarrhea midazolam [From Versed] Adverse Reaction (Severe, Verified 02/28/24 15:56) bradycardia HPI Comprehensive Diabetes Asmnt Most Recent Diabetes Results: Hemoglobin A1c 8.2 % 08/03/18 Microalb/Creat Ratio 1205.6 ug/mg cr (<30) H 02/14/23 Cholesterol 201 mg/dL (<200) H 02/14/23 HDL Cholesterol 101 mg/dL (>40) 02/14/23 Triglycerides 69 mg/dL (<150) 02/14/23 Creatinine 0.80 mg/dL (0.5-1.4) 02/15/24 Blood Urea Nitrogen 23 mg/dL (9-16) H 02/15/24 Sodium 140 mmol/L (135-145) 02/15/24 Potassium 4.7 mmol/L (3.3-5.1) 02/15/24 Chloride 103 mmol/L (96-108) 02/15/24 Carbon Dioxide 29 mmol/L (22-29) 02/15/24 Calcium 8.5 mg/dL (8.4-10.2) 02/15/24 AST 56 U/L (5-31) H 02/15/24 ALT 28 U/L (0-31) 02/15/24 Total Protein 6.3 g/dL (6.5-8.0) L 02/15/24 Albumin 2.8 g/dL (3.5-5.0) L 02/15/24 [facility] Medical History Abdominal wall bulge Closed intertrochanteric fracture of left hip Chronic hypotension Closed hip fracture Hypotension Hypotension Tachycardia Diabetes Sepsis Pneumonia Acute sinusitis Hypoxemia Pulmonary emphysema Pneumothorax Diabetes mellitus with microalbuminuria, without long-term current use of insulin Vaccination refused by patient Underweight Intermittent palpitations Diabetes mellitus with hyperglycemia, without long-term current use of insulin Hx of fracture of wrist H/O fracture of wrist Surgical History H/O wrist surgery History of femoral hernia repair Family History Father Diabetes mellitus Mother Essential hypertension Sister Breast cancer Social History Household Members: Spouse Housing: House Do you presently have visiting nurse or other home services: No Alcohol intake: never Comment: bed alarm is not working. put chair alarm on her Patient Tobacco Use Status: Never used Tobacco e-Cigarette/Vaping Use: Never Used Second Hand Smoke Exposure: Yes ( smoker) Advance Directives Date on File: 06/16/22 service: No Current occupational status: retired Cognitive needs: No Hearing needs: No Vision needs: No Assessment & Plan Assessment & Plan (1) Uncontrolled type 2 diabetes mellitus with hyperglycemia: Code(s): E11.65 - Type 2 diabetes mellitus with hyperglycemia Plan: Patient at visit to set up an insert Silvina 3 sensor with [place] Instructed patient sensors water proof you can shower, or swim do not submerge sensor in water for over 30 minutes Is sensor falls off cannot put back in you need to replace sensor, customer service number given to patient for sensor replacement Sensor placed on the back of Left arm Patient left visit with sensor in warmup Reviewed how to interpret trend arrows Reminded patient that to check finger sticks if symptoms do not match sensor reading. Discussed lag time between finger stick and sensor data.? Instructed patient she should always keep blood glucometer for backup testing if needed Reviewed delay of CGM from fingersticks Reminded pt that if symptoms do not match sensor still needs to check fingersticks. Patient has no recent glucose readings, however reviewed readings from March and April, patient has fasting glucose levels in the 70s Reviewed with patient how to treat hypoglycemia with rule of 15s, hypoglycemia handout given Portions of this note were created using voice recognition software, please excuse any words or phrases that may have been misinterpreted. Patient Instructions: Patient instruction: CGM provides information on blood glucose control throughout the day, including hyperglycemia and hypoglycemia. ? Continue to monitor blood glucose as instructed. Follow nutrition guidelines provided. Report any discomfort promptly to health care provider. ?Stay well-hydrated. You can bathe ,shower, swim and exercise while wearing the glucose sensor. Do not submerge glucose sensor in water for more than 30 minutes. Follow-up with Diabetes Education nurse in 2 weeks Coding Level of Care Code Est Pt Level 1 (19045) Diagnoses Uncontrolled type 2 diabetes mellitus with hyperglycemia E11.65
== END 2024-05-22 15:49 | disposition home or self-care (01) ==
PROVIDERS: PCP Internal Medicine; Visit Provider Registered Nurse Diabetes Educator
DX: E11.65 Type 2 diabetes mellitus with hyperglycemia (principal)

== ENCOUNTER → 2024-05-22 14:46 | Outpatient (BNVA) | payer MEDICARE, SELFPAY | PROVIDERS: PCP Internal Medicine; Visit Provider Internal Medicine | DX: E11.65 Type 2 diabetes mellitus with hyperglycemia (principal) | CPT/HCPCS: 82947; 83036; 99211; 99212 ==

== ENCOUNTER 2024-06-12 14:40 | Outpatient (AMB) | payer MEDICARE, SELFPAY ==
--- NOTE | 2024-06-12 15:47 | A.OFFVIS_ITS ---
Intake Intake Visit Reasons: CGM Lightning Rod Erector Required: No Accompanied by: Self / Same As Patient Allergies sulfa Allergy (Unknown, Verified 06/12/24 14:42) diarrhea midazolam [From Versed] Adverse Reaction (Severe, Verified 06/12/24 14:42) bradycardia HPI Comprehensive Diabetes Asmnt Most Recent Diabetes Results: Hemoglobin A1c 8.2 % 08/03/18 Microalb/Creat Ratio 1205.6 ug/mg cr (<30) H 02/14/23 Cholesterol 201 mg/dL (<200) H 02/14/23 HDL Cholesterol 101 mg/dL (>40) 02/14/23 Triglycerides 69 mg/dL (<150) 02/14/23 Creatinine 0.80 mg/dL (0.5-1.4) 02/15/24 Blood Urea Nitrogen 23 mg/dL (9-16) H 02/15/24 Sodium 140 mmol/L (135-145) 02/15/24 Potassium 4.7 mmol/L (3.3-5.1) 02/15/24 Chloride 103 mmol/L (96-108) 02/15/24 Carbon Dioxide 29 mmol/L (22-29) 02/15/24 Calcium 8.5 mg/dL (8.4-10.2) 02/15/24 AST 56 U/L (5-31) H 02/15/24 ALT 28 U/L (0-31) 02/15/24 Total Protein 6.3 g/dL (6.5-8.0) L 02/15/24 Albumin 2.8 g/dL (3.5-5.0) L 02/15/24 [facility] Medical History Abdominal wall bulge Closed intertrochanteric fracture of left hip Chronic hypotension Closed hip fracture Hypotension Hypotension Tachycardia Diabetes Sepsis Pneumonia Acute sinusitis Hypoxemia Pulmonary emphysema Pneumothorax Diabetes mellitus with microalbuminuria, without long-term current use of insulin Vaccination refused by patient Underweight Intermittent palpitations Diabetes mellitus with hyperglycemia, without long-term current use of insulin Hx of fracture of wrist H/O fracture of wrist Surgical History H/O wrist surgery History of femoral hernia repair Family History Father Diabetes mellitus Mother Essential hypertension Sister Breast cancer Social History Household Members: Spouse Housing: House Do you presently have visiting nurse or other home services: No Alcohol intake: never Comment: bed alarm is not working. put chair alarm on her Patient Tobacco Use Status: Never used Tobacco e-Cigarette/Vaping Use: Never Used Second Hand Smoke Exposure: Yes ( smoker) Advance Directives Date on File: 06/16/22 service: No Current occupational status: retired Cognitive needs: No Hearing needs: No Vision needs: No Assessment & Plan Assessment & Plan (1) Type 2 diabetes mellitus: Code(s): E11.9 - Type 2 diabetes mellitus without complications Qualifiers: Diabetes mellitus complication status: with hypoglycemia Diabetes mellitus senior care insulin use: with senior care use Plan: Learning objectives: The patient was provided with verbal and written education on the following topics as outlined below. The patient met all learning objectives and was able to verbalize understanding and provide teach back of education topics discussed . The patient was provided with the opportunity to ask questions and all questions were answered. Patient Assessment Patient questions/concerns, Pt last A1c 8.3% in 05/2024. Reviewed patient's CGM data, patient is having postprandial hyperglycemia starting after breakfast. Glucose remains above target for remainder of the day. Patient is currently taking Lantus 10 units daily, overnight glucose dropped significantly at today's visit with provider Lantus was reduced to 8 units daily Patient is not currently taking Humalog before meals Patient was able to insert Silvina 3 sensor at today's visit in left arm, patient left visit with sensor in warmup What is Diabetes? Pathophysiology How the body produces and uses insulin Identify type of DM Risk factors Signs of Diabetes Brief overview of Diabetes Management Monitoring blood sugar Following a meal plan Regular exercise Maintaining a healthy weight Taking medication as needed Members of the care team (PCP, RN, MA, RD, CDE, calender worker helper) Blood glucose monitoring When/how often to test Target blood sugar ranges Uses 3 FreeStyle Silvina with reader Average glucose for past 14 days 201 mg/dL Above target 58% At target 42% Below target 0% Introduction to Nutrition Importance of healthy diet in managing DM Diet is personalized to individual preference Review patient?s regular diet/food preferences Who prepares meals/does food shopping/ Dining out?/ Barriers? How diet effects glucose Eating 3 balanced meals a day with small, healthy snacks between meals Review food groups Carbohydrates: What is a carbohydrate/Which food/food groups are considered carbohydrates Effect of carbohydrates on blood glucose Portion sizes Reading food labels Basic carb counting (if applicable per nursing assessment) Plate method Meal planning Recommendations: Follow plate method, consistent carbs and read nutritional labels. Smart Goal:Pt will reduce carbohydrates at breakfast Educational Materials: The patient was provided with the following written educational materials: Planning Healthy Meals Handout Patient Response to instructions: Comprehension of Instructions: Fair Readiness to make changes: Contemplation How confident they feel about making changes: Positive Portions of this note were created using voice recognition software, please excuse any words or phrases that may have been misinterpreted. Patient Instructions: Include regular daily activity. ADA recommends 30 minutes of exercise 5 days a week. Weight loss talk to PCP or Senior Business Architect before starting new plan. Test blood sugar as directed; Fasting and 2hpp largest meal. Watch trends in results. Utilize results and to assess how food, physical activity and medications affect blood sugar results. Bring glucometer or CGM to next visit. Be knowledgeable about diabetes medication, its action, side effects, efficacy, toxicity, prescribed dosage, appropriate timing and frequency of administration, effect of missed and delayed doses and instructions for storage, travel and safety. Problem solving techniques to monitor hypo/hyperglycemia episodes and treatments. Reduce risk reduction behaviors, smoking cessation, regular eye, foot and dental examinations. Coding Level of Care Code Est Pt Level 1 (85067) Diagnoses Type 2 diabetes mellitus E11.9 Diabetes mellitus complication status: with hypoglycemia Diabetes mellitus senior care insulin use: with senior care use
== END 2024-06-12 16:20 | disposition home or self-care (01) ==
PROVIDERS: PCP Internal Medicine; Visit Provider Registered Nurse Diabetes Educator
DX: E11.9 Type 2 diabetes mellitus without complications (principal)

== ENCOUNTER 2024-06-12 14:40 | Outpatient (AMB) | payer MEDICARE, SELFPAY ==
[2024-06-12 14:42] VITALS: BP 116/78; PULSE 74; BMI 14.8
--- NOTE | 2024-06-12 14:42 | A.OFFVIS_ITS ---
Vital Signs 06/12/24 14:42 Height 5 ft 3 in Weight 83 lb 12.41 oz BMI 14.8 BP 116/78 Blood Pressure Location Rt brachial Position Sitting Pulse 74 Pulse Source Pulse Oximeter Intake Visit Reasons: T2DM Intake Note: Patient presents today for a follow-up on Type 2 Diabetes Mellitus: Last Diabetic eye exam was on: DUE Last Podiatry exam was on: Does not see a Restaurant Line Server Most recent HbA1c: 8.3%, 05/22/2024 Random Glucose- 174 mg/dL, Today Accompanied by: Self / Same As Patient Allergies sulfa Allergy (Unknown, Verified 06/12/24 14:42) diarrhea midazolam [From Versed] Adverse Reaction (Severe, Verified 06/12/24 14:42) bradycardia HPI Comments Details: 78-year-old female presents today for diabetic follow up Medical history: Emphysema, SVT, osteopenia, hip fracture A1C 8.3% 05/22/24 from 10.2 01/2024 Current prescribed medications: Insulin glargine 10 units daily, not taking lispro CGM reviewed-58% use, Avg 201 with 58% high, 42% TGT, 0% low though does have readings in 60s some ams. Hyperglycemia is most pronounced from 6pm-midnight. She usually is taking a snack at around 4pm-coffee and fiber one 16gm carbs and then dinner 6-8pm. She has been eating a little heavier over the holidays, some potatos some bread etc. Keeps some juice beside the bed if she feels low in the morning. She sometimes falls back asleep after waking up. Weight is stable but low at 83lbs ROS CONSTITUTIONAL: Denies weight loss, fever and chills. HEENT: Denies changes in vision and hearing. RESPIRATORY: Denies SOB and cough. CV: Denies palpitations and CP GI: Denies abdominal pain, nausea, vomiting and diarrhea. : Denies dysuria and urinary frequency. MSK: Denies new myalgia and joint pain. SKIN: Denies rash and pruritus. NEUROLOGICAL: Denies headache PSYCHIATRIC: Denies recent changes in mood. PHYSICAL EXAM: GENERAL: Alert and oriented x 3. NAD EYES: EOMI. Anicteric. HENT: Moist mucous membranes. No scleral icterus. No cervical lymphadenopathy. LUNGS: Clear to auscultation bilaterally. CARDIOVASCULAR: Regular rate and rhythm. No murmur. No JVD. ABDOMEN: Soft, non-tender +bs EXTREMITIES: No edema. Non-tender. SKIN: No rashes or lesions. Warm. NEUROLOGIC: No focal neurological deficits. CN II-XII grossly intact PSYCHIATRIC: Cooperative. Appropriate mood and affect [facility] Medical History Abdominal wall bulge Closed intertrochanteric fracture of left hip Chronic hypotension Closed hip fracture Hypotension Hypotension Tachycardia Diabetes Sepsis Pneumonia Acute sinusitis Hypoxemia Pulmonary emphysema Pneumothorax Diabetes mellitus with microalbuminuria, without long-term current use of insulin Vaccination refused by patient Underweight Intermittent palpitations Diabetes mellitus with hyperglycemia, without long-term current use of insulin Hx of fracture of wrist H/O fracture of wrist Surgical History H/O wrist surgery History of femoral hernia repair Family History Father Diabetes mellitus Mother Essential hypertension Sister Breast cancer Social History Household Members: Spouse Housing: House Do you presently have visiting nurse or other home services: No Alcohol intake: never Comment: bed alarm is not working. put chair alarm on her Patient Tobacco Use Status: Never used Tobacco e-Cigarette/Vaping Use: Never Used Second Hand Smoke Exposure: Yes ( smoker) Advance Directives Date on File: 06/16/22 service: No Current occupational status: retired Cognitive needs: No Hearing needs: No Vision needs: No Physical Exam Vital Signs: BMI result Body Mass Index 14.8 Assessment & Plan Assessment & Plan (1) Type 2 diabetes mellitus: Code(s): E11.9 - Type 2 diabetes mellitus without complications Category: Medical Qualifiers: Diabetes mellitus long chain quiller tender insulin use: with care home use Diabetes mellitus complication status: with hypoglycemia Plan: Decrease lantus to 8 units daily She will try to cut back on carbohydrates at dinner and incorporate low carb high calorie options Meeting with NABIL Cooper today as well. Medications: Changed From Lantus Solostar U-100 Insulin (insulin glargine) 10 units (0.1 mL) subcut QPM 15 mL 3RF NS E11.65 - Type 2 diabetes mellitus with hyperglycemia, Z79.4 - [facility] (current) use of insulin To Lantus Solostar U-100 Insulin (insulin glargine) 8 units (0.08 mL) subcut QPM 15 mL 3RF NS E11.65 - Type 2 diabetes mellitus with hyperglycemia, Z79.4 - penitentiary (current) use of insulin Coding Level of Care Code Est Pt Level 4 (50432) Diagnoses Type 2 diabetes mellitus E11.9 Diabetes mellitus long chain quiller tender insulin use: with care home use Diabetes mellitus complication status: with hypoglycemia
[2024-06-12 14:52] LABS: Glucose, Whole Blood 174 mg/dL (60-115)
== END 2024-06-12 16:20 | disposition home or self-care (01) ==
PROVIDERS: PCP Internal Medicine; Visit Provider Internal Medicine
DX: E11.9 Type 2 diabetes mellitus without complications (principal)

== ENCOUNTER → 2024-06-12 14:40 | Outpatient (BNVA) | payer MEDICARE, SELFPAY | PROVIDERS: PCP Internal Medicine; Visit Provider Registered Nurse Diabetes Educator | DX: E11.9 Type 2 diabetes mellitus without complications (principal); Z79.4 Long term (current) use of insulin | CPT/HCPCS: 82947; 99211; 99212 ==

== ENCOUNTER 2024-06-14 08:37 | Outpatient (REF) | payer MEDICARE, SELFPAY ==
--- NOTE | ~2024-06-14 | XR_ITS ---
EXAMINATION: Left hip 2 views with and without pelvis. CLINICAL INDICATION: Pain left hip. COMPARISON: Left hip 03/08/2024. FINDINGS: There is a intertrochanteric fracture stabilized with intramedullary short femoral monica and screw through the neck. The fracture fragments are in alignment. No change since previous study 03/08/2024. There is no hardware loosening seen. There is no recurrent fracture appreciated. There is no dislocation. There is mild osteopenia of the pelvic bones and the femoral head. The soft tissues are normal. XR/XR hip LT min 2V IMPRESSION: Left hip intertrochanteric fracture stabilized with short intramedullary monica in the left femoral neck screw and alignment. The fracture appears healed. No recurrent fractures seen. No hardware malfunction. Electronically signed by: Eulalio Nicholas MD 06/19/2024 12:25 PM [facility]
== END 2024-06-14 08:38 | disposition home or self-care (01) ==
LOC: HO.HOSX 08:37
PROVIDERS: Visit Provider Physician Assistant
DX: M25.552 Pain in left hip (principal); S72.142D Displaced intertrochanteric fracture of left femur, subsequent encounter for closed fracture with routine healing; Z98.890 Other specified postprocedural states
CPT/HCPCS: 73502; 99212

== ENCOUNTER 2024-06-14 14:37 | Outpatient (AMB) | payer MEDICARE, SELFPAY ==
--- NOTE | 2024-06-14 14:42 | MHC.OFFVIS ---
Vital Signs 06/14/24 14:57 Height 5 ft 3 in Weight 83 lb BMI 14.7 Intake Visit Reasons: OV- Lt hip pain, s/p L IMN 01/14/24 Intake Note: Anu is a 78 year old female who presents today for a follow up of her left IMN 01/14/24 Patient is doing well, however she feels weakness on her left lower extremity. Allergies sulfa Allergy (Unknown, Verified 06/14/24 14:43) diarrhea midazolam [From Versed] Adverse Reaction (Severe, Verified 06/14/24 14:43) bradycardia HPI HPI OV- Lt hip pain, s/p L IMN 01/14/24 : Details: Patient presents to the office today status post left hip IM nail performed on 01/14/[address] Tay. Patient states that she was working with physical therapy he was coming to her house. Unfortunately she never transition to outpatient physical therapy and start performing her home exercise program. She reports that she has been lax with performing physical therapy exercises. She additionally reports that she has weakness in the left lower extremity. [facility] Medical History Abdominal wall bulge Closed intertrochanteric fracture of left hip Chronic hypotension Closed hip fracture Hypotension Hypotension Tachycardia Diabetes Sepsis Pneumonia Acute sinusitis Hypoxemia Pulmonary emphysema Pneumothorax Diabetes mellitus with microalbuminuria, without long-term current use of insulin Vaccination refused by patient Underweight Intermittent palpitations Diabetes mellitus with hyperglycemia, without long-term current use of insulin Hx of fracture of wrist H/O fracture of wrist Surgical History H/O wrist surgery History of femoral hernia repair Family History Father Diabetes mellitus Mother Essential hypertension Sister Breast cancer Social History Household Members: Spouse Housing: House Do you presently have visiting nurse or other home services: No Alcohol intake: never Comment: bed alarm is not working. put chair alarm on her Patient Tobacco Use Status: Never used Tobacco e-Cigarette/Vaping Use: Never Used Second Hand Smoke Exposure: Yes ( smoker) Advance Directives Date on File: 06/16/22 service: No Current occupational status: retired Cognitive needs: No Hearing needs: No Vision needs: No Review of Systems Const All systems reviewed & are unremarkable except as noted in HPI and below Physical Exam Const General: cooperative, healthy appearing and no acute distress Resp Effort & Inspection: normal respiratory effort and able to speak in complete sentences Cardio Rate: regular rate Peripheral pulses: Peripheral pulses 2+ throughout Skin Lesions: no lesions Rashes: no rashes Extrem Other: Right hip: Normal to inspection. No ecchymosis, erythema, or edema. No tenderness to palpation over the greater trochanteric bursa. 3/5 strength with resisted hip flexion, knee extension, abduction, and abduction. Able to perform straight leg raise. NVI. Assessment & Plan Assessment & Plan (1) Closed intertrochanteric fracture of left hip: Code(s): S72.142A - Displaced intertrochanteric fracture of left femur, initial encounter for closed fracture Category: Medical Qualifiers: Encounter type: initial encounter Fracture alignment: displaced Qualified Code(s): S72.142A - Displaced intertrochanteric fracture of left femur, initial encounter for closed fracture (2) Left hip pain: Code(s): M25.552 - Pain in left hip Category: Medical Plan Patient presents to the office today status post left hip IM nail performed on 01/14/[address] Tay. Patient states that she was working with physical therapy he was coming to her house. Unfortunately she never transition to outpatient physical therapy and start performing her home exercise program. She reports that she has been lax with performing physical therapy exercises. She additionally reports that she has weakness in the left lower extremity. I discussed the role with home physical therapy for this patient. I placed a referral to the [facility] to begin services. She states that she will try to be more diligent with performing exercises. We discussed the importance of strengthening. I would like to see the patient back in 6 weeks, sooner if needed. X-rays obtained in the office today of the left hip and pelvis were reviewed by me and reveal intact orthopedic hardware with routine healing. Orders: Orders XR hip LT min 2V w/wo pel Today M25.559 - Pain in unspecified hip [facility]errals [facility] Referral M25.552 - Pain in left hip, S72.142A - Displaced intertrochanteric fracture of left femur, initial encounter for closed fracture Coding Level of Care Code Est Pt Level 3 (64320) Diagnoses Closed displaced intertrochanteric fracture of left femur, initial encounter S72.142A Encounter type: initial encounter Fracture alignment: displaced Left hip pain M25.552
[2024-06-14 14:57] VITALS: BMI 14.7
== END 2024-06-14 15:05 | disposition home or self-care (01) ==
PROVIDERS: PCP Internal Medicine; Visit Provider Physician Assistant
DX: S72.142A Displaced intertrochanteric fracture of left femur, initial encounter for closed fracture (principal); M25.552 Pain in left hip
CPT/HCPCS: 99213

== ENCOUNTER 2024-06-24 03:19 | Emergency (ER) | payer MEDICARE, SELFPAY ==
--- NOTE | ~2024-06-24 | XR_ITS ---
CLINICAL HISTORY: pain, fall 2 view left knee Comparison: None Findings: The exam is partially limited by material underlying the knee. Bones intact. No dislocations. No significant arthritic change or erosions. Possible lipohemarthrosis. No radiopaque foreign body. IMPRESSION: 1. Possible lipohemarthrosis without readily apparent etiology. Consider CT to further evaluate This document has been electronically signed by: David Lindo MD on 06/24/2024 05:01:49
--- NOTE | ~2024-06-24 | CT_ITS ---
CLINICAL HISTORY: Pain, unable to walk Exam: CT of the left knee without intravenous contrast. Comparison: Radiographs from earlier today. Findings: Patient's radiographs demonstrated a large lipohemarthrosis. CT was suggested for further evaluation. CT confirms a nondepressed fracture of the tibial plateau. This is best appreciated on the coronal reconstructions. Fracture seen along the central portion of the tibial spines extending to the medial tibial plateau where there is subtle cortical disruption of the medial cortex. No definitive extension into the lateral tibial plateau is evident. No fracture of the patella, femur, or fibula is identified. Bones are severely osteopenic. Large lipohemarthrosis as evident on the patient's earlier radiographs. Impression: Nondepressed tibial plateau fracture as above with large lipohemarthrosis. This document has been electronically signed by: Mahad Grimes MD on 06/24/2024 06:44:44
--- NOTE | ~2024-06-24 | CT_ITS ---
CLINICAL HISTORY: Unable to ambulate due to pain, r o fx CT pelvis without contrast Comparison: CR - XR HIP LT W PEL 1V - 06/24/24 04:26 EST CR - XR HIP LT W PEL 1V - 06/24/24 04:26 EST DX/MS/SR - XR HIP LT MIN 2V - 06/14/24 14:41 EST CR/MS/SR - XR HIP LT MIN 2V W/WO PEL - 03/08/24 15:08 EDT CR/SR - XR HIP LT W PEL1V - 01/13/24 13:[address]/REG/SR - CT PELVIS WO IV CON - 07/01/23 14:02 EST Findings: Radiographs from January 13, 2024 demonstrated a comminuted and impacted intertrochanteric fracture of the left femur. Patient's subsequently underwent open reduction and internal fixation with placement of an antegrade intramedullary moncia, spanning gamma nail, and single distal interlocking screw. The surgical hardware is again identified in the patient's current CT scan. No fracture of the surgical hardware is evident. There is unchanged alignment of the intertrochanteric intertrochanteric fracture of the left femur with numerous small fracture fragments. A moderate-sized left hip joint effusion. There is developing bony ankylosis at the fracture line without complete solid bony ankylosis identified at this time. Lesser trochanteric fracture fragment is displaced medially by approximately 8 mm. Bones are osteopenic. No new fractures are identified. Specifically, no acetabular fracture is evident. No fracture of the pubic rami is seen. No sacral fracture is evident. No fracture about the right hip is seen. Severe sigmoid diverticulosis without diverticulitis. Impression: Prior intertrochanteric fracture of the left femur status post open reduction and internal fixation. No definitive acute fracture identified. This document has been electronically signed by: Mahad Grimes MD on 06/24/2024 06:47:11
--- NOTE | ~2024-06-24 | XR_ITS ---
CLINICAL HISTORY: fall, pain 2 view, pelvis and left hip Comparison: None Findings: Portions of the pelvis are obscured by feces and bowel gas. No acute fracture or dislocation. Iatrogenic changes with surgical hardware noted in the left femur. No significant arthritic change. The soft tissues are unremarkable. IMPRESSION: No acute findings. This document has been electronically signed by: David Lindo MD on 06/24/2024 05:02:17
[2024-06-24 03:28] VITALS: BP 105/63; BP 124/78; PULSE 71; PULSE 77; RESP 16; TEMP 36.9; O2SAT 90; O2SAT 94; BMI 15.1
--- NOTE | 2024-06-24 04:12 | ED_ITS ---
HPI - Fall General Chief Complaint: Fall Stated Complaint: fall hip and knee pain Time Seen by Provider: 06/24/24 03:34 Source: patient and EMS Mode of arrival: EMS Limitations: no limitations History of Present Illness ED Provider: Dr. Nroa Marcelino HPI Narrative: Patient comes to the emergency room complaining of a mechanical fall this evening. Patient states that she was trying to get off the bathroom, had a mechanical fall, landed on her right hip. Patient states that also her left knee hurts. Patient states that a few months ago, proximally 4, she had a total hip replacement on the left which at this time is not hurting. Patient states that she was not able to get up by herself, she would help. As well as she is not moving she has no pain but if she tries to move, the hip hurts significantly. When EMS arrived to potato picker the patient, patient refused C-spine precautions. Patient denies hitting her head or losing consciousness. Patient denies being on blood thinners. Related Data Home Medications ?Medication ?Instructions ?Recorded ?Confirmed ascorbic acid (vitamin C) 500 mg 500 mg PO DAILY 05/26/20 02/28/24 capsule lutein 20 mg capsule 20 mg PO DAILY 05/26/20 02/28/24 magnesium citrate 125 mg capsule 125 mg PO BEDTIME 05/26/20 02/28/24 lyuxhfml-rmv-aarig ac 400 1 tab PO DAILY 05/26/20 02/28/24 mcg-calcium carb 500 mg-vit K1 20 mcg tablet (Women's 50 Plus Multivitamin) cholecalciferol (vitamin D3) 10 10 mcg PO DAILY 07/11/22 02/28/24 mcg (400 unit) tablet (Vitamin D3) biotin 2,500 mcg chewable tablet 1,250 mcg PO DAILY 01/14/24 02/28/24 clobetasol 0.05 % topical ointment 1 appl topical MOFR@0900 01/14/24 02/28/24 insulin aspart U-100 100 unit/mL subcut 02/22/24 02/28/24 (3 mL) subcutaneous pen (Novolog FlexPen U-100 Insulin aspart) pen needle, diabetic 31 gauge x #1,200 ea 05/22/2408/18 (BD Ultra-Fine Mini Pen Needle) Previous Rx's ?Medication ?Instructions ?Recorded cefuroxime axetil 250 mg tablet 250 mg PO BID 7 days #14 tabs 02/15/24 digoxin 125 mcg (0.125 mg) tablet 125 mcg PO .every other day 30 02/26/24 days #15 tabs metoprolol tartrate 25 mg tablet 25 mg PO BID 30 days #60 tabs 02/26/24 lancets 33 gauge #200 ea 03/18/24 FreeStyle Test (blood sugar #200 ea 03/20/24 diagnostic) blood sugar diagnostic #200 ea 03/20/24 FreeStyle Lancets 28 gauge #100 ea 03/26/24 (lancets) FreeStyle Silvina 3 [place] #1 ea 03/26/24 (blood-glucose meter,continuous) FreeStyle Silvina 3 Sensor #6 ea 03/26/24 (blood-glucose sensor) FreeStyle Lite Meter #1 ea 03/26/24 (blood-glucose meter) FreeStyle Lite Strips (blood sugar #100 ea 03/26/24 diagnostic) pen needle, diabetic 33 gauge x #100 ea 05/22/24/32 (Comfort EZ Pen [place]) Lantus Solostar U-100 Insulin 100 8 unit (0.08 mL) subcut QPM #15 mL 06/12/24 unit/mL (3 mL) subcutaneous pen (insulin glargine) Allergies Allergy/AdvReac Type Severity Reaction Status Date / Time sulfa Allergy Unknown diarrhea Verified 06/24/24 03:37 midazolam [From Versed] AdvReac Severe bradycardia Verified 06/24/24 03:37 Review of Systems 2 Review of Systems: Constitutional : No Weight loss, No Fever, No Chills, No Night Sweats, No Fatigue, No Malaise ENT/Mouth : No Hearing loss, No Ear Pain, No Nasal Congestion, No Sinus Pain, No Hoarseness, No sore throat, No Rhinorrhea, No Swallowing Difficulty Eyes: No Eye Pain, No Swelling, No Redness, No Foreign Body, No Discharge, No Vision Changes Cardiovascular : No Chest Pain, No SOB, No Dyspnea on Exertion, No Orthopnea, No Edema, No Palpitations Respiratory : No Cough, No Sputum, No Wheezing, No Smoke Exposure, No Dyspnea Gastrointestinal : No Nausea, No Vomiting, No Diarrhea, No Constipation, No abdominal Pain, No Hematochezia, No Melena Genitourinary : no irregular bleeding, No Dysuria, No Urinary Frequency, No Hematuria, No Urinary Incontinence, No Urgency, No Flank Pain, No Urinary Flow Changes, No Hesitancy Musculoskeletal : Complaining of right hip and left knee pain, No Myalgias, No Joint Swelling Skin : No Skin Lesions, No rash Neuro : No Weakness, No Numbness, No Paresthesias, No Loss of Consciousness, No Dizziness, No Headache Psych : No Anxiety/Panic, No Depression, No SI/HI/AH/VH, No Social Issues, Heme/Lymph: No Bruising, No Bleeding,No Lymphadenopathy Endocrine : No Polyuria, No Polydipsia, No Temperature Intolerance FOR[facility]LY [facility] Past Medical History Medical History Abdominal wall bulge Closed intertrochanteric fracture of left hip Chronic hypotension Closed hip fracture Hypotension Hypotension Tachycardia Diabetes Sepsis Pneumonia Acute sinusitis Hypoxemia Pulmonary emphysema Pneumothorax Diabetes mellitus with microalbuminuria, without long-term current use of insulin Vaccination refused by patient Underweight Intermittent palpitations Diabetes mellitus with hyperglycemia, without long-term current use of insulin Hx of fracture of wrist H/O fracture of wrist Surgical History H/O wrist surgery History of femoral hernia repair Family History Family History Father Diabetes mellitus Mother Essential hypertension Sister Breast cancer Social History Social History Household Members: Spouse Housing: House Do you presently have visiting nurse or other home services: No Alcohol intake: never Comment: bed alarm is not working. put chair alarm on her Patient Tobacco Use Status: Never used Tobacco e-Cigarette/Vaping Use: Never Used Second Hand Smoke Exposure: Yes ( smoker) Advance Directives: Yes Advance Directives on File: Yes Advance Directives Date on File: 06/16/22 Do you have a plan to hurt others: No Plan service: No Current occupational status: retired Cognitive needs: No Hearing needs: No Vision needs: No Physical Exam 2 Vital Signs: Vital Signs: Last Vital Signs Temp 98.5 F 06/24/24 03:28 Pulse 77 06/24/24 03:28 Resp 16 06/24/24 03:28 BP 105/63 06/24/24 03:28 Pulse Ox 94 06/24/24 03:28 O2 Del Method Nasal Cannula 06/24/24 03:28 Oxygen Flow Rate 2 06/24/24 03:28 BMI result Body Mass Index 15.1 Const: Other: Appearance: Alert. Oriented X3. No acute distress. Eyes: Pupils equal, round and reactive to light. ENT: Pharynx normal. Neck: Normal inspection. Neck supple. No lymph nodes noted. No crepitus CVS: Normal heart rate and rhythm. Pulses normal. Normal S1 and S2 Respiratory: No respiratory distress. Breath sounds normal. No Wheezing. No rales Abdomen: Soft and nontender. No rigidity. No distention. Skin: Skin warm and dry. Normal skin color. Normal skin turgor. Extremities: No lower extremity edema. Patient has right leg seems internally rotated, pain with hip flexion or extension. Patient able to flex and extend the left knee Neuro: Oriented X 3. No motor deficit. No sensory deficit. Moving all extremities. No slurred speech. CN 2 through 12 grossly intact Psych: calm, cooperative, normal affect Course Course Course Narrative: X-rays of the right hip and left knee pending. Urinalysis pending and labs Medications Administered Discontinued Medications Generic Name Dose Route Start Last Admin Trade Name Freq PRN Reason Stop Dose Admin Acetaminophen 325 mg 06/24/24 05:36 06/24/24 05:41 Acetaminophen 325 Mg Tablet PO 06/24/24 05:37 325 mg ONCE ONE Administration Medical Decision Making Medical Decision Making [facility] Narrative: My interpretation of labs: Patient's hematology and chemistry does not show any acute abnormality, troponin slightly bumped at 25, no chest pain. Troponin 2. Is due at 07:30. X-rays of the right hip and left knee do not show any acute abnormality. We tried ambulating the patient, patient was not able to tolerate standing up due to pain in both hip and knee. CT scan of the hip any pending. Regardless of the CT scan results, Patient will need PT and case management CT scan of the knee shows a nondepressed tibial plateau fracture with large lipohemarthrosis CT scan of the pelvis does not show any acute abnormalities. I discussed the patient with JUAN JOSE Tesfaye from orthopedics. Recommendations: Knee brace and nonweightbearing. As mentioned above, patient will need PT and case management. Differential Diagnosis Differential Diagnoses: The differential diagnosis associated with the presentation includes (Contusion, concussion, fracture of the hip and knee) Admission/Observation Consideration of admission/observation: Escalation of care including admission/observation considered (Patient is under physician observation waiting to be seen by PT and case management) Lab Data MDM Lab Attestation statement: I reviewed the patient's lab results. 06/24/24 04:35 06/24/24 04:35 Labs: Lab Results 06/24/24 Range/Units 04:35 WBC 10.4 (4.8-10.8) X10*3/uL RBC 3.93 L D (4.20-5.50) X10*6/uL Hgb 10.8 L (12.0-16.0) g/dl Hct 35.1 L (37.0-47.0) % MCV 89.3 (80.0-98.0) fL MCH 27.5 (27.0-33.0) pg MCHC 30.8 L (31.0-35.0) g/dl RDW 19.1 H (11.0-16.0) % Plt Count 166 D (160-400) X10*3/uL MPV 9.4 (9.4-12.3) fL Immature Gran % (Auto) 0.5 H (0.0-0.4) % Neut % (Auto) 86.3 H (45-73) % Lymph % (Auto) 5.1 L (20-40) % [place] % (Auto) 7.5 (2-11) % Eos % (Auto) 0.4 (0-4) % Baso % (Auto) 0.2 (0-2) % Lymph # (Auto) 0.5 L (1.2-4.9) X10*3/uL [place] # (Auto) 0.8 (0.1-1.2) X10*3/uL Eos # (Auto) 0.0 (0.0-0.4) X10*3/uL Baso # (Auto) 0.0 (0.0-0.2) X10*3/uL Abs Immat Gran (auto) 0.05 H (0.00-0.03) X10*3/uL Absolute Neuts (auto) 8.9 H (2.0-8.3) x10*3/uL Absolute Nucleated RBC 0.000 (0.0-0.012) X10*3/uL Nucleated RBC % (auto) 0.0 (0.0-0.2) /100WBC PT 12.5 H (10.9-12.4) SEC INR 1.1 (0.9-1.1) Sodium 142 (135-145) mmol/L Potassium 4.3 (3.3-5.1) mmol/L Chloride 99 (96-108) mmol/L Carbon Dioxide 35 H (22-29) mmol/L Anion Gap 12 (12-20) BUN 36 H (9-16) mg/dL Creatinine 1.18 (0.5-1.4) mg/dL Estim Creat Clear Calc 24.7 Estimated GFR 45 Random Glucose 288 H (60-115) mg/dL Calcium 9.5 D (8.4-10.2) mg/dL Total Creatine Kinase 45 (26-140) U/L Troponin I High Sens 25.0 H D (<3.5-17.0) ng/L Independent Interpretation I performed an independent interpretation of an: CT Scan Radiology Impression Discussion of test interpretation with radiology: I have reviewed the radiologist's reading. Radiologist Impression: Radiographs from January 13, 2024 demonstrated a comminuted and impacted intertrochanteric fracture of the left femur. Patient's subsequently underwent open reduction and internal fixation with placement of an antegrade intramedullary monica, spanning gamma nail, and single distal interlocking screw. The surgical hardware is again identified in the patient's current CT scan. No fracture of the surgical hardware is evident. There is unchanged alignment of the intertrochanteric intertrochanteric fracture of the left femur with numerous small fracture fragments. A moderate-sized left hip joint effusion. There is developing bony ankylosis at the fracture line without complete solid bony ankylosis identified at this time. Lesser trochanteric fracture fragment is displaced medially by approximately 8 mm. Bones are osteopenic. No new fractures are identified. Specifically, no acetabular fracture is evident. No fracture of the pubic rami is seen. No sacral fracture is evident. No fracture about the right hip is seen. Severe sigmoid diverticulosis without diverticulitis. Patient's radiographs demonstrated a large lipohemarthrosis. CT was suggested for further evaluation. CT confirms a nondepressed fracture of the tibial plateau. This is best appreciated on the coronal reconstructions. Fracture seen along the central portion of the tibial spines extending to the medial tibial plateau where there is subtle cortical disruption of the medial cortex. No definitive extension into the lateral tibial plateau is evident. No fracture of the patella, femur, or fibula is identified. Bones are severely osteopenic. Large lipohemarthrosis as evident on the patient's earlier radiographs. Impression: Nondepressed tibial plateau fracture as above with large lipohemarthrosis. Critical Care Time Critical Care Time Critical Care Time: Yes Total Critical Care Time: 45 Attestation: I have personally provided critical care time. Time includes review of lab data, radiology results, discussion with consultants, and monitoring for potential decompensation. Intervention performed as documented. Discharge Plan Discharge Clinical Impression: Fall, Closed fracture of tibial plateau Patient Disposition: Still a Patient Prescriptions: No Action (DME) lancets 33 gauge misc See Rx Instructions .ROUTE .MEDSUPPLY Qty: 200 4RF Rx Instructions: Check blood sugar four times daily (DME) blood sugar diagnostic Strip See Rx Instructions .ROUTE .MEDSUPPLY Qty: 200 5RF Rx Instructions: Check fasting blood sugar four times daily (DME) FreeStyle Test Strip See Rx Instructions .Route Qty: 200 3RF Rx Instructions: four times daily (DME) FreeStyle Lite Strips Strip See Rx Instructions .Route Qty: 100 3RF Rx Instructions: test 3 times daily (DME) blood-glucose meter [FreeStyle Lite Meter] Kit See Rx Instructions .Route Qty: 1 0RF Rx Instructions: to check blood glucose 3x daily (DME) lancets [FreeStyle Lancets] 28 gauge misc See Rx Instructions .Route Qty: 100 3RF Rx Instructions: three times daily (DME) FreeStyle Silvina 3 [place] Misc See Rx Instructions .Route Qty: 1 0RF Rx Instructions: As directed (DME) FreeStyle Silvina 3 Sensor Device See Rx Instructions .Route Qty: 6 3RF Rx Instructions: As directed cholecalciferol (vitamin D3) [Vitamin D3] 10 mcg (400 unit) Tablet 10 mcg PO DAILY cefuroxime axetil 250 mg tablet 250 mg PO BID 7 Days Qty: 14 0RF clobetasol 0.05 % ointment 1 appl topical MOFR@0900 biotin 2,500 mcg Tablet,Chewable 1,250 mcg PO DAILY Women's 50 Plus Multivitamin 400 mcg-500 mg calcium-20 mcg tablet 1 tab PO DAILY magnesium citrate 125 mg capsule 125 mg PO BEDTIME lutein 20 mg capsule 20 mg PO DAILY Rx Instructions: give with meal/snack ascorbic acid (vitamin C) 500 mg capsule 500 mg PO DAILY insulin aspart U-100 [Novolog FlexPen U-100 Insulin] 100 unit/mL (3 mL) insulin pen subcut (DME) pen needle, diabetic [BD Ultra-Fine Mini Pen Needle] 31 gauge x 3/16 needle See Rx Instructions .ROUTE DAILY Qty: 1200 Rx Instructions: As directed (DME) pen needle, diabetic [Comfort EZ Pen [place]] 33 gauge x 5/32 needle See Rx Instructions .Route Qty: 100 3RF Rx Instructions: once daily digoxin 125 mcg (0.125 mg) tablet 125 mcg PO .every other day 30 Days Qty: 15 5RF metoprolol tartrate 25 mg tablet 25 mg PO BID 30 Days Qty: 60 5RF insulin glargine [Lantus Solostar U-100 Insulin] 100 unit/mL (3 mL) insulin pen 8 unit subcut QPM Qty: 15 3RF Print Language: Spanish
[2024-06-24 04:40] LABS: MANUAL DIFF FLAG NO
[2024-06-24 04:42] LABS: Basophils Percent Auto 0.2 % (0-2); Eosinophils Percent Auto 0.4 % (0-4); Hematocrit 35.1 % (37.0-47.0); Hemoglobin 10.8 g/dl (12.0-16.0); Imm Gran Abs Auto 0.05 X10*3/uL (0.00-0.03); Imm Gran Pct Auto 0.5 % (0.0-0.4); Lymphocytes Absolute Auto 0.5 X10*3/uL (1.2-4.9); Lymphocytes Percent Auto 5.1 % (20-40); Mean Corpuscular HGB Conc 30.8 g/dl (31.0-35.0); Mean Corpuscular Hemoglobin 27.5 pg (27.0-33.0); Mean Corpuscular Volume 89.3 fL (80.0-98.0); Mean Platelet Volume 9.4 fL (9.4-12.3); Monocytes Absolute Auto 0.8 X10*3/uL (0.1-1.2); Monocytes Percent Auto 7.5 % (2-11); Neutrophils Absolute Auto 8.9 x10*3/uL (2.0-8.3); Neutrophils Percent Auto 86.3 % (45-73); Platelet Count 166 X10*3/uL (160-400); Red Blood Count 3.93 X10*6/uL (4.20-5.50); Red Cell Distribution Width 19.1 % (11.0-16.0); White Blood Count 10.4 X10*3/uL (4.8-10.8)
[2024-06-24 04:46] LABS: INTERNATIONAL NORM RATIO 1.1 (0.9-1.1); Prothrombin Time 12.5 SEC (10.9-12.4)
[2024-06-24 04:54] LABS: Anion Gap 12 (12-20); Blood Urea Nitrogen 36 mg/dL (9-16); Calcium 9.5 mg/dL (8.4-10.2); Carbon Dioxide 35 mmol/L (22-29); Chloride 99 mmol/L (96-108); Creatinine Clr Calc Pharmacy 24.7; Estimated Glomerular Filt Rate 45; Glucose Random 288 mg/dL (60-115); Potassium 4.3 mmol/L (3.3-5.1); Sodium 142 mmol/L (135-145)
[2024-06-24] MEDS: Acetaminophen 325 MG TABLET PO ×2 (05:41→13:53)
--- NOTE | 2024-06-24 05:43 | PC.NURSE ---
per provider attempt to walk pt, pt unable to bear weight or ambulate due to pain.
--- NOTE | 2024-06-24 06:19 | PC.NURSE ---
pt taken to Ct scan for further testing.
--- NOTE | 2024-06-24 08:09 | ECG_ITS ---
Test Reason : elevated trop Blood Pressure : */* mmHG Vent. Rate : 72 BPM Atrial Rate : 72 BPM P-R Int : 146 ms QRS Dur : 70 ms QT Int : 406 ms P-R-T Axes : 79 71 72 degrees QTcB Int : 444 ms Normal sinus rhythm Nonspecific ST and T wave abnormality Abnormal ECG When compared with ECG of 15-Feb-2024 08:59, Nonspecific T wave abnormality now evident in Inferior leads Nonspecific T wave abnormality now evident in Lateral leads Referred By: Heike Phelps Electronically Signed By: SANJAY HARVEY MD
[2024-06-24 08:10] LABS: Troponin-I High Sensitivity 58.5 ng/L (<3.5-17.0)
--- NOTE | 2024-06-24 10:31 | MHC.CM.PN ---
PT RECOMMENDING STR, HOWEVER PT HAS MEDICARE REFERRALS MADE TO ACUTE TO DETERMINE IF PT CAN QUALIFY
[2024-06-24 11:05] VITALS: BP 105/72; RESP 16; O2SAT 95
--- NOTE | 2024-06-24 11:52 | MHC.CM.PN ---
Addendum entered by Sydney Young 06/24/24 11:55: CM OFFERED TO CONTACT PTS AND SON, HOWEVER SHE DECLINED AND STATED SHE WOULD CALL AND INFORM THEM OF HER DCP Original Note: CM MET WITH PT SEVERAL TIMES TO DISCUSS DC PLANS PT REPORTS SHE LIVES WITH HER , SHE HAS A WALKER AND HOME O2 AND NO SERVICES SHE WAS SEEN BY PT AND UNDERSTANDS THEY ARE RECOMMENDING STR SHE DOES NOT HAVE A QHS, ACUTE REFERRALS PLACED, [facility] OFFERING SHE INITIALLY INDICATED SHE WANTED TO GO HOME, HOWEVER AFTER DISCUSSING CONCERNS ABOUT MANAGING HER NWB STATUS, SHE AGREED TO GO TO [facility] BLS TRANSPORT BOOKED WITH CLAIRE FOR 1400 HOURS
--- NOTE | 2024-06-24 12:24 | PC.NURSE ---
Assumed care of this patient upon transition to overflow unit. Med rec not yet completed. Patient to be transferred to rehab @ 1400. continues to be stiff in bed, unable to reposition independently.
[2024-06-24 12:54] VITALS: BP 137/69; PULSE 88; RESP 14; TEMP 36.8; O2SAT 98
[2024-06-24 12:56] LABS: Glucose, Whole Blood 237 mg/dL (60-115)
[2024-06-24 13:55] VITALS: BP 137/69; PULSE 88; RESP 14; TEMP 36.8; O2SAT 98
--- NOTE | 2024-06-24 14:07 | PC.NURSE ---
Called [facility], spoke to Liliya RN to RN report given, all questions answered. Patient on their way to [facility] w/ EMS presently.
== END 2024-06-24 14:04 ==
PROVIDERS: Emergency Provider Emergency Medicine; PCP Nurse Practitioner Family
DX: S82.145A Nondisplaced bicondylar fracture of left tibia, initial encounter for closed fracture (principal); W19.XXXA Unspecified fall, initial encounter; Y93.89 Activity, other specified; Y92.9 Unspecified place or not applicable; Y99.9 Unspecified external cause status; M25.562 Pain in left knee; M25.551 Pain in right hip; Z96.642 Presence of left artificial hip joint; Z79.899 Other long term (current) drug therapy
CPT/HCPCS: 36415; 72192; 73502; 73560; 73700; 80048; 82550; 82947; 84484; 85025; 85610; 93005; 97162; 99285

== ENCOUNTER → 2024-06-24 04:05 | Outpatient (BNV) | payer MEDICARE, SELFPAY | PROVIDERS: Emergency Provider Emergency Medicine; PCP Nurse Practitioner Family; Visit Provider Specialist | DX: M25.552 Pain in left hip (principal); S82.109A Unspecified fracture of upper end of unspecified tibia, initial encounter for closed fracture | CPT/HCPCS: 73502; 73560 ==

== ENCOUNTER → 2024-06-24 08:09 | Outpatient (BNV) | payer MEDICARE, SELFPAY | PROVIDERS: Emergency Provider Emergency Medicine; PCP Nurse Practitioner Family; Visit Provider Internal Medicine Cardiovascular Disease | DX: R94.31 Abnormal electrocardiogram [ECG] [EKG] (principal) | CPT/HCPCS: 93010 ==

== ENCOUNTER 2024-07-10 12:57 | Outpatient (REF) | payer MEDICARE, SELFPAY ==
--- NOTE | ~2024-07-10 | XR_ITS ---
CLINICAL HISTORY: M25.562 - Pain in left knee 2 view left knee Comparison: CT/SR - CT KNEE LT WO IV CON - 06/24/24 06:05 EST CR - XR KNEE LT 2V - 06/24/24 04:27 EST Findings: Nondepressed medial tibial plateau fracture with fracture line near the base of the lateral tibial spine and extending obliquely to the medial cortex just of the metaphysis. Articular surface appears congruent. Decreased lipohemarthrosis. Similar osteopenia. No significant joint space narrowing of the medial, lateral patellofemoral compartments. Soft tissues intact. Impression: Stable appearance to nondepressed medial tibial plateau fracture. This document has been electronically signed by: David Maloney MD on 07/12/2024 08:36:15
--- OUTSIDE RECORDS SUMMARY | 2024-07-10 14:17 | XMS_ITS | Encounter Summary ---
Author Organization [facility] Address [address] [place] [address] Care Team Providers Care Closing Manager Name Role Phone Dmitry Jason MD Primary Care Provider [phone] Encounter Details Date Type Department Care Team (Late st Contact Info) Description 07/04/2024 Lab Requisition [facility] - Main Lab [address] [place] [address] Viola Tubbs MD [address] [place] [id number] Encounter for other general examination Social History Tobacco Use Types Packs/Day Years Used Date Smoking Tobacco: Never Assessed Sex and Gender Information Value Date Recorded Sex Assigned at Not on file Gender Identity Not on file Sexual Orientation Not on file documented as of this encounter Plan of Treatment Not on file documented as of this encounter Procedures Procedure Name Priority Date/Time Associated Diagnosis Comments BASIC METABOLIC PANEL Routine 07/04/2024 5:50 AM EST Encounter for other general examination documented in this encounter Results * (ABNORMAL) Basic metabolic panel (07/04/2024 5:50 AM EST) Sodium 139 133 - 145 mmol/L LAB CHEMISTRY METHOD 07/04/2024 11:50 AM EST [facility] Potassium 4.8 3.5 - 5.5 mmol/L LAB CHEMISTRY METHOD 07/04/2024 11:50 AM EST [facility] Chloride 96 96 - 110 mmol/L LAB CHEMISTRY METHOD 07/04/2024 11:50 AM EST [facility] CO2 42(HH) 21 - 32 mmol/L LAB CHEMISTRY METHOD 07/04/2024 11:50 AM EST [facility] Anion Gap 1(L) 3 - 11 LAB CHEMISTRY METHOD 07/04/2024 11:[address] [facility] Glucose 114(H) 70 - 100 mg/dL LAB CHEMISTRY METHOD 07/04/2024 11:[address] [facility] BUN 22 5 - 25 mg/dL LAB CHEMISTRY METHOD 07/04/2024 11:[address] [facility] Creatinine 0.66 0.50 - 1.10 mg/dL LAB CHEMISTRY METHOD 07/04/2024 11:[address] [facility] eGFR 91 >=60 mL/min/1. 73m2 LAB CHEMISTRY METHOD 07/04/2024 11:[address] [facility] Comment:Calculation based on the??Chronic Kidney Disease Epidemiology Collaboration (CKD-EPI) equation refit??without adjustment for race. BUN/Creatinine Ratio 33.3 LAB CHEMISTRY METHOD 07/04/2024 11:[address] [facility] Calcium 8.6 8.5 - 10.5 mg/dL LAB CHEMISTRY METHOD 07/04/2024 11:[address] [facility] Blood Venous blood specimen / Unknown Venipuncture / Unknown 07/04/2024 5:50 AM EST 07/04/2024 9:24 AM EST Viola Tubbs MD LAB BLOOD ORDERABLES Performing Organization Address City/[facility]/ZIP Co de Phone Number [facility] [address] [place] [address], documented in this encounter Visit Diagnoses Diagnosis Encounter for other general examination documented in this encounter Care Teams Closing Manager Relationship Specialty Start Date End Date Dmitry Jason MD [address] [place] [id number] PCP - General Internal Medicine 07/02/24 documented as of this encounter
--- OUTSIDE RECORDS SUMMARY | 2024-07-10 14:17 | XMS_ITS | Encounter Summary ---
[facility] Organization [facility] Address [address] [place] [address] Care Team Providers Care Clinical Data Manager Name Role Phone Dmitry Jason MD Primary Care Provider [phone] Encounter Details Date Type Department Care Team (Late st Contact Info) Description 07/08/2024 Lab Requisition [facility] - Main Lab [address] [place] [address] Viola Tubbs MD [address] [place] [address] Encounter for other general examination Social History [...] Procedure Name Priority Date/Time Associated Diagnosis Comments CBC WITH AUTO DIFFERENTIAL Routine 07/08/2024 6:27 AM EST Encounter for other general examination CBC AND DIFFERENTIAL Routine 07/08/2024 6:27 AM EST Encounter for other general examination MAGNESIUM Routine 07/08/2024 6:27 AM EST Encounter for other general examination BASIC METABOLIC PANEL Routine 07/08/2024 6:27 AM EST Encounter for other general examination documented in this encounter Results * (ABNORMAL) CBC auto differential (07/08/2024 6:27 AM EST) [facility] Signature WBC 8.1 4.8 - 10.8 K/mcL LAB HEMETOLOGY METHOD 07/08/2024 10:07 AM EST [facility] ([facility] LAB RBC 3.50(L) 3.80 - 4.80 M/mcL LAB HEMETOLOGY METHOD 07/08/2024 10:07 AM [facility] LAB Hemoglobin 9.5(L) 11.5 - 16.0 g/dL LAB HEMETOLOGY METHOD 07/08/2024 10:07 AM [facility] LAB Hematocrit 32.5(L) 35.0 - 47.0 % LAB HEMETOLOGY METHOD 07/08/2024 10:07 AM [facility] LAB MCV 93.4 79.0 - 98.0 FL LAB HEMETOLOGY METHOD 07/08/2024 10:07 AM [facility] LAB MCH 27.3 27.0 - 32.0 pcg LAB HEMETOLOGY METHOD 07/08/2024 10:07 AM [facility] LAB MCHC 29.2(L) 32.0 - 37.0 g/dL LAB HEMETOLOGY METHOD 07/08/2024 10:07 AM [facility] LAB RDW 18.5(H) 11.0 - 15.0 % LAB HEMETOLOGY METHOD 07/08/2024 10:07 AM [facility] LAB Platelets 353 130 - 400 K/mcL LAB HEMETOLOGY METHOD 07/08/2024 10:07 AM [facility] LAB MPV 9.9 7.0 - 11.0 FL LAB HEMETOLOGY METHOD 07/08/2024 10:07 AM [facility] LAB NRBC 0.0 <1.0 % LAB HEMETOLOGY METHOD 07/08/2024 10:07 AM [facility] LAB NRBC Absolute 0.00 <0.10 K/mcL LAB HEMETOLOGY METHOD 07/08/2024 10:07 AM [facility] LAB Neutrophils Relative 77.8 % LAB HEMETOLOGY METHOD 07/08/2024 10:07 AM [facility] LAB Lymphocytes Relative 8.4 % LAB HEMETOLOGY METHOD 07/08/2024 10:07 AM [facility] LAB Monocytes Relative 11.5 % LAB HEMETOLOGY METHOD 07/08/2024 10:07 AM [facility] LAB Eosinophils Relative 1.5 % LAB HEMETOLOGY METHOD 07/08/2024 10:07 AM [facility] LAB Basophils Relative 0.4 % LAB HEMETOLOGY METHOD 07/08/2024 10:07 AM [facility] LAB Immature Granulocytes Relative 0.4 % LAB HEMETOLOGY METHOD 07/08/2024 10:07 AM [facility] LAB Neutrophils Absolute 6.29 1.50 - 7.00 K/mcL LAB HEMETOLOGY METHOD 07/08/2024 10:07 AM [facility] LAB Lymphocytes Absolute 0.68(L) 1.00 - 5.00 K/mcL LAB HEMETOLOGY METHOD 07/08/2024 10:07 AM [facility] LAB Monocytes Absolute 0.93 0.20 - 1.00 K/mcL LAB HEMETOLOGY METHOD 07/08/2024 10:07 AM [facility] LAB Eosinophils Absolute 0.12 0.00 - 0.50 K/mcL LAB HEMETOLOGY METHOD 07/08/2024 10:07 AM [facility] LAB Basophils Absolute 0.03 0.00 - 0.20 K/mcL LAB HEMETOLOGY METHOD 07/08/2024 10:07 AM [facility] LAB Immature Granulocytes Absolute 0.03 0.00 - 0.03 K/mcL LAB HEMETOLOGY METHOD 07/08/2024 10:07 AM [facility] LAB Blood Venous blood specimen / Unknown Venipuncture / Unknown 07/08/2024 6:27 AM EST 07/08/2024 9:00 AM EST Viola Tubbs MD LAB BLOOD ORDERABLES [facility] [address] [place] [address], [place] [phone] * Magnesium (07/08/2024 6:27 AM EST) [facility] Magnesium 2.1 1.9 - 2.6 mg/dL LAB CHEMISTRY METHOD 07/08/2024 11:01 AM EST [facility] LAB Blood Venous blood specimen / Unknown Venipuncture / Unknown 07/08/2024 6:27 AM EST 07/08/2024 9:00 AM EST Viola Tubbs MD LAB BLOOD ORDERABLES [facility] [address] [place] [address], [place] [phone] * (ABNORMAL) Basic metabolic panel (07/08/2024 6:27 AM EST) [facility] Sodium 138 133 - 145 mmol/L LAB CHEMISTRY METHOD 07/08/2024 11:08 AM [facility] Potassium 4.4 3.5 - 5.5 mmol/L LAB CHEMISTRY METHOD 07/08/2024 11:08 AM [facility] LAB Chloride 98 96 - 110 mmol/L LAB CHEMISTRY METHOD 07/08/2024 11:08 AM [facility] LAB CO2 37(H) 21 - 32 mmol/L LAB CHEMISTRY METHOD 07/08/2024 11:08 AM [facility] LAB Anion Gap 3 3 - 11 LAB CHEMISTRY METHOD 07/08/2024 11:08 AM [facility] LAB Glucose 148(H) 70 - 100 mg/dL LAB CHEMISTRY METHOD 07/08/2024 11:08 AM [facility] BUN 26(H) 5 - 25 mg/dL LAB CHEMISTRY METHOD 07/08/2024 11:08 AM [facility] LAB Creatinine 0.59 0.50 - 1.10 mg/dL LAB CHEMISTRY METHOD 07/08/2024 11:08 AM [facility] LAB eGFR 94 >=60 mL/min/1. 73m2 LAB CHEMISTRY METHOD 07/08/2024 11:08 AM [facility] LAB Comment:Calculation based on the??Chronic Kidney Disease Epidemiology Collaboration (CKD-EPI) equation refit??without adjustment for race. BUN/Creatinine Ratio 44.1 LAB CHEMISTRY METHOD 07/08/2024 11:08 AM [facility] LAB Calcium 8.5 8.5 - 10.5 mg/dL LAB CHEMISTRY METHOD 07/08/2024 11:08 AM [facility] LAB Blood Venous blood specimen / Unknown Venipuncture / Unknown 07/08/2024 6:27 AM EST 07/08/2024 9:00 AM EST Viola Tubbs MD LAB BLOOD ORDERABLES [facility] [address] [place] [address], documented in this encounter Visit Diagnoses Diagnosis Encounter for other general examination documented in this encounter Care Teams Clinical Data Manager Relationship Specialty Start Date End Date Dmitry Jason MD [address] [place] [phone] PCP - General Internal Medicine 07/02/24 documented as of this encounter
--- OUTSIDE RECORDS SUMMARY | 2024-07-10 14:17 | XMS_ITS | Encounter Summary ---
Author Organization [facility] Address [address] [place] [address] Care Team Providers Care Baggage Checker Name Role Phone Dmitry Jason MD Primary Care Provider [phone] Encounter Details Date Type Department Care Team (Late st Contact Info) Description 06/29/2024 Lab Requisition [facility] - Main Lab [address] [place] [address] Viola Tubbs MD [address] [place] [address] Encounter for other general examination Social History [...] Associated Diagnosis Comments BASIC METABOLIC PANEL Routine 06/29/2024 5:43 AM EST Encounter for other general examination documented in this encounter Results * (ABNORMAL) Basic metabolic panel (06/29/2024 5:43 AM EST) Sodium 140 133 - 145 mmol/L LAB CHEMISTRY METHOD 06/29/2024 12:07 PM [facility] LAB Potassium 5.1 3.5 - 5.5 mmol/L LAB CHEMISTRY METHOD 06/29/2024 12:07 PM [facility] LAB Chloride 102 96 - 110 mmol/L LAB CHEMISTRY METHOD 06/29/2024 12:07 PM [facility] LAB CO2 40(H) 21 - 32 mmol/L LAB CHEMISTRY METHOD 06/29/2024 12:07 PM [facility] LAB Anion Gap -2(L) 3 - 11 LAB CHEMISTRY METHOD 06/29/2024 12:07 PM [facility] LAB Glucose 68(L) 70 - 100 mg/dL LAB CHEMISTRY METHOD 06/29/2024 12:07 PM [facility] LAB BUN 59(H) 5 - 25 mg/dL LAB CHEMISTRY METHOD 06/29/2024 12:07 PM [facility] LAB Creatinine 0.83 0.50 - 1.10 mg/dL LAB CHEMISTRY METHOD 06/29/2024 12:07 PM [facility] LAB eGFR 73 >=60 mL/min/1. 73m2 LAB CHEMISTRY METHOD 06/29/2024 12:07 PM [facility] LAB Comment:Calculation based on the??Chronic Kidney Disease Epidemiology Collaboration (CKD-EPI) equation refit??without adjustment for race. BUN/Creatinine Ratio 71.1 LAB CHEMISTRY METHOD 06/29/2024 12:07 PM [facility] LAB Calcium 8.8 8.5 - 10.5 mg/dL LAB CHEMISTRY METHOD 06/29/2024 12:07 PM [facility] LAB Blood Venous blood specimen / Unknown Venipuncture / Unknown 06/29/2024 5:43 AM EST 06/29/2024 9:53 AM EST Viola Tubbs MD LAB BLOOD ORDERABLES [facility] [address] [place] [address], documented in this encounter Visit Diagnoses Diagnosis Encounter for other general examination documented in this encounter Care Teams Baggage Checker Relationship Specialty Start Date End Date Dmitry Jason MD [address] [place] [phone] PCP - General Internal Medicine 07/02/24 documented as of this encounter
--- OUTSIDE RECORDS SUMMARY | 2024-07-10 14:17 | XMS_ITS | Encounter Summary ---
Author Organization [facility] Address [address] [place] [address] Care Team Providers Care Bridge Worker Apprentice Name Role Phone Dmitry Jason MD Primary Care Provider [phone] Encounter Details Date Type Department Care Team (Late st Contact Info) Description 06/28/2024 Lab Requisition [facility] - Main Lab [address] [place] [address] Viola Tubbs MD [address] [place] [phone] Encounter for other general examination Social History [...] Diagnosis Comments CBC WITH AUTO DIFFERENTIAL Routine 06/28/2024 6:19 AM EST Encounter for other general examination CBC AND DIFFERENTIAL Routine 06/28/2024 6:19 AM EST Encounter for other general examination THYROID STIMULATING HORMONE Routine 06/28/2024 6:19 AM EST Encounter for other general examination MAGNESIUM Routine 06/28/2024 6:19 AM EST Encounter for other general examination COMPREHENSIVE METABOLIC PANEL Routine 06/28/2024 6:19 AM EST Encounter for other general examination documented in this encounter Results * (ABNORMAL) CBC auto differential (06/28/2024 6:19 AM EST) Pathologist [facility] WBC 8.0 4.8 - 10.8 K/mcL LAB HEMETOLOGY METHOD 06/28/2024 11:53 AM [facility] LAB RBC 3.70(L) 3.80 - 4.80 M/mcL LAB HEMETOLOGY METHOD 06/28/2024 11:53 AM [facility] LAB Hemoglobin 10.1(L) 11.5 - 16.0 g/dL LAB HEMETOLOGY METHOD 06/28/2024 11:53 AM [facility] LAB Hematocrit 35.5 35.0 - 47.0 % LAB HEMETOLOGY METHOD 06/28/2024 11:53 AM [facility] LAB MCV 95.9 79.0 - 98.0 FL LAB HEMETOLOGY METHOD 06/28/2024 11:53 AM [facility] LAB MCH 27.3 27.0 - 32.0 pcg LAB HEMETOLOGY METHOD 06/28/2024 11:53 AM [facility] LAB MCHC 28.5(L) 32.0 - 37.0 g/dL LAB HEMETOLOGY METHOD 06/28/2024 11:53 AM [facility] LAB RDW 18.8(H) 11.0 - 15.0 % LAB HEMETOLOGY METHOD 06/28/2024 11:53 AM [facility] LAB Platelets 136 130 - 400 K/mcL LAB HEMETOLOGY METHOD 06/28/2024 11:53 AM [facility] LAB MPV 9.9 7.0 - 11.0 FL LAB HEMETOLOGY METHOD 06/28/2024 11:53 AM [facility] LAB NRBC 0.0 <1.0 % LAB HEMETOLOGY METHOD 06/28/2024 11:53 AM [facility] LAB NRBC Absolute 0.00 <0.10 K/mcL LAB HEMETOLOGY METHOD 06/28/2024 11:53 AM [facility] Neutrophils Relative 81.9 % LAB HEMETOLOGY METHOD 06/28/2024 11:53 AM [facility] Lymphocytes Relative 8.0 % LAB HEMETOLOGY METHOD 06/28/2024 11:53 AM [facility] Monocytes Relative 9.3 % LAB HEMETOLOGY METHOD 06/28/2024 11:53 AM [facility] Eosinophils Relative 0.1 % LAB HEMETOLOGY METHOD 06/28/2024 11:53 AM [facility] Basophils Relative 0.1 % LAB HEMETOLOGY METHOD 06/28/2024 11:53 AM [facility] Immature Granulocytes Relative 0.6 % LAB HEMETOLOGY METHOD 06/28/2024 11:53 AM [facility] Neutrophils Absolute 6.51 1.50 - 7.00 K/mcL LAB HEMETOLOGY METHOD 06/28/2024 11:53 AM [facility] Lymphocytes Absolute 0.64(L) 1.00 - 5.00 K/mcL LAB HEMETOLOGY METHOD 06/28/2024 11:53 AM [facility] Monocytes Absolute 0.74 0.20 - 1.00 K/mcL LAB HEMETOLOGY METHOD 06/28/2024 11:53 AM [facility] Eosinophils Absolute 0.01 0.00 - 0.50 K/mcL LAB HEMETOLOGY METHOD 06/28/2024 11:53 AM [facility] Basophils Absolute 0.01 0.00 - 0.20 K/mcL LAB HEMETOLOGY METHOD 06/28/2024 11:53 AM [facility] Immature Granulocytes Absolute 0.05(H) 0.00 - 0.03 K/mcL LAB HEMETOLOGY METHOD 06/28/2024 11:53 AM [facility] Blood Venous blood specimen / Unknown Venipuncture / Unknown 06/28/2024 6:19 AM EST 06/28/2024 11:08 AM EST Viola Tubbs MD LAB BLOOD ORDERABLES Performing Organization Address [facility]/ZIP Co de Phone Number [facility] [address] [place] [address], * Thyroid stimulating hormone (06/28/2024 6:19 AM EST) TSH 1.72 0.40 - 4.00 mcIU/mL LAB CHEMISTRY METHOD 06/28/2024 12:29 PM EST [facility] Blood Venous blood specimen / Unknown Venipuncture / Unknown 06/28/2024 6:19 AM EST 06/28/2024 11:08 AM EST Viola Tubbs MD LAB BLOOD ORDERABLES Performing Organization Address [facility] [[email or web address]] Co de Phone Number [facility] [address] [place] [address], * Magnesium (06/28/2024 6:19 AM EST) Pathologist [facility] Magnesium 2.2 1.9 - 2.6 mg/dL LAB CHEMISTRY METHOD 06/28/2024 12:22 PM EST [facility] Blood Venous blood specimen / Unknown Venipuncture / Unknown 06/28/2024 6:19 AM EST 06/28/2024 11:08 AM EST Viola Tubbs MD LAB BLOOD ORDERABLES Performing Organization Address City/[facility]/ZIP Co de Phone Number [facility] [address] [place] [address], [place] [phone] * (ABNORMAL) Comprehensive metabolic panel (06/28/2024 6:19 AM EST) Sodium 138 133 - 145 mmol/L LAB CHEMISTRY METHOD 06/28/2024 12:46 PM EST [facility] Potassium 4.3 3.5 - 5.5 mmol/L LAB CHEMISTRY METHOD 06/28/2024 12:46 PM [facility] Chloride 99 96 - 110 mmol/L LAB CHEMISTRY METHOD 06/28/2024 12:46 PM [facility] CO2 38(H) 21 - 32 mmol/L LAB CHEMISTRY METHOD 06/28/2024 12:46 PM [facility] Anion Gap 1(L) 3 - 11 LAB CHEMISTRY METHOD 06/28/2024 12:46 PM [facility] Glucose 99 70 - 100 mg/dL LAB CHEMISTRY METHOD 06/28/2024 12:46 PM [facility] BUN 65(H) 5 - 25 mg/dL LAB CHEMISTRY METHOD 06/28/2024 12:46 PM [facility] Comment:Results verified by repeat testing Creatinine 0.89 0.50 - 1.10 mg/dL LAB CHEMISTRY METHOD 06/28/2024 12:46 PM [facility] eGFR 67 >=60 mL/min/1. 73m2 LAB CHEMISTRY METHOD 06/28/2024 12:46 PM [facility] Comment:Calculation based on the??Chronic Kidney Disease Epidemiology Collaboration (CKD-EPI) equation refit??without adjustment for race. BUN/Creatinine Ratio 73.0 LAB CHEMISTRY METHOD 06/28/2024 12:46 PM [facility] Calcium 8.5 8.5 - 10.5 mg/dL LAB CHEMISTRY METHOD 06/28/2024 12:46 PM [facility] AST (SGOT) 23 10 - 42 unit/L LAB CHEMISTRY METHOD 06/28/2024 12:46 PM [facility] ALT (SGPT) 25 10 - 60 unit/L LAB CHEMISTRY METHOD 06/28/2024 12:46 PM [facility] Alkaline Phosphatase 76 42 - 121 unit/L LAB CHEMISTRY METHOD 06/28/2024 12:46 PM [facility] Total Protein 6.4 6.0 - 8.0 g/dL LAB CHEMISTRY METHOD 06/28/2024 12:46 PM EST [facility] Albumin 2.4(L) 3.2 - 5.0 g/dL LAB CHEMISTRY METHOD 06/28/2024 12:46 PM EST [facility] Total Bilirubin 0.4 0.0 - 1.4 mg/dL LAB CHEMISTRY METHOD 06/28/2024 12:46 PM EST [facility] Blood Venous blood specimen / Unknown Venipuncture / Unknown 06/28/2024 6:19 AM EST 06/28/2024 11:08 AM EST Viola Tubbs MD LAB BLOOD ORDERABLES [facility] [address] [place] [address], documented in this encounter Visit Diagnoses Diagnosis Encounter for other general examination documented in this encounter Care Teams Bridge Worker Apprentice Relationship Specialty Start Date End Date Dmitry Jason MD [address] [place] [phone] PCP - General Internal Medicine 07/02/24 documented as of this encounter
--- OUTSIDE RECORDS SUMMARY | 2024-07-10 14:17 | XMS_ITS | Encounter Summary ---
[facility] Organization [facility] Address [address] [place] [address] Care Team Providers Care Investigator Cash Shortage Name Role Phone Dmitry Jason MD Primary Care Provider [phone] Encounter Details Date Type Department Care Team (Late st Contact Info) Description 07/03/2024 Lab Requisition [facility] - Main Lab [address] [place] [address] Viola Tubbs MD [address] [place] [phone] Encounter for other general examination Social History [...] Associated Diagnosis Comments BASIC METABOLIC PANEL Routine 07/03/2024 5:55 AM EST Encounter for other general examination documented in this encounter Results * (ABNORMAL) Basic metabolic panel (07/03/2024 5:55 AM EST) Sodium 138 133 - 145 mmol/L LAB CHEMISTRY METHOD 07/03/2024 12:38 PM EST [facility] Potassium 5.0 3.5 - 5.5 mmol/L LAB CHEMISTRY METHOD 07/03/2024 12:38 PM EST [facility] Chloride 94(L) 96 - 110 mmol/L LAB CHEMISTRY METHOD 07/03/2024 12:38 PM EST [facility] CO2 42(HH) 21 - 32 mmol/L LAB CHEMISTRY METHOD 07/03/2024 12:38 PM EST [facility] Anion Gap 2(L) 3 - 11 LAB CHEMISTRY METHOD 07/03/2024 12:38 PM [facility] Glucose 92 70 - 100 mg/dL LAB CHEMISTRY METHOD 07/03/2024 12:38 PM [facility] BUN 29(H) 5 - 25 mg/dL LAB CHEMISTRY METHOD 07/03/2024 12:38 PM [facility] Creatinine 0.66 0.50 - 1.10 mg/dL LAB CHEMISTRY METHOD 07/03/2024 12:38 PM [facility] eGFR 91 >=60 mL/min/1. 73m2 LAB CHEMISTRY METHOD 07/03/2024 12:38 PM [facility] Comment:Calculation based on the??Chronic Kidney Disease Epidemiology Collaboration (CKD-EPI) equation refit??without adjustment for race. BUN/Creatinine Ratio 43.9 LAB CHEMISTRY METHOD 07/03/2024 12:38 PM [facility] Calcium 9.2 8.5 - 10.5 mg/dL LAB CHEMISTRY METHOD 07/03/2024 12:38 PM [facility] Blood Venous blood specimen / Unknown Venipuncture / Unknown 07/03/2024 5:55 AM EST 07/03/2024 10:31 AM EST Viola Tubbs MD LAB BLOOD ORDERABLES Performing Organization Address City/[facility]/ZIP Co de Phone Number [facility] [address] [place] [address], documented in this encounter Visit Diagnoses Diagnosis Encounter for other general examination documented in this encounter Care Teams Investigator Cash Shortage Relationship Specialty Start Date End Date Dmitry Jason MD [address] [place] [phone] PCP - General Internal Medicine 07/02/24 documented as of this encounter
--- OUTSIDE RECORDS SUMMARY | 2024-07-10 14:17 | XMS_ITS | Encounter Summary ---
Author Organization [facility] Address [address] [place] [address] Care Team Providers Care Weight Tester Name Role Phone Dmitry Jason MD Primary Care Provider [phone] Encounter Details Date Type Department Care Team (Late st Contact Info) Description 06/25/2024 Lab Requisition [facility] - Main Lab [address] [place] [address] Viola Tubbs MD [address] [place] [phone] Encounter for other general examination Social History [...] Diagnosis Comments CBC WITH AUTO DIFFERENTIAL Routine 06/25/2024 5:55 AM EST Encounter for other general examination CBC AND DIFFERENTIAL Routine 06/25/2024 5:55 AM EST Encounter for other general examination MAGNESIUM Routine 06/25/2024 5:55 AM EST Encounter for other general examination COMPREHENSIVE METABOLIC PANEL Routine 06/25/2024 5:55 AM EST Encounter for other general examination documented in this encounter Results * (ABNORMAL) CBC auto differential (06/25/2024 5:55 AM EST) [facility] Signature WBC 10.5 4.8 - 10.8 K/[facility] LAB HEMETOLOGY METHOD 06/25/2024 10:[address] [facility] LAB RBC 4.00 3.80 - 4.80 M/mcL LAB HEMETOLOGY METHOD 06/25/2024 10:51 AM [facility] LAB Hemoglobin 10.7(L) 11.5 - 16.0 g/dL LAB HEMETOLOGY METHOD 06/25/2024 10:51 AM [facility] LAB Hematocrit 36.8 35.0 - 47.0 % LAB HEMETOLOGY METHOD 06/25/2024 10:51 AM [facility] LAB MCV 93.2 79.0 - 98.0 FL LAB HEMETOLOGY METHOD 06/25/2024 10:51 AM [facility] LAB MCH 27.1 27.0 - 32.0 pcg LAB HEMETOLOGY METHOD 06/25/2024 10:51 AM [facility] LAB MCHC 29.1(L) 32.0 - 37.0 g/dL LAB HEMETOLOGY METHOD 06/25/2024 10:51 AM [facility] LAB RDW 19.3(H) 11.0 - 15.0 % LAB HEMETOLOGY METHOD 06/25/2024 10:51 AM [facility] LAB Platelets 174 130 - 400 K/mcL LAB HEMETOLOGY METHOD 06/25/2024 10:51 AM [facility] LAB MPV 10.2 7.0 - 11.0 FL LAB HEMETOLOGY METHOD 06/25/2024 10:51 AM [facility] LAB NRBC 0.0 <1.0 % LAB HEMETOLOGY METHOD 06/25/2024 10:51 AM [facility] LAB NRBC Absolute 0.00 <0.10 K/mcL LAB HEMETOLOGY METHOD 06/25/2024 10:51 AM [facility] LAB Neutrophils Relative 77.4 % LAB HEMETOLOGY METHOD 06/25/2024 10:51 AM [facility] LAB Lymphocytes Relative 9.0 % LAB HEMETOLOGY METHOD 06/25/2024 10:51 AM EST [facility] LAB Monocytes Relative 11.0 % LAB HEMETOLOGY METHOD 06/25/2024 10:51 AM [facility] LAB Eosinophils Relative 1.5 % LAB HEMETOLOGY METHOD 06/25/2024 10:51 AM [facility] LAB Basophils Relative 0.4 % LAB HEMETOLOGY METHOD 06/25/2024 10:51 AM [facility] LAB Immature Granulocytes Relative 0.7 % LAB HEMETOLOGY METHOD 06/25/2024 10:51 AM [facility] LAB Neutrophils Absolute 8.14(H) 1.50 - 7.00 K/mcL LAB HEMETOLOGY METHOD 06/25/2024 10:51 AM [facility] LAB Lymphocytes Absolute 0.94(L) 1.00 - 5.00 K/mcL LAB HEMETOLOGY METHOD 06/25/2024 10:51 AM [facility] LAB Monocytes Absolute 1.15(H) 0.20 - 1.00 K/mcL LAB HEMETOLOGY METHOD 06/25/2024 10:51 AM [facility] LAB Eosinophils Absolute 0.16 0.00 - 0.50 K/mcL LAB HEMETOLOGY METHOD 06/25/2024 10:51 AM [facility] LAB Basophils Absolute 0.04 0.00 - 0.20 K/mcL LAB HEMETOLOGY METHOD 06/25/2024 10:51 AM [facility] LAB Immature Granulocytes Absolute 0.07(H) 0.00 - 0.03 K/mcL LAB HEMETOLOGY METHOD 06/25/2024 10:51 AM [facility] LAB Blood Venous blood specimen / Unknown Venipuncture / Unknown 06/25/2024 5:55 AM EST 06/25/2024 10:03 AM EST Viola Tubbs MD LAB BLOOD ORDERABLES [facility] LAB [address] [place] [address], * (ABNORMAL) Magnesium (06/25/2024 5:55 AM EST) [facility] Magnesium 1.7(L) 1.9 - 2.6 mg/dL LAB CHEMISTRY METHOD 06/25/2024 11:20 AM EST [facility] LAB Blood Venous blood specimen / Unknown Venipuncture / Unknown 06/25/2024 5:55 AM EST 06/25/2024 10:03 AM EST Viola Tubbs MD LAB BLOOD ORDERABLES [facility] LAB [address] [place] [address], * (ABNORMAL) Comprehensive metabolic panel (06/25/2024 5:55 AM EST) [facility] Sodium 141 133 - 145 mmol/L LAB CHEMISTRY METHOD 06/25/2024 11:40 AM [facility] LAB Potassium 4.3 3.5 - 5.5 mmol/L LAB CHEMISTRY METHOD 06/25/2024 11:40 AM [facility] LAB Chloride 100 96 - 110 mmol/L LAB CHEMISTRY METHOD 06/25/2024 11:40 AM [facility] LAB CO2 38(H) 21 - 32 mmol/L LAB CHEMISTRY METHOD 06/25/2024 11:40 AM [facility] LAB Anion Gap 3 3 - 11 LAB CHEMISTRY METHOD 06/25/2024 11:40 AM [facility] LAB Glucose 135(H) 70 - 100 mg/dL LAB CHEMISTRY METHOD 06/25/2024 11:40 AM [facility] LAB BUN 31(H) 5 - 25 mg/dL LAB CHEMISTRY METHOD 06/25/2024 11:40 AM [facility] LAB Creatinine 0.72 0.50 - 1.10 mg/dL LAB CHEMISTRY METHOD 06/25/2024 11:40 AM [facility] LAB eGFR 87 >=60 mL/min/1. 73m2 LAB CHEMISTRY METHOD 06/25/2024 11:40 AM [facility] LAB Comment:Calculation based on the??Chronic Kidney Disease Epidemiology Collaboration (CKD-EPI) equation refit??without adjustment for race. BUN/Creatinine Ratio 43.1 LAB CHEMISTRY METHOD 06/25/2024 11:40 AM [facility] LAB Calcium 8.9 8.5 - 10.5 mg/dL LAB CHEMISTRY METHOD 06/25/2024 11:40 AM [facility] LAB AST (SGOT) 20 10 - 42 unit/L LAB CHEMISTRY METHOD 06/25/2024 11:40 AM [facility] LAB ALT (SGPT) 33 10 - 60 unit/L LAB CHEMISTRY METHOD 06/25/2024 11:40 AM [facility] LAB Alkaline Phosphatase 88 42 - 121 unit/L LAB CHEMISTRY METHOD 06/25/2024 11:40 AM [facility] LAB Total Protein 6.9 6.0 - 8.0 g/dL LAB CHEMISTRY METHOD 06/25/2024 11:40 AM [facility] LAB Albumin 2.7(L) 3.2 - 5.0 g/dL LAB CHEMISTRY METHOD 06/25/2024 11:40 AM [facility] LAB Total Bilirubin 0.4 0.0 - 1.4 mg/dL LAB CHEMISTRY METHOD 06/25/2024 11:40 AM [facility] LAB Blood Venous blood specimen / Unknown Venipuncture / Unknown 06/25/2024 5:55 AM EST 06/25/2024 10:03 AM EST Viola Tubbs MD LAB BLOOD ORDERABLES [facility] LAB [address] [place] [address], documented in this encounter Visit Diagnoses Diagnosis Encounter for other general examination documented in this encounter Care Teams Weight Tester Relationship Specialty Start Date End Date Dmitry Jason MD [address] [place] [phone] PCP - General Internal Medicine 07/02/24 documented as of this encounter
--- OUTSIDE RECORDS SUMMARY | 2024-07-10 14:17 | XMS_ITS | Encounter Summary ---
Author Organization [facility] Address [address] [place] [address] Care Team Providers Care Torch Brazer Name Role Phone Dmitry Jason MD Primary Care Provider [phone] Encounter Details Date Type Department Care Team (Late st Contact Info) Description 07/05/2024 Lab Requisition [facility] - Main Lab [address] [facility] [place] [address] Viola Tubbs MD [address] [place] [phone] Encounter for other general examination Social History Tobacco Use Types Packs/Day Years Used Date Smoking Tobacco: Never Assessed Sex and Gender Information Value Date Recorded Sex Assigned at Not on file Gender Identity Not on file Sexual Orientation Not on file documented as of this encounter Plan of Treatment Not on file documented as of this encounter Visit Diagnoses Diagnosis Encounter for other general examination documented in this encounter Care Teams Torch Brazer Relationship Specialty Start Date End Date Dmitry Jason MD [address] [place] [address] [phone] PCP - General Internal Medicine 07/02/24 documented as of this encounter
--- OUTSIDE RECORDS SUMMARY | 2024-07-10 14:17 | XMS_ITS | Encounter Summary ---
[facility] Organization [facility] Address [address] [place] [address] Care Team Providers Care Phone Screener Name Role Phone Dmitry Jason MD Primary Care Provider [phone] Encounter Details Date Type Department Care Team (Late st Contact Info) Description 07/02/2024 Lab Requisition [facility] - Main Lab [address] [place] [address] Viola Tubbs MD [address] [place] [phone] Encounter for other general examination Social History [...] Associated Diagnosis Comments BASIC METABOLIC PANEL Routine 07/02/2024 6:07 AM EST Encounter for other general examination documented in this encounter Results * (ABNORMAL) Basic metabolic panel (07/02/2024 6:07 AM EST) Sodium 140 133 - 145 mmol/L LAB CHEMISTRY METHOD 07/02/2024 12:14 PM [facility] LAB Potassium 4.9 3.5 - 5.5 mmol/L LAB CHEMISTRY METHOD 07/02/2024 12:14 PM EST [facility] LAB Chloride 97 96 - 110 mmol/L LAB CHEMISTRY METHOD 07/02/2024 12:14 PM [facility] LAB CO2 45(HH) 21 - 32 mmol/L LAB CHEMISTRY METHOD 07/02/2024 12:14 PM [facility] LAB Anion Gap -2(L) 3 - 11 LAB CHEMISTRY METHOD 07/02/2024 12:14 PM [facility] LAB Glucose 146(H) 70 - 100 mg/dL LAB CHEMISTRY METHOD 07/02/2024 12:14 PM [facility] LAB BUN 31(H) 5 - 25 mg/dL LAB CHEMISTRY METHOD 07/02/2024 12:14 PM [facility] LAB Creatinine 0.63 0.50 - 1.10 mg/dL LAB CHEMISTRY METHOD 07/02/2024 12:14 PM [facility] LAB eGFR 92 >=60 mL/min/1. 73m2 LAB CHEMISTRY METHOD 07/02/2024 12:14 PM [facility] LAB Comment:Calculation based on the??Chronic Kidney Disease Epidemiology Collaboration (CKD-EPI) equation refit??without adjustment for race. BUN/Creatinine Ratio 49.2 LAB CHEMISTRY METHOD 07/02/2024 12:14 PM [facility] LAB Calcium 9.2 8.5 - 10.5 mg/dL LAB CHEMISTRY METHOD 07/02/2024 12:14 PM [facility] LAB Blood Venous blood specimen / Unknown Venipuncture / Unknown 07/02/2024 6:07 AM EST 07/02/2024 9:39 AM EST Viola Tubbs MD LAB BLOOD ORDERABLES [facility] LAB [address] [place] [address], documented in this encounter Visit Diagnoses Diagnosis Encounter for other general examination documented in this encounter Care Teams Phone Screener Relationship Specialty Start Date End Date Dmitry Jason MD [address] [place] [phone] PCP - General Internal Medicine 07/02/24 documented as of this encounter
--- OUTSIDE RECORDS SUMMARY | 2024-07-10 14:17 | XMS_ITS | Clinical Summary ---
Author Organization [address] Address [address] [place] [address] Phone Care Team Providers Care Corporate Travel Coordinator Name Role Phone Dmitry Jason MD Primary Care Provider [phone] Encounters Date Type Department Care Team Description 07/08/2024 Lab Requisition [facility] Lab [address] [place] [address] Viola Tubbs MD Encounter for other general examination 07/05/2024 Lab Requisition [facility] Lab [address] [place] [address] Viola Tubbs MD Encounter for other general examination 07/04/2024 Lab Requisition [facility] Lab [address] [place] [address] Viola Tubbs MD Encounter for other general examination 07/03/2024 Lab Requisition [facility] Lab [address] [place] [address] Viola Tubbs MD Encounter for other general examination 07/02/2024 Lab Requisition [facility] Lab [address] [place] [address] Viola Tubbs MD Encounter for other general examination 06/29/2024 Lab Requisition [facility] Lab [address] [place] [address] Viola Tubbs MD Encounter for other general examination 06/28/2024 Lab Requisition [facility] Lab [address] [place] [address] Viola Tubbs MD Encounter for other general examination 06/25/2024 Lab Requisition [facility] [address] [place] [address] Viola Tubbs MD Encounter for other general examination from Last 3 Months Social History Tobacco Use Types Packs/Day Years Used Date Smoking Tobacco: Never Assessed Sex and Gender Information Value Date Recorded Sex Assigned at Not on file Gender Identity Not on file Sexual Orientation Not on file Plan of Treatment Health Maintenance Due Date Last Done Comments DTaP,Tdap,and Td Vaccines (1 - Tdap) 1966 Zoster Vaccines (1 of 2) 1997 Pneumococcal Vaccine: 65+ Ye ars (1 of 1 - PCV) 2012 Depression Screening 05/08/2022 Falls Risk Assessment 05/08/2022 Hepatitis C Screening 05/08/2022 Medicare Annual Wellness Visit 05/08/2022 Social Influencers of Health Screening 05/08/2022 RSV Immunization Patients 60 + Years Old (1 - 1-dose 75+ series) 2022 COVID-19 Vaccine ( - 2023-2 5 season) 2024 Influenza Vaccine (#1) 2024 Osteoporosis Screening (Bone Density Screening) 10/26/2032 10/26/2022 Breast Cancer Screening Discontinued 10/25/2022 HIB Vaccines Aged Out No longer eligi ble based on patient's age to complete this topic HPV Vaccines Aged Out No longer eligi ble based on patient's age to complete this topic Hepatitis A Vaccines Aged Out No long er eligible based on patient's age to complete this topic Hepatitis B Vaccines Aged Out No long er eligible based on patient's age to complete this topic IPV Vaccines Aged Out No longer eligi ble based on patient's age to complete this topic MMR Vaccines Aged Out No longer eligi ble based on patient's age to complete this topic Meningococcal ACWY Vaccine Aged Out N o longer eligible based on patient's age to complete this topic RSV Immunization Patients Un yonis 20 months Aged Out No longer eligible b ased on patient's age to complete this topic Varicella Vaccines Aged Out No longer eligible based on patient's age to complete this topic Procedures Procedure Name Priority Date/Time Associated Diagnosis Comments CBC WITH AUTO DIFFERENTIAL Routine 07/08/2024 6:27 AM EST Encounter for other general examination MAGNESIUM Routine 07/08/2024 6:27 AM EST Encounter for other general examination CBC AND DIFFERENTIAL Routine 07/08/2024 6:27 AM EST Encounter for other general examination BASIC METABOLIC PANEL Routine 07/08/2024 6:27 AM EST Encounter for other general examination BASIC METABOLIC PANEL Routine 07/04/2024 5:50 AM EST Encounter for other general examination BASIC METABOLIC PANEL Routine 07/03/2024 5:55 AM EST Encounter for other general examination BASIC METABOLIC PANEL Routine 07/02/2024 6:07 AM EST Encounter for other general examination BASIC METABOLIC PANEL Routine 06/29/2024 5:43 AM EST Encounter for other general examination CBC WITH AUTO DIFFERENTIAL Routine 06/28/2024 6:19 [...] EST Encounter for other general examination CBC WITH AUTO DIFFERENTIAL Routine 06/25/2024 5:55 AM EST Encounter for other general examination MAGNESIUM Routine 06/25/2024 5:55 AM EST Encounter for other general examination CBC AND DIFFERENTIAL Routine 06/25/2024 5:55 AM EST Encounter for other general examination COMPREHENSIVE METABOLIC PANEL Routine 06/25/2024 5:55 AM EST Encounter for other general examination [facility] DEXA AXIAL SKELETON Routine 10/26/2022 11:00 AM EDT Age-related osteoporosis without current pathological fracture [facility] SCREENING DIGITAL Routine 10/25/2022 4:04 PM EDT Encounter for screening mammogram for malignant neoplasm of breast from Last 3 Months or Most Recently Relevant to Health Maintenance Results * (ABNORMAL) CBC auto differential (07/08/2024 6:27 AM EST) Only the most recent of3 resultswithin the time period is included. WBC 8.1 4.8 - 10.8 K/mcL LAB HEMETOLOGY METHOD 07/08/2024 10:07 AM [facility] RBC 3.50(L) 3.80 - 4.80 M/mcL LAB HEMETOLOGY METHOD 07/08/2024 10:07 AM [facility] Hemoglobin 9.5(L) 11.5 - 16.0 g/dL LAB HEMETOLOGY METHOD 07/08/2024 10:07 AM [facility] Hematocrit 32.5(L) 35.0 - 47.0 % LAB HEMETOLOGY METHOD 07/08/2024 10:07 AM [facility] MCV 93.4 79.0 - 98.0 FL LAB HEMETOLOGY METHOD 07/08/2024 10:07 AM [facility] MCH 27.3 27.0 - 32.0 pcg LAB HEMETOLOGY METHOD 07/08/2024 10:07 AM [facility] MCHC 29.2(L) 32.0 - 37.0 g/dL LAB HEMETOLOGY METHOD 07/08/2024 10:07 AM [facility] RDW 18.5(H) 11.0 - 15.0 % LAB HEMETOLOGY METHOD 07/08/2024 10:07 AM [facility] Platelets 353 130 - 400 K/mcL LAB HEMETOLOGY METHOD 07/08/2024 10:07 AM [facility] MPV 9.9 7.0 - 11.0 FL LAB HEMETOLOGY METHOD 07/08/2024 10:07 AM [facility] NRBC 0.0 <1.0 % LAB HEMETOLOGY METHOD 07/08/2024 10:07 AM [facility] NRBC Absolute 0.00 <0.10 K/mcL LAB HEMETOLOGY METHOD 07/08/2024 10:07 AM [facility] Neutrophils Relative 77.8 % LAB HEMETOLOGY METHOD 07/08/2024 10:07 AM [facility] Lymphocytes Relative 8.4 % LAB HEMETOLOGY METHOD 07/08/2024 10:07 AM [facility] Monocytes Relative 11.5 % LAB HEMETOLOGY METHOD 07/08/2024 10:07 AM [facility] Eosinophils Relative 1.5 % LAB HEMETOLOGY METHOD 07/08/2024 10:07 AM [facility] Basophils Relative 0.4 % LAB HEMETOLOGY METHOD 07/08/2024 10:07 AM [facility] Immature Granulocytes Relative 0.4 % LAB HEMETOLOGY METHOD 07/08/2024 10:07 AM [facility] Neutrophils Absolute 6.29 1.50 - 7.00 K/mcL LAB HEMETOLOGY METHOD 07/08/2024 10:07 AM [facility] Lymphocytes Absolute 0.68(L) 1.00 - 5.00 K/mcL LAB HEMETOLOGY METHOD 07/08/2024 10:07 AM [facility] Monocytes Absolute 0.93 0.20 - 1.00 K/mcL LAB HEMETOLOGY METHOD 07/08/2024 10:07 AM [facility] Eosinophils Absolute 0.12 0.00 - 0.50 K/mcL LAB HEMETOLOGY METHOD 07/08/2024 10:07 AM EST [facility] Basophils Absolute 0.03 0.00 - 0.20 K/[facility] LAB HEMETOLOGY METHOD 07/08/2024 10:07 AM EST [facility] Immature Granulocytes Absolute 0.03 0.00 - 0.03 K/[facility] LAB HEMETOLOGY METHOD 07/08/2024 10:07 AM EST [facility] Blood Venous blood specimen / Unknown Venipuncture / Unknown 07/08/2024 6:27 AM EST 07/08/2024 9:00 AM EST Viola Tubbs MD LAB BLOOD ORDERABLES Performing Organization Address [facility]/ZIP Co de Phone Number [facility] [address] [place] [address], * Magnesium (07/08/2024 6:27 AM EST) Only the most recent of3 resultswithin the time period is included. Magnesium 2.1 1.9 - 2.6 mg/dL LAB CHEMISTRY METHOD 07/08/2024 11:01 AM EST [facility] Blood Venous blood specimen / Unknown Venipuncture / Unknown 07/08/2024 6:27 AM EST 07/08/2024 9:00 AM EST Viola Tubbs MD LAB BLOOD ORDERABLES Performing Organization Address [facility]/ZIP Co de Phone Number [facility] [address] [place] [address], [place] [phone] * (ABNORMAL) Basic metabolic panel (07/08/2024 6:27 AM EST) Only the most recent of5 resultswithin the time period is included. Sodium 138 133 - 145 mmol/L LAB CHEMISTRY METHOD 07/08/2024 11:08 AM EST [facility] Potassium 4.4 3.5 - 5.5 mmol/L LAB CHEMISTRY METHOD 07/08/2024 11:08 AM [facility] Chloride 98 96 - 110 mmol/L LAB CHEMISTRY METHOD 07/08/2024 11:08 AM [facility] CO2 37(H) 21 - 32 mmol/L LAB CHEMISTRY METHOD 07/08/2024 11:08 AM [facility] Anion Gap 3 3 - 11 LAB CHEMISTRY METHOD 07/08/2024 11:08 AM [facility] Glucose 148(H) 70 - 100 mg/dL LAB CHEMISTRY METHOD 07/08/2024 11:08 AM [facility] BUN 26(H) 5 - 25 mg/dL LAB CHEMISTRY METHOD 07/08/2024 11:08 AM [facility] Creatinine 0.59 0.50 - 1.10 mg/dL LAB CHEMISTRY METHOD 07/08/2024 11:08 AM [facility] eGFR 94 >=60 mL/min/1. 73m2 LAB CHEMISTRY METHOD 07/08/2024 11:08 AM [facility] Comment:Calculation based on the??Chronic Kidney Disease Epidemiology Collaboration (CKD-EPI) equation refit??without adjustment for race. BUN/Creatinine Ratio 44.1 LAB CHEMISTRY METHOD 07/08/2024 11:08 AM [facility] Calcium 8.5 8.5 - 10.5 mg/dL LAB CHEMISTRY METHOD 07/08/2024 11:08 AM [facility] Blood Venous blood specimen / Unknown Venipuncture / Unknown 07/08/2024 6:27 AM EST 07/08/2024 9:00 AM EST Viola Tubbs MD LAB BLOOD ORDERABLES [facility] [address] [place] [address], * Thyroid stimulating hormone (06/28/2024 6:19 AM EST) TSH 1.72 0.40 - 4.00 mcIU/mL LAB CHEMISTRY METHOD 06/28/2024 12:29 PM [facility] Blood Venous blood specimen / Unknown Venipuncture / Unknown 06/28/2024 6:19 AM EST 06/28/2024 11:08 AM EST Viola Tubbs MD LAB BLOOD ORDERABLES [facility] [address] [place] [address], * (ABNORMAL) Comprehensive metabolic panel (06/28/2024 6:19 AM EST) Only the most recent of2 resultswithin the time period is included. Pathologist [facility] Sodium 138 133 - 145 mmol/L LAB CHEMISTRY METHOD 06/28/2024 12:46 PM [facility] Potassium 4.3 3.5 - 5.5 mmol/L LAB CHEMISTRY METHOD 06/28/2024 12:46 PM [facility] Chloride 99 96 - 110 mmol/L LAB CHEMISTRY METHOD 06/28/2024 12:46 PM [facility] CO2 38(H) 21 - 32 mmol/L LAB CHEMISTRY METHOD 06/28/2024 12:46 PM [facility] Anion Gap 1(L) 3 - 11 LAB CHEMISTRY METHOD 06/28/2024 12:46 PM [facility] Glucose 99 70 - 100 mg/dL LAB CHEMISTRY METHOD 06/28/2024 12:46 PM [facility] BUN 65(H) 5 - 25 mg/dL LAB CHEMISTRY METHOD 06/28/2024 12:46 PM [facility] Comment:Results verified by repeat testing Creatinine 0.89 0.50 - 1.10 mg/dL LAB CHEMISTRY METHOD 06/28/2024 12:46 PM [facility] eGFR 67 >=60 mL/min/1. 73m2 LAB CHEMISTRY METHOD 06/28/2024 12:46 PM [facility] Comment:Calculation based on the??Chronic Kidney Disease Epidemiology Collaboration (CKD-EPI) equation refit??without adjustment for race. BUN/Creatinine Ratio 73.0 LAB CHEMISTRY METHOD 06/28/2024 12:46 PM [facility] Calcium 8.5 8.5 - 10.5 mg/dL LAB CHEMISTRY METHOD 06/28/2024 12:46 PM [facility] AST (SGOT) 23 10 - 42 unit/L LAB CHEMISTRY METHOD 06/28/2024 12:46 PM [facility] ALT (SGPT) 25 10 - 60 unit/L LAB CHEMISTRY METHOD 06/28/2024 12:46 PM [facility] Alkaline Phosphatase 76 42 - 121 unit/L LAB CHEMISTRY METHOD 06/28/2024 12:46 PM [facility] Total Protein 6.4 6.0 - 8.0 g/dL LAB CHEMISTRY METHOD 06/28/2024 12:46 PM [facility] Albumin 2.4(L) 3.2 - 5.0 g/dL LAB CHEMISTRY METHOD 06/28/2024 12:46 PM [facility] Total Bilirubin 0.4 0.0 - 1.4 mg/dL LAB CHEMISTRY METHOD 06/28/2024 12:46 PM [facility] Blood Venous blood specimen / Unknown Venipuncture / Unknown 06/28/2024 6:19 AM EST 06/28/2024 11:08 AM EST Viola Tubbs MD LAB BLOOD ORDERABLES [facility] [address] [place] [address], * [facility] DEXA AXIAL SKELETON (10/26/2022 11:00 AM EDT) Anatomical Region Laterality Modality Mammography 10/25/2022 1:52 PM EDT Narrative 10/26/2022 11:00 AM EDT [facility] Diagnostic Imaging Department [address] [place] [address] Patient: ??OSCAR,ANU ?/Age/Sex: 1945 - Unit#: ??[id number] ? Location/Status: ??SPDIMAM/REG CLI ? Mnemonic/Ordering Site: ??MAMDEXAAX/SPMAM Ordering Physician: ??MARCELA MAE Sabas Dexa Axial Skeleton - 10/25/221510 HISTORY: ??The patient is a 77-year-old postmenopausal female with clinical concern for metabolic bone disease. FINDINGS: ??Dual energy x-ray absorptiometry of the lumbar spine and femurs is performed. The mean bone mineral density at L1-L4 (with the exclusion of L2 and L3) is 0.701 gm/cm2 which is 60% of that of young normals and 83% of that of age matched controls. This yields a T-score of -3.9 and a Z-score of -1.2 which is diagnostic of osteoporosis. The mean bone mineral density of the femurs bilaterally is 0.608 gm/cm2 which is 60% of that of young normals and 86% of that of age matched controls. ??This yields a T-score of -3.2 and a Z-score of -0.8 which is diagnostic of osteoporosis. IMPRESSION: 1. Osteoporosis. ??There has been a decrease of 17.7% in bone mineral density in the lumbar spine since the prior examination of 11/11/2016. ??There has been a decrease of 16.8% in bone mineral density in the right femur and a decrease of 21.8% in bone mineral density in the left femur. 2. FRAX analysis yields a 10-year probability of major osteoporotic fracture of 27.5% and a 10-year probability of hip fracture of 13.1%. Code 65182 Dictating Physician: ??EDU MATHUR MD Electronically Signed by: ??EDU MATHUR MD Dic Date/Time: ??10/26/22 1059 Sign date/Time: ??10/26/22 1100 Procedure Note Edu Mathur MD - 07/07/2023 [facility] Diagnostic Imaging Department [address] [place] [address] Patient: ANU MOORE /Age/Sex: 1945 - 77 - F Unit#: [id number] [facility]/Ordering Site: MAMDEXAAX/SPMAM Ordering Physician: MARCELA MAE Sabas Dexa Axial Skeleton - 10/25/22 - 8469 HISTORY: The patient is a 77-year-old postmenopausal female withclinical concern for metabolic bone disease. FINDINGS: Dual energy x-ray absorptiometry of the lumbar spine and femursis performed. The mean bone mineral density at L1-L4 (with the exclusion ofL2 and L3) is 0.701 gm/cm2 which is 60% of that of young normals and 83% of thatof age matched controls. This yields a T-score of -3.9 and a Z-score of -1.2which is diagnostic of osteoporosis. The mean bone mineral density of the femurs bilaterally is 0.608 gm/re1cgrxr is 60% of that of young normals and 86% of that of age matched controls.This yields a T-score of -3.2 and a Z-score of -0.8 which is diagnostic of osteoporosis. IMPRESSION: 1. Osteoporosis. There has been a decrease of 17.7% in bone mineraldensity in the lumbar spine since the prior examination of 11/11/2016. There has mary decrease of 16.8% in bone mineral density in the right femur and adecrease of 21.8% in bone mineral density in the left femur. 2. FRAX analysis yields a 10-year probability of major osteoporoticfracture of 27.5% and a 10-year probability of hip fracture of 13.1%. Code 59227 Dictating Physician: EDU MATHUR MD Electronically Signed by: EDU MATHUR MD Dic Date/Time: 10/26/22 1059 Sign date/Time: 10/26/22 1100 Marcela Mae NP IMG BI PROCEDURES * SABAS SCREENING DIGITAL (10/25/2022 4:04 PM EDT) Anatomical Region Laterality Modality Mammography 10/25/2022 1:54 PM EDT Narrative 10/25/2022 4:04 PM EDT [facility] Diagnostic Imaging Department [address] [place] [address] Patient: ??MITROWSKI,ANU ?/Age/Sex: 1945 - 77 - F Unit#: ??[id number] ? Location/Status: ??SPDIMAM/REG CLI ? Mnemonic/Ordering Site: ??DIGSC/SPMAM Ordering Physician: ??MARCELA MAE Sabas Screening Digital - 10/25/22 - 1425 EXAM: Sabas Screening Digital EXAM DATE AND TIME: 10/25/2022 2:28 PM HISTORY: ??Screening. 25-30 pound weight loss over past 6 years per technologist notes. Family history of breast carcinoma including mother at age 50 and sister at age 40. COMPARISON: ??11/11/16, 10/22/15, 10/17/14 TECHNIQUE: CC and MLO views of both breasts were obtained using full field digital mammography. Bilateral digital breast tomosynthesis was performed in the MLO projection. Computer aided detection with [employer] 7.2-H and [facility] 3D 3.1 was employed. TISSUE DENSITY: c. The breasts are heterogeneously dense, which may obscure small masses. FINDINGS: The breasts are smaller in size, consistent with the weight loss history. No suspicious masses, grouped microcalcifications, or areas of architectural distortion are seen. Scattered microcalcifications are present, some of which are skin calcifications. Vascular calcification is also noted. IMPRESSION: No mammographic evidence of malignancy is seen. A negative mammogram in the presence of a clinically suspicious palpable abnormality does not preclude the possibility of malignancy or alter the indications for biopsy. BI-RADS: ??Category 2: Benign RECOMMENDATION(S): 1: Routine screening mammogram BILATERAL in 1 year. [address]40, [address]609 3342F, 7025F Dictating Physician: ??AMANDO PABON MD Electronically Signed by: ??AMANDO PABON MD Dic Date/Time: ??10/25/22 1603 Sign date/Time: ??10/25/22 1604 Procedure Note Amando Pabon MD - 07/07/2023 [facility] Diagnostic Imaging Department [address] [place] [address] Patient: ANU MOORE/Age/Sex: 1945 - 77 - F Unit#: [id number] Location/Status: SPDIMAM/REG CLI Mnemonic/Ordering Site: [facility] Ordering Physician: MARCELA MAE Sabas Screening Digital - 10/25/22 - 1426 EXAM: Sabas Screening Digital EXAM DATE AND TIME: 10/25/2022 2:28 PM HISTORY: Screening. 25-30 pound weight loss over past 6 years pertechnologist notes. Family history of breast carcinoma including mother at age 50 andsister at age 40. COMPARISON: 11/11/16, 10/22/15, 10/17/14 TECHNIQUE: CC and MLO views of both breasts were obtained using fullfield digital mammography. Bilateral digital breast tomosynthesis was performedin the MLO projection. Computer aided detection with [employer] 7.2-H and[facility] 3D 3.1 was employed. TISSUE DENSITY: c. The breasts are heterogeneously dense, which mayobscure small masses. FINDINGS: The breasts are smaller in size, consistent with the weight losshistory. No suspicious masses, grouped microcalcifications, or areas ofarchitectural distortion are seen. Scattered microcalcifications are present, some ofwhich are skin calcifications. Vascular calcification is also noted. IMPRESSION: No mammographic evidence of malignancy is seen. A negative mammogram in the presence of a clinically suspicious palpable abnormality does not preclude the possibility of malignancy or alter the indications for biopsy. BI-RADS: Category 2: Benign RECOMMENDATION(S): 1: Routine screening mammogram BILATERAL in 1 year. 21209, [address]3023 3342F, 7025F Dictating Physician: AMANDO PABON MD Electronically Signed by: AMANDO PABON MD Dic Date/Time: 10/25/22 1603 Sign date/Time: 10/25/22 1604 Marcela Mae PROPERTY DEVELOPER IMG BI PROCEDURES from Last 3 Months or Most Recently Relevant to Health Maintenance Care Teams Corporate Travel Coordinator Relationship Specialty Start Date End Date Dmitry Jason MD [address] [place] [id number] PCP - General Internal Medicine 07/02/24
== END 2024-07-10 12:58 | disposition home or self-care (01) ==
LOC: HO.HOSX 12:57
PROVIDERS: Visit Provider Physician Assistant
DX: Z13.89 Encounter for screening for other disorder (principal)
CPT/HCPCS: 73560

== ENCOUNTER 2024-07-10 14:20 | Outpatient (AMB) | payer MEDICARE, SELFPAY ==
[2024-07-10 14:45] VITALS: BMI 15.1
--- NOTE | 2024-07-10 14:45 | MHC.OFFVIS ---
Vital Signs 07/10/24 14:45 Height 5 ft 3 in Weight 85 lb BMI 15.1 Intake Visit Reasons: FC- LT tibial plateau fx DOI 06/24/24 Intake Note: Anu is a 78 year old female who presents today for a evaluation of her left hip injury, DOI 06/24/24. Hx of Left IMN 01/14/24 DRMaria Antonia Patient states that she was trying to get off the bathroom, had a mechanical fall, landed on her right hip. Patient reports that at one of her post operative visits for her IMN she requested a brace to help with stability of the left leg but she did not get one. She feels that because of her instability she took a fall resulting in the tibial plateau fracture. Over the first week of her injury she explains that her pain has improved. She has numbness and tingling in the foot but this was present prior to the injury. Allergies sulfa Allergy (Unknown, Verified 06/24/24 03:37) diarrhea midazolam [From Versed] Adverse Reaction (Severe, Verified 06/24/24 03:37) bradycardia HPI HPI FC- LT tibial plateau fx DOI 06/24/24: Details: 78-year-old female presents to the office today for an injury she sustained to her left knee on 06/24/2024. She states she was going to the bathroom when she slipped and fell injuring the left knee. She was seen in the emergency department where she was found to have a nondisplaced tibial plateau fracture. She was transitioned to rehab where she was discharged today. She states since her operative fixation of the left hip with Dr. Tay she has had significant weakness in the left lower extremity and difficulty with gait. [facility] Medical History Abdominal wall bulge Closed intertrochanteric fracture of left hip Chronic hypotension Closed hip fracture Hypotension Hypotension Tachycardia Diabetes Sepsis Pneumonia Acute sinusitis Hypoxemia Pulmonary emphysema Pneumothorax Diabetes mellitus with microalbuminuria, without long-term current use of insulin Vaccination refused by patient Underweight Intermittent palpitations Diabetes mellitus with hyperglycemia, without long-term current use of insulin Hx of fracture of wrist H/O fracture of wrist Surgical History H/O wrist surgery History of femoral hernia repair Family History Father Diabetes mellitus Mother Essential hypertension Sister Breast cancer Social History Household Members: Spouse Housing: House Do you presently have visiting nurse or other home services: No Alcohol intake: never Comment: bed alarm is not working. put chair alarm on her Patient Tobacco Use Status: Never used Tobacco e-Cigarette/Vaping Use: Never Used Second Hand Smoke Exposure: Yes ( smoker) Advance Directives Date on File: 06/16/22 service: No Current occupational status: retired Cognitive needs: No Hearing needs: No Vision needs: No Review of Systems Const All systems reviewed & are unremarkable except as noted in HPI and below Physical Exam Vital Signs: BMI result Body Mass Index 15.1 Extrem Other: Left knee normal to inspection. No effusion no open wounds or abrasions. She has full extension of the knee and can perform 80 degrees of flexion. She has mild tenderness over the medial and lateral proximal tibia. Calf supple nontender neurovascularly intact. Office Procedures AMB Fracture Care Fracture Billing Code: Fracture Billing Code Results Reviewed Results Reviewed: X-rays of the left knee obtained in the office today show a lateral tibial plateau fracture without depression or displacement. Assessment & Plan Assessment & Plan (1) Tibial plateau fracture, left: Code(s): S82.142A - Displaced bicondylar fracture of left tibia, initial encounter for closed fracture Category: Medical Plan: She was transitioned to a hinged knee brace to provide support with ambulation. She should be touch toe weight-bearing on the left lower extremity only for balance with using a walker. She can perform nonweightbearing range of motion and quad strengthening exercises. I would like to see her back in 6 weeks with x-rays of the left knee, sooner if needed. Orders: Orders XR knee LT 2V Today M25.562 - Pain in left knee PT Evaluation and Treatment Today S82.142A - Displaced bicondylar fracture of left tibia, initial encounter for closed fracture Coding Level of Care Code Est Pt Level 3 (11547) Complex EM visit Add On G2211 Diagnoses Tibial plateau fracture, left S82.142A CPT Codes Fracture Care - Fracture Billing Code: Fracture Billing Code ([id number])
--- OUTSIDE RECORDS SUMMARY | 2024-07-10 15:32 | XMS_ITS | Encounter Summary ---
[facility] Organization [facility] Address [address] [place] [address] Care Team Providers Care Chief Of Anesthesiology Name Role Phone Dmitry Jason MD Primary Care Provider [phone] Encounter Details Date Type Department Care Team (Late st Contact Info) Description 06/29/2024 Lab Requisition [facility] - Main Lab [address] [place] [address] Viola Tubbs MD [address] [place] [phone] Encounter for other general examination Social History [...] mmol/L LAB CHEMISTRY METHOD 06/29/2024 12:07 PM [facility] Potassium 5.1 3.5 - 5.5 mmol/L LAB CHEMISTRY METHOD 06/29/2024 12:07 PM [facility] Chloride 102 96 - 110 mmol/L LAB CHEMISTRY METHOD 06/29/2024 12:07 PM [facility] CO2 40(H) 21 - 32 mmol/L LAB CHEMISTRY METHOD 06/29/2024 12:07 PM [facility] Anion Gap -2(L) 3 - 11 LAB CHEMISTRY METHOD 06/29/2024 12:07 PM [facility] Glucose 68(L) 70 - 100 mg/dL LAB CHEMISTRY METHOD 06/29/2024 12:07 PM [facility] BUN 59(H) 5 - 25 mg/dL LAB CHEMISTRY METHOD 06/29/2024 12:07 PM [facility] Creatinine 0.83 0.50 - 1.10 mg/dL LAB CHEMISTRY METHOD 06/29/2024 12:07 PM [facility] eGFR 73 >=60 mL/min/1. 73m2 LAB CHEMISTRY METHOD 06/29/2024 12:07 PM [facility] Comment:Calculation based on the??Chronic Kidney Disease Epidemiology Collaboration (CKD-EPI) equation refit??without adjustment for race. BUN/Creatinine Ratio 71.1 LAB CHEMISTRY METHOD 06/29/2024 12:07 PM [facility] Calcium 8.8 8.5 - 10.5 mg/dL LAB CHEMISTRY METHOD 06/29/2024 12:07 PM [facility] Blood Venous blood specimen / Unknown Venipuncture / Unknown 06/29/2024 5:43 AM EST 06/29/2024 9:53 AM EST Viola Tubbs MD LAB BLOOD ORDERABLES [facility] [address] [place] [address], documented in this encounter Visit Diagnoses Diagnosis Encounter for other general examination documented in this encounter Care Teams Chief Of Anesthesiology Relationship Specialty Start Date End Date Dmitry Jason MD [address] [place] [phone] PCP - General Internal Medicine 07/02/24 documented as of this encounter
--- OUTSIDE RECORDS SUMMARY | 2024-07-10 15:32 | XMS_ITS | Encounter Summary ---
[facility] Organization [facility] Address [address] [place] [address] Care Team Providers Care Balloon Design Printer Name Role Phone Dmitry Jason MD Primary Care Provider [phone] Encounter Details Date Type Department Care Team (Late st Contact Info) Description 06/25/2024 Lab Requisition [facility] - Main Lab [address] [place] [address] Viola Tubbs MD [address] [place] [address] Encounter for other general examination Social History [...] CBC auto differential (06/25/2024 5:55 AM EST) [facility] Signature WBC 10.5 4.8 - 10.8 K/[facility] LAB HEMETOLOGY METHOD 06/25/2024 10:51 AM EST [facility] RBC 4.00 3.80 - 4.80 M/mcL LAB HEMETOLOGY METHOD 06/25/2024 10:51 AM [facility] Hemoglobin 10.7(L) 11.5 - 16.0 g/dL LAB HEMETOLOGY METHOD 06/25/2024 10:51 AM [facility] Hematocrit 36.8 35.0 - 47.0 % LAB HEMETOLOGY METHOD 06/25/2024 10:51 AM [facility] MCV 93.2 79.0 - 98.0 FL LAB HEMETOLOGY METHOD 06/25/2024 10:51 AM [facility] MCH 27.1 27.0 - 32.0 pcg LAB HEMETOLOGY METHOD 06/25/2024 10:51 AM [facility] MCHC 29.1(L) 32.0 - 37.0 g/dL LAB HEMETOLOGY METHOD 06/25/2024 10:51 AM [facility] RDW 19.3(H) 11.0 - 15.0 % LAB HEMETOLOGY METHOD 06/25/2024 10:51 AM [facility] Platelets 174 130 - 400 K/mcL LAB HEMETOLOGY METHOD 06/25/2024 10:51 AM [facility] MPV 10.2 7.0 - 11.0 FL LAB HEMETOLOGY METHOD 06/25/2024 10:51 AM [facility] NRBC 0.0 <1.0 % LAB HEMETOLOGY METHOD 06/25/2024 10:51 AM [facility] NRBC Absolute 0.00 <0.10 K/mcL LAB HEMETOLOGY METHOD 06/25/2024 10:51 AM [facility] Neutrophils Relative 77.4 % LAB HEMETOLOGY METHOD 06/25/2024 10:51 AM [facility] Lymphocytes Relative 9.0 % LAB HEMETOLOGY METHOD 06/25/2024 10:51 AM EST [facility] Monocytes Relative 11.0 % LAB HEMETOLOGY METHOD 06/25/2024 10:51 AM [facility] Eosinophils Relative 1.5 % LAB HEMETOLOGY METHOD 06/25/2024 10:51 AM [facility] Basophils Relative 0.4 % LAB HEMETOLOGY METHOD 06/25/2024 10:51 AM [facility] Immature Granulocytes Relative 0.7 % LAB HEMETOLOGY METHOD 06/25/2024 10:51 AM [facility] Neutrophils Absolute 8.14(H) 1.50 - 7.00 K/mcL LAB HEMETOLOGY METHOD 06/25/2024 10:51 AM [facility] Lymphocytes Absolute 0.94(L) 1.00 - 5.00 K/mcL LAB HEMETOLOGY METHOD 06/25/2024 10:51 AM [facility] Monocytes Absolute 1.15(H) 0.20 - 1.00 K/mcL LAB HEMETOLOGY METHOD 06/25/2024 10:51 AM [facility] Eosinophils Absolute 0.16 0.00 - 0.50 K/mcL LAB HEMETOLOGY METHOD 06/25/2024 10:51 AM [facility] Basophils Absolute 0.04 0.00 - 0.20 K/mcL LAB HEMETOLOGY METHOD 06/25/2024 10:51 AM [facility] Immature Granulocytes Absolute 0.07(H) 0.00 - 0.03 K/mcL LAB HEMETOLOGY METHOD 06/25/2024 10:51 AM [facility] Blood Venous blood specimen / Unknown Venipuncture / Unknown 06/25/2024 5:55 AM EST 06/25/2024 10:03 AM EST Viola Tubbs MD LAB BLOOD ORDERABLES [facility] [address] [place] [address], * (ABNORMAL) Magnesium (06/25/2024 5:55 AM EST) [facility] Magnesium 1.7(L) 1.9 - 2.6 mg/dL LAB CHEMISTRY METHOD 06/25/2024 11:20 AM EST [facility] Blood Venous blood specimen / Unknown Venipuncture / Unknown 06/25/2024 5:55 AM EST 06/25/2024 10:03 AM EST Viola Tubbs MD LAB BLOOD ORDERABLES [facility] [address] [place] [address], * (ABNORMAL) Comprehensive metabolic panel (06/25/2024 5:55 AM EST) [facility] Sodium 141 133 - 145 mmol/L LAB CHEMISTRY METHOD 06/25/2024 11:40 AM [facility] Potassium 4.3 3.5 - 5.5 mmol/L LAB CHEMISTRY METHOD 06/25/2024 11:40 AM [facility] Chloride 100 96 - 110 mmol/L LAB CHEMISTRY METHOD 06/25/2024 11:40 AM [facility] CO2 38(H) 21 - 32 mmol/L LAB CHEMISTRY METHOD 06/25/2024 11:40 AM [facility] Anion Gap 3 3 - 11 LAB CHEMISTRY METHOD 06/25/2024 11:40 AM [facility] Glucose 135(H) 70 - 100 mg/dL LAB CHEMISTRY METHOD 06/25/2024 11:40 AM [facility] BUN 31(H) 5 - 25 mg/dL LAB CHEMISTRY METHOD 06/25/2024 11:40 AM [facility] Creatinine 0.72 0.50 - 1.10 mg/dL LAB CHEMISTRY METHOD 06/25/2024 11:40 AM [facility] eGFR 87 >=60 mL/min/1. 73m2 LAB CHEMISTRY METHOD 06/25/2024 11:40 AM [facility] Comment:Calculation based on the??Chronic Kidney Disease Epidemiology Collaboration (CKD-EPI) equation refit??without adjustment for race. BUN/Creatinine Ratio 43.1 LAB CHEMISTRY METHOD 06/25/2024 11:40 AM [facility] Calcium 8.9 8.5 - 10.5 mg/dL LAB CHEMISTRY METHOD 06/25/2024 11:40 AM [facility] AST (SGOT) 20 10 - 42 unit/L LAB CHEMISTRY METHOD 06/25/2024 11:40 AM [facility] ALT (SGPT) 33 10 - 60 unit/L LAB CHEMISTRY METHOD 06/25/2024 11:40 AM [facility] Alkaline Phosphatase 88 42 - 121 unit/L LAB CHEMISTRY METHOD 06/25/2024 11:40 AM [facility] Total Protein 6.9 6.0 - 8.0 g/dL LAB CHEMISTRY METHOD 06/25/2024 11:40 AM [facility] Albumin 2.7(L) 3.2 - 5.0 g/dL LAB CHEMISTRY METHOD 06/25/2024 11:40 AM [facility] Total Bilirubin 0.4 0.0 - 1.4 mg/dL LAB CHEMISTRY METHOD 06/25/2024 11:40 AM [facility] Blood Venous blood specimen / Unknown Venipuncture / Unknown 06/25/2024 5:55 AM EST 06/25/2024 10:03 AM EST Viola Tubbs MD LAB BLOOD ORDERABLES [facility] [address] [place] [address], documented in this encounter Visit Diagnoses Diagnosis Encounter for other general examination documented in this encounter Care Teams Balloon Design Printer Relationship Specialty Start Date End Date Dmitry Jason MD [address] [place] [phone] PCP - General Internal Medicine 07/02/24 documented as of this encounter
--- OUTSIDE RECORDS SUMMARY | 2024-07-10 15:32 | XMS_ITS | Encounter Summary ---
[facility] Organization [facility] Address [address] [place] [address] Care Team Providers Care Cruise Guide Name Role Phone Dmitry Jason MD Primary Care Provider [phone] Encounter Details Date Type Department Care Team (Late st Contact Info) Description 07/03/2024 Lab Requisition [facility] - Main Lab [address] [place] [address] Viola Tubbs MD [address] [place] [phone] Encounter for other general examination Social History [...] LAB CHEMISTRY METHOD 07/03/2024 12:38 PM EST [facility] Potassium 5.0 3.5 - 5.5 mmol/L LAB CHEMISTRY METHOD 07/03/2024 12:38 PM EST [facility] Chloride 94(L) 96 - 110 mmol/L LAB CHEMISTRY METHOD 07/03/2024 12:38 PM EST [facility] CO2 42(HH) 21 - 32 mmol/L LAB CHEMISTRY METHOD 07/03/2024 12:38 PM EST [facility] Anion Gap 2(L) 3 - 11 LAB CHEMISTRY METHOD 07/03/2024 12:38 PM [facility] Glucose 92 70 - 100 mg/dL LAB CHEMISTRY METHOD 07/03/2024 12:38 PM [facility] BUN 29(H) 5 - 25 mg/dL LAB CHEMISTRY METHOD 07/03/2024 12:38 PM [facility] Creatinine 0.66 0.50 - 1.10 mg/dL LAB CHEMISTRY METHOD 07/03/2024 12:38 PM [facility] eGFR 91 >=60 mL/min/1. 73m2 LAB CHEMISTRY METHOD 07/03/2024 12:38 PM [facility] Comment:Calculation based on the??Chronic Kidney Disease Epidemiology Collaboration (CKD-EPI) equation refit??without adjustment for race. BUN/Creatinine Ratio 43.9 LAB CHEMISTRY METHOD 07/03/2024 12:38 PM [facility] Calcium 9.2 8.5 - 10.5 mg/dL LAB CHEMISTRY METHOD 07/03/2024 12:38 PM [facility] Blood Venous blood specimen / Unknown Venipuncture / Unknown 07/03/2024 5:55 AM EST 07/03/2024 10:31 AM EST Viola Tubbs MD LAB BLOOD ORDERABLES Performing Organization Address City/[facility]/ZIP Co de Phone Number [facility] [address] [place] [address], documented in this encounter Visit Diagnoses Diagnosis Encounter for other general examination documented in this encounter Care Teams Cruise Guide Relationship Specialty Start Date End Date Dmitry Jason MD [address] [place] [phone] PCP - General Internal Medicine 07/02/24 documented as of this encounter
--- OUTSIDE RECORDS SUMMARY | 2024-07-10 15:32 | XMS_ITS | Encounter Summary ---
[facility] Organization [facility] Address [address] [place] [address] Care Team Providers Care School Library Media Program Director Name Role Phone Dmitry Jason MD Primary Care Provider [phone] Encounter Details Date Type Department Care Team (Late st Contact Info) Description 07/02/2024 Lab Requisition [facility] - Main Lab [address] [place] [address] Viola Tubbs MD [address] [place] [address] Encounter for other general examination Social History [...] mmol/L LAB CHEMISTRY METHOD 07/02/2024 12:14 PM [facility] Potassium 4.9 3.5 - 5.5 mmol/L LAB CHEMISTRY METHOD 07/02/2024 12:[address] [facility] Chloride 97 96 - 110 mmol/L LAB CHEMISTRY METHOD 07/02/2024 12:14 PM [facility] CO2 45(HH) 21 - 32 mmol/L LAB CHEMISTRY METHOD 07/02/2024 12:14 PM [facility] Anion Gap -2(L) 3 - 11 LAB CHEMISTRY METHOD 07/02/2024 12:14 PM [facility] Glucose 146(H) 70 - 100 mg/dL LAB CHEMISTRY METHOD 07/02/2024 12:14 PM [facility] BUN 31(H) 5 - 25 mg/dL LAB CHEMISTRY METHOD 07/02/2024 12:14 PM [facility] Creatinine 0.63 0.50 - 1.10 mg/dL LAB CHEMISTRY METHOD 07/02/2024 12:14 PM [facility] eGFR 92 >=60 mL/min/1. 73m2 LAB CHEMISTRY METHOD 07/02/2024 12:14 PM [facility] Comment:Calculation based on the??Chronic Kidney Disease Epidemiology Collaboration (CKD-EPI) equation refit??without adjustment for race. BUN/Creatinine Ratio 49.2 LAB CHEMISTRY METHOD 07/02/2024 12:14 PM [facility] Calcium 9.2 8.5 - 10.5 mg/dL LAB CHEMISTRY METHOD 07/02/2024 12:14 PM [facility] Blood Venous blood specimen / Unknown Venipuncture / Unknown 07/02/2024 6:07 AM EST 07/02/2024 9:39 AM EST Viola Tubbs MD LAB BLOOD ORDERABLES [facility] [address] [place] [address], documented in this encounter Visit Diagnoses Diagnosis Encounter for other general examination documented in this encounter Care Teams School Library Media Program Director Relationship Specialty Start Date End Date Dmitry Jason MD [address] [place] [phone] PCP - General Internal Medicine 07/02/24 documented as of this encounter
--- OUTSIDE RECORDS SUMMARY | 2024-07-10 15:32 | XMS_ITS | Encounter Summary ---
Author Organization [facility] Address [address] [place] [address] Care Team Providers Care Respiratory Clinician Name Role Phone Dmitry Jason MD Primary Care Provider Encounter Details Date Type Department Care Team (Late st Contact Info) Description 07/05/2024 Lab Requisition [facility] - Main Lab [address] [facility] [place] [address] Viola Tubbs MD [address] [place] [phone] Encounter for other general examination Social History [...] examination documented in this encounter Care Teams Respiratory Clinician Relationship Specialty Start Date End Date Dmitry Jason MD [address] [place] [address] [phone] PCP - General Internal Medicine 07/02/24 documented as of this encounter
--- OUTSIDE RECORDS SUMMARY | 2024-07-10 15:32 | XMS_ITS | Encounter Summary ---
Author Organization [facility] Address [address] [place] [address] Care Team Providers Care Bulb Tester Name Role Phone Dmitry Jason MD Primary Care Provider [phone] Encounter Details Date Type Department Care Team (Late st Contact Info) Description 06/28/2024 Lab Requisition [facility] - Main Lab [address] [place] [address] Viola Tubbs MD [address] [place] [phone] Encounter for other general examination Social History [...] auto differential (06/28/2024 6:19 AM EST) Pathologist [facility] WBC 8.0 4.8 - 10.8 K/mcL LAB HEMETOLOGY METHOD 06/28/2024 11:53 AM [facility] RBC 3.70(L) 3.80 - 4.80 M/mcL LAB HEMETOLOGY METHOD 06/28/2024 11:53 AM [facility] Hemoglobin 10.1(L) 11.5 - 16.0 g/dL LAB HEMETOLOGY METHOD 06/28/2024 11:53 AM [facility] Hematocrit 35.5 35.0 - 47.0 % LAB HEMETOLOGY METHOD 06/28/2024 11:53 AM [facility] MCV 95.9 79.0 - 98.0 FL LAB HEMETOLOGY METHOD 06/28/2024 11:53 AM [facility] MCH 27.3 27.0 - 32.0 pcg LAB HEMETOLOGY METHOD 06/28/2024 11:53 AM [facility] MCHC 28.5(L) 32.0 - 37.0 g/dL LAB HEMETOLOGY METHOD 06/28/2024 11:53 AM [facility] RDW 18.8(H) 11.0 - 15.0 % LAB HEMETOLOGY METHOD 06/28/2024 11:53 AM [facility] Platelets 136 130 - 400 K/mcL LAB HEMETOLOGY METHOD 06/28/2024 11:53 AM [facility] MPV 9.9 7.0 - 11.0 FL LAB HEMETOLOGY METHOD 06/28/2024 11:53 AM [facility] NRBC 0.0 <1.0 % LAB HEMETOLOGY METHOD 06/28/2024 11:53 AM [facility] NRBC Absolute 0.00 <0.10 K/mcL LAB HEMETOLOGY METHOD 06/28/2024 11:53 AM [facility] Neutrophils Relative 81.9 % LAB HEMETOLOGY METHOD 06/28/2024 11:53 AM [facility] Lymphocytes Relative 8.0 % LAB HEMETOLOGY METHOD 06/28/2024 11:53 AM [facility] Monocytes Relative 9.3 % LAB HEMETOLOGY METHOD 06/28/2024 11:53 AM [facility] Eosinophils Relative 0.1 % LAB HEMETOLOGY METHOD 06/28/2024 11:53 AM [facility] Basophils Relative 0.1 % LAB HEMETOLOGY METHOD 06/28/2024 11:53 AM [facility] Immature Granulocytes Relative 0.6 % LAB HEMETOLOGY METHOD 06/28/2024 11:53 AM [facility] Neutrophils Absolute 6.51 1.50 - 7.00 K/mcL LAB HEMETOLOGY METHOD 06/28/2024 11:53 AM [facility] Lymphocytes Absolute 0.64(L) 1.00 - 5.00 K/mcL LAB HEMETOLOGY METHOD 06/28/2024 11:53 AM [facility] Monocytes Absolute 0.74 0.20 - 1.00 K/mcL LAB HEMETOLOGY METHOD 06/28/2024 11:53 AM [facility] Eosinophils Absolute 0.01 0.00 - 0.50 K/mcL LAB HEMETOLOGY METHOD 06/28/2024 11:53 AM [facility] Basophils Absolute 0.01 0.00 - 0.20 K/mcL LAB HEMETOLOGY METHOD 06/28/2024 11:53 AM [facility] Immature Granulocytes Absolute 0.05(H) 0.00 - 0.03 K/mcL LAB HEMETOLOGY METHOD 06/28/2024 11:53 AM [facility] Blood Venous blood specimen / Unknown Venipuncture / Unknown 06/28/2024 6:19 AM EST 06/28/2024 11:08 AM EST Viola Tubbs MD LAB BLOOD ORDERABLES Performing Organization Address [facility]/ZIP Co de Phone Number [facility] [address] [place] [address], * Thyroid stimulating hormone (06/28/2024 6:19 AM EST) TSH 1.72 0.40 - 4.00 mcIU/mL LAB CHEMISTRY METHOD 06/28/2024 12:29 PM EST [facility] Blood Venous blood specimen / Unknown Venipuncture / Unknown 06/28/2024 6:19 AM EST 06/28/2024 11:08 AM EST Viola Tubbs MD LAB BLOOD ORDERABLES Performing Organization Address [facility] Co de Phone Number [facility] [address] [place] [address], * Magnesium (06/28/2024 6:19 AM EST) Pathologist [facility] Magnesium 2.2 1.9 - 2.6 mg/dL LAB CHEMISTRY METHOD 06/28/2024 12:22 PM EST [facility] Blood Venous blood specimen / Unknown Venipuncture / Unknown 06/28/2024 6:19 AM EST 06/28/2024 11:08 AM EST Viola Tubbs MD LAB BLOOD ORDERABLES Performing Organization Address City/[facility]/ZIP Co de Phone Number [facility] [address] [place] [address], [place] [phone] * (ABNORMAL) Comprehensive metabolic panel (06/28/2024 6:19 AM EST) Sodium 138 133 - 145 mmol/L LAB CHEMISTRY METHOD 06/28/2024 12:46 PM EST [facility] Potassium 4.3 3.5 - 5.5 mmol/L LAB CHEMISTRY METHOD 06/28/2024 12:46 PM [facility] Chloride 99 96 - 110 mmol/L LAB CHEMISTRY METHOD 06/28/2024 12:46 PM [facility] CO2 38(H) 21 - 32 mmol/L LAB CHEMISTRY METHOD 06/28/2024 12:46 PM [facility] Anion Gap 1(L) 3 - 11 LAB CHEMISTRY METHOD 06/28/2024 12:46 PM [facility] Glucose 99 70 - 100 mg/dL LAB CHEMISTRY METHOD 06/28/2024 12:46 PM [facility] BUN 65(H) 5 - 25 mg/dL LAB CHEMISTRY METHOD 06/28/2024 12:46 PM [facility] Comment:Results verified by repeat testing Creatinine 0.89 0.50 - 1.10 mg/dL LAB CHEMISTRY METHOD 06/28/2024 12:46 PM [facility] eGFR 67 >=60 mL/min/1. 73m2 LAB CHEMISTRY METHOD 06/28/2024 12:46 PM [facility] Comment:Calculation based on the??Chronic Kidney Disease Epidemiology Collaboration (CKD-EPI) equation refit??without adjustment for race. BUN/Creatinine Ratio 73.0 LAB CHEMISTRY METHOD 06/28/2024 12:46 PM [facility] Calcium 8.5 8.5 - 10.5 mg/dL LAB CHEMISTRY METHOD 06/28/2024 12:46 PM [facility] AST (SGOT) 23 10 - 42 unit/L LAB CHEMISTRY METHOD 06/28/2024 12:46 PM [facility] ALT (SGPT) 25 10 - 60 unit/L LAB CHEMISTRY METHOD 06/28/2024 12:46 PM [facility] Alkaline Phosphatase 76 42 - 121 unit/L LAB CHEMISTRY METHOD 06/28/2024 12:46 PM [facility] Total Protein 6.4 6.0 - 8.0 g/dL LAB CHEMISTRY METHOD 06/28/2024 12:46 PM EST [facility] Albumin 2.4(L) 3.2 - 5.0 g/dL LAB CHEMISTRY METHOD 06/28/2024 12:46 PM EST [facility] Total Bilirubin 0.4 0.0 - 1.4 mg/dL LAB CHEMISTRY METHOD 06/28/2024 12:46 PM EST [facility] Blood Venous blood specimen / Unknown Venipuncture / Unknown 06/28/2024 6:19 AM EST 06/28/2024 11:08 AM EST Viola Tubbs MD LAB BLOOD ORDERABLES [facility] [address] [place] [address], documented in this encounter Visit Diagnoses Diagnosis Encounter for other general examination documented in this encounter Care Teams Bulb Tester Relationship Specialty Start Date End Date Dmitry Jason MD [address] [place] [phone] PCP - General Internal Medicine 07/02/24 documented as of this encounter
--- OUTSIDE RECORDS SUMMARY | 2024-07-10 15:32 | XMS_ITS | Encounter Summary ---
Author Organization [facility] Address [address] [place] [address] Care Team Providers Care Esthetician/Owner Name Role Phone Dmitry Jason MD Primary Care Provider [phone] Encounter Details Date Type Department Care Team (Late st Contact Info) Description 07/04/2024 Lab Requisition [facility] - Main Lab [address] [place] [address] Viola Tubbs MD [address] [place] [address] Encounter for other general examination Social History [...] LAB CHEMISTRY METHOD 07/04/2024 11:50 AM EST [facility] Potassium 4.8 3.5 - 5.5 mmol/L LAB CHEMISTRY METHOD 07/04/2024 11:50 AM EST [facility] Chloride 96 96 - 110 mmol/L LAB CHEMISTRY METHOD 07/04/2024 11:50 AM EST [facility] CO2 42(HH) 21 - 32 mmol/L LAB CHEMISTRY METHOD 07/04/2024 11:50 AM EST [facility] Anion Gap 1(L) 3 - 11 LAB CHEMISTRY METHOD 07/04/2024 11:[address] [facility] Glucose 114(H) 70 - 100 mg/dL LAB CHEMISTRY METHOD 07/04/2024 11:[address] [facility] BUN 22 5 - 25 mg/dL LAB CHEMISTRY METHOD 07/04/2024 11:[address] [facility] Creatinine 0.66 0.50 - 1.10 mg/dL LAB CHEMISTRY METHOD 07/04/2024 11:[address] [facility] eGFR 91 >=60 mL/min/1. 73m2 LAB CHEMISTRY METHOD 07/04/2024 11:[address] [facility] Comment:Calculation based on the??Chronic Kidney Disease Epidemiology Collaboration (CKD-EPI) equation refit??without adjustment for race. BUN/Creatinine Ratio 33.3 LAB CHEMISTRY METHOD 07/04/2024 11:[address] [facility] Calcium 8.6 8.5 - 10.5 mg/dL LAB CHEMISTRY METHOD 07/04/2024 11:[address] [facility] Blood Venous blood specimen / Unknown Venipuncture / Unknown 07/04/2024 5:50 AM EST 07/04/2024 9:24 AM EST Viola Tubbs MD LAB BLOOD ORDERABLES Performing Organization Address City/[facility]/ZIP Co de Phone Number [facility] [address] [place] [address], documented in this encounter Visit Diagnoses Diagnosis Encounter for other general examination documented in this encounter Care Teams Esthetician/Owner Relationship Specialty Start Date End Date Dmitry Jason MD [address] [place] [phone] PCP - General Internal Medicine 07/02/24 documented as of this encounter
--- OUTSIDE RECORDS SUMMARY | 2024-07-10 15:32 | XMS_ITS | Clinical Summary ---
Author Organization [address] Address [address] [place] [address] Phone Care Team Providers Care Shoemaking Finisher Name Role Phone Dmitry Jason MD Primary Care Provider [phone] Encounters Date Type Department Care Team Description 07/08/2024 Lab Requisition [facility] [address] [place] [address] Viola Tubbs MD Encounter for other general examination 07/05/2024 Lab Requisition [facility] [address] [place] [address] Viola Tubbs MD Encounter for other general examination 07/04/2024 Lab Requisition [facility] [address] [place] [address] Viola Tubbs MD Encounter for other general examination 07/03/2024 Lab Requisition [facility] [address] [place] [address] Viola Tubbs MD Encounter for other general examination 07/02/2024 Lab Requisition [facility] [address] [place] [address] Viola Tubbs MD Encounter for other general examination 06/29/2024 Lab Requisition [facility] [address] [place] [address] Viola Tubbs MD Encounter for other general examination 06/28/2024 Lab Requisition [facility] Lab [address] [place] [address] Viola Tubbs MD Encounter for other general examination 06/25/2024 Lab Requisition [facility] - Main Lab [address] [place] [address] Viola Tubbs MD Encounter for [...] AM EST Encounter for other general examination [facility] DEXA AXIAL SKELETON Routine 10/26/2022 11:00 AM EDT Age-related osteoporosis without current pathological fracture [facility] SCREENING DIGITAL Routine 10/25/2022 4:04 PM EDT Encounter for screening mammogram for malignant neoplasm of breast from Last 3 Months or Most Recently Relevant to Health Maintenance Results * (ABNORMAL) CBC auto differential (07/08/2024 6:27 AM EST) Only the most recent of3 resultswithin the time period is included. WBC 8.1 4.8 - 10.8 K/mcL LAB HEMETOLOGY METHOD 07/08/2024 10:07 AM [facility] RBC 3.50(L) 3.80 - 4.80 M/mcL LAB HEMETOLOGY METHOD 07/08/2024 10:07 AM [facility] Hemoglobin 9.5(L) 11.5 - 16.0 g/dL LAB HEMETOLOGY METHOD 07/08/2024 10:07 AM [facility] Hematocrit 32.5(L) 35.0 - 47.0 % LAB HEMETOLOGY METHOD 07/08/2024 10:07 AM [facility] MCV 93.4 79.0 - 98.0 FL LAB HEMETOLOGY METHOD 07/08/2024 10:07 AM [facility] MCH 27.3 27.0 - 32.0 pcg LAB HEMETOLOGY METHOD 07/08/2024 10:07 AM [facility] MCHC 29.2(L) 32.0 - 37.0 g/dL LAB HEMETOLOGY METHOD 07/08/2024 10:07 AM [facility] RDW 18.5(H) 11.0 - 15.0 % LAB HEMETOLOGY METHOD 07/08/2024 10:07 AM [facility] Platelets 353 130 - 400 K/mcL LAB HEMETOLOGY METHOD 07/08/2024 10:07 AM [facility] MPV 9.9 7.0 - 11.0 FL LAB HEMETOLOGY METHOD 07/08/2024 10:07 AM [facility] NRBC 0.0 <1.0 % LAB HEMETOLOGY METHOD 07/08/2024 10:07 AM [facility] NRBC Absolute 0.00 <0.10 K/mcL LAB HEMETOLOGY METHOD 07/08/2024 10:07 AM [facility] Neutrophils Relative 77.8 % LAB HEMETOLOGY METHOD 07/08/2024 10:07 AM [facility] Lymphocytes Relative 8.4 % LAB HEMETOLOGY METHOD 07/08/2024 10:07 AM [facility] Monocytes Relative 11.5 % LAB HEMETOLOGY METHOD 07/08/2024 10:07 AM [facility] Eosinophils Relative 1.5 % LAB HEMETOLOGY METHOD 07/08/2024 10:07 AM [facility] Basophils Relative 0.4 % LAB HEMETOLOGY METHOD 07/08/2024 10:07 AM [facility] Immature Granulocytes Relative 0.4 % LAB HEMETOLOGY METHOD 07/08/2024 10:07 AM [facility] Neutrophils Absolute 6.29 1.50 - 7.00 K/mcL LAB HEMETOLOGY METHOD 07/08/2024 10:07 AM [facility] Lymphocytes Absolute 0.68(L) 1.00 - 5.00 K/mcL LAB HEMETOLOGY METHOD 07/08/2024 10:07 AM [facility] Monocytes Absolute 0.93 0.20 - 1.00 K/mcL LAB HEMETOLOGY METHOD 07/08/2024 10:07 AM [facility] Eosinophils Absolute 0.12 0.00 - 0.50 K/mcL LAB HEMETOLOGY METHOD 07/08/2024 10:07 AM EST [facility] Basophils Absolute 0.03 0.00 - 0.20 K/[facility] LAB HEMETOLOGY METHOD 07/08/2024 10:07 AM EST [facility] Immature Granulocytes Absolute 0.03 0.00 - 0.03 K/[facility] LAB HEMETOLOGY METHOD 07/08/2024 10:07 AM EST [facility] Blood Venous blood specimen / Unknown Venipuncture / Unknown 07/08/2024 6:27 AM EST 07/08/2024 9:00 AM EST Viola Tubbs MD LAB BLOOD ORDERABLES Performing Organization Address [facility]/ZIP Co de Phone Number [facility] [address] [place] [address], * Magnesium (07/08/2024 6:27 AM EST) Only the most recent of3 resultswithin the time period is included. Magnesium 2.1 1.9 - 2.6 mg/dL LAB CHEMISTRY METHOD 07/08/2024 11:01 AM EST [facility] Blood Venous blood specimen / Unknown Venipuncture / Unknown 07/08/2024 6:27 AM EST 07/08/2024 9:00 AM EST Viola Tubbs MD LAB BLOOD ORDERABLES Performing Organization Address [facility]/ZIP Co de Phone Number [facility] [address] [place] [address], [place] [phone] * (ABNORMAL) Basic metabolic panel (07/08/2024 6:27 AM EST) Only the most recent of5 resultswithin the time period is included. Sodium 138 133 - 145 mmol/L LAB CHEMISTRY METHOD 07/08/2024 11:08 AM EST [facility] Potassium 4.4 3.5 - 5.5 mmol/L LAB CHEMISTRY METHOD 07/08/2024 11:08 AM [facility] Chloride 98 96 - 110 mmol/L LAB CHEMISTRY METHOD 07/08/2024 11:08 AM [facility] CO2 37(H) 21 - 32 mmol/L LAB CHEMISTRY METHOD 07/08/2024 11:08 AM [facility] Anion Gap 3 3 - 11 LAB CHEMISTRY METHOD 07/08/2024 11:08 AM [facility] Glucose 148(H) 70 - 100 mg/dL LAB CHEMISTRY METHOD 07/08/2024 11:08 AM [facility] BUN 26(H) 5 - 25 mg/dL LAB CHEMISTRY METHOD 07/08/2024 11:08 AM [facility] Creatinine 0.59 0.50 - 1.10 mg/dL LAB CHEMISTRY METHOD 07/08/2024 11:08 AM [facility] eGFR 94 >=60 mL/min/1. 73m2 LAB CHEMISTRY METHOD 07/08/2024 11:08 AM [facility] Comment:Calculation based on the??Chronic Kidney Disease Epidemiology Collaboration (CKD-EPI) equation refit??without adjustment for race. BUN/Creatinine Ratio 44.1 LAB CHEMISTRY METHOD 07/08/2024 11:08 AM [facility] Calcium 8.5 8.5 - 10.5 mg/dL LAB CHEMISTRY METHOD 07/08/2024 11:08 AM [facility] Blood Venous blood specimen / Unknown Venipuncture / Unknown 07/08/2024 6:27 AM EST 07/08/2024 9:00 AM EST Viola Tubbs MD LAB BLOOD ORDERABLES [facility] [address] [place] [address], * Thyroid stimulating hormone (06/28/2024 6:19 AM EST) TSH 1.72 0.40 - 4.00 mcIU/mL LAB CHEMISTRY METHOD 06/28/2024 12:29 PM [facility] Blood Venous blood specimen / Unknown Venipuncture / Unknown 06/28/2024 6:19 AM EST 06/28/2024 11:08 AM EST Viola Tubbs MD LAB BLOOD ORDERABLES [facility] [address] [place] [address], * (ABNORMAL) Comprehensive metabolic panel (06/28/2024 6:19 AM EST) Only the most recent of2 resultswithin the time period is included. Pathologist [facility] Sodium 138 133 - 145 mmol/L LAB CHEMISTRY METHOD 06/28/2024 12:46 PM [facility] Potassium 4.3 3.5 - 5.5 mmol/L LAB CHEMISTRY METHOD 06/28/2024 12:46 PM [facility] Chloride 99 96 - 110 mmol/L LAB CHEMISTRY METHOD 06/28/2024 12:46 PM [facility] CO2 38(H) 21 - 32 mmol/L LAB CHEMISTRY METHOD 06/28/2024 12:46 PM [facility] Anion Gap 1(L) 3 - 11 LAB CHEMISTRY METHOD 06/28/2024 12:46 PM [facility] Glucose 99 70 - 100 mg/dL LAB CHEMISTRY METHOD 06/28/2024 12:46 PM [facility] BUN 65(H) 5 - 25 mg/dL LAB CHEMISTRY METHOD 06/28/2024 12:46 PM [facility] Comment:Results verified by repeat testing Creatinine 0.89 0.50 - 1.10 mg/dL LAB CHEMISTRY METHOD 06/28/2024 12:46 PM [facility] eGFR 67 >=60 mL/min/1. 73m2 LAB CHEMISTRY METHOD 06/28/2024 12:46 PM [facility] Comment:Calculation based on the??Chronic Kidney Disease Epidemiology Collaboration (CKD-EPI) equation refit??without adjustment for race. BUN/Creatinine Ratio 73.0 LAB CHEMISTRY METHOD 06/28/2024 12:46 PM [facility] Calcium 8.5 8.5 - 10.5 mg/dL LAB CHEMISTRY METHOD 06/28/2024 12:46 PM [facility] AST (SGOT) 23 10 - 42 unit/L LAB CHEMISTRY METHOD 06/28/2024 12:46 PM [facility] ALT (SGPT) 25 10 - 60 unit/L LAB CHEMISTRY METHOD 06/28/2024 12:46 PM [facility] Alkaline Phosphatase 76 42 - 121 unit/L LAB CHEMISTRY METHOD 06/28/2024 12:46 PM [facility] Total Protein 6.4 6.0 - 8.0 g/dL LAB CHEMISTRY METHOD 06/28/2024 12:46 PM [facility] Albumin 2.4(L) 3.2 - 5.0 g/dL LAB CHEMISTRY METHOD 06/28/2024 12:46 PM [facility] Total Bilirubin 0.4 0.0 - 1.4 mg/dL LAB CHEMISTRY METHOD 06/28/2024 12:46 PM [facility] Blood Venous blood specimen / Unknown Venipuncture / Unknown 06/28/2024 6:19 AM EST 06/28/2024 11:08 AM EST Viola Tubbs MD LAB BLOOD ORDERABLES [facility] [address] [place] [address], * [facility] DEXA AXIAL SKELETON (10/26/2022 11:00 AM EDT) Anatomical Region Laterality Modality Mammography 10/25/2022 1:52 PM EDT Narrative 10/26/2022 11:00 AM EDT [facility] Diagnostic Imaging Department [address] [place] [address] Patient: ??OSCAR,ANU ?/Age/Sex: 1945 - Unit#: ??[id number] ? Location/Status: ??SPDIMAM/REG CLI ? Mnemonic/Ordering Site: [...] probability of hip fracture of 13.1%. Code 25204 Dictating Physician: ??EDU MATHUR MD Electronically Signed by: ??EDU MATHUR MD Dic Date/Time: ??10/26/22 1059 Sign date/Time: ??10/26/22 1100 Procedure Note Edu Mathur MD - 07/07/2023 [facility] Diagnostic Imaging Department [address] [place] [address] Patient: ANU MOORE /Age/Sex: 1945 - 77 - F Unit#: [id number] [facility]/Ordering Site: MAMDEXAAX/SPMAM Ordering Physician: MARCELA MAE Sabas Dexa Axial Skeleton - 10/25/22 - 7505 HISTORY: The patient is a 77-year-old postmenopausal [...] density of the femurs bilaterally is 0.608 gm/ba2ujuor is 60% of that of young normals [...] probability of hip fracture of 13.1%. Code 72463 Dictating Physician: EDU MATHUR MD Electronically Signed by: EDU MATHUR MD Dic Date/Time: 10/26/22 1059 Sign date/Time: 10/26/22 1100 Marcela Mae NP IMG BI PROCEDURES * SABAS SCREENING DIGITAL (10/25/2022 4:04 PM EDT) Anatomical Region Laterality Modality Mammography 10/25/2022 1:54 PM EDT Narrative 10/25/2022 4:04 PM EDT [facility] Diagnostic Imaging Department [address] [place] [address] Patient: ??MITROWSKI,ANU ?/Age/Sex: 1945 - 77 - F Unit#: ??[id number] ? Location/Status: ??SPDIMAM/REG CLI ? Mnemonic/Ordering Site: [...] the MLO projection. Computer aided detection with [employer] 7.2-H and [employer] 3D 3.1 was employed. TISSUE DENSITY: c. [...] Routine screening mammogram BILATERAL in 1 year. [address]01, 84826 3342F, 7025F Dictating Physician: ??AMANDO PABON MD Electronically Signed by: ??AMANDO PABON MD Dic Date/Time: ??10/25/22 1603 Sign date/Time: ??10/25/22 1604 Procedure Note Amando Pabon MD - 07/07/2023 [facility] Diagnostic Imaging Department [address] [place] [address] Patient: ANU MOORE/Age/Sex: 1945 - 77 - F Unit#: [id number] Location/Status: SPDIMAM/REG CLI Mnemonic/Ordering Site: [facility] Ordering Physician: MARCELA MAE Sabas Screening Digital [...] the MLO projection. Computer aided detection with [employer] 7.2-H and[employer] 3D 3.1 was employed. TISSUE DENSITY: c. [...] Routine screening mammogram BILATERAL in 1 year. [address]344, 28898 3342F, 7025F Dictating Physician: AMANDO PABON MD Electronically Signed by: AMANDO PABON MD Dic Date/Time: 10/25/22 1603 Sign date/Time: 10/25/22 1604 Marcela Mae INSPECTOR PACKAGER IMG BI PROCEDURES from Last 3 Months or Most Recently Relevant to Health Maintenance Care Teams Shoemaking Finisher Relationship Specialty Start Date End Date Dmitry Jason MD [address] [place] [phone] PCP - General Internal Medicine 07/02/24
--- OUTSIDE RECORDS SUMMARY | 2024-07-10 15:32 | XMS_ITS | Encounter Summary ---
Author Organization [facility] Address [address] [place] [address] Care Team Providers Care Pattern Duplicator Name Role Phone Dmitry Jason MD Primary Care Provider [phone] Encounter Details Date Type Department Care Team (Late st Contact Info) Description 07/08/2024 Lab Requisition [facility] - Main Lab [address] [place] [address] Viola Tubbs MD [address] [place] [id number] Encounter for other general examination Social History [...] CBC auto differential (07/08/2024 6:27 AM EST) [facility] Signature WBC 8.1 4.8 - 10.8 K/mcL LAB HEMETOLOGY METHOD 07/08/2024 10:07 AM EST [facility] RBC 3.50(L) 3.80 - 4.80 M/mcL LAB HEMETOLOGY METHOD 07/08/2024 10:07 AM [facility] LAB Hemoglobin 9.5(L) 11.5 - 16.0 g/dL LAB HEMETOLOGY METHOD 07/08/2024 10:07 AM [facility] LAB Hematocrit 32.5(L) 35.0 - 47.0 % LAB HEMETOLOGY METHOD 07/08/2024 10:07 AM [facility] LAB MCV 93.4 79.0 - 98.0 FL LAB HEMETOLOGY METHOD 07/08/2024 10:07 AM [facility] LAB MCH 27.3 27.0 - 32.0 pcg LAB HEMETOLOGY METHOD 07/08/2024 10:07 AM [facility] LAB MCHC 29.2(L) 32.0 - 37.0 g/dL LAB HEMETOLOGY METHOD 07/08/2024 10:07 AM [facility] LAB RDW 18.5(H) 11.0 - 15.0 % LAB HEMETOLOGY METHOD 07/08/2024 10:07 AM [facility] LAB Platelets 353 130 - 400 K/mcL LAB HEMETOLOGY METHOD 07/08/2024 10:07 AM [facility] LAB MPV 9.9 7.0 - 11.0 FL LAB HEMETOLOGY METHOD 07/08/2024 10:07 AM [facility] LAB NRBC 0.0 <1.0 % LAB HEMETOLOGY METHOD 07/08/2024 10:07 AM [facility] LAB NRBC Absolute 0.00 <0.10 K/mcL LAB HEMETOLOGY METHOD 07/08/2024 10:07 AM [facility] LAB Neutrophils Relative 77.8 % LAB HEMETOLOGY METHOD 07/08/2024 10:07 AM [facility] LAB Lymphocytes Relative 8.4 % LAB HEMETOLOGY METHOD 07/08/2024 10:07 AM [facility] LAB Monocytes Relative 11.5 % LAB HEMETOLOGY METHOD 07/08/2024 10:07 AM [facility] LAB Eosinophils Relative 1.5 % LAB HEMETOLOGY METHOD 07/08/2024 10:07 AM [facility] LAB Basophils Relative 0.4 % LAB HEMETOLOGY METHOD 07/08/2024 10:07 AM [facility] LAB Immature Granulocytes Relative 0.4 % LAB HEMETOLOGY METHOD 07/08/2024 10:07 AM [facility] LAB Neutrophils Absolute 6.29 1.50 - 7.00 K/mcL LAB HEMETOLOGY METHOD 07/08/2024 10:07 AM [facility] LAB Lymphocytes Absolute 0.68(L) 1.00 - 5.00 K/mcL LAB HEMETOLOGY METHOD 07/08/2024 10:07 AM [facility] LAB Monocytes Absolute 0.93 0.20 - 1.00 K/mcL LAB HEMETOLOGY METHOD 07/08/2024 10:07 AM [facility] LAB Eosinophils Absolute 0.12 0.00 - 0.50 K/mcL LAB HEMETOLOGY METHOD 07/08/2024 10:07 AM [facility] LAB Basophils Absolute 0.03 0.00 - 0.20 K/mcL LAB HEMETOLOGY METHOD 07/08/2024 10:07 AM [facility] LAB Immature Granulocytes Absolute 0.03 0.00 - 0.03 K/mcL LAB HEMETOLOGY METHOD 07/08/2024 10:07 AM [facility] LAB Blood Venous blood specimen / Unknown Venipuncture / Unknown 07/08/2024 6:27 AM EST 07/08/2024 9:00 AM EST Viola Tubbs MD LAB BLOOD ORDERABLES [facility] [address] [place] [address], [place] [phone] * Magnesium (07/08/2024 6:27 AM EST) [facility] Magnesium 2.1 1.9 - 2.6 mg/dL LAB CHEMISTRY METHOD 07/08/2024 11:01 AM EST [facility] LAB Blood Venous blood specimen / Unknown Venipuncture / Unknown 07/08/2024 6:27 AM EST 07/08/2024 9:00 AM EST Viola Tubbs MD LAB BLOOD ORDERABLES [facility] [address] [place] [address], [place] [phone] * (ABNORMAL) Basic metabolic panel (07/08/2024 6:27 AM EST) [facility] Sodium 138 133 - 145 mmol/L LAB CHEMISTRY METHOD 07/08/2024 11:08 AM [facility] Potassium 4.4 3.5 - 5.5 mmol/L LAB CHEMISTRY METHOD 07/08/2024 11:08 AM [facility] Chloride 98 96 - 110 mmol/L LAB CHEMISTRY METHOD 07/08/2024 11:08 AM [facility] LAB CO2 37(H) 21 - 32 mmol/L LAB CHEMISTRY METHOD 07/08/2024 11:08 AM [facility] Anion Gap 3 3 - 11 LAB CHEMISTRY METHOD 07/08/2024 11:08 AM [facility] Glucose 148(H) 70 - 100 mg/dL LAB CHEMISTRY METHOD 07/08/2024 11:08 AM [facility] BUN 26(H) 5 - 25 mg/dL LAB CHEMISTRY METHOD 07/08/2024 11:08 AM [facility] LAB Creatinine 0.59 0.50 - 1.10 mg/dL LAB CHEMISTRY METHOD 07/08/2024 11:08 AM [facility] LAB eGFR 94 >=60 mL/min/1. 73m2 LAB CHEMISTRY METHOD 07/08/2024 11:08 AM [facility] LAB Comment:Calculation based on the??Chronic Kidney Disease Epidemiology Collaboration (CKD-EPI) equation refit??without adjustment for race. BUN/Creatinine Ratio 44.1 LAB CHEMISTRY METHOD 07/08/2024 11:08 AM [facility] Calcium 8.5 8.5 - 10.5 mg/dL LAB CHEMISTRY METHOD 07/08/2024 11:08 AM [facility] LAB Blood Venous blood specimen / Unknown Venipuncture / Unknown 07/08/2024 6:27 AM EST 07/08/2024 9:00 AM EST Viola Tubbs MD LAB BLOOD ORDERABLES [facility] [address] [place] [address], documented in this encounter Visit Diagnoses Diagnosis Encounter for other general examination documented in this encounter Care Teams Pattern Duplicator Relationship Specialty Start Date End Date Dmitry Jason MD [address] [place] [id number] PCP - General Internal Medicine 07/02/24 documented as of this encounter
== END 2024-07-10 15:30 | disposition home or self-care (01) ==
PROVIDERS: PCP Nurse Practitioner Family; Visit Provider Physician Assistant
DX: S82.142A Displaced bicondylar fracture of left tibia, initial encounter for closed fracture (principal)
CPT/HCPCS: 99213; G2211

== ENCOUNTER → 2024-07-10 14:22 | Outpatient (BNV) | payer MEDICARE, SELFPAY | PROVIDERS: Visit Provider Radiology Diagnostic Radiology | DX: S82.142A Displaced bicondylar fracture of left tibia, initial encounter for closed fracture (principal) | CPT/HCPCS: 73560 ==

== ENCOUNTER 2024-07-12 10:31 | Inpatient (IN) | payer MEDICARE, SELFPAY ==
[2024-07-12] VITALS (13 sets, daily range): BP systolic 135–147; BP diastolic 63–82; PULSE 85–105; RESP 13–29; TEMP 36.6–37.3; O2SAT 92–100; BMI 18.4
--- NOTE | 2024-07-12 | ECG_ITS ---
Test Reason : AFIB Blood Pressure : */* mmHG Vent. Rate : 98 BPM Atrial Rate : 98 BPM P-R Int : 132 ms QRS Dur : 74 ms QT Int : 286 ms P-R-T Axes : 65 38 56 degrees QTcB Int : 365 ms Normal sinus rhythm Possible Left atrial enlargement Nonspecific T wave abnormality Abnormal ECG When compared with ECG of 24-Jun-2024 08:20, Nonspecific T wave abnormality, worse in Anterior leads QT has shortened Referred By: Danyell Helms Electronically Signed By: Deon Laura
--- NOTE | ~2024-07-12 | CT_ITS ---
CLINICAL HISTORY: SOB, possible PE CTA chest with 3-D postprocessing Comparison: 09/01/23 Findings: Study quality is adequate for the diagnosis of pulmonary embolism. No pulmonary embolism. Heart size within normal limits. RV/LV ratio is normal. Severe calcified coronary artery disease. No aortic dissection or aneurysm. Mild calcified atherosclerotic disease of the thoracic aorta. No lymphadenopathy. Smooth interlobular septal thickening with a mild amount of bilateral ground-glass opacity which is predominantly central. Compressive atelectasis. Mild biapical scarring with calcification. Increased subpleural reticulation. There is bronchial wall thickening. Mild paraseptal and centrilobular emphysema No pneumothorax. Small bilateral pleural effusions. No acute osseous or soft tissue abnormality. Moderate to severe height loss of T9, also present on the prior study. No acute pathology in the imaged portion of the upper abdomen. Impression: No pulmonary embolism. Mild pulmonary edema. This document has been electronically signed by: Anne Mancini MD on 07/12/2024 18:04:19
--- NOTE | ~2024-07-12 | XR_ITS ---
EXAMINATION: XR CHEST CLINICAL INFORMATION: cough, SOB COMPARISON: February 15, 2024 TECHNIQUE: Frontal view of the chest was obtained. FINDINGS: Meniscal shaped opacity mid to lower hemithoraces bilaterally with a lobulated morphology pattern. Prominence of the interstitial markings. Patchy opacities more confluent in the right lung. No pneumothorax. Cardiomediastinal silhouette size is normal. Line calcified pleural plaques, bilaterally. Calcified plaque aortic arch. Multilevel thoracic and upper lumbar spondylosis. S-shaped curvature of the thoracolumbar spine. XR/XR chest 1V IMPRESSION: Concerning pulmonary edema and bilateral pleural effusions with questionable loculation. Superimposed acute inflammatory versus infectious processes cannot be excluded. Recommend follow-up until resolution. Electronically signed by: Kobi Lorenzana MD 07/12/2024 11:57 AM [facility]
--- NOTE | 2024-07-12 11:15 | MHC.EDTECH ---
EKG done @11:13am , not crossing over in system.
--- NOTE | 2024-07-12 11:22 | ED_ITS ---
HPI - General Adult General Chief complaint: Dyspnea Stated complaint: dyspnea, 69% RA Time Seen by Provider: 07/12/24 11:07 Source: patient, family (patient's ) and EMS Mode of arrival: EMS Limitations: no limitations History of Present Illness ED Provider: Danyell Helms PA-C HPI narrative: Patient is a 78 year old assigned female at with a history of COPD on 2 liters at baseline, DM, and left tibial plateau fracture on 06/24/2024 presenting to the emergency department today with a cough and hypoxia and increased work of breathing. Patient states that she was at [facility] for her left tibial plateau fracture for 2 weeks and today her visiting nurse noted her to have increased work of breathing and her pulse oximeter was at 69%. Patient states that she isn't feeling short of breath but does feel like she is trying to breathe more . Patient states that she has also had a cough. Patient denies any dizziness, lightheadedness, abdominal pain, nausea, vomiting, fever, chills, blurry vision, double vision, loss of vision, chest pain, difficulty breathing, shortness of breath, back pain, night sweats, pain with urination, increased urinary frequency, increased urinary urgency, blood in her urine or stool, syncope or a near syncopal episode, recent trauma or falls, bowel incontinence, bladder incontinence, or any other complaints at this time. Relieving factors: none Exacerbating factors: none Associated symptoms: cough Treatments prior to arrival: none Related Data Home Medications ?Medication ?Instructions ?Recorded ?Confirmed ascorbic acid (vitamin C) 500 mg 500 mg PO DAILY 05/26/20 06/24/24 capsule [id number] ac 400 1 tab PO DAILY 05/26/20 06/24/24 mcg-calcium carb 500 mg-vit K1 20 mcg tablet (Women's 50 Plus Multivitamin) cholecalciferol (vitamin D3) 10 25 mcg PO DAILY 07/11/22 06/24/24 mcg (400 unit) tablet (Vitamin D3) biotin 2,500 mcg chewable tablet 1,000 mcg PO DAILY 01/14/24 06/24/24 insulin aspart U-100 100 unit/mL subcut 02/22/24 02/28/24 (3 mL) subcutaneous pen (Novolog FlexPen U-100 Insulin aspart) pen needle, diabetic 31 gauge x #1,200 ea 05/22/2416 (BD Ultra-Fine Mini Pen Needle) acetaminophen 325 mg capsule 650 mg PO Q6H PRN 07/10/24 loperamide 2 mg tablet 2 mg PO Q6H PRN 07/10/24 lutein 20 mg capsule 20 mg PO DAILY 07/10/24 pantoprazole 40 mg tablet,delayed 40 mg PO DAILY 07/10/24 release aspirin 81 mg tablet,delayed 81 mg PO BID 07/12/24 release diltiazem HCl 30 mg tablet 30 mg PO TID 07/12/24 magnesium oxide 400 mg (241.3 mg 400 mg PO BID 07/12/24 magnesium) tablet Previous Rx's ?Medication ?Instructions ?Recorded lancets 33 gauge #200 ea 03/18/24 FreeStyle Test (blood sugar #200 ea 03/20/24 diagnostic) blood sugar diagnostic #200 ea 03/20/24 FreeStyle Lancets 28 gauge #100 ea 03/26/24 (lancets) FreeStyle Silvina 3 [place] #1 ea 03/26/24 (blood-glucose meter,continuous) FreeStyle Silvina 3 Sensor #6 ea 03/26/24 (blood-glucose sensor) FreeStyle Lite Meter #1 ea 03/26/24 (blood-glucose meter) FreeStyle Lite Strips (blood sugar #100 ea 03/26/24 diagnostic) pen needle, diabetic 33 gauge x #100 ea 05/22/24 (Comfort EZ Pen [place]) Lantus Solostar U-100 Insulin 100 8 unit (0.08 mL) subcut QPM #15 mL 06/12/24 unit/mL (3 mL) subcutaneous pen (insulin glargine) metoprolol tartrate 25 mg tablet 25 mg PO BID 30 days #60 tabs 07/10/24 Allergies Allergy/AdvReac Type Severity Reaction Status Date / Time sulfa Allergy Unknown diarrhea Verified 07/12/24 10:58 midazolam [From Versed] AdvReac Severe bradycardia Verified 07/12/24 10:58 Review of Systems 2 Constitutional: Constitutional: Reports no additional constitutional complaints, Denies chills, Denies fever(s) and Denies night sweats Eyes: Eyes: Reports no additional eye complaints, Denies blurry vision, Denies change in vision, Denies diplopia, Denies eye discharge, Denies loss of vision and Denies eye pain ENT: Denies dizziness Cardiovascular: Cardiovascular: Reports no additional cardiovascular complaints, Denies chest pain, Denies lightheadedness, Denies Loss of Consciousness and Denies dyspnea Respiratory: Respiratory: Reports no additional respiratory complaints, Reports cough and Denies dyspnea Comments: increased work of breathing Gastrointestinal: Gastrointestinal: Reports no additional gastrointestinal complaints, Denies abdominal pain, Denies melena, Denies hematochezia, Denies change in bowel habits and Denies change in stool character Genitourinary: Genitourinary: Denies hematuria, Denies urinary frequency, Denies dysuria, Denies urinary incontinence, Denies urinary hesitancy and Denies urinary urgency Musculoskeletal: Musculoskeletal: Reports no additional musculoskeletal complaints, Denies numbness and Denies tingling Neurologic: Denies dizziness, Denies loss of vision, Denies numbness and Denies tingling Psychiatric: Psychiatric: Reports no additional psychiatric complaints Endocrine: Endocrine: Reports no additional endocrine complaints Hematologic/Lymphatic: Hematologic/Lymphatic: Reports no additional hematologic/lymphatic complaints Allergic/Immunologic: Allergic/Immunologic: Reports no additional allergic/immunologic complaints [facility] Past Medical History Attestation statement: The following information was validated with the patient. (patient's validated all information) Source: old records reviewed, obtained from family (patient's provided additional history and confirmed the history provided by the patient.) and nursing notes reviewed Medical History Abdominal wall bulge Closed intertrochanteric fracture of left hip Chronic hypotension Closed hip fracture Hypotension Hypotension Tachycardia Diabetes Sepsis Pneumonia Acute sinusitis Hypoxemia Pulmonary emphysema Pneumothorax Diabetes mellitus with microalbuminuria, without long-term current use of insulin Vaccination refused by patient Underweight Intermittent palpitations Diabetes mellitus with hyperglycemia, without long-term current use of insulin Hx of fracture of wrist H/O fracture of wrist Surgical History H/O wrist surgery History of femoral hernia repair Family History Family History Father Diabetes mellitus Mother Essential hypertension Sister Breast cancer Social History Social History Household Members: Spouse Housing: House Do you presently have visiting nurse or other home services: No Alcohol intake: never Comment: bed alarm is not working. put chair alarm on her Patient Tobacco Use Status: Never used Tobacco Smoked in Last 30 Days: No e-Cigarette/Vaping Use: Never Used Second Hand Smoke Exposure: Yes ( smoker) Use of substances other than those prescribed or required for medical reasons: No Advance Directives: Yes Advance Directives on File: Yes Advance Directives Date on File: 06/16/22 Do you have a plan to hurt others: No Plan service: No Current occupational status: retired Cognitive needs: No Hearing needs: No Vision needs: No Physical Exam ED Vital Signs: Vital Signs - 24 hr 07/12/24 10:50 07/12/24 10:55 07/12/24 10:57 Temperature 99.1 F 99.1 F Pulse Rate 90 90 Respiratory Rate 20 20 Blood Pressure 145/69 H 145/69 H Pulse Oximetry 100 100 100 Oxygen Delivery Method Non-Rebreather Mask Nasal Cannula Nasal Cannula Oxygen Flow Rate 15 4 07/12/24 11:41 07/12/24 11:42 07/12/24 16:56 Temperature 97.8 F 98.1 F Pulse Rate 85 86 100 Respiratory Rate 24 H 22 H 29 H Blood Pressure 142/78 H 142/66 H Pulse Oximetry 96 94 Oxygen Delivery Method Nasal Cannula Nasal Cannula Oxygen Flow Rate 2 4 BMI result Body Mass Index 18.4 Const General: cooperative, no acute distress, alert and awake Nutritional Appearance: well nourished Orientation/consciousness: patient oriented x3 Limitations: no limitations HENMT Head: Yes normal to inspection and Yes atraumatic Ears: hearing grossly normal bilaterally and external ears normal General nose exam: Normal external nose present, no nasal discharge noted and no epistaxis Face and sinus: Yes normal facial exam, No abrasion and No laceration Mouth: Normal oral and palatal mucosa present, no drooling and no muffled voice Eyes General: appearance normal, both eyes and all related structures Periorbital: periorbital findings normal Eyelids: Yes eyelids normal Conjunctivae: conjunctivae normal Pupils: Equal, round and reactive pupils present EOM: EOMs intact bilaterally Neck Neck: Yes normal visual inspection, Yes full ROM and Yes no lymphadenopathy Chest Chest palpation & inspection: normal inspection of the chest Resp Effort & Inspection: able to speak in complete sentences, labored and tachypneic Auscultation: diminished lung sounds bilateral in the lower lung bolanos Cardio Rate: tachycardic Rhythm: regular rhythm GI Inspection: Yes normal to inspection Neuro General: patient oriented x3, moves all extremities and CN's II-XI intact bilaterally Cranial nerves: Yes Equal, round and reactive pupils present Cognition (Neuro): normal cognition Extrem General: Yes normal to inspection, Yes full ROM and Yes capillary refill normal Psych Appearance: grossly normal Mental Status: mental status grossly normal Affect: normal affect Attitude: cooperative Thought process: Normal thought process present Thought content: Normal thought content present Insight: Good insight present (Psych) Medications Administered Discontinued Medications Generic Name Dose Route Start Last Admin Trade Name Freq PRN Reason Stop Dose Admin Ceftriaxone Sodium 1 gm 07/12/24 12:07 07/12/24 12:52 Ceftriaxone Sodium 1 Gm Vial IVPUSH 07/12/24 12:08 1 gm ONCE ONE Administration Albuterol Sulfate 5 mg/ 0 mg 07/12/24 11:33 07/12/24 11:40 Albuterol/Ipratropium 3 ml INHALE 07/12/24 11:34 1 each ONCE ONE Administration Iohexol 65 ml 07/12/24 16:40 07/12/24 16:40 Iohexol 350 Mg/Ml 100 Ml Infus..Btl IV 07/12/24 16:41 65 ml ONCE ONE Administration Medical Decision Making Medical Decision Making [facility] Narrative: Patient is a 78 year old assigned female at with a history of COPD on 2 liters at baseline, DM, and left tibial plateau fracture on 06/24/2024 presenting to the emergency department today with a cough, hypoxia, and increased work of breathing. Patient's physical exam was as noted in the physical exam portion of this note. Patient's blood work was unremarkable. Patient's RSV test was positive. Patient's initial EKG showed possible SVT at 150bpm. Repeat EKG showed sinus rhythm. Patient's chest x-ray showed bilateral pleural effusions with concerns of loculations. Given patient's physical exam, will treat for superimposed pneumonia on RSV. Ceftriaxone ordered. Given the patient's isolated lower leg injury and hypoxia - I was suspicious for pulmonary embolism. I spoke at [facility] with the patient about this and explained that I wanted to get a CTA of the lungs to definitively rule out a PE. The patient adamantly declined citing radiation risk. I discussed a VQ scan however, she also declined that. Once I spoke with the patient about the elevated ddimer, she agreed to CTA of the chest which was negative for any acute PE. Patient's clinical presentation is not consistent with sepsis (@1310). I spoke with the hospitalist team who agreed to admission. I explained my physical exam findings as well as all test results to the patient and the patient's . I answered all questions asked by the patient and the patient's . Patient and the patient's verbalized agreement and understanding with this treatment plan and admission. Differential Diagnosis Differential Diagnoses: The differential diagnosis associated with the presentation includes RSV Hypoxia Increased work of breathing Admission/Observation Consideration of admission/observation: Escalation of care including admission/observation considered Patient admitted as noted in the MDM Rationale portion of this note. Consult Healthcare Provider Management of the patient was discussed with: Hospitalist (agreed to admission as noted in the MDM Rationale portion of this note.) Lab Data [facility] Lab Attestation statement: I reviewed the patient's lab results. My interpretation of these results are in the MDM Rationale portion of this note. 07/12/24 11:40 07/12/24 11:40 Labs: Lab Results 07/12/24 07/12/24 07/12/24 Range/Units 11:40 11:47 12:42 WBC 6.4 (4.8-10.8) X10*3/uL RBC 3.84 L (4.20-5.50) X10*6/uL Hgb 10.6 L (12.0-16.0) g/dl Hct 36.1 L (37.0-47.0) % MCV 94.0 (80.0-98.0) fL MCH 27.6 (27.0-33.0) pg MCHC 29.4 L (31.0-35.0) g/dl RDW 18.5 H (11.0-16.0) % Plt Count 287 D (160-400) X10*3/uL MPV 9.1 L (9.4-12.3) fL Immature Gran % (Auto) 0.5 H (0.0-0.4) % Neut % (Auto) 83.3 H (45-73) % Lymph % (Auto) 6.2 L (20-40) % Carter % (Auto) 9.0 (2-11) % Eos % (Auto) 0.5 (0-4) % Baso % (Auto) 0.5 (0-2) % Lymph # (Auto) 0.4 L (1.2-4.9) X10*3/uL Carter # (Auto) 0.6 (0.1-1.2) X10*3/uL Eos # (Auto) 0.0 (0.0-0.4) X10*3/uL Baso # (Auto) 0.0 (0.0-0.2) X10*3/uL Abs Immat Gran (auto) 0.03 (0.00-0.03) X10*3/uL Absolute Neuts (auto) 5.3 (2.0-8.3) x10*3/uL Absolute Nucleated RBC 0.000 (0.0-0.012) X10*3/uL Nucleated RBC % (auto) 0.0 (0.0-0.2) /100WBC PT (10.9-12.4) SEC INR (0.9-1.1) APTT (26.0-36.8) SEC D-Dimer High Sensitivty NG/ML VBG pH 7.34 (7.32-7.43) VBG pCO2 78 mmHg VBG pO2 34 mmHg VBG HCO3 42 H (22-26) mmol/L VBG O2 Saturation 48.0 % VBG Base Excess 13.6 mmol/L Sodium 143 (135-145) mmol/L Potassium 4.4 (3.3-5.1) mmol/L Chloride 106 (96-108) mmol/L Carbon Dioxide 34 H (22-29) mmol/L Anion Gap 7 L (12-20) BUN 33 H (9-16) mg/dL Creatinine 0.72 (0.5-1.4) mg/dL Estim Creat Clear Calc 49.4 Estimated GFR > 60 Random Glucose 236 H (60-115) mg/dL Lactic Acid 1.4 (0.5-2.0) mmol/L Calcium 8.6 D (8.4-10.2) mg/dL Total Bilirubin 0.2 (0.0-1.0) mg/dL AST 26 (5-31) U/L ALT 48 H (0-31) U/L Alkaline Phosphatase 187 H (39-117) U/L Total Protein 7.1 (6.5-8.0) g/dL Albumin 2.8 L (3.5-5.0) g/dL Influenza Type A (PCR) NEGATIVE (Negative) Influenza Type B (PCR) NEGATIVE (Negative) RSV RNA Qual (PCR) POSITIVE A (Negative) SARS-CoV-2 RNA (RT-PCR) NEGATIVE (Negative) 07/12/24 Range/Units 14:25 WBC (4.8-10.8) X10*3/uL RBC (4.20-5.50) X10*6/uL Hgb (12.0-16.0) g/dl Hct (37.0-47.0) % MCV (80.0-98.0) fL MCH (27.0-33.0) pg MCHC (31.0-35.0) g/dl RDW (11.0-16.0) % Plt Count (160-400) X10*3/uL MPV (9.4-12.3) fL Immature Gran % (Auto) (0.0-0.4) % Neut % (Auto) (45-73) % Lymph % (Auto) (20-40) % Carter % (Auto) (2-11) % Eos % (Auto) (0-4) % Baso % (Auto) (0-2) % Lymph # (Auto) (1.2-4.9) X10*3/uL Carter # (Auto) (0.1-1.2) X10*3/uL Eos # (Auto) (0.0-0.4) X10*3/uL Baso # (Auto) (0.0-0.2) X10*3/uL Abs Immat Gran (auto) (0.00-0.03) X10*3/uL Absolute Neuts (auto) (2.0-8.3) x10*3/uL Absolute Nucleated RBC (0.0-0.012) X10*3/uL Nucleated RBC % (auto) (0.0-0.2) /100WBC PT 11.6 (10.9-12.4) SEC INR 1.0 (0.9-1.1) APTT 24.5 L (26.0-36.8) SEC D-Dimer High Sensitivty 752 NG/ML VBG pH (7.32-7.43) VBG pCO2 mmHg VBG pO2 mmHg VBG HCO3 (22-26) mmol/L VBG O2 Saturation % VBG Base Excess mmol/L Sodium (135-145) mmol/L Potassium (3.3-5.1) mmol/L Chloride (96-108) mmol/L Carbon Dioxide (22-29) mmol/L Anion Gap (12-20) BUN (9-16) mg/dL Creatinine (0.5-1.4) mg/dL Estim Creat Clear Calc Estimated GFR Random Glucose (60-115) mg/dL Lactic Acid (0.5-2.0) mmol/L Calcium (8.4-10.2) mg/dL Total Bilirubin (0.0-1.0) mg/dL AST (5-31) U/L ALT (0-31) U/L Alkaline Phosphatase (39-117) U/L Total Protein (6.5-8.0) g/dL Albumin (3.5-5.0) g/dL Influenza Type A (PCR) (Negative) Influenza Type B (PCR) (Negative) RSV RNA Qual (PCR) (Negative) SARS-CoV-2 RNA (RT-PCR) (Negative) Independent Interpretation I performed an independent interpretation of an: EKG, Plain X-Ray and CT Scan Interpretation: My interpretation is in agreement with the radiologist's impression of these imaging studies. L CLINICAL HISTORY: M25.562 - Pain in left knee 2 view left knee Comparison: CT/SR - CT KNEE LT WO IV CON - 06/24/24 06:05 EST CR - XR KNEE LT 2V - 06/24/24 04:27 EST Findings: Nondepressed medial tibial plateau fracture with fracture line near the base of the lateral tibial spine and extending obliquely to the medial cortex just of the metaphysis. Articular surface appears congruent. Decreased lipohemarthrosis. Similar osteopenia. No significant joint space narrowing of the medial, lateral patellofemoral compartments. Soft tissues intact. Impression: Stable appearance to nondepressed medial tibial plateau fracture. This document has been electronically signed by: David Maloney MD on 07/12/2024 08:36:15 Dictated By: David Maloney MD Signed By: Electronically signed by David Maloney MD 07/12/24 0836 EXAMINATION: XR CHEST CLINICAL INFORMATION: cough, SOB COMPARISON: February 15, 2024 TECHNIQUE: Frontal view of the chest was obtained. FINDINGS: Meniscal shaped opacity mid to lower hemithoraces bilaterally with a lobulated morphology pattern. Prominence of the interstitial markings. Patchy opacities more confluent in the right lung. No pneumothorax. Cardiomediastinal silhouette size is normal. Line calcified pleural plaques, bilaterally. Calcified plaque aortic arch. Multilevel thoracic and upper lumbar spondylosis. S-shaped curvature of the thoracolumbar spine. XR/XR chest 1V IMPRESSION: Concerning pulmonary edema and bilateral pleural effusions with questionable loculation. Superimposed acute inflammatory versus infectious processes cannot be excluded. Recommend follow-up until resolution. Electronically signed by: Kobi Lorenzana MD 07/12/2024 11:57 AM EST Dictated By: Kobi Pathak MD Signed By: Electronically signed by Kobi Duffy MD 07/12/24 1157 Report Number: [id number]: Total DLP = 165.00 mGy-cm CLINICAL HISTORY: SOB, possible PE CTA chest with 3-D postprocessing Comparison: 09/01/23 Findings: Study quality is adequate for the diagnosis of pulmonary embolism. No pulmonary embolism. Heart size within normal limits. RV/LV ratio is normal. Severe calcified coronary artery disease. No aortic dissection or aneurysm. Mild calcified atherosclerotic disease of the thoracic aorta. No lymphadenopathy. Smooth interlobular septal thickening with a mild amount of bilateral ground- glass opacity which is predominantly central. Compressive atelectasis. Mild biapical scarring with calcification. Increased subpleural reticulation. There is bronchial wall thickening. Mild paraseptal and centrilobular emphysema No pneumothorax. Small bilateral pleural effusions. No acute osseous or soft tissue abnormality. Moderate to severe height loss of T9, also present on the prior study. No acute pathology in the imaged portion of the upper abdomen. Impression: No pulmonary embolism. Mild pulmonary edema. This document has been electronically signed by: Anne Mancini MD on 07/12/2024 18:04:19 Dictated By: Anne Lomeli MD Signed By: Electronically signed by Anne Lomeli MD 07/12/24 1805 Vent. Rate: 98 BPM Atrial Rate: 98 BPM P-R Int: 132 ms QRS Dur: 74 ms QT Int: 286 ms P-R-T Axes: 65 38 56 degrees QTcB Int: 365 ms Normal sinus rhythm Possible Left atrial enlargement Nonspecific T wave abnormality When compared with ECG of 24-Jun-2024 08:20, Nonspecific T wave abnormality, worse in Anterior leads QT has shortened DD/ 1231 Radiology Impression Discussion of test interpretation with radiology: I have reviewed the radiologist's reading. Independent Historian Clinical information obtained from an independent historian. History obtained from or confirmed by: Spouse (patient's provided additional history and confirmed the history provided by the patient.) and EMS (EMS provided additional history and confirmed the history provided by the patient.) Critical Care Time Critical Care Time Critical Care Time: Yes Total Critical Care Time: 39 Attestation: I spent 39 minutes of Critical Care Time with this patient. This does not include time spent on separately reported billable procedures. Discharge Plan Discharge Clinical Impression: Hypoxia, Respiratory syncytial virus (RSV) Patient Disposition: Admitted As Inpatient Prescriptions: No Action (DME) lancets 33 gauge misc See Rx Instructions .ROUTE .MEDSUPPLY Qty: 200 4RF Rx Instructions: Check blood sugar four times daily (DME) blood sugar diagnostic Strip See Rx Instructions .ROUTE .MEDSUPPLY Qty: 200 5RF Rx Instructions: Check fasting blood sugar four times daily (DME) FreeStyle Test Strip See Rx Instructions .Route Qty: 200 3RF Rx Instructions: four times daily (DME) FreeStyle Lite Strips Strip See Rx Instructions .Route Qty: 100 3RF Rx Instructions: test 3 times daily (DME) blood-glucose meter [FreeStyle Lite Meter] Kit See Rx Instructions .Route Qty: 1 0RF Rx Instructions: to check blood glucose 3x daily (DME) lancets [FreeStyle Lancets] 28 gauge misc See Rx Instructions .Route Qty: 100 3RF Rx Instructions: three times daily (DME) FreeStyle Silvina 3 [place] Misc See Rx Instructions .Route Qty: 1 0RF Rx Instructions: As directed (DME) FreeStyle Silvina 3 Sensor Device See Rx Instructions .Route Qty: 6 3RF Rx Instructions: As directed metoprolol tartrate 25 mg tablet 25 mg PO BID 30 Days Qty: 60 5RF cholecalciferol (vitamin D3) [Vitamin D3] 10 mcg (400 unit) Tablet 25 mcg PO DAILY aspirin 81 mg tablet,delayed release (DR/EC) 81 mg PO BID magnesium oxide 400 mg (241.3 mg magnesium) tablet 400 mg PO BID diltiazem HCl 30 mg tablet 30 mg PO TID biotin 2,500 mcg Tablet,Chewable 1,000 mcg PO DAILY Women's 50 Plus Multivitamin 400 mcg-500 mg calcium-20 mcg tablet 1 tab PO DAILY ascorbic acid (vitamin C) 500 mg capsule 500 mg PO DAILY insulin aspart U-100 [Novolog FlexPen U-100 Insulin] 100 unit/mL (3 mL) insulin pen subcut (DME) pen needle, diabetic [BD Ultra-Fine Mini Pen Needle] 31 gauge x 3/16 needle See Rx Instructions .ROUTE DAILY Qty: 1200 Rx Instructions: As directed (DME) pen needle, diabetic [Comfort EZ Pen [place]] 33 gauge x 5/32 needle See Rx Instructions .Route Qty: 100 3RF Rx Instructions: once daily insulin glargine [Lantus Solostar U-100 Insulin] 100 unit/mL (3 mL) insulin pen 8 unit subcut QPM Qty: 15 3RF loperamide 2 mg tablet 2 mg PO Q6H PRN pantoprazole 40 mg tablet,delayed release (DR/EC) 40 mg PO DAILY lutein 20 mg capsule 20 mg PO DAILY Rx Instructions: give with meal/snack acetaminophen 325 mg capsule 650 mg PO Q6H PRN Print Language: Turkish
[2024-07-12] MEDS: Albuterol Sulfate 5 MG, Albuterol/Iprat 2.5/0.5MG 3 ML 3 ML INHALE (11:40)
[2024-07-12 11:51] LABS: Venous Blood Gas Refer to POC result
[2024-07-12 11:52] LABS: VBG Base Excess 13.6 mmol/L; VBG HCO3 42 mmol/L (22-26); VBG pCO2 78 mmHg; VBG pH 7.34 (7.32-7.43); VBG pO2 34 mmHg
[2024-07-12 11:53] LABS: MANUAL DIFF FLAG NO
[2024-07-12 11:55] LABS: Basophils Percent Auto 0.5 % (0-2); Eosinophils Percent Auto 0.5 % (0-4); Hematocrit 36.1 % (37.0-47.0); Hemoglobin 10.6 g/dl (12.0-16.0); Imm Gran Abs Auto 0.03 X10*3/uL (0.00-0.03); Imm Gran Pct Auto 0.5 % (0.0-0.4); Lymphocytes Absolute Auto 0.4 X10*3/uL (1.2-4.9); Lymphocytes Percent Auto 6.2 % (20-40); Mean Corpuscular HGB Conc 29.4 g/dl (31.0-35.0); Mean Corpuscular Hemoglobin 27.6 pg (27.0-33.0); Mean Platelet Volume 9.1 fL (9.4-12.3); Monocytes Absolute Auto 0.6 X10*3/uL (0.1-1.2); Neutrophils Absolute Auto 5.3 x10*3/uL (2.0-8.3); Neutrophils Percent Auto 83.3 % (45-73); Platelet Count 287 X10*3/uL (160-400); Red Blood Count 3.84 X10*6/uL (4.20-5.50); Red Cell Distribution Width 18.5 % (11.0-16.0); White Blood Count 6.4 X10*3/uL (4.8-10.8)
--- OUTSIDE RECORDS SUMMARY | 2024-07-12 12:10 | XMS_ITS | Encounter Summary ---
[facility] Organization [facility] Address [address] [place] [address] Care Team Providers Care Lumber Salvager Name Role Phone Dmitry Jason MD Primary Care Provider [phone] Encounter Details Date Type Department Care Team (Late st Contact Info) Description 07/08/2024 Lab Requisition [facility] - Main Lab [address] [place] [address] Viola Tubbs MD [address] [place] [phone] Encounter for other general examination Social History [...] CBC auto differential (07/08/2024 6:27 AM EST) [facility] Signature WBC 8.1 4.8 - 10.8 K/mcL LAB HEMETOLOGY METHOD 07/08/2024 10:[address] [facility] LAB RBC 3.50(L) 3.80 - 4.80 M/mcL LAB HEMETOLOGY METHOD 07/08/2024 10:07 AM [facility] LAB Hemoglobin 9.5(L) 11.5 - 16.0 g/dL LAB HEMETOLOGY METHOD 07/08/2024 10:07 AM [facility] LAB Hematocrit 32.5(L) 35.0 - 47.0 % LAB HEMETOLOGY METHOD 07/08/2024 10:07 AM [facility] LAB MCV 93.4 79.0 - 98.0 FL LAB HEMETOLOGY METHOD 07/08/2024 10:07 AM [facility] LAB MCH 27.3 27.0 - 32.0 pcg LAB HEMETOLOGY METHOD 07/08/2024 10:07 AM [facility] LAB MCHC 29.2(L) 32.0 - 37.0 g/dL LAB HEMETOLOGY METHOD 07/08/2024 10:07 AM [facility] LAB RDW 18.5(H) 11.0 - 15.0 % LAB HEMETOLOGY METHOD 07/08/2024 10:07 AM [facility] LAB Platelets 353 130 - 400 K/mcL LAB HEMETOLOGY METHOD 07/08/2024 10:07 AM [facility] LAB MPV 9.9 7.0 - 11.0 FL LAB HEMETOLOGY METHOD 07/08/2024 10:07 AM [facility] LAB NRBC 0.0 <1.0 % LAB HEMETOLOGY METHOD 07/08/2024 10:07 AM [facility] LAB NRBC Absolute 0.00 <0.10 K/mcL LAB HEMETOLOGY METHOD 07/08/2024 10:07 AM [facility] LAB Neutrophils Relative 77.8 % LAB HEMETOLOGY METHOD 07/08/2024 10:07 AM [facility] LAB Lymphocytes Relative 8.4 % LAB HEMETOLOGY METHOD 07/08/2024 10:07 AM [facility] LAB Monocytes Relative 11.5 % LAB HEMETOLOGY METHOD 07/08/2024 10:07 AM [facility] LAB Eosinophils Relative 1.5 % LAB HEMETOLOGY METHOD 07/08/2024 10:07 AM [facility] LAB Basophils Relative 0.4 % LAB HEMETOLOGY METHOD 07/08/2024 10:07 AM [facility] LAB Immature Granulocytes Relative 0.4 % LAB HEMETOLOGY METHOD 07/08/2024 10:07 AM [facility] LAB Neutrophils Absolute 6.29 1.50 - 7.00 K/mcL LAB HEMETOLOGY METHOD 07/08/2024 10:07 AM [facility] LAB Lymphocytes Absolute 0.68(L) 1.00 - 5.00 K/mcL LAB HEMETOLOGY METHOD 07/08/2024 10:07 AM [facility] LAB Monocytes Absolute 0.93 0.20 - 1.00 K/mcL LAB HEMETOLOGY METHOD 07/08/2024 10:07 AM [facility] LAB Eosinophils Absolute 0.12 0.00 - 0.50 K/mcL LAB HEMETOLOGY METHOD 07/08/2024 10:07 AM [facility] LAB Basophils Absolute 0.03 0.00 - 0.20 K/mcL LAB HEMETOLOGY METHOD 07/08/2024 10:07 AM [facility] LAB Immature Granulocytes Absolute 0.03 0.00 - 0.03 K/mcL LAB HEMETOLOGY METHOD 07/08/2024 10:07 AM [facility] LAB Blood Venous blood specimen / Unknown Venipuncture / Unknown 07/08/2024 6:27 AM EST 07/08/2024 9:00 AM EST Viola Tubbs MD LAB BLOOD ORDERABLES [facility] LAB [address] [place] [address], [place] [phone] * Magnesium (07/08/2024 6:27 AM EST) [facility] Magnesium 2.1 1.9 - 2.6 mg/dL LAB CHEMISTRY METHOD 07/08/2024 11:01 AM EST [facility] LAB Blood Venous blood specimen / Unknown Venipuncture / Unknown 07/08/2024 6:27 AM EST 07/08/2024 9:00 AM EST Viola Tubbs MD LAB BLOOD ORDERABLES [facility] [address] [place] [address], [place] [phone] * (ABNORMAL) Basic metabolic panel (07/08/2024 6:27 AM EST) [facility] Sodium 138 133 - 145 mmol/L LAB CHEMISTRY METHOD 07/08/2024 11:08 AM [facility] LAB Potassium 4.4 3.5 - 5.5 mmol/L LAB CHEMISTRY METHOD 07/08/2024 11:08 AM [facility] LAB Chloride 98 96 - 110 mmol/L LAB CHEMISTRY METHOD 07/08/2024 11:08 AM [facility] LAB CO2 37(H) 21 - 32 mmol/L LAB CHEMISTRY METHOD 07/08/2024 11:08 AM [facility] LAB Anion Gap 3 3 - 11 LAB CHEMISTRY METHOD 07/08/2024 11:08 AM [facility] LAB Glucose 148(H) 70 - 100 mg/dL LAB CHEMISTRY METHOD 07/08/2024 11:08 AM [facility] LAB BUN 26(H) 5 - 25 mg/dL LAB CHEMISTRY METHOD 07/08/2024 11:08 AM [facility] LAB Creatinine 0.59 0.50 - 1.10 mg/dL LAB CHEMISTRY METHOD 07/08/2024 11:08 AM [facility] LAB eGFR 94 >=60 mL/min/1. 73m2 LAB CHEMISTRY METHOD 07/08/2024 11:08 AM [facility] LAB Comment:Calculation based on the??Chronic Kidney Disease Epidemiology Collaboration (CKD-EPI) equation refit??without adjustment for race. BUN/Creatinine Ratio 44.1 LAB CHEMISTRY METHOD 07/08/2024 11:08 AM [facility] LAB Calcium 8.5 8.5 - 10.5 mg/dL LAB CHEMISTRY METHOD 07/08/2024 11:08 AM [facility] LAB Blood Venous blood specimen / Unknown Venipuncture / Unknown 07/08/2024 6:27 AM EST 07/08/2024 9:00 AM EST Viola Tubbs MD LAB BLOOD ORDERABLES [facility] [address] [place] [address], documented in this encounter Visit Diagnoses Diagnosis Encounter for other general examination documented in this encounter Care Teams Lumber Salvager Relationship Specialty Start Date End Date Dmitry Jason MD [address] [place] [phone] PCP - General Internal Medicine 07/02/24 documented as of this encounter
--- OUTSIDE RECORDS SUMMARY | 2024-07-12 12:10 | XMS_ITS | Encounter Summary ---
[facility] Organization [facility] Address [address] [place] [address] Care Team Providers Care Food Service Team Member Name Role Phone Dmitry Jason MD Primary Care Provider [phone] Encounter Details Date Type Department Care Team (Late st Contact Info) Description 06/29/2024 Lab Requisition [facility] - Main Lab [address] [place] [address] Viola Tubbs MD [address] [place] [phone] Encounter for other general examination Social History [...] mmol/L LAB CHEMISTRY METHOD 06/29/2024 12:07 PM [facility] LAB Potassium 5.1 3.5 - 5.5 mmol/L LAB CHEMISTRY METHOD 06/29/2024 12:07 PM [facility] LAB Chloride 102 96 - 110 mmol/L LAB CHEMISTRY METHOD 06/29/2024 12:07 PM [facility] LAB CO2 40(H) 21 - 32 mmol/L LAB CHEMISTRY METHOD 06/29/2024 12:07 PM [facility] LAB Anion Gap -2(L) 3 - 11 LAB CHEMISTRY METHOD 06/29/2024 12:07 PM [facility] LAB Glucose 68(L) 70 - 100 mg/dL LAB CHEMISTRY METHOD 06/29/2024 12:07 PM [facility] LAB BUN 59(H) 5 - 25 mg/dL LAB CHEMISTRY METHOD 06/29/2024 12:07 PM [facility] LAB Creatinine 0.83 0.50 - 1.10 mg/dL LAB CHEMISTRY METHOD 06/29/2024 12:07 PM [facility] LAB eGFR 73 >=60 mL/min/1. 73m2 LAB CHEMISTRY METHOD 06/29/2024 12:07 PM [facility] LAB Comment:Calculation based on the??Chronic Kidney Disease Epidemiology Collaboration (CKD-EPI) equation refit??without adjustment for race. BUN/Creatinine Ratio 71.1 LAB CHEMISTRY METHOD 06/29/2024 12:07 PM [facility] LAB Calcium 8.8 8.5 - 10.5 mg/dL LAB CHEMISTRY METHOD 06/29/2024 12:07 PM [facility] LAB Blood Venous blood specimen / Unknown Venipuncture / Unknown 06/29/2024 5:43 AM EST 06/29/2024 9:53 AM EST Viola Tubbs MD LAB BLOOD ORDERABLES [facility] LAB [address] [place] [address], documented in this encounter Visit Diagnoses Diagnosis Encounter for other general examination documented in this encounter Care Teams Food Service Team Member Relationship Specialty Start Date End Date Dmitry Jason MD [address] [place] [phone] PCP - General Internal Medicine 07/02/24 documented as of this encounter
--- OUTSIDE RECORDS SUMMARY | 2024-07-12 12:10 | XMS_ITS | Encounter Summary ---
[facility] Organization [facility] Address [address] [place] [address] Care Team Providers Care Crimper Assembler Name Role Phone Dmitry Jason MD Primary Care Provider [phone] Encounter Details Date Type Department Care Team (Late st Contact Info) Description 06/25/2024 Lab Requisition [facility] - Main Lab [address] [place] [address] Viola Tubbs MD [address] [place] [phone] Encounter for other general examination Social History [...] CBC auto differential (06/25/2024 5:55 AM EST) [facility] Signature WBC 10.5 4.8 - 10.8 K/[facility] LAB HEMETOLOGY METHOD 06/25/2024 10:51 AM EST [facility] LAB RBC 4.00 3.80 - 4.80 M/mcL LAB HEMETOLOGY METHOD 06/25/2024 10:51 AM [facility] LAB Hemoglobin 10.7(L) 11.5 - 16.0 g/dL LAB HEMETOLOGY METHOD 06/25/2024 10:51 AM [facility] LAB Hematocrit 36.8 35.0 - 47.0 % LAB HEMETOLOGY METHOD 06/25/2024 10:51 AM [facility] LAB MCV 93.2 79.0 - 98.0 FL LAB HEMETOLOGY METHOD 06/25/2024 10:51 AM [facility] LAB MCH 27.1 27.0 - 32.0 pcg LAB HEMETOLOGY METHOD 06/25/2024 10:51 AM [facility] LAB MCHC 29.1(L) 32.0 - 37.0 g/dL LAB HEMETOLOGY METHOD 06/25/2024 10:51 AM [facility] LAB RDW 19.3(H) 11.0 - 15.0 % LAB HEMETOLOGY METHOD 06/25/2024 10:51 AM [facility] LAB Platelets 174 130 - 400 K/mcL LAB HEMETOLOGY METHOD 06/25/2024 10:51 AM [facility] LAB MPV 10.2 7.0 - 11.0 FL LAB HEMETOLOGY METHOD 06/25/2024 10:51 AM [facility] LAB NRBC 0.0 <1.0 % LAB HEMETOLOGY METHOD 06/25/2024 10:51 AM [facility] LAB NRBC Absolute 0.00 <0.10 K/mcL LAB HEMETOLOGY METHOD 06/25/2024 10:51 AM [facility] LAB Neutrophils Relative 77.4 % LAB HEMETOLOGY METHOD 06/25/2024 10:51 AM [facility] LAB Lymphocytes Relative 9.0 % LAB HEMETOLOGY METHOD 06/25/2024 10:51 AM EST [facility] LAB Monocytes Relative 11.0 % LAB HEMETOLOGY METHOD 06/25/2024 10:51 AM [facility] LAB Eosinophils Relative 1.5 % LAB HEMETOLOGY METHOD 06/25/2024 10:51 AM [facility] LAB Basophils Relative 0.4 % LAB HEMETOLOGY METHOD 06/25/2024 10:51 AM [facility] LAB Immature Granulocytes Relative 0.7 % LAB HEMETOLOGY METHOD 06/25/2024 10:51 AM [facility] LAB Neutrophils Absolute 8.14(H) 1.50 - 7.00 K/mcL LAB HEMETOLOGY METHOD 06/25/2024 10:51 AM [facility] LAB Lymphocytes Absolute 0.94(L) 1.00 - 5.00 K/mcL LAB HEMETOLOGY METHOD 06/25/2024 10:51 AM [facility] LAB Monocytes Absolute 1.15(H) 0.20 - 1.00 K/mcL LAB HEMETOLOGY METHOD 06/25/2024 10:51 AM [facility] LAB Eosinophils Absolute 0.16 0.00 - 0.50 K/mcL LAB HEMETOLOGY METHOD 06/25/2024 10:51 AM [facility] LAB Basophils Absolute 0.04 0.00 - 0.20 K/mcL LAB HEMETOLOGY METHOD 06/25/2024 10:51 AM [facility] LAB Immature Granulocytes Absolute 0.07(H) 0.00 - 0.03 K/mcL LAB HEMETOLOGY METHOD 06/25/2024 10:51 AM [facility] LAB Blood Venous blood specimen / Unknown Venipuncture / Unknown 06/25/2024 5:55 AM EST 06/25/2024 10:03 AM EST Viola Tubbs MD LAB BLOOD ORDERABLES [facility] LAB [address] [place] [address], * (ABNORMAL) Magnesium (06/25/2024 5:55 AM EST) [facility] Magnesium 1.7(L) 1.9 - 2.6 mg/dL LAB CHEMISTRY METHOD 06/25/2024 11:20 AM EST [facility] LAB Blood Venous blood specimen / Unknown Venipuncture / Unknown 06/25/2024 5:55 AM EST 06/25/2024 10:03 AM EST Viola Tubbs MD LAB BLOOD ORDERABLES [facility] [address] [place] [address], * (ABNORMAL) Comprehensive metabolic panel (06/25/2024 5:55 AM EST) [facility] Sodium 141 133 - 145 mmol/L LAB CHEMISTRY METHOD 06/25/2024 11:40 AM [facility] LAB Potassium 4.3 3.5 - 5.5 mmol/L LAB CHEMISTRY METHOD 06/25/2024 11:40 AM [facility] LAB Chloride 100 96 - 110 mmol/L LAB CHEMISTRY METHOD 06/25/2024 11:40 AM [facility] LAB CO2 38(H) 21 - 32 mmol/L LAB CHEMISTRY METHOD 06/25/2024 11:40 AM [facility] LAB Anion Gap 3 3 - 11 LAB CHEMISTRY METHOD 06/25/2024 11:40 AM [facility] LAB Glucose 135(H) 70 - 100 mg/dL LAB CHEMISTRY METHOD 06/25/2024 11:40 AM [facility] LAB BUN 31(H) 5 - 25 mg/dL LAB CHEMISTRY METHOD 06/25/2024 11:40 AM [facility] LAB Creatinine 0.72 0.50 - 1.10 mg/dL LAB CHEMISTRY METHOD 06/25/2024 11:40 AM [facility] LAB eGFR 87 >=60 mL/min/1. 73m2 LAB CHEMISTRY METHOD 06/25/2024 11:40 AM [facility] LAB Comment:Calculation based on the??Chronic Kidney Disease Epidemiology Collaboration (CKD-EPI) equation refit??without adjustment for race. BUN/Creatinine Ratio 43.1 LAB CHEMISTRY METHOD 06/25/2024 11:40 AM [facility] LAB Calcium 8.9 8.5 - 10.5 mg/dL LAB CHEMISTRY METHOD 06/25/2024 11:40 AM [facility] LAB AST (SGOT) 20 10 - 42 unit/L LAB CHEMISTRY METHOD 06/25/2024 11:40 AM [facility] LAB ALT (SGPT) 33 10 - 60 unit/L LAB CHEMISTRY METHOD 06/25/2024 11:40 AM [facility] LAB Alkaline Phosphatase 88 42 - 121 unit/L LAB CHEMISTRY METHOD 06/25/2024 11:40 AM [facility] LAB Total Protein 6.9 6.0 - 8.0 g/dL LAB CHEMISTRY METHOD 06/25/2024 11:40 AM [facility] LAB Albumin 2.7(L) 3.2 - 5.0 g/dL LAB CHEMISTRY METHOD 06/25/2024 11:40 AM [facility] LAB Total Bilirubin 0.4 0.0 - 1.4 mg/dL LAB CHEMISTRY METHOD 06/25/2024 11:40 AM [facility] LAB Blood Venous blood specimen / Unknown Venipuncture / Unknown 06/25/2024 5:55 AM EST 06/25/2024 10:03 AM EST Viola Tubbs MD LAB BLOOD ORDERABLES [facility] [address] [place] [address], documented in this encounter Visit Diagnoses Diagnosis Encounter for other general examination documented in this encounter Care Teams Crimper Assembler Relationship Specialty Start Date End Date Dmitry Jason MD [address] [place] [phone] PCP - General Internal Medicine 07/02/24 documented as of this encounter
--- OUTSIDE RECORDS SUMMARY | 2024-07-12 12:10 | XMS_ITS | Encounter Summary ---
[facility] Organization [facility] Address [address] [place] [address] Care Team Providers Care Supervisor [employer] Name Role Phone Dmitry Jason MD Primary Care Provider [phone] Encounter Details Date Type Department Care Team (Late st Contact Info) Description 07/02/2024 Lab Requisition [facility] - Main Lab [address] [place] [address] Viola Tubbs MD [address] [place] [phone] Encounter for other general examination Social History [...] mmol/L LAB CHEMISTRY METHOD 07/02/2024 12:14 PM [facility] LAB Potassium 4.9 3.5 - 5.5 mmol/L LAB CHEMISTRY METHOD 07/02/2024 12:14 PM EST [facility] LAB Chloride 97 96 - 110 mmol/L LAB CHEMISTRY METHOD 07/02/2024 12:14 PM [facility] LAB CO2 45(HH) 21 - 32 mmol/L LAB CHEMISTRY METHOD 07/02/2024 12:14 PM [facility] LAB Anion Gap -2(L) 3 - 11 LAB CHEMISTRY METHOD 07/02/2024 12:14 PM [facility] LAB Glucose 146(H) 70 - 100 mg/dL LAB CHEMISTRY METHOD 07/02/2024 12:14 PM [facility] LAB BUN 31(H) 5 - 25 mg/dL LAB CHEMISTRY METHOD 07/02/2024 12:14 PM [facility] LAB Creatinine 0.63 0.50 - 1.10 mg/dL LAB CHEMISTRY METHOD 07/02/2024 12:14 PM [facility] LAB eGFR 92 >=60 mL/min/1. 73m2 LAB CHEMISTRY METHOD 07/02/2024 12:14 PM [facility] LAB Comment:Calculation based on the??Chronic Kidney Disease Epidemiology Collaboration (CKD-EPI) equation refit??without adjustment for race. BUN/Creatinine Ratio 49.2 LAB CHEMISTRY METHOD 07/02/2024 12:14 PM [facility] LAB Calcium 9.2 8.5 - 10.5 mg/dL LAB CHEMISTRY METHOD 07/02/2024 12:14 PM [facility] LAB Blood Venous blood specimen / Unknown Venipuncture / Unknown 07/02/2024 6:07 AM EST 07/02/2024 9:39 AM EST Viola Tubbs MD LAB BLOOD ORDERABLES [facility] [address] [place] [address], documented in this encounter Visit Diagnoses Diagnosis Encounter for other general examination documented in this encounter Care Teams Supervisor [employer] Relationship Specialty Start Date End Date Dmitry Jason MD [address] [place] [phone] PCP - General Internal Medicine 07/02/24 documented as of this encounter
--- OUTSIDE RECORDS SUMMARY | 2024-07-12 12:11 | XMS_ITS | Encounter Summary ---
[facility] Organization [facility] Address [address] [place] [address] Care Team Providers Care Patient Relations Director Name Role Phone Dmitry Jason MD Primary Care Provider [phone] Encounter Details Date Type Department Care Team (Late st Contact Info) Description 07/05/2024 Lab Requisition [facility] - Main Lab [address] [facility] [place] [address] Viola Tubbs MD [address] [place] [address] Encounter for other general examination Social History [...] examination documented in this encounter Care Teams Patient Relations Director Relationship Specialty Start Date End Date Dmitry Jason MD [address] [place] [address] [phone] PCP - General Internal Medicine 07/02/24 documented as of this encounter
--- OUTSIDE RECORDS SUMMARY | 2024-07-12 12:11 | XMS_ITS | Clinical Summary ---
Author Organization [address] Address [address] [place] [address] Phone Care Team Providers Care Thermodynamics Professor Name Role Phone Dmitry Jason MD Primary Care Provider [phone] Encounters Date Type Department Care Team Description 07/08/2024 Lab Requisition [facility] [address] [place] [address] Viola Tubbs MD Encounter for other general examination 07/05/2024 Lab Requisition [facility] [address] [place] [address] Viola Tubbs MD Encounter for other general examination 07/04/2024 Lab Requisition [facility] [address] [place] [address] Viola Tubbs MD Encounter for other general examination 07/03/2024 Lab Requisition [facility] [address] [place] [address] Viola Tubbs MD Encounter for other general examination 07/02/2024 Lab Requisition [facility] [address] [place] [address] Viola Tubbs MD Encounter for other general examination 06/29/2024 Lab Requisition [facility] [address] [place] [address] Viola Tubbs MD Encounter for other general examination 06/28/2024 Lab Requisition [facility] [address] [place] [address] Viola Tubbs MD Encounter for other general examination 06/25/2024 Lab Requisition [facility] Lab [address] [place] [address] Viola Tubbs MD Encounter for [...] AM EST Encounter for other general examination [facility] DEXA AXIAL SKELETON Routine 10/26/2022 11:00 AM EDT Age-related osteoporosis without current pathological fracture [facility] SCREENING DIGITAL Routine 10/25/2022 4:04 PM EDT Encounter for screening mammogram for malignant neoplasm of breast from Last 3 Months or Most Recently Relevant to Health Maintenance Results * (ABNORMAL) CBC auto differential (07/08/2024 6:27 AM EST) Only the most recent of3 resultswithin the time period is included. WBC 8.1 4.8 - 10.8 K/mcL LAB HEMETOLOGY METHOD 07/08/2024 10:07 AM [facility] RBC 3.50(L) 3.80 - 4.80 M/mcL LAB HEMETOLOGY METHOD 07/08/2024 10:07 AM [facility] Hemoglobin 9.5(L) 11.5 - 16.0 g/dL LAB HEMETOLOGY METHOD 07/08/2024 10:07 AM [facility] Hematocrit 32.5(L) 35.0 - 47.0 % LAB HEMETOLOGY METHOD 07/08/2024 10:07 AM [facility] MCV 93.4 79.0 - 98.0 FL LAB HEMETOLOGY METHOD 07/08/2024 10:07 AM [facility] MCH 27.3 27.0 - 32.0 pcg LAB HEMETOLOGY METHOD 07/08/2024 10:07 AM [facility] MCHC 29.2(L) 32.0 - 37.0 g/dL LAB HEMETOLOGY METHOD 07/08/2024 10:07 AM [facility] RDW 18.5(H) 11.0 - 15.0 % LAB HEMETOLOGY METHOD 07/08/2024 10:07 AM [facility] Platelets 353 130 - 400 K/mcL LAB HEMETOLOGY METHOD 07/08/2024 10:07 AM [facility] MPV 9.9 7.0 - 11.0 FL LAB HEMETOLOGY METHOD 07/08/2024 10:07 AM [facility] NRBC 0.0 <1.0 % LAB HEMETOLOGY METHOD 07/08/2024 10:07 AM [facility] NRBC Absolute 0.00 <0.10 K/mcL LAB HEMETOLOGY METHOD 07/08/2024 10:07 AM [facility] Neutrophils Relative 77.8 % LAB HEMETOLOGY METHOD 07/08/2024 10:07 AM [facility] Lymphocytes Relative 8.4 % LAB HEMETOLOGY METHOD 07/08/2024 10:07 AM [facility] Monocytes Relative 11.5 % LAB HEMETOLOGY METHOD 07/08/2024 10:07 AM [facility] Eosinophils Relative 1.5 % LAB HEMETOLOGY METHOD 07/08/2024 10:07 AM [facility] Basophils Relative 0.4 % LAB HEMETOLOGY METHOD 07/08/2024 10:07 AM [facility] Immature Granulocytes Relative 0.4 % LAB HEMETOLOGY METHOD 07/08/2024 10:07 AM [facility] Neutrophils Absolute 6.29 1.50 - 7.00 K/mcL LAB HEMETOLOGY METHOD 07/08/2024 10:07 AM [facility] Lymphocytes Absolute 0.68(L) 1.00 - 5.00 K/mcL LAB HEMETOLOGY METHOD 07/08/2024 10:07 AM [facility] Monocytes Absolute 0.93 0.20 - 1.00 K/mcL LAB HEMETOLOGY METHOD 07/08/2024 10:07 AM [facility] Eosinophils Absolute 0.12 0.00 - 0.50 K/mcL LAB HEMETOLOGY METHOD 07/08/2024 10:07 AM EST [facility] Basophils Absolute 0.03 0.00 - 0.20 K/[facility] LAB HEMETOLOGY METHOD 07/08/2024 10:07 AM EST [facility] Immature Granulocytes Absolute 0.03 0.00 - 0.03 K/[facility] LAB HEMETOLOGY METHOD 07/08/2024 10:07 AM EST [facility] Blood Venous blood specimen / Unknown Venipuncture / Unknown 07/08/2024 6:27 AM EST 07/08/2024 9:00 AM EST Viola Tubbs MD LAB BLOOD ORDERABLES Performing Organization Address [facility]/ZIP Co de Phone Number [facility] [address] [place] [address], * Magnesium (07/08/2024 6:27 AM EST) Only the most recent of3 resultswithin the time period is included. Magnesium 2.1 1.9 - 2.6 mg/dL LAB CHEMISTRY METHOD 07/08/2024 11:01 AM EST [facility] Blood Venous blood specimen / Unknown Venipuncture / Unknown 07/08/2024 6:27 AM EST 07/08/2024 9:00 AM EST Viola Tubbs MD LAB BLOOD ORDERABLES Performing Organization Address [facility]/ZIP Co de Phone Number [facility] [address] [place] [address], [place] [phone] * (ABNORMAL) Basic metabolic panel (07/08/2024 6:27 AM EST) Only the most recent of5 resultswithin the time period is included. Sodium 138 133 - 145 mmol/L LAB CHEMISTRY METHOD 07/08/2024 11:08 AM EST [facility] Potassium 4.4 3.5 - 5.5 mmol/L LAB CHEMISTRY METHOD 07/08/2024 11:08 AM [facility] Chloride 98 96 - 110 mmol/L LAB CHEMISTRY METHOD 07/08/2024 11:08 AM [facility] CO2 37(H) 21 - 32 mmol/L LAB CHEMISTRY METHOD 07/08/2024 11:08 AM [facility] Anion Gap 3 3 - 11 LAB CHEMISTRY METHOD 07/08/2024 11:08 AM [facility] Glucose 148(H) 70 - 100 mg/dL LAB CHEMISTRY METHOD 07/08/2024 11:08 AM [facility] BUN 26(H) 5 - 25 mg/dL LAB CHEMISTRY METHOD 07/08/2024 11:08 AM [facility] Creatinine 0.59 0.50 - 1.10 mg/dL LAB CHEMISTRY METHOD 07/08/2024 11:08 AM [facility] eGFR 94 >=60 mL/min/1. 73m2 LAB CHEMISTRY METHOD 07/08/2024 11:08 AM [facility] Comment:Calculation based on the??Chronic Kidney Disease Epidemiology Collaboration (CKD-EPI) equation refit??without adjustment for race. BUN/Creatinine Ratio 44.1 LAB CHEMISTRY METHOD 07/08/2024 11:08 AM [facility] Calcium 8.5 8.5 - 10.5 mg/dL LAB CHEMISTRY METHOD 07/08/2024 11:08 AM [facility] Blood Venous blood specimen / Unknown Venipuncture / Unknown 07/08/2024 6:27 AM EST 07/08/2024 9:00 AM EST Viola Tubbs MD LAB BLOOD ORDERABLES [facility] [address] [place] [address], * Thyroid stimulating hormone (06/28/2024 6:19 AM EST) TSH 1.72 0.40 - 4.00 mcIU/mL LAB CHEMISTRY METHOD 06/28/2024 12:29 PM [facility] Blood Venous blood specimen / Unknown Venipuncture / Unknown 06/28/2024 6:19 AM EST 06/28/2024 11:08 AM EST Viola Tubbs MD LAB BLOOD ORDERABLES [facility] [address] [place] [address], * (ABNORMAL) Comprehensive metabolic panel (06/28/2024 6:19 AM EST) Only the most recent of2 resultswithin the time period is included. Pathologist [facility] Sodium 138 133 - 145 mmol/L LAB CHEMISTRY METHOD 06/28/2024 12:46 PM [facility] Potassium 4.3 3.5 - 5.5 mmol/L LAB CHEMISTRY METHOD 06/28/2024 12:46 PM [facility] Chloride 99 96 - 110 mmol/L LAB CHEMISTRY METHOD 06/28/2024 12:46 PM [facility] CO2 38(H) 21 - 32 mmol/L LAB CHEMISTRY METHOD 06/28/2024 12:46 PM [facility] Anion Gap 1(L) 3 - 11 LAB CHEMISTRY METHOD 06/28/2024 12:46 PM [facility] Glucose 99 70 - 100 mg/dL LAB CHEMISTRY METHOD 06/28/2024 12:46 PM [facility] BUN 65(H) 5 - 25 mg/dL LAB CHEMISTRY METHOD 06/28/2024 12:46 PM [facility] Comment:Results verified by repeat testing Creatinine 0.89 0.50 - 1.10 mg/dL LAB CHEMISTRY METHOD 06/28/2024 12:46 PM [facility] eGFR 67 >=60 mL/min/1. 73m2 LAB CHEMISTRY METHOD 06/28/2024 12:46 PM [facility] Comment:Calculation based on the??Chronic Kidney Disease Epidemiology Collaboration (CKD-EPI) equation refit??without adjustment for race. BUN/Creatinine Ratio 73.0 LAB CHEMISTRY METHOD 06/28/2024 12:46 PM [facility] Calcium 8.5 8.5 - 10.5 mg/dL LAB CHEMISTRY METHOD 06/28/2024 12:46 PM [facility] AST (SGOT) 23 10 - 42 unit/L LAB CHEMISTRY METHOD 06/28/2024 12:46 PM [facility] ALT (SGPT) 25 10 - 60 unit/L LAB CHEMISTRY METHOD 06/28/2024 12:46 PM [facility] Alkaline Phosphatase 76 42 - 121 unit/L LAB CHEMISTRY METHOD 06/28/2024 12:46 PM [facility] Total Protein 6.4 6.0 - 8.0 g/dL LAB CHEMISTRY METHOD 06/28/2024 12:46 PM [facility] Albumin 2.4(L) 3.2 - 5.0 g/dL LAB CHEMISTRY METHOD 06/28/2024 12:46 PM [facility] Total Bilirubin 0.4 0.0 - 1.4 mg/dL LAB CHEMISTRY METHOD 06/28/2024 12:46 PM [facility] Blood Venous blood specimen / Unknown Venipuncture / Unknown 06/28/2024 6:19 AM EST 06/28/2024 11:08 AM EST Viola Tubbs MD LAB BLOOD ORDERABLES [facility] [address] [place] [address], * [facility] DEXA AXIAL [facility]KELE[facility] (10/26/2022 11:00 AM EDT) Anatomical Region Laterality Modality Mammography 10/25/2022 1:52 PM EDT Narrative 10/26/2022 11:00 AM EDT [facility] Diagnostic Imaging Department [address] [place] [address] Patient: ??OSCAR,ANU ?/Age/Sex: 1945 - Unit#: ??[id number] ? Location/Status: ??SPDIMAM/REG CLI ? Mnemonic/Ordering Site: [...] probability of hip fracture of 13.1%. Code 50749 Dictating Physician: ??EDU MATHUR MD Electronically Signed by: ??EDU MATHUR MD Dic Date/Time: ??10/26/22 1059 Sign date/Time: ??10/26/22 1100 Procedure Note Edu Mathur MD - 07/07/2023 [facility] Diagnostic Imaging Department [address] [place] [address] Patient: ANU MOORE /Age/Sex: 1945 - 77 - F Unit#: [id number] [facility] Mnemonic/Ordering Site: MAMDEXAAX/SPMAM Ordering Physician: MARCELA MAE Sabas Dexa Axial Skeleton - 10/25/22 - 3046 HISTORY: The patient is a 77-year-old postmenopausal [...] density of the femurs bilaterally is 0.608 gm/[id number] is 60% of that of young normals [...] probability of hip fracture of 13.1%. Code 84677 Dictating Physician: EDU MATHUR MD Electronically Signed by: EDU MATHUR MD Dic Date/Time: 10/26/22 1059 Sign date/Time: 10/26/22 1100 Marcela Mae NP IMG BI PROCEDURES * [facility]AS SCREENING DIGITAL (10/25/2022 4:04 PM EDT) Anatomical Region Laterality Modality Mammography 10/25/2022 1:54 PM EDT Narrative 10/25/2022 4:04 PM EDT [facility] Diagnostic Imaging Department [address] [place] [address] Patient: ??MITROWSKI,ANU ?/Age/Sex: 1945 - 77 - F Unit#: ??[id number] ? Location/Status: ??SPDIMAM/REG CLI ? Mnemonic/Ordering Site: [...] the MLO projection. Computer aided detection with Flukle 7.2-H and [employer] 3D 3.1 was employed. TISSUE DENSITY: c. [...] Routine screening mammogram BILATERAL in 1 year. 29479, 59539 3342F, 7025F Dictating Physician: ??AMANDO PABON MD Electronically Signed by: ??AMANDO PABON MD Dic Date/Time: ??10/25/22 1603 Sign date/Time: ??10/25/22 1604 Procedure Note Amando Pabon MD - 07/07/2023 [facility] Diagnostic Imaging Department [address] [place] [address] Patient: ANU MOORE/Age/Sex: 1945 - 77 - F Unit#: [id number] Location/Status: SPDIMAM/REG CLI Mnemonic/Ordering Site: [facility] Ordering Physician: MARCELA [...] the MLO projection. Computer aided detection with Flukle 7.2-H andMet[employer] 3D 3.1 was employed. TISSUE DENSITY: c. [...] Routine screening mammogram BILATERAL in 1 year. 13619, [id number] 3342F, 7025F Dictating Physician: AMANDO PABON MD Electronically Signed by: AMANDO PABON MD Dic Date/Time: 10/25/22 1603 Sign date/Time: 10/25/22 1604 Marcela Mae CLAM SHOVEL OPERATOR IMG BI PROCEDURES from Last 3 Months or Most Recently Relevant to Health Maintenance Care Teams Thermodynamics Professor Relationship Specialty Start Date End Date Dmitry Jason MD [address] [place] [phone] PCP - General Internal Medicine 07/02/24
--- OUTSIDE RECORDS SUMMARY | 2024-07-12 12:11 | XMS_ITS | Encounter Summary ---
Author Organization [facility] Address [address] [place] [address] Care Team Providers Care Seam Stay Stitcher Name Role Phone Dmitry Jason MD Primary Care Provider [phone] Encounter Details Date Type Department Care Team (Late st Contact Info) Description 07/03/2024 Lab Requisition [facility] Lab [address] [place] [address] Viola Tubbs MD [address] [place] [address] Encounter for other general examination Social History [...] LAB CHEMISTRY METHOD 07/03/2024 12:38 PM EST [facility] Potassium 5.0 3.5 - 5.5 mmol/L LAB CHEMISTRY METHOD 07/03/2024 12:38 PM EST [facility] Chloride 94(L) 96 - 110 mmol/L LAB CHEMISTRY METHOD 07/03/2024 12:38 PM EST [facility] CO2 42(HH) 21 - 32 mmol/L LAB CHEMISTRY METHOD 07/03/2024 12:38 PM EST [facility] Anion Gap 2(L) 3 - 11 LAB CHEMISTRY METHOD 07/03/2024 12:38 PM [facility] Glucose 92 70 - 100 mg/dL LAB CHEMISTRY METHOD 07/03/2024 12:38 PM [facility] BUN 29(H) 5 - 25 mg/dL LAB CHEMISTRY METHOD 07/03/2024 12:38 PM [facility] Creatinine 0.66 0.50 - 1.10 mg/dL LAB CHEMISTRY METHOD 07/03/2024 12:38 PM [facility] eGFR 91 >=60 mL/min/1. 73m2 LAB CHEMISTRY METHOD 07/03/2024 12:38 PM [facility] Comment:Calculation based on the??Chronic Kidney Disease Epidemiology Collaboration (CKD-EPI) equation refit??without adjustment for race. BUN/Creatinine Ratio 43.9 LAB CHEMISTRY METHOD 07/03/2024 12:38 PM [facility] Calcium 9.2 8.5 - 10.5 mg/dL LAB CHEMISTRY METHOD 07/03/2024 12:38 PM [facility] Blood Venous blood specimen / Unknown Venipuncture / Unknown 07/03/2024 5:55 AM EST 07/03/2024 10:31 AM EST Viola Tubbs MD LAB BLOOD ORDERABLES Performing Organization Address City/[facility]/ZIP Co de Phone Number [facility] [address] [place] [address], documented in this encounter Visit Diagnoses Diagnosis Encounter for other general examination documented in this encounter Care Teams Seam Stay Stitcher Relationship Specialty Start Date End Date Dmitry Jason MD [address] [place] [phone] PCP - General Internal Medicine 07/02/24 documented as of this encounter
--- OUTSIDE RECORDS SUMMARY | 2024-07-12 12:11 | XMS_ITS | Encounter Summary ---
Author Organization [facility] Address [address] [place] [address] Care Team Providers Care Veterinary Practice Manager Name Role Phone Dmitry Jason MD Primary Care Provider [phone] Encounter Details Date Type Department Care Team (Late st Contact Info) Description 07/04/2024 Lab Requisition [facility] Lab [address] [place] [address] Viola Tubbs MD [address] [place] [address] Encounter for other general examination Social History [...] LAB CHEMISTRY METHOD 07/04/2024 11:50 AM EST [facility] Potassium 4.8 3.5 - 5.5 mmol/L LAB CHEMISTRY METHOD 07/04/2024 11:50 AM EST [facility] Chloride 96 96 - 110 mmol/L LAB CHEMISTRY METHOD 07/04/2024 11:50 AM EST [facility] CO2 42(HH) 21 - 32 mmol/L LAB CHEMISTRY METHOD 07/04/2024 11:50 AM EST [facility] Anion Gap 1(L) 3 - 11 LAB CHEMISTRY METHOD 07/04/2024 11:50 AM [facility] Glucose 114(H) 70 - 100 mg/dL LAB CHEMISTRY METHOD 07/04/2024 11:50 AM [facility] BUN 22 5 - 25 mg/dL LAB CHEMISTRY METHOD 07/04/2024 11:50 AM [facility] Creatinine 0.66 0.50 - 1.10 mg/dL LAB CHEMISTRY METHOD 07/04/2024 11:50 AM [facility] eGFR 91 >=60 mL/min/1. 73m2 LAB CHEMISTRY METHOD 07/04/2024 11:50 AM [facility] Comment:Calculation based on the??Chronic Kidney Disease Epidemiology Collaboration (CKD-EPI) equation refit??without adjustment for race. BUN/Creatinine Ratio 33.3 LAB CHEMISTRY METHOD 07/04/2024 11:50 AM [facility] Calcium 8.6 8.5 - 10.5 mg/dL LAB CHEMISTRY METHOD 07/04/2024 11:50 AM [facility] Blood Venous blood specimen / Unknown Venipuncture / Unknown 07/04/2024 5:50 AM EST 07/04/2024 9:24 AM EST Viola Tubbs MD LAB BLOOD ORDERABLES Performing Organization Address City/[facility]/ZIP Co de Phone Number [facility] [address] [place] [address], documented in this encounter Visit Diagnoses Diagnosis Encounter for other general examination documented in this encounter Care Teams Veterinary Practice Manager Relationship Specialty Start Date End Date Dmitry Jason MD [address] [place] [phone] PCP - General Internal Medicine 07/02/24 documented as of this encounter
--- OUTSIDE RECORDS SUMMARY | 2024-07-12 12:11 | XMS_ITS | Encounter Summary ---
Author Organization [facility] Address [address] [place] [address] Care Team Providers Care Manager Spanish Name Role Phone Dmitry Jason MD Primary Care Provider [phone] Encounter Details Date Type Department Care Team (Late st Contact Info) Description 06/28/2024 Lab Requisition [facility] - [facility] Lab [address] [place] [address] Viola Tubbs MD [address] [place] [phone] Encounter for other general examination Social History [...] auto differential (06/28/2024 6:19 AM EST) Pathologist [facility] WBC 8.0 4.8 - 10.8 K/mcL LAB HEMETOLOGY METHOD 06/28/2024 11:[address] [facility] RBC 3.70(L) 3.80 - 4.80 M/mcL LAB HEMETOLOGY METHOD 06/28/2024 11:[address] [facility] Hemoglobin 10.1(L) 11.5 - 16.0 g/dL LAB HEMETOLOGY METHOD 06/28/2024 11:[address] [facility] Hematocrit 35.5 35.0 - 47.0 % LAB HEMETOLOGY METHOD 06/28/2024 11:[address] [facility] MCV 95.9 79.0 - 98.0 FL LAB HEMETOLOGY METHOD 06/28/2024 11:[address] [facility] MCH 27.3 27.0 - 32.0 pcg LAB HEMETOLOGY METHOD 06/28/2024 11:[address] [facility] MCHC 28.5(L) 32.0 - 37.0 g/dL LAB HEMETOLOGY METHOD 06/28/2024 11:[address] [facility] RDW 18.8(H) 11.0 - 15.0 % LAB HEMETOLOGY METHOD 06/28/2024 11:[address] [facility] Platelets 136 130 - 400 K/mcL LAB HEMETOLOGY METHOD 06/28/2024 11:[address] [facility] MPV 9.9 7.0 - 11.0 FL LAB HEMETOLOGY METHOD 06/28/2024 11:[address] [facility] NRBC 0.0 <1.0 % LAB HEMETOLOGY METHOD 06/28/2024 11:[address] [facility] NRBC Absolute 0.00 <0.10 K/mcL LAB HEMETOLOGY METHOD 06/28/2024 11:[address] [facility] Neutrophils Relative 81.9 % LAB HEMETOLOGY METHOD 06/28/2024 11:[address] [facility] Lymphocytes Relative 8.0 % LAB HEMETOLOGY METHOD 06/28/2024 11:[address] [facility] Monocytes Relative 9.3 % LAB HEMETOLOGY METHOD 06/28/2024 11:[address] [facility] Eosinophils Relative 0.1 % LAB HEMETOLOGY METHOD 06/28/2024 11:[address] [facility] Basophils Relative 0.1 % LAB HEMETOLOGY METHOD 06/28/2024 11:[address] [facility] Immature Granulocytes Relative 0.6 % LAB HEMETOLOGY METHOD 06/28/2024 11:[address] [facility] Neutrophils Absolute 6.51 1.50 - 7.00 K/mcL LAB HEMETOLOGY METHOD 06/28/2024 11:[address] [facility] Lymphocytes Absolute 0.64(L) 1.00 - 5.00 K/mcL LAB HEMETOLOGY METHOD 06/28/2024 11:[address] [facility] Monocytes Absolute 0.74 0.20 - 1.00 K/mcL LAB HEMETOLOGY METHOD 06/28/2024 11:[address] [facility] Eosinophils Absolute 0.01 0.00 - 0.50 K/mcL LAB HEMETOLOGY METHOD 06/28/2024 11:[address] [facility] Basophils Absolute 0.01 0.00 - 0.20 K/mcL LAB HEMETOLOGY METHOD 06/28/2024 11:[address] [facility] Immature Granulocytes Absolute 0.05(H) 0.00 - 0.03 K/mcL LAB HEMETOLOGY METHOD 06/28/2024 11:[address] [facility] Blood Venous blood specimen / Unknown Venipuncture / Unknown 06/28/2024 6:19 AM EST 06/28/2024 11:08 AM EST Viola Tubbs MD LAB BLOOD ORDERABLES Performing Organization Address [facility]/ZIP Co de Phone Number [facility] [address] [place] [address], * Thyroid stimulating hormone (06/28/2024 6:19 AM EST) TSH 1.72 0.40 - 4.00 mcIU/mL LAB CHEMISTRY METHOD 06/28/2024 12:29 PM EST [facility] Blood Venous blood specimen / Unknown Venipuncture / Unknown 06/28/2024 6:19 AM EST 06/28/2024 11:08 AM EST Viola Tubbs MD LAB BLOOD ORDERABLES Performing Organization Address [facility] Co de Phone Number [facility] [address] [place] [address], * Magnesium (06/28/2024 6:19 AM EST) Pathologist [facility] Magnesium 2.2 1.9 - 2.6 mg/dL LAB CHEMISTRY METHOD 06/28/2024 12:22 PM EST [facility] Blood Venous blood specimen / Unknown Venipuncture / Unknown 06/28/2024 6:19 AM EST 06/28/2024 11:08 AM EST Viola Tubbs MD LAB BLOOD ORDERABLES Performing Organization Address City/[facility]/ZIP Co de Phone Number [facility] [address] [place] [address], [place] [phone] * (ABNORMAL) Comprehensive metabolic panel (06/28/2024 6:19 AM EST) Sodium 138 133 - 145 mmol/L LAB CHEMISTRY METHOD 06/28/2024 12:46 PM EST [facility] Potassium 4.3 3.5 - 5.5 mmol/L LAB CHEMISTRY METHOD 06/28/2024 12:[address] [facility] Chloride 99 96 - 110 mmol/L LAB CHEMISTRY METHOD 06/28/2024 12:[address] [facility] CO2 38(H) 21 - 32 mmol/L LAB CHEMISTRY METHOD 06/28/2024 12:[address] [facility] Anion Gap 1(L) 3 - 11 LAB CHEMISTRY METHOD 06/28/2024 12:[address] [facility] Glucose 99 70 - 100 mg/dL LAB CHEMISTRY METHOD 06/28/2024 12:[address] [facility] BUN 65(H) 5 - 25 mg/dL LAB CHEMISTRY METHOD 06/28/2024 12:[address] [facility] Comment:Results verified by repeat testing Creatinine 0.89 0.50 - 1.10 mg/dL LAB CHEMISTRY METHOD 06/28/2024 12:[address] [facility] eGFR 67 >=60 mL/min/1. 73m2 LAB CHEMISTRY METHOD 06/28/2024 12:[address] [facility] Comment:Calculation based on the??Chronic Kidney Disease Epidemiology Collaboration (CKD-EPI) equation refit??without adjustment for race. BUN/Creatinine Ratio 73.0 LAB CHEMISTRY METHOD 06/28/2024 12:[address] [facility] Calcium 8.5 8.5 - 10.5 mg/dL LAB CHEMISTRY METHOD 06/28/2024 12:[address] [facility] AST (SGOT) 23 10 - 42 unit/L LAB CHEMISTRY METHOD 06/28/2024 12:[address] [facility] ALT (SGPT) 25 10 - 60 unit/L LAB CHEMISTRY METHOD 06/28/2024 12:[address] [facility] Alkaline Phosphatase 76 42 - 121 unit/L LAB CHEMISTRY METHOD 06/28/2024 12:[address] [facility] Total Protein 6.4 6.0 - [...] BLOOD ORDERABLES [facility] [address] [place] [address], documented in this encounter Visit Diagnoses Diagnosis Encounter for other general examination documented in this encounter Care Teams Manager Spanish Relationship Specialty Start Date End Date Dmitry Jason MD [address] [place] [phone] PCP - General Internal Medicine 07/02/24 documented as of this encounter
[2024-07-12 12:12] LABS: Alanine Aminotransferase 48 U/L (0-31); Albumin Level 2.8 g/dL (3.5-5.0); Alkaline Phosphatase 187 U/L (39-117); Anion Gap 7 (12-20); Aspartate Amino Transferase 26 U/L (5-31); Bilirubin Total 0.2 mg/dL (0.0-1.0); Blood Urea Nitrogen 33 mg/dL (9-16); Calcium 8.6 mg/dL (8.4-10.2); Carbon Dioxide 34 mmol/L (22-29); Chloride 106 mmol/L (96-108); Creatinine Clr Calc Pharmacy 49.4; Estimated Glomerular Filt Rate > 60; Glucose Random 236 mg/dL (60-115); Potassium 4.4 mmol/L (3.3-5.1); Sodium 143 mmol/L (135-145); Total Protein 7.1 g/dL (6.5-8.0)
--- NOTE | 2024-07-12 12:15 | ECG_ITS ---
Test Reason : SOB Blood Pressure : */* mmHG Vent. Rate : 151 BPM Atrial Rate : * BPM P-R Int : * ms QRS Dur : 86 ms QT Int : 254 ms P-R-T Axes : * -12 73 degrees QTcB Int : 402 ms Normal sinus rhythm with onest of SVT Nonspecific ST and T wave abnormality Abnormal ECG When compared with ECG of 24-Jun-2024 08:20, Vent. rate has increased by 79 bpm Questionable change in QRS axis Nonspecific T wave abnormality, improved in Anterior leads Referred By: Danyell Helms Electronically Signed By: SANJAY HARVEY MD
[2024-07-12 12:33] LABS: Influenza A PCR NEGATIVE (Negative); Influenza B PCR NEGATIVE (Negative); Resp Syncy Virus RNA Qual PCR POSITIVE (Negative); SARS COV2 PCR INHOUSE NEGATIVE (Negative)
[2024-07-12] MEDS: cefTRIAXone sodium 1 GM VIAL IVPUSH (12:52)
[2024-07-12 13:15] LABS: Lactic Acid 1.4 mmol/L (0.5-2.0)
[2024-07-12 14:46] LABS: Prothrombin Time 11.6 SEC (10.9-12.4)
[2024-07-12 14:48] LABS: D Dimer High Sensitivity 752 NG/ML; Partial Thromboplastin Time 24.5 SEC (26.0-36.8)
[2024-07-12] MEDS: iohexoL 350 MG/ML 100 ML INFUS..BTL 65 ML IV (16:40)
--- NOTE | 2024-07-12 16:59 | PC.NURSE ---
Pt is tachipnic but not labored. LS CTA> ST on monitor. no cough. Awaits CT scan. +2-3 Pitting edema to shins Bilaterally. brace in place of left knee.
--- NOTE | 2024-07-12 19:05 | PM.IMHP ---
History of Present Illness Date of Service: 07/12/24 Attending physician on admission: Vick Babb Chief Complaint: Hypoxia Pt is a 78-year-old female with a PMH significant for?COPD on 2L home O2, insulin-dependent type 2 diabetes, hx of SVT, GERD, and recent left tibial plateau fracture who presents to the ED from home after VNA noted her to have increased work of breathing and pt was desatting to the mid 60s on home O2. [facility]. Since then pt reports he has had mostly lightheadedness and dizziness, nonproductive cough, increased SOB, fatigue, and feeling like she is ?not getting enough oxygen?. Denies fever, chills, nausea, vomiting. No nasal congestion or rhinorrhea. Denies myalgias. No chest pain/pressure, or palpitations. In the ED pt had low-grade fever 99.1, tachycardic up to 100, tachypneic up to 24, and hypertensive as high as 145/69. During interview and exam pt was noted to be desatting into the 70s on 2L NC with slow recovery. Labs were significant for testing positive for RSV, elevated D-dimer of 752, ALT 48, and alk-phos 187. No leukocytosis. Stable normocytic anemia of 10.6/36.1. Renal function baseline. Lactic acid WNL. VBG with pH 7.34, pCO2 78, and bicarb 42. CXR concerning for pulmonary edema and bilateral pleural effusions with questionable loculation with superimposed acute inflammatory vs infectious process not excluded. CTA of chest negative for pulmonary embolism?but showed mild pulmonary edema. EKG demonstrated normal sinus rhythm with T-wave inversions in V1 and V2. Pt was treated with DuoNebs and ceftriaxone. Pt will be admitted to the hospital for treatment and further evaluation of acute on chronic hypoxic respiratory failure in the setting of RSV infection with concomitant COPD exacerbation. Review of Systems Review of Systems: Negative except for that which is stated in the [facility] Medical History Abdominal wall bulge Closed intertrochanteric fracture of left hip Chronic hypotension Closed hip fracture Hypotension Hypotension Tachycardia Diabetes Sepsis Pneumonia Acute sinusitis Hypoxemia Pulmonary emphysema Pneumothorax Diabetes mellitus with microalbuminuria, without long-term current use of insulin Vaccination refused by patient Underweight Intermittent palpitations Diabetes mellitus with hyperglycemia, without long-term current use of insulin Hx of fracture of wrist H/O fracture of wrist Family History Father Diabetes mellitus Mother Essential hypertension Sister Breast cancer Surgical History H/O wrist surgery History of femoral hernia repair Social History Household Members: Spouse Housing: House Do you presently have visiting nurse or other home services: No Alcohol intake: never Comment: bed alarm is not working. put chair alarm on her Patient Tobacco Use Status: Never used Tobacco Smoked in Last 30 Days: No e-Cigarette/Vaping Use: Never Used Second Hand Smoke Exposure: Yes ( smoker) Use of substances other than those prescribed or required for medical reasons: No Advance Directives: Yes Advance Directives on File: Yes Advance Directives Date on File: 06/16/22 Do you have a plan to hurt others: No Plan service: No Current occupational status: retired Cognitive needs: No Hearing needs: No Vision needs: No Meds Allergies Allergy/AdvReac Type Severity Reaction Status Date / Time sulfa Allergy Unknown diarrhea Verified 07/12/24 10:58 midazolam [From Versed] AdvReac Severe bradycardia Verified 07/12/24 10:58 Home Medications ?Medication ?Instructions ?Recorded ?Confirmed ?Last Taken ?Type ascorbic acid (vitamin C) 500 mg 500 mg PO DAILY 05/26/20 07/12/24 1 Day Ago History capsule ~07/11/24 [id number] ac 400 1 tab PO DAILY 05/26/20 07/12/24 1 Day Ago History mcg-calcium carb 500 mg-vit K1 20 ~07/11/24 mcg tablet (Women's 50 Plus Multivitamin) cholecalciferol (vitamin D3) 10 25 mcg PO DAILY 07/11/22 07/12/24 1 Day Ago History mcg (400 unit) tablet (Vitamin D3) ~07/11/24 biotin 2,500 mcg chewable tablet 1,000 mcg PO DAILY 01/14/24 07/12/24 1 Day Ago History ~07/11/24 pen needle, diabetic 31 gauge x #1,200 ea 05/22/24 Unknown History 08/18 (BD Ultra-Fine Mini Pen Needle) acetaminophen 325 mg capsule 650 mg PO Q6H PRN Pain/Fever 07/10/24 07/12/24 Unknown History loperamide 2 mg tablet 2 mg PO Q6H PRN Loose Stool 07/10/24 07/12/24 Unknown History lutein 20 mg capsule 20 mg PO DAILY 07/10/24 07/12/24 1 Day Ago History ~07/11/24 aspirin 81 mg tablet,delayed 81 mg PO BID 07/12/24 07/12/24 1 Day Ago History release ~07/11/24 diltiazem HCl 30 mg tablet 30 mg PO TID 07/12/24 07/12/24 1 Day Ago History ~07/11/24 insulin glargine 100 unit/mL (3 8 unit subcut DAILY 07/12/24 07/12/24 1 Day Ago History mL) subcutaneous pen (Lantus ~07/11/24 Solostar U-100 Insulin) magnesium oxide 400 mg (241.3 mg 400 mg PO BID 07/12/24 07/12/24 1 Day Ago History magnesium) tablet ~07/11/24 Physical Exam Vital Signs and Narrative: Vital Signs: Last Vital Signs Temp 98.1 F 07/12/24 16:56 Pulse 100 07/12/24 16:56 Resp 29 H 07/12/24 16:56 BP 142/66 H 07/12/24 16:56 Pulse Ox 94 07/12/24 16:56 O2 Del Method Nasal Cannula 07/12/24 16:56 O2 Flow Rate 4 07/12/24 16:56 Oxygen Flow Rate 4 07/12/24 10:57 BMI result Body Mass Index 18.4 General: AOx3, frail-looking, cachetic. In no acute distress Resp: Bilateral diffuse expiratory wheezing and rhonchi. CVS: S1, S2, RRR GI: +BS, NT, no distention Skin: Warm, dry Neuro: Cranial nerves II-XII grossly intact bilaterally. Motor grossly intact bilaterally Extremities: 2+ bilateral pitting edema Psych: Appropriate affect Results Labs 07/12/24 11:40 07/12/24 11:40 Labs: Laboratory Results - last 24 hr 07/12/24 07/12/24 07/12/24 11:40 11:47 12:42 MCV 94.0 MCH 27.6 MCHC 29.4 L RDW 18.5 H Plt Count 287 D MPV 9.1 L Immature Gran % (Auto) 0.5 H Neut % (Auto) 83.3 H Lymph % (Auto) 6.2 L [place] % (Auto) 9.0 Eos % (Auto) 0.5 Baso % (Auto) 0.5 Lymph # (Auto) 0.4 L [place] # (Auto) 0.6 Eos # (Auto) 0.0 Baso # (Auto) 0.0 Abs Immat Gran (auto) 0.03 Absolute Neuts (auto) 5.3 Absolute Nucleated RBC 0.000 Nucleated RBC % (auto) 0.0 PT INR APTT D-Dimer High Sensitivty VBG pH 7.34 VBG pCO2 78 VBG pO2 34 VBG HCO3 42 H VBG O2 Saturation 48.0 VBG Base Excess 13.6 Anion Gap 7 L Estim Creat Clear Calc 49.4 Estimated GFR > 60 Random Glucose 236 H Lactic Acid 1.4 Calcium 8.6 D Total Bilirubin 0.2 AST 26 ALT 48 H Alkaline Phosphatase 187 H Total Protein 7.1 Albumin 2.8 L Influenza Type A (PCR) NEGATIVE Influenza Type B (PCR) NEGATIVE RSV RNA Qual (PCR) POSITIVE A SARS-CoV-2 RNA (RT-PCR) NEGATIVE 07/12/24 14:25 MCV MCH MCHC RDW Plt Count MPV Immature Gran % (Auto) Neut % (Auto) Lymph % (Auto) [place] % (Auto) Eos % (Auto) Baso % (Auto) Lymph # (Auto) [place] # (Auto) Eos # (Auto) Baso # (Auto) Abs Immat Gran (auto) Absolute Neuts (auto) Absolute Nucleated RBC Nucleated RBC % (auto) PT 11.6 INR 1.0 APTT 24.5 L D-Dimer High Sensitivty 752 VBG pH VBG pCO2 VBG pO2 VBG HCO3 VBG O2 Saturation VBG Base Excess Anion Gap Estim Creat Clear Calc Estimated GFR Random Glucose Lactic Acid Calcium Total Bilirubin AST ALT Alkaline Phosphatase Total Protein Albumin Influenza Type A (PCR) Influenza Type B (PCR) RSV RNA Qual (PCR) SARS-CoV-2 RNA (RT-PCR) Imaging Radiologist's Impressions: Impressions Chest X-Ray 07/12/24 11:31 IMPRESSION: Concerning pulmonary edema and bilateral pleural effusions with questionable loculation. Superimposed acute inflammatory versus infectious processes cannot be excluded. Recommend follow-up until resolution. Electronically signed by: Kobi Lorenzana MD 07/12/2024 11:57 AM EST Assessment and Plan (1) Respiratory syncytial virus (RSV): Status: Acute (2) Acute on chronic hypoxic respiratory failure: Status: Acute (3) COPD exacerbation: Status: Acute Plan Pt is a 78-year-old female with a PMH significant for?COPD on 2L home O2, insulin-dependent type 2 diabetes, hx of SVT, GERD, and recent left tibial plateau fracture who presents to the ED from home after VNA noted her to have increased work of breathing and pt was desatting to the mid 60s on home O2. Pt will be admitted to the hospital for treatment and further evaluation of acute on chronic hypoxic respiratory failure in the setting of RSV infection with concomitant COPD exacerbation. Acute on chronic hypoxic respiratory failure in the setting of RSV infection and COPD exacerbation Pt desatting into 60s on home O2, RSV+, wheezing and rhonchi upon auscultation, increased SOB, MAURER, fatigue, and lightheadedness and dizziness CTA negative for pulmonary emboli or consolidation/pneumonia No sepsis: Tachycardia and tachypnea secondary to viral infection, no lactic acidosis No indication to continue antibiotics at this time Will treat with Solu-Medrol, DuoNebs, and guaifenesin Titrate supplemental O2 >90, pt on 2L home O2, wean as tolerated Monitor respiratory status ?CHF Imgaging showing pulmonary edema and bilateral pleural effusions, pt with 2+ bilateral pitting edema No CHF history, not on diuretics Will treat with Lasix 20mg IV daily Check BNP Consider echocardiogram/additional workup if BNP elevated Follow BMP and electrolytes Left proximal femur fracture Secondary to fall at home 06/24/2024 Returned from rehab a few days ago Repeat imaging shows stable fracture Hx of SVT Continue diltiazem, metoprolol Insulin-dependent type 2 diabetes Sliding-scale insulin, Lantus Diabetic diet Full Code Attending:? DVT Prophylaxis: Lovenox Pt will require a hospitalization of at least two nights for treatment of?acute on chronic hypoxic respiratory failure in the setting of RSV infection with concomitant COPD exacerbation. Given patient's level of hypoxia, they will require hospital level care for administration of supplemental oxygen, IV steroids, breathing treatments, as well as IV diuretics for pleural effusions and pulmonary edema. Quality Stroke Does the patient have a stroke diagnosis?: No VTE Prior VTE?: No VTE Risk Level:: Medical - moderate - high VTE Device Contraindication: Treatment Not Indicated VTE Drug Contraindication: N/A - Med Ordered
--- NOTE | 2024-07-12 20:09 | PHA.MEDREC ---
Addendum entered by Geovani Lundberg [facility] 07/12/24 20:22: med rec reviewed Original Note: Pharmacy Consult ? Medication Reconciliation Pharmacy has completed the medication reconciliation. Spoke with patient and she confirmed her medications. She confirmed her Lantus Solostar and confirmed she is injecting 8 units in the morning. She confirmed she stopped taking the Pantoprazole 40mg tab due to not finding any relief while taking it. She was not sure the last time she took her medications at this time, she knew she did not take any his morning and stated she may have taken them yesterday.
[2024-07-12] MEDS: Albuterol/Iprat 2.5/0.5MG 3 ML AMPUL.NEB INHALE (20:13)
[2024-07-12 20:35] LABS: B Type Natriuretic Peptide 1019 pg/mL (<100)
[2024-07-12] MEDS: Insulin Lispro 100 UNIT/ML 3 ML VIAL SUBCUT (20:36)
[2024-07-12] MEDS: Furosemide 20 MG/2 ML VIAL IVPUSH (20:36)
[2024-07-12] MEDS: Enoxaparin Sodium 40 MG/0.4 ML SYRINGE SUBCUT (20:36)
[2024-07-12] MEDS: methylPREDNISolone Sod Succ 40 MG/ML VIAL IVPUSH (20:36)
[2024-07-12] MEDS: Metoprolol Tartrate 25 MG TABLET PO (20:37)
[2024-07-12] MEDS: Insulin Glargine,Hum.rec.anlog 100 UNIT/ML 10 ML VIAL 6 UNIT SUBCUT (20:37)
[2024-07-12] MEDS: Magnesium Oxide 400 MG TABLET PO (20:38)
[2024-07-12] MEDS: Aspirin Enteric Coated 81 MG TABLET.DR PO (20:38)
[2024-07-12] MEDS: dilTIAZem HCL 30 MG TABLET PO (20:38)
[2024-07-13] VITALS (13 sets, daily range): BP systolic 100–141; BP diastolic 52–67; PULSE 61–89; RESP 15–20; TEMP 36–36.9; O2SAT 92–100; BMI 15.9
[2024-07-13] MEDS: 0.9 % Sodium Chloride Flush 3 ML SYRINGE IVFLUSH ×3 (00:04→15:36)
--- NOTE | 2024-07-13 03:09 | MHC.EDTECH ---
This tech took over care of patient at 0300AM,patient is sleeping resp,rate WNL,call roland in reach
[2024-07-13 06:57] LABS: Hematocrit 36.9 % (37.0-47.0); Hemoglobin 10.8 g/dl (12.0-16.0); Mean Corpuscular HGB Conc 29.3 g/dl (31.0-35.0); Mean Corpuscular Hemoglobin 27.9 pg (27.0-33.0); Mean Corpuscular Volume 95.3 fL (80.0-98.0); Platelet Count 265 X10*3/uL (160-400); Red Blood Count 3.87 X10*6/uL (4.20-5.50); Red Cell Distribution Width 18.4 % (11.0-16.0); White Blood Count 5.9 X10*3/uL (4.8-10.8)
[2024-07-13 07:33] LABS: Glucose, Whole Blood 162 mg/dL (60-115)
[2024-07-13] MEDS: Insulin Lispro 100 UNIT/ML 3 ML VIAL SUBCUT ×5 (07:55→20:54)
[2024-07-13] MEDS: methylPREDNISolone Sod Succ 40 MG/ML VIAL IVPUSH ×2 (07:57→20:52)
[2024-07-13] MEDS: Cholecalciferol (Vitamin D3) 25 MCG TABLET PO (07:58)
[2024-07-13] MEDS: dilTIAZem HCL 30 MG TABLET PO ×3 (07:58→20:55)
[2024-07-13] MEDS: Multivitamin TABLET 1 TAB PO (07:58)
[2024-07-13] MEDS: Magnesium Oxide 400 MG TABLET PO ×2 (07:58→20:55)
[2024-07-13] MEDS: Aspirin Enteric Coated 81 MG TABLET.DR PO ×2 (07:59→20:55)
[2024-07-13] MEDS: Ascorbic Acid 500 MG TABLET PO (07:59)
[2024-07-13] MEDS: Metoprolol Tartrate 25 MG TABLET PO ×2 (07:59→20:55)
[2024-07-13] MEDS: Albuterol/Iprat 2.5/0.5MG 3 ML AMPUL.NEB INHALE ×4 (07:59→20:32)
[2024-07-13] MEDS: Furosemide 20 MG/2 ML VIAL IVPUSH (08:01)
[2024-07-13 08:23] LABS: Blood Urea Nitrogen 36 mg/dL (9-16); Calcium 8.7 mg/dL (8.4-10.2); Creatinine Clr Calc Pharmacy 42.1; Estimated Glomerular Filt Rate > 60; Glucose Random 171 mg/dL (60-115)
[2024-07-13 08:36] LABS: Anion Gap 12 (12-20); Carbon Dioxide 34 mmol/L (22-29); Chloride 103 mmol/L (96-108); Potassium 5.4 mmol/L (3.3-5.1); Sodium 144 mmol/L (135-145)
[2024-07-13 11:24] LABS: Glucose, Whole Blood 322 mg/dL (60-115)
--- NOTE | 2024-07-13 11:54 | HO.PM.IMPN ---
Subjective Subjective Date of Service: 07/13/24 Interval History: Seen and evaluated this morning Feels little better denies any fever or chills passing in\out conversation no other events overnight Review of Systems Review of Systems: Yes all other systems are reviewed and are negative Physical Exam Vital Signs: Vital Signs: Last Vital Signs Temp 96.8 F 07/13/24 11:52 Pulse 62 07/13/24 11:52 Resp 20 07/13/24 11:52 BP 117/54 L 07/13/24 11:52 Pulse Ox 98 07/13/24 11:52 O2 Del Method Room Air 07/13/24 11:52 O2 Flow Rate 4 07/13/24 07:17 Oxygen Flow Rate 4 07/12/24 10:57 BMI result Body Mass Index 15.9 Const: Other: Constitutional : interactive, not in distress Cardiovascular : no JVP, no lower extremity edema Respiratory : bilateral chest movement, not in resp distress , bilateral expiratory wheezes Gastrointestinal: soft, lax, Non tender Skin : Warm, Dry Neurological : Alert & oriented , No focal deficit Objective Data Active Medications Acetaminophen (Acetaminophen 325 Mg Tablet) 650 mg PO Q6H PRN PRN Reason: Pain, Mild 1-3,fever,headache Albuterol/Ipratropium (Albuterol/Iprat 2.5/0.5mg 3 Ml Ampul.Neb) 3 ml INHALE RQ4H WHILE AWAKE [facility] Last Admin: 07/13/24 11:34 Dose: 3 ml Documented By: PHILIPP Ascorbic Acid (Ascorbic Acid 500 Mg Tablet) 500 mg PO DAILY [facility] Last Admin: 07/13/24 07:59 Dose: 500 mg Documented By: PATRIZIA Aspirin (Aspirin Enteric Coated 81 Mg Tablet.Dr) 81 mg PO BID [facility] Last Admin: 07/13/24 07:59 Dose: 81 mg Documented By: PATRIZIA Calcium Carbonate (Calcium Carbonate 750 Mg Tab.Chew) 750 mg PO Q4H PRN PRN Reason: Heartburn Dextrose (Dextrose 50 % 25 Gm/50 Ml Syringe) 25 gm IVPUSH Q15M PRN; Protocol PRN Reason: per Hypoglycemia Standing Ord. Diltiazem HCl (Diltiazem Hcl 30 Mg Tablet) 30 mg PO TID [facility]; Protocol Last Admin: 07/13/24 07:58 Dose: 30 mg Documented By: PATRIZIA Enoxaparin Sodium (Enoxaparin Sodium 40 Mg/0.4 Ml Syringe) 40 mg SUBCUT Q24H [facility] Last Admin: 07/12/24 20:36 Dose: 40 mg Documented By: ANNA Furosemide (Furosemide 20 Mg/2 Ml Vial) 20 mg IVPUSH DAILY [facility]; Protocol Last Admin: 07/13/24 08:01 Dose: 20 mg Documented By: PATRIZIA Glucose (Glucose Gel 15 Gm Gel..Gram.) 15 gm PO Q15M PRN; Protocol PRN Reason: per Hypoglycemia Standing Ord. Guaifenesin/Dextromethorphan (Guaifenesin Dm 200/20/10 Ml 10 Ml Syrup) 10 ml PO Q4H PRN PRN Reason: Cough Insulin Glargine (Insulin Glargine,Hum.Rec.Anlog 100 Unit/Ml 10 Ml Vial) 6 unit SUBCUT BEDTIME [facility] Last Admin: 07/12/24 20:37 Dose: 6 unit Documented By: ANNA Insulin Human Lispro (Insulin Lispro 100 Unit/Ml 3 Ml Vial) 0 unit SUBCUT QIDACHS [facility]; Protocol Last Admin: 07/13/24 11:49 Dose: 8 unit Documented By: PATRIZIA Magnesium Hydroxide (Milk Of Magnesia 30 Ml Oral.Susp) 30 ml PO DAILY PRN PRN Reason: Constipation Magnesium Oxide (Magnesium Oxide 400 Mg Tablet) 400 mg PO BID [facility] Last Admin: 07/13/24 07:58 Dose: 400 mg Documented By: PATRIZIA Melatonin (Melatonin 3 Mg Tablet) 6 mg PO BEDTIME PRN PRN Reason: Insomnia Methylprednisolone Sodium Succinate (Methylprednisolone Sod Succ 40 Mg/Ml Vial) 40 mg IVPUSH Q12H [facility] Last Admin: 07/13/24 07:57 Dose: 40 mg Documented By: PATRIZIA Metoprolol Tartrate (Metoprolol Tartrate 25 Mg Tablet) 25 mg PO BID [facility]; Protocol Last Admin: 07/13/24 07:59 Dose: 25 mg Documented By: PATRIZIA Multivitamins/Vitamin C (Multivitamin Tablet) 1 tab PO DAILY [facility] Last Admin: 07/13/24 07:58 Dose: 1 tab Documented By: PATRIZIA Ondansetron HCl (Ondansetron Hcl 4 Mg/2 Ml Vial) 4 mg IVPUSH Q8H PRN PRN Reason: Nausea and Vomiting Sodium Chloride (0.9 % Sodium Chloride Flush 3 Ml Syringe) 3 ml IVFLUSH QSHIFT [facility] Last Admin: 07/13/24 07:56 Dose: 3 ml Documented By: PATRIZIA Vitamin D (Cholecalciferol (Vitamin D3) 25 Mcg Tablet) 25 mcg PO DAILY [facility] Last Admin: 07/13/24 07:58 Dose: 25 mcg Documented By: PATRIZIA Labs 07/13/24 06:25 07/13/24 06:25 Labs: Laboratory Results - last 24 hr 07/12/24 07/12/24 07/12/24 11:40 12:42 14:25 MCV 94.0 MCH 27.6 MCHC 29.4 L RDW 18.5 H Plt Count 287 D MPV 9.1 L Immature Gran % (Auto) 0.5 H Neut % (Auto) 83.3 H Lymph % (Auto) 6.2 L [place] % (Auto) 9.0 Eos % (Auto) 0.5 Baso % (Auto) 0.5 Lymph # (Auto) 0.4 L [place] # (Auto) 0.6 Eos # (Auto) 0.0 Baso # (Auto) 0.0 Abs Immat Gran (auto) 0.03 Absolute Neuts (auto) 5.3 Absolute Nucleated RBC 0.000 Nucleated RBC % (auto) 0.0 PT 11.6 INR 1.0 APTT 24.5 L D-Dimer High Sensitivty 752 Anion Gap 7 L Estim Creat Clear Calc 49.4 Estimated GFR > 60 POC Glucose Random Glucose 236 H Lactic Acid 1.4 Calcium 8.6 D Total Bilirubin 0.2 AST 26 ALT 48 H Alkaline Phosphatase 187 H B-Natriuretic Peptide Total Protein 7.1 Albumin 2.8 L Influenza Type A (PCR) NEGATIVE Influenza Type B (PCR) NEGATIVE RSV RNA Qual (PCR) POSITIVE A SARS-CoV-2 RNA (RT-PCR) NEGATIVE 07/12/24 07/13/24 07/13/24 20:10 06:25 07:20 MCV 95.3 MCH 27.9 MCHC 29.3 L RDW 18.4 H Plt Count 265 MPV 9.0 L Immature Gran % (Auto) Neut % (Auto) Lymph % (Auto) [place] % (Auto) Eos % (Auto) Baso % (Auto) Lymph # (Auto) [place] # (Auto) Eos # (Auto) Baso # (Auto) Abs Immat Gran (auto) Absolute Neuts (auto) Absolute Nucleated RBC 0.000 Nucleated RBC % (auto) 0.0 PT INR APTT D-Dimer High Sensitivty Anion Gap 12 Estim Creat Clear Calc 42.1 Estimated GFR > 60 POC Glucose 162 H Random Glucose 171 H Lactic Acid Calcium 8.7 Total Bilirubin AST ALT Alkaline Phosphatase B-Natriuretic Peptide 1019 H Total Protein Albumin Influenza Type A (PCR) Influenza Type B (PCR) RSV RNA Qual (PCR) SARS-CoV-2 RNA (RT-PCR) 07/13/24 11:20 MCV MCH MCHC RDW Plt Count MPV Immature Gran % (Auto) Neut % (Auto) Lymph % (Auto) [place] % (Auto) Eos % (Auto) Baso % (Auto) Lymph # (Auto) [place] # (Auto) Eos # (Auto) Baso # (Auto) Abs Immat Gran (auto) Absolute Neuts (auto) Absolute Nucleated RBC Nucleated RBC % (auto) PT INR APTT D-Dimer High Sensitivty Anion Gap Estim Creat Clear Calc Estimated GFR POC Glucose 322 H Random Glucose Lactic Acid Calcium Total Bilirubin AST ALT Alkaline Phosphatase B-Natriuretic Peptide Total Protein Albumin Influenza Type A (PCR) Influenza Type B (PCR) RSV RNA Qual (PCR) SARS-CoV-2 RNA (RT-PCR) Assessment and Plan (1) COPD exacerbation: Status: Acute (2) Acute on chronic hypoxic respiratory failure: Status: Acute (3) Respiratory syncytial virus (RSV): Status: Acute (4) Acute hyperkalemia: Status: Acute Plan Pt is a 78-year-old female with a PMH significant for?COPD on 2L home O2, insulin-dependent type 2 diabetes, hx of SVT, GERD, and recent left tibial plateau fracture who presents to the ED from home after VNA noted her to have increased work of breathing and pt was desatting to the mid 60s on home O2. Pt will be admitted to the hospital for treatment and further evaluation of acute on chronic hypoxic respiratory failure in the setting of RSV infection with concomitant COPD exacerbation. Acute on chronic hypoxic respiratory failure in the setting of RSV infection and COPD exacerbation improving CTA negative for pulmonary emboli or consolidation/pneumonia Continue Solu-Medrol, DuoNebs, and guaifenesin Titrate supplemental O2 >90, pt on 2L home O2, wean as tolerated ABG\VBG if altered Monitor respiratory status Acute on chronic diastolic CHF Lasix 20mg IV daily Elevated BNP Follow BMP and electrolytes Acute hyperkalemia Lokelma, follow BMP Left proximal femur fracture Secondary to fall at home 06/24/2024 Returned from rehab a few days ago Repeat imaging shows stable fracture Hx of SVT Continue diltiazem, metoprolol Insulin-dependent type 2 diabetes Sliding-scale insulin, Lantus Diabetic diet Full Code DVT Prophylaxis: Lovenox Pt will require overnight stay for treatment of?acute on chronic hypoxic respiratory failure in the setting of RSV infection with concomitant COPD exacerbation. Given patient's level of hypoxia, they will require hospital level care for administration of supplemental oxygen, IV steroids, breathing treatments, as well as IV diuretics for pleural effusions and pulmonary edema. Quality Stroke Does the patient have a stroke diagnosis?: No VTE Prior VTE?: No VTE Risk Level:: Medical - moderate - high VTE Device Contraindication: Treatment Not Indicated VTE Drug Contraindication: N/A - Med Ordered
[2024-07-13] MEDS: Sodium Zirconium Cyclosilicate 5 GM POWD.PACK PO (13:20)
[2024-07-13 13:34] LABS: Venous Blood Gas Refer to POC result
[2024-07-13 13:35] LABS: VBG Base Excess 12.4 mmol/L; VBG HCO3 37 mmol/L (22-26); VBG pCO2 47 mmHg; VBG pH 7.49 (7.32-7.43); VBG pO2 50 mmHg
--- NOTE | 2024-07-13 14:37 | MHC.CM.PN ---
IMM delivered. Patient lives in a home w/ . Uses a walker PRN. Has home O2 - [employer] is supplier. Recent stay @ [facility]. PCP Hunter Treviño NP HCP & MOLST on file and verified. DP: PT rec [facility] choice. If they are unable to offer, patient would like another facility in [place]. Referrals out, awaiting response. CM will continue to follow.
[2024-07-13 16:19] LABS: Glucose, Whole Blood 434 mg/dL (60-115)
[2024-07-13 20:17] LABS: Glucose, Whole Blood 402 mg/dL (60-115)
[2024-07-13] MEDS: Enoxaparin Sodium 40 MG/0.4 ML SYRINGE SUBCUT (20:55)
[2024-07-13 23:58] LABS: Glucose, Whole Blood 234 mg/dL (60-115)
[2024-07-14] VITALS (9 sets, daily range): BP systolic 102–140; BP diastolic 56–68; PULSE 60–85; RESP 16–18; TEMP 36.3–36.8; O2SAT 92–98; BMI 16.9
[2024-07-14] MEDS: 0.9 % Sodium Chloride Flush 3 ML SYRINGE IVFLUSH ×4 (00:18→23:23)
[2024-07-14 06:13] LABS: Glucose, Whole Blood 231 mg/dL (60-115)
[2024-07-14 06:46] LABS: Basophils Percent Auto 0.1 % (0-2); Hematocrit 31.7 % (37.0-47.0); Hemoglobin 9.4 g/dl (12.0-16.0); Imm Gran Abs Auto 0.03 X10*3/uL (0.00-0.03); Imm Gran Pct Auto 0.4 % (0.0-0.4); Lymphocytes Absolute Auto 0.3 X10*3/uL (1.2-4.9); Lymphocytes Percent Auto 4.4 % (20-40); MANUAL DIFF FLAG SCAN; Mean Corpuscular HGB Conc 29.7 g/dl (31.0-35.0); Mean Corpuscular Hemoglobin 27.7 pg (27.0-33.0); Mean Corpuscular Volume 93.5 fL (80.0-98.0); Mean Platelet Volume 9.9 fL (9.4-12.3); Monocytes Absolute Auto 0.1 X10*3/uL (0.1-1.2); Monocytes Percent Auto 1.7 % (2-11); Neutrophils Absolute Auto 6.5 x10*3/uL (2.0-8.3); Neutrophils Percent Auto 93.4 % (45-73); Platelet Count 220 X10*3/uL (160-400); Red Blood Count 3.39 X10*6/uL (4.20-5.50); Red Cell Distribution Width 17.9 % (11.0-16.0); SCAN SMEAR FLAG 1
[2024-07-14 07:07] LABS: SLIDE REVIEW VERIFIED
[2024-07-14 07:08] LABS: Anion Gap 12 (12-20); Blood Urea Nitrogen 44 mg/dL (9-16); Calcium 8.5 mg/dL (8.4-10.2); Carbon Dioxide 33 mmol/L (22-29); Chloride 98 mmol/L (96-108); Estimated Glomerular Filt Rate > 60; Glucose Random 258 mg/dL (60-115); Potassium 4.6 mmol/L (3.3-5.1); Sodium 138 mmol/L (135-145)
[2024-07-14 07:09] LABS: Anion Gap 13 (12-20); Blood Urea Nitrogen 47 mg/dL (9-16); Calcium 8.5 mg/dL (8.4-10.2); Carbon Dioxide 33 mmol/L (22-29); Chloride 98 mmol/L (96-108); Creatinine Clr Calc Pharmacy 42.6; Estimated Glomerular Filt Rate > 60; Glucose Random 259 mg/dL (60-115); Potassium 4.6 mmol/L (3.3-5.1); Sodium 139 mmol/L (135-145)
[2024-07-14 07:14] LABS: Glucose, Whole Blood 239 mg/dL (60-115)
[2024-07-14] MEDS: Insulin Lispro 100 UNIT/ML 3 ML VIAL SUBCUT ×5 (08:17→20:58)
[2024-07-14] MEDS: Ascorbic Acid 500 MG TABLET PO (08:18)
[2024-07-14] MEDS: Multivitamin TABLET 1 TAB PO (08:18)
[2024-07-14] MEDS: Cholecalciferol (Vitamin D3) 25 MCG TABLET PO (08:18)
[2024-07-14] MEDS: Furosemide 20 MG/2 ML VIAL IVPUSH (08:18)
[2024-07-14] MEDS: methylPREDNISolone Sod Succ 40 MG/ML VIAL IVPUSH (08:18)
[2024-07-14] MEDS: Metoprolol Tartrate 25 MG TABLET PO ×2 (08:19→20:58)
[2024-07-14] MEDS: Aspirin Enteric Coated 81 MG TABLET.DR PO (08:19)
[2024-07-14] MEDS: dilTIAZem HCL 30 MG TABLET PO ×3 (08:19→20:58)
[2024-07-14] MEDS: Magnesium Oxide 400 MG TABLET PO ×2 (08:19→20:58)
--- NOTE | 2024-07-14 11:09 | P.PNIM_ITS ---
Subjective Subjective Date of Service: 07/14/24 Interval History: Seen and evaluated this morning Feels little better, more alert and interactive denies any fever or chills no other events overnight Review of Systems Review of Systems: Yes all other systems are reviewed and are negative Physical Exam 2 Vital Signs: Vital Signs: Last Vital Signs Temp 97.8 F 07/14/24 06:58 Pulse 64 07/14/24 06:58 Resp 16 07/14/24 06:58 BP 140/63 H 07/14/24 06:58 Pulse Ox 97 07/14/24 06:58 O2 Del Method Nasal Cannula 07/14/24 06:58 O2 Flow Rate 4 07/14/24 06:58 Oxygen Flow Rate 4 07/12/24 10:57 BMI result Body Mass Index 16.9 Const: Other: Constitutional : interactive, not in distress Cardiovascular : no JVP, no lower extremity edema Respiratory : bilateral chest movement, not in resp distress , bilateral expiratory wheezes Gastrointestinal: soft, lax, Non tender Skin : Warm, Dry Neurological : Alert & oriented , No focal deficit Objective Data Active Medications Acetaminophen (Acetaminophen 325 Mg Tablet) 650 mg PO Q6H PRN PRN Reason: Pain, Mild 1-3,fever,headache Albuterol/Ipratropium (Albuterol/Iprat 2.5/0.5mg 3 Ml Ampul.Neb) 3 ml INHALE RQ4H WHILE AWAKE [facility] Last Admin: 07/14/24 08:25 Dose: Not Given Documented By: HECTOR Non-Admin Reason: attempted to give x3. pt not cooperating Ascorbic Acid (Ascorbic Acid 500 Mg Tablet) 500 mg PO DAILY [facility] Last Admin: 07/14/24 08:18 Dose: 500 mg Documented By: PATRIZIA Aspirin (Aspirin Enteric Coated 81 Mg Tablet.Dr) 81 mg PO BID [facility] Last Admin: 07/14/24 08:19 Dose: 81 mg Documented By: PATRIZIA Calcium Carbonate (Calcium Carbonate 750 Mg Tab.Chew) 750 mg PO Q4H PRN PRN Reason: Heartburn Dextrose (Dextrose 50 % 25 Gm/50 Ml Syringe) 25 gm IVPUSH Q15M PRN; Protocol PRN Reason: per Hypoglycemia Standing Ord. Diltiazem HCl (Diltiazem Hcl 30 Mg Tablet) 30 mg PO TID [facility]; Protocol Last Admin: 07/14/24 08:19 Dose: 30 mg Documented By: PATRIZIA Enoxaparin Sodium (Enoxaparin Sodium 40 Mg/0.4 Ml Syringe) 40 mg SUBCUT Q24H [facility] Last Admin: 07/13/24 20:55 Dose: 40 mg Documented By: JACK Furosemide (Furosemide 20 Mg/2 Ml Vial) 20 mg IVPUSH DAILY [facility]; Protocol Last Admin: 07/14/24 08:18 Dose: 20 mg Documented By: PATRIZIA Glucose (Glucose Gel 15 Gm Gel..Gram.) 15 gm PO Q15M PRN; Protocol PRN Reason: per Hypoglycemia Standing Ord. Guaifenesin/Dextromethorphan (Guaifenesin Dm 200/20/10 Ml 10 Ml Syrup) 10 ml PO Q4H PRN PRN Reason: Cough Insulin Glargine (Insulin Glargine,Hum.Rec.Anlog 100 Unit/Ml 10 Ml Vial) 10 unit SUBCUT DAILY@1100 [facility] Insulin Human Lispro (Insulin Lispro 100 Unit/Ml 3 Ml Vial) 0 unit SUBCUT QIDACHS [facility]; Protocol Last Admin: 07/14/24 08:17 Dose: 4 unit Documented By: PATRIZIA Magnesium Hydroxide (Milk Of Magnesia 30 Ml Oral.Susp) 30 ml PO DAILY PRN PRN Reason: Constipation Magnesium Oxide (Magnesium Oxide 400 Mg Tablet) 400 mg PO BID [facility] Last Admin: 07/14/24 08:19 Dose: 400 mg Documented By: PATRIZIA Melatonin (Melatonin 3 Mg Tablet) 6 mg PO BEDTIME PRN PRN Reason: Insomnia Metoprolol Tartrate (Metoprolol Tartrate 25 Mg Tablet) 25 mg PO BID [facility]; Protocol Last Admin: 07/14/24 08:19 Dose: 25 mg Documented By: PATRIZIA Multivitamins/Vitamin C (Multivitamin Tablet) 1 tab PO DAILY [facility] Last Admin: 07/14/24 08:18 Dose: 1 tab Documented By: PATRIZIA Ondansetron HCl (Ondansetron Hcl 4 Mg/2 Ml Vial) 4 mg IVPUSH Q8H PRN PRN Reason: Nausea and Vomiting Prednisone (Prednisone 20 Mg Tablet) 40 mg PO DAILY [facility] Sodium Chloride (0.9 % Sodium Chloride Flush 3 Ml Syringe) 3 ml IVFLUSH QSHIFT [facility] Last Admin: 07/14/24 08:17 Dose: 3 ml Documented By: PATRIZIA Vitamin D (Cholecalciferol (Vitamin D3) 25 Mcg Tablet) 25 mcg PO DAILY [facility] Last Admin: 07/14/24 08:18 Dose: 25 mcg Documented By: PATRIZIA Labs 07/14/24 06:02 07/14/24 06:02 Labs: Laboratory Results - last 24 hr 07/13/24 07/13/24 07/13/24 11:20 13:28 16:15 MCV MCH MCHC RDW Plt Count MPV Immature Gran % (Auto) Neut % (Auto) Lymph % (Auto) [place] % (Auto) Eos % (Auto) Baso % (Auto) Lymph # (Auto) [place] # (Auto) Eos # (Auto) Baso # (Auto) Abs Immat Gran (auto) Absolute Neuts (auto) Absolute Nucleated RBC Nucleated RBC % (auto) Smear Tech's Comments VBG pH 7.49 H VBG pCO2 47 VBG pO2 50 VBG HCO3 37 H VBG O2 Saturation 89.0 VBG Base Excess 12.4 Anion Gap Estim Creat Clear Calc Estimated GFR POC Glucose 322 H 434 H* Random Glucose Calcium 07/13/24 07/13/24 07/14/24 20:10 23:51 06:02 MCV 93.5 MCH 27.7 MCHC 29.7 L RDW 17.9 H Plt Count 220 MPV 9.9 Immature Gran % (Auto) 0.4 Neut % (Auto) 93.4 H Lymph % (Auto) 4.4 L [place] % (Auto) 1.7 L Eos % (Auto) 0.0 Baso % (Auto) 0.1 Lymph # (Auto) 0.3 L [place] # (Auto) 0.1 Eos # (Auto) 0.0 Baso # (Auto) 0.0 Abs Immat Gran (auto) 0.03 Absolute Neuts (auto) 6.5 Absolute Nucleated RBC 0.000 Nucleated RBC % (auto) 0.0 Smear Tech's Comments VERIFIED VBG pH VBG pCO2 VBG pO2 VBG HCO3 VBG O2 Saturation VBG Base Excess Anion Gap 13 Estim Creat Clear Calc Estimated GFR POC Glucose 402 H* 234 H Random Glucose Calcium 07/14/24 07/14/24 07/14/24 06:02 06:02 06:02 MCV MCH MCHC RDW Plt Count MPV Immature Gran % (Auto) Neut % (Auto) Lymph % (Auto) [place] % (Auto) Eos % (Auto) Baso % (Auto) Lymph # (Auto) [place] # (Auto) Eos # (Auto) Baso # (Auto) Abs Immat Gran (auto) Absolute Neuts (auto) Absolute Nucleated RBC Nucleated RBC % (auto) Smear Tech's Comments VBG pH VBG pCO2 VBG pO2 VBG HCO3 VBG O2 Saturation VBG Base Excess Anion Gap 12 Estim Creat Clear Calc 42.6 42.0 Estimated GFR > 60 > 60 POC Glucose Random Glucose 259 H Calcium 07/14/24 07/14/24 07/14/24 06:02 06:02 06:07 MCV MCH MCHC RDW Plt Count MPV Immature Gran % (Auto) Neut % (Auto) Lymph % (Auto) [place] % (Auto) Eos % (Auto) Baso % (Auto) Lymph # (Auto) [place] # (Auto) Eos # (Auto) Baso # (Auto) Abs Immat Gran (auto) Absolute Neuts (auto) Absolute Nucleated RBC Nucleated RBC % (auto) Smear Tech's Comments VBG pH VBG pCO2 VBG pO2 VBG HCO3 VBG O2 Saturation VBG Base Excess Anion Gap Estim Creat Clear Calc Estimated GFR POC Glucose 231 H Random Glucose 258 H Calcium 8.5 8.5 07/14/24 07:00 MCV MCH MCHC RDW Plt Count MPV Immature Gran % (Auto) Neut % (Auto) Lymph % (Auto) [place] % (Auto) Eos % (Auto) Baso % (Auto) Lymph # (Auto) [place] # (Auto) Eos # (Auto) Baso # (Auto) Abs Immat Gran (auto) Absolute Neuts (auto) Absolute Nucleated RBC Nucleated RBC % (auto) Smear Tech's Comments VBG pH VBG pCO2 VBG pO2 VBG HCO3 VBG O2 Saturation VBG Base Excess Anion Gap Estim Creat Clear Calc Estimated GFR POC Glucose 239 H Random Glucose Calcium Microbiology Microbiology Results: Microbiology 07/12/24 12:42 Blood Culture - Preliminary Blood - Venous No growth after 24 hours. 07/12/24 12:42 Blood Culture - Preliminary Blood - Venous No growth after 24 hours. Assessment and Plan (1) Acute hyperkalemia: Status: Acute (2) COPD exacerbation: Status: Acute (3) Respiratory syncytial virus (RSV): Status: Acute (4) Acute on chronic hypoxic respiratory failure: Status: Acute Plan Pt is a 78-year-old female with a PMH significant for?COPD on 2L home O2, insulin-dependent type 2 diabetes, hx of SVT, GERD, and recent left tibial plateau fracture who presents to the ED from home after VNA noted her to have increased work of breathing and pt was desatting to the mid 60s on home O2. Pt will be admitted to the hospital for treatment and further evaluation of acute on chronic hypoxic respiratory failure in the setting of RSV infection with concomitant COPD exacerbation. Acute on chronic hypoxic respiratory failure in the setting of RSV infection and COPD exacerbation improving CTA negative for pulmonary emboli or consolidation/pneumonia Continue Solu-Medrol, DuoNebs, and guaifenesin Patient on 2L home O2, wean as tolerated Monitor respiratory status PT evaluation Acute on chronic diastolic CHF Lasix 20mg IV daily Follow BMP and electrolytes Acute hyperkalemia Lokelma, follow BMP Left proximal femur fracture Secondary to fall at home 06/24/2024 Returned from rehab a few days ago Repeat imaging shows stable fracture Hx of SVT Continue diltiazem, metoprolol Insulin-dependent type 2 diabetes Sliding-scale insulin, Lantus Diabetic diet Full Code DVT Prophylaxis: Lovenox Pt will require overnight stay for treatment of?acute on chronic hypoxic respiratory failure in the setting of RSV infection with concomitant COPD exacerbation. Given patient's level of hypoxia, they will require hospital level care for administration of supplemental oxygen, IV steroids, breathing treatments, as well as IV diuretics for pleural effusions and pulmonary edema. Quality Stroke Does the patient have a stroke diagnosis?: No VTE Prior VTE?: No VTE Risk Level:: Medical - moderate - high VTE Device Contraindication: Treatment Not Indicated VTE Drug Contraindication: N/A - Med Ordered
[2024-07-14 11:15] LABS: Glucose, Whole Blood 411 mg/dL (60-115)
[2024-07-14] MEDS: Insulin Glargine,Hum.rec.anlog 100 UNIT/ML 10 ML VIAL 10 UNIT SUBCUT (11:43)
[2024-07-14] MEDS: Albuterol/Iprat 2.5/0.5MG 3 ML AMPUL.NEB INHALE ×3 (12:28→20:38)
[2024-07-14 16:26] LABS: Glucose, Whole Blood 342 mg/dL (60-115)
[2024-07-14 20:24] LABS: Glucose, Whole Blood 402 mg/dL (60-115)
[2024-07-14] MEDS: Enoxaparin Sodium 40 MG/0.4 ML SYRINGE SUBCUT (20:59)
[2024-07-15] VITALS (12 sets, daily range): BP systolic 121–147; BP diastolic 59–71; PULSE 67–85; RESP 16–18; TEMP 36.3–37.2; O2SAT 90–98; BMI 16.9
[2024-07-15 05:55] LABS: Anion Gap 10 (12-20); Blood Urea Nitrogen 45 mg/dL (9-16); Calcium 8.3 mg/dL (8.4-10.2); Carbon Dioxide 38 mmol/L (22-29); Chloride 96 mmol/L (96-108); Creatinine Clr Calc Pharmacy 33.7; Estimated Glomerular Filt Rate 56; Glucose Random 304 mg/dL (60-115); Potassium 4.6 mmol/L (3.3-5.1); Sodium 139 mmol/L (135-145)
--- NOTE | 2024-07-15 07:00 | CA_ITS ---
Transthoracic Echocardiogram Patient (Last, First, Middle): Anu Stephens A Gender: Female Date of : 1945 Age: 78 Procedure Date: 07/15/2024 Procedure Type: Transthoracic Echocardiogram Location: S3E Height: 160.02 cm Weight: 40.37 kg BSA: 1.37 m2 Heart Rate: 82 bpm BP: 109 / 54 mmHg Continuing Education Dean: DEDE Alicea MD: Madeline INGRAM Shell Sorter: Bong Dolan MD Symptoms: Elevated BNP, LLE, pleural effusions Study Quality: Fair ECG Rhythm: Sinus Conclusions: - 1. Normal LV ejection fraction of 65-70% 2. [id number] mitral regurgitation 3. Moderately elevated right ventricular systolic pressure 4. No gross pericardial effusion Findings Left Ventricle Normal left ventricular size, thickness, and systolic function. The visually estimated ejection fraction is between 65-70%. Spectral Doppler is indicative of a normal filling pattern. Right Ventricle Normal right ventricular cavity size and systolic function. Atria Both atria are normal in size. There is no evidence of interatrial shunt. Aortic Valve Normal aortic valve structure and function. There is no aortic valve stenosis. There is no aortic valve regurgitation. Mitral Valve There is mild posterior mitral leaflet thickening. There is bowing of the posterior mitral leaflet without obvious prolapse. There is mild to moderate mitral valve regurgitation. There is no mitral valve stenosis. Pulmonic Valve The pulmonic valve was not well visualized. Tricuspid Valve Normal tricuspid valve structure. There is mild tricuspid valve regurgitation. Normal right atrial pressure. Moderate pulmonary hypertension is present. Great Vessels All visible segments of the aorta are normal in size. The pulmonary artery was not well visualized. There is no dilatation of the ascending aorta measuring 3.30 cm. Venous The inferior vena cava is normal in size and collapses greater than 50% with inspiration. There is evidence of a dilated coronary sinus. Pericardium/Pleural There is no evidence of pericardial effusion. There is a left sided pleural effusion. Measurements 2D Linear Measurements IVSd: 0.97 0.6-0.9/0.6-1.0 cm LVIDd: 3.69 3.9-5.3/4.2-5.9 cm LVIDd Index: 2.69 2.4-3.2/2.2-3.1 cm/m2 LVIDs: 2.31 2.0-3.6 cm LVPWd: 1.00 0.7-1.1 cm LA Diam: 2.30 2.7-3.8/3.0-4.0 cm LAIDs Index: 1.68 1.5-2.3 cm/m2 LV Mass: 140.96 67-162/88-224 g LV Mass Index: 102.89 43-95/49-115 g/m2 LVOT Diam: 1.70 3.0+(-)1.3 cm 2D Systolic Function EF 4C: 70.90 >55% EF 2C: 67.00 >55% EF BiP: 69.40 >55% Mitral Valve MV Pk E: 0.87 MV PK A: 0.79 MV Decel Time: 174.00 E/A: 1.10 E'Lateral: 6.03 E'Medial: 6.03 E/E' Med: 14.40 E/E' Lat: 14.40 PHT: 51.00 MVA PHT: 4.31 Decel Morrison: 4.99 Aortic Valve AoV Pk Lawrence: 1.12 AoV Pk Grad: 5.00 GAB: 1.88 LVOT LVOT Pk Lawrence: 0.90 LVOT Mn Lawrence: 0.60 LVOT VTI: 0.19 LVOT Pk Grad: 3.00 LVOT Mn Grad: 2.00 LVOT Diam: 1.70 LVOT Area: 2.27 Diastolic Function MV Pk E: 0.87 MV Pk A: 0.79 E/A: 1.10 E'Medial: 6.03 E/E' Med: 14.40 E' Laterial: 6.03 E/E' Lat: 14.40 Right Ventricle TAPSE (mm): 21.60 TVS' Lawrence: 14.60 Tricuspid Valve TR Pk Lawrence: 3.34 TR Pk Grad: 45.00 RA Press: 3.00 RVSP: 48.00 Great Vessels Aorta Sinus of Valsalva: 3.50 2.0-3.5 cm Ao Asc: 3.30 2.1-3.4 cm Pulmonary Valve PV Pk Lawrence: 0.70 Peak PV Grad: 2.00 Updated in Other Vendor System with Status of Final Bong Dolan MD electronically signed on 07/15/2024 11:47:33 AM with status of Final
[2024-07-15 07:32] LABS: Glucose, Whole Blood 273 mg/dL (60-115)
[2024-07-15] MEDS: Insulin Lispro 100 UNIT/ML 3 ML VIAL SUBCUT ×4 (08:07→21:09)
[2024-07-15] MEDS: Furosemide 20 MG/2 ML VIAL IVPUSH (08:08)
[2024-07-15] MEDS: 0.9 % Sodium Chloride Flush 3 ML SYRINGE IVFLUSH ×3 (08:10→19:57)
[2024-07-15] MEDS: Albuterol/Iprat 2.5/0.5MG 3 ML AMPUL.NEB INHALE ×4 (08:45→19:18)
--- NOTE | 2024-07-15 10:42 | MHC.CM.PN ---
Addendum entered by Jia Sol 07/15/24 12:13: Rosa Miranda has declined the patient for STR. PT worked with the patient today. The documentation is still pending. Original Note: IMM 07/13/24 Per MD rounds patient is ready to discharge today. PT recommends STR. Brittany Miranda is 1st choice. A clinical update has been sent. The STR is reviewing the EMR. DP STR via BLS.
[2024-07-15 11:06] LABS: Glucose, Whole Blood 238 mg/dL (60-115)
[2024-07-15] MEDS: dilTIAZem HCL 30 MG TABLET PO ×3 (11:21→19:56)
[2024-07-15] MEDS: Cholecalciferol (Vitamin D3) 25 MCG TABLET PO (11:21)
[2024-07-15] MEDS: Milk of Magnesia 30 ML ORAL.SUSP PO (11:21)
[2024-07-15] MEDS: Aspirin Enteric Coated 81 MG TABLET.DR PO ×2 (11:21→19:57)
[2024-07-15] MEDS: Ascorbic Acid 500 MG TABLET PO (11:22)
[2024-07-15] MEDS: Multivitamin TABLET 1 TAB PO (11:22)
[2024-07-15] MEDS: predniSONE 20 MG TABLET 40 MG PO (11:22)
[2024-07-15] MEDS: Metoprolol Tartrate 25 MG TABLET PO ×2 (11:22→19:56)
[2024-07-15] MEDS: Magnesium Oxide 400 MG TABLET PO ×2 (11:22→19:57)
--- NOTE | 2024-07-15 11:56 | MHC.CLN ---
NUTRITION CONSULT FOR UNDERWEIGHT AND PI. DIET=DIABETIC 2000 KCALS-APPROPRIATE. SKIN WITH REDNESS TO COCCYX, NO OPEN AREAS. ASKED PATIENT IF SHE WOULD LIKE SUPPLEMENT AND DECLINED. CURRENT NUTRITION DX NON SEVERE, MODERATE, MALNUTRITION IN THE CONTEXT OF CHRONIC ILLNESS. BMI=16.9 AND IS 83% IBW. FOLLOW FOR PO INTAKE AND SKIN INTEGRITY. SEE CLINICAL NUTRITION ASSESSMENT 07/15/24.
[2024-07-15] MEDS: Insulin Glargine,Hum.rec.anlog 100 UNIT/ML 10 ML VIAL 14 UNIT SUBCUT (13:08)
--- NOTE | 2024-07-15 15:25 | HO.PM.IMPN ---
Subjective Subjective Date of Service: 07/15/24 Interval History: Seen and evaluated this morning Feels much better, breathing improved, weak overall more alert and interactive denies any fever or chills no other events overnight Review of Systems Review of Systems: Yes all other systems are reviewed and are negative Physical Exam Vital Signs: Vital Signs: Last Vital Signs Temp 97.4 F 07/15/24 15:15 Pulse 71 07/15/24 15:15 Resp 16 07/15/24 15:15 BP 132/60 07/15/24 15:15 Pulse Ox 96 07/15/24 15:15 O2 Del Method Nasal Cannula 07/15/24 15:15 O2 Flow Rate 3 07/15/24 15:15 Oxygen Flow Rate 4 07/12/24 10:57 BMI result Body Mass Index 16.9 Const: Other: Constitutional : interactive, not in distress Cardiovascular : no JVP, no lower extremity edema Respiratory : bilateral chest movement, not in resp distress , scattered bilateral expiratory wheezes on 3L O2 Gastrointestinal: soft, lax, Non tender Skin : Warm, Dry Neurological : Alert & oriented , No focal deficit Objective Data Active Medications Acetaminophen (Acetaminophen 325 Mg Tablet) 650 mg PO Q6H PRN PRN Reason: Pain, Mild 1-3,fever,headache Albuterol/Ipratropium (Albuterol/Iprat 2.5/0.5mg 3 Ml Ampul.Neb) 3 ml INHALE RQ4H WHILE AWAKE [facility] Last Admin: 07/15/24 12:49 Dose: 3 ml Documented By: TAMIKA Artificial Tears (Artificial Tears 15 Ml Drops) 2 drop EYE-BOTH Q4H PRN PRN Reason: Dry Eyes Ascorbic Acid (Ascorbic Acid 500 Mg Tablet) 500 mg PO DAILY [facility] Last Admin: 07/15/24 11:22 Dose: 500 mg Documented By: ADELA Aspirin (Aspirin Enteric Coated 81 Mg Tablet.Dr) 81 mg PO BID [facility] Last Admin: 07/15/24 11:21 Dose: 81 mg Documented By: ADELA Calcium Carbonate (Calcium Carbonate 750 Mg Tab.Chew) 750 mg PO Q4H PRN PRN Reason: Heartburn Dextrose (Dextrose 50 % 25 Gm/50 Ml Syringe) 25 gm IVPUSH Q15M PRN; Protocol PRN Reason: per Hypoglycemia Standing Ord. Diltiazem HCl (Diltiazem Hcl 30 Mg Tablet) 30 mg PO TID [facility]; Protocol Last Admin: 07/15/24 11:21 Dose: 30 mg Documented By: ADELA Enoxaparin Sodium (Enoxaparin Sodium 40 Mg/0.4 Ml Syringe) 40 mg SUBCUT Q24H [facility] Last Admin: 07/14/24 20:59 Dose: 40 mg Documented By: ERIC Furosemide (Furosemide 20 Mg/2 Ml Vial) 20 mg IVPUSH DAILY [facility]; Protocol Last Admin: 07/15/24 08:08 Dose: 20 mg Documented By: ADELA Glucose (Glucose Gel 15 Gm Gel..Gram.) 15 gm PO Q15M PRN; Protocol PRN Reason: per Hypoglycemia Standing Ord. Guaifenesin/Dextromethorphan (Guaifenesin Dm 200/20/10 Ml 10 Ml Syrup) 10 ml PO Q4H PRN PRN Reason: Cough Insulin Glargine (Insulin Glargine,Hum.Rec.Anlog 100 Unit/Ml 10 Ml Vial) 14 unit SUBCUT DAILY@1100 [facility] Last Admin: 07/15/24 13:08 Dose: 10 unit Documented By: ADELA Comments: Given per patient request. Dr. Dominguez aware. Insulin Human Lispro (Insulin Lispro 100 Unit/Ml 3 Ml Vial) 0 unit SUBCUT QIDACHS [facility]; Protocol Last Admin: 07/15/24 12:20 Dose: 4 unit Documented By: ADELA Magnesium Hydroxide (Milk Of Magnesia 30 Ml Oral.Susp) 30 ml PO DAILY PRN PRN Reason: Constipation Last Admin: 07/15/24 11:21 Dose: 15 ml Documented By: ADELA Comments: Given 1/2 dose per patient request. Magnesium Oxide (Magnesium Oxide 400 Mg Tablet) 400 mg PO BID [facility] Last Admin: 07/15/24 11:22 Dose: 400 mg Documented By: ADELA Melatonin (Melatonin 3 Mg Tablet) 6 mg PO BEDTIME PRN PRN Reason: Insomnia Metoprolol Tartrate (Metoprolol Tartrate 25 Mg Tablet) 25 mg PO BID [facility]; Protocol Last Admin: 07/15/24 11:22 Dose: 25 mg Documented By: ADELA Multivitamins/Vitamin C (Multivitamin Tablet) 1 tab PO DAILY [facility] Last Admin: 07/15/24 11:22 Dose: 1 tab Documented By: ADELA Ondansetron HCl (Ondansetron Hcl 4 Mg/2 Ml Vial) 4 mg IVPUSH Q8H PRN PRN Reason: Nausea and Vomiting Prednisone (Prednisone 20 Mg Tablet) 40 mg PO DAILY [facility] Last Admin: 07/15/24 11:22 Dose: 40 mg Documented By: ADELA Sodium Chloride (0.9 % Sodium Chloride Flush 3 Ml Syringe) 3 ml IVFLUSH QSHIFT [facility] Last Admin: 07/15/24 08:10 Dose: 3 ml Documented By: ADELA Vitamin D (Cholecalciferol (Vitamin D3) 25 Mcg Tablet) 25 mcg PO DAILY [facility] Last Admin: 07/15/24 11:21 Dose: 25 mcg Documented By: ADELA Labs 07/14/24 06:02 07/15/24 05:07 Labs: Laboratory Results - last 24 hr 07/12/24 07/12/24 07/12/24 11:40 11:47 12:42 MCV 94.0 MCH 27.6 MCHC 29.4 L RDW 18.5 H Plt Count 287 D MPV 9.1 L Immature Gran % (Auto) 0.5 H Neut % (Auto) 83.3 H Lymph % (Auto) 6.2 L [place] % (Auto) 9.0 Eos % (Auto) 0.5 Baso % (Auto) 0.5 Lymph # (Auto) 0.4 L [place] # (Auto) 0.6 Eos # (Auto) 0.0 Baso # (Auto) 0.0 Abs Immat Gran (auto) 0.03 Absolute Neuts (auto) 5.3 Absolute Nucleated RBC 0.000 Nucleated RBC % (auto) 0.0 Hold Purple Top PT INR APTT D-Dimer High Sensitivty VBG pH 7.34 VBG pCO2 78 VBG pO2 34 VBG HCO3 42 H VBG O2 Saturation 48.0 VBG Base Excess 13.6 Anion Gap 7 L Estim Creat Clear Calc 49.4 Estimated GFR > 60 POC Glucose Random Glucose 236 H Lactic Acid 1.4 Calcium 8.6 D Total Bilirubin 0.2 AST 26 ALT 48 H Alkaline Phosphatase 187 H B-Natriuretic Peptide Total Protein 7.1 Albumin 2.8 L Influenza Type A (PCR) NEGATIVE Influenza Type B (PCR) NEGATIVE RSV RNA Qual (PCR) POSITIVE A SARS-CoV-2 RNA (RT-PCR) NEGATIVE 07/12/24 07/12/24 07/14/24 14:25 20:10 16:21 MCV MCH MCHC RDW Plt Count MPV Immature Gran % (Auto) Neut % (Auto) Lymph % (Auto) [place] % (Auto) Eos % (Auto) Baso % (Auto) Lymph # (Auto) [place] # (Auto) Eos # (Auto) Baso # (Auto) Abs Immat Gran (auto) Absolute Neuts (auto) Absolute Nucleated RBC Nucleated RBC % (auto) Hold Purple Top PT 11.6 INR 1.0 APTT 24.5 L D-Dimer High Sensitivty 752 VBG pH VBG pCO2 VBG pO2 VBG HCO3 VBG O2 Saturation VBG Base Excess Anion Gap Estim Creat Clear Calc Estimated GFR POC Glucose 342 H Random Glucose Lactic Acid Calcium Total Bilirubin AST ALT Alkaline Phosphatase B-Natriuretic Peptide 1019 H Total Protein Albumin Influenza Type A (PCR) Influenza Type B (PCR) RSV RNA Qual (PCR) SARS-CoV-2 RNA (RT-PCR) 07/14/24 07/15/24 07/15/24 20:09 05:07 07:22 MCV MCH MCHC RDW Plt Count MPV Immature Gran % (Auto) Neut % (Auto) Lymph % (Auto) [place] % (Auto) Eos % (Auto) Baso % (Auto) Lymph # (Auto) [place] # (Auto) Eos # (Auto) Baso # (Auto) Abs Immat Gran (auto) Absolute Neuts (auto) Absolute Nucleated RBC Nucleated RBC % (auto) Hold Purple Top SEE NOTE PT INR APTT D-Dimer High Sensitivty VBG pH VBG pCO2 VBG pO2 VBG HCO3 VBG O2 Saturation VBG Base Excess Anion Gap 10 L Estim Creat Clear Calc 33.7 Estimated GFR 56 POC Glucose 402 H* 273 H Random Glucose 304 H Lactic Acid Calcium 8.3 L Total Bilirubin AST ALT Alkaline Phosphatase B-Natriuretic Peptide Total Protein Albumin Influenza Type A (PCR) Influenza Type B (PCR) RSV RNA Qual (PCR) SARS-CoV-2 RNA (RT-PCR) 07/15/24 10:58 MCV MCH MCHC RDW Plt Count MPV Immature Gran % (Auto) Neut % (Auto) Lymph % (Auto) [place] % (Auto) Eos % (Auto) Baso % (Auto) Lymph # (Auto) [place] # (Auto) Eos # (Auto) Baso # (Auto) Abs Immat Gran (auto) Absolute Neuts (auto) Absolute Nucleated RBC Nucleated RBC % (auto) Hold Purple Top PT INR APTT D-Dimer High Sensitivty VBG pH VBG pCO2 VBG pO2 VBG HCO3 VBG O2 Saturation VBG Base Excess Anion Gap Estim Creat Clear Calc Estimated GFR POC Glucose 238 H Random Glucose Lactic Acid Calcium Total Bilirubin AST ALT Alkaline Phosphatase B-Natriuretic Peptide Total Protein Albumin Influenza Type A (PCR) Influenza Type B (PCR) RSV RNA Qual (PCR) SARS-CoV-2 RNA (RT-PCR) Microbiology Microbiology Results: Microbiology 07/12/24 12:42 Blood Culture - Preliminary Blood - Venous No growth after 48 hours. 07/12/24 12:42 Blood Culture - Preliminary Blood - Venous No growth after 48 hours. Assessment and Plan (1) Acute hyperkalemia: Status: Acute (2) Acute on chronic hypoxic respiratory failure: Status: Acute (3) COPD exacerbation: Status: Acute (4) Respiratory syncytial virus (RSV): Status: Acute Plan Pt is a 78-year-old female with a PMH significant for?COPD on 2L home O2, insulin-dependent type 2 diabetes, hx of SVT, GERD, and recent left tibial plateau fracture who presents to the ED from home after VNA noted her to have increased work of breathing and pt was desatting to the mid 60s on home O2. Pt will be admitted to the hospital for treatment and further evaluation of acute on chronic hypoxic respiratory failure in the setting of RSV infection with concomitant COPD exacerbation. Acute on chronic hypoxic respiratory failure on 3L in the setting of RSV infection and COPD exacerbation improving CTA negative for pulmonary emboli or consolidation/pneumonia Continue Solu-Medrol, DuoNebs, and guaifenesin Patient on 2L home O2, wean as tolerated Monitor respiratory status PT evaluation Acute on chronic diastolic CHF Echo showing 65-70% EF wit elevated RV pressures stop Lasix 20mg IV daily, switch to PO Follow BMP and electrolytes Acute hyperkalemia Lokelma, follow BMP Left proximal femur fracture Secondary to fall at home 06/24/2024 Returned from rehab a few days ago Repeat imaging shows stable fracture PT rec STR , waiting on placement Hx of SVT Continue diltiazem, metoprolol Insulin-dependent type 2 diabetes with hyperglycemia refusing higher doses of Lantus Sliding-scale insulin, Lantus Diabetic diet Full Code DVT Prophylaxis: Lovenox Pt will require overnight stay for treatment of?acute on chronic hypoxic respiratory failure in the setting of RSV infection with concomitant COPD exacerbation. Given patient's level of hypoxia, they will require hospital level care for administration of supplemental oxygen, IV steroids, breathing treatments, as well as IV diuretics for pleural effusions and pulmonary edema. Quality Stroke Does the patient have a stroke diagnosis?: No VTE Prior VTE?: No VTE Risk Level:: Medical - moderate - high VTE Device Contraindication: Treatment Not Indicated VTE Drug Contraindication: N/A - Med Ordered
[2024-07-15 15:59] LABS: Glucose, Whole Blood 334 mg/dL (60-115)
--- NOTE | 2024-07-15 16:34 | HO.WOUND ---
Wound Consult: Initial 78yr old?[place] [facility] - See progress notes and H&P for detailed history.? Wound consult placed for coccyx.? Patient agreeable to assessment and photo documentation.? Patient was noted to be in brief. Discussed brief use and the concern for it worsening her wound. she reported she wasnted the brief inplace despite education. Barrier cream applied to periwnal areas since MASD was noted to this area. Foam dressing in place to sacrum to protect bony sacral area. Sacrum Etiology: Stage 2 Pressure injury ??Present on Admission Measurements: 0.5cm x 0.2cm x 0.1cm Wound Bed: pink red moist wound bed Drainage / Odor: none Edges: ? well defined Simi wound: MASD - red pink hyperpigmented tissue - remains blanchable -? No Induration, Fluctuance or Warmth noted of importance the patients anatomy is extremely bony in the sacral area and at significant risk for further break down specifically in the presence of MASD. Pain: denies Goals of Treatment: ? limit brief use to when ambulating - sacral foam dressing to sacral area to protect from friction and allow for moist wound healing Perineal area is noted for red pink intact irrittated appearing tissue - patient reports tenderness - tissure remains intact at this time. discontinue purewick given the perineal area is noted for MASD and irritation barrier cream to protect from friction and moisture. Change brief once wet when in use. Recommendations: 1. Turn and Reposition every 2 hours and as needed for patient comfort.? Use pillows or wedges to support off loading positions. 2. Off Load all bony prominences with use of pillows and heel boots if needed.? Apply Preventative foams where needed. ? 3. Monitor for incontinence and moisture control, use barrier creams when needed for prevention and treatment. 4. Provide adequate and supplemental nutrition.? 5. Continue low air loss mattress. 6. When applicable maintain blood glucose levels per Providers order. 7. Perineal - Ph balances wipes, pat dry. Apply barrier cream to perineal area twice daily and after episodes of incontinence. 8. Sacrum - Cleanse with NS moist gauze, pat dry. Apply skin prep allow to dry. Cover with sacral foam dressing change every 5 days and PRN. Re-consult wound care Nurse for wound deterioration or wound changes.
[2024-07-15] MEDS: Enoxaparin Sodium 40 MG/0.4 ML SYRINGE SUBCUT (19:57)
[2024-07-15 20:28] LABS: Glucose, Whole Blood 386 mg/dL (60-115)
[2024-07-16] VITALS (7 sets, daily range): BP systolic 118–147; BP diastolic 56–79; PULSE 68–86; RESP 16–18; TEMP 36.6–36.9; O2SAT 92–98; BMI 16.7
--- NOTE | 2024-07-16 06:53 | PC.NURSE ---
Pt requested purewick overnight while she was in bed sleeping instead of the briefs. She was concerned with being wet and having to be changed several times overnight and she wanted to get some sleep. The purewick did work well and kept her dry overnight.
[2024-07-16 07:25] LABS: Glucose, Whole Blood 67 mg/dL (60-115)
[2024-07-16 07:25] LABS: Glucose, Whole Blood 78 mg/dL (60-115)
[2024-07-16] MEDS: Albuterol/Iprat 2.5/0.5MG 3 ML AMPUL.NEB INHALE ×2 (08:46→11:38)
--- NOTE | 2024-07-16 09:43 | W.MHC.F2F ---
Service Date Service Date: 07/16/24 Encounter Date of encounter: 07/16/24 Reasons for Services Signs and symptoms assessed: RSV infection, COPD physical deconditioning Reason for group home: medication management and teach disease management Reason for physical therapy: home safety and mobility and therapeutic exercises Homebound: Leaving the home is medically contraindicated at this time without the asist of a device and/or another person due th the listed conditions above and below. Reason homebound: unsteady gait / fall risk Certification: Based on the above findings, I certify that this patient is confined to the home and needs intermittent group home care, physical therapy and/or speech therapy, or continues to need occupational therapy. The patient is under my care, and I have initiated the establishment of the plan of care. The patient will be followed by a physician who will periodically review the plan of care. Time Spent With Patient Time: Total time managing care of this patient today ____ minutes.
[2024-07-16] MEDS: Ascorbic Acid 500 MG TABLET PO (09:46)
[2024-07-16] MEDS: predniSONE 20 MG TABLET 40 MG PO (09:46)
[2024-07-16] MEDS: Cholecalciferol (Vitamin D3) 25 MCG TABLET PO (09:46)
[2024-07-16] MEDS: Multivitamin TABLET 1 TAB PO (09:46)
[2024-07-16] MEDS: Furosemide 20 MG TABLET PO (09:46)
[2024-07-16] MEDS: Aspirin Enteric Coated 81 MG TABLET.DR PO (09:46)
[2024-07-16] MEDS: Metoprolol Tartrate 25 MG TABLET PO (09:46)
[2024-07-16] MEDS: dilTIAZem HCL 30 MG TABLET PO (09:46)
--- NOTE | 2024-07-16 09:46 | PM.DS ---
DS: Providers Provider Date of Service: 07/16/24 Date of admission: 07/12/24 19:56 Date of discharge: 07/16/24 Primary care physician: NAVID Arboleda Consults: 07/13/24 06:46 Consult to Wound Care Routine Reason for consultation: open area to coccyx Has provider been notified: No DS: Diagnosis Discharge Diagnosis (1) Acute hyperkalemia: Status: Acute (2) Acute on chronic hypoxic respiratory failure: Status: Acute (3) COPD exacerbation: Status: Acute (4) Respiratory syncytial virus (RSV): Status: Acute (5) Physical deconditioning: Status: Acute DS: Summary Hospital Course Hospital Course: Admission note HPI Pt is a 78-year-old female with a PMH significant for?COPD on 2L home O2, insulin-dependent type 2 diabetes, hx of SVT, GERD, and recent left tibial plateau fracture who presents to the ED from home after [facility] noted her to have increased work of breathing and pt was desatting to the mid 60s on home O2. Pt reports was recently discharged home from [facility] a few days ago. Since then pt reports he has had mostly lightheadedness and dizziness, nonproductive cough, increased SOB, fatigue, and feeling like she is ?not getting enough oxygen?. Denies fever, chills, nausea, vomiting. No nasal congestion or rhinorrhea. Denies myalgias. No chest pain/pressure, or palpitations. In the ED pt had low-grade fever 99.1, tachycardic up to 100, tachypneic up to 24, and hypertensive as high as 145/69. During interview and exam pt was noted to be desatting into the 70s on 2L NC with slow recovery. Labs were significant for testing positive for RSV, elevated D-dimer of 752, ALT 48, and alk-phos 187. No leukocytosis. Stable normocytic anemia of 10.6/36.1. Renal function baseline. Lactic acid WNL. VBG with pH 7.34, pCO2 78, and bicarb 42. CXR concerning for pulmonary edema and bilateral pleural effusions with questionable loculation with superimposed acute inflammatory vs infectious process not excluded. CTA of chest negative for pulmonary embolism?but showed mild pulmonary edema. EKG demonstrated normal sinus rhythm with T-wave inversions in V1 and V2. Pt was treated with DuoNebs and ceftriaxone. Pt will be admitted to the hospital for treatment and further evaluation of acute on chronic hypoxic respiratory failure in the setting of RSV infection with concomitant COPD exacerbation. Hospital course The patient was treated for the following: Acute on chronic hypoxic respiratory failure on 3L in the setting of RSV infection and COPD exacerbation as CTA negative for pulmonary emboli or consolidation/pneumonia treated with Solu-Medrol, DuoNebs, and guaifenesin with good response as she was weaned down to 3L O2 and was able to participate with PT who recommended short term rehab for physical deconditioning but the patient prefers going home with VNA for therapy. She was also treated for Acute on chronic diastolic CHF as Echo showed 65-70% EF with elevated RV pressures. Treated with Lasix 20mg IV daily, to switch to PO every otherday at time of discharge with a plan to repeat BMP as outpatient and follow with PCP for any further adjustments. Acute hyperkalemia corrected with Lokelma. For history of recent Left proximal femur fracture secondary to fall at home 06/24/2024 she evaluated by PT but wants to go home w VNA. For Hx of SVT she was continued on diltiazem, metoprolol. Given Hx Insulin-dependent type 2 diabetes with hyperglycemia she was refusing higher doses of Lantus. kept on Sliding-scale insulin and Diabetic diet. Discharge plan continue prednisone as prescribed Start Lasix every other day repeat blood test next week Follow with PCP for any further adjustments Time Attestation Discharge Coordination Time (in mins): 42 Quality: Safe Use of Opioids Does Pt have an Active Cancer Diagnosis on the Problem List?: No Quality: Stroke Does the patient have a stroke diagnosis?: No Physical Exam Vital Signs: Vital Signs: Last Vital Signs Temp 97.8 F 07/16/24 07:06 Pulse 86 07/16/24 09:43 Resp 16 07/16/24 08:49 BP 118/56 L 07/16/24 09:43 Pulse Ox 98 07/16/24 07:06 O2 Del Method Nasal Cannula 07/16/24 07:06 O2 Flow Rate 3 07/16/24 07:06 Oxygen Flow Rate 4 07/12/24 10:57 BMI result Body Mass Index 16.7 Const: Other: Constitutional : interactive, not in distress Cardiovascular : no JVP, no lower extremity edema Respiratory : bilateral chest movement, not in resp distress , no expiratory wheezes on 3L O2 Gastrointestinal: soft, lax, Non tender Skin : Warm, Dry Neurological : Alert & oriented , No focal deficit DS: Data Data Completed and Pending Completed studies during hospitalization [Text1]: Procedures Reposition Left Upper Femur with Internal Fixation Device, Open Approach (01/13/24) Labs on day of discharge: Laboratory Results - last 24 hr 07/12/24 07/12/24 07/12/24 11:40 11:47 12:42 WBC 6.4 RBC 3.84 L Hgb 10.6 L Hct 36.1 L MCV 94.0 MCH 27.6 MCHC 29.4 L RDW 18.5 H Plt Count 287 D MPV 9.1 L Immature Gran % (Auto) 0.5 H Neut % (Auto) 83.3 H Lymph % (Auto) 6.2 L [place] % (Auto) 9.0 Eos % (Auto) 0.5 Baso % (Auto) 0.5 Lymph # (Auto) 0.4 L [place] # (Auto) 0.6 Eos # (Auto) 0.0 Baso # (Auto) 0.0 Abs Immat Gran (auto) 0.03 Absolute Neuts (auto) 5.3 Absolute Nucleated RBC 0.000 Nucleated RBC % (auto) 0.0 PT INR APTT D-Dimer High Sensitivty VBG pH 7.34 VBG pCO2 78 VBG pO2 34 VBG HCO3 42 H VBG O2 Saturation 48.0 VBG Base Excess 13.6 Sodium 143 Potassium 4.4 Chloride 106 Carbon Dioxide 34 H Anion Gap 7 L BUN 33 H Creatinine 0.72 Estim Creat Clear Calc 49.4 Estimated GFR > 60 POC Glucose Random Glucose 236 H Lactic Acid 1.4 Calcium 8.6 D Total Bilirubin 0.2 AST 26 ALT 48 H Alkaline Phosphatase 187 H B-Natriuretic Peptide Total Protein 7.1 Albumin 2.8 L Influenza Type A (PCR) NEGATIVE Influenza Type B (PCR) NEGATIVE RSV RNA Qual (PCR) POSITIVE A SARS-CoV-2 RNA (RT-PCR) NEGATIVE 07/12/24 07/12/24 07/15/24 14:25 20:10 10:58 WBC RBC Hgb Hct MCV MCH MCHC RDW Plt Count MPV Immature Gran % (Auto) Neut % (Auto) Lymph % (Auto) [place] % (Auto) Eos % (Auto) Baso % (Auto) Lymph # (Auto) [place] # (Auto) Eos # (Auto) Baso # (Auto) Abs Immat Gran (auto) Absolute Neuts (auto) Absolute Nucleated RBC Nucleated RBC % (auto) PT 11.6 INR 1.0 APTT 24.5 L D-Dimer High Sensitivty 752 VBG pH VBG pCO2 VBG pO2 VBG HCO3 VBG O2 Saturation VBG Base Excess Sodium Potassium Chloride Carbon Dioxide Anion Gap BUN Creatinine Estim Creat Clear Calc Estimated GFR POC Glucose 238 H Random Glucose Lactic Acid Calcium Total Bilirubin AST ALT Alkaline Phosphatase B-Natriuretic Peptide 1019 H Total Protein Albumin Influenza Type A (PCR) Influenza Type B (PCR) RSV RNA Qual (PCR) SARS-CoV-2 RNA (RT-PCR) 07/15/24 07/15/24 07/16/24 15:55 20:25 07:07 WBC RBC Hgb Hct MCV MCH MCHC RDW Plt Count MPV Immature Gran % (Auto) Neut % (Auto) Lymph % (Auto) [place] % (Auto) Eos % (Auto) Baso % (Auto) Lymph # (Auto) [place] # (Auto) Eos # (Auto) Baso # (Auto) Abs Immat Gran (auto) Absolute Neuts (auto) Absolute Nucleated RBC Nucleated RBC % (auto) PT INR APTT D-Dimer High Sensitivty VBG pH VBG pCO2 VBG pO2 VBG HCO3 VBG O2 Saturation VBG Base Excess Sodium Potassium Chloride Carbon Dioxide Anion Gap BUN Creatinine Estim Creat Clear Calc Estimated GFR POC Glucose 334 H 386 H* 67 Random Glucose Lactic Acid Calcium Total Bilirubin AST ALT Alkaline Phosphatase B-Natriuretic Peptide Total Protein Albumin Influenza Type A (PCR) Influenza Type B (PCR) RSV RNA Qual (PCR) SARS-CoV-2 RNA (RT-PCR) 07/16/24 07:21 WBC RBC Hgb Hct MCV MCH MCHC RDW Plt Count MPV Immature Gran % (Auto) Neut % (Auto) Lymph % (Auto) [place] % (Auto) Eos % (Auto) Baso % (Auto) Lymph # (Auto) [place] # (Auto) Eos # (Auto) Baso # (Auto) Abs Immat Gran (auto) Absolute Neuts (auto) Absolute Nucleated RBC Nucleated RBC % (auto) PT INR APTT D-Dimer High Sensitivty VBG pH VBG pCO2 VBG pO2 VBG HCO3 VBG O2 Saturation VBG Base Excess Sodium Potassium Chloride Carbon Dioxide Anion Gap BUN Creatinine Estim Creat Clear Calc Estimated GFR POC Glucose 78 Random Glucose Lactic Acid Calcium Total Bilirubin AST ALT Alkaline Phosphatase B-Natriuretic Peptide Total Protein Albumin Influenza Type A (PCR) Influenza Type B (PCR) RSV RNA Qual (PCR) SARS-CoV-2 RNA (RT-PCR) Preliminary micro results at discharge 07/12/24 12:42 Blood Culture - Preliminary Blood - Venous No growth after 48 hours. 07/12/24 12:42 Blood Culture - Preliminary Blood - Venous No growth after [address] scan - chest: Radiologist's impression: ITS Impressions Chest X-Ray 07/12/24 11:31 IMPRESSION: Concerning pulmonary edema and bilateral pleural effusions with questionable loculation. Superimposed acute inflammatory versus infectious processes cannot be excluded. Recommend follow-up until resolution. Electronically signed by: Kobi Lorenzana MD 07/12/2024 11:57 AM [facility] [place] Plan Discharge Anticipated Discharge Date/Time: 07/16/24 09:26 Patient Disposition: Home Health Service Discharge Diagnosis: RSV infection COPD exacerbation Referrals: Vicky Treviño FNP [Primary Care Provider] - 1 Week Discharge Medications: New prednisone 20 mg Tablet 40 mg PO DAILY Qty: 6 0RF dextromethorphan-guaifenesin 10-100 mg/5 mL Syrup 10 ml PO Q4H PRN (Reason: Cough) Qty: 237 0RF furosemide 20 mg Tablet 20 mg PO Q OTHER DAY Qty: 60 0RF Protocol: Hold for SBP< HOLD for SBP < : 90 Continued (DME) lancets 33 gauge misc See Rx Instructions .ROUTE .MEDSUPPLY Qty: 200 4RF Rx Instructions: Check blood sugar four times daily (DME) blood sugar diagnostic Strip See Rx Instructions .ROUTE .MEDSUPPLY Qty: 200 5RF Rx Instructions: Check fasting blood sugar four times daily (DME) FreeStyle Test Strip See Rx Instructions .Route Qty: 200 3RF Rx Instructions: four times daily (DME) FreeStyle Lite Strips Strip See Rx Instructions .Route Qty: 100 3RF Rx Instructions: test 3 times daily (DME) blood-glucose meter [FreeStyle Lite Meter] Kit See Rx Instructions .Route Qty: 1 0RF Rx Instructions: to check blood glucose 3x daily (DME) lancets [FreeStyle Lancets] 28 gauge misc See Rx Instructions .Route Qty: 100 3RF Rx Instructions: three times daily (DME) FreeStyle [place] 3 [place] Misc See Rx Instructions .Route Qty: 1 0RF Rx Instructions: As directed (DME) FreeStyle Silvina 3 Sensor Device See Rx Instructions .Route Qty: 6 3RF Rx Instructions: As directed metoprolol tartrate 25 mg tablet 25 mg PO BID 30 Days Qty: 60 5RF cholecalciferol (vitamin D3) [Vitamin D3] 10 mcg (400 unit) Tablet 25 mcg PO DAILY aspirin 81 mg tablet,delayed release (DR/EC) 81 mg PO BID magnesium oxide 400 mg (241.3 mg magnesium) tablet 400 mg PO BID diltiazem HCl 30 mg tablet 30 mg PO TID insulin glargine [Lantus Solostar U-100 Insulin] 100 unit/mL (3 mL) insulin pen 8 unit subcut DAILY biotin 2,500 mcg Tablet,Chewable 1,000 mcg PO DAILY Women's 50 Plus Multivitamin 400 mcg-500 mg calcium-20 mcg tablet 1 tab PO DAILY ascorbic acid (vitamin C) 500 mg capsule 500 mg PO DAILY (DME) pen needle, diabetic [BD Ultra-Fine Mini Pen Needle] 31 gauge x 3/16 needle See Rx Instructions .ROUTE DAILY Qty: 1200 Rx Instructions: As directed (DME) pen needle, diabetic [Comfort EZ Pen [place]] 33 gauge x 5/32 needle See Rx Instructions .Route Qty: 100 3RF Rx Instructions: once daily loperamide 2 mg tablet 2 mg PO Q6H PRN (Reason: Loose Stool) lutein 20 mg capsule 20 mg PO DAILY Rx Instructions: give with meal/snack acetaminophen 325 mg capsule 650 mg PO Q6H PRN (Reason: Pain/Fever) Discharge Orders: Discharge Order (Routine); Ordered 07/16/24 Ordered By: Carmen Dominguez Diet: Advance to usual diet Activity on Discharge: As tolerated Stand Alone Forms: Patient Portal Discharge page Print Language: [place] Other Ambulatory Orders: Basic Metabolic Panel (Routine) Timeframe: 1 Week Facility: [facility] - Location: Laboratory Ordered By: Carmen Dominguez Care Plan Goals: continue prednisone as prescribed Start Lasix every other day repeat blood test next week Follow with PCP for any further adjustments Health Concerns: COPD exacerbation RSV infection Heart failure Plan of Treatment: Prednisone Lasix Physical therapy Assessment: as above Patient Instructions: Respiratory Syncytial Virus (DC)
[2024-07-16] MEDS: Magnesium Oxide 400 MG TABLET PO (09:47)
[2024-07-16 11:27] LABS: Glucose, Whole Blood 240 mg/dL (60-115)
[2024-07-16] MEDS: Insulin Glargine,Hum.rec.anlog 100 UNIT/ML 10 ML VIAL 14 UNIT SUBCUT (11:52)
--- NOTE | 2024-07-16 12:04 | MHC.CM.PN ---
IMM 07/16/24 Patient is discharged to home today. [facility] will provide home services. Transport is booked for 1pm order picker.
== END 2024-07-16 14:19 | disposition home health service (06) | DRG 190 ==
LOC: HO.ED 19:15 → HO.EDOVER 20:09 → HO.S3 07-13 05:18
PROVIDERS: Physician Assistant Medical; Admitting Provider Student in an Organized Health Care Education/Training Program; Emergency Provider Emergency Medicine Emergency Medical Services; PCP Nurse Practitioner Family; Visit Provider Student in an Organized Health Care Education/Training Program
DX: J43.9 Emphysema, unspecified (principal); I50.33 Acute on chronic diastolic (congestive) heart failure; J96.21 Acute and chronic respiratory failure with hypoxia; I47.10 Supraventricular tachycardia, unspecified; Z99.81 Dependence on supplemental oxygen; B97.4 Respiratory syncytial virus as the cause of diseases classified elsewhere; Z79.4 Long term (current) use of insulin; Z79.82 Long term (current) use of aspirin; Z79.899 Other long term (current) drug therapy
CPT/HCPCS: 0241U; 36415; 71045; 71275; 73560; 80048; 80053; 82803; 82947; 83605; 83880; 85025; 85027; 85379; 85610; 85730; 87040; 93005; 93306; 94640; 97116; 97162; 97530; 99212; 99285; J0696; J1650; J1940; J2919; Q9957; Q9967

== ENCOUNTER → 2024-07-12 11:31 | Outpatient (BNV) | payer MEDICARE, SELFPAY | PROVIDERS: Emergency Provider Emergency Medicine Emergency Medical Services; PCP Nurse Practitioner Family; Visit Provider Radiology Diagnostic Radiology | DX: R05.9 Cough, unspecified (principal); R06.02 Shortness of breath; J81.0 Acute pulmonary edema | CPT/HCPCS: 71045 ==

== ENCOUNTER → 2024-07-12 12:31 | Outpatient (BNV) | payer MEDICARE, SELFPAY | PROVIDERS: Admitting Provider Student in an Organized Health Care Education/Training Program; Emergency Provider Emergency Medicine Emergency Medical Services; PCP Nurse Practitioner Family; Visit Provider Internal Medicine Cardiovascular Disease | DX: R94.31 Abnormal electrocardiogram [ECG] [EKG] (principal); R06.02 Shortness of breath | CPT/HCPCS: 93010 ==

== ENCOUNTER 2024-07-12 19:56 | Outpatient (BNV) | payer MEDICARE, SELFPAY | END 2024-07-15 07:00 | PROVIDERS: Admitting Provider Student in an Organized Health Care Education/Training Program; Emergency Provider Emergency Medicine Emergency Medical Services; PCP Nurse Practitioner Family; Visit Provider Internal Medicine Cardiovascular Disease | DX: I34.0 Nonrheumatic mitral (valve) insufficiency (principal); I36.1 Nonrheumatic tricuspid (valve) insufficiency | CPT/HCPCS: 93306 ==

== ENCOUNTER → 2024-07-12 19:56 | Outpatient (BNV) | payer MEDICARE, SELFPAY | PROVIDERS: Admitting Provider Student in an Organized Health Care Education/Training Program; Emergency Provider Emergency Medicine Emergency Medical Services; PCP Nurse Practitioner Family; Visit Provider Student in an Organized Health Care Education/Training Program | DX: E87.5 Hyperkalemia (principal); J96.21 Acute and chronic respiratory failure with hypoxia; J44.1 Chronic obstructive pulmonary disease with (acute) exacerbation; B33.8 Other specified viral diseases | CPT/HCPCS: 99223; 99232; 99233; 99239; G0180 ==

== ENCOUNTER 2024-08-08 15:27 | Outpatient (AMB) | payer MEDICARE, SELFPAY ==
[2024-08-08 15:31] VITALS: BP 114/60; PULSE 78; BMI 15.2
--- NOTE | 2024-08-08 15:31 | MHC.OFFVIS ---
Vital Signs 08/08/24 15:31 Height 5 ft 3 in Weight 86 lb BMI 15.2 BP 114/60 Blood Pressure Location Lt brachial Position Sitting Pulse 78 Pulse Source Pulse Oximeter Intake Visit Reasons: r/s 06/06/24 3 mos followup [employer] Required: No Allergies sulfa Allergy (Unknown, Verified 08/08/24 15:35) diarrhea midazolam [From Versed] Adverse Reaction (Severe, Verified 08/08/24 15:35) bradycardia Medication List - Last Reconciled 08/08/24 by ROHITH Wadsworth acetaminophen 650 mg PO Q6H PRN ascorbic acid (vitamin C) 500 mg PO DAILY aspirin 81 mg PO BID biotin 1,000 mcg PO DAILY blood sugar diagnostic Check fasting blood sugar four times daily cholecalciferol (vitamin D3) (Vitamin D3) 25 mcg PO DAILY dextromethorphan-guaifenesin 10-100 mg/5 mL 10 mL PO Q4H PRN FreeStyle Lancets (lancets) three times daily NS FreeStyle Silvina 3 [place] (blood-glucose meter,continuous) As directed NS FreeStyle Silvina 3 Sensor (blood-glucose sensor) every 14 days NS FreeStyle Lite Meter (blood-glucose meter) to check blood glucose 3x daily NS FreeStyle Lite Strips (blood sugar diagnostic) test 3 times daily NS FreeStyle Test (blood sugar diagnostic) four times daily NS furosemide 20 mg See Protocol PO Q OTHER DAY insulin glargine (Lantus Solostar U-100 Insulin) 8 units subcut DAILY lancets Check blood sugar four times daily loperamide 2 mg PO Q6H PRN lutein 20 mg PO DAILY magnesium oxide 400 mg PO BID metoprolol tartrate 25 mg PO BID 30 days oo-gzi-lbllc-calcium carb-K1 400 mcg-500 mg calcium-20 mcg (Women's 50 Plus Multivitamin) 1 tab PO DAILY pen needle, diabetic (Comfort EZ Pen [place]) once daily pen needle, diabetic (BD Ultra-Fine Mini Pen Needle) As directed HPI HPI r/s 06/06/24 3 mos followup: Details: Parisa is a 79-year-old female with past medical history of being underweight, diabetes, O2 dependent emphysema, who has episodes of NSVT with prior ER visits requiring use of IV metoprolol. Last ER visit for this problem was 02/15/2024. Today she reports that since her last visit in February she had 1 episode of NSVT lasting about an hour. She said her heart rate was in the 140s. When she gets it she lays down and relaxes and it will eventually and suddenly go away. She has been taking her medications as directed. He has chronic breathing issues and wears her oxygen 1-2 L with nasal cannula. She was in the ER last month with increased shortness of breath. She did have mildly elevated troponin at that time without EKG changes. She has not had chest discomfort at rest or with activity. No lightheadedness, presyncope, syncope. She did have a fall in June and sustained a tibial plateau fracture. She has been time in rehab and is now ambulating short distances. This visit she is sitting in a wheelchair. She does research on all her medical condition and providers. She is still interested in a SVT ablation however would like to be seen at [facility] Medical History Abdominal wall bulge Closed intertrochanteric fracture of left hip Chronic hypotension Closed hip fracture Hypotension Hypotension Tachycardia Diabetes Sepsis Pneumonia Acute sinusitis Hypoxemia Pulmonary emphysema Pneumothorax Diabetes mellitus with microalbuminuria, without long-term current use of insulin Vaccination refused by patient Underweight Intermittent palpitations Diabetes mellitus with hyperglycemia, without long-term current use of insulin Hx of fracture of wrist H/O fracture of wrist Surgical History H/O wrist surgery History of femoral hernia repair Family History Father Diabetes mellitus Mother Essential hypertension Sister Breast cancer Social History Household Members: Family Housing: House Do you presently have visiting nurse or other home services: Yes (adalberto CRAWFORD) Alcohol intake: never Comment: bed alarm is not working. put chair alarm on her Patient Tobacco Use Status: Never used Tobacco e-Cigarette/Vaping Use: Never Used Second Hand Smoke Exposure: No Advance Directives Date on File: 06/16/22 service: No Current occupational status: retired Cognitive needs: No Hearing needs: No Vision needs: No Review of Systems Const All systems reviewed & are unremarkable except as noted in HPI and below ENT Denies dizziness Card Denies chest pain, Denies chest pain at rest, Denies chest pain with activity, Reports rapid heart rate, Denies pedal edema, Denies edema, Denies leg edema, Denies lightheadedness, Reports palpitations, Reports dyspnea, Reports dyspnea on exertion and Denies orthopnea Resp Denies cough, Reports dyspnea and Reports dyspnea on exertion GI Denies hematochezia and Denies change in stool character Musc Details: walking short distances - recent tibial plateau fx Reports abnormal gait, Denies limited range of motion, Denies muscle cramps, Denies muscle weakness, Denies numbness, Denies radiating pain into limb, Denies stiffness and Denies tingling Neuro Reports abnormal gait, Denies dizziness, Denies numbness and Denies tingling Endo Reports palpitations Physical Exam Vital Signs: Last Vital Signs Pulse 78 08/08/24 15:31 BP 114/60 08/08/24 15:31 BMI result Body Mass Index 15.2 Const General: cooperative, healthy appearing, comfortable and no acute distress Orientation/consciousness: patient oriented x3 Neck Neck: Yes normal visual inspection Resp Effort & Inspection: normal respiratory effort Auscultation: clear to auscultation bilaterally, no crackles, no rales, no rhonchi and no wheezes Cardio Jugular venous distension: no JVD Rate: regular rate Rhythm: regular rhythm Heart sounds: S1 normal heart sound present, S2 normal heart sound present, no murmurs and no rubs Neuro General: patient oriented x3 Extrem General: Yes normal to inspection and No no pedal edema Psych Appearance: grossly normal Mental Status: mental status grossly normal Speech and movement: Normal speech and movement present Assessment & Plan Assessment & Plan (1) Palpitations: Code(s): R00.2 - Palpitations Category: Medical Plan: History of supraventricular tachycardia with ER visits requiring IV metoprolol. Last ER visit for SVT February 2024. Last Echocardiogram done 06/02/2023 showed EF 62%, normal valves, mild pulmonary hypertension. On last visit she requested referral to electrophysiology for EP. I had informed her that she may not be a candidate due to her respiratory and frail condition. A referral was sent at her request to [facility]. Today she reports that she did not attend that appointment as she did not like the information she read about that provider. She is requesting [facility] electrophysiology. We discussed the procedure and she was informed she may require general anesthesia. Informed her that she is likely not a good candidate. She will discuss this with her PCP and let us know. If PCP feels that she could tolerate the procedure I will then send a referral to [facility] EP. At this time will have her continue on metoprolol tartrate 25 mg b.i.d.. Blood pressure is on the low side. If she has recurrent episodes of SVT then may need to increase metoprolol. Reviewed the avoidance of all caffeine, dark chocolate. Spent time reviewing vagal maneuvers with her in detail. Emergency care if needed for sustained rapid heart palpitations. Cardiology follow-up in 6 months, sooner if needed. (2) Supraventricular tachycardia: Code(s): I47.10 - Supraventricular tachycardia, unspecified Category: Medical Plan: As above (3) Elevated troponin: Code(s): R79.89 - Other specified abnormal findings of blood chemistry Category: Medical Plan: Troponin was elevated ER visit 06/24/24 for shortness of breath, peak 58.5. She had no EKG changes. No chest discomfort. ER doctor spoke with Dr. Dolan at that time and troponin elevation thought to be related to her pulmonary and orthopedic state. She had a recent fall and tibial plateau fracture. Plan Time spent on chart review, documentation, interview, assessment Coding Level of Care Code Est Pt Level 3 (53522) Complex EM visit Add On G2211 Diagnoses Palpitations R00.2 Supraventricular tachycardia I47.10 Elevated troponin R79.89 Time Spent (min) 24
--- OUTSIDE RECORDS SUMMARY | 2024-08-08 18:56 | XMS_ITS | Encounter Summary ---
Author Organization [facility] Address [address] [place] [address] Care Team Providers Care Critical Care Transport Nurse Name Role Phone Dmitry Jason MD Primary Care Provider [phone] Encounter Details Date Type Department Care Team (Late st Contact Info) Description 07/02/2024 Lab Requisition [facility] - Main Lab [address] [place] [address] Viola Tubbs MD [address] [place] [id number] Encounter for other general examination Social History Tobacco Use Types Packs/Day Years Used Date Smoking Tobacco: Never Assessed Comments Unknown Sex and Gender Information Value Date Recorded Sex Assigned at Not on file Legal Sex Female 12:45 AM EST Gender Identity Not on file Sexual Orientation [...] LAB CHEMISTRY METHOD 07/02/2024 12:14 PM EST [facility] Potassium 4.9 3.5 - 5.5 mmol/L LAB CHEMISTRY METHOD 07/02/2024 12:14 PM EST [facility] Chloride 97 96 - 110 mmol/L LAB CHEMISTRY METHOD 07/02/2024 12:14 PM EST [facility] CO2 45(HH) 21 - 32 mmol/L LAB CHEMISTRY METHOD 07/02/2024 12:14 PM [facility] Anion Gap -2(L) 3 - 11 LAB CHEMISTRY METHOD 07/02/2024 12:14 PM [facility] Glucose 146(H) 70 - 100 mg/dL LAB CHEMISTRY METHOD 07/02/2024 12:14 PM [facility] BUN 31(H) 5 - 25 mg/dL LAB CHEMISTRY METHOD 07/02/2024 12:14 PM [facility] Creatinine 0.63 0.50 - 1.10 mg/dL LAB CHEMISTRY METHOD 07/02/2024 12:14 PM [facility] eGFR 92 >=60 mL/min/1. 73m2 LAB CHEMISTRY METHOD 07/02/2024 12:14 PM [facility] Comment:Calculation based on the??Chronic Kidney Disease Epidemiology Collaboration (CKD-EPI) equation refit??without adjustment for race. BUN/Creatinine Ratio 49.2 LAB CHEMISTRY METHOD 07/02/2024 12:14 PM [facility] Calcium 9.2 8.5 - 10.5 mg/dL LAB CHEMISTRY METHOD 07/02/2024 12:14 PM [facility] Blood Venous blood specimen / Unknown Venipuncture / Unknown 07/02/2024 6:07 AM EST 07/02/2024 9:39 AM EST us Viola Tubbs MD LAB BLOOD ORDERABLES Final Resu lt [facility] [address] [place] [address], [place] [phone] documented in this encounter Visit Diagnoses Diagnosis Encounter for other general examination documented in this encounter Care Teams Critical Care Transport Nurse Relationship Specialty Start Date End Date Dmitry Jason MD [address] [place] [id number] PCP - General Internal Medicine 07/02/24 documented as of this encounter
--- OUTSIDE RECORDS SUMMARY | 2024-08-08 18:56 | XMS_ITS | Encounter Summary ---
Author Organization [facility] Address [address] [place] [address] Care Team Providers Care Skein Yarn Dyer Name Role Phone Dmitry Jason MD Primary Care Provider [phone] Encounter Details Date Type Department Care Team (Late st Contact Info) Description 06/28/[address] [facility] - Main Lab [address] [facility] [place] [address] Viola Tubbs MD [address] [place] [address] Encounter for other general examination Social History [...] CBC auto differential (06/28/2024 6:19 AM EST) WBC 8.0 4.8 - 10.8 K/mcL LAB HEMETOLOGY METHOD 06/28/2024 11:53 AM [facility] RBC 3.70(L) 3.80 - 4.80 M/mcL LAB HEMETOLOGY METHOD 06/28/2024 11:53 AM [facility] Hemoglobin 10.1(L) 11.5 - 16.0 g/dL LAB HEMETOLOGY METHOD 06/28/2024 11:53 AM [facility] Hematocrit 35.5 35.0 - 47.0 % LAB HEMETOLOGY METHOD 06/28/2024 11:53 AM [facility] MCV 95.9 79.0 - 98.0 FL LAB HEMETOLOGY METHOD 06/28/2024 11:53 AM [facility] MCH 27.3 27.0 - 32.0 pcg LAB HEMETOLOGY METHOD 06/28/2024 11:53 AM [facility] MCHC 28.5(L) 32.0 - 37.0 g/dL LAB HEMETOLOGY METHOD 06/28/2024 11:53 AM [facility] RDW 18.8(H) 11.0 - 15.0 % LAB HEMETOLOGY METHOD 06/28/2024 11:53 AM [facility] Platelets 136 130 - 400 K/mcL LAB HEMETOLOGY METHOD 06/28/2024 11:53 AM [facility] MPV 9.9 7.0 - 11.0 FL LAB HEMETOLOGY METHOD 06/28/2024 11:53 AM [facility] NRBC 0.0 <1.0 % LAB HEMETOLOGY METHOD 06/28/2024 11:53 AM [facility] NRBC Absolute 0.00 <0.10 K/mcL LAB HEMETOLOGY METHOD 06/28/2024 11:53 AM [facility] Neutrophils Relative 81.9 % LAB HEMETOLOGY METHOD 06/28/2024 11:53 AM [facility] Lymphocytes Relative 8.0 % LAB HEMETOLOGY METHOD 06/28/2024 11:53 AM [facility] Monocytes Relative 9.3 % LAB HEMETOLOGY METHOD 06/28/2024 11:53 AM [facility] Eosinophils Relative 0.1 % LAB HEMETOLOGY METHOD 06/28/2024 11:53 AM [facility] Basophils Relative 0.1 % LAB HEMETOLOGY METHOD 06/28/2024 11:53 AM [facility] Immature Granulocytes Relative 0.6 % LAB HEMETOLOGY METHOD 06/28/2024 11:53 AM [facility] Neutrophils Absolute 6.51 1.50 - 7.00 K/mcL LAB HEMETOLOGY METHOD 06/28/2024 11:53 AM [facility] Lymphocytes Absolute 0.64(L) 1.00 - 5.00 K/mcL LAB HEMETOLOGY METHOD 06/28/2024 11:53 AM [facility] Monocytes Absolute 0.74 0.20 - 1.00 K/mcL LAB HEMETOLOGY METHOD 06/28/2024 11:53 AM [facility] Eosinophils Absolute 0.01 0.00 - 0.50 K/mcL LAB HEMETOLOGY METHOD 06/28/2024 11:53 AM [facility] Basophils Absolute 0.01 0.00 - 0.20 K/mcL LAB HEMETOLOGY METHOD 06/28/2024 11:53 AM [facility] Immature Granulocytes Absolute 0.05(H) 0.00 - 0.03 K/mcL LAB HEMETOLOGY METHOD 06/28/2024 11:53 AM [facility] Blood Venous blood specimen / Unknown Venipuncture / Unknown 06/28/2024 6:19 AM EST 06/28/2024 11:08 AM EST us Viola Tubbs MD LAB BLOOD ORDERABLES Final Resu lt Performing Organization Address City/[facility]/ZIP Co de Phone Number [facility] [address] [place] [address], [place] [phone] * Thyroid stimulating hormone (06/28/2024 6:19 AM EST) TSH 1.72 0.40 - 4.00 mcIU/mL LAB CHEMISTRY METHOD 06/28/2024 12:29 PM EST [facility] Blood Venous blood specimen / Unknown Venipuncture / Unknown 06/28/2024 6:19 AM EST 06/28/2024 11:08 AM EST us Viola Tubbs MD LAB BLOOD ORDERABLES Final Resu lt Performing Organization Address [facility]/ZIP Co de Phone Number [facility] [address] [place] [address], [place] [phone] * Magnesium (06/28/2024 6:19 AM EST) [facility] Magnesium 2.2 1.9 - 2.6 mg/dL LAB CHEMISTRY METHOD 06/28/2024 12:22 PM EST [facility] Blood Venous blood specimen / Unknown Venipuncture / Unknown 06/28/2024 6:19 AM EST 06/28/2024 11:08 AM EST us Viola Tubbs MD LAB BLOOD ORDERABLES Final Resu lt Performing Organization Address City/[facility]/ZIP Co de Phone Number [facility] [address] [place] [address], [place] [phone] * (ABNORMAL) Comprehensive metabolic panel (06/28/2024 6:19 AM EST) Sodium 138 133 - 145 mmol/L LAB CHEMISTRY METHOD 06/28/2024 12:46 PM [facility] Potassium 4.3 3.5 - 5.5 mmol/L LAB CHEMISTRY METHOD 06/28/2024 12:46 PM [facility] Chloride 99 96 - 110 mmol/L LAB CHEMISTRY METHOD 06/28/2024 12:46 PM [facility] CO2 38(H) 21 - 32 mmol/L LAB CHEMISTRY METHOD 06/28/2024 12:46 PM [facility] Anion Gap 1(L) 3 - 11 LAB CHEMISTRY METHOD 06/28/2024 12:46 PM [facility] Glucose 99 70 - 100 mg/dL LAB CHEMISTRY METHOD 06/28/2024 12:46 PM [facility] BUN 65(H) 5 - 25 mg/dL LAB CHEMISTRY METHOD 06/28/2024 12:46 PM [facility] Comment:Results verified by repeat testing Creatinine 0.89 0.50 - 1.10 mg/dL LAB CHEMISTRY METHOD 06/28/2024 12:46 PM [facility] eGFR 67 >=60 mL/min/1. 73m2 LAB CHEMISTRY METHOD 06/28/2024 12:46 PM [facility] Comment:Calculation based on the??Chronic Kidney Disease Epidemiology Collaboration (CKD-EPI) equation refit??without adjustment for race. BUN/Creatinine Ratio 73.0 LAB CHEMISTRY METHOD 06/28/2024 12:46 PM [facility] Calcium 8.5 8.5 - 10.5 mg/dL LAB CHEMISTRY METHOD 06/28/2024 12:46 PM [facility] AST (SGOT) 23 10 - 42 unit/L LAB CHEMISTRY METHOD 06/28/2024 12:46 PM [facility] ALT (SGPT) 25 10 - 60 unit/L LAB CHEMISTRY METHOD 06/28/2024 12:46 PM [facility] Alkaline Phosphatase 76 42 - 121 unit/L LAB CHEMISTRY METHOD 06/28/2024 12:46 PM EST [facility] Total Protein 6.4 6.0 - 8.0 g/dL LAB CHEMISTRY METHOD 06/28/2024 12:46 PM EST [facility] Albumin 2.4(L) 3.2 - 5.0 g/dL LAB CHEMISTRY METHOD 06/28/2024 12:46 PM [facility] Total Bilirubin 0.4 0.0 - 1.4 mg/dL LAB CHEMISTRY METHOD 06/28/2024 12:46 PM EST [facility] Blood Venous blood specimen / Unknown Venipuncture / Unknown 06/28/2024 6:19 AM EST 06/28/2024 11:08 AM EST us Viola Tubbs MD LAB BLOOD ORDERABLES Final Resu lt [facility] [address] [place] [address], documented in this encounter Visit Diagnoses Diagnosis Encounter for other general examination documented in this encounter Care Teams Skein Yarn Dyer Relationship Specialty Start Date End Date Dmitry Jason MD [address] [place] [id number] PCP - General Internal Medicine 07/02/24 documented as of this encounter
--- OUTSIDE RECORDS SUMMARY | 2024-08-08 18:56 | XMS_ITS | Clinical Summary ---
Author Organization [address] Address [address] [place] [address] Phone Care Team Providers Care Tester Sound Name Role Phone Dmitry Jason MD Primary Care Provider [phone] Encounters Date Type Department Care Team Description 07/08/2024 Lab Requisition [facility] [address] [place] [address] Viola Tubbs MD Encounter for other general examination 07/05/2024 Lab Requisition [facility] [address] [place] [address] Viola Tubbs MD Encounter for other general examination 07/04/2024 Lab Requisition [facility] [address] [place] [address] Viola Tubbs MD Encounter for other general examination 07/03/2024 Lab Requisition [facility] [address] [place] [address] Viloa Tubbs MD Encounter for other general examination 07/02/2024 Lab Requisition [facility] [address] [place] [address] Viola Tubbs MD Encounter for other general examination 06/29/2024 Lab Requisition [facility] [address] [place] [address] Viola Tubbs MD Encounter for other general examination 06/28/2024 Lab Requisition [facility] [address] [place] [address] Viola Tubbs MD Encounter for other general examination 06/25/2024 Lab Requisition [facility] Lab [address] [place] [address] Viola Tubbs MD Encounter for [...] DTaP,Tdap,and Td Vaccines (1 - Tdap) 1966 Pneumococcal Vaccine: 50+ Ye ars (1 of 1 - PCV) 1997 Zoster Vaccines (1 of 2) 1997 Depression Screening 05/08/2022 Falls Risk Assessment 05/08/2022 [...] patient's age to complete this topic Meningococcal B Vacine Aged Out No lo nger eligible based on patient's age to complete [...] AM EST Encounter for other general examination [facility] DEXA AXIAL SKELETON Routine 10/26/2022 11:00 AM EDT Age-related osteoporosis without current pathological fracture [facility] SCREENING DIGITAL Routine 10/25/2022 4:04 PM [...] 07/08/2024 10:07 AM [facility] RBC 3.50(L) 3.80 - 4.80 [...] LAB HEMETOLOGY METHOD 07/08/2024 10:07 AM EST [facility] Eosinophils Absolute 0.12 0.00 - 0.50 K/mcL LAB HEMETOLOGY METHOD 07/08/2024 10:07 AM EST [facility] Basophils Absolute 0.03 0.00 - 0.20 K/mcL LAB HEMETOLOGY METHOD 07/08/2024 10:07 AM EST [facility] Immature Granulocytes Absolute 0.03 0.00 - 0.03 K/mcL LAB HEMETOLOGY METHOD 07/08/2024 10:07 AM EST [facility] Blood Venous blood specimen / Unknown Venipuncture / Unknown 07/08/2024 6:27 AM EST 07/08/2024 9:00 AM EST Viola Tubbs MD LAB BLOOD ORDERABLES Final Resu lt Performing Organization Address City/[facility]/ZIP Co de Phone Number [facility] [address] [place] [address], [place] [phone] * Magnesium (07/08/2024 6:27 AM EST) Only the most recent of3 resultswithin the time period is included. Magnesium 2.1 1.9 - 2.6 mg/dL LAB CHEMISTRY METHOD 07/08/2024 11:01 AM EST [facility] Blood Venous blood specimen / Unknown Venipuncture / Unknown 07/08/2024 6:27 AM EST 07/08/2024 9:00 AM EST us Viola Tubbs MD LAB BLOOD ORDERABLES Final Resu lt [facility] [address] [place] [address], [place] [phone] * (ABNORMAL) Basic metabolic panel (07/08/2024 6:27 [...] EST Viola Tubbs MD LAB BLOOD ORDERABLES Final Resu lt Performing Organization Address City/[facility]/ZIP Co de Phone Number [facility] [address] [place] [address], [place] [phone] * Thyroid stimulating hormone (06/28/2024 6:19 AM EST) Pathologist [facility] TSH 1.72 0.40 - 4.00 mcIU/mL LAB CHEMISTRY METHOD 06/28/2024 12:29 PM [facility] Blood Venous blood specimen / Unknown Venipuncture / Unknown 06/28/2024 6:19 AM EST 06/28/2024 11:08 AM EST Viola Tubbs MD LAB BLOOD ORDERABLES Final Resu lt Performing Organization Address [facility]/ZIP Co de Phone Number [facility] [address] [place] [address], [place] [phone] * (ABNORMAL) Comprehensive metabolic panel (06/28/2024 6:19 AM EST) Only the most recent of2 resultswithin the time period is included. [facility] Sodium 138 133 - 145 mmol/L LAB CHEMISTRY METHOD 06/28/2024 12:46 PM [facility] Potassium 4.3 3.5 - 5.5 mmol/L LAB CHEMISTRY METHOD 06/28/2024 12:46 PM [facility] Chloride 99 96 - 110 mmol/L LAB CHEMISTRY METHOD 06/28/2024 12:46 PM [facility] CO2 38(H) 21 - 32 mmol/L LAB CHEMISTRY METHOD 06/28/2024 12:46 PM [facility] Anion Gap 1(L) 3 - 11 LAB CHEMISTRY METHOD 06/28/2024 12:46 PM [facility] Glucose 99 70 - 100 mg/dL LAB CHEMISTRY METHOD 06/28/2024 12:46 PM [facility] BUN 65(H) 5 - 25 mg/dL LAB CHEMISTRY METHOD 06/28/2024 12:46 PM [facility] Comment:Results verified by repeat testing Creatinine 0.89 0.50 - 1.10 mg/dL LAB CHEMISTRY METHOD 06/28/2024 12:46 PM [facility] eGFR 67 >=60 mL/min/1. 73m2 LAB CHEMISTRY METHOD 06/28/2024 12:46 PM [facility] Comment:Calculation based on the??Chronic Kidney Disease Epidemiology Collaboration (CKD-EPI) equation refit??without adjustment for race. BUN/Creatinine Ratio 73.0 LAB CHEMISTRY METHOD 06/28/2024 12:46 PM [facility] Calcium 8.5 8.5 - 10.5 mg/dL LAB CHEMISTRY METHOD 06/28/2024 12:46 PM [facility] AST (SGOT) 23 10 - 42 unit/L LAB CHEMISTRY METHOD 06/28/2024 12:46 PM [facility] ALT (SGPT) 25 10 - 60 unit/L LAB CHEMISTRY METHOD 06/28/2024 12:46 PM [facility] Alkaline Phosphatase 76 42 - 121 unit/L LAB CHEMISTRY METHOD 06/28/2024 12:46 PM [facility] Total Protein 6.4 6.0 - 8.0 g/dL LAB CHEMISTRY METHOD 06/28/2024 12:46 PM [facility] Albumin 2.4(L) 3.2 - 5.0 g/dL LAB CHEMISTRY METHOD 06/28/2024 12:46 PM [facility] Total Bilirubin 0.4 0.0 - 1.4 mg/dL LAB CHEMISTRY METHOD 06/28/2024 12:46 PM [facility] Blood Venous blood specimen / Unknown Venipuncture / Unknown 06/28/2024 6:19 AM EST 06/28/2024 11:08 AM EST us Rami A Ashkar MD LAB BLOOD ORDERABLES Final Resu lt [facility] [address] [place] [address], * SABAS DEXA AXIAL SKELETON (10/26/2022 11:00 AM EDT) Anatomical Region Laterality Modality Mammography 10/25/2022 1:52 PM EDT Narrative 10/26/2022 11:00 AM EDT [facility] Diagnostic Imaging Department [address] [place] [address] Patient: ??ANU MOORE ?/Age/Sex: 1945 - 77 - F Unit#: ??[id number] ? Location/Status: ??SPDIMAM/REG CLI ? Mnemonic/Ordering Site: ??MAMDEXAAX/SPMAM Ordering Physician: ??MARCELA MAE [facility] Dexa Axial Skeleton - 10/25/221510 HISTORY: ??The [...] probability of hip fracture of 13.1%. Code 45003 Dictating Physician: ??EDU MATHUR MD Electronically Signed by: ??EDU MATHUR MD Dic Date/Time: ??10/26/22 1059 Sign date/Time: ??10/26/22 1100 Procedure Note Edu Mathur MD - 07/07/2023 [facility] Diagnostic Imaging Department [address] [place] [address] Patient: MAURICE MOORESA LiB./Age/Sex: 1945 - 77 - F Unit#: [id number] Location/Status: SPDIMA/REG CLI [facility]em[facility] Ordering Physician: MARCELA MAE [facility] Dexa Axial Skeleton - 10/25/22 - 1510 HISTORY: The patient is a 77-year-old postmenopausal [...] density of the femurs bilaterally is 0.608 gm/rf2rtqjk is 60% of that of young normals [...] probability of hip fracture of 13.1%. Code 98229 Dictating Physician: EDU MATHUR MD Electronically Signed by: EDU MATHUR MD Dic Date/Time: 10/26/22 1059 Sign date/Time: 10/26/22 1100 us Marcela Mae NP IMG BI PROCEDURES Final Result * [facility] SCREENING DIGITAL (10/25/2022 4:04 PM EDT) Anatomical Region Laterality Modality Mammography 10/25/2022 1:54 PM EDT Narrative 10/25/2022 4:04 PM EDT [facility] Diagnostic Imaging Department [address] [place], [place] [id number] Patient: ??ANU MOORE ?/Age/Sex: 1945 - 77 - F Unit#: ??[id number] ? Location/Status: ??SPDIMAM/REG CLI ? Mnemonic/Ordering Site: [...] the MLO projection. Computer aided detection with [place] 7.2-H and i[employer] s.r.l. 3D 3.1 was employed. TISSUE DENSITY: c. [...] Routine screening mammogram BILATERAL in 1 year. [address]481, 05164 3342F, 7031F Dictating Physician: ??AMANDO PABON MD Electronically Signed by: ??AMANDO PABON MD Dic Date/Time: ??10/25/22 1603 Sign date/Time: ??10/25/22 1604 Procedure Note Amando Pabon MD - 07/07/2023 [facility] Diagnostic Imaging Department [address] [place] [address] Patient: ANU MOORE/Age/Sex: 1945 - 77 - F Unit#: [id number] Location/Status: [facility] Mnemonic/Ordering Site: [facility] Ordering Physician: MARCELA MAE [facility] Screening Digital - 10/25/22 - 1426 EXAM: [facility] Screening Digital EXAM DATE AND TIME: 10/25/2022 [...] the MLO projection. Computer aided detection with [place] 7.2-H and[employer]Go[employer] s.r.l. 3D 3.1 was employed. TISSUE DENSITY: c. [...] Routine screening mammogram BILATERAL in 1 year. 91290, 63097 3342F, 7025F Dictating Physician: AMANDO PABON MD Electronically Signed by: AMANDO PABON MD Dic Date/Time: 10/25/22 1603 Sign date/Time: 10/25/22 1604 us Marcela Mae THEORETICAL PHYSICS TEACHER IMG BI PROCEDURES Final Result from Last 3 Months or Most Recently Relevant to Health Maintenance Insurance MEDICARE [facility] Care Teams Tester Sound Relationship Specialty Start Date End Date Dmitry Jason MD [address] [place] [phone] PCP - General Internal Medicine 07/02/24
--- OUTSIDE RECORDS SUMMARY | 2024-08-08 18:56 | XMS_ITS | Encounter Summary ---
[facility] Address [address] [place] [address] Care Team Providers Care Field Support Technician Name Role Phone Dmitry Jason MD Primary Care Provider [phone] Encounter Details Date Type Department Care Team (Late st Contact Info) Description 07/08/2024 Lab Requisition [facility] - Main Lab [address] [place] [address] Viola Tubbs MD [address] [place] [address] Encounter for other general examination Social History [...] CBC auto differential (07/08/2024 6:27 AM EST) WBC 8.1 4.8 - 10.8 K/[facility] LAB HEMETOLOGY METHOD 07/08/2024 10:07 AM [facility] RBC 3.50(L) 3.80 [...] ORDERABLES Final Resu lt Performing Organization Address [facility]/ZIP Co de Phone Number [facility] [address] [place] [address], * Magnesium (07/08/2024 6:27 AM EST) Magnesium 2.1 1.9 - 2.6 mg/dL LAB CHEMISTRY METHOD 07/08/2024 11:01 AM [facility] Blood Venous blood specimen / Unknown Venipuncture / Unknown 07/08/2024 6:27 AM EST 07/08/2024 9:00 AM EST us Viola Tubbs MD LAB BLOOD ORDERABLES Final Resu lt Performing Organization Address [facility]/ZIP Co de Phone Number [facility] [address] [place] [address], * (ABNORMAL) Basic metabolic panel (07/08/2024 6:27 AM EST) Pathologist [facility] Sodium 138 133 - 145 mmol/L LAB [...] MD LAB BLOOD ORDERABLES Final Resu lt [facility] [address] [place] [address], documented in this encounter Visit Diagnoses Diagnosis Encounter for other general examination documented in this encounter Care Teams Field Support Technician Relationship Specialty Start Date End Date Dmitry Jason MD [address] [place] [phone] PCP - General Internal Medicine 07/02/24 documented as of this encounter
--- OUTSIDE RECORDS SUMMARY | 2024-08-08 18:56 | XMS_ITS | Encounter Summary ---
Author Organization [facility] Address [address] [place] [address] Care Team Providers Care Director Of Product Design Name Role Phone Dmitry Jason MD Primary Care Provider [phone] Encounter Details Date Type Department Care Team (Late st Contact Info) Description 07/04/2024 Lab Requisition [facility] - Main Lab [address] [place] [address] Viola Tubbs MD [address] [place] [address] Encounter for other general examination Social History [...] LAB CHEMISTRY METHOD 07/04/2024 11:50 AM EST [facility] Potassium 4.8 3.5 - 5.5 mmol/L LAB CHEMISTRY METHOD 07/04/2024 11:50 AM EST [facility] Chloride 96 96 - 110 mmol/L LAB CHEMISTRY METHOD 07/04/2024 11:50 AM EST [facility] CO2 42(HH) 21 - 32 mmol/L LAB CHEMISTRY METHOD 07/04/2024 11:50 AM [facility] Anion Gap 1(L) 3 - 11 LAB CHEMISTRY METHOD 07/04/2024 11:50 AM [facility] Glucose 114(H) 70 - 100 mg/dL LAB CHEMISTRY METHOD 07/04/2024 11:50 AM [facility] BUN 22 5 - 25 mg/dL LAB CHEMISTRY METHOD 07/04/2024 11:50 AM [facility] Creatinine 0.66 0.50 - 1.10 mg/dL LAB CHEMISTRY METHOD 07/04/2024 11:50 AM [facility] eGFR 91 >=60 mL/min/1. 73m2 LAB CHEMISTRY METHOD 07/04/2024 11:50 AM [facility] Comment:Calculation based on the??Chronic Kidney Disease Epidemiology Collaboration (CKD-EPI) equation refit??without adjustment for race. BUN/Creatinine Ratio 33.3 LAB CHEMISTRY METHOD 07/04/2024 11:50 AM [facility] Calcium 8.6 8.5 - 10.5 mg/dL LAB CHEMISTRY METHOD 07/04/2024 11:50 AM [facility] Blood Venous blood specimen / Unknown Venipuncture / Unknown 07/04/2024 5:50 AM EST 07/04/2024 9:24 AM EST us Viola Tubbs MD LAB BLOOD ORDERABLES Final Resu lt [facility] [address] [place] [address], [place] [phone] documented in this encounter Visit Diagnoses Diagnosis Encounter for other general examination documented in this encounter Care Teams Director Of Product Design Relationship Specialty Start Date End Date Dmitry Jason MD [address] [place] [phone] PCP - General Internal Medicine 07/02/24 documented as of this encounter
--- OUTSIDE RECORDS SUMMARY | 2024-08-08 18:56 | XMS_ITS | Encounter Summary ---
Author Organization [facility] Address [address] [place] [address] Care Team Providers Care Electrical Technician Name Role Phone Dmitry Jason MD Primary Care Provider [phone] Encounter Details Date Type Department Care Team (Late st Contact Info) Description 07/03/2024 Lab Requisition [facility] - Main Lab [address] [place] [address] Viola Tubbs MD [address] [place] [address] Encounter for other general examination Social History [...] LAB CHEMISTRY METHOD 07/03/2024 12:38 PM EST [facility] Potassium 5.0 3.5 - 5.5 mmol/L LAB CHEMISTRY METHOD 07/03/2024 12:38 PM EST [facility] Chloride 94(L) 96 - 110 mmol/L LAB CHEMISTRY METHOD 07/03/2024 12:38 PM EST [facility] CO2 42(HH) 21 - 32 mmol/L LAB CHEMISTRY METHOD 07/03/2024 12:38 PM [facility] Anion Gap 2(L) 3 - 11 LAB CHEMISTRY METHOD 07/03/2024 12:38 PM [facility] Glucose 92 70 - 100 mg/dL LAB CHEMISTRY METHOD 07/03/2024 12:38 PM [facility] BUN 29(H) 5 - 25 mg/dL LAB CHEMISTRY METHOD 07/03/2024 12:38 PM [facility] Creatinine 0.66 0.50 - 1.10 mg/dL LAB CHEMISTRY METHOD 07/03/2024 12:38 PM [facility] eGFR 91 >=60 mL/min/1. 73m2 LAB CHEMISTRY METHOD 07/03/2024 12:38 PM [facility] Comment:Calculation based on the??Chronic Kidney Disease Epidemiology Collaboration (CKD-EPI) equation refit??without adjustment for race. BUN/Creatinine Ratio 43.9 LAB CHEMISTRY METHOD 07/03/2024 12:38 PM [facility] Calcium 9.2 8.5 - 10.5 mg/dL LAB CHEMISTRY METHOD 07/03/2024 12:38 PM [facility] Blood Venous blood specimen / Unknown Venipuncture / Unknown 07/03/2024 5:55 AM EST 07/03/2024 10:31 AM EST us Viola Tubbs MD LAB BLOOD ORDERABLES Final Resu lt [facility] [address] [place] [address], [place] [phone] documented in this encounter Visit Diagnoses Diagnosis Encounter for other general examination documented in this encounter Care Teams Electrical Technician Relationship Specialty Start Date End Date Dmitry Jason MD [address] [place] [phone] PCP - General Internal Medicine 07/02/24 documented as of this encounter
--- OUTSIDE RECORDS SUMMARY | 2024-08-08 18:56 | XMS_ITS | Encounter Summary ---
Author Organization [facility] Address [address] [place] [address] Care Team Providers Care Marketing Project Manager Name Role Phone Dmitry Jason MD Primary Care Provider [phone] Encounter Details Date Type Department Care Team (Late st Contact Info) Description 07/05/2024 Lab Requisition [facility] - Main Lab [address] [facility] [place] [address] Viola Tubbs MD [address] [place], [place] [phone] Encounter for other general examination Social History [...] examination documented in this encounter Care Teams Marketing Project Manager Relationship Specialty Start Date End Date Dmitry Jason MD [address] [place], [place] [phone] PCP - General Internal Medicine 07/02/24 documented as of this encounter
--- OUTSIDE RECORDS SUMMARY | 2024-08-08 18:56 | XMS_ITS | Encounter Summary ---
Author Organization [facility] Address [address] [place] [address] Care Team Providers Care Skin Care Therapist Name Role Phone Dmitry Jaosn MD Primary Care Provider [phone] Encounter Details Date Type Department Care Team (Late st Contact Info) Description 06/25/2024 Lab Requisition [facility] - Main Lab [address] [place] [address] Viola Tubbs MD [address] [place] [phone] Encounter for other general examination Social History [...] CBC auto differential (06/25/2024 5:55 AM EST) WBC 10.5 4.8 - 10.8 K/[facility] LAB HEMETOLOGY METHOD 06/25/2024 10:51 AM [facility] LAB RBC 4.00 3.80 - 4.80 M/mcL LAB HEMETOLOGY METHOD 06/25/2024 10:51 AM [facility] LAB Hemoglobin 10.7(L) 11.5 - 16.0 g/dL LAB HEMETOLOGY METHOD 06/25/2024 10:51 AM [facility] LAB Hematocrit 36.8 35.0 - 47.0 % LAB HEMETOLOGY METHOD 06/25/2024 10:51 AM [facility] LAB MCV 93.2 79.0 - 98.0 FL LAB HEMETOLOGY METHOD 06/25/2024 10:51 AM [facility] LAB MCH 27.1 27.0 - 32.0 pcg LAB HEMETOLOGY METHOD 06/25/2024 10:51 AM [facility] LAB MCHC 29.1(L) 32.0 - 37.0 g/dL LAB HEMETOLOGY METHOD 06/25/2024 10:51 AM [facility] LAB RDW 19.3(H) 11.0 - 15.0 % LAB HEMETOLOGY METHOD 06/25/2024 10:51 AM [facility] Platelets 174 130 - 400 K/mcL LAB HEMETOLOGY METHOD 06/25/2024 10:51 AM [facility] LAB MPV 10.2 7.0 - 11.0 FL LAB HEMETOLOGY METHOD 06/25/2024 10:51 AM [facility] LAB NRBC 0.0 <1.0 % LAB HEMETOLOGY METHOD 06/25/2024 10:51 AM [facility] LAB NRBC Absolute 0.00 <0.10 K/mcL LAB HEMETOLOGY METHOD 06/25/2024 10:51 AM [facility] Neutrophils Relative 77.4 % LAB HEMETOLOGY METHOD 06/25/2024 10:51 AM [facility] Lymphocytes Relative 9.0 % LAB HEMETOLOGY METHOD 06/25/2024 10:51 AM [facility] Monocytes Relative 11.0 % LAB HEMETOLOGY METHOD 06/25/2024 10:51 AM [facility] Eosinophils Relative 1.5 % LAB HEMETOLOGY METHOD 06/25/2024 10:51 AM [facility] Basophils Relative 0.4 % LAB HEMETOLOGY METHOD 06/25/2024 10:51 AM [facility] Immature Granulocytes Relative 0.7 % LAB HEMETOLOGY METHOD 06/25/2024 10:51 AM [facility] LAB Neutrophils Absolute 8.14(H) 1.50 - 7.00 K/mcL LAB HEMETOLOGY METHOD 06/25/2024 10:51 AM [facility] LAB Lymphocytes Absolute 0.94(L) 1.00 - 5.00 K/mcL LAB HEMETOLOGY METHOD 06/25/2024 10:51 AM [facility] Monocytes Absolute 1.15(H) 0.20 - 1.00 K/mcL LAB HEMETOLOGY METHOD 06/25/2024 10:51 AM [facility] LAB Eosinophils Absolute 0.16 0.00 - 0.50 K/mcL LAB HEMETOLOGY METHOD 06/25/2024 10:51 AM [facility] Basophils Absolute 0.04 0.00 - 0.20 K/mcL LAB HEMETOLOGY METHOD 06/25/2024 10:51 AM [facility] Immature Granulocytes Absolute 0.07(H) 0.00 - 0.03 K/mcL LAB HEMETOLOGY METHOD 06/25/2024 10:51 AM [facility] Blood Venous blood specimen / Unknown Venipuncture / Unknown 06/25/2024 5:55 AM EST 06/25/2024 10:03 AM EST us Viola Tubbs MD LAB BLOOD ORDERABLES Final Resu lt [facility] [address] [place] [address], [place] [phone] * (ABNORMAL) Magnesium (06/25/2024 5:55 AM EST) Magnesium 1.7(L) 1.9 - 2.6 mg/dL LAB CHEMISTRY METHOD 06/25/2024 11:20 AM EST [facility] Blood Venous blood specimen / Unknown Venipuncture / Unknown 06/25/2024 5:55 AM EST 06/25/2024 10:03 AM EST Viola Tubbs MD LAB BLOOD ORDERABLES Final Resu lt Performing Organization Address [facility]/ZIP Co de Phone Number [facility] [address] [place] [address], [place] [phone] * (ABNORMAL) Comprehensive metabolic panel (06/25/2024 5:55 AM EST) Pathologist [facility] Sodium 141 133 - 145 mmol/L LAB CHEMISTRY METHOD 06/25/2024 11:40 AM [facility] Potassium 4.3 3.5 - 5.5 mmol/L LAB CHEMISTRY METHOD 06/25/2024 11:40 AM [facility] Chloride 100 96 - 110 mmol/L LAB CHEMISTRY METHOD 06/25/2024 11:40 AM [facility] CO2 38(H) 21 - 32 mmol/L LAB CHEMISTRY METHOD 06/25/2024 11:40 AM [facility] Anion Gap 3 3 - 11 LAB CHEMISTRY METHOD 06/25/2024 11:40 AM [facility] Glucose 135(H) 70 - 100 mg/dL LAB CHEMISTRY METHOD 06/25/2024 11:40 AM [facility] BUN 31(H) 5 - 25 mg/dL LAB CHEMISTRY METHOD 06/25/2024 11:40 AM [facility] Creatinine 0.72 0.50 - 1.10 mg/dL LAB CHEMISTRY METHOD 06/25/2024 11:40 AM [facility] LAB eGFR 87 >=60 mL/min/1. 73m2 LAB CHEMISTRY METHOD 06/25/2024 11:40 AM [facility] LAB Comment:Calculation based on the??Chronic Kidney Disease Epidemiology Collaboration (CKD-EPI) equation refit??without adjustment for race. BUN/Creatinine Ratio 43.1 LAB CHEMISTRY METHOD 06/25/2024 11:40 AM [facility] Calcium 8.9 8.5 - 10.5 mg/dL LAB CHEMISTRY METHOD 06/25/2024 11:40 AM [facility] AST (SGOT) 20 10 - 42 unit/L LAB CHEMISTRY METHOD 06/25/2024 11:40 AM [facility] ALT (SGPT) 33 10 - 60 unit/L LAB CHEMISTRY METHOD 06/25/2024 11:40 AM [facility] Alkaline Phosphatase 88 42 - 121 unit/L LAB CHEMISTRY METHOD 06/25/2024 11:40 AM [facility] Total Protein 6.9 6.0 - 8.0 g/dL LAB CHEMISTRY METHOD 06/25/2024 11:40 AM [facility] Albumin 2.7(L) 3.2 - 5.0 g/dL LAB CHEMISTRY METHOD 06/25/2024 11:40 AM [facility] Total Bilirubin 0.4 0.0 - 1.4 mg/dL LAB CHEMISTRY METHOD 06/25/2024 11:40 AM [facility] Blood Venous blood specimen / Unknown Venipuncture / Unknown 06/25/2024 5:55 AM EST 06/25/2024 10:03 AM EST us Viola Tubbs MD LAB BLOOD ORDERABLES Final Resu lt [facility] [address] [place] [address], documented in this encounter Visit Diagnoses Diagnosis Encounter for other general examination documented in this encounter Care Teams Skin Care Therapist Relationship Specialty Start Date End Date Dmitry Jason MD [address] [place] [phone] PCP - General Internal Medicine 07/02/24 documented as of this encounter
--- OUTSIDE RECORDS SUMMARY | 2024-08-08 18:56 | XMS_ITS | Encounter Summary ---
Author Organization [facility] Address [address] [place] [address] Care Team Providers Care Cna Instructor Name Role Phone Dmitry Jason MD Primary Care Provider [phone] Encounter Details Date Type Department Care Team (Late st Contact Info) Description 06/29/[address] [facility] - Main Lab [address] [place] [address] Viola Tubbs MD [address] [place] [address] Encounter for other general examination Social History [...] mmol/L LAB CHEMISTRY METHOD 06/29/2024 12:07 PM EST [facility] Potassium 5.1 3.5 - 5.5 mmol/L LAB CHEMISTRY METHOD 06/29/2024 12:07 PM EST [facility] Chloride 102 96 - 110 mmol/L LAB CHEMISTRY METHOD 06/29/2024 12:07 PM EST [facility] CO2 40(H) 21 - 32 mmol/L LAB CHEMISTRY METHOD 06/29/2024 12:07 PM [facility] LAB Anion Gap -2(L) 3 - 11 LAB CHEMISTRY METHOD 06/29/2024 12:07 PM [facility] Glucose 68(L) 70 - 100 mg/dL LAB CHEMISTRY METHOD 06/29/2024 12:07 PM [facility] BUN 59(H) 5 - 25 mg/dL LAB CHEMISTRY METHOD 06/29/2024 12:07 PM [facility] Creatinine 0.83 0.50 - 1.10 mg/dL LAB CHEMISTRY METHOD 06/29/2024 12:07 PM [facility] LAB eGFR 73 >=60 mL/min/1. 73m2 LAB CHEMISTRY METHOD 06/29/2024 12:07 PM [facility] LAB Comment:Calculation based on the??Chronic Kidney Disease Epidemiology Collaboration (CKD-EPI) equation refit??without adjustment for race. BUN/Creatinine Ratio 71.1 LAB CHEMISTRY METHOD 06/29/2024 12:07 PM [facility] Calcium 8.8 8.5 - 10.5 mg/dL LAB CHEMISTRY METHOD 06/29/2024 12:07 PM [facility] Blood Venous blood specimen / Unknown Venipuncture / Unknown 06/29/2024 5:43 AM EST 06/29/2024 9:53 AM EST us Viola Tubbs MD LAB BLOOD ORDERABLES Final Resu lt [facility] [address] [place] [address], [place] [phone] documented in this encounter Visit Diagnoses Diagnosis Encounter for other general examination documented in this encounter Care Teams Cna Instructor Relationship Specialty Start Date End Date Dmitry Jason MD [address] [place] [phone] PCP - General Internal Medicine 07/02/24 documented as of this encounter
== END 2024-08-08 16:05 | disposition home or self-care (01) ==
PROVIDERS: PCP Nurse Practitioner Family; Visit Provider Nurse Practitioner Family
DX: R00.2 Palpitations (principal); I47.10 Supraventricular tachycardia, unspecified; R79.89 Other specified abnormal findings of blood chemistry
CPT/HCPCS: 99213; G2211

== ENCOUNTER → 2024-08-08 15:27 | Outpatient (BNVA) | payer MEDICARE, SELFPAY | PROVIDERS: PCP Internal Medicine; Visit Provider Nurse Practitioner Family | DX: R00.2 Palpitations (principal); I47.10 Supraventricular tachycardia, unspecified; R79.89 Other specified abnormal findings of blood chemistry; J43.9 Emphysema, unspecified; Z99.81 Dependence on supplemental oxygen | CPT/HCPCS: 99212 ==

== ENCOUNTER 2024-08-21 14:29 | Outpatient (AMB) | payer MEDICARE, SELFPAY ==
--- NOTE | 2024-08-21 14:32 | A.OFFVIS_ITS ---
Vital Signs 08/21/24 14:36 Height 5 ft 3 in Weight 79 lb 9.39 oz BMI 14.1 BP 116/78 Blood Pressure Location Rt brachial Position Sitting Pulse 79 Pulse Source Pulse Oximeter Pulse Oximetry (%) 90 L Oxygen Delivery Method Room Air Comment Patient using oxygen Intake Visit Reasons: T2DM Intake Note: Patient presents today for a follow-up on Type 2 Diabetes Mellitus: Last Diabetic eye exam was on: DUE Last Podiatry exam was on: Patient does not see a Learn To Swim Instructor Most recent HbA1c: 8.0%, 08/21/2024 Random Glucose- 267 mg/dL, Today Music Pastor Required: No Accompanied by: Self / Same As Patient Allergies sulfa Allergy (Unknown, Verified 08/08/24 15:35) diarrhea midazolam [From Versed] Adverse Reaction (Severe, Verified 08/08/24 15:35) bradycardia HPI Comments Details: 78-year-old female presents today for diabetic follow up Medical history: Emphysema, SVT, osteopenia, hip fracture A1C today 08/21/24 8.0 from 8.3% 05/22/24 from 10.2 01/2024 Current prescribed medications: Insulin 8units daily, not taking lispro CGM reviewed-0% lows though 70s 2-3 times per week in the morning. Keeps juice beside the bed. Hyperglycemia is most pronounced from 6pm-midnight. She usually is taking a snack at around 4pm-coffee and fiber one and then dinner 6-8pm. Before bed she eats a small snack-pancake, waffle or low sugar ice cream. Weight dropped 83 to 79 pounds ROS CONSTITUTIONAL: Denies weight loss, fever and chills. HEENT: Denies changes in vision and hearing. RESPIRATORY: Denies SOB and cough. CV: Denies palpitations and CP GI: Denies abdominal pain, nausea, vomiting and diarrhea. : Denies dysuria and urinary frequency. MSK: Denies new myalgia and joint pain. SKIN: Denies rash and pruritus. NEUROLOGICAL: Denies headache PSYCHIATRIC: Denies recent changes in mood. PHYSICAL EXAM: GENERAL: Alert and oriented x 3. NAD EYES: EOMI. Anicteric. HENT: Moist mucous membranes. No scleral icterus. No cervical lymphadenopathy. LUNGS: Clear to auscultation bilaterally. CARDIOVASCULAR: Regular rate and rhythm. No murmur. No JVD. ABDOMEN: Soft, non-tender +bs EXTREMITIES: No edema. Non-tender. SKIN: No rashes or lesions. Warm. NEUROLOGIC: No focal neurological deficits. CN II-XII grossly intact PSYCHIATRIC: Cooperative. Appropriate mood and affect [facility] Medical History Abdominal wall bulge Closed intertrochanteric fracture of left hip Chronic hypotension Closed hip fracture Hypotension Hypotension Tachycardia Diabetes Sepsis Pneumonia Acute sinusitis Hypoxemia Pulmonary emphysema Pneumothorax Diabetes mellitus with microalbuminuria, without long-term current use of insulin Vaccination refused by patient Underweight Intermittent palpitations Diabetes mellitus with hyperglycemia, without long-term current use of insulin Hx of fracture of wrist H/O fracture of wrist Surgical History H/O wrist surgery History of femoral hernia repair Family History Father Diabetes mellitus Mother Essential hypertension Sister Breast cancer Social History Household Members: Family Housing: House Do you presently have visiting nurse or other home services: Yes (adalberto CRAWFORD) Alcohol intake: never Comment: bed alarm is not working. put chair alarm on her Patient Tobacco Use Status: Never used Tobacco e-Cigarette/Vaping Use: Never Used Second Hand Smoke Exposure: No Advance Directives Date on File: 06/16/22 service: No Current occupational status: retired Cognitive needs: No Hearing needs: No Vision needs: No Physical Exam Vital Signs: Last Vital Signs Pulse 79 08/21/24 14:36 BP 116/78 08/21/24 14:36 Pulse Ox 90 L 08/21/24 14:36 Oxygen Delivery Method Room Air 08/21/24 14:36 BMI result Body Mass Index 14.1 Results AMB Hemoglobin A1c AMB Hemoglobin A1c 8.0 % Last Edit by ALICE [place] on 08/21/24 14:54 Results Reviewed Results Reviewed: Laboratory Last Values Glucose (Clinic) 267 mg/dL (60-115) H 08/21/24 14:43 Hgb A1c (Clinic) 8.0 % (4.0-6.0) H 08/21/24 14:54 Assessment & Plan Assessment & Plan (1) Type 2 diabetes mellitus: Code(s): E11.9 - Type 2 diabetes mellitus without complications Category: Medical Qualifiers: Diabetes mellitus complication status: with hyperglycemia 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
[2024-08-21 14:36] VITALS: BP 116/78; PULSE 79; O2SAT 90; BMI 14.1
[2024-08-21 14:48] LABS: Glucose, Whole Blood 267 mg/dL (60-115)
--- OUTSIDE RECORDS SUMMARY | 2024-08-21 16:48 | XMS_ITS | Encounter Summary ---
Author Organization [facility] Address [address] [place] [address] Care Team Providers Care Clock And Watch Hands Dipper Name Role Phone Dmitry Jason MD Primary Care Provider [phone] Encounter Details Date Type Department Care Team (Late st Contact Info) Description 07/02/[address] [facility] - Main Lab [address] [place] [address] Viola Tubbs MD [address] [place] [address] Encounter for other general examination Social History [...] LAB CHEMISTRY METHOD 07/02/2024 12:14 PM EST [facility] Potassium 4.9 3.5 - 5.5 mmol/L LAB CHEMISTRY METHOD 07/02/2024 12:14 PM EST [facility] Chloride 97 96 - 110 mmol/L LAB CHEMISTRY METHOD 07/02/2024 12:14 PM EST [facility] CO2 45(HH) 21 - 32 mmol/L LAB CHEMISTRY METHOD 07/02/2024 12:14 PM [facility] Anion Gap -2(L) 3 - 11 LAB CHEMISTRY METHOD 07/02/2024 12:14 PM [facility] Glucose 146(H) 70 - 100 mg/dL LAB CHEMISTRY METHOD 07/02/2024 12:14 PM [facility] BUN 31(H) 5 - 25 mg/dL LAB CHEMISTRY METHOD 07/02/2024 12:14 PM [facility] Creatinine 0.63 0.50 - 1.10 mg/dL LAB CHEMISTRY METHOD 07/02/2024 12:14 PM [facility] LAB eGFR 92 >=60 mL/min/1. 73m2 LAB CHEMISTRY METHOD 07/02/2024 12:14 PM [facility] Comment:Calculation based on the??Chronic Kidney Disease Epidemiology Collaboration (CKD-EPI) equation refit??without adjustment for race. BUN/Creatinine Ratio 49.2 LAB CHEMISTRY METHOD 07/02/2024 12:14 PM [facility] Calcium 9.2 8.5 - 10.5 mg/dL LAB CHEMISTRY METHOD 07/02/2024 12:14 PM [facility] Blood Venous blood specimen / Unknown Venipuncture / Unknown 07/02/2024 6:07 AM EST 07/02/2024 9:39 AM EST us Viola Tubbs MD LAB BLOOD ORDERABLES Final Resu lt [facility] [address] [place] [address], [place] [phone] documented in this encounter Visit Diagnoses Diagnosis Encounter for other general examination documented in this encounter Care Teams Clock And Watch Hands Dipper Relationship Specialty Start Date End Date Dmitry Jason MD [address] [place] [address] PCP - General Internal Medicine 07/02/24 documented as of this encounter
--- OUTSIDE RECORDS SUMMARY | 2024-08-21 16:48 | XMS_ITS | Encounter Summary ---
[facility] Address [address] [place] [address] Care Team Providers Care Credit Review Officer Name Role Phone Dmitry Jason MD Primary Care Provider [phone] Encounter Details Date Type Department Care Team (Late st Contact Info) Description 07/08/2024 Lab Requisition [facility] - Main Lab [address] [place] [address] Viola Tubbs MD [address] [place] [phone] Encounter for other general examination Social History [...] AM EST) WBC 8.1 4.8 - 10.8 K/[facility] LAB HEMETOLOGY METHOD 07/08/2024 10:07 AM [facility] [...] ORDERABLES Final Resu lt Performing Organization Address [facility]/ZIP Co de Phone Number [facility] [address] [place] [address], * Magnesium (07/08/2024 6:27 AM EST) Magnesium 2.1 1.9 - 2.6 mg/dL LAB CHEMISTRY METHOD 07/08/2024 11:01 AM [facility] Blood Venous blood specimen / Unknown Venipuncture / Unknown 07/08/2024 6:27 AM EST 07/08/2024 9:00 AM EST us Viola Tubbs MD LAB BLOOD ORDERABLES Final Resu lt Performing Organization Address [facility]/ZIP Co de Phone Number [facility] [address] [place] [address], * (ABNORMAL) Basic metabolic panel (07/08/2024 6:27 AM EST) Pathologist [facility] Sodium 138 133 - 145 mmol/L LAB [...] MD LAB BLOOD ORDERABLES Final Resu lt [facility] [address] [place] [address], documented in this encounter Visit Diagnoses Diagnosis Encounter for other general examination documented in this encounter Care Teams Credit Review Officer Relationship Specialty Start Date End Date Dmitry Jason MD [address] [place] [phone] PCP - General Internal Medicine 07/02/24 documented as of this encounter
--- OUTSIDE RECORDS SUMMARY | 2024-08-21 16:48 | XMS_ITS | Encounter Summary ---
Author Organization [facility] Address [address] [place] [address] Care Team Providers Care Enterprise Resource Planner Name Role Phone Dmitry Jason MD Primary Care Provider [phone] Encounter Details Date Type Department Care Team (Late st Contact Info) Description 06/29/2024 Lab Requisition [facility] - Main Lab [address] [place] [address] Viola Tubbs MD [address] [place] [phone] Encounter for other general examination Social History [...] LAB CHEMISTRY METHOD 06/29/2024 12:07 PM EST [facility] Potassium 5.1 3.5 - 5.5 mmol/L LAB CHEMISTRY METHOD 06/29/2024 12:07 PM EST [facility] Chloride 102 96 - 110 mmol/L LAB CHEMISTRY METHOD 06/29/2024 12:07 PM EST [facility] CO2 40(H) 21 - 32 mmol/L LAB CHEMISTRY METHOD 06/29/2024 12:07 PM [facility] Anion Gap -2(L) 3 - 11 LAB CHEMISTRY METHOD 06/29/2024 12:07 PM [facility] Glucose 68(L) 70 - 100 mg/dL LAB CHEMISTRY METHOD 06/29/2024 12:07 PM [facility] BUN 59(H) 5 - 25 mg/dL LAB CHEMISTRY METHOD 06/29/2024 12:07 PM [facility] Creatinine 0.83 0.50 - 1.10 mg/dL LAB CHEMISTRY METHOD 06/29/2024 12:07 PM [facility] LAB eGFR 73 >=60 mL/min/1. 73m2 LAB CHEMISTRY METHOD 06/29/2024 12:07 PM [facility] Comment:Calculation based on the??Chronic Kidney Disease Epidemiology Collaboration (CKD-EPI) equation refit??without adjustment for race. BUN/Creatinine Ratio 71.1 LAB CHEMISTRY METHOD 06/29/2024 12:07 PM [facility] Calcium 8.8 8.5 - 10.5 mg/dL LAB CHEMISTRY METHOD 06/29/2024 12:07 PM [facility] Blood Venous blood specimen / Unknown Venipuncture / Unknown 06/29/2024 5:43 AM EST 06/29/2024 9:53 AM EST us Viola Tubbs MD LAB BLOOD ORDERABLES Final Resu lt [facility] [address] [place] [address], [place] [phone] documented in this encounter Visit Diagnoses Diagnosis Encounter for other general examination documented in this encounter Care Teams Enterprise Resource Planner Relationship Specialty Start Date End Date Dmitry Jason MD [address] [place] [phone] PCP - General Internal Medicine 07/02/24 documented as of this encounter
--- OUTSIDE RECORDS SUMMARY | 2024-08-21 16:48 | XMS_ITS | Encounter Summary ---
Author Organization [facility] Address [address] [place] [address] Care Team Providers Care Intelligence Director Name Role Phone Dmitry Jason MD Primary Care Provider [phone] Encounter Details Date Type Department Care Team (Late st Contact Info) Description 07/05/2024 Lab Requisition [facility] - Main Lab [address] [facility] [place] [address] Viola Tubbs MD [address] [place], [place] [phone] Encounter for other general examination Social History [...] examination documented in this encounter Care Teams Intelligence Director Relationship Specialty Start Date End Date Dmitry Jason MD [address] [place], [place] [phone] PCP - General Internal Medicine 07/02/24 documented as of this encounter
--- OUTSIDE RECORDS SUMMARY | 2024-08-21 16:48 | XMS_ITS | Encounter Summary ---
Author Organization [facility] Address [address] [place] [address] Care Team Providers Care Business Excellence Leader Name Role Phone Dmitry Jason MD Primary Care Provider [phone] Encounter Details Date Type Department Care Team (Late st Contact Info) Description 06/28/2024 Lab Requisition [facility] - Main Lab [address] [facility] [place] [address] Viola Tubbs MD [address] [place] [address] Encounter for other general examination Social History [...] K/mcL LAB HEMETOLOGY METHOD 06/28/2024 11:53 AM [facility] LAB RBC 3.70(L) 3.80 - 4.80 M/mcL LAB HEMETOLOGY METHOD 06/28/2024 11:53 AM [facility] LAB Hemoglobin 10.1(L) 11.5 - 16.0 g/dL LAB HEMETOLOGY METHOD 06/28/2024 11:53 AM [facility] LAB Hematocrit 35.5 35.0 - 47.0 % LAB HEMETOLOGY METHOD 06/28/2024 11:53 AM [facility] LAB MCV 95.9 79.0 - 98.0 FL LAB HEMETOLOGY METHOD 06/28/2024 11:53 AM [facility] LAB MCH 27.3 27.0 - 32.0 pcg LAB HEMETOLOGY METHOD 06/28/2024 11:53 AM [facility] LAB MCHC 28.5(L) 32.0 - 37.0 g/dL LAB HEMETOLOGY METHOD 06/28/2024 11:53 AM [facility] LAB RDW 18.8(H) 11.0 - 15.0 % LAB HEMETOLOGY METHOD 06/28/2024 11:53 AM [facility] Platelets 136 130 - 400 K/mcL LAB HEMETOLOGY METHOD 06/28/2024 11:53 AM [facility] LAB MPV 9.9 7.0 - 11.0 FL LAB HEMETOLOGY METHOD 06/28/2024 11:53 AM [facility] NRBC 0.0 <1.0 % LAB HEMETOLOGY METHOD 06/28/2024 11:53 AM [facility] LAB NRBC Absolute 0.00 <0.10 K/mcL LAB HEMETOLOGY METHOD 06/28/2024 11:53 AM [facility] Neutrophils Relative 81.9 % LAB HEMETOLOGY METHOD 06/28/2024 11:53 AM [facility] Lymphocytes Relative 8.0 % LAB HEMETOLOGY METHOD 06/28/2024 11:53 AM [facility] Monocytes Relative 9.3 % LAB HEMETOLOGY METHOD 06/28/2024 11:53 AM [facility] Eosinophils Relative 0.1 % LAB HEMETOLOGY METHOD 06/28/2024 11:53 AM [facility] Basophils Relative 0.1 % LAB HEMETOLOGY METHOD 06/28/2024 11:53 AM [facility] Immature Granulocytes Relative 0.6 % LAB HEMETOLOGY METHOD 06/28/2024 11:53 AM [facility] Neutrophils Absolute 6.51 1.50 - 7.00 K/mcL LAB HEMETOLOGY METHOD 06/28/2024 11:53 AM [facility] Lymphocytes Absolute 0.64(L) 1.00 - 5.00 K/mcL LAB HEMETOLOGY METHOD 06/28/2024 11:53 AM [facility] Monocytes Absolute 0.74 0.20 - 1.00 K/mcL LAB HEMETOLOGY METHOD 06/28/2024 11:53 AM [facility] Eosinophils Absolute 0.01 0.00 - 0.50 K/mcL LAB HEMETOLOGY METHOD 06/28/2024 11:53 AM [facility] Basophils Absolute 0.01 0.00 - 0.20 K/mcL LAB HEMETOLOGY METHOD 06/28/2024 11:53 AM [facility] Immature Granulocytes Absolute 0.05(H) 0.00 - 0.03 K/mcL LAB HEMETOLOGY METHOD 06/28/2024 11:53 AM [facility] Blood Venous blood specimen / Unknown Venipuncture / Unknown 06/28/2024 6:19 AM EST 06/28/2024 11:08 AM EST us Viola Tubbs MD LAB BLOOD ORDERABLES Final Resu lt Performing Organization Address City/[facility]/ZIP Co de Phone Number [facility] [address] [place] [address], [place] [phone] * Thyroid stimulating hormone (06/28/2024 6:19 AM EST) TSH 1.72 0.40 - 4.00 mcIU/mL LAB CHEMISTRY METHOD 06/28/2024 12:[address] [facility] Blood Venous blood specimen / Unknown Venipuncture / Unknown 06/28/2024 6:19 AM EST 06/28/2024 11:08 AM EST us Viola Tubbs MD LAB BLOOD ORDERABLES Final Resu lt Performing Organization Address [facility]/ZIP Co de Phone Number [facility] [address] [place] [address], [place] [phone] * Magnesium (06/28/2024 6:19 AM EST) [facility] Magnesium 2.2 1.9 - 2.6 mg/dL LAB CHEMISTRY METHOD 06/28/2024 12:[address] [facility] Blood Venous blood specimen / Unknown Venipuncture / Unknown 06/28/2024 6:19 AM EST 06/28/2024 11:08 AM EST us Viola Tubbs MD LAB BLOOD ORDERABLES Final Resu lt Performing Organization Address City/[facility]/ZIP Co de Phone Number [facility] [address] [place] [address], [place] [phone] * (ABNORMAL) Comprehensive metabolic panel (06/28/2024 6:19 AM EST) Sodium 138 133 - 145 mmol/L LAB CHEMISTRY METHOD 06/28/2024 12:46 PM [facility] Potassium 4.3 3.5 - 5.5 mmol/L LAB CHEMISTRY METHOD 06/28/2024 12:46 PM [facility] Chloride 99 96 - 110 mmol/L LAB CHEMISTRY METHOD 06/28/2024 12:46 PM [facility] CO2 38(H) 21 - 32 mmol/L LAB CHEMISTRY METHOD 06/28/2024 12:46 PM [facility] Anion Gap 1(L) 3 - 11 LAB CHEMISTRY METHOD 06/28/2024 12:46 PM [facility] Glucose 99 70 - 100 mg/dL LAB CHEMISTRY METHOD 06/28/2024 12:46 PM [facility] BUN 65(H) 5 - 25 mg/dL LAB CHEMISTRY METHOD 06/28/2024 12:46 PM [facility] Comment:Results verified by repeat testing Creatinine 0.89 0.50 - 1.10 mg/dL LAB CHEMISTRY METHOD 06/28/2024 12:46 PM [facility] eGFR 67 >=60 mL/min/1. 73m2 LAB CHEMISTRY METHOD 06/28/2024 12:46 PM [facility] Comment:Calculation based on the??Chronic Kidney Disease Epidemiology Collaboration (CKD-EPI) equation refit??without adjustment for race. BUN/Creatinine Ratio 73.0 LAB CHEMISTRY METHOD 06/28/2024 12:46 PM [facility] Calcium 8.5 8.5 - 10.5 mg/dL LAB CHEMISTRY METHOD 06/28/2024 12:46 PM [facility] AST (SGOT) 23 10 - 42 unit/L LAB CHEMISTRY METHOD 06/28/2024 12:46 PM [facility] ALT (SGPT) 25 10 - 60 unit/L LAB CHEMISTRY METHOD 06/28/2024 12:46 PM [facility] Alkaline Phosphatase 76 42 - 121 unit/L LAB CHEMISTRY METHOD 06/28/2024 12:[address] [facility] Total Protein 6.4 6.0 - 8.0 g/dL LAB CHEMISTRY METHOD 06/28/2024 12:[address] [facility] Albumin 2.4(L) 3.2 - 5.0 g/dL LAB CHEMISTRY METHOD 06/28/2024 12:46 PM [facility] Total Bilirubin 0.4 0.0 - 1.4 mg/dL LAB CHEMISTRY METHOD 06/28/2024 12:[address] [facility] Blood Venous blood specimen / Unknown Venipuncture / Unknown 06/28/2024 6:19 AM EST 06/28/2024 11:08 AM EST us Viola Tubbs MD LAB BLOOD ORDERABLES Final Resu lt [facility] [address] [place] [address], documented in this encounter Visit Diagnoses Diagnosis Encounter for other general examination documented in this encounter Care Teams Business Excellence Leader Relationship Specialty Start Date End Date Dmitry Jason MD [address] [place] [phone] PCP - General Internal Medicine 07/02/24 documented as of this encounter
--- OUTSIDE RECORDS SUMMARY | 2024-08-21 16:48 | XMS_ITS | Encounter Summary ---
Author Organization [facility] Address [address] [place] [address] Care Team Providers Care Grab Driver Name Role Phone Dmitry Jason MD Primary Care Provider [phone] Encounter Details Date Type Department Care Team (Late st Contact Info) Description 06/25/2024 Lab Requisition [facility] - Main Lab [address] [place] [address] Viola Tubbs MD [address] [place] [address] Encounter for other general examination Social History [...] AM EST) WBC 10.5 4.8 - 10.8 K/[facility] LAB HEMETOLOGY METHOD 06/25/2024 10:51 AM [facility] RBC 4.00 3.80 - 4.80 [...] 06/25/2024 10:51 AM [facility] Monocytes Relative 11.0 % LAB [...] MD LAB BLOOD ORDERABLES Final Resu lt [facility] [address] [place] [address], [place] [phone] * (ABNORMAL) Magnesium (06/25/2024 5:55 AM EST) Magnesium 1.7(L) 1.9 - 2.6 mg/dL LAB CHEMISTRY METHOD 06/25/2024 11:20 AM EST [facility] Blood Venous blood specimen / Unknown Venipuncture / Unknown 06/25/2024 5:55 AM EST 06/25/2024 10:03 AM EST Viola Tubbs MD LAB BLOOD ORDERABLES Final Resu lt Performing Organization Address [facility]/ZIP Co de Phone Number [facility] [address] [place] [address], [place] [phone] * (ABNORMAL) Comprehensive metabolic panel (06/25/2024 5:55 AM EST) Pathologist [facility] Sodium 141 133 - 145 mmol/L LAB [...] ORDERABLES Final Resu lt [facility] HOSP[facility] LAB [address] [place] [address], documented in this encounter Visit Diagnoses Diagnosis Encounter for other general examination documented in this encounter Care Teams Grab Driver Relationship Specialty Start Date End Date Dmitry Jason MD [address] [place] [address] PCP - General Internal Medicine 07/02/24 documented as of this encounter
--- OUTSIDE RECORDS SUMMARY | 2024-08-21 16:49 | XMS_ITS | Clinical Summary ---
Author Organization [address] Address [address] [place] [address] Phone Care Team Providers Care Bus Aide Name Role Phone Dmitry Jason MD Primary Care Provider [phone] Encounters Date Type Department Care Team Description 07/08/2024 Lab Requisition [facility] Lab [address] [place] [address] Viola Tubbs MD Encounter for other general examination 07/05/2024 Lab Requisition [facility] [address] [place] [address] Viola Tubbs MD Encounter for other general examination 07/04/2024 Lab Requisition [facility] [address] [place] [address] Viola Tubbs MD Encounter for other general examination 07/03/2024 Lab Requisition [facility] [address] [place] [address] Viola Tubbs MD Encounter for other general examination 07/02/2024 Lab Requisition [facility] [address] [place] [address] Viola Tubbs MD Encounter for other general examination 06/29/2024 Lab Requisition [facility] [address] [place] [address] Viola Tubbs MD Encounter for other general examination 06/28/2024 Lab Requisition [facility] [address] [place] [address] Viola Tubbs MD Encounter for other general examination 06/25/2024 Lab Requisition [facility] - Main Lab [address] [place] [address] Viola Tubbs MD Encounter for [...] AM EST Encounter for other general examination [facility] DEXA AXIAL SKELETON Routine 10/26/2022 11:00 AM EDT Age-related osteoporosis without current pathological fracture [facility] SCREENING DIGITAL Routine 10/25/2022 4:04 PM [...] 10:07 AM [facility] RBC 3.50(L) 3.80 - 4.80 [...] LAB HEMETOLOGY METHOD 07/08/2024 10:07 AM EST [facility] Eosinophils Absolute 0.12 0.00 - 0.50 K/mcL LAB HEMETOLOGY METHOD 07/08/2024 10:07 AM EST [facility] Basophils Absolute 0.03 0.00 - 0.20 K/mcL LAB HEMETOLOGY METHOD 07/08/2024 10:07 AM EST [facility] Immature Granulocytes Absolute 0.03 0.00 - 0.03 K/mcL LAB HEMETOLOGY METHOD 07/08/2024 10:07 AM EST [facility] Blood Venous blood specimen / Unknown Venipuncture / Unknown 07/08/2024 6:27 AM EST 07/08/2024 9:00 AM EST Viola Tubbs MD LAB BLOOD ORDERABLES Final Resu lt Performing Organization Address City/[facility]/ZIP Co de Phone Number [facility] [address] [place] [address], [place] [phone] * Magnesium (07/08/2024 6:27 AM EST) Only the most recent of3 resultswithin the time period is included. Magnesium 2.1 1.9 - 2.6 mg/dL LAB CHEMISTRY METHOD 07/08/2024 11:01 AM EST [facility] Blood Venous blood specimen / Unknown Venipuncture / Unknown 07/08/2024 6:27 AM EST 07/08/2024 9:00 AM EST us Viola Tubbs MD LAB BLOOD ORDERABLES Final Resu lt [facility] [address] [place] [address], [place] [phone] * (ABNORMAL) Basic metabolic panel (07/08/2024 6:27 [...] ORDERABLES Final Resu lt Performing Organization Address City/[facility]/ZIP Co de Phone Number [facility] [address] [place] [address], [place] [phone] * Thyroid stimulating hormone (06/28/2024 6:19 AM EST) Pathologist [facility] TSH 1.72 0.40 - 4.00 mcIU/mL LAB CHEMISTRY METHOD 06/28/2024 12:29 PM [facility] Blood Venous blood specimen / Unknown Venipuncture / Unknown 06/28/2024 6:19 AM EST 06/28/2024 11:08 AM EST Viola Tubbs MD LAB BLOOD ORDERABLES Final Resu lt Performing Organization Address [facility]/ZIP Co de Phone Number [facility] [address] [place] [address], [place] [phone] * (ABNORMAL) Comprehensive metabolic panel (06/28/2024 6:19 AM EST) Only the most recent of2 resultswithin the time period is included. [facility] Sodium 138 133 - 145 mmol/L LAB CHEMISTRY METHOD 06/28/2024 12:46 PM [facility] Potassium 4.3 3.5 - 5.5 mmol/L LAB CHEMISTRY METHOD 06/28/2024 12:46 PM [facility] Chloride 99 96 - 110 mmol/L LAB CHEMISTRY METHOD 06/28/2024 12:46 PM [facility] CO2 38(H) 21 - 32 mmol/L LAB CHEMISTRY METHOD 06/28/2024 12:46 PM [facility] Anion Gap 1(L) 3 - 11 LAB CHEMISTRY METHOD 06/28/2024 12:46 PM [facility] Glucose 99 70 - 100 mg/dL LAB CHEMISTRY METHOD 06/28/2024 12:46 PM [facility] BUN 65(H) 5 - 25 mg/dL LAB CHEMISTRY METHOD 06/28/2024 12:46 PM [facility] LAB Comment:Results verified by repeat testing Creatinine 0.89 0.50 - 1.10 mg/dL LAB CHEMISTRY METHOD 06/28/2024 12:46 PM [facility] LAB eGFR 67 >=60 mL/min/1. 73m2 LAB CHEMISTRY METHOD 06/28/2024 12:46 PM [facility] Comment:Calculation based on the??Chronic Kidney Disease Epidemiology Collaboration (CKD-EPI) equation refit??without adjustment for race. BUN/Creatinine Ratio 73.0 LAB CHEMISTRY METHOD 06/28/2024 12:46 PM [facility] Calcium 8.5 8.5 - 10.5 mg/dL LAB CHEMISTRY METHOD 06/28/2024 12:46 PM [facility] AST (SGOT) 23 10 - 42 unit/L LAB CHEMISTRY METHOD 06/28/2024 12:46 PM [facility] ALT (SGPT) 25 10 - 60 unit/L LAB CHEMISTRY METHOD 06/28/2024 12:46 PM [facility] Alkaline Phosphatase 76 42 - 121 unit/L LAB CHEMISTRY METHOD 06/28/2024 12:46 PM [facility] Total Protein 6.4 6.0 - 8.0 g/dL LAB CHEMISTRY METHOD 06/28/2024 12:46 PM [facility] Albumin 2.4(L) 3.2 - 5.0 g/dL LAB CHEMISTRY METHOD 06/28/2024 12:46 PM [facility] Total Bilirubin 0.4 0.0 - 1.4 mg/dL LAB CHEMISTRY METHOD 06/28/2024 12:46 PM [facility] Blood Venous blood specimen / Unknown Venipuncture / Unknown 06/28/2024 6:19 AM EST 06/28/2024 11:08 AM EST us Rami A Ashkar MD LAB BLOOD ORDERABLES Final Resu lt [facility] ([facility]) HOSPITAL LAB [address] [place] [address], * SABAS DEXA AXIAL SKELETON (10/26/2022 11:00 AM EDT) Anatomical Region Laterality Modality Mammography 10/25/2022 1:52 PM EDT Narrative 10/26/2022 11:00 AM EDT [facility] Diagnostic Imaging Department [address] [place] [address] Patient: ??ANU MOORE ?/Age/Sex: 1945 - 77 - F Unit#: ??[id number] ? Location/Status: ??SPDIMAM/REG CLI ? Mnemonic/Ordering Site: ??MAMDEXAAX/SPMAM Ordering Physician: ??MARCELA MAE [facility] Dexa Axial Skeleton - 10/25/221510 HISTORY: ??The [...] probability of hip fracture of 13.1%. Code 22360 Dictating Physician: ??EDU MATHUR MD Electronically Signed by: ??EDU MATHUR MD Dic Date/Time: ??10/26/22 1059 Sign date/Time: ??10/26/22 1100 Procedure Note Edu Mathur MD - 07/07/2023 [facility] Diagnostic Imaging Department [address] [place] [address] Patient: MAURICE MOORESA LiB./Age/Sex: 1945 - 77 - F Unit#: [id number] Location/Status: SPDIMA/REG CLI [facility] Ordering Physician: MARCELA MAE [facility] Dexa Axial Skeleton - 10/25/22 - 1513 HISTORY: The patient is a 77-year-old postmenopausal [...] density of the femurs bilaterally is 0.608 gm/[id number] is 60% of that of young normals [...] probability of hip fracture of 13.1%. Code 88188 Dictating Physician: EDU MATHUR MD Electronically Signed by: EDU MATHUR MD Dic Date/Time: 10/26/22 1059 Sign date/Time: 10/26/22 1100 us Marcela Mae NP IMG BI PROCEDURES Final Result * SABAS SCREENING DIGITAL (10/25/2022 4:04 PM EDT) Anatomical Region Laterality Modality Mammography 10/25/2022 1:54 PM EDT Narrative 10/25/2022 4:04 PM EDT [facility] Diagnostic Imaging Department [address] [place], [place] [id number] Patient: ??ANU MOORE ?/Age/Sex: 1945 - 77 - F Unit#: ??[id number] ? Location/Status: ??SPDIMAM/REG CLI ? Mnemonic/Ordering Site: [...] the MLO projection. Computer aided detection with [employer] 7.2-H and [employer] 3D 3.1 was employed. TISSUE DENSITY: c. [...] Routine screening mammogram BILATERAL in 1 year. 69047, 03605 3342F, 7035F Dictating Physician: ??AMANDO PABON MD Electronically Signed by: ??AMANDO PABON MD Dic Date/Time: ??10/25/22 1603 Sign date/Time: ??10/25/22 1604 Procedure Note Amando Pabon MD - 07/07/2023 [facility] Diagnostic Imaging Department [address] [place] [address] Patient: ANU MOORE/Age/Sex: 1945 - 77 - F Unit#: [id number] Location/Status: [facility] Mnemonic/Ordering Site: [facility] Ordering Physician: MARCELA MAE [facility] Screening Digital - 10/25/22 - 1426 EXAM: [facility] Screening Digital EXAM DATE AND TIME: 10/25/2022 [...] the MLO projection. Computer aided detection with [employer] 7[employer]2-H and[employer] 3D 3.1 was employed. TISSUE DENSITY: c. [...] Routine screening mammogram BILATERAL in 1 year. 07023, 84111 3342F, 7025F Dictating Physician: AMANDO PABON MD Electronically Signed by: AMANDO PABON MD Dic Date/Time: 10/25/22 1603 Sign date/Time: 10/25/22 1604 us Marcela Mae RIG OPERATOR IMG BI PROCEDURES Final Result from Last 3 Months or Most Recently Relevant to Health Maintenance Insurance MEDICARE [facility] Care Teams Bus Aide Relationship Specialty Start Date End Date Dmitry Jason MD [address] [place] [phone] PCP - General Internal Medicine 07/02/24
--- OUTSIDE RECORDS SUMMARY | 2024-08-21 16:49 | XMS_ITS | Encounter Summary ---
Author Organization [facility] Address [address] [place] [address] Care Team Providers Care Mud Mill Tender Name Role Phone Dmitry Jason MD Primary Care Provider [phone] Encounter Details Date Type Department Care Team (Late st Contact Info) Description 07/03/2024 Lab Requisition [facility] - Main Lab [address] [place] [address] iVola Tubbs MD [address] [place] [address] Encounter for other general examination Social History [...] LAB CHEMISTRY METHOD 07/03/2024 12:38 PM EST [facility] Potassium 5.0 3.5 - 5.5 mmol/L LAB CHEMISTRY METHOD 07/03/2024 12:38 PM EST [facility] Chloride 94(L) 96 - 110 mmol/L LAB CHEMISTRY METHOD 07/03/2024 12:38 PM EST [facility] CO2 42(HH) 21 - [...] MD LAB BLOOD ORDERABLES Final Resu lt [facility] [address] [place] [address], [place] [phone] documented in this encounter Visit Diagnoses Diagnosis Encounter for other general examination documented in this encounter Care Teams Mud Mill Tender Relationship Specialty Start Date End Date Dmitry Jason MD [address] [place] [phone] PCP - General Internal Medicine 07/02/24 documented as of this encounter
--- OUTSIDE RECORDS SUMMARY | 2024-08-21 16:49 | XMS_ITS | Encounter Summary ---
Author Organization [facility] Address [address] [place] [address] Care Team Providers Care Soldering Machine Operator Name Role Phone Dmitry Jason MD Primary Care Provider [phone] Encounter Details Date Type Department Care Team (Late st Contact Info) Description 07/04/2024 Lab Requisition [facility] - Main Lab [address] [place] [address] Viola Tubbs MD [address] [place] [phone] Encounter for other general examination Social History [...] LAB CHEMISTRY METHOD 07/04/2024 11:50 AM EST [facility] Potassium 4.8 3.5 - 5.5 mmol/L LAB CHEMISTRY METHOD 07/04/2024 11:50 AM EST [facility] Chloride 96 96 - 110 mmol/L LAB CHEMISTRY METHOD 07/04/2024 11:50 AM EST [facility] CO2 42(HH) 21 - 32 mmol/L LAB CHEMISTRY METHOD 07/04/2024 11:50 AM [facility] LAB Anion Gap 1(L) 3 - 11 LAB CHEMISTRY METHOD 07/04/2024 11:50 AM [facility] LAB Glucose 114(H) 70 - 100 mg/dL LAB CHEMISTRY METHOD 07/04/2024 11:50 AM [facility] LAB BUN 22 5 - 25 mg/dL LAB CHEMISTRY METHOD 07/04/2024 11:50 AM [facility] LAB Creatinine 0.66 0.50 - 1.10 mg/dL LAB CHEMISTRY METHOD 07/04/2024 11:50 AM [facility] LAB eGFR 91 >=60 mL/min/1. 73m2 LAB CHEMISTRY METHOD 07/04/2024 11:50 AM [facility] LAB Comment:Calculation based on the??Chronic Kidney Disease Epidemiology Collaboration (CKD-EPI) equation refit??without adjustment for race. BUN/Creatinine Ratio 33.3 LAB CHEMISTRY METHOD 07/04/2024 11:50 AM [facility] LAB Calcium 8.6 8.5 - 10.5 mg/dL LAB CHEMISTRY METHOD 07/04/2024 11:50 AM [facility] LAB Blood Venous blood specimen / Unknown Venipuncture / Unknown 07/04/2024 5:50 AM EST 07/04/2024 9:24 AM EST us Viola Tubbs MD LAB BLOOD ORDERABLES Final Resu lt [facility] [address] [place] [address], [place] [phone] documented in this encounter Visit Diagnoses Diagnosis Encounter for other general examination documented in this encounter Care Teams Soldering Machine Operator Relationship Specialty Start Date End Date Dmitry Jason MD [address] [place] [phone] PCP - General Internal Medicine 07/02/24 documented as of this encounter
== END 2024-08-21 15:12 | disposition home or self-care (01) ==
LOC: HO.ENCR 14:30
PROVIDERS: PCP Nurse Practitioner Family; Visit Provider Internal Medicine
DX: E11.65 Type 2 diabetes mellitus with hyperglycemia (principal); Z79.4 Long term (current) use of insulin

== ENCOUNTER → 2024-08-21 14:29 | Outpatient (BNVA) | payer MEDICARE, SELFPAY | PROVIDERS: PCP Nurse Practitioner Family; Visit Provider Internal Medicine | DX: E11.65 Type 2 diabetes mellitus with hyperglycemia (principal); Z79.4 Long term (current) use of insulin | CPT/HCPCS: 82947; 83036; 99212 ==

== ENCOUNTER 2024-08-28 08:11 | Outpatient (REF) | payer MEDICARE, SELFPAY | END 2024-08-28 08:12 | disposition home or self-care (01) | LOC: HO.HOSX 08:11 | PROVIDERS: Visit Provider Physician Assistant | DX: Z13.89 Encounter for screening for other disorder (principal) ==

== ENCOUNTER 2024-08-30 14:06 | Outpatient (AMB) | payer MEDICARE, SELFPAY ==
--- NOTE | 2024-08-30 14:26 | A.OFFVIS_ITS ---
Vital Signs 08/30/24 14:29 Height 5 ft 3 in Weight 79 lb BMI 14.0 Intake Visit Reasons: OV-LT tibial plateau fx DOI 06/24/24 -w/xray Intake Note: Anu is a 79 year old female who presents today for a follow up of her Left Knee. She is s/p left tibial plateau fracture, DOI 06/24/24. At her last visit she was fit for a hinged knee brace and advised to remain toe touch weight bearing with a walker. She may perform non weight bearing ROM. Patient reports about 2 days ago she fumbled with getting into her house causing her to fall on her right leg. States upon applying weight to her right leg she has pain from her ankle up to her knee. Allergies sulfa Allergy (Unknown, Verified 08/30/24 14:29) diarrhea midazolam [From Versed] Adverse Reaction (Severe, Verified 08/30/24 14:29) bradycardia Medication List - Last Reconciled 09/09/24 by Sophia Israel PA-C acarbose 25 mg PO DAILY acetaminophen 650 mg PO Q6H PRN ascorbic acid (vitamin C) 500 mg PO DAILY aspirin 81 mg PO BID biotin 1,000 mcg PO DAILY blood sugar diagnostic Check fasting blood sugar four times daily cholecalciferol (vitamin D3) (Vitamin D3) 25 mcg PO DAILY dextromethorphan-guaifenesin 10-100 mg/5 mL 10 mL PO Q4H PRN FreeStyle Lancets (lancets) three times daily NS FreeStyle Silivna 3 [place] (blood-glucose,ekg monitor,cont) As directed NS FreeStyle Silvina 3 Sensor (blood-glucose sensor) every 14 days NS FreeStyle Lite Meter (blood-glucose meter) to check blood glucose 3x daily NS FreeStyle Lite Strips (blood sugar diagnostic) test 3 times daily NS FreeStyle Test (blood sugar diagnostic) four times daily NS insulin glargine (Lantus Solostar U-100 Insulin) 8 units subcut DAILY lancets Check blood sugar four times daily loperamide 2 mg PO Q6H PRN lutein 20 mg PO DAILY magnesium oxide 400 mg PO BID metoprolol tartrate 25 mg PO BID 30 days uk-bsm-yzaub-calcium carb-K1 400 mcg-500 mg calcium-20 mcg (Women's 50 Plus Multivitamin) 1 tab PO DAILY pen needle, diabetic (Comfort EZ Pen [place]) once daily pen needle, diabetic (BD Ultra-Fine Mini Pen Needle) As directed HPI HPI OV-LT tibial plateau fx DOI 06/24/24 -w/xray: Details: 79-year-old female returns to the office today for a follow-up left tibial plateau fracture. She states she has been ambulating weight-bearing as tolerated without any pain or concerns. She did however fall and complains of right ankle pain and swelling. [facility] Medical History Abdominal wall bulge Closed intertrochanteric fracture of left hip Chronic hypotension Closed hip fracture Hypotension Hypotension Tachycardia Diabetes Sepsis Pneumonia Acute sinusitis Hypoxemia Pulmonary emphysema Pneumothorax Diabetes mellitus with microalbuminuria, without long-term current use of insulin Vaccination refused by patient Underweight Intermittent palpitations Diabetes mellitus with hyperglycemia, without long-term current use of insulin Hx of fracture of wrist H/O fracture of wrist Surgical History H/O wrist surgery History of femoral hernia repair Family History Father Diabetes mellitus Mother Essential hypertension Sister Breast cancer Social History Household Members: Family Housing: House Do you presently have visiting nurse or other home services: Yes (adalberto CRAWFORD) Alcohol intake: never Comment: bed alarm is not working. put chair alarm on her Patient Tobacco Use Status: Never used Tobacco e-Cigarette/Vaping Use: Never Used Second Hand Smoke Exposure: No Advance Directives Date on File: 06/16/22 service: No Current occupational status: retired Cognitive needs: No Hearing needs: No Vision needs: No Review of Systems Const All systems reviewed & are unremarkable except as noted in HPI and below Physical Exam Vital Signs: BMI result Body Mass Index 14.0 Extrem Other: Left knee normal to inspection. No effusion no open wounds or abrasions. She has full extension of the knee and can perform 80 degrees of flexion. No tenderness over the medial and lateral proximal tibia. Calf supple nontender neurovascularly intact. Right ankle is normal to inspection. She does have diffuse swelling over the medial and lateral malleolus with mild tenderness. No ligamentous laxity. Neurovascularly intact. Results Reviewed Results Reviewed: X-rays of the left knee obtained in the office today show a lateral tibial plateau fracture without depression or displacement. Xrays were obtained in the office today and personally reviewed by me of the right knee obtained in the office today are negative for any acute or chronic abnormalities. Assessment & Plan Assessment & Plan (1) Tibial plateau fracture, left: Code(s): S82.142A - Displaced bicondylar fracture of left tibia, initial encounter for closed fracture Category: Medical Plan For the left knee she can increase activities as tolerated continue weight- bearing as tolerated. For the right ankle she was fit for a boot today in the office were weightbear as tolerated. As her symptoms improve she can discontinue the boot and follow up as needed. Orders: Orders XR knee RT 2V 08/30/24 M25.569 - Pain in unspecified knee XR ankle RT min 3V 08/30/24 M25.571 - Pain in right ankle and joints of right foot XR knee LT 2V 08/30/24 M25.562 - Pain in left knee Referrals [facility] Referral S82.142A - Displaced bicondylar fracture of left tibia, initial encounter for closed fracture Coding Level of Care Code Est Pt Level 3 (01308) Complex EM visit Add On G2211 Diagnoses Tibial plateau fracture, left S82.142A
[2024-08-30 14:29] VITALS: BMI 14.0
== END 2024-08-30 14:51 | disposition home or self-care (01) ==
LOC: HO.HOS 14:06
PROVIDERS: PCP Nurse Practitioner Family; Visit Provider Physician Assistant
DX: S82.142A Displaced bicondylar fracture of left tibia, initial encounter for closed fracture (principal)
CPT/HCPCS: 99213; G2211

== ENCOUNTER 2024-08-30 14:12 | Outpatient (REF) | payer MEDICARE, SELFPAY ==
--- NOTE | ~2024-08-30 | XR_ITS ---
EXAMINATION: XR KNEE, RIGHT CLINICAL INFORMATION: M25.569 - Pain in unspecified knee COMPARISON: None available. TECHNIQUE: Two views of the right knee. FINDINGS: Generalized decreased mineralization. No acute cortical disruption or malalignment. Mild joint space narrowing the medial compartment. Cachectic/volume loss of the muscular and soft tissues. Vascular calcifications. XR/XR knee RT 2V IMPRESSION: No acute fracture or dislocation. Atherosclerosis disease, peripheral. Concerning for a no mobile extremity/paralysis. Electronically signed by: Kobi Lorenzana MD 08/30/2024 02:36 PM EDT
--- NOTE | ~2024-08-30 | XR_ITS ---
EXAMINATION: XR ANKLE, RIGHT CLINICAL INFORMATION: M25.571 - Pain in right ankle and joints of right foot COMPARISON: None available. TECHNIQUE: AP, lateral, and mortise views of the right ankle. FINDINGS: There is mild diffuse osteopenia. No acute fracture, dislocation, or suspicious bone lesion. There is a well-corticated osseous density subjacent to the lateral malleolus, likely sequela of old trauma. The mortise is intact. The talar dome is normal. The subtalar joints and calcaneus appear normal. There is mild circumferential soft tissue swelling. There is a probable small ankle joint effusion seen on the lateral projection. XR/XR ankle RT min 3V IMPRESSION: 1. No acute fracture or dislocation. Mortise is intact and talar dome is normal. 2. Circumferential soft tissue swelling. Probable ankle joint effusion. Electronically signed by: Rashi Saldivar MD 08/30/2024 03:28 PM EDT
--- NOTE | ~2024-08-30 | XR_ITS ---
EXAMINATION: XR KNEE, LEFT CLINICAL INFORMATION: M25.562 - Pain in left knee COMPARISON: 07/10/24. TECHNIQUE: Two views of the left knee. FINDINGS: There is mild diffuse osteopenia. Redemonstration of nondisplaced tibial plateau fracture involving the lateral tibial spine and medial tibial articular surface. The fracture line is indistinct and sclerotic indicating healing. No new fracture or dislocation. Minimal tricompartmental joint space narrowing present. No significant joint effusion. Normal soft tissues. XR/XR knee LT 2V IMPRESSION: Healing fracture of the medial tibial plateau. Fracture lines are now very indistinct and sclerotic. Stable anatomical alignment. Electronically signed by: Rashi Saldivar MD 08/30/2024 03:34 PM EDT
== END 2024-08-30 14:13 | disposition home or self-care (01) ==
LOC: HO.HOSX 14:12
PROVIDERS: Visit Provider Physician Assistant
DX: M25.561 Pain in right knee (principal); M25.562 Pain in left knee; M25.571 Pain in right ankle and joints of right foot; S82.142A Displaced bicondylar fracture of left tibia, initial encounter for closed fracture
CPT/HCPCS: 73560; 73610; 99212

== ENCOUNTER → 2024-08-30 14:15 | Outpatient (BNV) | payer MEDICARE, SELFPAY | PROVIDERS: Visit Provider Radiology Diagnostic Radiology | DX: M25.561 Pain in right knee (principal); S82.142D Displaced bicondylar fracture of left tibia, subsequent encounter for closed fracture with routine healing; M25.571 Pain in right ankle and joints of right foot | CPT/HCPCS: 73560; 73610 ==

== ENCOUNTER 2024-12-04 13:15 | Outpatient (AMB) | payer MEDICARE, SELFPAY ==
[2024-12-04 13:26] VITALS: BP 134/78; PULSE 81; O2SAT 84; BMI 14.1
--- NOTE | 2024-12-04 13:26 | A.OFFVIS_ITS ---
Vital Signs 3 12/04/24 13:26 Height 5 ft 3 in Weight 79 lb 9.39 oz BMI 14.1 BP 134/78 Blood Pressure Location Rt brachial Position Sitting Pulse 81 Pulse Source Pulse Oximeter Pulse Oximetry (%) 84 L Oxygen Delivery Method Room Air Intake Visit Reasons: T2DM Intake Note: Patient presents today for a follow-up on Type 2 Diabetes Mellitus: Last Diabetic eye exam was on: DUE Last Podiatry exam was on: Patient does not see a Protection Mgr Most recent HbA1c: Patient declined Random Glucose: Patient declined Allergies sulfa Allergy (Unknown, Verified 08/30/24 14:29) diarrhea midazolam (From Versed) Adverse Reaction (Severe, Verified 08/30/24 14:29) bradycardia HPI Comments Details: 78-year-old female presents today for diabetic follow up Medical history: Emphysema, SVT, osteopenia, hip fracture Refused poc A1C today, 08/21/24 8.0% from 8.3% 05/22/24 from 10.2 01/2024 Current prescribed medications: Insulin 8units daily~11 am, not taking lispro. Prescribed acarbose at dinner, she did not pickling solution maker CGM reviewed-0% lows. 97% use, GMI 7.0%, TGT 69%, high 24%, VH5%. Keeps juice beside the bed. She reports tends to run low 3-8am -70s She usually is taking a snack at around 4pm-coffee and fiber one and then dinner 6-8pm. Before bed she eats a small snack-pancake, waffle or low sugar ice cream. Weight stable at 79 pounds ROS CONSTITUTIONAL: Denies weight loss, fever and chills. HEENT: Denies changes in vision and hearing. RESPIRATORY: Denies SOB and cough. CV: Denies palpitations and CP GI: Denies abdominal pain, nausea, vomiting and diarrhea. : Denies dysuria and urinary frequency. MSK: Denies new myalgia and joint pain. SKIN: Denies rash and pruritus. NEUROLOGICAL: Denies headache PSYCHIATRIC: Denies recent changes in mood. PHYSICAL EXAM: GENERAL: Alert and oriented x 3. NAD EYES: EOMI. Anicteric. HENT: Moist mucous membranes. No scleral icterus. No cervical lymphadenopathy. LUNGS: Clear to auscultation bilaterally. CARDIOVASCULAR: Regular rate and rhythm. No murmur. No JVD. ABDOMEN: Soft, non-tender +bs EXTREMITIES: No edema. Non-tender. SKIN: No rashes or lesions. Warm. NEUROLOGIC: No focal neurological deficits. CN II-XII grossly intact PSYCHIATRIC: Cooperative. Appropriate mood and affect [facility] Medical History Abdominal wall bulge Closed intertrochanteric fracture of left hip Chronic hypotension Closed hip fracture Hypotension Hypotension Tachycardia Diabetes Sepsis Pneumonia Acute sinusitis Hypoxemia Pulmonary emphysema Pneumothorax Diabetes mellitus with microalbuminuria, without long-term current use of insulin Vaccination refused by patient Underweight Intermittent palpitations Diabetes mellitus with hyperglycemia, without long-term current use of insulin Hx of fracture of wrist H/O fracture of wrist Surgical History H/O wrist surgery History of femoral hernia repair Family History Father Diabetes mellitus Mother Essential hypertension Sister Breast cancer Social History Household Members: Family Housing: House Do you presently have visiting nurse or other home services: Yes (adalberto CRAWFORD) Alcohol intake: never Comment: bed alarm is not working. put chair alarm on her Patient Tobacco Use Status: Never used Tobacco e-Cigarette/Vaping Use: Never Used Second Hand Smoke Exposure: No Advance Directives Date on File: 06/16/22 service: No Current occupational status: retired Cognitive needs: No Hearing needs: No Vision needs: No Physical Exam Vital Signs: Last Vital Signs Pulse 81 12/04/24 13:26 BP 134/78 12/04/24 13:26 BMI result Body Mass Index 14.1 Assessment & Plan Assessment & Plan (1) Uncontrolled type 2 diabetes mellitus with hyperglycemia: Code(s): E11.65 - Type 2 diabetes mellitus with hyperglycemia Category: Medical Plan Diabetes with improving glycemic control Continue current insulin dose CGM data reviewed. Due for A1C though she said she did this recently at [facility] for her pcp She is considering acarbose at dinner. Orders: Orders 2 Hemoglobin A1c Today E11.65 - Type 2 diabetes mellitus with hyperglycemia, Z79.4 - [facility] (current) use of insulin Comprehensive Met. Panel Today E11.65 - Type 2 diabetes mellitus with hyperglycemia, Z79.4 - intermediate accountant (current) use of insulin Lipid Panel Today E11.65 - Type 2 diabetes mellitus with hyperglycemia, Z79.4 - [facility] (current) use of insulin Medications: Refilled 2 acarbose at dinner 25 mg PO DAILY 90 tabs 3RF Coding Level of Care Code Est Pt Level 4 (18713) Complex EM visit Add On G2211 Diagnoses Uncontrolled type 2 diabetes mellitus with hyperglycemia E11.65
--- OUTSIDE RECORDS SUMMARY | 2024-12-04 13:52 | XMS_ITS | Encounter Summary ---
Author Organization [facility] Address [address] [place] [address] Care Team Providers Care Die Tripper Name Role Phone Dmitry Jason MD Primary Care Provider [phone] Encounter Details Date Type Department Care Team (Late st Contact Info) Description 07/02/2024 Lab Requisition [facility] - Main Lab [address] [place] [address] Viola Tubbs MD [address] [place] [id number] Encounter for other general examination Social History [...] LAB CHEMISTRY METHOD 07/02/2024 12:14 PM EST [facility] Potassium 4.9 3.5 - 5.5 mmol/L LAB CHEMISTRY METHOD 07/02/2024 12:14 PM EST [facility] Chloride 97 96 - 110 mmol/L LAB CHEMISTRY METHOD 07/02/2024 12:14 PM EST [facility] CO2 45(HH) 21 - 32 mmol/L LAB CHEMISTRY METHOD 07/02/2024 12:14 PM [facility] Anion Gap -2(L) 3 - 11 LAB CHEMISTRY METHOD 07/02/2024 12:14 PM [facility] Glucose 146(H) 70 - 100 mg/dL LAB CHEMISTRY METHOD 07/02/2024 12:14 PM [facility] BUN 31(H) 5 - 25 mg/dL LAB CHEMISTRY METHOD 07/02/2024 12:14 PM [facility] Creatinine 0.63 0.50 - 1.10 mg/dL LAB CHEMISTRY METHOD 07/02/2024 12:14 PM [facility] eGFR 92 >=60 mL/min/1. 73m2 LAB CHEMISTRY METHOD 07/02/2024 12:14 PM [facility] Comment:Calculation based on the Chronic Kidney Disease Epidemiology Collaboration (CKD-EPI) equation refit without adjustment for race. BUN/Creatinine Ratio 49.2 LAB CHEMISTRY METHOD 07/02/2024 12:14 PM [facility] Calcium 9.2 8.5 - 10.5 mg/dL LAB CHEMISTRY METHOD 07/02/2024 12:14 PM [facility] Blood Venous blood specimen / Unknown Venipuncture / Unknown 07/02/2024 6:07 AM EST 07/02/2024 9:39 AM EST us Viola Tubbs MD LAB BLOOD ORDERABLES Final Resu lt [facility] [address] [place] [address], [place] [phone] documented in this encounter Visit Diagnoses Diagnosis Encounter for other general examination documented in this encounter Care Teams Die Tripper Relationship Specialty Start Date End Date Dmitry Jason MD [address] [place] [id number] PCP - General Internal Medicine 07/02/24 documented as of this encounter
== END 2024-12-04 15:57 | disposition home or self-care (01) ==
LOC: HO.ENCR 13:16
PROVIDERS: PCP Internal Medicine; Visit Provider Internal Medicine
DX: E11.65 Type 2 diabetes mellitus with hyperglycemia (principal)

== ENCOUNTER → 2024-12-04 13:15 | Outpatient (BNVA) | payer MEDICARE, SELFPAY | PROVIDERS: PCP Internal Medicine; Visit Provider Internal Medicine | DX: E11.65 Type 2 diabetes mellitus with hyperglycemia (principal); Z79.4 Long term (current) use of insulin | CPT/HCPCS: 99212 ==

== ENCOUNTER 2025-01-22 13:23 | Outpatient (AMB) | payer MEDICARE, SELFPAY ==
[2025-01-22 13:32] VITALS: BP 118/72; PULSE 68; O2SAT 92; BMI 13.5
--- NOTE | 2025-01-22 13:32 | A.OFFVIS_ITS ---
Vital Signs 01/22/25 13:32 Height 5 ft 3 in Weight 76 lb 0.952 oz BMI 13.5 BP 118/72 Blood Pressure Location Lt brachial Position Sitting Pulse 68 Pulse Source Pulse Oximeter Pulse Oximetry (%) 92 Oxygen Delivery Method Nasal Cannula Oxygen Flow Rate 2 Intake Visit Reasons: COPD Intake Note: pt is here for follow up and states she has a little wheeze, short of breath, come coughing Molding Line Operator Required: No Allergies sulfa Allergy (Unknown, Verified 01/22/25 16:23) diarrhea midazolam (From Versed) Adverse Reaction (Severe, Verified 01/22/25 16:23) bradycardia Medication List - Last Reconciled 01/22/25 by May Garcia MD acarbose 25 mg PO DAILY acetaminophen 650 mg PO Q6H PRN ascorbic acid (vitamin C) 500 mg PO DAILY aspirin 81 mg PO BID biotin 1,000 mcg PO DAILY blood sugar diagnostic Check fasting blood sugar four times daily cholecalciferol (vitamin D3) (Vitamin D3) 25 mcg PO DAILY dextromethorphan-guaifenesin 10-100 mg/5 mL 10 mL PO Q4H PRN FreeStyle Lancets (lancets) three times daily NS FreeStyle Silvina 3 [place] (blood-glucose,concrete block layer,cont) As directed NS FreeStyle Silvina 3 Sensor (blood-glucose sensor) every 14 days NS FreeStyle Lite Meter (blood-glucose meter) to check blood glucose 3x daily NS FreeStyle Lite Strips (blood sugar diagnostic) test 3 times daily NS FreeStyle Test (blood sugar diagnostic) four times daily NS insulin glargine (Lantus Solostar U-100 Insulin) 8 units subcut DAILY lancets Check blood sugar four times daily loperamide 2 mg PO Q6H PRN lutein 20 mg PO DAILY magnesium oxide 400 mg PO BID metoprolol tartrate 25 mg PO BID 30 days ni-ubi-gauoq-calcium carb-K1 400 mcg-500 mg calcium-20 mcg (Women's 50 Plus Multivitamin) 1 tab PO DAILY pen needle, diabetic (Comfort EZ Pen [place]) once daily pen needle, diabetic once daily Do you need a note to return to daycare/school/sports/work: No HPI HPI COPD: Details: THIS 79 YEARS OLD FEMALE COMES TO SEE ME ONCE A YEAR. SHE HAS EVIDENCE OF PULMONARY EMPHYSEMA PER HER PREVIOUS CHEST X-RAYS. SHE HAS HYPOXEMIA , AND CONTINUES TO USE O2 USUALLY 1 L/MINUTE , THE CURRENT INOGEN UNIT THAT SHE HAS IS A 6 LB UNIT. TODAY SHE IS RAISING THE CONCERN THAT IT IS TOO HEAVY SHE WANTS A US ADMINISTRATIVE LAW JUDGE UNIT. AT THE SAME TIME WHEN SHE CAME IN, HER O2 SAT WAS IN MID 80S AND WE HAD TO INCREASE THE O2. FLOW TO 2-3 L/MINUTE IN SPITE OF THAT HER O2 SAT REMAINED BELOW 90%. AND THIS WAS PARTLY DUE TO VERY COLD FINGERS ( VASOMOTOR DISORDER ) SHE IS INTERESTED IN STRENGTHENING HER LUNGS, AND WANTS TO JOIN PULMONARY REHAB PROGRAM. SHE DOES NOT USE ANY INHALERS. HER ORAL INTAKE REMAINS SUBOPTIMAL, AND SHE HAS LOST A FEW MORE LB OF WEIGHT. SHE DOES COMPLAIN OF GETTING SHORT OF BREATH ON MINIMAL WALKING. DENIES ANY BOUTS OF COUGH OR WHEEZING. [facility] Medical History Abdominal wall bulge Closed intertrochanteric fracture of left hip Chronic hypotension Closed hip fracture Hypotension Hypotension Tachycardia Diabetes Sepsis Pneumonia Acute sinusitis Hypoxemia Pulmonary emphysema Pneumothorax Diabetes mellitus with microalbuminuria, without long-term current use of insulin Vaccination refused by patient Underweight Intermittent palpitations Diabetes mellitus with hyperglycemia, without long-term current use of insulin Hx of fracture of wrist H/O fracture of wrist Surgical History H/O wrist surgery History of femoral hernia repair Family History Father Diabetes mellitus Mother Essential hypertension Sister Breast cancer Social History Household Members: Family Housing: House Do you presently have visiting nurse or other home services: Yes (adalberto CRAWFORD) Alcohol intake: never Comment: bed alarm is not working. put chair alarm on her Patient Tobacco Use Status: Never used Tobacco e-Cigarette/Vaping Use: Never Used Second Hand Smoke Exposure: No Advance Directives Date on File: 06/16/22 service: No Current occupational status: retired Cognitive needs: No Hearing needs: No Vision needs: No Review of Systems Const All systems reviewed & are unremarkable except as noted in HPI and below Eyes Reports no additional complaints ENT Reports no additional complaints Card Denies chest pain, Denies irregular heart rhythm, Denies leg edema and Reports dyspnea on exertion Resp Reports as per HPI and Reports dyspnea on exertion GI Reports no additional complaints Reports no additional complaints Musc Reports muscle weakness (Part of general weakness) Skin/Breast Reports system reviewed and no additional complaints, except as documented Neuro Reports no additional complaints Psych Reports no additional complaints Endo Reports no additional complaints Aller/Immun Reports no additional complaints Physical Exam Vital Signs: Last Vital Signs Pulse 68 01/22/25 13:32 BP 118/72 01/22/25 13:32 Pulse Ox 92 01/22/25 13:32 Oxygen Delivery Method Nasal Cannula 01/22/25 13:32 Oxygen Flow Rate 2 01/22/25 13:32 BMI result Body Mass Index 13.5 Last Vital Signs Const Other: She is of a thin build, somewhat emaciated . General: comfortable, no acute distress, alert and awake Orientation/consciousness: patient oriented x3 HEENT Head: Yes normal to inspection General nose exam: No nasal polyps present and No nasal discharge present Face and sinus: Yes sinuses nontender Mouth: oropharynx normal Throat: Yes posterior oropharynx normal Eyes General: appearance normal, both eyes and all related structures Neck Neck: Yes normal visual inspection, Yes no lymphadenopathy, Yes trachea midline and Yes no JVD Thyroid: Thyroid normal Chest Chest palpation & inspection: normal inspection of the chest, normal palpation of entire chest wall and no tenderness Resp Other: Chest wall is very thin. Percussion note hyper-resonant. Breath sounds are slightly distant, there are no crepitations or wheezes. Cardio Palpation: normal PMI Rate: regular rate Rhythm: regular rhythm Heart sounds: no gallops and no murmurs GI Palpation (GI): Soft to palpation, nontender, No hepatosplenomegaly present and no masses Auscultation: normal bowel sounds Back/Spine/Pelvis Thoracic/Lumbar Spine: thoracic and lumbar spine normal to inspection Skin General skin exam: no rashes or lesions noted Neuro General: patient oriented x3 and no focal motor deficits Cranial nerves: Yes CN's II-XII intact bilaterally Extrem General: Yes normal to inspection, Yes no clubbing, cyanosis or edema and Yes no calf tenderness Psych Speech and movement: Normal speech and movement present Assessment & Plan Assessment & Plan (1) Pulmonary emphysema: Comment: Physical examination and the chest x-ray ,c/w Pulmonary Emphysema. Lungs clear . Code(s): J43.9 - Emphysema, unspecified Category: Medical Plan: PATIENT DOES NOT USE ANY BRONCHODILATOR INHALERS. TODAY SHE IS COMPLAINING OF INTERMITTENT WHEEZING. AND SHORTNESS OF BREATH ON EXERTION , EVEN WHEN USING THE OXYGEN. PATIENT IS SCHEDULED TO HAVE A COMPLETE PULMONARY FUNCTION TEST. AFTER THAT WE WILL DECIDE IF SHE SHOULD BE STARTED ON SOME BRONCHODILATOR INHALER OR NOT ALSO AFTER THE PULMONARY FUNCTION TEST WILL DECIDE IF SHE SHOULD GO TO PULMONARY REHAB PROGRAM. (2) Hypoxemia: Comment: Patient has chronic respiratory failure, with hypoxemia and mild hypercapnia. She is on oxygen at home 2 L/minute with the oxygen concentrator. Code(s): R09.02 - Hypoxemia Category: Medical Plan: USE O2 2 L/MINUTE WITH THE PORTABLE UNIT WHEN GOING OUTDOORS. WE HAVE CALLED THE [employer] TO SEE IF THEY CAN PROVIDE HER A US ADMINISTRATIVE LAW JUDGE POC. Orders: Orders PFT pulmonary function test Today J43.9 - Emphysema, unspecified, R09.02 - Hypoxemia Coding Level of Care Code Est Pt Level 3 (85948) Diagnoses Pulmonary emphysema J43.9 Hypoxemia R09.02
--- OUTSIDE RECORDS SUMMARY | 2025-01-22 14:17 | XMS_ITS | Encounter Summary ---
Author Organization [facility] Address [address] [place] [address] Care Team Providers Care Supervisor Pairing And Inspecting Name Role Phone Dmitry Jason MD Primary Care Provider [phone] Encounter Details Date Type Department Care Team (Late st Contact Info) Description 07/02/2024 Lab Requisition [facility] - Main Lab [address] [place] [address] Viola Tubbs MD [address] [place] [id number] Encounter for other general examination Social History [...] LAB CHEMISTRY METHOD 07/02/2024 12:14 PM EST [facility] Potassium 4.9 3.5 - 5.5 mmol/L LAB CHEMISTRY METHOD 07/02/2024 12:14 PM EST [facility] Chloride 97 96 - 110 mmol/L LAB CHEMISTRY METHOD 07/02/2024 12:14 PM EST [facility] CO2 45(HH) 21 - 32 mmol/L LAB CHEMISTRY METHOD 07/02/2024 12:14 PM [facility] Anion Gap -2(L) 3 - 11 LAB CHEMISTRY METHOD 07/02/2024 12:14 PM [facility] Glucose 146(H) 70 - 100 mg/dL LAB CHEMISTRY METHOD 07/02/2024 12:14 PM [facility] BUN 31(H) 5 - 25 mg/dL LAB CHEMISTRY METHOD 07/02/2024 12:14 PM [facility] Creatinine 0.63 0.50 - 1.10 mg/dL LAB CHEMISTRY METHOD 07/02/2024 12:14 PM [facility] eGFR 92 >=60 mL/min/1. 73m2 LAB CHEMISTRY METHOD 07/02/2024 12:14 PM [facility] Comment:Calculation based on the Chronic Kidney Disease Epidemiology Collaboration (CKD-EPI) equation refit without adjustment for race. BUN/Creatinine Ratio 49.2 LAB CHEMISTRY METHOD 07/02/2024 12:14 PM [facility] Calcium 9.2 8.5 - 10.5 mg/dL LAB CHEMISTRY METHOD 07/02/2024 12:14 PM [facility] Blood Venous blood specimen / Unknown Venipuncture / Unknown 07/02/2024 6:07 AM EST 07/02/2024 9:39 AM EST us Viola Tubbs MD LAB BLOOD ORDERABLES Final Resu lt [facility] [address] [place] [address], [place] [phone] documented in this encounter Visit Diagnoses Diagnosis Encounter for other general examination documented in this encounter Care Teams Supervisor Pairing And Inspecting Relationship Specialty Start Date End Date Dmitry Jason MD [address] [place] [address] PCP - General Internal Medicine 07/02/24 documented as of this encounter
== END 2025-01-22 14:26 | disposition home or self-care (01) ==
LOC: HO.HPS 13:23
PROVIDERS: PCP Internal Medicine; Visit Provider Internal Medicine
DX: J43.9 Emphysema, unspecified (principal); R09.02 Hypoxemia
CPT/HCPCS: 99213

== ENCOUNTER → 2025-01-22 13:23 | Outpatient (BNVA) | payer MEDICARE, SELFPAY | PROVIDERS: PCP Internal Medicine; Visit Provider Internal Medicine | DX: J43.9 Emphysema, unspecified (principal); R09.02 Hypoxemia | CPT/HCPCS: 99212 ==

== ENCOUNTER 2025-02-26 13:45 | Outpatient (RCR) | payer MEDICARE, SELFPAY | END 2025-02-26 16:55 | disposition home or self-care (01) | LOC: HO.WCC 13:45 | PROVIDERS: PCP Internal Medicine; Visit Provider Surgery Surgical Oncology | DX: J96.11 Chronic respiratory failure with hypoxia (principal); J44.9 Chronic obstructive pulmonary disease, unspecified; Z99.81 Dependence on supplemental oxygen; Z09 Encounter for follow-up examination after completed treatment for conditions other than malignant neoplasm | CPT/HCPCS: 99214 ==

== ENCOUNTER 2025-02-26 14:37 | Emergency (ER) | payer MEDICARE, SELFPAY ==
--- NOTE | ~2025-02-26 | XR_ITS ---
EXAMINATION: XR CHEST CLINICAL INFORMATION: SOB COMPARISON: 07/12/24. TECHNIQUE: 2 views of the chest were obtained. FINDINGS: The cardiac, hilar, and mediastinal contours are normal. Lungs demonstrate hyperaeration. There is diffuse prominence of the bronchovascular interstitium, in keeping with small airway inflammation. Subtle Maria Esther B lines in the lung bases could potentially indicate a small amount of interstitial pulmonary edema. There is a tiny left pleural effusion. There is no pneumothorax or right pleural effusion. There is biapical pleural parenchymal scarring. There is no focal osseous or soft tissue abnormality. Old fracture deformity right proximal humerus. Degenerative changes of the spine with 2 lower thoracic compression deformities. XR/XR chest 2V IMPRESSION: 1. Hyperaerated lung parenchyma is consistent with COPD. 2. Prominence of the background bronchovascular interstitium, likely reflecting inflammatory airways disease. A small amount of superimposed interstitial edema is also likely present. There is a tiny left effusion. Electronically signed by: Rashi Saldivar MD 02/26/2025 04:39 PM EDT
[2025-02-26] MEDS: Albuterol Sulfate 5 MG, Albuterol/Iprat 2.5/0.5MG 3 ML 3 ML INHALE (14:50)
[2025-02-26 14:51] VITALS: PULSE 71; RESP 22; O2SAT 95
[2025-02-26 14:57] VITALS: BP 141/77; BP 144/93; PULSE 70; PULSE 80; RESP 16; TEMP 36.7; O2SAT 94; O2SAT 99; BMI 15.4
[2025-02-26 15:00] VITALS: BP 141/77; PULSE 70; RESP 16; TEMP 36.7; O2SAT 94
[2025-02-26 15:45] VITALS: O2SAT 94
--- NOTE | 2025-02-26 15:45 | ECG_ITS ---
Test Reason : SOB Blood Pressure : */* mmHG Vent. Rate : 92 BPM Atrial Rate : 92 BPM P-R Int : 134 ms QRS Dur : 74 ms QT Int : 346 ms P-R-T Axes : 68 54 86 degrees QTcB Int : 427 ms Normal sinus rhythm Possible Left atrial enlargement Nonspecific T wave abnormality Abnormal ECG When compared with ECG of 12-Jul-2024 12:31, QT has lengthened Referred By: Danyell Helms Electronically Signed By: Deon Laura
[2025-02-26 15:59] LABS: Hematocrit 35.8 % (37.0-47.0); Hemoglobin 11.4 g/dl (12.0-16.0); Imm Gran Abs Auto 0.03 X10*3/uL (0.00-0.03); Imm Gran Pct Auto 0.4 % (0.0-0.4); Lymphocytes Absolute Auto 1.4 X10*3/uL (1.2-4.9); MANUAL DIFF FLAG NO; Mean Corpuscular HGB Conc 31.8 g/dl (31.0-35.0); Mean Corpuscular Hemoglobin 29.7 pg (27.0-33.0); Mean Corpuscular Volume 93.2 fL (80.0-98.0); NRBC Abs Auto 0.000 X10*3/uL (0.0-0.012); NRBC Pct Auto 0.0 /100WBC (0.0-0.2); Platelet Count 127 X10*3/uL (160-400); Red Blood Count 3.84 X10*6/uL (4.20-5.50); White Blood Count 7.3 X10*3/uL (4.8-10.8)
[2025-02-26 16:05] LABS: INTERNATIONAL NORM RATIO 1.1 (0.9-1.1); Prothrombin Time 12.2 SEC (10.9-12.4)
[2025-02-26 16:18] LABS: Alanine Aminotransferase 28 U/L (0-31); Albumin Level 3.6 g/dL (3.5-5.0); Alkaline Phosphatase 89 U/L (39-117); Anion Gap 10 (12-20); Aspartate Amino Transferase 30 U/L (5-31); Blood Urea Nitrogen 25 mg/dL (9-16); Calcium 9.1 mg/dL (8.4-10.2); Carbon Dioxide 42 mmol/L (22-29); Chloride 97 mmol/L (96-108); Creatinine Clr Calc Pharmacy 36.2; Estimated Glomerular Filt Rate > 60; Potassium 3.6 mmol/L (3.3-5.1); Sodium 145 mmol/L (135-145); Total Protein 7.3 g/dL (6.5-8.0)
[2025-02-26 16:21] LABS: Troponin-I High Sensitivity 13.1 ng/L (<3.5-17.0)
--- NOTE | 2025-02-26 16:39 | ED.GENADULT ---
HPI - General Adult General Chief complaint: Dyspnea Stated complaint: shortness of breath Time Seen by Provider: 02/26/25 16:37 Source: patient Mode of arrival: ambulatory Limitations: no limitations History of Present Illness ED Provider: Dr. Hernandez HPI narrative: This is a 79-year-old female history area of chronic respiratory failure on 2 L nasal cannula for COPD, diabetes, chronic sacral wound presented hospital today for evaluation of hypoxia. Patient was sent in from wound clinic because her O2 saturation dropped to 88%. On reassessment patient states she is not short of breath she is not coughing he does not have any fever. Patient feels that she is at her regular baseline health state. Related Data Home Medications ?Medication ?Instructions ?Recorded ?Confirmed ascorbic acid (vitamin C) 500 mg 500 mg PO DAILY 05/26/20 01/22/25 capsule wnafspil-sdj-rizoc ac 400 1 tab PO DAILY 05/26/20 01/22/25 mcg-calcium carb 500 mg-vit K1 20 mcg tablet (Women's 50 Plus Multivitamin) cholecalciferol (vitamin D3) 10 25 mcg PO DAILY 07/11/22 01/22/25 mcg (400 unit) tablet (Vitamin D3) biotin 2,500 mcg chewable tablet 1,000 mcg PO DAILY 01/14/24 01/22/25 acetaminophen 325 mg capsule 650 mg PO Q6H PRN Pain/Fever 07/10/24 01/22/25 loperamide 2 mg tablet 2 mg PO Q6H PRN Loose Stool 07/10/24 01/22/25 lutein 20 mg capsule 20 mg PO DAILY 07/10/24 01/22/25 aspirin 81 mg tablet,delayed 81 mg PO BID 07/12/24 01/22/25 release insulin glargine 100 unit/mL (3 8 unit subcut DAILY 07/12/24 01/22/25 mL) subcutaneous pen (Lantus Solostar U-100 Insulin) magnesium oxide 400 mg (241.3 mg 400 mg PO BID 07/12/24 01/22/25 magnesium) tablet Previous Rx's ?Medication ?Instructions ?Recorded lancets 33 gauge #200 ea 03/18/24 FreeStyle Test (blood sugar #200 ea 03/20/24 diagnostic) blood sugar diagnostic #200 ea 03/20/24 FreeStyle Lancets 28 gauge #100 ea 10/22/24 (lancets) FreeStyle Silvina 3 [place] #1 ea 03/26/24 (blood-glucose,cnc grinder,cont) FreeStyle Lite Meter #1 ea 03/26/24 (blood-glucose meter) FreeStyle Lite Strips (blood sugar #100 ea 03/26/24 diagnostic) pen needle, diabetic 33 gauge x #100 ea 05/22/24 (Comfort EZ Pen [place]) metoprolol tartrate 25 mg tablet 25 mg PO BID 30 days #60 tabs 07/10/24 dextromethorphan-guaifenesin 10 10 ml PO Q4H PRN Cough #237 mL 07/16/24 mg-100 mg/5 mL oral syrup FreeStyle Silvina 3 Sensor #6 ea 08/14/24 (blood-glucose sensor) pen needle, diabetic 31 gauge x #200 ea 09/30/2408/18 acarbose 25 mg tablet 25 mg PO DAILY #90 tabs 12/04/24 azithromycin 250 mg tablet See Rx Instructions PO .COMPLEX #6 02/26/25 tabs prednisone 20 mg tablet 40 mg (2 x 20 mg) PO DAILY 5 days 02/26/25 #10 tabs Allergies Allergy/AdvReac Type Severity Reaction Status Date / Time sulfa Allergy Unknown diarrhea Verified 02/26/25 15:00 midazolam (From Versed) AdvReac Severe bradycardia Verified 02/26/25 15:00 Review of Systems Review of Systems: Pertinent review of systems as mentioned in HPI. All other system otherwise negative. [facility] Past Medical History [facility] Narrative: Medical history as mentioned in HPI Medical History Abdominal wall bulge Closed intertrochanteric fracture of left hip Chronic hypotension Closed hip fracture Hypotension Hypotension Tachycardia Diabetes Sepsis Pneumonia Acute sinusitis Hypoxemia Pulmonary emphysema Pneumothorax Diabetes mellitus with microalbuminuria, without long-term current use of insulin Vaccination refused by patient Underweight Intermittent palpitations Diabetes mellitus with hyperglycemia, without long-term current use of insulin Hx of fracture of wrist H/O fracture of wrist Surgical History H/O wrist surgery History of femoral hernia repair Family History Family History Father Diabetes mellitus Mother Essential hypertension Sister Breast cancer Social History Social History Household Members: Family Housing: House Do you presently have visiting nurse or other home services: Yes (adalberto CRAWFORD) Alcohol intake: never Comment: bed alarm is not working. put chair alarm on her Patient Tobacco Use Status: Never used Tobacco Smoked in Last 30 Days: No e-Cigarette/Vaping Use: Never Used Second Hand Smoke Exposure: No Use of substances other than those prescribed or required for medical reasons: No Advance Directives: Yes Advance Directives on File: Yes Advance Directives Date on File: 06/16/22 Do you have a plan to hurt others: No Plan service: No Current occupational status: retired Cognitive needs: No Hearing needs: No Vision needs: No Physical Exam ED Exam Exam: General: Pleasant, no distress, interacting appropriately, appears to be cachectic chronically ill, pursed lip breathing consistent with COPD Head: Normacephalic, atraumatic ENT: oral mucosa moist, neck supple, no tracheal deviation Cardiovascular: regular rate, regular rhythm, no murmurs, rubbing, gallops Respiratory: Diminished lung sounds bilateral wheezing on exam : Stage I sacral ulcer appreciate on exam. No signs of obvious infection or drainage Extremities: No limb pain or swelling, no calf tenderness Neurological: Awake and alert, no facial droop noted Skin: Warm and dry Psychiatric: Appropriate mood and thoughts Vital Signs: Vital Signs - 24 hr 02/27/25 05:43 02/27/25 08:38 Temperature 97.4 F 97.4 F Pulse Rate 74 74 Respiratory Rate 15 15 Blood Pressure 148/84 H 148/84 H Pulse Oximetry 97 97 Oxygen Delivery Method Nasal Cannula Oxygen Flow Rate 2 BMI result Body Mass Index 15.4 Medications Administered Discontinued Medications Generic Name Dose Route Start Last Admin Trade Name Freq PRN Reason Stop Dose Admin Albuterol Sulfate 5 mg/ 0 mg 02/26/25 14:46 02/26/25 14:50 Albuterol/Ipratropium 3 ml INHALE 02/26/25 14:47 1 each ONCE ONE Administration Metoprolol Tartrate 25 mg 02/26/25 21:00 02/26/25 20:35 Metoprolol Tartrate 25 Mg Tablet PO 25 mg BID MARBELLA Administration Protocol Prednisone 50 mg 02/26/25 16:53 02/26/25 17:06 Prednisone 10 Mg Tablet PO 02/26/25 16:54 50 mg ONCE ONE Administration Medical Decision Making Medical Decision Making [facility] Narrative: 79-year-old female history of chronic respiratory failure COPD on 2 L nasal cannula presented hospital today for evaluation of hypoxia satting at 88% and Wound Clinic. On my assessment patient is satting at 92%. I think this is appropriate for her history of COPD. She is chronically on 2 L nasal cannula. I do not think patient is having acute COPD exacerbation at this time. Breathing treatment was given to the patient. A dose of prednisone will be given. Basic lab work were obtained for the patient. CBC is unremarkable no sign of leukocytosis slight anemia at 11.4, patient's chemistries prolonged at 42 likely secondary to her chronic CO2 retention from COPD. We will obtain a VBG. Does have elevated BUN to creatinine ratio. We will plan to feed the patient at this time. Glucose is stable at 242. Troponin is negative at 13. I review patient's EKG shows normal sinus rhythm. Patient does have signs of possible left atrial enlargement. No sign of STEMI. Chest x-ray did not show any signs of pneumonia. VBG did not show any signs of significant in respiratory acidosis. The patient stated that she is unable to go home at this time she is refusing ambulance transport due to financial issues. We do not have a safe discharge option for the patient tonight. We will plan to hold the patient here is a physical obs. Patient is full code. I patient will be held in the ER. Patient will be signed out to oncoming provider pending discharge in the morning. Differential Diagnosis Differential Diagnoses: The differential diagnosis associated with the presentation includes Cardiac arrhythmia, COPD exacerbation, pneumonia, Lab Data [facility] Lab Attestation statement: I reviewed the patient's lab results. 02/26/25 15:55 02/26/25 17:33 Labs: Lab Results 02/26/25 02/26/25 02/26/25 Range/Units 15:54 15:55 17:33 WBC 7.3 (4.8-10.8) X10*3/uL RBC 3.84 L (4.20-5.50) X10*6/uL Hgb 11.4 L D (12.0-16.0) g/dl Hct 35.8 L (37.0-47.0) % MCV 93.2 (80.0-98.0) fL MCH 29.7 (27.0-33.0) pg MCHC 31.8 (31.0-35.0) g/dl RDW 17.1 H (11.0-16.0) % Plt Count 127 L D (160-400) X10*3/uL MPV 9.4 (9.4-12.3) fL Immature Gran % (Auto) 0.4 (0.0-0.4) % Neut % (Auto) 72.8 (45-73) % Lymph % (Auto) 18.9 L (20-40) % Fountain % (Auto) 6.4 (2-11) % Eos % (Auto) 1.1 (0-4) % Baso % (Auto) 0.4 (0-2) % Lymph # (Auto) 1.4 (1.2-4.9) X10*3/uL Fountain # (Auto) 0.5 (0.1-1.2) X10*3/uL Eos # (Auto) 0.1 (0.0-0.4) X10*3/uL Baso # (Auto) 0.0 (0.0-0.2) X10*3/uL Abs Immat Gran (auto) 0.03 (0.00-0.03) X10*3/uL Absolute Neuts (auto) 5.3 (2.0-8.3) x10*3/uL Absolute Nucleated RBC 0.000 (0.0-0.012) X10*3/uL Nucleated RBC % (auto) 0.0 (0.0-0.2) /100WBC PT 12.2 (10.9-12.4) SEC INR 1.1 (0.9-1.1) VBG pH (7.32-7.43) VBG pCO2 mmHg VBG pO2 mmHg VBG HCO3 (22-26) mmol/L VBG O2 Saturation % VBG Base Excess mmol/L Sodium 145 144 (135-145) mmol/L Potassium 3.6 D 3.6 (3.3-5.1) mmol/L Chloride 97 96 (96-108) mmol/L Carbon Dioxide 42 H* 37 H (22-29) mmol/L Anion Gap 10 L 15 (12-20) BUN 25 H 25 H (9-16) mg/dL Creatinine 0.81 0.84 (0.5-1.4) mg/dL Estim Creat Clear Calc 36.2 34.9 Estimated GFR > 60 > 60 POC Glucose (60-115) mg/dL Random Glucose 242 H 329 H (60-115) mg/dL Calcium 9.1 D 8.9 (8.4-10.2) mg/dL Total Bilirubin 0.4 (0.0-1.0) mg/dL AST 30 (5-31) U/L ALT 28 (0-31) U/L Alkaline Phosphatase 89 (39-117) U/L Troponin I High Sens 13.1 D (<3.5-17.0) ng/L Total Protein 7.3 (6.5-8.0) g/dL Albumin 3.6 (3.5-5.0) g/dL 02/26/25 02/27/25 Range/Units 17:40 05:39 WBC (4.8-10.8) X10*3/uL RBC (4.20-5.50) X10*6/uL Hgb (12.0-16.0) g/dl Hct (37.0-47.0) % MCV (80.0-98.0) fL MCH (27.0-33.0) pg MCHC (31.0-35.0) g/dl RDW (11.0-16.0) % Plt Count (160-400) X10*3/uL MPV (9.4-12.3) fL Immature Gran % (Auto) (0.0-0.4) % Neut % (Auto) (45-73) % Lymph % (Auto) (20-40) % Fountain % (Auto) (2-11) % Eos % (Auto) (0-4) % Baso % (Auto) (0-2) % Lymph # (Auto) (1.2-4.9) X10*3/uL Fountain # (Auto) (0.1-1.2) X10*3/uL Eos # (Auto) (0.0-0.4) X10*3/uL Baso # (Auto) (0.0-0.2) X10*3/uL Abs Immat Gran (auto) (0.00-0.03) X10*3/uL Absolute Neuts (auto) (2.0-8.3) x10*3/uL Absolute Nucleated RBC (0.0-0.012) X10*3/uL Nucleated RBC % (auto) (0.0-0.2) /100WBC PT (10.9-12.4) SEC INR (0.9-1.1) VBG pH 7.41 (7.32-7.43) VBG pCO2 63 mmHg VBG pO2 47 mmHg VBG HCO3 40 H (22-26) mmol/L VBG O2 Saturation 70.0 % VBG Base Excess 13.2 mmol/L Sodium (135-145) mmol/L Potassium (3.3-5.1) mmol/L Chloride (96-108) mmol/L Carbon Dioxide (22-29) mmol/L Anion Gap (12-20) BUN (9-16) mg/dL Creatinine (0.5-1.4) mg/dL Estim Creat Clear Calc Estimated GFR POC Glucose 301 H (60-115) mg/dL Random Glucose (60-115) mg/dL Calcium (8.4-10.2) mg/dL Total Bilirubin (0.0-1.0) mg/dL AST (5-31) U/L ALT (0-31) U/L Alkaline Phosphatase (39-117) U/L Troponin I High Sens (<3.5-17.0) ng/L Total Protein (6.5-8.0) g/dL Albumin (3.5-5.0) g/dL Independent Interpretation I performed an independent interpretation of an: EKG and Plain X-Ray Radiology Impression Discussion of test interpretation with radiology: I have reviewed the radiologist's reading. Discharge Plan Discharge Clinical Impression: Chronic hypoxemic respiratory failure, COPD (chronic obstructive pulmonary disease) Patient Disposition: Home, Self-Care Instructions: Chronic Respiratory Failure (DC) Additional Instructions: Into discharge Prescriptions: New prednisone 20 mg tablet 40 mg PO DAILY 5 Days Qty: 10 0RF azithromycin 250 mg tablet See Rx Instructions .ROUTE .COMPLEX Qty: 6 0RF Rx Instructions: For 250 mg dose pack: take 500 mg today (day 1), then 250 mg for 4 days (days 2-5) No Action (DME) lancets 33 gauge misc See Rx Instructions .ROUTE .MEDSUPPLY Qty: 200 4RF Rx Instructions: Check blood sugar four times daily (DME) blood sugar diagnostic Strip See Rx Instructions .ROUTE .MEDSUPPLY Qty: 200 5RF Rx Instructions: Check fasting blood sugar four times daily (DME) FreeStyle Test Strip See Rx Instructions .Route Qty: 200 3RF Rx Instructions: four times daily (DME) FreeStyle Lite Strips Strip See Rx Instructions .Route Qty: 100 3RF Rx Instructions: test 3 times daily (DME) blood-glucose meter [FreeStyle Lite Meter] Kit See Rx Instructions .Route Qty: 1 0RF Rx Instructions: to check blood glucose 3x daily (DME) lancets [FreeStyle Lancets] 28 gauge misc See Rx Instructions .Route Qty: 100 3RF Rx Instructions: three times daily (DME) FreeStyle Silvina 3 [place] Misc See Rx Instructions .Route Qty: 1 0RF Rx Instructions: As directed metoprolol tartrate 25 mg tablet 25 mg PO BID 30 Days Qty: 60 5RF (DME) FreeStyle Silvina 3 Sensor Device See Rx Instructions .Route Qty: 6 3RF Rx Instructions: every 14 days (DME) pen needle, diabetic 31 gauge x 3/16 needle See Rx Instructions .ROUTE .COMPLEX Qty: 200 3RF Dose Instruction: USE DIRECTED Rx Instructions: once daily cholecalciferol (vitamin D3) [Vitamin D3] 10 mcg (400 unit) Tablet 25 mcg PO DAILY aspirin 81 mg tablet,delayed release (DR/EC) 81 mg PO BID magnesium oxide 400 mg (241.3 mg magnesium) tablet 400 mg PO BID insulin glargine [Lantus Solostar U-100 Insulin] 100 unit/mL (3 mL) insulin pen 8 unit subcut DAILY dextromethorphan-guaifenesin 10-100 mg/5 mL Syrup 10 ml PO Q4H PRN (Reason: Cough) Qty: 237 0RF biotin 2,500 mcg Tablet,Chewable 1,000 mcg PO DAILY Women's 50 Plus Multivitamin 400 mcg-500 mg calcium-20 mcg tablet 1 tab PO DAILY ascorbic acid (vitamin C) 500 mg capsule 500 mg PO DAILY (DME) pen needle, diabetic [Comfort EZ Pen [place]] 33 gauge x 5/32 needle See Rx Instructions .Route Qty: 100 3RF Rx Instructions: once daily acarbose 25 mg tablet 25 mg PO DAILY Qty: 90 3RF Rx Instructions: at dinner loperamide 2 mg tablet 2 mg PO Q6H PRN (Reason: Loose Stool) lutein 20 mg capsule 20 mg PO DAILY Rx Instructions: give with meal/snack acetaminophen 325 mg capsule 650 mg PO Q6H PRN (Reason: Pain/Fever) Interventions: ED Discharge Assessment Last Done: 02/27/25 08:38 Discharge Date/Time: 02/27/25 08:55 Print Language: Latvian
[2025-02-26 17:43] LABS: VBG HCO3 40 mmol/L (22-26); VBG O2 % Saturation 70.0 %
[2025-02-26 18:04] LABS: Anion Gap 15 (12-20); Blood Urea Nitrogen 25 mg/dL (9-16); Calcium 8.9 mg/dL (8.4-10.2); Carbon Dioxide 37 mmol/L (22-29); Chloride 96 mmol/L (96-108); Creatinine Clr Calc Pharmacy 34.9; Estimated Glomerular Filt Rate > 60; Potassium 3.6 mmol/L (3.3-5.1); Sodium 144 mmol/L (135-145)
[2025-02-26 18:06] LABS: Venous Blood Gas Refer to POC result
--- OUTSIDE RECORDS SUMMARY | 2025-02-26 18:06 | XMS_ITS | Encounter Summary ---
Author Organization [facility] Address [address] [place] [address] Care Team Providers Care Operations Developer Name Role Phone Dmitry Jason MD Primary Care Provider [phone] Encounter Details Date Type Department Care Team (Late st Contact Info) Description 07/08/2024 Lab Requisition [facility] - Main Lab [address] [place] [address] Viola Tubbs MD [address] [place] [phone] Encounter for other general examination Social History [...] AM EST) WBC 8.1 4.8 - 10.8 K/[facility] LAB HEMETOLOGY METHOD 07/08/2024 10:07 AM [facility] RBC 3.50(L) 3.80 - 4.80 M/mcL LAB HEMETOLOGY METHOD 07/08/2024 10:07 AM [facility] Hemoglobin 9.5(L) 11.5 - 16.0 g/dL LAB HEMETOLOGY METHOD 07/08/2024 10:07 AM [facility] Hematocrit 32.5(L) 35.0 - 47.0 % LAB HEMETOLOGY METHOD 07/08/2024 10:07 AM [facility] MCV 93.4 79.0 - 98.0 FL LAB HEMETOLOGY METHOD 07/08/2024 10:07 AM [facility] MCH 27.3 27.0 - 32.0 pcg LAB HEMETOLOGY METHOD 07/08/2024 10:07 AM [facility] MCHC 29.2(L) 32.0 - 37.0 g/dL LAB HEMETOLOGY METHOD 07/08/2024 10:07 AM [facility] RDW 18.5(H) 11.0 - 15.0 % LAB HEMETOLOGY METHOD 07/08/2024 10:07 AM [facility] Platelets 353 130 - 400 K/mcL LAB HEMETOLOGY METHOD 07/08/2024 10:07 AM [facility] MPV 9.9 7.0 - 11.0 FL LAB HEMETOLOGY METHOD 07/08/2024 10:07 AM [facility] NRBC 0.0 <1.0 % LAB HEMETOLOGY METHOD 07/08/2024 10:07 AM [facility] NRBC Absolute 0.00 <0.10 K/mcL LAB HEMETOLOGY METHOD 07/08/2024 10:07 AM [facility] Neutrophils Relative 77.8 % LAB HEMETOLOGY METHOD 07/08/2024 10:07 AM [facility] Lymphocytes Relative 8.4 % LAB HEMETOLOGY METHOD 07/08/2024 10:07 AM [facility] Monocytes Relative 11.5 % LAB HEMETOLOGY METHOD 07/08/2024 10:07 AM [facility] Eosinophils Relative 1.5 % LAB HEMETOLOGY METHOD 07/08/2024 10:07 AM [facility] Basophils Relative 0.4 % LAB HEMETOLOGY METHOD 07/08/2024 10:07 AM [facility] Immature Granulocytes Relative 0.4 % LAB HEMETOLOGY METHOD 07/08/2024 10:07 AM [facility] Neutrophils Absolute 6.29 1.50 - 7.00 K/mcL LAB HEMETOLOGY METHOD 07/08/2024 10:07 AM [facility] Lymphocytes Absolute 0.68(L) 1.00 - 5.00 K/mcL LAB HEMETOLOGY METHOD 07/08/2024 10:07 AM [facility] Monocytes Absolute 0.93 0.20 - 1.00 K/mcL LAB HEMETOLOGY METHOD 07/08/2024 10:07 AM [facility] Eosinophils Absolute 0.12 0.00 - 0.50 K/mcL LAB HEMETOLOGY METHOD 07/08/2024 10:07 AM [facility] Basophils Absolute 0.03 0.00 - 0.20 K/mcL LAB HEMETOLOGY METHOD 07/08/2024 10:07 AM [facility] Immature Granulocytes Absolute 0.03 0.00 - 0.03 K/mcL LAB HEMETOLOGY METHOD 07/08/2024 10:07 AM [facility] Blood Venous blood specimen / Unknown Venipuncture / Unknown 07/08/2024 6:27 AM EST 07/08/2024 9:00 AM EST us Viola Tubbs MD LAB BLOOD ORDERABLES Final Resu lt Performing Organization Address [facility]/ZIP Co de Phone Number [facility] [address] [place] [address], * Magnesium (07/08/2024 6:27 AM EST) Magnesium 2.1 1.9 - 2.6 mg/dL LAB CHEMISTRY METHOD 07/08/2024 11:01 AM [facility] Blood Venous blood specimen / Unknown Venipuncture / Unknown 07/08/2024 6:27 AM EST 07/08/2024 9:00 AM EST us Viola Tubbs MD LAB BLOOD ORDERABLES Final Resu lt Performing Organization Address [facility]/ZIP Co de Phone Number [facility] [address] [place] [address], * (ABNORMAL) Basic metabolic panel (07/08/2024 6:27 AM EST) Pathologist [facility] Sodium 138 133 - 145 mmol/L LAB CHEMISTRY METHOD 07/08/2024 11:08 AM [facility] Potassium 4.4 3.5 - 5.5 mmol/L LAB CHEMISTRY METHOD 07/08/2024 11:08 AM [facility] Chloride 98 96 - 110 mmol/L LAB CHEMISTRY METHOD 07/08/2024 11:08 AM [facility] CO2 37(H) 21 - 32 mmol/L LAB CHEMISTRY METHOD 07/08/2024 11:08 AM [facility] Anion Gap 3 3 - 11 LAB CHEMISTRY METHOD 07/08/2024 11:08 AM [facility] Glucose 148(H) 70 - 100 mg/dL LAB CHEMISTRY METHOD 07/08/2024 11:08 AM [facility] BUN 26(H) 5 - 25 mg/dL LAB CHEMISTRY METHOD 07/08/2024 11:08 AM [facility] Creatinine 0.59 0.50 - 1.10 mg/dL LAB CHEMISTRY METHOD 07/08/2024 11:08 AM [facility] eGFR 94 >=60 mL/min/1. 73m2 LAB CHEMISTRY METHOD 07/08/2024 11:08 AM [facility] Comment:Calculation based on the Chronic Kidney Disease Epidemiology Collaboration (CKD-EPI) equation refit without adjustment for race. BUN/Creatinine Ratio 44.1 LAB CHEMISTRY METHOD 07/08/2024 11:08 AM [facility] Calcium 8.5 8.5 - 10.5 mg/dL LAB CHEMISTRY METHOD 07/08/2024 11:08 AM [facility] Blood Venous blood specimen / Unknown Venipuncture / Unknown 07/08/2024 6:27 AM EST 07/08/2024 9:00 AM EST us Viola Tubbs MD LAB BLOOD ORDERABLES Final Resu lt [facility] [address] [place] [address], documented in this encounter Visit Diagnoses Diagnosis Encounter for other general examination documented in this encounter Care Teams Operations Developer Relationship Specialty Start Date End Date Dmitry Jason MD [address] [place] [phone] PCP - General Internal Medicine 07/02/24 documented as of this encounter
--- OUTSIDE RECORDS SUMMARY | 2025-02-26 18:06 | XMS_ITS | Clinical Summary ---
Author Organization [address] [facility] Address [address] [place] [address] Phone Care Team Providers Care [employer] Truck Driver Name Role Phone Dmitry Jason MD Primary Care Provider [phone] Social History Tobacco Use Types Packs/Day Years [...] 1997 Zoster Vaccines (1 of 2) 1997 Falls Risk Assessment 05/08/2022 Hepatitis C Screening 05/08/2022 Medicare Annual Wellness Visit 05/08/2022 Social Influencers of Health Screening 05/08/2022 RSV Immunization Adult Patie nts (1 - 1-dose 75+ series) 2022 Depression Screening 06/05/2024 COVID-19 Vaccine (1 - 2023-2 5 season) 2025 Influenza Vaccine (#1) 2025 Osteoporosis Screening (Bone Density Screening) 10/26/2032 10/26/2022 [...] age to complete this topic Meningococcal B Vaccine Aged Out No l onger eligible based on patient's age to complete this topic RSV Immunization Patients Un yonis 20 months Aged Out No longer eligible b ased on patient's age to complete this topic Varicella Vaccines Aged Out No longer eligible based on patient's age to complete this topic Procedures Procedure Name Priority Date/Time Associated Diagnosis Comments [facility] DEX[facility] AXIAL SKELETON Routine 10/26/2022 11:00 AM EDT Age-related osteoporosis without current pathological fracture [facility] SCREENING DIGITAL Routine 10/25/2022 4:04 PM EDT Encounter for screening mammogram for malignant neoplasm of breast from Last 3 Months or Most Recently Relevant to Health Maintenance Results * [facility] DEX[facility] AXIAL SKELETON (10/26/2022 11:00 AM EDT) Anatomical Region Laterality Modality Mammography 10/25/2022 1:52 PM EDT Narrative 10/26/2022 11:00 AM EDT [facility] Diagnostic Imaging Department [address] [place] [address] Patient: ANU MOORE/Age/Sex: 1945 - 77 - F Unit#: [id number] Location/Status: SPDIMAM/REG CLI Mnemonic[facility] Ordering Physician: MARCELA MAE [facility] Dexa Axial Skeleton - 10/25/22 - 1511 HISTORY: The patient is a 77-year-old postmenopausal female with clinical concern for metabolic bone disease. FINDINGS: Dual [...] 86% of that of age matched controls. This yields a T-score of -3.2 and a Z-score of -0.8 which is diagnostic of osteoporosis. IMPRESSION: 1. Osteoporosis. There has been a decrease of 17.7% in bone mineral density in the lumbar spine since the prior examination of 11/11/2016. There has been a decrease of 16.8% in bone mineral density in the right femur and a decrease of 21.8% in bone mineral density in the left femur. 2. FRAX analysis yields a 10-year probability of major osteoporotic fracture of 27.5% and a 10-year probability of hip fracture of 13.1%. Code 33098 Dictating Physician: EDU MATHUR MD Electronically Signed by: EDU MATHUR MD Dic Date/Time: 10/26/22 1059 Sign date/Time: 10/26/22 1100 Procedure Note Edu Mathur MD - 07/07/2023 [facility] Diagnostic Imaging Department [address] [place] [address] Patient: ANU MOORE/Age/Sex: 1945 - 77 - F Unit#: [id number] Location/Status: SPDIMAM/REG CLI Mnemonic/Ordering Site: [facility] Ordering Physician: MARCELA MAE [facility] Dexa Axial Skeleton - 10/25/221510 HISTORY: The patient is a 77-year-old postmenopausal [...] density of the femurs bilaterally is 0.608 gm/[id number] is 60% of that of young normals [...] probability of hip fracture of 13.1%. Code 18767 Dictating Physician: EDU MATHUR MD Electronically Signed by: EDU MATHUR MD Dic Date/Time: 10/26/22 1059 Sign date/Time: 10/26/22 1100 us Marcela Mae ENVIRONMENTAL PROTECTION INSPECTOR IMG BI PROCEDURES Final Result * [facility] S[facility]EN[facility] (10/25/2022 4:04 PM EDT) Anatomical Region Laterality Modality Mammography 10/25/2022 1:54 PM EDT Narrative 10/25/2022 4:04 PM EDT [facility] Diagnostic Imaging Department [address] [place] [address] Patient: ANU MOOREO.B./Age/Sex: 1945 - 77 - F Unit#: [id number] Location/Status: SPDIMAM/REG CLI Mnemonic/Ordering Site: [facility] Ordering Physician: MARCELA MAE [facility] Screening Digital - 10/25/22 - 1425 EXAM: [facility] Screening Digital EXAM DATE AND TIME: 10/25/2022 2:28 PM HISTORY: Screening. 25-30 pound weight loss over past 6 years per technologist notes. Family history of breast carcinoma including mother at age 50 and sister at age 40. COMPARISON: 11/11/16, 10/22/15, 10/17/14 TECHNIQUE: CC and MLO views of both breasts were obtained using full field digital mammography. Bilateral digital breast tomosynthesis was performed in the MLO projection. Computer aided detection with [employer] 7.2-H and [employer]os[employer] 3D 3.1 was employed. TISSUE DENSITY: c. [...] Routine screening mammogram BILATERAL in 1 year. [id number], 44816 3342F, 7025F Dictating Physician: AMANDO PABON MD Electronically Signed by: AMANDO PABON MD Dic Date/Time: 10/25/22 160 Sign date/Time: 10/25/22 160 Procedure Note Amando Pabon MD - 07/07/2023 [facility] Diagnostic Imaging Department [address] [place] [address] Patient: ANU MOORE/Age/Sex: 1945 - 77 - F Unit#: [id number] [facility]Ordering Site: [facility] Ordering Physician: MARCELA MAE [facility] Screening Digital - 10/25/22 - 142 EXAM: [facility] Screening Digital EXAM DATE AND TIME: [...] the MLO projection. Computer aided detection with i[employer] 7.2-H andSoshowise 3D 3.1 was employed. TISSUE DENSITY: c. [...] Routine screening mammogram BILATERAL in 1 year. [id number], 51029 3342F, 7025F Dictating Physician: AMANDO PABON MD Electronically Signed by: AMANDO PABON MD Dic Date/Time: 10/25/22 1603 Sign date/Time: 10/25/22 1604 Marcela Mae NP IMG BI PROCEDURES Final Result from Last 3 Months or Most Recently Relevant to Health Maintenance Insurance MEDICARE [facility] Care Teams [employer] Truck Driver Relationship Specialty Start Date End Date Dmitry Jason MD [address] [place] [id number] PCP - General Internal Medicine 07/02/24
--- OUTSIDE RECORDS SUMMARY | 2025-02-26 18:06 | XMS_ITS | Encounter Summary ---
Author Organization [facility] Address [address] [place] [address] Care Team Providers Care Manager Of Regulatory Affairs Name Role Phone Dmitry Jason MD Primary Care Provider [phone] Encounter Details Date Type Department Care Team (Late st Contact Info) Description 07/05/2024 Lab Requisition [facility] - Main Lab [address] [facility] [place] [address] Viola Tubbs MD [address] [place], [place] [phone] Encounter for other general examination Social History [...] documented in this encounter Care Teams Manager Of Regulatory Affairs Relationship Specialty Start Date End Date Dmitry Jason MD [address] [place], [place] [phone] PCP - General Internal Medicine 07/02/24 documented as of this encounter
--- OUTSIDE RECORDS SUMMARY | 2025-02-26 18:06 | XMS_ITS | Encounter Summary ---
Author Organization [facility] Address [address] [place] [address] Care Team Providers Care Director Of Photography Name Role Phone Dmitry Jason MD Primary Care Provider [phone] Encounter Details Date Type Department Care Team (Late st Contact Info) Description 07/03/2024 Lab Requisition [facility] - Main Lab [address] [place] [address] Viola Tubbs MD [address] [place] [address] Encounter for other general examination Social History [...] LAB CHEMISTRY METHOD 07/03/2024 12:38 PM EST [facility] Potassium 5.0 3.5 - 5.5 mmol/L LAB CHEMISTRY METHOD 07/03/2024 12:38 PM EST [facility] Chloride 94(L) 96 - 110 mmol/L LAB CHEMISTRY METHOD 07/03/2024 12:38 PM EST [facility] CO2 42(HH) 21 - 32 mmol/L LAB CHEMISTRY METHOD 07/03/2024 12:38 PM [facility] Anion Gap 2(L) 3 - 11 LAB CHEMISTRY METHOD 07/03/2024 12:38 PM [facility] Glucose 92 70 - 100 mg/dL LAB CHEMISTRY METHOD 07/03/2024 12:38 PM [facility] BUN 29(H) 5 - 25 mg/dL LAB CHEMISTRY METHOD 07/03/2024 12:38 PM [facility] Creatinine 0.66 0.50 - 1.10 mg/dL LAB CHEMISTRY METHOD 07/03/2024 12:38 PM [facility] eGFR 91 >=60 mL/min/1. 73m2 LAB CHEMISTRY METHOD 07/03/2024 12:38 PM [facility] Comment:Calculation based on the Chronic Kidney Disease Epidemiology Collaboration (CKD-EPI) equation refit without adjustment for race. BUN/Creatinine Ratio 43.9 LAB CHEMISTRY METHOD 07/03/2024 12:38 PM [facility] Calcium 9.2 8.5 - 10.5 mg/dL LAB CHEMISTRY METHOD 07/03/2024 12:38 PM [facility] Blood Venous blood specimen / Unknown Venipuncture / Unknown 07/03/2024 5:55 AM EST 07/03/2024 10:31 AM EST us Viola Tubbs MD LAB BLOOD ORDERABLES Final Resu lt [facility] [address] [place] [address], documented in this encounter Visit Diagnoses Diagnosis Encounter for other general examination documented in this encounter Care Teams Director Of Photography Relationship Specialty Start Date End Date Dmitry Jason MD [address] [place] [address] PCP - General Internal Medicine 07/02/24 documented as of this encounter
--- OUTSIDE RECORDS SUMMARY | 2025-02-26 18:06 | XMS_ITS | Encounter Summary ---
Author Organization [facility] Address [address] [place] [address] Care Team Providers Care Avionics Technician Name Role Phone Dmitry Jason MD Primary Care Provider [phone] Encounter Details Date Type Department Care Team (Late st Contact Info) Description 06/25/2024 Lab Requisition [facility] - Main Lab [address] [place] [address] Viola Tubbs MD [address] [place] [address] Encounter for other general examination Social History [...] AM EST) WBC 10.5 4.8 - 10.8 [facility] LAB HEMETOLOGY METHOD 06/25/2024 10:51 AM [facility] [...] Resu lt [facility] [address] [place] [address], [place] [phone] * (ABNORMAL) Magnesium (06/25/2024 5:55 AM EST) Magnesium 1.7(L) 1.9 - 2.6 mg/dL LAB CHEMISTRY METHOD 06/25/2024 11:20 AM EST [facility] Blood Venous blood specimen / Unknown Venipuncture / Unknown 06/25/2024 5:55 AM EST 06/25/2024 10:03 AM EST Viola Tubbs MD LAB BLOOD ORDERABLES Final Resu lt Performing Organization Address [facility]/ZIP Co de Phone Number [facility] [address] [place] [address], [place] [phone] * (ABNORMAL) Comprehensive metabolic panel (06/25/2024 5:55 AM EST) Pathologist [facility] Sodium 141 133 - 145 mmol/L LAB [...] refit without adjustment for race. BUN/Creatinine Ratio 43.1 LAB [...] LAB BLOOD ORDERABLES Final Resu lt [facility] H[facility]PITAL LAB [address] [place] [address], documented in this encounter Visit Diagnoses Diagnosis Encounter for other general examination documented in this encounter Care Teams Avionics Technician Relationship Specialty Start Date End Date Dmitry Jason MD [address] [place] [address] PCP - General Internal Medicine 07/02/24 documented as of this encounter
--- OUTSIDE RECORDS SUMMARY | 2025-02-26 18:06 | XMS_ITS | Encounter Summary ---
Author Organization [facility] Address [address] [place] [address] Care Team Providers Care Heat Treater Helper Name Role Phone Dmitry Jason MD Primary Care Provider [phone] Encounter Details Date Type Department Care Team (Late st Contact Info) Description 06/28/2024 Lab Requisition [facility] - Main Lab [address] [facility] [place] [address] Viola Tubbs MD [address] [place] [address] Encounter for other general examination Social History [...] ORDERABLES Final Resu lt Performing Organization Address City/[facility]/ZIP Co de Phone Number [facility] [address] [place] [address], [place] [phone] * Thyroid stimulating hormone (06/28/2024 6:19 AM EST) TSH 1.72 0.40 - 4.00 mcIU/mL LAB CHEMISTRY METHOD 06/28/2024 12:29 PM EST [facility] Blood Venous blood specimen / Unknown Venipuncture / Unknown 06/28/2024 6:19 AM EST 06/28/2024 11:08 AM EST us Viola Tubbs MD LAB BLOOD ORDERABLES Final Resu lt Performing Organization Address [facility]/ZIP Co de Phone Number [facility] [address] [place] [address], [place] [phone] * Magnesium (06/28/2024 6:19 AM EST) [facility] Magnesium 2.2 1.9 - 2.6 mg/dL LAB CHEMISTRY METHOD 06/28/2024 12:22 PM EST [facility] Blood Venous blood specimen / Unknown Venipuncture / Unknown 06/28/2024 6:19 AM EST 06/28/2024 11:08 AM EST us Viola Tubbs MD LAB BLOOD ORDERABLES Final Resu lt Performing Organization Address City/[facility]/ZIP Co de Phone Number [facility] [address] [place] [address], [place] [phone] * (ABNORMAL) Comprehensive metabolic panel (06/28/2024 6:19 AM EST) Sodium 138 133 - 145 mmol/L LAB CHEMISTRY METHOD 06/28/2024 12:46 PM [facility] Potassium 4.3 3.5 - [...] refit without adjustment for race. BUN/Creatinine Ratio 73.0 LAB [...] LAB CHEMISTRY METHOD 06/28/2024 12:46 PM EST [facility] Total Protein 6.4 6.0 - 8.0 g/dL LAB CHEMISTRY METHOD 06/28/2024 12:46 PM EST [facility] Albumin 2.4(L) 3.2 - 5.0 g/dL LAB CHEMISTRY METHOD 06/28/2024 12:46 PM [facility] Total Bilirubin 0.4 0.0 - 1.4 mg/dL LAB CHEMISTRY METHOD 06/28/2024 12:46 PM EST [facility] Blood Venous blood specimen / Unknown Venipuncture / Unknown 06/28/2024 6:19 AM EST 06/28/2024 11:08 AM EST us Viola Tubbs MD LAB BLOOD ORDERABLES Final Resu lt [facility] [address] [place] [address], documented in this encounter Visit Diagnoses Diagnosis Encounter for other general examination documented in this encounter Care Teams Heat Treater Helper Relationship Specialty Start Date End Date Dmitry Jason MD [address] [place] [address] PCP - General Internal Medicine 07/02/24 documented as of this encounter
--- OUTSIDE RECORDS SUMMARY | 2025-02-26 18:06 | XMS_ITS | Encounter Summary ---
Author Organization [facility] Address [address] [place] [address] Care Team Providers Care Mental Health Counselor Name Role Phone Dmitry Jason MD Primary Care Provider [phone] Encounter Details Date Type Department Care Team (Late st Contact Info) Description 06/29/2024 Lab Requisition [facility] - Main Lab [address] [place] [address] Viola Tubbs MD [address] [place] [address] Encounter for other general examination Social History [...] LAB CHEMISTRY METHOD 06/29/2024 12:07 PM EST [facility] Potassium 5.1 3.5 - 5.5 mmol/L LAB CHEMISTRY METHOD 06/29/2024 12:07 PM EST [facility] Chloride 102 96 - 110 mmol/L LAB CHEMISTRY METHOD 06/29/2024 12:07 PM EST [facility] CO2 40(H) 21 - 32 mmol/L LAB CHEMISTRY METHOD 06/29/2024 12:07 PM [facility] Anion Gap -2(L) 3 - 11 LAB CHEMISTRY METHOD 06/29/2024 12:07 PM [facility] Glucose 68(L) 70 - 100 mg/dL LAB CHEMISTRY METHOD 06/29/2024 12:07 PM [facility] BUN 59(H) 5 - 25 mg/dL LAB CHEMISTRY METHOD 06/29/2024 12:07 PM [facility] Creatinine 0.83 0.50 - 1.10 mg/dL LAB CHEMISTRY METHOD 06/29/2024 12:07 PM [facility] eGFR 73 >=60 mL/min/1. 73m2 LAB CHEMISTRY METHOD 06/29/2024 12:07 PM [facility] Comment:Calculation based on the Chronic Kidney Disease Epidemiology Collaboration (CKD-EPI) equation refit without adjustment for race. BUN/Creatinine Ratio 71.1 LAB CHEMISTRY METHOD 06/29/2024 12:07 PM [facility] Calcium 8.8 8.5 - 10.5 mg/dL LAB CHEMISTRY METHOD 06/29/2024 12:07 PM [facility] Blood Venous blood specimen / Unknown Venipuncture / Unknown 06/29/2024 5:43 AM EST 06/29/2024 9:53 AM EST us Viola Tubbs MD LAB BLOOD ORDERABLES Final Resu lt [facility] [address] [place] [address], [place] [phone] documented in this encounter Visit Diagnoses Diagnosis Encounter for other general examination documented in this encounter Care Teams Mental Health Counselor Relationship Specialty Start Date End Date Dmitry Jason MD [address] [place] [address] PCP - General Internal Medicine 07/02/24 documented as of this encounter
--- OUTSIDE RECORDS SUMMARY | 2025-02-26 18:06 | XMS_ITS | Encounter Summary ---
Author Organization [facility] Address [address] [place] [address] Care Team Providers Care Lathe Set Up Person Name Role Phone Dmitry Jason MD Primary Care Provider [phone] Encounter Details Date Type Department Care Team (Late st Contact Info) Description 07/04/2024 Lab Requisition [facility] - Main Lab [address] [place] [address] Viola Tubbs MD [address] [place] [address] Encounter for other general examination Social History [...] LAB CHEMISTRY METHOD 07/04/2024 11:50 AM EST [facility] Potassium 4.8 3.5 - 5.5 mmol/L LAB CHEMISTRY METHOD 07/04/2024 11:50 AM EST [facility] Chloride 96 96 - 110 mmol/L LAB CHEMISTRY METHOD 07/04/2024 11:50 AM EST [facility] CO2 42(HH) 21 - 32 mmol/L LAB CHEMISTRY METHOD 07/04/2024 11:50 AM [facility] Anion Gap 1(L) 3 - 11 LAB CHEMISTRY METHOD 07/04/2024 11:50 AM [facility] Glucose 114(H) 70 - 100 mg/dL LAB CHEMISTRY METHOD 07/04/2024 11:50 AM [facility] BUN 22 5 - 25 mg/dL LAB CHEMISTRY METHOD 07/04/2024 11:50 AM [facility] Creatinine 0.66 0.50 - 1.10 mg/dL LAB CHEMISTRY METHOD 07/04/2024 11:50 AM [facility] eGFR 91 >=60 mL/min/1. 73m2 LAB CHEMISTRY METHOD 07/04/2024 11:50 AM [facility] Comment:Calculation based on the Chronic Kidney Disease Epidemiology Collaboration (CKD-EPI) equation refit without adjustment for race. BUN/Creatinine Ratio 33.3 LAB CHEMISTRY METHOD 07/04/2024 11:50 AM [facility] Calcium 8.6 8.5 - 10.5 mg/dL LAB CHEMISTRY METHOD 07/04/2024 11:50 AM [facility] Blood Venous blood specimen / Unknown Venipuncture / Unknown 07/04/2024 5:50 AM EST 07/04/2024 9:24 AM EST us Viola Tubbs MD LAB BLOOD ORDERABLES Final Resu lt [facility] [address] [place] [address], [place] [phone] documented in this encounter Visit Diagnoses Diagnosis Encounter for other general examination documented in this encounter Care Teams Lathe Set Up Person Relationship Specialty Start Date End Date Dmitry Jason MD [address] [place] [address] PCP - General Internal Medicine 07/02/24 documented as of this encounter
--- OUTSIDE RECORDS SUMMARY | 2025-02-26 18:06 | XMS_ITS | Encounter Summary ---
Author Organization [facility] Address [address] [place] [address] Care Team Providers Care Area Director Name Role Phone Dmitry Jason MD Primary Care Provider [phone] Encounter Details Date Type Department Care Team (Late st Contact Info) Description 07/02/2024 Lab Requisition [facility] - Main Lab [address] [place] [address] Viola Tubbs MD [address] [place] [address] Encounter for other general examination Social History [...] LAB CHEMISTRY METHOD 07/02/2024 12:14 PM EST [facility] Potassium 4.9 3.5 - 5.5 mmol/L LAB CHEMISTRY METHOD 07/02/2024 12:14 PM EST [facility] Chloride 97 96 - 110 mmol/L LAB CHEMISTRY METHOD 07/02/2024 12:14 PM EST [facility] CO2 45(HH) 21 - [...] MD LAB BLOOD ORDERABLES Final Resu lt [facility] [address] [place] [address], [place] [phone] documented in this encounter Visit Diagnoses Diagnosis Encounter for other general examination documented in this encounter Care Teams Area Director Relationship Specialty Start Date End Date Dmitry Jason MD [address] [place] [address] PCP - General Internal Medicine 07/02/24 documented as of this encounter
[2025-02-26 20:35] VITALS: BP 140/81; PULSE 90
[2025-02-26 22:43] VITALS: BP 144/81; PULSE 75; RESP 22; TEMP 36.4; O2SAT 96
[2025-02-27 00:03] VITALS: BP 153/96; PULSE 85; RESP 22; TEMP 36.6; O2SAT 95
[2025-02-27 05:43] VITALS: BP 148/84; PULSE 74; RESP 15; TEMP 36.3; O2SAT 97
[2025-02-27 05:45] LABS: Glucose, Whole Blood 301 mg/dL (60-115)
--- NOTE | 2025-02-27 06:32 | PC.NURSE ---
patient states to nurse that she can call transport at 0830. charge Nicolette aware. POC glucose 301. PA Rashi aware, no further orders. pt in bed sitting in fowlers with even non labored respirations, call roland in reach
--- NOTE | 2025-02-27 08:21 | PC.NURSE ---
Spoke to pt's Joseph who will be here to hand picker patient in 10 minutes for discharge home.
[2025-02-27 08:38] VITALS: BP 148/84; PULSE 74; RESP 15; TEMP 36.3; O2SAT 97
== END 2025-02-27 08:55 | disposition home or self-care (01) ==
PROVIDERS: Physician Assistant Medical; Emergency Provider Student in an Organized Health Care Education/Training Program
DX: J44.9 Chronic obstructive pulmonary disease, unspecified (principal); J96.11 Chronic respiratory failure with hypoxia; E11.9 Type 2 diabetes mellitus without complications; Z99.81 Dependence on supplemental oxygen; R63.6 Underweight; Z68.1 Body mass index [BMI] 19.9 or less, adult; Z79.899 Other long term (current) drug therapy
CPT/HCPCS: 36415; 71046; 80048; 80053; 82803; 82947; 84484; 85025; 85610; 93005; 94640; 99284; 99285

== ENCOUNTER → 2025-02-26 15:44 | Outpatient (BNV) | payer MEDICARE, SELFPAY | PROVIDERS: Emergency Provider Student in an Organized Health Care Education/Training Program; Visit Provider Radiology Diagnostic Radiology | DX: R06.02 Shortness of breath (principal) | CPT/HCPCS: 71046 ==

== ENCOUNTER → 2025-02-26 15:45 | Outpatient (BNV) | payer MEDICARE, SELFPAY | PROVIDERS: Emergency Provider Student in an Organized Health Care Education/Training Program; Visit Provider Internal Medicine Cardiovascular Disease | DX: R94.31 Abnormal electrocardiogram [ECG] [EKG] (principal); R06.02 Shortness of breath | CPT/HCPCS: 93010 ==

== ENCOUNTER 2025-03-20 13:19 | Outpatient (AMB) | payer MEDICARE, SELFPAY ==
[2025-03-20 13:25] VITALS: BP 142/66; PULSE 74; O2SAT 88
--- NOTE | 2025-03-20 13:25 | A.OFFVIS_ITS ---
Vital Signs 3 03/20/25 13:25 Height 5 ft 3 in BMI Reason not done Patient refused/unable BP 142/66 H Blood Pressure Location Rt brachial Position Sitting Pulse 74 Pulse Source Pulse Oximeter Pulse Oximetry (%) 88 L Oxygen Delivery Method Room Air Intake Visit Reasons: T2DM Intake Note: Patient presents today for a follow-up on Type 2 Diabetes Mellitus: Last Diabetic eye exam was on: DUE? Last Podiatry exam was on: Patient does not see a Member Service Specialist Most recent HbA1c: 7.2%, 03/20/2025 Random Glucose: 209 mg/dL Well Cleaner Required: No Accompanied by: Self / Same As Patient Allergies sulfa Allergy (Unknown, Verified 03/20/25 13:41) diarrhea midazolam (From Versed) Adverse Reaction (Severe, Verified 03/20/25 13:41) bradycardia HPI Comments Details: 79-year-old female presents today for diabetic follow up Medical history: Emphysema, SVT, osteopenia, hip fracture POC A1C today 7.2% from 08/21/24 8.0% from 8.3% 05/22/24 from 10.2 01/2024 Current prescribed medications: Insulin 8units daily~11 am, not taking lispro. 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 She is hesitant to start new medications CGM reviewed-GMI 8.6% with high 63%, TGT 36%, low 1%, lows continue to be overnight. She was recently on a five day course of prednisone for copd exacerbation. Her 02 was 80% today on 1 L, she increased it to 2L and then to 4L with improvement in oxygen to 88%. She says her breathing feels basline. She takes her insulin in the morning. Keeps juice beside the bed. She usually is taking a snack at around 4pm-coffee and fiber one and then dinner 6-8pm. Before bed she eats a small snack-pancake, waffle or low sugar ice cream. Weight stable at 79 pounds ROS CONSTITUTIONAL: Denies weight loss, fever and chills. HEENT: Denies changes in vision and hearing. RESPIRATORY: Denies SOB and cough. CV: Denies palpitations and CP GI: Denies abdominal pain, nausea, vomiting and diarrhea. : Denies dysuria and urinary frequency. MSK: Denies new myalgia and joint pain. SKIN: Denies rash and pruritus. NEUROLOGICAL: Denies headache PSYCHIATRIC: Denies recent changes in mood. PHYSICAL EXAM: GENERAL: Alert and oriented x 3. NAD EYES: EOMI. Anicteric. HENT: Moist mucous membranes. No scleral icterus. No cervical lymphadenopathy. LUNGS: Clear to auscultation bilaterally. CARDIOVASCULAR: Regular rate and rhythm. No murmur. No JVD. ABDOMEN: Soft, non-tender +bs EXTREMITIES: No edema. Non-tender. SKIN: No rashes or lesions. Warm. NEUROLOGIC: No focal neurological deficits. CN II-XII grossly intact PSYCHIATRIC: Cooperative. Appropriate mood and affect [facility] Medical History Abdominal wall bulge Closed intertrochanteric fracture of left hip Chronic hypotension Closed hip fracture Hypotension Hypotension Tachycardia Diabetes Sepsis Pneumonia Acute sinusitis Hypoxemia Pulmonary emphysema Pneumothorax Diabetes mellitus with microalbuminuria, without long-term current use of insulin Vaccination refused by patient Underweight Intermittent palpitations Diabetes mellitus with hyperglycemia, without long-term current use of insulin Hx of fracture of wrist H/O fracture of wrist Surgical History H/O wrist surgery History of femoral hernia repair Family History Father Diabetes mellitus Mother Essential hypertension Sister Breast cancer Social History Household Members: Family Housing: House Do you presently have visiting nurse or other home services: Yes (adalberto CRAWFORD) Alcohol intake: never Comment: bed alarm is not working. put chair alarm on her Patient Tobacco Use Status: Never used Tobacco e-Cigarette/Vaping Use: Never Used Second Hand Smoke Exposure: No Advance Directives Date on File: 06/16/22 service: No Current occupational status: retired Cognitive needs: No Hearing needs: No Vision needs: No Physical Exam Vital Signs: Last Vital Signs Pulse 74 03/20/25 13:25 BP 142/66 H 03/20/25 13:25 Pulse Ox 88 L 03/20/25 13:25 Oxygen Delivery Method Room Air 03/20/25 13:25 Results AMB Hemoglobin A1c 2 AMB Hemoglobin A1c 7.2 % Last Edit by ALICE Harrison on 03/20/25 13:54 Results Reviewed Results Reviewed: Laboratory Last Values Glucose (Clinic) 209 mg/dL (60-115) H 03/20/25 13:45 Hgb A1c (Clinic) 7.2 % (4.0-6.0) H 03/20/25 13:50 Assessment & Plan Assessment & Plan (1) Diabetes mellitus with hyperglycemia, without long-term current use of insulin: Code(s): E11.65 - Type 2 diabetes mellitus with hyperglycemia Category: Medical Qualifiers: Diabetes mellitus type: type 2 Qualified Code(s): E11.65 - Type 2 diabetes mellitus with hyperglycemia (2) Uncontrolled type 2 diabetes mellitus with hyperglycemia: Code(s): E11.65 - Type 2 diabetes mellitus with hyperglycemia Category: Medical Plan Diabetes Adequately controlled for age especially given overnight hypoglycemia I really urged her to start acarbose at dinner. She will think about this. She is going to change her insulin to evening and see if this may help her prevent lows She treats hypoglycemia with juice and rechecks She has chronic diarrhea for which she would like an [facility] consult which I placed She can follow up in 3 months or sooner as needed Orders: Orders 2 AMB Hemoglobin A1c Today E11.65 - Type 2 diabetes mellitus with hyperglycemia Referrals 2 Gastroenterology Referral K52.9 - Noninfective gastroenteritis and colitis, unspecified Medications: Changed 2 From insulin glargine (Lantus Solostar U-100 Insulin) 8 units (0.08 mL) subcut DAILY 90 days 9 mL 3RF To insulin glargine (Lantus Solostar U-100 Insulin) 8 units (0.08 mL) subcut QPM 7.2 mL 3RF 90 days Discontinued 2 azithromycin Discontinued Reason: Doctor's Order For 250 mg dose pack: take 500 mg today (day 1), then 250 mg for 4 days (days 2-5) 6 tabs 0RF prednisone Discontinued Reason: Doctor's Order 40 mg (2 x 20 mg) PO DAILY 5 days 10 tabs 0RF Coding Level of Care Code Est Pt Level 4 (55675) Diagnoses Type 2 diabetes mellitus with hyperglycemia, without long-term current use of insulin E11.65 Diabetes mellitus type: type 2 Uncontrolled type 2 diabetes mellitus with hyperglycemia E11.65
[2025-03-20 13:49] LABS: Glucose, Whole Blood 209 mg/dL (60-115)
--- OUTSIDE RECORDS SUMMARY | 2025-03-20 16:43 | XMS_ITS | Encounter Summary ---
Author Organization [facility] Address [address] [place] [address] Care Team Providers Care Nitro Man Name Role Phone Dmitry Jason MD Primary Care Provider [phone] Encounter Details Date Type Department Care Team (Late st Contact Info) Description 06/28/2024 Lab Requisition [facility] - Main Lab [address] [facility] [place] [address] Viola Tubbs MD [address] [place] [address] Encounter for other general examination Social History [...] K/mcL LAB HEMETOLOGY METHOD 06/28/2024 11:53 AM [facility] RBC 3.70(L) 3.80 - 4.80 M/mcL LAB HEMETOLOGY METHOD 06/28/2024 11:53 AM [facility] Hemoglobin 10.1(L) 11.5 - 16.0 g/dL LAB HEMETOLOGY METHOD 06/28/2024 11:53 AM [facility] Hematocrit 35.5 35.0 - 47.0 % LAB HEMETOLOGY METHOD 06/28/2024 11:53 AM [facility] MCV 95.9 79.0 - 98.0 FL LAB HEMETOLOGY METHOD 06/28/2024 11:53 AM [facility] MCH 27.3 27.0 - 32.0 pcg LAB HEMETOLOGY METHOD 06/28/2024 11:53 AM [facility] MCHC 28.5(L) 32.0 - 37.0 g/dL LAB HEMETOLOGY METHOD 06/28/2024 11:53 AM [facility] RDW 18.8(H) 11.0 - 15.0 % LAB HEMETOLOGY METHOD 06/28/2024 11:53 AM [facility] Platelets 136 130 - 400 K/mcL LAB HEMETOLOGY METHOD 06/28/2024 11:53 AM [facility] MPV 9.9 7.0 - 11.0 FL LAB HEMETOLOGY METHOD 06/28/2024 11:53 AM [facility] NRBC 0.0 <1.0 % LAB HEMETOLOGY METHOD 06/28/2024 11:53 AM [facility] NRBC Absolute 0.00 <0.10 K/mcL LAB HEMETOLOGY METHOD 06/28/2024 11:53 AM [facility] Neutrophils Relative 81.9 % LAB HEMETOLOGY METHOD 06/28/2024 11:53 AM [facility] Lymphocytes Relative 8.0 % LAB HEMETOLOGY METHOD 06/28/2024 11:53 AM [facility] Monocytes Relative 9.3 % LAB HEMETOLOGY METHOD 06/28/2024 11:53 AM [facility] Eosinophils Relative 0.1 % LAB HEMETOLOGY METHOD 06/28/2024 11:53 AM [facility] Basophils Relative 0.1 % LAB HEMETOLOGY METHOD 06/28/2024 11:53 AM [facility] Immature Granulocytes Relative 0.6 % LAB HEMETOLOGY METHOD 06/28/2024 11:53 AM [facility] Neutrophils Absolute 6.51 1.50 - 7.00 K/mcL LAB HEMETOLOGY METHOD 06/28/2024 11:53 AM [facility] Lymphocytes Absolute 0.64(L) 1.00 - 5.00 K/mcL LAB HEMETOLOGY METHOD 06/28/2024 11:53 AM [facility] Monocytes Absolute 0.74 0.20 - 1.00 K/mcL LAB HEMETOLOGY METHOD 06/28/2024 11:53 AM [facility] Eosinophils Absolute 0.01 0.00 - 0.50 K/mcL LAB HEMETOLOGY METHOD 06/28/2024 11:53 AM [facility] Basophils Absolute 0.01 0.00 - 0.20 K/mcL LAB HEMETOLOGY METHOD 06/28/2024 11:53 AM [facility] Immature Granulocytes Absolute 0.05(H) 0.00 - 0.03 K/mcL LAB HEMETOLOGY METHOD 06/28/2024 11:53 AM [facility] Blood Venous blood specimen / Unknown Venipuncture / Unknown 06/28/2024 6:19 AM EST 06/28/2024 11:08 AM EST us Viola Tubbs MD LAB BLOOD ORDERABLES Final Resu lt Performing Organization Address City/[facility]/ZIP Co de Phone Number [facility] [address] [place] [address], [place] [phone] * Thyroid stimulating hormone (06/28/2024 6:19 AM EST) TSH 1.72 0.40 - 4.00 mcIU/mL LAB CHEMISTRY METHOD 06/28/2024 12:29 PM EST [facility] Blood Venous blood specimen / Unknown Venipuncture / Unknown 06/28/2024 6:19 AM EST 06/28/2024 11:08 AM EST us Viola Tubbs MD LAB BLOOD ORDERABLES Final Resu lt Performing Organization Address [facility]/ZIP Co de Phone Number [facility] [address] [place] [address], [place] [phone] * Magnesium (06/28/2024 6:19 AM EST) [facility] Magnesium 2.2 1.9 - 2.6 mg/dL LAB CHEMISTRY METHOD 06/28/2024 12:22 PM EST [facility] Blood Venous blood specimen / Unknown Venipuncture / Unknown 06/28/2024 6:19 AM EST 06/28/2024 11:08 AM EST us Viola Tubbs MD LAB BLOOD ORDERABLES Final Resu lt Performing Organization Address City/[facility]/ZIP Co de Phone Number [facility] [address] [place] [address], [place] [phone] * (ABNORMAL) Comprehensive metabolic panel (06/28/2024 6:19 [...] [facility] Comment:Calculation based on the Chronic [...] PM EST [facility] Total Protein 6.4 [...] Resu lt [facility] [address] [place] [address], documented in this encounter Visit Diagnoses Diagnosis Encounter for other general examination documented in this encounter Care Teams Nitro Man Relationship Specialty Start Date End Date Dmitry Jason MD [address] [place] [phone] PCP - General Internal Medicine 07/02/24 documented as of this encounter
--- OUTSIDE RECORDS SUMMARY | 2025-03-20 16:43 | XMS_ITS | Encounter Summary ---
Author Organization [facility] Address [address] [place] [address] Care Team Providers Care Log Roper Name Role Phone Dmitry Jason MD Primary Care Provider [phone] Encounter Details Date Type Department Care Team (Late st Contact Info) Description 06/29/2024 Lab Requisition [facility] - Main Lab [address] [place] [address] Viola Tubbs MD [address] [place] [address] Encounter for other general examination Social History [...] LAB CHEMISTRY METHOD 06/29/2024 12:07 PM EST [facility] Potassium 5.1 3.5 - 5.5 mmol/L LAB CHEMISTRY METHOD 06/29/2024 12:07 PM EST [facility] Chloride 102 96 - 110 mmol/L LAB CHEMISTRY METHOD 06/29/2024 12:07 PM EST [facility] CO2 40(H) 21 - [...] MD LAB BLOOD ORDERABLES Final Resu lt [facility] [address] [place] [address], [place] [phone] documented in this encounter Visit Diagnoses Diagnosis Encounter for other general examination documented in this encounter Care Teams Log Roper Relationship Specialty Start Date End Date Dmitry Jason MD [address] [place] [address] PCP - General Internal Medicine 07/02/24 documented as of this encounter
--- OUTSIDE RECORDS SUMMARY | 2025-03-20 16:43 | XMS_ITS | Encounter Summary ---
Author Organization [facility] Address [address] [place] [address] Care Team Providers Care Land Measurer Name Role Phone Dmitry Jason MD Primary Care Provider [phone] Encounter Details Date Type Department Care Team (Late st Contact Info) Description 07/04/[address] [facility] - Main Lab [address] [place] [address] Viola Tubbs MD [address] [place] [phone] Encounter for other general examination Social History [...] LAB CHEMISTRY METHOD 07/04/2024 11:50 AM EST [facility] Potassium 4.8 3.5 - 5.5 mmol/L LAB CHEMISTRY METHOD 07/04/2024 11:50 AM EST [facility] Chloride 96 96 - 110 mmol/L LAB CHEMISTRY METHOD 07/04/2024 11:50 AM EST [facility] CO2 42(HH) 21 - 32 mmol/L LAB CHEMISTRY METHOD 07/04/2024 11:50 AM [facility] Anion Gap 1(L) 3 - 11 LAB CHEMISTRY METHOD 07/04/2024 11:50 AM [facility] Glucose 114(H) 70 - 100 mg/dL LAB CHEMISTRY METHOD 07/04/2024 11:50 AM [facility] BUN 22 5 - 25 mg/dL LAB CHEMISTRY METHOD 07/04/2024 11:50 AM [facility] Creatinine 0.66 0.50 - 1.10 mg/dL LAB CHEMISTRY METHOD 07/04/2024 11:50 AM [facility] eGFR 91 >=60 mL/min/1. 73m2 LAB CHEMISTRY METHOD 07/04/2024 11:50 AM [facility] Comment:Calculation based on the Chronic Kidney Disease Epidemiology Collaboration (CKD-EPI) equation refit without adjustment for race. BUN/Creatinine Ratio 33.3 LAB CHEMISTRY METHOD 07/04/2024 11:50 AM [facility] Calcium 8.6 8.5 - 10.5 mg/dL LAB CHEMISTRY METHOD 07/04/2024 11:50 AM [facility] Blood Venous blood specimen / Unknown Venipuncture / Unknown 07/04/2024 5:50 AM EST 07/04/2024 9:24 AM EST us Viola Tubbs MD LAB BLOOD ORDERABLES Final Resu lt [facility] [address] [place] [address], [place] [phone] documented in this encounter Visit Diagnoses Diagnosis Encounter for other general examination documented in this encounter Care Teams Land Measurer Relationship Specialty Start Date End Date Dmitry Jason MD [address] [place] [phone] PCP - General Internal Medicine 07/02/24 documented as of this encounter
--- OUTSIDE RECORDS SUMMARY | 2025-03-20 16:43 | XMS_ITS | Encounter Summary ---
Author Organization [facility] Address [address] [place] [address] Care Team Providers Care Development Geologist Name Role Phone Dmitry Jason MD Primary Care Provider [phone] Encounter Details Date Type Department Care Team (Late st Contact Info) Description 06/25/2024 Lab Requisition [facility] - Main Lab [address] [place] [address] Viola Tubbs MD [address] [place] [address] Encounter for other general examination Social History [...] AM EST) WBC 10.5 4.8 - 10.8 K/[facility] LAB HEMETOLOGY METHOD 06/25/2024 10:51 AM [facility] [...] Resu lt [facility] [address] [place] [address], [place] [phone] * (ABNORMAL) Magnesium (06/25/2024 5:55 AM EST) Magnesium 1.7(L) 1.9 - 2.6 mg/dL LAB CHEMISTRY METHOD 06/25/2024 11:20 AM EST [facility] Blood Venous blood specimen / Unknown Venipuncture / Unknown 06/25/2024 5:55 AM EST 06/25/2024 10:03 AM EST Viola Tubbs MD LAB BLOOD ORDERABLES Final Resu lt Performing Organization Address [facility]/ZIP Co de Phone Number [facility] [address] [place] [address], [place] [phone] * (ABNORMAL) Comprehensive metabolic panel (06/25/2024 5:55 AM EST) Pathologist [facility] Sodium 141 133 - 145 mmol/L LAB [...] AM [facility] Comment:Calculation based on the Chronic [...] LAB BLOOD ORDERABLES Final Resu lt [facility] [address] [place] [address], documented in this encounter Visit Diagnoses Diagnosis Encounter for other general examination documented in this encounter Care Teams Development Geologist Relationship Specialty Start Date End Date Dmitry Jason MD [address] [place] [phone] PCP - General Internal Medicine 07/02/24 documented as of this encounter
--- OUTSIDE RECORDS SUMMARY | 2025-03-20 16:43 | XMS_ITS | Encounter Summary ---
Author Organization [facility] Address [address] [place] [address] Care Team Providers Care Bruise Trimmer Name Role Phone Dmitry Jason MD Primary Care Provider [phone] Encounter Details Date Type Department Care Team (Late st Contact Info) Description 07/05/2024 Lab Requisition [facility] - Main Lab [address] [facility] [place] [address] Viola Tubbs MD [address] [place], [place] [phone] Encounter for other general examination Social History [...] examination documented in this encounter Care Teams Bruise Trimmer Relationship Specialty Start Date End Date Dmitry Jason MD [address] [place], [place] [phone] PCP - General Internal Medicine 07/02/24 documented as of this encounter
--- OUTSIDE RECORDS SUMMARY | 2025-03-20 16:43 | XMS_ITS | Encounter Summary ---
Author Organization [facility] Address [address] [place] [address] Care Team Providers Care Brewery Technician Name Role Phone Dmitry Jason MD Primary Care Provider [phone] Encounter Details Date Type Department Care Team (Late st Contact Info) Description 07/02/[address] [facility] - Main Lab [address] [place] [address] Viola Tubbs MD [address] [place] [address] Encounter for other general examination Social History [...] LAB CHEMISTRY METHOD 07/02/2024 12:[address] [facility] Potassium 4.9 3.5 - 5.5 mmol/L LAB CHEMISTRY METHOD 07/02/2024 12:[address] [facility] Chloride 97 96 - 110 mmol/L LAB CHEMISTRY METHOD 07/02/2024 12:[address] [facility] CO2 45(HH) 21 - 32 mmol/L LAB CHEMISTRY METHOD 07/02/2024 12:14 PM [facility] Anion Gap -2(L) 3 - 11 LAB CHEMISTRY METHOD 07/02/2024 12:14 PM [facility] Glucose 146(H) 70 - 100 mg/dL LAB CHEMISTRY METHOD 07/02/2024 12:14 PM [facility] BUN 31(H) 5 - 25 mg/dL LAB CHEMISTRY METHOD 07/02/2024 12:14 PM [facility] Creatinine 0.63 0.50 - 1.10 mg/dL LAB CHEMISTRY METHOD 07/02/2024 12:14 PM [facility] eGFR 92 >=60 mL/min/1. 73m2 LAB CHEMISTRY METHOD 07/02/2024 12:14 PM [facility] Comment:Calculation based on the Chronic Kidney Disease Epidemiology Collaboration (CKD-EPI) equation refit without adjustment for race. BUN/Creatinine Ratio 49.2 LAB CHEMISTRY METHOD 07/02/2024 12:14 PM [facility] Calcium 9.2 8.5 - 10.5 mg/dL LAB CHEMISTRY METHOD 07/02/2024 12:14 PM [facility] Blood Venous blood specimen / Unknown Venipuncture / Unknown 07/02/2024 6:07 AM EST 07/02/2024 9:39 AM EST us Viola Tubbs MD LAB BLOOD ORDERABLES Final Resu lt [facility] [address] [place] [address], [place] [phone] documented in this encounter Visit Diagnoses Diagnosis Encounter for other general examination documented in this encounter Care Teams Brewery Technician Relationship Specialty Start Date End Date Dmitry Jason MD [address] [place] [phone] PCP - General Internal Medicine 07/02/24 documented as of this encounter
--- OUTSIDE RECORDS SUMMARY | 2025-03-20 16:43 | XMS_ITS | Encounter Summary ---
Author Organization [facility] Address [address] [place] [address] Care Team Providers Care Application Architect Name Role Phone Dmitry Jason MD Primary Care Provider [phone] Encounter Details Date Type Department Care Team (Late st Contact Info) Description 07/08/2024 Lab Requisition [facility] - Main Lab [address] [place] [address] Viola Tubbs MD [address] [place] [address] Encounter for other general examination Social History [...] AM EST) WBC 8.1 4.8 - 10.8 K/[facility] LAB HEMETOLOGY METHOD 07/08/2024 10:07 AM [facility] RBC 3.50(L) 3.80 - 4.80 M/mcL LAB HEMETOLOGY METHOD 07/08/2024 10:07 AM [facility] Hemoglobin 9.5(L) 11.5 - 16.0 g/dL LAB HEMETOLOGY METHOD 07/08/2024 10:07 AM [facility] Hematocrit 32.5(L) 35.0 - 47.0 % LAB HEMETOLOGY METHOD 07/08/2024 10:07 AM [facility] MCV 93.4 79.0 - 98.0 FL LAB HEMETOLOGY METHOD 07/08/2024 10:07 AM [facility] MCH 27.3 27.0 - 32.0 pcg LAB HEMETOLOGY METHOD 07/08/2024 10:07 AM [facility] MCHC 29.2(L) 32.0 - 37.0 g/dL LAB HEMETOLOGY METHOD 07/08/2024 10:07 AM [facility] RDW 18.5(H) 11.0 - 15.0 % LAB HEMETOLOGY METHOD 07/08/2024 10:07 AM [facility] Platelets 353 130 - 400 K/mcL LAB HEMETOLOGY METHOD 07/08/2024 10:07 AM [facility] MPV 9.9 7.0 - 11.0 FL LAB HEMETOLOGY METHOD 07/08/2024 10:07 AM [facility] NRBC 0.0 <1.0 % LAB HEMETOLOGY METHOD 07/08/2024 10:07 AM [facility] NRBC Absolute 0.00 <0.10 K/mcL LAB HEMETOLOGY METHOD 07/08/2024 10:07 AM [facility] Neutrophils Relative 77.8 % LAB HEMETOLOGY METHOD 07/08/2024 10:07 AM [facility] Lymphocytes Relative 8.4 % LAB HEMETOLOGY METHOD 07/08/2024 10:07 AM [facility] Monocytes Relative 11.5 % LAB HEMETOLOGY METHOD 07/08/2024 10:07 AM [facility] Eosinophils Relative 1.5 % LAB HEMETOLOGY METHOD 07/08/2024 10:07 AM [facility] Basophils Relative 0.4 % LAB HEMETOLOGY METHOD 07/08/2024 10:07 AM [facility] Immature Granulocytes Relative 0.4 % LAB HEMETOLOGY METHOD 07/08/2024 10:07 AM [facility] Neutrophils Absolute 6.29 1.50 - 7.00 K/mcL LAB HEMETOLOGY METHOD 07/08/2024 10:07 AM [facility] Lymphocytes Absolute 0.68(L) 1.00 - 5.00 K/mcL LAB HEMETOLOGY METHOD 07/08/2024 10:07 AM [facility] Monocytes Absolute 0.93 0.20 - 1.00 K/mcL LAB HEMETOLOGY METHOD 07/08/2024 10:07 AM [facility] Eosinophils Absolute 0.12 0.00 - 0.50 K/mcL LAB HEMETOLOGY METHOD 07/08/2024 10:07 AM [facility] Basophils Absolute 0.03 0.00 - 0.20 K/mcL LAB HEMETOLOGY METHOD 07/08/2024 10:07 AM [facility] Immature Granulocytes Absolute 0.03 0.00 - 0.03 K/mcL LAB HEMETOLOGY METHOD 07/08/2024 10:07 AM [facility] Blood Venous blood specimen / Unknown Venipuncture / Unknown 07/08/2024 6:27 AM EST 07/08/2024 9:00 AM EST us Viola Tubbs MD LAB BLOOD ORDERABLES Final Resu lt Performing Organization Address [facility]/ZIP Co de Phone Number [facility] [address] [place] [address], * Magnesium (07/08/2024 6:27 AM EST) Magnesium 2.1 1.9 - 2.6 mg/dL LAB CHEMISTRY METHOD 07/08/2024 11:01 AM [facility] Blood Venous blood specimen / Unknown Venipuncture / Unknown 07/08/2024 6:27 AM EST 07/08/2024 9:00 AM EST us Viola Tubbs MD LAB BLOOD ORDERABLES Final Resu lt Performing Organization Address [facility]/ZIP Co de Phone Number [facility] [address] [place] [address], * (ABNORMAL) Basic metabolic panel (07/08/2024 6:27 AM EST) Pathologist [facility] Sodium 138 133 - 145 mmol/L LAB CHEMISTRY METHOD 07/08/2024 11:08 AM [facility] Potassium 4.4 3.5 - 5.5 mmol/L LAB CHEMISTRY METHOD 07/08/2024 11:08 AM [facility] Chloride 98 96 - 110 mmol/L LAB CHEMISTRY METHOD 07/08/2024 11:08 AM [facility] CO2 37(H) 21 - 32 mmol/L LAB CHEMISTRY METHOD 07/08/2024 11:08 AM [facility] Anion Gap 3 3 - 11 LAB CHEMISTRY METHOD 07/08/2024 11:08 AM [facility] Glucose 148(H) 70 - 100 mg/dL LAB CHEMISTRY METHOD 07/08/2024 11:08 AM [facility] BUN 26(H) 5 - 25 mg/dL LAB CHEMISTRY METHOD 07/08/2024 11:08 AM [facility] Creatinine 0.59 0.50 - 1.10 mg/dL LAB CHEMISTRY METHOD 07/08/2024 11:08 AM [facility] eGFR 94 >=60 mL/min/1. 73m2 LAB CHEMISTRY METHOD 07/08/2024 11:08 AM [facility] Comment:Calculation based on the Chronic Kidney Disease Epidemiology Collaboration (CKD-EPI) equation refit without adjustment for race. BUN/Creatinine Ratio 44.1 LAB CHEMISTRY METHOD 07/08/2024 11:08 AM [facility] Calcium 8.5 8.5 - 10.5 mg/dL LAB CHEMISTRY METHOD 07/08/2024 11:08 AM [facility] Blood Venous blood specimen / Unknown Venipuncture / Unknown 07/08/2024 6:27 AM EST 07/08/2024 9:00 AM EST us Viola Tubbs MD LAB BLOOD ORDERABLES Final Resu lt [facility] [address] [place] [address], documented in this encounter Visit Diagnoses Diagnosis Encounter for other general examination documented in this encounter Care Teams Application Architect Relationship Specialty Start Date End Date Dmitry Jason MD [address] [place] [phone] PCP - General Internal Medicine 07/02/24 documented as of this encounter
--- OUTSIDE RECORDS SUMMARY | 2025-03-20 16:43 | XMS_ITS | Encounter Summary ---
Author Organization [facility] Address [address] [place] [address] Care Team Providers Care Curriculum Assistant Principal Name Role Phone Dmitry Jason MD Primary Care Provider [phone] Encounter Details Date Type Department Care Team (Late st Contact Info) Description 07/03/2024 Lab Requisition [facility] - Main Lab [address] [place] [address] Viola Tubbs MD [address] [place] [address] Encounter for other general examination Social History [...] LAB CHEMISTRY METHOD 07/03/2024 12:38 PM EST [facility] Potassium 5.0 3.5 - 5.5 mmol/L LAB CHEMISTRY METHOD 07/03/2024 12:38 PM EST [facility] Chloride 94(L) 96 - 110 mmol/L LAB CHEMISTRY METHOD 07/03/2024 12:38 PM EST [facility] CO2 42(HH) 21 - 32 mmol/L LAB CHEMISTRY METHOD 07/03/2024 12:38 PM [facility] Anion Gap 2(L) 3 - 11 LAB CHEMISTRY METHOD 07/03/2024 12:38 PM [facility] Glucose 92 70 - 100 mg/dL LAB CHEMISTRY METHOD 07/03/2024 12:38 PM [facility] BUN 29(H) 5 - 25 mg/dL LAB CHEMISTRY METHOD 07/03/2024 12:38 PM [facility] Creatinine 0.66 0.50 - 1.10 mg/dL LAB CHEMISTRY METHOD 07/03/2024 12:38 PM [facility] eGFR 91 >=60 mL/min/1. 73m2 LAB CHEMISTRY METHOD 07/03/2024 12:38 PM [facility] Comment:Calculation based on the Chronic Kidney Disease Epidemiology Collaboration (CKD-EPI) equation refit without adjustment for race. BUN/Creatinine Ratio 43.9 LAB CHEMISTRY METHOD 07/03/2024 12:38 PM [facility] Calcium 9.2 8.5 - 10.5 mg/dL LAB CHEMISTRY METHOD 07/03/2024 12:38 PM [facility] Blood Venous blood specimen / Unknown Venipuncture / Unknown 07/03/2024 5:55 AM EST 07/03/2024 10:31 AM EST us Viola Tubbs MD LAB BLOOD ORDERABLES Final Resu lt [facility] [address] [place] [address], documented in this encounter Visit Diagnoses Diagnosis Encounter for other general examination documented in this encounter Care Teams Curriculum Assistant Principal Relationship Specialty Start Date End Date Dmitry Jason MD [address] [place] [phone] PCP - General Internal Medicine 07/02/24 documented as of this encounter
--- OUTSIDE RECORDS SUMMARY | 2025-03-20 16:43 | XMS_ITS | Clinical Summary ---
Author Organization [address] [facility] Address [address] [place] [address] Phone Care Team Providers Care Showroom Consultant Name Role Phone Dmitry Jason MD Primary Care Provider [phone] Social History Tobacco Use Types Packs/Day Years [...] Procedure Name Priority Date/Time Associated Diagnosis Comments [facility] DEXA AXIAL SKELETON Routine 10/26/2022 11:00 AM EDT Age-related osteoporosis without current pathological fracture [facility] SCREENING DIGITAL Routine 10/25/2022 4:04 PM EDT Encounter for screening mammogram for malignant neoplasm of breast from Last 3 Months or Most Recently Relevant to Health Maintenance Results * [facility] DEXA AXIAL SKELETON (10/26/2022 11:00 AM EDT) Anatomical Region Laterality Modality Mammography 10/25/2022 1:52 PM EDT Narrative 10/26/2022 11:00 AM EDT [facility] Diagnostic Imaging Department [address] [place] [address] Patient: ANU MOORE/Age/Sex: 1945 - 77 - F Unit#: [id number] Location/Status: SPDIMAM/REG CLI Mnemonic[facility] Ordering Physician: MARCELA MAE [facility] Dexa Axial Skeleton - 10/25/22 - 1511 [...] probability of hip fracture of 13.1%. Code 89380 Dictating Physician: EDU MATHUR MD Electronically Signed by: EDU MATHUR MD Dic Date/Time: 10/26/22 1059 Sign date/Time: 10/26/22 1100 Procedure Note Edu Mathur MD - 07/07/2023 [facility] Diagnostic Imaging Department [address] [place] [address] Patient: ANU MOORE/Age/Sex: 1945 - 77 - F Unit#: [id number] Location/Status: SPDIMAM/REG CLI Mnemonic/Ordering Site: [facility] Ordering Physician: MARCELA MAE [facility] Dexa Axial Skeleton - 10/25/221510 HISTORY: The [...] density of the femurs bilaterally is 0.608 gm/[id number] is 60% of that of young normals [...] probability of hip fracture of 13.1%. Code 90342 Dictating Physician: EDU MATHUR MD Electronically Signed by: EDU MATHUR MD Dic Date/Time: 10/26/22 1059 Sign date/Time: 10/26/22 1100 us Marcela Mae DISK RECORDIST IMG BI PROCEDURES Final Result * [facility] SCREENING DIGITAL (10/25/2022 4:04 PM EDT) Anatomical Region Laterality Modality Mammography 10/25/2022 1:54 PM EDT Narrative 10/25/2022 4:04 PM EDT [facility] Diagnostic Imaging Department [address] [place] [address] Patient: ANU MOOREO.B./Age/Sex: 1945 - 77 - F Unit#: [id number] Location/Status: SPDIMAM/REG CLI Mnemonic/Ordering Site: [facility] Ordering Physician: MARCELA MAE Sabas Screening Digital [...] the MLO projection. Computer aided detection with TheDigitel 7.2-H and [employer] 3D 3.1 was employed. TISSUE DENSITY: c. [...] Routine screening mammogram BILATERAL in 1 year. [address]80, 48728 3342F, 7025F Dictating Physician: AMANDO PABON MD Electronically Signed by: AMANDO PABON MD Dic Date/Time: 10/25/22 160 Sign date/Time: 10/25/22 160 Procedure Note Amando Pabon MD - 07/07/2023 [facility] Diagnostic Imaging Department [address] [place] [address] Patient: ANU MOORE/Age/Sex: 1945 - 77 - F Unit#: [id number] [facility] Ordering Physician: MARCELA MAE [facility] Screening Digital - 10/25/22 - 142 EXAM: [facility] Screening Digital EXAM DATE AND TIME: 10/25/2022 [...] MLO projection. Computer aided detection with iCAD Quest appLook 7.2-H andBonica.co 3D 3.1 was employed. TISSUE DENSITY: c. [...] Routine screening mammogram BILATERAL in 1 year. [address], 88989 3342F, 7025F Dictating Physician: AMANDO PABON MD Electronically Signed by: AMANDO PABON MD Dic Date/Time: 10/25/22 1603 Sign date/Time: 10/25/22 1604 Marcela Mae NP IMG BI PROCEDURES Final Result from Last 3 Months or Most Recently Relevant to Health Maintenance Insurance MEDICARE [facility] Care Teams Showroom Consultant Relationship Specialty Start Date End Date Dmitry Jason MD [address] [place] [phone] PCP - General Internal Medicine 07/02/24
== END 2025-03-21 08:00 | disposition home or self-care (01) ==
LOC: HO.ENCR 13:20
PROVIDERS: Visit Provider Internal Medicine
DX: E11.65 Type 2 diabetes mellitus with hyperglycemia (principal)

== ENCOUNTER → 2025-03-20 13:19 | Outpatient (BNVA) | payer MEDICARE, SELFPAY | PROVIDERS: Visit Provider Internal Medicine | DX: E11.65 Type 2 diabetes mellitus with hyperglycemia (principal); Z79.4 Long term (current) use of insulin | CPT/HCPCS: 82947; 83036; 99212 ==